=== PATIENT | female | born 1980 | race Caucasian/White ===

== ENCOUNTER 2022-12-03 12:12 | Emergency (ER) | payer OTHER, SELFPAY ==
[2022-12-03] VITALS (23 sets, daily range): BP systolic 114–176; BP diastolic 68–126; PULSE 57–79; RESP 7–23; TEMP 36.8; O2SAT 95–100; BMI 29.5
--- NOTE | 2022-12-03 12:41 | ECG_ITS ---
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
--- NOTE | 2022-12-03 12:41 | XR_ITS ---
The [address] [address] Patient Name: ELIEZER BUTLER MRN: [id number] date: 1980 Sex: F Assigned Patient Location: ED.MAIN Current Patient Location: ER Accession/Order Number: [id number] Exam Date: 12/03/2022 13:00 Report Date: 12/03/2022 13:37 At the request of: RAMONA TY Procedure: XR chest 1V EXAM: XR chest 1V HISTORY: chest pain COMPARISON: 07/14/2020. TECHNIQUE: Chest X-ray, 1 view. FINDINGS: Support devices: None. Lungs/pleura: No consolidation, effusion, or pneumothorax. Heart and mediastinum: Normal contours. Bones: No acute abnormality identified. XR/XR chest 1V IMPRESSION: No active disease. Electronically authenticated by: MOHSEN JEFF Date: 12/03/2022 13:37
--- NOTE | 2022-12-03 12:41 | ED.CHESTPAI1 ---
HPI - Chest Pain General Chief Complaint: Chest Pain Stated Complaint: CHEST PAIN/WEAKNESS Time Seen by Provider: 12/03/22 12:41 Source: patient Mode of arrival: walk-in Limitations: no limitations History of Present Illness HPI narrative: patient here complaining of chest discomfort earlier today. She says she was in the store shopping and she developed discomfort over her left chest that radiated into her left arm. She said lasted about three minutes. She said she stopped shopping, one out to the car and the pain eventually went away. She had some aching in her left shoulder. It did not radiate to the neck or the jaw. She said she's had some aching in the back of her neck for several weeks but this 1st time she had any discomfort in her chest. She says it did not feel like acid reflux or acid indigestion. Cardiovascular risk factors include hypertension but negative for family history diabetes cholesterol or tobacco products. She did not have any associated shortness of breath but she did get sweaty. She's not seen a aviation safety technician in the past and has not had any history of heart murmurs or cardiovascular disease. She did not notice any palpitations or fluttering at the time. She feels better. EKG is done on arrival and it is normal sinus rhythm. Her blood pressure was elevated it was rechecked manually and admits still elevated but not as abnormally elevated as it was with the automatic cuff. She states she is compliant with her blood pressure meds and doesn't miss a dose. Related Data Home Medications Medication Instructions Recorded Confirmed dexlansoprazole 60 mg 60 mg PO QDAY 12/03/22 12/03/22 capsule,biphase delayed release metoprolol succinate 50 mg 50 mg PO QDAY 12/03/22 12/03/22 tablet,extended release 24 hr Allergies Allergy/AdvReac Type Severity Reaction Status Date / Time No Known Drug Allergies Allergy Verified 12/03/22 12:21 [facility] [place] Social History Smoking status: Current every day smoker Exam Narrative Exam Narrative: awake alert relaxed does not appear apprehensive or nervous. Pleasant good historian vitals as noted here. Pulse ox is normal 12-lead EKG shows normal sinus rhythm. Her skin is warm and dry mucous members are moist and pink with no pallor or scleral icterus or anemia. Chest shows no clicks rubs or murmurs on auscultation of the heart. Lungs show lungs be clear with no wheezes rales or rhonchi. There is no pleural or pericardial rub. She has no discomfort in the epigastric area. Lower extremities show no edema colitis swelling or discomfort. Psych and neuro very pleasant oriented no neurological deficits symptoms and she's not typically anxious. Constitutional Vital Signs, click to edit/add: Last Vital Signs Temp 98.3 F 12/03/22 12:21 Pulse 68 12/03/22 14:31 Resp 17 12/03/22 14:31 BP 121/68 12/03/22 14:31 Pulse Ox 99 12/03/22 14:31 O2 Del Method Room Air 12/03/22 12:21 Course Vital Signs Vital signs: Vital Signs Temperature 98.3 F 12/03/22 12:21 Pulse Rate 67 12/03/22 12:21 Respiratory Rate 18 12/03/22 12:21 Blood Pressure 170/90 H 12/03/22 12:21 Pulse Oximetry 97 12/03/22 12:21 Oxygen Delivery Method Room Air 12/03/22 12:21 Temperature 98.3 F 12/03/22 12:21 Pulse Rate 68 12/03/22 14:31 Respiratory Rate 17 12/03/22 14:31 Blood Pressure 121/68 12/03/22 14:31 Pulse Oximetry 99 12/03/22 14:31 Oxygen Delivery Method Room Air 12/03/22 12:21 MDM - Chest Pain MDM Narrative Medical decision making narrative: patient's 12-lead EKG on arrival here shows normal sinus rhythm with normal VA QRS and QT intervals. There is no ectopy ischemia or ST segment elevation. The patient remained asymptomatic while here. Her troponin studies were done one and half hours after initial lab draw. Both studies are normal. She has only one cardiovascular risk factor. I believe she is okay for outpatient management but should follow-up to primary care doctor. When she arrived here her blood pressure was substantially elevated that it decreased and remained within normal parameters with no therapeutic intervention. That may have caused some of her symptoms. Lab Data Labs: Lab Results 12/03/22 12/03/22 12/03/22 Range/Units 12:32 12:53 13:45 WBC 6.5 (4.0-11.0) 10^3/uL RBC 3.89 L (4.20-5.40) 10^6/uL Hgb 12.5 (12.0-16.0) g/dL Hct 37.4 (36.0-48.0) % MCV 96.1 (81.0-99.0) fL MCH 32.1 (26.7-34.0) pg MCHC 33.4 (29.9-35.2) g/dL RDW 11.6 (11.0-15.0) % Plt Count 220 (150-450) 10^3/uL MPV 11.7 (9.5-13.5) fL Neut % (Auto) 63.0 (43.0-75.0) % Lymph % (Auto) 22.2 (20.5-60.0) % [place] % (Auto) 10.9 (1.7-12.0) % Eos % (Auto) 2.8 (0.9-7.0) % Baso % (Auto) 0.5 (0.2-2.0) % Neut # (Auto) 4.1 (1.4-6.5) 10^3/uL Lymph # (Auto) 1.4 (1.2-3.8) 10^3/uL [place] # (Auto) 0.7 (0.3-0.8) 10^3/uL Eos # (Auto) 0.2 (0.0-0.7) 10^3/uL Baso # (Auto) 0.0 (0.0-0.1) 10^3/uL Abs Immat Gran (auto) 0.04 H (0.00-0.03) 10^3/uL Imm/Tot Granulo (auto) 0.6 H (0.0-0.5) % Sodium 141 (136-145) mmol/L Potassium 3.8 (3.5-5.1) mmol/L Chloride 106 (98-107) mmol/L Carbon Dioxide 26.7 (21.0-32.0) mmol/L Anion Gap 12.1 BUN 10.0 (7.0-18.0) mg/dL Creatinine 0.74 (0.55-1.02) mg/dL Est GFR ( Amer) >60 (>=60) Est GFR (Non-Af Amer) >60 (>=60) BUN/Creatinine Ratio 13.5 Glucose 105 (74-106) mg/dL Calcium 8.2 L (8.5-10.1) mg/dL Total Bilirubin 0.4 (0.2-1.0) mg/dL AST 39 H (15-37) U/L ALT 64 H (14-59) U/L Alkaline Phosphatase 82 (46-116) U/L Troponin I High Sens 4.0 4.7 (4.0-51.3) pg/mL NT-Pro-B Natriuret Pep 57.0 (<=450.0) pg/mL Total Protein 7.4 (6.4-8.2) g/dL Albumin 3.7 (3.4-5.0) g/dL Globulin 3.7 g/dL Albumin/Globulin Ratio 1.0 Discharge Plan Discharge Chief Complaint: Chest Pain Clinical Impression: Chest pain, Hypertension Patient Disposition: Home, Self-Care Time of Disposition Decision: 14:53 Prescriptions / Home Meds: No Action dexlansoprazole 60 mg capsule,biphase delayed releas 60 mg PO QDAY metoprolol succinate 50 mg tablet extended release 24 hr 50 mg PO QDAY Additional Instructions: follow-up with primary care doctor if he have any further events for further diagnostic testing. Stand Alone Forms: Portal Instructions Referrals: Kimberly Boles MD [Primary Care Provider] - 1 week
[2022-12-03 13:02] LABS: Anion Gap 12.1
[2022-12-03 13:12] LABS: Alanine Aminotransferase 64 U/L (14-59); Albumin Level 3.7 g/dL (3.4-5.0); Alkaline Phosphatase 82 U/L (46-116); Aspartate Amino Transferase 39 U/L (15-37); BUN Creatinine Ratio 13.5; Bilirubin Total 0.4 mg/dL (0.2-1.0); Calcium 8.2 mg/dL (8.5-10.1); Carbon Dioxide 26.7 mmol/L (21.0-32.0); Chloride 106 mmol/L (98-107); Estimated GFR (African America >60 (>=60); Estimated GFR (Non-African Ame >60 (>=60); Globulin 3.7 g/dL; Glucose 105 mg/dL (74-106); Potassium 3.8 mmol/L (3.5-5.1); Sodium 141 mmol/L (136-145); Total Protein 7.4 g/dL (6.4-8.2)
[2022-12-03 13:12] LABS: Basophils Percent Auto 0.5 % (0.2-2.0); Eosinophils Absolute Auto 0.2 10^3/uL (0.0-0.7); Eosinophils Percent Auto 2.8 % (0.9-7.0); Hematocrit 37.4 % (36.0-48.0); Hemoglobin 12.5 g/dL (12.0-16.0); Immature Granulocytes Abs Auto 0.04 10^3/uL (0.00-0.03); Immature Granulocytes Pct Auto 0.6 % (0.0-0.5); Lymphocytes Absolute Auto 1.4 10^3/uL (1.2-3.8); Lymphocytes Percent Auto 22.2 % (20.5-60.0); Mean Corpuscular HGB Conc 33.4 g/dL (29.9-35.2); Mean Corpuscular Hemoglobin 32.1 pg (26.7-34.0); Mean Corpuscular Volume 96.1 fL (81.0-99.0); Mean Platelet Volume 11.7 fL (9.5-13.5); Monocytes Absolute Auto 0.7 10^3/uL (0.3-0.8); Monocytes Percent Auto 10.9 % (1.7-12.0); Neutrophils Absolute Auto 4.1 10^3/uL (1.4-6.5); Platelet Count 220 10^3/uL (150-450); Red Blood Count 3.89 10^6/uL (4.20-5.40); Red Cell Distribution Width 11.6 % (11.0-15.0); White Blood Count 6.5 10^3/uL (4.0-11.0)
[2022-12-03 14:27] LABS: Troponin I High Sensitivity 4.7 pg/mL (4.0-51.3)
== END 2022-12-03 15:01 | disposition home or self-care (01) ==
PROVIDERS: Emergency Provider Emergency Medicine Emergency Medical Services; PCP Family Medicine
DX: R07.9 Chest pain, unspecified (principal); I10 Essential (primary) hypertension; Z79.899 Other long term (current) drug therapy; F17.210 Nicotine dependence, cigarettes, uncomplicated
CPT/HCPCS: 36415; 71045; 80053; 83880; 84484; 85025; 93005; 99285

== ENCOUNTER 2023-08-17 10:14 | Emergency (ER) | payer OTHER, SELFPAY ==
[2023-08-17 10:17] VITALS: BP 165/98; PULSE 65; TEMP 37.1; O2SAT 97; BMI 39.6
--- NOTE | 2023-08-17 10:46 | ED_ITS ---
HPI HPI - General Adult General Chief complaint: Shortness of Breath/Dyspnea Stated complaint: THROAT PAIN Time Seen by Provider: 08/17/23 10:46 Source: patient Mode of arrival: walk-in Limitations: no limitations History of Present Illness HPI narrative: This patient is here Planing of a sore throat. Is been present for couple days. 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 She is not on any antibiotics. She has not had mononucleosis in the past. She does not have any classic viral type symptomatology is primarily a sore throat. She is not allergic to any medication. Her voice is normal. She does not have sneezing. No cough or congestion in the chest. Related Data Home Medications ?Medication ?Instructions ?Recorded ?Confirmed dexlansoprazole 60 mg 60 mg PO QDAY 12/03/22 12/03/22 capsule,biphase delayed release metoprolol succinate 50 mg 50 mg PO QDAY 12/03/22 12/03/22 tablet,extended release 24 hr Allergies Allergy/AdvReac Type Severity Reaction Status Date / Time No Known Drug Allergies Allergy Verified 12/03/22 12:21 Opioid HPI Opioid Management Most Recent Opioid Data: No Data to Display [facility] Social History Smoking status: Current every day smoker Exam Narrative Exam Narrative: Awake alert voice is normal phonation is normal she is not salivating airway is widely patent. On clinical examination of her throat she does have some tender adenitis on the right submandibular area but the left side is asymptomatic. Examining her hypopharynx the uvula and the palate are normal. She does have exudate and swelling of the right tonsillar area. There is no evidence of a peritonsillar abscess clinically. Her voice is normal. There is no other cervical adenitis so it is unlikely that she has mononucleosis. Her chest she has no cough congestion or respiratory distress. Her skin integument are normal with no petechia purpura rash or exanthem. Skin is warm and dry Constitutional Vital Signs, click to edit/add: Last Vital Signs Temp 98.7 F 08/17/23 10:17 Pulse 65 08/17/23 10:17 Resp 18 08/17/23 10:17 BP 165/98 H 08/17/23 10:17 Pulse Ox 97 08/17/23 10:17 O2 Del Method Room Air 08/17/23 10:17 Course Vital Signs Vital signs: Vital Signs Temperature 98.7 F 08/17/23 10:17 Pulse Rate 65 08/17/23 10:17 Respiratory Rate 18 08/17/23 10:17 Blood Pressure 165/98 H 08/17/23 10:17 Pulse Oximetry 97 08/17/23 10:17 Oxygen Delivery Method Room Air 08/17/23 10:17 Temperature 98.7 F 08/17/23 10:17 Pulse Rate 65 08/17/23 10:17 Respiratory Rate 18 08/17/23 10:17 Blood Pressure 165/98 H 08/17/23 10:17 Pulse Oximetry 97 08/17/23 10:17 Oxygen Delivery Method Room Air 08/17/23 10:17 Medical Decision Making MDM Narrative Medical decision making narrative: This patient is monoscreen is negative as clinically suspected. Somewhat surprising is her strep throat test is negative but due to clinical findings I will initiate antibiotic therapy pending culture Lab Data Labs: Lab Results 08/17/23 08/17/23 Range/Units 10:22 10:44 Monoscreen Negative (NEGATIVE) Streptococcus Screen Negative Discharge Plan Discharge Stand Alone Forms: Portal Instructions Chief Complaint: Shortness of Breath/Dyspnea Clinical Impression: Acute tonsillitis Patient Disposition: Home, Self-Care Time of Disposition Decision: 11:36 Prescriptions / Home Meds: No Action dexlansoprazole 60 mg capsule,biphase delayed releas 60 mg PO QDAY metoprolol succinate 50 mg tablet extended release 24 hr 50 mg PO QDAY Print Language: [place] Additional Instructions: Amoxicillin/Medrol pack Referrals: Kimberly Boles MD [Primary Care Provider] - 1 week
[2023-08-17 10:47] LABS: Internal Control Within Normal Limits; Strep A Antigen Screen Negative
[2023-08-17 11:21] LABS: Internal Control Within Normal Limits; Mono Screen NEGATIVE (NEGATIVE)
== END 2023-08-17 11:47 | disposition home or self-care (01) ==
PROVIDERS: Emergency Provider Emergency Medicine Emergency Medical Services; PCP Family Medicine
DX: J03.90 Acute tonsillitis, unspecified (principal)
CPT/HCPCS: 86308; 87070; 87880; 99283

== ENCOUNTER 2024-02-09 03:06 | Emergency (ER) | payer OTHER, SELFPAY ==
--- OUTSIDE RECORDS SUMMARY | 2024-02-09 03:12 | XMS_ITS | CCD ---
Author Organization [facility] Care Team Providers Care Research Fellow Name Role Phone CRISTINA RAMIREZ Attending Unavailable JOSELUIS LAO Referring Unavailable KIMBERLY BOTELLO Primary Care Unavailable JENNIFER OLIVIER Admitting Unavailable Kimberly Botello Primary Care Provider LEO Schroeder, DR MALLOY Consulting Unavailable LEO Schroeder, DR MALLOY Attending Unavailable LEO Schroeder, DR MALLOY Admitting Unavailable ROSMERY, DR KIMBERLY Peñaloza Primary Care Unavailable ROSMERY, DR KIMBERLY Peñaloza Primary Care Unavailable DR KIMBERLY BOTELLO Consulting Unavailable ROSMERY, DR KIMBERLY Peñaloza Attending Unavailable ROSMREY, DR KIMBERLY Peñaloza Admitting Unavailable Kimberly Botello Unavailable Medications Current Medications Medication Drug Class(es) Dates Sig (Normalized) Sig (Original) amoxicillin 500 mg oral capsule (4 sources) Penicillin-class Antibacterial Start: 05-10-2022 take 1 capsule by mouth every eight hours Amoxicillin 500 MG 1 capsule Orally every 8 hrs for 5 day(s) Jan, Active benzonatate 200 mg oral capsule (2 sources) Non-narcotic Antitussive Start: 01-23-2023 take 1 capsule by mouth every eight hours Benzonatate 200 MG 1 capsule Orally Three times a day for 10 day(s) Jan, Active cyclobenzaprine hydrochloride 10 mg oral tablet (2 sources) Muscle Relaxant Start: 08-24-2019 take 1 tablet by mouth every eight hours Cyclobenzaprine HCl 10 MG 1 tablet as needed Orally Three times a day for 10 days Aug, Active ferrous sulfate 325 mg oral tablet (1 source) Start: 05-30-2023 take 1 tablet by mouth once daily Ferrous Sulfate (Feosol) 325 mg (65 mg iron) tablet Active 325 MG PO Daily May 30, 2023 12:00am Iron (2 sources) Iron Active meloxicam 15 mg oral tablet (1 source) Nonsteroidal Anti-inflammatory Drug Start: 12-11-2023 take 15 mg by mouth once daily Meloxicam Active 15 MG PO Daily December 11, 2023 12:00am 24 hr metoprolol succinate 50 mg extended release oral tablet (4 sources) beta-Adrenergic Juancarlos Start: 05-30-2023 End: 08-10-2023 take 50 mg by mouth once daily Metoprolol Succinate Active 50 MG PO Daily August 10, 2023 8:39am take 1 tablet by mouth once kenneth y Metoprolol Succinate ER 50 MG take 1 tablet by mouth once daily for 30 days Active pantoprazole (2 sources) Proton Pump Inhibitor Pantoprazole Sodium Active predniSONE 20 mg oral tablet (2 sources) Start: 0 take 2 tablets by mouth every twenty-four hours predniSONE 20 MG 2 tablet Orally Once a day for 6 day(s) Aug, Active Completed/Discontinued Medications Medication Drug Class(es) Dates Sig (Normalized) Sig (Original) Azithromycin (1 source) Macrolide Antimicrobial Start: 05-30-2023 End: 12-11-2023 Azithromycin Discontinued 0 PO .COMPLEX 6 May 30, 2023 12:00am December 11, 2023 3:52pm For 250 mg dose pack: take 500 mg today (day 1), then 250 mg for 4 days (days 2-5) PO dexlansoprazole 60 mg delayed release oral capsule (3 sources) Proton Pump Inhibitor Start: 05-30-2023 End: 12-11-2023 take 60 mg by mouth once daily Dexlansoprazole Discontinued 60 MG PO Daily May 30, 2023 12:00am December 11, 2023 3:52pm Start: 06-02-2022 take 1 capsule by [facility] every twenty-four hours Dexilant 60 MG 1 capsule Orally Once a day for 30 days May, Active Ketorolac (2 sources) Nonsteroidal Anti-inflammatory Drug, Cyclooxygenase Inhibitor Start: 08-24-2019 Toradol per 15 mg Aug, 30 mg naproxen 500 mg oral tablet (3 sources) Nonsteroidal Anti-inflammatory Drug Start: 05-30-2023 End: 05-30-2023 take 500 mg by mouth twice daily Naproxen Discontinued 500 MG PO Twice daily May 30, 2023 12:00am May 30, 2023 1:42pm Start: 08-24-2019 take 1 tablet by [facility] every twelve hours at mealtime as needed Naproxen Sodium 550 MG 1 tablet with food or milk as needed Orally every 12 hrs for 7 days Aug, Active Problems Active Problems Problem Classification Problem Date Documented Da te Episodic/Chronic Abdominal pain (6 sources) Generalized abdominal pain; Translations: [Generalized abdominal pain] Onset: 08-22-2018 Episodic Acute bronchitis (2 sources) Acute bronchitis; Translations: [Acute bronchitis due to other specified organisms] Episodic Bacterial infection; unspecified site (1 source) Other specified bacterial agents as the cause of diseases classified elsewhere Episodic Conditions associated with dizziness or vertigo (3 sources) Benign paroxysmal positional vertigo; Translations: [Benign paroxysmal vertigo, right ear] 05-30-2023 Episodic Deficiency and other anemia (3 sources) Anemia; Translations: [Anemia, unspecified] 05-30-2023 Episodic Deficiency and other anemia (2 sources) Iron deficiency anemia; Translations: [Iron deficiency anemia, unspecified] Episodic Esophageal disorders (7 sources) Esophageal reflux finding; Translations: [Esophageal reflux] Onset: 03-28-2017 05-30-2023 Chronic Essential hypertension (3 sources) Essential hypertension; Translations: [Essential (primary) hypertension] 05-30-2023 Chronic Fluid and electrolyte disorders (3 sources) Hypokalemia; Translations: [Hypokalemia] Onset: 05-25-2021 Episodic Malaise and fatigue (2 sources) Fatigue; Translations: [Other fatigue] Episodic Nausea and vomiting (2 sources) Nausea; Translations: [Nausea] Episodic Nonspecific chest pain (2 sources) Chest pain; Translations: [Chest pain, unspecified] Episodic Other aftercare (1 source) Other nursing home (current) drug therapy; Translations: [OTH NURSING HOME CURRENT DRUG THERAPY] Onset: 05-12-2022 Episodic Other circulatory disease (2 sources) Elevated blood-pressure reading without diagnosis of hypertension; Translations: [Elevated blood-pressure reading, without diagnosis of hypertension] Episodic Other connective tissue disease (2 sources) Muscle pain; Translations: [MYALGIA, UNSPECIFIED SITE] Episodic Other gastrointestinal disorders (2 sources) Abdominal bloating; Translations: [Abdominal distension (gaseous)] Episodic Other lower respiratory disease (1 source) Cough; Translations: [Acute cough] 05-30-2023 Episodic Other nervous system disorders (3 sources) Loss of sense of smell; Translations: [Anosmia] 05-30-2023 Episodic Other nutritional; endocrine; and metabolic disorders (2 sources) Body mass index 30+ - obesity; Translations: [Body mass index 36.0-36.9, adult] Onset: 09-13-2017 Chronic Other nutritional; endocrine; and metabolic disorders (2 sources) Obese class II; Translations: [Body mass index 37.0-37.9, adult] Onset: 03-28-2017 Chronic Other nutritional; endocrine; and metabolic disorders (2 sources) Loss of appetite; Translations: [Anorexia] Episodic Other upper respiratory infections (4 sources) Chronic sinusitis; Translations: [Chronic sinusitis, unspecified] Chronic Other upper respiratory infections (7 sources) Acute pharyngitis, unspecified; Translations: [Acute pharyngitis] Onset: 05-10-2022 Episodic Screening and history of mental health and substance abuse codes (1 source) Personal history of nicotine dependence; Translations: [PERSONAL HISTORY OF NICOTINE DEPEND] Onset: 05-12-2022 Episodic Spondylosis; intervertebral disc disorders; other back problems (6 sources) Sacroiliac disorder; 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, sacral and sacrococcygeal region] 05-30-2023 Chronic Unclassified (2 sources) Exposure to acute respiratory syndrome coronavirus 2; Translations: [Contact with and (suspected) exposure to COVID-19] Viral infection (2 sources) Disease caused by 2019-nCoV; Translations: [COVID-19] Past or Other Problems Problem Classification Problem Date Documented Date Episodic/Chronic Abdominal hernia (2 sources) Diaphragmatic hernia; Translations: [Diaphragmatic hernia without obstruction or gangrene] Onset: 10-16-2018 Episodic Cardiac dysrhythmias (4 sources) Palpitations; Translations: [Palpitations] Onset: 03-28-2017 Episodic Deficiency and other anemia (4 sources) Iron deficiency anemia, unspecified; Translations: [IRON DEFICIENCY ANEMIA UNSPECIFIED] Onset: 05-21-2021 Episodic Gastritis and duodenitis (2 sources) Acute gastritis; Translations: [Acute gastritis without mention of hemorrhage] Onset: 10-16-2018 Episodic Other skin disorders (2 sources) Mass in head or neck; Translations: [Swelling, mass, or lump in head and neck] Onset: 09-13-2017 Episodic Residual codes; unclassified (2 sources) Requires influenza virus vaccination; Translations: [Need for prophylactic vaccination and inoculation, Influenza] Onset: 01-10-2018 Episodic Residual codes; unclassified (2 sources) C/O - a back symptom; Translations: [Other symptoms referable to back] Onset: 02-02-2018 Episodic Unclassified (2 sources) Screening; Translations: [Screening for unspecified condition] Onset: 01-10-2018 Results Test Name Value Interpretation Reference Range Facility CBC AUTO DIFFon 05-21-2021 BASO # 0.0 103/ul Normal 0.0-0.1 [facility] Comment on above: Performed By: #### C BC #### [facility] [address] [address] [address] Da Graham Basophils/100 WBC (Bld) 0.3 % Normal 0.2-2.0 [facility] Comment on above: Performed By: #### C BC #### [facility] [address] [address] [address] Da Graham EO # 0.2 103/ul Normal 0.0-0.7 [facility] Comment on above: Performed By: #### C BC #### [facility] [address] [address] [address] Da Graham Eosinophils/100 WBC (Bld) 2.3 % Normal 0.9-7.0 [facility] Comment on above: Performed By: #### C BC #### [facility] [address] [address] [address] Da Graham Erythrocyte distribution width (RBC) [Ratio] 11.5 % Normal 11.0-15.0 [facility] Comment on above: Performed By: #### C BC #### [facility] [address] [place] [address] Dr. Da Graham Hematocrit (Bld) [Volume fraction] 41.0 % Normal 36.0-48.0 [facility] Comment on above: Performed By: #### C BC #### [facility] [address] [address] [address] Da Graham Hemoglobin (Bld) [Mass/Vol] 13.5 g/dL Normal 12.0-16.0 [facility] Comment on above: Performed By: #### C BC #### [facility] [address] [address] [address] Da Graham IG # 0.04 10e3/ul Critically high 0.00-0.03 [facility] Comment on above: Performed By: #### C BC #### [facility] [address] [address] [address] Da Graham IG % 0.5 % Normal 0.0-0.5 [facility] Comment on above: Performed By: #### C BC #### [facility] [address] [place] [address] Dr. Da Graham LYMPH # 1.9 103/ul Normal 1.2-3.8 [facility] Comment on above: Performed By: #### C BC #### [facility] [address] [place] [address] Dr. Da Graham Lymphocytes/100 WBC (Bld) 25.2 % Normal 20.5-60.0 [facility] Comment on above: Performed By: #### C BC #### [facility] [address] [place] [address] Dr. Da Graham MANUAL DIFF REQ NO Normal [facility] Comment on above: Performed By: #### C BC #### [facility] [address] [place] [address] Dr. Da Graham MCH (RBC) [Entitic mass] 31.6 pg Normal 26.7-34.0 [facility] Comment on above: Performed By: #### C BC #### [facility] [address] [place] [address] Dr. Da Graham MCHC (RBC) [Mass/Vol] 32.9 g/dL Normal 29.9-35.2 [facility] Comment on above: Performed By: #### C BC #### [facility] [address] [place] [address] Dr. Da Graham MCV (RBC) [Entitic vol] 96.0 fL Normal 81.0-99.0 [facility] Comment on above: Performed By: #### C BC #### [facility] [address] [place] [address] Dr. Da Graham MONO # 0.6 103/ul Normal 0.3-0.8 [facility] Comment on above: Performed By: #### C BC #### [facility] [address] [place] [address] Dr. Da Graham Monocytes/100 WBC (Bld) 7.7 % Normal 1.7-12.0 [facility] Comment on above: Performed By: #### C BC #### [facility] [address] [place] [address] Dr. Da Graham NEUT # 4.8 103/ul Normal 1.4-6.5 [facility] Comment on above: Performed By: #### C BC #### [facility] [address] [place] [address] Dr. Da Graham Neutrophils/100 WBC (Bld) 64.0 % Normal 43.0-75.0 [facility] Comment on above: Performed By: #### C BC #### [facility] [address] [place] [address] Dr. Da Graham Platelet mean volume (Bld) [Entitic vol] 11.4 fL Normal 9.5-13.5 [facility] Comment on above: Performed By: #### C BC #### [facility] [address] [place] [address] Dr. Da Graham PLT 247 103/ul Normal 150-450 [facility] Comment on above: Performed By: #### C BC #### [facility] [address] [place] [address] Dr. Da Graham RBC 4.27 106/ul Normal 4.20-5.40 [facility] Comment on above: Performed By: #### C BC #### [facility] [address] [place] [address] Dr. Da Graham WBC 7.5 103/ul Normal 4.0-11.0 [facility] Comment on above: Performed By: #### C BC #### [facility] [address] [address] [address] Da Graham FERRITINon 05-21-2021 Ferritin [Mass/Vol] 132.0 ng/mL Normal 6.2-137.0 [facility] Comment on above: Performed By: #### F ERR #### [facility] [address] [place] [address] Dr. Da Graham PROF CHEM 8 (BAS METB)on Anion gap [Moles/Vol] 11.2 mmol/L Normal [facility] Comment on above: Performed By: #### B MP #### [facility] [address] [place] [address] Dr. Da Graham Calcium [Mass/Vol] 8.0 mg/dL Critically low 8.4-10.2 [facility] Comment on above: Performed By: #### B MP #### [facility] [address] [place] [address] Dr. Da Graham Chloride [Moles/Vol] 104 mmol/L Normal 98-107 [facility] Comment on above: Performed By: #### B MP #### [facility] [address] [place] [address] Dr. Da Graham CO2 [Moles/Vol] 27.4 mmol/L Normal 22.0-30.0 [facility] Comment on above: Performed By: #### B MP #### [facility] [address] [place] [address] Dr. Da Graham Creatinine [Mass/Vol] 0.66 mg/dL Normal 0.52-1.04 [facility] Comment on above: Performed By: #### B MP #### [facility] [address] [place] [address] Dr. Da Graham EGFR-AF ANGUILLAN >60 Normal >=60 [facility] Comment on above: Performed By: #### B MP #### [facility] [address] [place] [address] Dr. Da Graham EGFR-NON AF ANGUILLAN >60 Normal >=60 [facility] Comment on above: Performed By: #### B MP #### [facility] [address] [address] [address] Da Graham Glucose [Mass/Vol] 129 mg/dL Critically high 74-106 [facility] Comment on above: Performed By: #### B MP #### [facility] [address] [address] [address] Da Graham Potassium [Moles/Vol] 3.6 mmol/L Normal 3.4-5.0 [facility] Comment on above: Performed By: #### B MP #### [facility] [address] [address] [address] Da Graham Sodium [Moles/Vol] 139 mmol/L Normal 137-145 [facility] Comment on above: Performed By: #### B MP #### [facility] [address] [address] [address] Da Graham Urea nitrogen [Mass/Vol] 10.0 mg/dL Normal 7.0-17.0 [facility] Comment on above: Performed By: #### B MP #### [facility] [address] [address] [address] Da Graham Urea nitrogen/Creatinine [Mass ratio] 15.2 mg/mg Normal [facility] Comment on above: Performed By: #### B MP #### [facility] [address] [address] [address] Da Luo 09[facility]16-[facility] EVELINE PLATT ([id number]) 1980 F Date Time Provider Department 09/16/20 BLAKE PATEL During your visit today, we recorded the following information about you: Alycia Ray 09/16/2020 1:53 PM Signed Patient did not show for appointment. Allergies As of Date: 09/16/2020 (No Known Allergies) Date Reviewed: 06/29/2020 Reviewed by: Cat Benson) Steve - Fully Assessed Reason for Visit: Missed Appointment [1304] Prescriptions as of 09/16/2020 Sig: METOPROLOL SUCCINATE ER 50 MG* Take 50 mg by mouth once kenneth* PANTOPRAZOLE 40 MG TABLET,DEL* Take 40 mg by mouth. IRON ORAL Take by mouth. DEXILANT 60 MG CAPSULE, DELAY* Take by mouth. METOPROLOL TARTRATE 50 MG TAB* Take 50 mg by mouth once kenneth* NORGESTIMATE 0.25 MG-ETHINYL * Take 1 tablet by mouth once d* FLONASE NASAL Use in the nose. MECLIZINE 25 MG TABLET Take 25 mg by mouth three reza* CETIRIZINE 5 MG-PSEUDOEPHEDRI* Take 1 tablet by mouth twice * Problem List As Of Date 09/16/2020 Noted Resolved Iron deficiency anemia due to chronic blood los*05/13/2020 Encounter Status:Closed by ALYCIA FELIX on 09/17/20 [facility] 06-24-2020 [facility] Visit (SP) Office ([facility]) EVELINE PLATT ([id number]) 1980 F Date Time Provider Department 06/24/20 2:15 PM BLAKE PATEL During your visit today, we recorded the following information about you: Temperature Pulse Respiration Blood pressure 97.4 degrees 98/minute 16/minute 135/68 Weight Height Last Period 94.1 kg 1.549 m 05/25/20 Blake Patel MD 06/25/2020 6:20 AM Signed NAME: Eveline Platt CLINIC NO.: [id number] DATE OF SERVICE: June 24, 2020 Some elements in this clinic note that are critical to medical decision making have been carefully reviewed and included from a prior clinic note dated: May 13, 2020 Referring Provider: Kimberly Botello Additional Clinicians involved in Eveline Platt's care: CC: anemia ASSESSMENT: 39 yo woman with chronic anemia requiring transfusions of blood as well as IV iron approximately 2 years ago (2018) now re-presenting with anemia and iron defficiency that is responding to oral iron at outset. I will schedule her for iron but do not anticipate her needing it. PLAN: 1. Repeat labs in 12 weeks 2. RTC in 12 weeks IV iron after 3. Take iron tabs M-F skip weekends HPI: Updated Visit, June 24, 2020: Eveline is 39 years old and returns in follow-up with improvement in her iron deficiency and anemia. She is still taking iron tablets Monday through Monday skipping the weekends and doing well with this plan. Her hemoglobin continues to improve and is now 13.1. She has no microcytic findings on her hemogram. However she notes being very fatigued. She reports that she does not sleep well due to back pain. We discussed potential causes of this including the potential for sleep apnea as well as the association with back pain and overall body weight. I kindly encouraged her to reexamine her nutritional intake and modify this as exercise is very difficult for her. She was interested in a nutrition consult. Initial Visit, May 13, 2020: Eveline Platt presents today Hematology and Oncology evaluation. She is a 39 year old female who presents with mild anemia and iron deficiency. In early March 2020, she had a hgb around 11.5 g/dL and was started on iron. She stopped iron approximately 1 month later but then developed purplish patches on her thighs and was seen in the ER where she was again identified as havinf anemia and low ferritin of 9. She presents for my recommendations. She also reports having needed transfusions approximately 2 years ago as well as iron infusions. She had pica at the time. She doesn't with this current presentation. She also endorses heavy menses. 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 Per HPI and otherwise negative by full review of organ systems. ECOG PERFORMANCE STATUS: 0 PHYSICAL EXAMINATION: Vitals: BP 135/68 Pulse 98 Temp (Src) 97.4 (Temporal) Resp 16 Ht 5' .984 (1.55m) Wt 207 lb 6.4 oz (94.1kg) SpO2 98% LMP 05/25/2020 BMI 39.21 kg/(m2). Body surface area is 2.01 meters squared. Exam limited to gross visualization where appropriate due to COVID-19. Gen.: This is an age-appropriate patient in no acute distress. Head: Appears atraumatic with no visible lesions. Eyes: Pupils equally round and reactive to light, extraocular muscles are intact. Neck: Supple. Mouth: Mucous membranes appeared to be moist. Respiratory: Appears to be respiring comfortably. Neurologic: Nonfocal to gross visualization. Alert and oriented ?3. Psychiatric: No evidence of inappropriate anxiety or depression. Skin: Visible areas of skin without rash, lesions, wounds or petechiae. ALLERGIES: ALLERGIES No Known Allergies MEDICATIONS: metoprolol succinate ER (TOPROL XL) 50 mg 24 hr tablet Take 50 mg by mouth once daily. pantoprazole DR (PROTONIX) 40 mg tablet Take 40 mg by mouth. ferrous sulfate (IRON ORAL) Take by mouth. Dexlansoprazole (DEXILANT) 60 mg CpDM Take by mouth. metoprolol tartrate, short acting, (LOPRESSOR) 50 mg tablet Take 50 mg by mouth once daily. norgestimate 0.25 mg-ethinyl estradiol 35 mcg (SPRINTEC) 0.25-35 mg-mcg per tablet Take 1 tablet by mouth once daily. fluticasone propionate (FLONASE NASAL) Use in the nose. meclizine (ANTIVERT) 25 mg tab Take 25 mg by mouth three times daily. cetirizine-pseudoephe drine (CETIRI-D) 5-120 mg per tablet Take 1 tablet by mouth twice daily. LABORATORY VALUES: WBC (k/uL) Date Value 06/24/2020 6.98 RBC (m/uL) Date Value 06/24/2020 4.45 Hemoglobin (g/dL) Date Value 06/24/2020 13.1 Hematocrit (%) Date Value 06/24/2020 40.6 MCV (fL) Date Value 06/24/2020 91.2 MCH (pG) Date Value 06/24/2020 29.4 MCHC (g/dL) Date Value 06/24/2020 32.3 RDW-CV (%) Date Value 06/24/2020 13.2 Platelet Count (k/uL) Date Value 06/24/2020 235 MPV (fL) Date Value 06/24/2020 11.5 Glucose (mg/dL) Date (more content not included)... Normal [facility] Comp Metabolic Panelon 06-24 Albumin [Mass/Vol] 4.5 g/dL Normal 3.9-4.9 [facility] ALP [Catalytic activity/Vol] 86 U/L Normal 34-123 [facility] ALT [Catalytic activity/Vol] 27 U/L Normal 7-38 [facility] Anion gap [Moles/Vol] 7 mmol/L Low 9-18 [facility] AST [Catalytic activity/Vol] 22 U/L Normal 13-35 [facility] Bilirubin [Mass/Vol] 0.2 mg/dL Normal 0.2-1.3 [facility] Calcium [Mass/Vol] 9.0 mg/dL Normal 8.5-10.2 [facility] Chloride [Moles/Vol] 106 mmol/L High 97-105 [facility] CO2 [Moles/Vol] 25 mmol/L Normal 22-30 [facility] Creatinine [Mass/Vol] 0.64 mg/dL Normal 0.58-0.96 [facility] eGFR- Amer. >60 Normal [facility] eGFR-All Other Races >60 Normal [facility] Comment on above: Result Comment: eGFR (Estimated GFR) Units of measure: mL/min/1.73 meters squared eGFR is derived from the reexpressed MDRD Study equation using the following parameters: serum creatinine, age, gender and race. The creatinine assay has been calibrated to be traceable to IDMS. An eGFR <60 mL/min/1.73m2 for >3 months is consistent with chronic kidney disease. Refer to KDOQI guidelines for clinical interpretation. In patients with unstable renal function, e.g. those with acute kidney injury, the eGFR may not accurately reflect actual GFR. Glucose [Mass/Vol] 101 mg/dL High 74-99 [facility] Comment on above: Result Comment: [facility] Association (ADA) provides guidance for cutoff values for fasting glucose and random glucose. The ADA defines fasting as no caloric intake for at least 8 hours. Fasting plasma glucose results between 100 to 125 mg/dL indicate increased risk for diabetes (prediabetes). Fasting plasma glucose results greater than or equal to 126 mg/dL meet the criteria for diagnosis of diabetes. In the absence of unequivocal hyperglycemia, results should be confirmed by repeat testing. In a patient with classic symptoms of hyperglycemia or hyperglycemic crisis, random plasma glucose results greater than or equal to 200 mg/dL meet the criteria for diagnosis of diabetes. Reference: Standards of Medical Care in Diabetes 2016, [place] Diabetes Association. Diabetes Care. 2016.39(Suppl 1). Potassium [Moles/Vol] 3.9 mmol/L Normal 3.7-5.1 [facility] Protein [Mass/Vol] 7.1 g/dL Normal 6.3-8.0 [facility] Sodium [Moles/Vol] 138 mmol/L Normal 136-144 [facility] Urea nitrogen [Mass/Vol] 10 mg/dL Normal 7-21 [facility] Ferritinon 06-24-2020 Ferritin [Mass/Vol] 64.2 ng/mL Normal 14.7-205.1 [facility] Comment on above: Performed By: #### F ERR, IRON #### [facility] [address] [place] [address] Iron and TIBCon 06-24-2020 Iron [Mass/Vol] 43 ug/dL Normal 41-186 [facility] Comment on above: Performed By: #### F ERR, IRON #### [facility] [address], [place] [address] TIBC 305 ug/dL Normal 232-386 [facility] Comment on above: Performed By: #### F ERR, IRON #### [facility] [address], [place] [address] Transferrin Saturatn 14 % Low 15-57 [facility] Comment on above: Performed By: #### F ERR, IRON #### [facility] [address], [place] [address] Remote CBCDIF (for [facility] use o nly)on 06-24-2020 Abs Baso <0.03 Normal <0.11 [facility] Abs [place] 0.76 k/uL Normal <0.87 [facility] Abs Neut 4.47 k/uL Normal 1.45-7.50 [facility] Absolute nRBC <0.01 Normal <0.01 [facility] Basophils/100 WBC (Bld) 0.3 % Normal [facility] DTYPE Auto Diff Normal [facility] Eosinophils (Bld) [#/Vol] 0.13 10*3/uL Normal <0.46 [facility] Eosinophils/100 WBC (Bld) 1.9 % Normal [facility] Erythrocyte distribution width (RBC) [Ratio] 13.2 % Normal 11.5-15.0 [facility] Hematocrit (Bld) [Volume fraction] 40.6 % Normal 36.0-46.0 [facility] Hemoglobin (Bld) [Mass/Vol] 13.1 g/dL Normal 11.5-15.5 [facility] Lymphocytes (Bld) [#/Vol] 1.60 10*3/uL Normal 1.00-4.00 [facility] Lymphocytes/100 WBC (Bld) 22.9 % Normal [facility] MCH 29.4 pG Normal 26.0-34.0 [facility] MCHC (RBC) [Mass/Vol] 32.3 g/dL Normal 30.5-36.0 [facility] MCV (RBC) [Entitic vol] 91.2 fL Normal 80.0-100.0 [facility] Monocytes/100 WBC (Bld) 10.9 % Normal [facility] Neutrophils/100 WBC (Bld) 64.0 % Normal [facility] NRBCs 0.0 /100 WBC Normal 0 [facility] Platelet mean volume (Bld) [Entitic vol] 11.5 fL Normal 9.0-12.7 [facility] Platelets (Bld) [#/Vol] 235 10*3/uL Normal 150-400 [facility] RBC (Bld) [#/Vol] 4.45 10*6/uL Normal 3.90-5.20 [facility] WBC (Bld) [#/Vol] 6.98 10*3/uL Normal 3.70-11.00 [facility] CNOVSPon 05-13-2020 CNOVSP Visit (SP) Office ([place]) EVELINE PLATT ([id number]) 1980 F Date Time Provider Department 05/13/20 11:15 AM BLAKE PATEL During your visit today, we recorded the following information about you: Temperature Pulse Respiration Blood pressure 97.3 degrees 79/minute 18/minute 142/87 Weight Height 92.6 kg 1.549 m Blake Patel MD 05/13/2020 12:21 PM Signed NAME: Eveline Platt CLINIC NO.: [id number] DATE OF SERVICE: May 13, 2020 Referring Provider: Kimberly Botello Consultation requested by Dr. Botello for an opinion regarding Ms. Eveline Platt, and my final recommendations will be communicated back to the requesting physician by way of shared medical record or letter via US mail. Additional Clinicians involved in Eveline Platt's care: CC: anemia ASSESSMENT: 39 yo woman with chronic anemia requiring transfusions of blood as well as IV iron approximately 2 years ago (2017) now re-presenting with anemia and iron defficiency that is responding to oral iron at outset. I will schedule her for iron but do not anticipate her needing it. She knows to call me if she has issues with oral iron. PLAN: 1. Labs today 2. Repeat in 6 weeks 3. RTC in 6 weeks IV iron after 4. Take iron tabs M-F skip weekends HPI: Initial Visit, May 13, 2020: Eveline Platt presents today Hematology and Oncology evaluation. She is a 39 year old female who presents with mild anemia and iron deficiency. In early March 2020, she had a hgb around 11.5 g/dL and was started on iron. She stopped iron approximately 1 month later but then developed purplish patches on her thighs and was seen in the ER where she was again identified as havinf anemia and low ferritin of 9. She presents for my recommendations. She also reports having needed transfusions approximately 2 years ago as well as iron infusions. She had pica at the time. She doesn't with this current presentation. She also endorses heavy menses. 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 Per HPI and otherwise negative by full review of organ systems. ECOG PERFORMANCE STATUS: 0 PHYSICAL EXAMINATION: Vitals: BP 142/87 Pulse 79 Temp (Src) 97.3 (Temporal) Resp 18 Ht 5' 1 (1.55m) Wt 204 lb 3.2 oz (92.6kg) SpO2 99% BMI 38.60 kg/(m2). Body surface area is 2 meters squared. Exam limited to gross visualization where appropriate due to COVID-19. Gen.: This is an age-appropriate patient in no acute distress. Head: Appears atraumatic with no visible lesions. Eyes: Pupils equally round and reactive to light, extraocular muscles are intact. Neck: Supple. Mouth: Mucous membranes appeared to be moist. Respiratory: Appears to be respiring comfortably. Neurologic: Nonfocal to gross visualization. Alert and oriented ?3. Psychiatric: No evidence of inappropriate anxiety or depression. Skin: Visible areas of skin without rash, lesions, wounds or petechiae. ALLERGIES: ALLERGIES No Known Allergies MEDICATIONS: ferrous sulfate (IRON ORAL) Take by mouth. Dexlansoprazole (DEXILANT) 60 mg CpDM Take by mouth. metoprolol tartrate, short acting, (LOPRESSOR) 50 mg tablet Take 50 mg by mouth once daily. norgestimate 0.25 mg-ethinyl estradiol 35 mcg (SPRINTEC) 0.25-35 mg-mcg per tablet Take 1 tablet by mouth once daily. fluticasone propionate (FLONASE NASAL) Use in the nose. meclizine (ANTIVERT) 25 mg tab Take 25 mg by mouth three times daily. cetirizine-pseudoephe drine (CETIRI-D) 5-120 mg per tablet Take 1 tablet by mouth twice daily. LABORATORY VALUES: WBC (k/uL) Date Value 05/13/2020 5.77 RBC (m/uL) Date Value 05/13/2020 4.30 Hemoglobin (g/dL) Date Value 05/13/2020 12.7 Hematocrit (%) Date Value 05/13/2020 38.8 MCV (fL) Date Value 05/13/2020 90.2 MCH (pG) Date Value 05/13/2020 29.5 MCHC (g/dL) Date Value 05/13/2020 32.7 RDW-CV (%) Date Value 05/13/2020 13.4 Platelet Count (k/uL) Date Value 05/13/2020 240 MPV (fL) Date Value 05/13/2020 11.2 DIAGNOSIS: (D50.0) Iron deficiency anemia due to chronic blood loss (primary encounter diagnosis) Plan: CBC + DIFF (FOR REMOTE [facility] USE), COMP METABOLIC PANEL, FERRITIN BLD, IRON + TIBC PAST MEDICAL HISTORY Diagnosis Date - Benign paroxysmal positional vertigo - Gastritis - GERD (gastroesophageal reflux disease) - Hiatal hernia - HTN (hypertension) - Iron deficiency anemia - Mass of submandibular region - Myalgia - Tachycardia PAST SURGICAL HISTORY Procedure Laterality Date - SALPINGECTOMY OR OOPHERECTOMY-ECTOPIC Right Social History Tobacco Use - Smoking status: Never Smoker - Smokeless tobacco: Never Used Substance Use Topics - Alcohol use: Not on file - Drug use: Not on file FAMILY HISTORY Problem Relation Age of Onset - Cancer Mother Brain tumor Blake Patel MD, CPE [facility] (more content not included)... Normal [facility] Comp Metabolic Panelon 05-13 Albumin [Mass/Vol] 4.4 g/dL Normal 3.9-4.9 [facility] ALP [Catalytic activity/Vol] 81 U/L Normal 34-123 [facility] ALT [Catalytic activity/Vol] 38 U/L Normal 7-38 [facility] Anion gap [Moles/Vol] 7 mmol/L Low 9-18 [facility] AST [Catalytic activity/Vol] 29 U/L Normal 13-35 [facility] Bilirubin [Mass/Vol] 0.3 mg/dL Normal 0.2-1.3 [facility] Calcium [Mass/Vol] 9.2 mg/dL Normal 8.5-10.2 [facility] Chloride [Moles/Vol] 105 mmol/L Normal 97-105 [facility] CO2 [Moles/Vol] 27 mmol/L Normal 22-30 [facility] Creatinine [Mass/Vol] 0.69 mg/dL Normal 0.58-0.96 [facility] eGFR- Amer. >60 Normal [facility] eGFR-All Other Races >[address] [facility] Comment on above: Result Comment: eGFR (Estimated GFR) Units of measure: mL/min/1.73 meters squared eGFR is derived from the reexpressed MDRD Study equation using the following parameters: serum creatinine, age, gender and race. The creatinine assay has been calibrated to be traceable to IDMS. An eGFR <60 mL/min/1.73m2 for >3 months is consistent with chronic kidney disease. Refer to KDOQI guidelines for clinical interpretation. In patients with unstable renal function, e.g. those with acute kidney injury, the eGFR may not accurately reflect actual GFR. Glucose [Mass/Vol] 127 mg/dL High 74-99 [facility] Comment on above: Result Comment: The [place] Diabetes Association (ADA) provides guidance for cutoff values for fasting glucose and random glucose. The ADA defines fasting as no caloric intake for at least 8 hours. Fasting plasma glucose results between 100 to 125 mg/dL indicate increased risk for diabetes (prediabetes). Fasting plasma glucose results greater than or equal to 126 mg/dL meet the criteria for diagnosis of diabetes. In the absence of unequivocal hyperglycemia, results should be confirmed by repeat testing. In a patient with classic symptoms of hyperglycemia or hyperglycemic crisis, random plasma glucose results greater than or equal to 200 mg/dL meet the criteria for diagnosis of diabetes. Reference: Standards of Medical Care in Diabetes 2016, [place] Diabetes Association. Diabetes Care. 2016.39(Suppl 1). Potassium [Moles/Vol] 4.2 mmol/L Normal 3.7-5.1 [facility] Protein [Mass/Vol] 7.1 g/dL Normal 6.3-8.0 [facility] Sodium [Moles/Vol] 139 mmol/L Normal 136-144 [facility] Urea nitrogen [Mass/Vol] 9 mg/dL Normal 7-21 [facility] Ferritinon 05-13-2020 Ferritin [Mass/Vol] 45.5 ng/mL Normal 14.7-205.1 [facility] Comment on above: Performed By: #### F ERR, IRON #### [facility] [address] [place] [address] Iron and TIBCon 05-13-2020 Iron [Mass/Vol] 85 ug/dL Normal 41-186 [facility] Comment on above: Performed By: #### F ERR, IRON #### [facility] [address] [place] [address] TIBC 317 ug/dL Normal 232-386 [facility] Comment on above: Performed By: #### F ERR, IRON #### [facility] [address] [place] [id number] Transferrin Saturatn 27 % Normal 15-[address] [facility] Comment on above: Performed By: #### F ERR, IRON #### [facility] [address] [place] [address] Remote CBCDIF (for [facility] use o nly)on 05-13-2020 Abs Baso <0.03 Normal <0.11 [facility] Abs Maui 0.64 k/uL Normal <0.87 [facility] Abs Neut 3.85 k/uL Normal 1.45-7.50 [facility] Absolute nRBC <0.01 Normal <0.01 [facility] Basophils/100 WBC (Bld) 0.3 % Normal [facility] DTYPE Auto Diff Normal [facility] Eosinophils (Bld) [#/Vol] 0.19 10*3/uL Normal <0.46 [facility] Eosinophils/100 WBC (Bld) 3.3 % Normal [facility] Erythrocyte distribution width (RBC) [Ratio] 13.4 % Normal 11.5-15.0 [facility] Hematocrit (Bld) [Volume fraction] 38.8 % Normal 36.0-46.0 [facility] Hemoglobin (Bld) [Mass/Vol] 12.7 g/dL Normal 11.5-15.5 [facility] Lymphocytes (Bld) [#/Vol] 1.05 10*3/uL Normal 1.00-4.00 [facility] Lymphocytes/100 WBC (Bld) 18.2 % Normal [facility] MCH 29.5 pG Normal 26.0-34.0 [facility] MCHC (RBC) [Mass/Vol] 32.7 g/dL Normal 30.5-36.0 [facility] MCV (RBC) [Entitic vol] 90.2 fL Normal 80.0-100.0 [facility] Monocytes/100 WBC (Bld) 11.1 % Normal [facility] Neutrophils/100 WBC (Bld) 67.1 % Normal [facility] NRBCs 0.0 /100 WBC Normal 0 [facility] Platelet mean volume (Bld) [Entitic vol] 11.2 fL Normal 9.0-12.7 [facility] Platelets (Bld) [#/Vol] 240 10*3/uL Normal 150-400 [facility] RBC (Bld) [#/Vol] 4.30 10*6/uL Normal 3.90-5.20 [facility] WBC (Bld) [#/Vol] 5.77 10*3/uL Normal 3.70-11.00 [facility] Coding Summaryon 01-22-2019 Coding Summary CODING DATE: 01/22/2019 [facility] STATUS: Home 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 APC DESCRIPTION 5361 Level 1 Laparoscopy and Related Services ADMIT DX: REASON FOR VISIT DX: R10.2 Pelvic and perineal pain FINAL DX: PRINCIPAL: N83.01 Follicular cyst of right ovary SECONDARY: N83.8 Other noninflammatory disorders of ovary, fallopian tube and broad ligament N99.71 Accidental puncture and laceration of a genitourinary system organ or structure during a genitourinary system procedure Y92.234 Operating room of hospital as the place of occurrence of the external cause 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) PYMT PROC APC STAT DESCRIPTION DOCTOR NAME DATE 24974 7213 J1 Laparoscopy, surgical; Eliezer Torres DO with removal of adnexal structures (partial or total oophorectomy and/or salpingectomy) RT Right side (used to identify procedures performed on the right side of the body) 42454 3381 J1 Laparoscopy, surgical; Eliezer Torres DO with fulguration or excision of lesions of the ovary, pelvic viscera, or peritoneal surface by any method LT Left side (used to identify procedures performed on the left side of the body) NOTE: The code number assigned matches the documented diagnosis and / or procedure in the patient's chart. However, the narrative phrase printed from the coding software may appear abbreviated, or result in slightly different terminology. Coded By: Awilda Edouard Date Saved: 01/22/2019 10:54 am [facility] Lab - AP Resultson 9 Lab - AP Results [id number] .00OTGTIFF [facility] MAGR Postoperative Recordon 01-21-2019 MAGR Postoperative Record MAGR Phase II Record Summary Primary Physician: Eliezer Torres DO Finalized Date/Time: 01/21/19 13:15:02 Pt. Name: EVELINE PLATT/Sex: 1980 FEMALE Med Rec #: [id number] Physician: Eliezer Torres DO Financial #: [id number] Pt. Type: D Room/Bed: / Admit/Disch: 01/15/19 08:48:00 - 01/15/19 15:57:00 Institution: Phase II Case Times MAGR Pre-Care Text: Patient is free from s/s of injury. Patient remains free from compromised physical state related to surgery or anesthesia. Patient comfort maintained. Patient/family verbalize understanding of discharge instructions. Entry 1 In PACU II 01/15/19 14:21:00 Discharge from PACU 01/15/19 15:57:00 II Last Modified By: Brittany Soler RN 01/21/19 13:14:58 Post-Care Text: The patient remains free from s/s of injury. Patient's vital signs stable, circulation maintained, return to preop mental and physical status, opsite/dressing intact, minimal or absent nausea and vomiting, tolerates po intake. Patient verbalizes adequate pain control. Patient/family express understanding of discharge instructions. Finalized By: Brittany Soler RN Document Signatures Signed By: Brittany Soler RN 01/21/19 13:15 [facility] Pathology Sendout Teston Pathology Send Out. See Report [facility] Comment on above: Order Comment: Right fallopian tube and right ovaryPost op Dx: Pelvic pain Performed By: #### 2 [id number] ####[facility] (DEFAULT)[address] [place] [address] History and Physicalon 01-17 History and Physical [id number] .[facility] - Surgeon/P hysicianon 01-17-2019 Operative Report - Surgeon/Physician [id number] .00[facility] Provider Orderson 01-17-2019 Provider Orders [id number] [place] [address] Consent Formson 01-16-2019 Consent Forms [id number] [place] [address] MAGR Intraoperative Recordon 01-16-2019 MAGR Intraoperative Record MAGR Intra-Op Record Summary Primary Physician: Eliezer Torres DO Finalized Date/Time: 01/16/19 15:11:50 Pt. Name: EVELINE PLATT/Sex: 1980 FEMALE Med Rec #: [id number] Physician: Eliezer Torres DO Financial #: [id number] Pt. Type: D Room/Bed: / Admit/Disch: 01/15/19 08:48:00 - 01/15/19 15:57:00 Institution: Case Times MAGR Entry 1 Patient In Room Time 01/15/19 11:36:00 Out Room Time 01/15/19 13:26:00 Anesthesia Start Time 01/15/19 11:37:00 Stop Time 01/15/19 13:23:00 Surgery Start Time 01/15/19 12:03:00 Stop Time 01/15/19 13:20:00 Last Modified By: Bianka Frias RN 01/15/19 13:31:59 Case Attendance MAGR Entry 1 Entry 2 Entry 3 Case Attendee Eliezer Torres DO, Tray Frias RN, Bianka Role Performed Surgeon - Primary Anesthesiologist of Turbinated Bone Grinder Record Time In 01/15/19 11:36:00 01/15/19 11:36:00 01/15/19 11:36:00 Time Out 01/15/19 13:26:00 01/15/19 13:26:00 01/15/19 13:26:00 Procedure Tubal Ligation Tubal Ligation Tubal Ligation Laparoscopic Laparoscopic Laparoscopic Last Modified By: Rodriguez LEE, Bianka Frias RN, Bianka Meyer RN 01/15/19 13:33:51 01/15/19 13:32:06 01/15/19 13:32:06 Entry 4 Entry 5 Entry 6 Case Attendee Zev BALDERAS, Zamzam Bain, Alcira Kidd Role Performed Scrub Personnel Scrub Personnel Coal Inspector Time In 01/15/19 11:36:00 01/15/19 11:36:00 01/15/19 11:36:00 Time Out 01/15/19 13:26:00 01/15/19 13:26:00 01/15/19 13:26:00 Procedure Tubal Ligation Tubal Ligation Tubal Ligation Laparoscopic Laparoscopic Laparoscopic Last Modified By: Rodriguez LEE, Bianka Frias RN, Bianka Meyer RN 01/15/19 13:34:13 01/15/19 13:34:13 01/15/19 13:32:06 Entry 7 Case Attendee Brittany Guthrie RN Role Performed Turbinated Bone Grinder Time In 01/15/19 11:36:00 Time Out 01/15/19 13:26:00 Procedure Tubal Ligation Laparoscopic Last Modified By: Bianka Frias RN 01/15/19 13:34:13 Surgical Procedures MAGR Pre-Care Text: A.20 Verifies operative procedure, surgical site, and laterality Im.150 Develops individualized plan of care Entry 1 Procedure Tubal Ligation Primary Procedure Yes Laparoscopic Primary Surgeon Eliezer Torres DO Surgeon Comment RIGHT SALPINGO-OOPHORECTOMY AND DIAGNOSTIC LAPAROSCOPY Start 01/15/19 12:03:00 Stop 01/15/19 13:20:00 Anesthesia Type General Surgical Service Gynecology Wound Class Clean-Contaminated Technique Details Closure Technique Primary Entire procedure Yes was performed via laparoscope or robotic assistance Last Modified By: Bianka Frias RN 01/15/19 13:32:34 Post-Care Text: O.730 The patient's care is consistent with the individualized perioperative plan of care General Case Data MAGR Pre-Care Text: A.350.1 Classifies surgical wound Entry 1 Case Information OR MAGR OR 01 Case Level Level 4 Wound Class Clean-Contaminated Specialty Gynecology ASA Class 2 Diagnosis Preop Diagnosis PELVIC PAIN Postop Same As Preop Yes Postop Diagnosis PELVIC PAIN Blunt or No Is the procedure No penetrating injury considered occured prior to Emergent/Urgent? the start of the procedure: Last Modified By: Bianka Frias RN 01/15/19 12:16:19 Post-Care Text: O.760 Patient receives consistent and comparable care regardless of the setting Time Out MAGR Entry 1 Time out date/time 01/15/19 12:01:00 All team members Yes have introduced themselves by name and role Surgeon, Yes Surgeon reviews Yes anesthesia, nurse critical or confirm patient, unexpected steps, site, procedure operative duration, anticipated blood loss Anesthesia team Yes Nursing team Yes reviews any reviews sterility patient-specific (including concerns indicator results) and equipment issues/concerns Antibiotic Antibiotic N/A prophylaxis given within the last 60 minutes Is essential N/A imaging displayed? Last Modified By: Bianka Frias RN 01/15/19 12:16:44 Patient Positioning MAGR Pre-Care Text: A.280 Identifies baseline musculoskeletal status Im.40 Positions the patient Im.80 Applies safety devices Entry 1 Procedure Tubal Ligation Body Position Supine Laparoscopic Left Arm Position Tucked and padded at Right Arm Position Extended on padded arm side board Left Leg Position Extended Right Leg Position Extended Feet Uncrossed? Yes Press Points Checked Yes Additional [place] Pad Positioning Device Safety Strap Information Outcome Met (O.80) Yes Last Modified By: Bianka Frias RN 01/15/19 12:19:08 Post-Care Text: E.290 Evaluates musculoskeletal status O.80 Patient is free from signs and symptoms of injury related to positioning Skin Prep MAGR Pre-Care Text: A.30 Verifies allergies Im.270 Performs skin preparation Im.270.1 Implements protective measures to prevent skin and tissue injury due to chemical sources Entry 1 Skin Prep Syntegrity Prep Agents (Im.270) Povidone-Iodine, Prep By Bianka Frias RN, Chlorhexidine Gluconate Brittany Guthrie RN and Alcohol Prep Area (Im.270) Abdomen, Perineum Skin Prep Agent Dry Yes Without Pooling Hair Removal Syntegrity Hair Removal Methods No hair removal performed Outcome Met (O.100) Yes Last Modified By: Bianka Frias RN 01/15/19 12:19:48 Post-Care Text: E.10 Evaluates for signs and symptoms of physical injury to skin and tissue O.100 Patient is free from signs and symptoms of chemical injury Counts Verification MAGR Pre-Care Text: A.20 Verifies operative procedure, surgical site, and laterality A.20.2 Assesses the risk for unintended retained foreign body Im.20 Performs required counts Entry 1 Procedure Tubal Ligation Laparoscopic Counts Verification Initial Counts Items included in Instruments, Sponges, Initial Counts Manual the Initial Count Sharps Method Initial Counts Brittany Guthrie RN, Initial Count Time 01/15/19 11:50:00 Performed By Zev LUMP MAKERGregi Counts Verification Final Counts Items Included in Sponges, Sharps Final Count Method Manual Final Count Final Count Status Correct Final Counts Bianka Frias RN, Performed By Zev LUMP MAKERZamzam Final Count Time 01/15/19 13:10:00 Surgeon notified of Yes final counts status Outcome Met (O.20) Yes Last Modified By: Bianka Frias RN 01/15/19 13:10:52 Post-Care Text: E.50 Evaluates results of the surgical count O.20 Patient is free from unintended retained foreign objects Patient Care Devices MAGR Pre-Care Text: A.200 Assesses risk for normothermia regulation A.40 Verifies presence of prosthetics or corrective devices Im.280 Implements thermoregulation measures Im.60 Uses supplies and equipment within safe parameters Entry 1 Entry 2 Equipment Type FORCED WARM AIR UNIT FLOWTRON CALF CUFF REG Serial ?# Equipment Setting Per factory settings 43 per factory settings deg claude Last Modified By: Bianka Frias RN, RN, Jennifer 01/15/19 12:21:30 01/15/19 12:21:30 Post-Care Text: E.10 Evaluates signs and symptoms of physical injury to skin and tissue O.700 Patient is free from signs and symptoms of injury caused by extraneous objects Cautery MAGR Pre-Care Text: A.240 Assesses baseline skin condition A.40 Verifies presence of prosthetics or corrective devices Im.50 Implements protective measures to prevent injury due to electrical sources Entry 1 ESU Type Electrosurgical Unit Identification [id number] Number ESU Settings Syntegrity Cut Setting 20 Coag Setting 20 Grounding Pad Details Grounding Pad Yes Verified By Bianka Frias RN Needed? Grounding Pad Site Table Grounding Pad Outcome Met (O.10) Yes Last Modified By: Binaka Frias RN 01/15/19 12:22:01 Post-Care Text: E.10 Evaluates for signs and symptoms of physical injury to skin and tissue O.10 Patient is free from signs and symptoms of injury related to thermal sources Cultures and Specimens MAGR Pre-Care Text: A.350 Assesses susceptibility for infection A.10 Confirms patient identity Im.320 Manages culture specimen collection Im.330 Manages specimen handling and disposition Entry 1 Cultures Ordered n/a Specimens Ordered Yes Outcome Met (O.40) Yes Last Modified By: Bianka Frias RN 01/15/19 12:35:43 Post-Care Text: E.40 Evaluates correct processes have been performed for specimen handling and disposition O.40 Patient's specimen(s) is managed in the appropriate manner General Comments: Right tube and ovary Medication Administration MAGR Pre-Care Text: A.210 Identifies physiological status Im.220 Administers prescribed medications Entry 1 Time Administered 01/15/19 12:22:00 Medication 0.25% Marcaine with Epi Route of Admin Incisional/Surgical Site Dose 20 mL Volume 30 mL By Eliezer Torres DO Outcome Met (O.130) Yes Last Modified By: Bianka Frias RN 01/15/19 13:11:03 Post-Care Text: E.20 Evaluates response to medications O.130 Patient receives appropriately administered medication(s) Dressing/Packing MAGR Pre-Care Text: A.350 Assesses susceptibility for infection Im.290 Administer care to wound sites Entry 1 Skin Prep Agent Yes Site Abdomen Removed Prior to Dressing? Dressing Item Details Tape (Im.290) Wound Closure Strip Miscellaneous Sanitary Pad (Im.290) Outcome Met Yes Last Modified By: Bianka Frias RN 01/15/19 12:35:28 Post-Care Text: E.200 Evaluates progress of wound healing O.200 Patient's wound perfusion is consistent with or improved from baseline levels General Comments: Isadora Pants Departure from OR MAGR Entry 1 Present on Depart Oxygen Via Stretcher Post-op Destination PACU Skin DFO Condition Intact Description Condition Warm Description Condition Dry Description Report Given To Paty Anne RN Airway Maintenance Patient Status Stable Oxygen in Use? Yes Airway Device Simple mask Flow Rate 10 L/min Last Modified By: Bianka Frias RN 01/16/19 15:09:31 Case Comments Finalized By: Bianka Frias RN Document Signatures Signed By: Bianka Frias RN 01/16/19 15:11 Normal [facility] Operative Report - Surgeon/P sourav 01-16-2019 Operative Report - Surgeon/Physician DATE OF PROCEDURE: 01/15/19 SURGEON: Eliezer Torrse DO ANESTHESIA: Tray Gill MD (General) PREOPERATIVE DIAGNOSIS: Pelvic pain. POSTOPERATIVE DIAGNOSIS: 1. Pelvic pain. 2. Pending pathology. PROCEDURES: 1. Diagnostic laparoscopy. 2. Operative laparoscopy. 3. Left ovary cystectomy x2. 4. Right salpingo-oophorectomy . 5. Bowel adhesiolysis. 6. Repair of cervix laceration. COMPLICATIONS: None. ESTIMATED BLOOD LOSS: 75 cc. FLUIDS: Approximately 1500 cc of Lactated Ringers. URINE OUTPUT: The patient emptied her bladder just prior to the beginning of the procedure. FINDINGS: The cervix is long, closed and posterior. LAPAROSCOPIC FINDINGS: Slightly enlarged fibroid uterus in the posterior aspect of the fundus; large bowel adhesions to the left side-wall including the omentum; one (1) ectopic yellow left ovarian cyst 3 x 2 cm, one (1) intraovarian cyst 2 x 2 cm simple and fluid filled; right ovary and right tube with a small ovarian cyst. Left tube noted to be tortuously bound to the left ovary with scar tissue; no endometriosis. Upon removal of the single tooth tenaculum, laceration and bleeding noted on the cervix at the site of the removed single tooth and repaired with 2-0 Vicryl suture. PATHOLOGY: Right tube and right ovary sent to pathology. PROCEDURE: The patient was taken to the operating room and placed in the supine position. After adequate general anesthesia, she was placed into the dorsolithotomy position and was prepped and draped in normal sterile fashion. Next, a weighted speculum was placed in the patient's vagina and the anterior aspect of the cervix was grasped with a single tooth tenaculum. A note in the history and physical notes the patient bled from the site of the single tooth tenaculum 1 1/2 years ago from a laparoscopy. Next, an Geiger uterine manipulator was advanced into the cervix to provide a means to manipulate the uterus. The speculum was removed from the vagina. Attention was then turned to the patient's abdomen where a 5 mm skin incision was made in the infraumbilical fold. The Verses needle was then carefully introduced into the peritoneal cavity at a 45 degree angle while tenting the abdominal wall. Intraperitoneal placement was then confirmed by the use of a water-filled syringe and a drop in the intraabdominal pressure with the insufflation of CO2 gas. The trocar and sleeve were then advanced without difficulty into the abdomen where placement was confirmed by the laparoscope. The pneumoperitoneum was obtained with approximately 3 liters of CO2 gas and the 5 mm trocar and sleeve were advanced into the abdomen where placement was confirmed by the laparoscope. A second skin incision was then made 2 cm above the pubic symphysis in the right lower quadrant. The second 5 mm trocar and sleeve were then advanced under direct visualization. A third skin incision was then made 2 cm above the pubic symphysis in the left lower quadrant. The third trocar 10-12 mm and sleeve were then advanced under direct visualization. A survey of the patient's pelvis and abdomen revealed the anatomy as described under the findings. Next, the probe was used to slowly dissect the large bowel and omentum from the left side-wall which was draped up on the side-wall, this was brought down with the peanut and then with the LigaSure gently grasping and coagulating and cutting the bowel and omental adhesions to the left side-wall. Good hemostasis was noted and the bowel was returned to its proper anatomy location. Attention was then turned to the left ovary and tube which had 2 cysts on it; one that was an ectopic cyst coming off of the ovary at the base which was bright yellow, approximately 3 x 2 cm, this was then grasped at the point of attachment, coagulated and cut. A second left ovarian cyst was then noted to be in the ovary which was then grasped with the LigaSure, coagulated and cut noting straw colored fluid descending from the now opened left ovarian cyst. The cyst wall was then grasped, coagulated and cut until the cyst wall was removed. Excellent hemostasis was noted and the tortuous left tube was noted to be scared in different places to the ovary and the decision was made not to attempt adhesiolysis as she is not interested in more children. Attention was then turned to the right ovary and tube which has been causing her right lower pelvic pain for awhile. A cyst was noted in the right ovary approximately 2 cm in diameter. The patient has requested that the right ovary and tube be removed as this has caused her pelvic pain in the past and again currently. Next, the tube and ovary were grasped with the grasper and slowly the LigaSure was used to grasp, coagulate and cut the infundibulopelvic ligament and then the uteroovarian ligament freeing the right ovary and tube which was then placed in an Endo-pouch bag and brought through the third trocar site with ease. The right ovary and tube were given to the nurse to be sent to pathology. Examination of the rest of the abdomen demonstrated good hemostasis and no other pathology needing attention. The instruments were then removed from the patient's abdomen and the incisions were repaired with 2-0 Vicryl at the fascial level and 4-0 Vicryl in a subcuticular manner on the skin. The Geiger uterine manipulator was then removed from the vagina and then the single tooth was removed with bleeding noted from the cervix. The bleeding was coming from the site of the single tooth tenaculum just like it did 1 1/2 years ago on her previous laparoscopy. The decision was made to place 2-0 Vicryl sutures overlying the cervical laceration which demonstrated excellent hemostasis. The patient tolerated the procedure well. Sponge, lap, needle and instrument counts were correct x2. The patient was taken to the recovery room in awake and stable condition. Eliezer Torres DO JOB #: [id number] [Electronically Signed on: 01/21/2019 09:10 EST] Eliezer Torres DO [Verified on: 01/21/2019 09:10 EST] Eliezer Torres DO [Transcribed on: 01/16/2019 10:53 EDT] [facility] Telemetry Stripson 9 Telemetry Strips [id number] [facility] Anesthesia Noteon 01-15-2019 Anesthesia Note Patient: EVELINE PLATT Age: 38 years Sex: FEMALE : 1980 Associated Diagnoses: None Author: Tray Gill MD Preoperative Information Anesthesia history: Patient history: No difficult intubation, No malignant hyperthermia. Family history: No malignant hyperthermia. Review of Systems Respiratory: No shortness of breath, No apnea. Cardiovascular: No known MA, No chest pain. Gastrointestinal: Heartburn. Health Status Allergies: Allergic Reactions (All) No known allergies Current medications: Home Medications (1) Active pantoprazole 40 mg oral delayed release tablet 40 mg = 1 tab(s), PO, BID Problem list (past medical history): All Problems Right ovarian cyst / SNOMED CT 356645898 / Confirmed DDD (degenerative disc disease), lumbosacral / SNOMED CT 551450305 / Confirmed Eye symptom / SNOMED CT 2423420944 / Confirmed GERD (gastroesophageal reflux disease) / SNOMED CT 585199700 / Confirmed Resolved: Chest pain / SNOMED CT 79917017 Resolved: Palpitations / SNOMED CT 457840028 Canceled: DDD (degenerative disc disease), thoracic / SNOMED CT 957848467 Histories Family History: Esophagus Mother Comments: 04/26/2017 16:57 Aicha Wasserman RN esophagus extra long Kidney Brother Comments: 04/26/2017 16:57 Aicha Wasserman RN kidney transplant Thyroid disease Mother Brother Diabetes mellitus type I Father Brain tumor Mother High blood pressure Father Brother Osteoarthritis Mother Coronary heart disease Father Procedure history: Polypectomy of cervix (073530417) on 04/26/2017 at 36 Years. Comments: 01/02/2019 13:19 Haritha Barger RN ovarian cyst. Patient stated laceration under cervix also with repair Dilation and curettage (72072671) on 03/20/2010 at 29 Years. Comments: 04/26/2017 16:00 ANATOLIY MorenoAicha silvestre hemorrhaged 1 hour after procedure was done Dilation and curettage (55668196). Arthroscopy of knee (060637912). Comments: 01/02/2019 13:00 Haritha Barger RN left Social History Electronic Cigarette/Vaping Assessment Electronic Cigarette Use: Never. Alcohol Assessment Use: Never. Tobacco Assessment Never (less than 100 in lifetime) Tobacco Use:. Substance Abuse Assessment Substance use: Never. . Physical Examination VS/Measurements Vital Signs (last 24 hrs) Last Charted Heart Rate Peripheral L 58bpm (JAN 15 09:06) Resp Rate 16 br/min (JAN 15 09:06) SBP H 141mmHg (JAN 15:07) DBP H 95mmHg (JAN 15:07) SpO2 97 % (JAN 15:06) General: Alert and oriented, No acute distress. Airway: Mallampati classification: II (soft palate, fauces, uvula visible). Mouth: Within normal limits. Respiratory: Respirations are non-labored. Cardiovascular: Normal rate. Review / Management Results review: Lab results: 01/15/2019 8:58 EDT U Preg Negative . Laboratory Results Plan [place] [employer]#( A) physical status classification: Class II. Anesthetic Preoperative Plan Anesthesia: General. . Anesthetic plan, risks, benefits, and alternatives discussed with the patient and/or family. Patient verbalized understanding. Family/Guardian present. Informed consent was given. Consent was signed by the patient. [Electronically Signed on: 01/15/2019 12:03 EDT] Tray Gill MD [Verified on: 01/15/2019 12:03 EDT] Tray Gill MD [facility] Inpatient Patient Summaryon 01-15-2019 Inpatient [place] [address] Patient Discharge Instructions Name: PLATTKAYLIN OBANDONA Praveen : 1980 Patient [address]: [address] [place] [address] Primary Care Provider: Name: Kimberly Botello MD After you are discharged if you find you have any questions, please, call [phone] ext [phone] to speak to a nurse. Discharge Diagnosis: Pelvic pain Prescription Information: If you have been given a prescription for narcotics, seek immediate medical attention if you have any difficulty breathing or any sudden status changes such as confusion and sleepiness. If you or anyone you know is experiencing suicidal thoughts, mental health, alcohol and/or drug addiction problems; contact the [facility] 10/10 Crisis Hotline -Text 4HJLD ei 533506. If you received any narcotics, sedation, or any other medication that causes drowsiness for the next 24 hours, unless otherwise directed: ? Do not drive a car. ? Do not operate machinery such as power tools, lawn mowers, drills, sewing machines, or stoves ? Avoid alcoholic beverages and drugs for allergies, nerves, or sleep ? Do not make important personal or business decisions or sign any legal documents [facility] would like to thank you for allowing us to assist you with your healthcare needs. The following includes patient education materials and information regarding your injury/illness. EVELINE PLATT has been given the following list of follow-up instructions, prescriptions, and patient education materials: Follow-up Instructions With: Address: When: Eliezer Torres [address] [place], [place] [id number] Business (1) In 2 weeks 01/29/2019 With: Address: When: Kimberly Botello [address] [place] [address], [address] [place] [id number] Business (1) Medications During the course of your visit, your medication list was updated with the most current information. The details of those changes are reflected below: New Medications Printed Prescriptions acetaminophen-hydroco done ([place] 5 mg-325 mg oral tablet) 1 tab(s) Oral Every 6 hours as needed for pain. may take 1 or 2 tablets not to exceed 8 tablets/day. Refills: 0. ibuprofen (ibuprofen 600 mg oral tablet) 1 tab(s) Oral Every 6 hours as needed as needed for pain. Refills: 0. Medications to Continue That Have Not Changed Other Medications pantoprazole (pantoprazole 40 mg oral delayed release tablet) 1 tab(s) Oral 2 times a day. It is important to always keep an active list of medications available so that you can share with other providers and manage your medications appropriately. As an additional courtesy, we are also providing you with your final active medications list that you can keep with you. acetaminophen-hydroco done ([place] 5 mg-325 mg oral tablet) 1 tab(s) Oral Every 6 hours as needed for pain. may take 1 or 2 tablets not to exceed 8 tablets/day. Refills: 0. ibuprofen (ibuprofen 600 mg oral tablet) 1 tab(s) Oral Every 6 hours as needed as needed for pain. Refills: 0. pantoprazole (pantoprazole 40 mg oral delayed release tablet) 1 tab(s) Oral 2 times a day. Take only the medications listed above. Contact your doctor prior to taking any medications not on this list. Diet & Activity Patient Activity Level: Patient Diet: Patient Activity Restrictions: Comment: Patient education materials, if any, will display below Diagnostic Laparoscopy, Care After Refer to this sheet in the next few weeks. These instructions provide you with information about caring for yourself after your procedure. Your health care provider may also give you more specific instructions. Your treatment has been planned according to current medical practices, but problems sometimes occur. Call your health care provider if you have any problems or questions after your procedure. WHAT TO EXPECT AFTER THE PROCEDURE After your procedure, it is common to have mild discomfort in the throat and abdomen. HOME CARE INSTRUCTIONS ? Take pswr-ygo-vszoztj and prescription medicines only as told by your health care provider. ? Do not drive for 48 hours or while still taking narcotic pain medications ? Walk daily and frequently throughout the day. No heavy exercise until after 2 weeks postoperativley ? Do not take baths, swim, or use a hot tub until your health care provider approves. You may shower daily ? Follow instructions from your health care provider about how to take care of your incision. Make sure you: ? Wash your hands with soap and water before you change your bandage (dressing). If soap and water are not available, use hand log skidder. ? Change your dressings (Band Aids) daily after shower. ? Leave adhesive strips in place until they peel off partially then remove them. ? Check your incision area every day (with just washed or sanitized hands only), for signs of infection. ? More redness, swelling, or pain. ? More fluid or blood. ? Warmth. ? Pus or a bad odor Shoulder pain may occur after surgery occassionaly. Increased walking and pain medicine will help ease this and pain will resolve within 12 hours. SEEK MEDICAL CARE IF: ? You feel light-headed or faintness unrelated to pain medication usage ? You are unable to pass gas or unable to have a bowel movement. ? You feel nauseous or you vomit. ? You develop a rash. ? You have more redness, swelling, or pain around your incisions ? You have more fluid or blood coming from your incisions. ? You have pus or a bad odor coming from your incisions ? You have a fever or chills. SEEK IMMEDIATE MEDICAL CARE IF: ? Your pain is getting worse. ? You have ongoing vomiting. ? The edges of your incision open up. ? You have trouble breathing. ? You have chest pain. This information is not intended to replace advice given to you by your health care provider. Make sure you discuss any questions you have with your health care provider. Document Released: 02/15/2016 Document Reviewed: 02/15/2016 [employer] Patient Education ?2016 [employer] Viruses or Bacteria What?s got you sick? Antibiotics only treat bacterial infections. Viral illnesses cannot be treated with antibiotics. When an antibiotic is not prescribed, ask your healthcare professional for tips on how to relieve symptoms and feel better. Usual Cause Illness Viruses Bacteria Antibiotic Needed Cold/Runny Nose NO Bronchitis/Chest Cold (in otherwise healthy children and adults) NO Whooping Cough Yes Flu NO Strep Throat Yes Sore Throat (except strep) NO Fluid in the middle ear (otitis media with effusion) NO Urinary Tract Infection Yes Antibiotics Aren?t Always the Answer www.cdc.gov/getsmart GET SMART Know When Antibiotics Work U.S. Department of Health and Human Services Centers for Disease Control and Prevention November 2013 [facility] MAGR PACU Recordon 9 MAGR PACU Record MAGR PACU Record Summary Primary Physician: Eliezer Torres DO Finalized Date/Time: 01/15/19 14:27:14 Pt. Name: EVELINE PLATT/Sex: 1980 FEMALE Med Rec #: [id number] Physician: Eliezer Torres DO Financial #: [id number] Pt. Type: D Room/Bed: / Admit/Disch: 01/15/19 08:48:00 - Institution: PACU Case Times MAGR Entry 1 In PACU I 01/15/19 13:26:00 Discharge from PACU 01/15/19 14:15:00 I Last Modified By: Paty Anne RN 01/15/19 14:27:11 General Comments: Patient discharged from PACU using discharge criteria per Dr. Gill- pt to PACU II. Finalized By: Paty Anne RN Document Signatures Signed By: Paty Anne RN 01/15/19 14:27 [facility] MAGR Preoperative Recordon 1 MAGR Preoperative Record MAGR Pre-Op Record Summary Primary Physician: Eliezer Torres DO Finalized Date/Time: 01/15/19 12:44:26 Pt. Name: EVELINE PLATT/Sex: 1980 FEMALE Med Rec #: [id number] Physician: Eliezer Torres DO Financial #: [id number] Pt. Type: D Room/Bed: / Admit/Disch: 01/15/19 08:48:00 - Institution: Pre-Op Case Times MAGR Pre-Care Text: Patient will be optimally prepared for surgery. Patient is free from s/s of injury. Provide information to patient/family related to plan of care. Verify patient allergies. Confirm identity and verify consent before the operative or invasive procedure. Entry 1 Patient Arrival Time 01/15/19 09:00:00 Preop Departure 01/15/19 11:33:00 Last Modified By: Bianka Frias RN 01/15/19 12:44:19 Post-Care Text: Patient is prepared mentally and physically and is ready for surgery. The patient remains free from s/s of injury. Patient/family express understanding of plan of care and participate in decisions affecting his or her perioperrative plan of care. Allergies documented appropriately. Patient identifiers and consent correct. General Comments: Pt arrived ambulatory to psw. Denies SOB,chest pain, fever, sleep apnea, or pacemaker. Finalized By: Bianka Frias RN Document Signatures Signed By: Bianka Frias RN 01/15/19 12:44 [facility] Patient Handouton 01-15-2019 Patient Handout Diagnostic Laparoscopy, Care After Refer to this sheet in the next few weeks. These instructions provide you with information about caring for yourself after your procedure. Your health care provider may also give you more specific instructions. Your treatment has been planned according to current medical practices, but problems sometimes occur. Call your health care provider if you have any problems or questions after your procedure. WHAT TO EXPECT AFTER THE PROCEDURE After your procedure, it is common to have mild discomfort in the throat and abdomen. HOME CARE INSTRUCTIONS ? Take fqsw-hvy-pbgltuq and prescription medicines only as told by your health care provider. ? Do not drive for 48 hours or while still taking narcotic pain medications ? Walk daily and frequently throughout the day. No heavy exercise until after 2 weeks postoperativley ? Do not take baths, swim, or use a hot tub until your health care provider approves. You may shower daily ? Follow instructions from your health care provider about how to take care of your incision. Make sure you: ? Wash your hands with soap and water before you change your bandage (dressing). If soap and water are not available, use hand log skidder. ? Change your dressings (Band Aids) daily after shower. ? Leave adhesive strips in place until they peel off partially then remove them. ? Check your incision area every day (with just washed or sanitized hands only), for signs of infection. ? More redness, swelling, or pain. ? More fluid or blood. ? Warmth. ? Pus or a bad odor Shoulder pain may occur after surgery occassionaly. Increased walking and pain medicine will help ease this and pain will resolve within 12 hours. SEEK MEDICAL CARE IF: ? You feel light-headed or faintness unrelated to pain medication usage ? You are unable to pass gas or unable to have a bowel movement. ? You feel nauseous or you vomit. ? You develop a rash. ? You have more redness, swelling, or pain around your incisions ? You have more fluid or blood coming from your incisions. ? You have pus or a bad odor coming from your incisions ? You have a fever or chills. SEEK IMMEDIATE MEDICAL CARE IF: ? Your pain is getting worse. ? You have ongoing vomiting. ? The edges of your incision open up. ? You have trouble breathing. ? You have chest pain. This information is not intended to replace advice given to you by your health care provider. Make sure you discuss any questions you have with your health care provider. Document Released: 02/15/2016 Document Reviewed: 02/15/2016 [employer] Patient Education ?2015 [employer] Normal [facility] Test Urine 1on U Preg Negative [facility] Comment on above: Performed By: #### [id number] #### [facility] (DEFAULT) [address] [place] [id number] U Preg Internal Control Pass [facility] Comment on above: Performed By: #### [id number] #### [facility] (DEFAULT) [address] [place] [id number] Progress Note - Nurseon - Progress Note - Nurse Pre op phone call complete. Spoke with patient, confirmed time of arrival for 0900 on 01/14/19 [Electronically Signed on: 01/14/2019 10:13 EDT] Haritha Lee RN [Verified on: 01/14/2019 10:13 EDT] Haritha Lee RN [facility] ABORhon 01-13-2019 ABO and Rh group Nom (Bld) Hx Check: Found Anti-A: 0 Anti-B: 0 Anti-D: 4+ DCon: NT A1: 4+ B: 4+ ABORh Interp: O POS [facility] Comment on above: Performed By: #### 2 [id number], [id number], [id number], [id number] #### [facility] (DEFAULT) [address] [place] [address] 73935 ABSC Gelon 01-13-2019 ABSC Gel Negative [facility] Comment on above: Performed By: #### 2 [id number], [id number], [id number], [id number] #### [facility] (DEFAULT) [address] [place] [address] Blood Bank IDon 01-13-2019 Blood Bank ID BBID: [id number] [facility] Comment on above: Performed By: #### 2 [id number], [id number], [id number], [id number] #### [facility] (DEFAULT) [address] [place] [address] 82370 Hgbon 01-13-2019 Hemoglobin (Bld) [Mass/Vol] 13.9 g/dL Normal 11.3-15.9 [facility] Comment on above: Performed By: #### 2 [id number], [id number], [id number], [id number] #### [facility] (DEFAULT) [address] [place], [place] [id number] Coding Summaryon 01-10-2019 Coding Summary CODING DATE: 01/10/2019 [facility] STATUS: Home 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 ADMIT DX: REASON FOR VISIT DX: Z01.812 Encounter for preprocedural laboratory examination FINAL DX: PRINCIPAL: Z01.812 Encounter for preprocedural laboratory examination SECONDARY: R10.2 Pelvic and perineal pain PYMT PROC APC STAT DESCRIPTION DOCTOR NAME DATE NOTE: The code number assigned matches the documented diagnosis and / or procedure in the patient's chart. However, the narrative phrase printed from the coding software may appear abbreviated, or result in slightly different terminology. Coded By: Bianka Silva Date Saved: 01/10/2019 04:33 pm Normal [facility] Provider Orderson 01-07-2019 Provider Orders [id number] Normal [facility] .Auto Diff 1on 01-02-2019 Auto [place] % 9 % Normal 1-12 [facility] Comment on above: Performed By: #### 7 [id number], [id number] #### [facility] (DEFAULT) [address] [place] [address] 40388 Baso Abs# 0.0 x10 Normal 0.0-0.2 [facility] Comment on above: Performed By: #### 7 [id number], [id number] #### [facility] (DEFAULT) [address] [place] [address] 50181 Basophils/100 WBC (Bld) 0.4 % Normal 0.2-2.0 [facility] Comment on above: Performed By: #### 7 [id number], [id number] #### [facility] (DEFAULT) [address] [place] [address] 88102 Eos Abs# 0.1 x10 Normal 0.0-0.4 [facility] Comment on above: Performed By: #### 7 609005, [id number] #### [facility] (DEFAULT) [address] [place] [address] 52754 Eosinophils/100 WBC (Bld) 1.7 % Normal 0.9-4.0 [facility] Comment on above: Performed By: #### 7 [id number], [id number] #### [facility] (DEFAULT) [address] [place] [address] 16311 Lymphocytes (Bld) [#/Vol] 1.4 x10 Normal 1.3-2.9 [facility] Comment on above: Performed By: #### 7 [id number], [id number] #### [facility] (DEFAULT) [address] [place] [address] 79710 Lymphocytes/100 WBC (Bld) 26 % Normal 14-48 [facility] Comment on above: Performed By: #### 7 138827, [id number] #### [facility] (DEFAULT) [address] [place] [address] [place] Abs# 0.5 x10 Normal 0.0-0.8 [facility] Comment on above: Performed By: #### 7 [id number], [id number] #### [facility] (DEFAULT) [address] [place] [address] Neut Abs# 3.3 x10 Normal 1.5-9.2 [facility] Comment on above: Performed By: #### 7 [id number], [id number] #### [facility] (DEFAULT) [address] [place] [address] Neutrophils/100 WBC (Bld) 63 % Normal 44-88 [facility] Comment on above: Performed By: #### 7 [id number], [id number] #### [facility] (DEFAULT) [address] [place] [address] CBC w/ Auto Diffon 9 Erythrocyte distribution width (RBC) [Ratio] 12.6 % Normal 11.5-15.0 [facility] Comment on above: Performed By: #### 7 [id number], [id number] #### [facility] (DEFAULT) [address] [place] [address] Hematocrit (Bld) [Volume fraction] 39.8 % Normal 33.7-40.4 [facility] Comment on above: Performed By: #### 7 303235, [id number] #### [facility] (DEFAULT) [address] [place] [address] Hemoglobin (Bld) [Mass/Vol] 13.2 g/dL Normal 11.3-15.9 [facility] Comment on above: Performed By: #### 7 538057, [id number] #### [facility] (DEFAULT) [address] [place] [address] Man Diff? Auto Normal [facility] Comment on above: Performed By: #### 7 355947, [id number] #### [facility] (DEFAULT) [address] [place] [address] MCH (RBC) [Entitic mass] 31 pg Normal 24-34 [facility] Comment on above: Performed By: #### 7 763996, [id number] #### [facility] (DEFAULT) [address] [place] [address] 11061 MCHC (RBC) [Mass/Vol] 33 g/dL Normal 26-37 [facility] Comment on above: Performed By: #### 7 746113, [id number] #### [facility] (DEFAULT) [address] [place] [address] 18150 MCV (RBC) [Entitic vol] 93 fL Normal 81-100 [facility] Comment on above: Performed By: #### 7 153592, [id number] #### [facility] (DEFAULT) [address] [place] [address] 63507 Platelet mean volume (Bld) [Entitic vol] 11.2 fL High 6.3-10.2 [facility] Comment on above: Performed By: #### 7 [id number], [id number] #### [facility] (DEFAULT) [address] [place] [address] 28850 Platelets (Bld) [#/Vol] 242 x10 Normal 138-427 [facility] Comment on above: Performed By: #### 7 295502, [id number] #### [facility] (DEFAULT) [address] [place] [address] 75952 RBC (Bld) [#/Vol] 4.26 x10 Normal 3.70-5.30 [facility] Comment on above: Performed By: #### 7 174722, [id number] #### [facility] (DEFAULT) [address] [place] [address] 14009 WBC (Bld) [#/Vol] 5.2 x10 Normal 3.5-10.5 [facility] Comment on above: Performed By: #### 7 328302, [id number] #### [facility] (DEFAULT) [address] [place] [address] 73656 BASIC METABOLIC PANELon 09-0 -2018 Calcium [Mass/Vol] 8.8 mg/dL Normal 8.6-10.3 [facility] above: Order Comment: No: D o not add to previous draw Performed By: #### 4 64, 87635 #### [facility] [address] [place] [address], [place] Chloride [Moles/Vol] 108 mmol/L High 98-107 [facility] Comment on above: Order Comment: No: D o not add to previous draw Performed By: #### 4 64, 13667 #### [facility] [address] [place] [address], [place] CO2 [Moles/Vol] 23 mmol/L Normal 21-31 [facility] Comment on above: Order Comment: No: D o not add to previous draw Performed By: #### 4 64, 16992 #### [facility] [address] [place] [address], [place] Creatinine [Mass/Vol] 0.59 mg/dL Low 0.60-1.20 [facility] Comment on above: Order Comment: No: D o not add to previous draw Performed By: #### 4 64, 74262 #### [facility] [address] [place] [address], [place] GFR/1.73 sq M predicted among blacks MDRD (S/P/Bld) [Vol rate/Area] mL/min/{1.73_m2} Normal >60 [facility] Comment on above: Order Comment: No: D o not add to previous draw Performed By: #### 4 64, 30108 #### [facility] [address] [place] [address], [place] GFR/1.73 sq M predicted among non-blacks MDRD (S/P/Bld) [Vol rate/Area] mL/min/{1.73_m2} Normal >60 [facility] Comment on above: Order Comment: No: D o not add to previous draw Performed By: #### 4 64, 49758 #### [facility] [address] [place] [address], [place] Glucose [Mass/Vol] 272 mg/dL High 70-100 [facility] Comment on above: Order Comment: No: D o not add to previous draw Performed By: #### 4 6413, 36139 #### [facility] [address] [place] [address], [place] Potassium [Moles/Vol] 3.6 mmol/L Normal 3.5-5.1 [facility] Comment on above: Order Comment: No: D o not add to previous draw Performed By: #### 4 64, 81682 #### [facility] [address] [place] [address], [facility] Sodium [Moles/Vol] 137 mmol/L Normal 136-145 [facility] Comment on above: Order Comment: No: D o not add to previous draw Performed By: #### 4 64, 75281 #### [facility] [address] [place] [address], [facility] Urea nitrogen [Mass/Vol] 17 mg/dL Normal 7-25 [facility] Comment on above: Order Comment: No: D o not add to previous draw Performed By: #### 4 6413, 40318 #### [facility] [address] CBC COMPLETE BLOOD COUNTon 0 - Erythrocyte distribution width (RBC) [Ratio] 13.0 % Normal 11.5-15.0 [facility] Comment on above: Order Comment: No: D o not add to previous draw Performed By: #### 4 6413, 67113 #### [facility] [address] [place] [address], [facility] Hematocrit (Bld) [Volume fraction] 40.2 % Normal 36.0-45.0 [facility] Comment on above: Order Comment: No: D o not add to previous draw Performed By: #### 4 6413, 62862 #### [facility] [address] Hemoglobin (Bld) [Mass/Vol] 13.1 g/dL Normal 12.0-15.0 [facility] Comment on above: Order Comment: No: D o not add to previous draw Performed By: #### 4 64, 66807 #### [facility] [address] [place] [address], [facility] MCH (RBC) [Entitic mass] 30.7 pg Normal 27.0-33.0 [facility] Comment on above: Order Comment: No: D o not add to previous draw Performed By: #### 4 64, 29421 #### [facility] [address] [facility]. [address] MCHC (RBC) [Mass/Vol] 32.6 g/dL Normal 32.0-35.0 [facility] Comment on above: Order Comment: No: D o not add to previous draw Performed By: #### 4 54, 98342 #### [facility] [address] [facility]. [address] MCV (RBC) [Entitic vol] 94.1 fL Normal 82.0-98.0 [facility] Comment on above: Order Comment: No: D o not add to previous draw Performed By: #### 4 64, 90362 #### [facility] [address] [facility]. [address] Nucleated RBC/100 WBC (Bld) [Ratio] 0 % Normal 0-0 [facility] Comment on above: Order Comment: No: D o not add to previous draw Performed By: #### 4 60, 82573 #### [facility] [address] [facility] [place] [address], [facility] PLAT CNT 256 10*3/uL Normal 150-400 [facility] Comment on above: Order Comment: No: D o not add to previous draw Performed By: #### 4 40, 81746 #### [facility] [address] [place] [address], [facility] RBC (Bld) [#/Vol] 4.27 10*6/uL Normal 3.80-5.00 [facility] Comment on above: Order Comment: No: D o not add to previous draw Performed By: #### 4 6413, 50914 #### [facility] [address] [place] [address], [facility] WBC (Bld) [#/Vol] 16.78 10*3/uL High 4.00-10.60 [facility] Comment on above: Order Comment: No: D o not add to previous draw Performed By: #### 4 6413, 39947 #### [facility] [address] [place] [address], [facility] BASIC METABOLIC PANELon 09-0 -2018 Calcium [Mass/Vol] 9.4 mg/dL Normal 8.6-10.3 [facility] Comment on above: Order Comment: No: D o not add to previous draw Performed By: #### 4 6413, 89032 #### [facility] [address] [place] [address], [place] Chloride [Moles/Vol] 105 mmol/L Normal 98-107 [facility] Comment on above: Order Comment: No: D o not add to previous draw Performed By: #### 4 6413, 20607 #### [facility] [address] [place] [address], [facility] CO2 [Moles/Vol] 22 mmol/L Normal 21-31 [facility] Comment on above: Order Comment: No: D o not add to previous draw Performed By: #### 4 6413, 69453 #### [facility] [address] [place] [address], [place] Creatinine [Mass/Vol] 0.51 mg/dL Low 0.60-1.20 [facility] Comment on above: Order Comment: No: D o not add to previous draw Performed By: #### 4 64, 26172 #### [facility] [address] [place] [address], [place] GFR/1.73 sq M predicted among blacks MDRD (S/P/Bld) [Vol rate/Area] mL/min/{1.73_m2} Normal >60 [facility] Comment on above: Order Comment: No: D o not add to previous draw Performed By: #### 4 64, 75803 #### [facility] [address] [place] [address], [place] GFR/1.73 sq M predicted among non-blacks MDRD (S/P/Bld) [Vol rate/Area] mL/min/{1.73_m2} Normal >60 [facility] Comment on above: Order Comment: No: D o not add to previous draw Performed By: #### 4 64, 41402 #### [facility] [address] [place] [address], [place] Glucose [Mass/Vol] 187 mg/dL High 70-100 [facility]: Order Comment: No: D o not add to previous draw Performed By: #### 4 54, 96548 #### [facility] [address] [place] [address], [place] Potassium [Moles/Vol] 3.6 mmol/L Normal 3.5-5.1 [facility] Comment on above: Order Comment: No: D o not add to previous draw Performed By: #### 4 64, 93904 #### [facility] [address] [place] [address], [place] Sodium [Moles/Vol] 136 mmol/L Normal 136-145 [facility] Comment on above: Order Comment: No: D o not add to previous draw Performed By: #### 4 64, 70178 #### [facility] [address] [place] [address], [place] Urea nitrogen [Mass/Vol] 12 mg/dL Normal 7-25 [facility] Comment on above: Order Comment: No: D o not add to previous draw Performed By: #### 4 6413, 05888 #### [facility] [address] [place] [address], [facility] CBC COMPLETE BLOOD COUNTon 0 11-20-2018 Erythrocyte distribution width (RBC) [Ratio] 12.7 % Normal 11.5-15.0 [facility] Comment on above: Order Comment: No: D o not add to previous draw Performed By: #### 4 64, 18828 #### [facility] [address] [place] [address], [facility] Hematocrit (Bld) [Volume fraction] 40.8 % Normal 36.0-45.0 [facility] Comment on above: Order Comment: No: D o not add to previous draw Performed By: #### 4 64, 16744 #### [facility] [address] [place] [address], [facility] Hemoglobin (Bld) [Mass/Vol] 13.6 g/dL Normal 12.0-15.0 [facility] Comment on above: Order Comment: No: D o not add to previous draw Performed By: #### 4 6413, 71866 #### [facility] [address] [place] [address], [facility] MCH (RBC) [Entitic mass] 30.0 pg Normal 27.0-33.0 [facility] Comment on above: Order Comment: No: D o not add to previous draw Performed By: #### 4 64, 84204 #### [facility] [address] [place] [address], [place] MCHC (RBC) [Mass/Vol] 33.3 g/dL Normal 32.0-35.0 [facility] Comment on above: Order Comment: No: D o not add to previous draw Performed By: #### 4 64, 13704 #### [facility] [address] [place] [address], [facility] MCV (RBC) [Entitic vol] 90.1 fL Normal 82.0-98.0 [facility] Comment on above: Order Comment: No: D o not add to previous draw Performed By: #### 4 6413, 77132 #### [facility] [address] [place] [address], [facility] Nucleated RBC/100 WBC (Bld) [Ratio] 0 % Normal 0-0 [facility] Comment on above: Order Comment: No: D o not add to previous draw Performed By: #### 4 64, 06329 #### [facility] [address] [facility] [place] [address], [facility] PLAT CNT 277 10*3/uL Normal 150-400 [facility] Comment on above: Order Comment: No: D o not add to previous draw Performed By: #### 4 64, 13728 #### [facility] [address] [facility] [place] [address], [facility] RBC (Bld) [#/Vol] 4.53 10*6/uL Normal 3.80-5.00 [facility] Comment on above: Order Comment: No: D o not add to previous draw Performed By: #### 4 6413, 68059 #### [facility] [address] [facility] [place] [address], [facility] WBC (Bld) [#/Vol] 18.13 10*3/uL High 4.00-10.60 [facility] Comment on above: Order Comment: No: D o not add to previous draw Performed By: #### 4 64, 95763 #### [facility] [address] POC GLUCOSE LABon 11-20-2018 Glucose [Mass/Vol] 357 mg/dL High 70-100 [facility] Comment on above: Performed By: #### 4 64, 29785 #### [facility] [address] [place] [address], [place] Glucose [Mass/Vol] 272 mg/dL High 70-100 [facility] Comment on above: Performed By: #### 4 64, 96624 #### [facility] [address] [place] [address], [place] Glucose [Mass/Vol] 201 mg/dL High 70-100 [facility] Comment on above: Performed By: #### 4 64, 66555 #### [facility] [address] [place] [address], [place] Glucose [Mass/Vol] 183 mg/dL High 70-100 [facility] Comment on above: Performed By: #### 4 6413, 43921 #### [facility] [address] [place] [address], [place] BASIC METABOLIC PANELon 09-0 Calcium [Mass/Vol] 8.7 mg/dL Normal 8.6-10.3 [facility] Comment on above: Order Comment: No: D o not add to previous draw Performed By: #### 5 0608 #### [facility] [address] [place] [address], [place] Chloride [Moles/Vol] 106 mmol/L Normal 98-107 [facility] Comment on above: Order Comment: No: D o not add to previous draw Performed By: #### 5 0608 #### [facility] [address] [place] [address], [place] CO2 [Moles/Vol] 25 mmol/L Normal 21-31 [facility] Comment on above: Order Comment: No: D o not add to previous draw Performed By: #### 5 0608 #### [facility] [address] [place] [address], [place] Creatinine [Mass/Vol] 0.62 mg/dL Normal 0.60-1.20 [facility] Comment on above: Order Comment: No: D o not add to previous draw Performed By: #### 5 0608 #### [facility] [address] [place] [address], [place] GFR/1.73 sq M predicted among blacks MDRD (S/P/Bld) [Vol rate/Area] mL/min/{1.73_m2} Normal >60 [facility] Comment on above: Order Comment: No: D o not add to previous draw Performed By: #### 5 0608 #### [facility] [address] [place] [address], [place] GFR/1.73 sq M predicted among non-blacks MDRD (S/P/Bld) [Vol rate/Area] mL/min/{1.73_m2} Normal >60 [facility] Comment on above: Order Comment: No: D o not add to previous draw Performed By: #### 5 0608 #### [facility] [address] [place] [address], [place] Glucose [Mass/Vol] 126 mg/dL High 70-100 [facility]: Order Comment: No: D o not add to previous draw Performed By: #### 5 0608 #### [facility] [address] [place] [address], [place] Potassium [Moles/Vol] 3.7 mmol/L Normal 3.5-5.1 [facility] Comment on above: Order Comment: No: D o not add to previous draw Performed By: #### 5 0608 #### [facility] [address] [place] [address], [place] Sodium [Moles/Vol] 137 mmol/L Normal 136-145 [facility] Comment on above: Order Comment: No: D o not add to previous draw Performed By: #### 5 0608 #### [facility] [address] Urea nitrogen [Mass/Vol] 14 mg/dL Normal 7-25 [facility] Comment on above: Order Comment: No: D o not add to previous draw Performed By: #### 5 0608 #### [facility] [address] [place] [address], [facility] CBC COMPLETE BLOOD COUNTon 0 11-19-2018 Erythrocyte distribution width (RBC) [Ratio] 12.7 % Normal 11.5-15.0 [facility] Comment on above: Order Comment: No: D o not add to previous draw Performed By: #### 5 0608 #### [facility] [address] [facility]. [address] Hematocrit (Bld) [Volume fraction] 40.8 % Normal 36.0-45.0 [facility] Comment on above: Order Comment: No: D o not add to previous draw Performed By: #### 5 0608 #### [facility] [address] [facility] Hemoglobin (Bld) [Mass/Vol] 13.3 g/dL Normal 12.0-15.0 [facility] Comment on above: Order Comment: No: D o not add to previous draw Performed By: #### 5 0608 #### [facility] [address] [place] [address], [facility] MCH (RBC) [Entitic mass] 30.6 pg Normal 27.0-33.0 [facility] Comment on above: Order Comment: No: D o not add to previous draw Performed By: #### 5 0608 #### [facility] [address] [place] [address], [facility] MCHC (RBC) [Mass/Vol] 32.6 g/dL Normal 32.0-35.0 [facility] Comment on above: Order Comment: No: D o not add to previous draw Performed By: #### 5 0608 #### [facility] [address] [place] [address], [facility] MCV (RBC) [Entitic vol] 93.8 fL Normal 82.0-98.0 [facility] Comment on above: Order Comment: No: D o not add to previous draw Performed By: #### 5 0608 #### [facility] [address] [place] [address], [facility] Nucleated RBC/100 WBC (Bld) [Ratio] 0 % Normal 0-0 [facility] Comment on above: Order Comment: No: D o not add to previous draw Performed By: #### 5 0608 #### [facility] [address] [facility] [place] [address], [facility] PLAT CNT 218 10*3/uL Normal 150-400 [facility] Comment on above: Order Comment: No: D o not add to previous draw Performed By: #### 5 0608 #### [facility] [address] [facility] [place] [address], [facility] RBC (Bld) [#/Vol] 4.35 10*6/uL Normal 3.80-5.00 [facility] Comment on above: Order Comment: No: D o not add to previous draw Performed By: #### 5 0608 #### [facility] [address] [facility] [place] [address], [facility] WBC (Bld) [#/Vol] 6.28 10*3/uL Normal 4.00-10.60 [facility] Comment on above: Order Comment: No: D o not add to previous draw Performed By: #### 5 0608 #### [facility] [address] [facility] [place] [address], [facility] POC GLUCOSE LABon 11-19-2018 Glucose [Mass/Vol] 236 mg/dL High 70-100 The [facility] Comment on above: Performed By: #### 5 0608 #### [facility] [address] [place] [address], [facility] Glucose [Mass/Vol] 217 mg/dL High 70-100 The [facility] Comment on above: Performed By: #### 5 0608 #### [facility] [address] [facility] [place] [address], [facility] Glucose [Mass/Vol] 180 mg/dL High 70-100 The [facility] Comment on above: Performed By: #### 5 0608 #### [facility] [address] [facility] [place] [address], [facility] Glucose [Mass/Vol] 110 mg/dL High 70-100 The [facility] Comment on above: Performed By: #### 5 0608 #### [facility] [address] CBC W/DIFFon 11-18-2018 ABS BASOPHILS 0.0 10*3/uL Normal 0.0-0.[address] [facility] Comment on above: Order Comment: Unkno wn Performed By: #### 5 0103 #### [facility] [address] [facility]. [address] ABS IMM GRANS 0.0 10*3/uL Normal 0.0-0.[address] [facility] Comment on above: Order Comment: Unkno wn Performed By: #### 5 0103 #### [facility] [address] [facility] [place] [address], [facility] ABS NEUTROPHILS 3.3 10*3/uL Normal 1.6-7.6 The [facility] Comment on above: Order Comment: Unkno wn Performed By: #### 5 0103 #### [facility] [address] [facility] [place] [address], [facility] Basophils/100 WBC (Bld) 0.4 % Normal 0.0-1.0 The [facility] Comment on above: Order Comment: Unkno wn Performed By: #### 5 0103 #### [facility] [address] [facility] [place] [address], [facility] Eosinophils (Bld) [#/Vol] 0.1 10*3/uL Normal 0.0-0.5 The [facility] Comment on above: Order Comment: Unkno wn Performed By: #### 5 0103 #### [facility] [address] [place] [address], [facility] Eosinophils/100 WBC (Bld) 2.3 % Normal 0.0-6.0 The [facility] Comment on above: Order Comment: Unkno wn Performed By: #### 5 0103 #### [facility] [address] [facility] [place] [address], [facility] Erythrocyte distribution width (RBC) [Ratio] 12.8 % Normal 11.5-15.0 The [facility] Comment on above: Order Comment: Unkno wn Performed By: #### 5 3 #### [facility] [address] [facility] [place] [address], [facility] Hematocrit (Bld) [Volume fraction] 38.6 % Normal 36.0-45.0 The [facility] Comment on above: Order Comment: Unkno wn Performed By: #### 5 0103 #### [facility] [address] [facility] [place] [address], [facility] Hemoglobin (Bld) [Mass/Vol] 12.8 g/dL Normal 12.0-15.0 The [facility] Comment on above: Order Comment: Unkno wn Performed By: #### 5 0103 #### [facility] [address] [facility] [place] [address], [facility] IMMATURE GRANS 0.5 % Normal 0.0-1.[address] [facility] Comment on above: Order Comment: Unkno wn Performed By: #### 5 3 #### [facility] [address] [place] [id number], [facility] Lymphocytes (Bld) [#/Vol] 1.6 10*3/uL Normal 1.2-4.0 The [facility] Comment on above: Order Comment: Unkno wn Performed By: #### 5 0103 #### [facility] [address] [facility] [place] [address], [facility] Lymphocytes/100 WBC (Bld) 28.1 % Normal 20.0-45.0 The [facility] Comment on above: Order Comment: Unkno wn Performed By: #### 5 0103 #### [facility] [address] [facility] MCH (RBC) [Entitic mass] 30.2 pg Normal 27.0-33.0 The [facility] Comment on above: Order Comment: Unkno wn Performed By: #### 5 0103 #### [facility] [address] [facility] MCHC (RBC) [Mass/Vol] 33.2 g/dL Normal 32.0-35.0 The [facility] Comment on above: Order Comment: Unkno wn Performed By: #### 5 3 #### [facility] [address] [place] [address], [facility] MCV (RBC) [Entitic vol] 91.0 fL Normal 82.0-98.0 The [facility] Comment on above: Order Comment: Unkno wn Performed By: #### 5 3 #### [facility] [address] [facility] [place] [address], [facility] Monocytes (Bld) [#/Vol] 0.5 10*3/uL Normal 0.1-1.0 The [facility] Comment on above: Order Comment: Unkno wn Performed By: #### 5 3 #### [facility] [address] [facility] [place] [address], [facility] MONOS 9.0 % Normal 5.0-12.0 The [facility] Comment on above: Order Comment: Unkno wn Performed By: #### 5 3 #### [facility] [address] [facility] [place] [address], [facility] Neutrophils/100 WBC (Bld) 59.7 % Normal 40.0-72.0 The [facility] Comment on above: Order Comment: Unkno wn Performed By: #### 5 0103 #### [facility] [address] [place] [address], [facility] Nucleated RBC/100 WBC (Bld) [Ratio] 0 % Normal 0-0 The [facility] Comment on above: Order Comment: Unkno wn Performed By: #### 5 0103 #### [facility] [address] [place] [address], [facility] PLAT CNT 211 10*3/uL Normal 150-400 [facility] Comment on above: Order Comment: Unkno wn Performed By: #### 5 102 #### [facility] [address] [facility] [place] [address], [facility] RBC (Bld) [#/Vol] 4.24 10*6/uL Normal 3.80-5.00 [facility] Comment on above: Order Comment: Unkno wn Performed By: #### 5 3 #### [facility] [address] [facility] [place] [address], [facility] WBC (Bld) [#/Vol] 5.55 10*3/uL Normal 4.00-10.60 [facility] Comment on above: Order Comment: Unkno wn Performed By: #### 5 3 #### [facility] [address] [facility]. [address] COMP METABOLIC PANELon 11-18 Albumin [Mass/Vol] 3.7 g/dL Normal 3.5-5.7 The [facility] Comment on above: Order Comment: Unkno wn Performed By: #### 0 0121 #### [facility] [address] [place] [address], [facility] ALKALINE PHOSPH 64 IU/L Normal 34-104 The [facility] Comment on above: Order Comment: Unkno wn Performed By: #### 0 0121 #### [facility] [address] [place] [address], [place] ALT [Catalytic activity/Vol] 22 U/L Normal 7-52 The [facility] Comment on above: Order Comment: Unkno wn Performed By: #### 0 0121 #### [facility] [address] [place] [address], [place] AST [Catalytic activity/Vol] 20 U/L Normal 13-39 The [facility] Comment on above: Order Comment: Unkno wn Performed By: #### 0 0121 #### [facility] [address] [place] [address], [place] Bilirubin [Mass/Vol] 0.3 mg/dL Normal 0.3-1.0 The [facility] Comment on above: Order Comment: Unkno wn Performed By: #### 0 0121 #### [facility] [address] [place] [address], [place] Calcium [Mass/Vol] 8.3 mg/dL Low 8.6-10.3 The [facility] Comment on above: Order Comment: Unkno wn Performed By: #### 0 0121 #### [facility] [address] [place] [address], [place] Chloride [Moles/Vol] 107 mmol/L Normal 98-107 The [facility] Comment on above: Order Comment: Unkno wn Performed By: #### 0 0121 #### [facility] [address] [place] [address], [place] CO2 [Moles/Vol] 22 mmol/L Normal 21-31 The [facility] Comment on above: Order Comment: Unkno wn Performed By: #### 0 0121 #### [facility] [address] [place] [address], [place] Creatinine [Mass/Vol] 0.60 mg/dL Normal 0.60-1.20 The [facility] Comment on above: Order Comment: Unkno wn Performed By: #### 0 0121 #### [facility] [address] [place] [address], [place] GFR/1.73 sq M predicted among blacks MDRD (S/P/Bld) [Vol rate/Area] mL/min/{1.73_m2} Normal >60 The [facility] Comment on above: Order Comment: Unkno wn Performed By: #### 0 0121 #### [facility] [address] [place] [address], [place] GFR/1.73 sq M predicted among non-blacks MDRD (S/P/Bld) [Vol rate/Area] mL/min/{1.73_m2} Normal >60 The [facility] Comment on above: Order Comment: Unkno wn Performed By: #### 0 0121 #### [facility] [address] [place] [address], [place] Glucose [Mass/Vol] 126 mg/dL High 70-100 [facility] on above: Order Comment: Unkno wn Performed By: #### 0 0121 #### [facility] [address] [place] [address], [place] Potassium [Moles/Vol] 3.7 mmol/L Normal 3.5-5.1 The [facility] Comment on above: Order Comment: Unkno wn Performed By: #### 0 0121 #### [facility] [address] [place] [address], [place] Protein [Mass/Vol] 6.6 g/dL Normal 6.0-8.3 [facility]: Order Comment: Unkno wn Performed By: #### 0 0121 #### [facility] [address] [place] [address], [place] Sodium [Moles/Vol] 135 mmol/L Low 136-145 [facility] Comment on above: Order Comment: Unkno wn Performed By: #### 0 0121 #### [facility] [address] [facility] [place] [address], [facility] Urea nitrogen [Mass/Vol] 10 mg/dL Normal 7-25 The [facility] Comment on above: Order Comment: Unkno wn Performed By: #### 0 0121 #### [facility] [address] [place] [address], [facility] HEMOGLOBIN A1Con 11-18-2018 HbA1c (Bld) [Mass fraction] 103 mg/dL Normal 70-126 The [facility] Comment on above: Order Comment: No: D o not add to previous draw Performed By: #### 4 6413, 50410 #### [facility] [address] [place] [address], [facility] HbA1c (Bld) [Mass fraction] 5.2 % Normal 4.0-6.0 The [facility] Comment on above: Order Comment: No: D o not add to previous draw Performed By: #### 4 6413, [address]2333 #### [facility] [address] [place] [address], [facility] MRI FACE ORBIT NECK W WO CON TRASTon 11-18-2018 MRI FACE ORBIT NECK W WO CONTRAST [facility] Department of Radiology [address] [place] [id number] Patient Name: EVELINE PLATT : 1980 Sex: F Age: Race: White Pt. Location: [id number] Patient Status: I Ordered Date: 11/18/2018 1:50:00 PM Completed Date: 11/18/2018 03:01 PM Requesting Provider: WILD A[place]IN Attending Provider: CRISTINA RAMIREZ Report Copy To: Signs & Symptoms: Visual Changes History: See Comments Comments: Other, Optic neuritis. Only need MRI eye/Orbits Exam: MRI FACE ORBIT NECK W WO CONTRAST MRI FACE ORBIT NECK W WO CONTRAST 11/18/2018 3:01 PM EDT SIGNS AND SYMPTOMS: Visual Changes TECHNOLOGIST COMMENTS: ? optic neuritis/MS brain w/wo done 11/17 QUESTIONS PER RADIOLOGIST: Other, Optic neuritis. Only need MRI eye/Orbits PROTOCOL: The following pulse sequences were utilized when imaging the brain and orbits: sagittal T1, diffusion weighted imaging, axial T2 FLAIR, coronal T2 fat-sat (orbits), coronal T1 pre (orbits), axial T1 pre (orbits). Post contrast imaging obtained in coronal T1 (orbits), axial T1 (orbits), and axial T1. CONTRAST: Contrast: DOTAREM, 20 milliliter, Intravenous COMPARISON: MRI brain November 17, 2018.. FINDINGS: The globes, extraocular muscles, optic nerves, optic chiasm, and retrobulbar fat are normal. No evidence of intraorbital mass or fluid collection. The orbital apex is within normal limits. The paranasal sinuses are within normal limits. The visualized brain parenchyma is normal. There is no evidence of focal enhancing lesion. Incidental note of a right choroidal fissure cyst. IMPRESSION: Normal MRI of orbits with and without contrast. Approved by:Melissa Blankenship on 11/18/2018 9:33 PM EDT. I, Lisbeth Guzman, have reviewed the images and report and concur with these findings. Electronically signed by:Lisbeth Guzman. Transcribed by: [email or web address], User Resident: MELISSA BLANKENSHIP Electronically Signed by: LISBETH GUZMAN @ 11/19/2018 08:37 AM I personally read this/these film(s) with this resident Normal The [facility] Comment on above: Order Comment: No: D o not add to previous draw POC GLUCOSE LABon 11-18-2018 Glucose [Mass/Vol] 150 mg/dL High 70-100 The [facility] Comment on above: Performed By: #### 5 0608 #### [facility] [address] [place] [address], [place] Glucose [Mass/Vol] 103 mg/dL High 70-100 The [facility] Comment on above: Performed By: #### 8 5499 #### [facility] [address] [place] [address], [place] BASIC METABOLIC PANELon 10-20 Calcium [Mass/Vol] 8.8 mg/dL Normal 8.6-10.3 The [facility] Comment on above: Order Comment: No: D o not add to previous draw Performed By: #### 4 6413, 95129 #### [facility] [address] [place] [address], [place] Chloride [Moles/Vol] 105 mmol/L Normal 98-107 The [facility] Comment on above: Order Comment: No: D o not add to previous draw Performed By: #### 4 6413, 41916 #### [facility] [address] [place] [address], [place] CO2 [Moles/Vol] 26 mmol/L Normal 21-31 The [facility] Comment on above: Order Comment: No: D o not add to previous draw Performed By: #### 4 6413, 56696 #### [facility] [address] [place] [address], [place] Creatinine [Mass/Vol] 0.71 mg/dL Normal 0.60-1.20 The [facility] Comment on above: Order Comment: No: D o not add to previous draw Performed By: #### 4 6413, 57026 #### [facility] [address] [place] [address], [place] GFR/1.73 sq M predicted among blacks MDRD (S/P/Bld) [Vol rate/Area] mL/min/{1.73_m2} Normal >60 The [facility] Comment on above: Order Comment: No: D o not add to previous draw Performed By: #### 4 64, 13367 #### [facility] [address] [place] [address], [place] GFR/1.73 sq M predicted among non-blacks MDRD (S/P/Bld) [Vol rate/Area] mL/min/{1.73_m2} Normal >60 The [facility] Comment on above: Order Comment: No: D o not add to previous draw Performed By: #### 4 64, 23575 #### [facility] [address] [place] [address], [place] Glucose [Mass/Vol] 90 mg/dL Normal 70-100 The [facility] Comment on above: Order Comment: No: D o not add to previous draw Performed By: #### 4 39, 99688 #### [facility] [address] [place] [address], [place] Potassium [Moles/Vol] 3.6 mmol/L Normal 3.5-5.1 The [facility] Comment on above: Order Comment: No: D o not add to previous draw Performed By: #### 4 44, 00024 #### [facility] [address] [place] [address], [place] Sodium [Moles/Vol] 138 mmol/L Normal 136-145 The [facility] Comment on above: Order Comment: No: D o not add to previous draw Performed By: #### 4 13, 37840 #### [facility] [address] [place] [address], [place] Urea nitrogen [Mass/Vol] 10 mg/dL Normal 7-25 The [facility] Comment on above: Order Comment: No: D o not add to previous draw Performed By: #### 4 6413, 07899 #### [facility] [address] CBC COMPLETE BLOOD COUNTon 11-17-2018 Erythrocyte distribution width (RBC) [Ratio] 12.8 % Normal 11.5-15.0 The [facility] Comment on above: Order Comment: No: D o not add to previous draw Performed By: #### 5 0608 #### [facility] [address] Hematocrit (Bld) [Volume fraction] 40.1 % Normal 36.0-45.0 The [facility] Comment on above: Order Comment: No: D o not add to previous draw Performed By: #### 5 0608 #### [facility] [address] Hemoglobin (Bld) [Mass/Vol] 13.1 g/dL Normal 12.0-15.0 The [facility] Comment on above: Order Comment: No: D o not add to previous draw Performed By: #### 5 0608 #### [facility] [address] [facility] [place] [address], [facility] MCH (RBC) [Entitic mass] 30.5 pg Normal 27.0-33.0 The [facility] Comment on above: Order Comment: No: D o not add to previous draw Performed By: #### 5 0608 #### [facility] [address] [facility] [place] [address], [facility] MCHC (RBC) [Mass/Vol] 32.7 g/dL Normal 32.0-35.0 The [facility] Comment on above: Order Comment: No: D o not add to previous draw Performed By: #### 5 0608 #### [facility] [address] [place] [address], [facility] MCV (RBC) [Entitic vol] 93.3 fL Normal 82.0-98.0 The [facility] Comment on above: Order Comment: No: D o not add to previous draw Performed By: #### 5 0608 #### [facility] [address] [facility] [place] [address], [facility] Nucleated RBC/100 WBC (Bld) [Ratio] 0 % Normal 0-0 The [facility] Comment on above: Order Comment: No: D o not add to previous draw Performed By: #### 5 0608 #### [facility] [address] [facility] [place] [address], [facility] PLAT CNT 225 10*3/uL Normal 150-400 The [facility] Comment on above: Order Comment: No: D o not add to previous draw Performed By: #### 5 0608 #### [facility] [address] [place] [address], [facility] RBC (Bld) [#/Vol] 4.30 10*6/uL Normal 3.80-5.00 [facility] Comment on above: Order Comment: No: D o not add to previous draw Performed By: #### 5 0608 #### [place] [address], [facility] WBC (Bld) [#/Vol] 5.88 10*3/uL Normal 4.00-10.60 [facility] Comment on above: Order Comment: No: D o not add to previous draw Performed By: #### 5 0608 #### [place] [address], [facility] CTA HEADon 11-17-2018 CTA HEAD [facility] Department of Radiology [address] [place] [address] Patient Name: EVELINE PLATT : 1980 Sex: F Age: Race: White Pt. Location: [id number] Patient Status: I Ordered Date: 11/17/2018 11:30:00 AM Completed Date: 11/17/2018 02:18 PM Requesting Provider: CRISTINA RAMIREZ Attending Provider: CRISTINA RAMIREZ Report Copy To: Signs & Symptoms: Stroke(CVA) History: See Comments Comments: R/O CVA Exam: CTA HEAD CTA NECK, CTA HEAD 11/17/2018 2:18 PM EDT SIGNS AND SYMPTOMS: Carotid Stenosis TECHNOLOGIST COMMENTS: sudden blindness in left eye QUESTION FOR THE RADIOLOGIST: PROTOCOL: Axial CT angiography images were obtained with IV contrast. CONTRAST: Contrast: OMNIPAQUE 350 (LOCM), 100 milliliter, Intravenous TECHNIQUE: Multi-detector CT angiography axial slices of the head and neck were obtained before and during intravenous administration of IV contrast material. Sagittal, coronal, and 3-D reconstructions were performed and viewed on a separate workstation. Appropriate CT dose lowering techniques were utilized. COMPARISON: None FINDINGS: Noncontrast head CT: There is no shift of the midline structures, acute intracranial bleeding, mass effects, or evidence of acute ischemia. The ventricular system is normal in size. The brainstem and the cerebellum are unremarkable. The visualized intraorbital contents, the visualized paranasal sinuses, and the visualized soft tissue in the infratemporal spaces show no abnormality. The osseous structures in the skull base and the calvarium show no acute abnormality. CTA Head: There are normal anterior and middle cerebral arteries. The anterior communicating artery is patent. The posterior communicating arteries are present. Calcification adjacent to the left supraclinoid ICA without evidence of stenosis. The superior cerebellar arteries, posterior inferior cerebellar arteries, and the basilar artery are within normal limits. The posterior cerebral arteries are unremarkable. The deep venous system and dural venous systems appear to be patent. CTA Neck: There is a normal 3-vessel arch. The subclavian arteries are normal in course and caliber. The vertebral arteries are normal in course and caliber arising from the subclavian arteries. The common and internal carotid arteries are normal in course and caliber. No bony abnormalities are appreciated. The lung apices are within normal limits. IMPRESSION: No acute intracranial pathology. No evidence of focal stenosis, aneurysmal dilatation, dissection or occlusion. Approved by:Whitney Fonseca on 11/17/2018 4:27 PM EDT. I, Brendan Mario, have reviewed the images and report and concur with these findings. Electronically signed by:Brendan Mario. Transcribed by: [email or web address], User Resident: WHITNEY GLEASON Electronically Signed by: BRENDAN MARIO @ 11/18/2018 07:23 PM I personally read this/these film(s) with this resident Normal [facility] Comment on above: Order Comment: No: D o not add to previous draw CTA NECKon 11-17-2018 CTA NECK [facility] Department of Radiology [address] [place] [id number] Patient Name: EVELINE PLATT : 1980 Sex: F Age: Race: White Pt. Location: [id number] Patient Status: I Ordered Date: 11/17/2018 11:30:00 AM Completed Date: 11/17/2018 02:18 PM Requesting Provider: CRISTINA RAMIREZ Attending Provider: CRISTINA RAMIREZ Report Copy To: Signs & Symptoms: Carotid Stenosis History: See Comments Comments: Exam: CTA NECK CTA NECK, CTA HEAD 11/17/2018 2:18 PM EDT SIGNS AND SYMPTOMS: Carotid Stenosis TECHNOLOGIST COMMENTS: sudden blindness in left eye QUESTION FOR THE RADIOLOGIST: PROTOCOL: Axial CT angiography images were obtained with IV contrast. CONTRAST: Contrast: OMNIPAQUE 350 (LOCM), 100 milliliter, Intravenous TECHNIQUE: Multi-detector CT angiography axial slices of the head and neck were obtained before and during intravenous administration of IV contrast material. Sagittal, coronal, and 3-D reconstructions were performed and viewed on a separate workstation. Appropriate CT dose lowering techniques were utilized. COMPARISON: None FINDINGS: Noncontrast head CT: There is no shift of the midline structures, acute intracranial bleeding, mass effects, or evidence of acute ischemia. The ventricular system is normal in size. The brainstem and the cerebellum are unremarkable. The visualized intraorbital contents, the visualized paranasal sinuses, and the visualized soft tissue in the infratemporal spaces show no abnormality. The osseous structures in the skull base and the calvarium show no acute abnormality. CTA Head: There are normal anterior and middle cerebral arteries. The anterior communicating artery is patent. The posterior communicating arteries are present. Calcification adjacent to the left supraclinoid ICA without evidence of stenosis. The superior cerebellar arteries, posterior inferior cerebellar arteries, and the basilar artery are within normal limits. The posterior cerebral arteries are unremarkable. The deep venous system and dural venous systems appear to be patent. CTA Neck: There is a normal 3-vessel arch. The subclavian arteries are normal in course and caliber. The vertebral arteries are normal in course and caliber arising from the subclavian arteries. The common and internal carotid arteries are normal in course and caliber. No bony abnormalities are appreciated. The lung apices are within normal limits. IMPRESSION: No acute intracranial pathology. No evidence of focal stenosis, aneurysmal dilatation, dissection or occlusion. Approved by:Whitney Fonseca on 11/17/2018 4:27 PM EDT. I, Brendan Mario, have reviewed the images and report and concur with these findings. Electronically signed by:Brendan Mario. Transcribed by: [email or web address], User Resident: WHITNEY GLEASON Electronically Signed by: BRENDAN MARIO @ 11/18/2018 07:23 PM I personally read this/these film(s) with this resident Normal [facility] History and Physicalon 11-17 History and Physical MR#: [id number] [facility] Pt. Name: Eveline Platt Admitted: 11/17/2018 Date of : 1980 Attending Physician: Jennifer Kincaid MD Room #: 5CD [id number] Discharge Date: HISTORY AND PHYSICAL CHIEF COMPLAINT: Left eye vision loss. HISTORY OF PRESENT ILLNESS: This is a 38-year-old female without significant past medical history except for GERD, on PPI, who presented with the above complaint. The patient states that she was at work this morning when she suddenly starts having left eye pain followed by loss of vision. She denies any associated headache, focal weakness; however, she did have numbness in the left side of the face earlier, which resolved later on. She denied any dysphagia, diplopia, or dysarthria. She denied any facial droop. She has no history of prior strokes. She denied history of smoking, alcohol, or illicit drug use. She has no history of diabetes, hypertension, or dyslipidemia. She does have strong family history of strokes and diabetes. She has no history of MIs or peripheral arterial disease. She has no history of seizures or migraine. She only takes Protonix for GERD. PAST MEDICAL HISTORY: GERD. PAST SURGICAL HISTORY: Ovarian cyst removal. FAMILY HISTORY: Positive for strokes and diabetes and hypertension. ALLERGIES: None. 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: CONSTITUTIONAL: No fever, weight loss, or fatigue. HEENT: Left eye, vision loss. No headache. No sore throat. No runny nose. No hearing loss. RESPIRATORY: Denied any cough, phlegm, wheezing, sputum, or history of pneumonia. CARDIAC: Denied any chest pain, palpitation, presyncope, syncope, edema, or claudication. GENITOURINARY: Denied any dysuria, hematuria, or vaginal discharge. MUSCULOSKELETAL: Denied back pain, edema, or joint pain or swelling. SKIN: Denied any skin rash or skin changes. NEUROLOGY: As per HPI. PSYCHIATRY: Denied any history of depression or anxiety. ENDOCRINE: Denied any history of diabetes. No polyuria or polydipsia. PHYSICAL EXAMINATION: VITAL SIGNS: Blood pressure 151/83, heart rate 66, respirations 16, temperature 98.2, O2 saturation 100% on room air. GENERAL: Well developed, well nourished, not in acute distress, pleasant. HEENT: Pupils are equal and reactive to light. There is decrease in the visual acuity in the left eye with pain elicited on right lateral gaze. No pallor. No icterus. Tympanic membranes are clear. Ear canals are patent. No otitis tenderness. NECK: Supple. No JVD. No carotid bruit. No lymphadenopathy. CHEST: No chest deformities. No skin changes. LUNGS: Both sides move equally with respiration. Anterior and posterior lung baker are clear. No rales, wheezes, or crackles. HEART: Normal S1, S2. No gallop, rub, or murmur. ABDOMEN: Soft and nontender. No rebound or guarding. Normal bowel sounds. GENITOURINARY: No CVA tenderness. EXTREMITIES: No clubbing or cyanosis. No edema. Pulses are 2+ throughout. NEUROLOGY: Muscle strength 5/5 throughout. Normal sensation. No cerebellar signs. Cranial nerve examination, normal except for decreased vision in the left eye. SKIN: No rash. No edema. No skin changes. MUSCULOSKELETAL: No back pain. No kyphoscoliosis. Full range of movement. No back tenderness. PSYCHIATRY: Pleasant, alert, oriented. Not agitated, not suicidal. DIAGNOSTIC TESTS: Labs on admitting are pending. ASSESSMENT AND PLAN: The patient being admitted to the Med/Surg. 1. Acute left eye vision loss. The patient has no focal neurological deficit except for decreased visual acuity in the left eye. Neurology was contacted and recommended admission with possible central retinal vein occlusion. Recommendation to get MRI of brain, I ordered. We will continue neuro checks every 4 hours and start her on aspirin 81 mg p.o. daily. She will need hemoglobin A1c and lipids profile as well. Follow up with Neurology. 2. Hypertension. Blood pressure on admission was 151/83. The patient is not on any antihypertensive medication and does not carry the diagnosis of hypertension. We will hold off on any anti hypertension in the acute phase of the vision loss. Continue to monitor blood pressure to decide about the need to start antihypertensive medications. 3. Deep venous thrombosis prophylaxis. Enoxaparin 40 mg daily. 4. GI prophylaxis, on PPI. 5. Code status, full. 6. Disposition, home. Plan of care was discussed with the patient. Electronically Signed by: Jennifer Kincaid MD 11/17/2018 12:36 P Jennifer Kincaid MD Date Dict: 11/17/2018/03:04 [place]/Jennifer Kincaid MD Date Trans: 11/17/2018 05:13 A/jp [id number] Normal [facility] LIPID PROFILEon 11-17-2018 Cholesterol [Mass/Vol] 133 mg/dL Normal 120-200 [facility] Comment on above: Order Comment: No: D o not add to previous draw Result Comment: CHOL ESTEROL REFERENCE RANGE: 20 YEARS AND OLDER CARDIOVASCULAR RISK Less than 200 mg/dl Low Risk 200 to 239 mg/dl Borderline Risk 240 mg/dl and greater High Risk Performed By: #### 4 6413, [id number] #### [facility] [address] [place] [address], [place] Cholesterol in HDL [Mass/Vol] 39 mg/dL Normal 23-92 [facility] Comment on above: Order Comment: No: D o not add to previous draw Result Comment: Slig ht variation in normal range could be due to gender and/or age. HDL CHOLESTEROL REFERENCE RANGE: 20 years and older Cardiovascular Risk > or =60 mg/dL Desirable 40 TO 59 mg/dL Low Risk <40 mg/dL High Risk Performed By: #### 4 6413, [id number] #### [facility] [address] [place] [address], [place] Cholesterol in LDL [Mass/Vol] 52 mg/dL Normal 0-130 [facility] Comment on above: Order Comment: No: D o not add to previous draw Result Comment: LDL IS A CALCULATION LDL IS ONLY VALID IF THE TRIG IS LESS THAN 400. Performed By: #### 4 6413, [id number] #### [facility] [address] [place] [address], [place] Cholesterol.total/Ch olesterol in HDL [Mass ratio] 3.4 {ratio} Normal 0.0-4.5 [facility] Comment on above: Order Comment: No: D o not add to previous draw Performed By: #### 4 6413, [id number] #### [facility] [address] [facility]. [address] NON-HDL CHOLESTEROL 94 mg/dL Normal [facility] Comment on above: Order Comment: No: D o not add to previous draw Performed By: #### 4 6413, [address]6537 #### [facility] [address] [place], [place] [id number] [place] [address] Triglyceride [Mass/Vol] 208 mg/dL High 40-149 [facility] Comment on above: Order Comment: No: D o not add to previous draw Result Comment: TRIG LYCERIDE REFERENCE RANGE: 20 YEARS AND OLDER CARDIOVASCULAR RISK LESS THAN 150 mg/dl LOW RISK 150 TO 199 mg/dl BORDERLINE RISK 200 mg/dl AND GREATER HIGH RISK Performed By: #### 4 6413, [address]172 #### [facility] [address] VLDL CHOL 42 mg/dL High 0-40 [facility] Comment on above: Order Comment: No: D o not add to previous draw Performed By: #### 4 6413, 32730 #### [facility] [address] MRI BRAIN W WO CONTRASTon MRI BRAIN W WO CONTRAST [facility] Department of Radiology [address] [place] [id number] Patient Name: EVELINE PLATT : 1980 Sex: F Age: Race: White Pt. Location: [id number] Patient Status: I Ordered Date: 11/17/2018 2:50:00 AM Completed Date: 11/17/2018 02:16 PM Requesting Provider: JENNIFER OLIVIER Attending Provider: CRISTINA RAMIREZ Report Copy To: Signs & Symptoms: Visual Changes History: See Comments Comments: R/O CVA Exam: MRI BRAIN W WO CONTRAST MRI BRAIN W WO CONTRAST 11/17/2018 2:16 PM EDT SIGN AND SYMPTOMS: Visual Changes TECHNOLOGIST COMMENTS: visual changes in left eye QUESTION FOR RADIOLOGIST: R/O CVA PROTOCOL: The following pulse sequences were utilized when imaging the brain: sagittal T1, diffusion weighted imaging, axial T2 FLAIR, axial T2 fat-sat, axial T1, axial GRE. Post contrast imaging in sagittal 3D and axial 3D. CONTRAST: Contrast: DOTAREM, 20 milliliter, Intravenous COMPARISON: CTA same day FINDINGS: Extra axial spaces: Age appropriate. Hemorrhage: None. Ventricular system: Within normal limits. Basal cisterns: Within normal limits and not effaced. Cerebral parenchyma: Normal in signal. Midline shift: None.. Cerebellum: Within normal limits. Brainstem: Within normal limits. OTHER: Calvarium: Normal marrow signal. Vascular system: Satisfactory flow voids within the anterior and posterior circulation. Visualized Paranasal sinuses: Within normal limits. Visualized Orbits: Within normal limits. Visualized upper cervical spine: Within normal limits. Sella and skull base: Within normal limits. IMPRESSION: No evidence of acute ischemia. No acute intracranial abnormality. Approved by:Whitney Fonseca on 11/17/2018 6:08 PM EDT. I, Brendan Mario, have reviewed the images and report and concur with these findings. Electronically signed by:Brendan Mario. Transcribed by: [email or web address], User Resident: WHITNEY GLEASON Electronically Signed by: BRENDAN MARIO @ 11/18/2018 07:22 PM I personally read this/these film(s) with this resident Normal [facility] Comment on above: Order Comment: R/O C VA SEDIMENTATION RATEon 019 SED RATE 13 mm/hr Normal 0-20 [facility] Comment on above: Order Comment: No: D o not add to previous draw Performed By: #### 5 [id number] #### [facility] [address] [place] [address], [facility] TOX PANEL URINEon 11-17-2018 50 THC Negative Normal NEGATIVE [facility] Comment on above: Order Comment: No: D o not add to previous draw Performed By: #### 3 1079 #### [facility] [address] [place] [address], [facility] BARBITURATES Negative Normal NEGATIVE The [facility] Comment on above: Order Comment: No: D o not add to previous draw Performed By: #### 3 1079 #### [facility] [address] [place] [address], [facility] Benzodiazepines Ql (U) Negative Normal NEGATIVE [facility] Comment on above: Order Comment: No: D o not add to previous draw Performed By: #### 3 1079 #### [facility] [address] [place] [address], [facility] Cocaine Ql (U) Negative Normal NEGATIVE The [facility] Comment on above: Order Comment: No: D o not add to previous draw Performed By: #### 3 1079 #### [facility] [address] [place] [address], [facility] Methadone Ql (U) Negative Normal NEGATIVE The [facility] Comment on above: Order Comment: No: D o not add to previous draw Performed By: #### 3 1079 #### [facility] [address] [place] [address], [place] MONO AMPHET Negative Normal NEGATIVE The [facility] Comment on above: Order Comment: No: D o not add to previous draw Performed By: #### 3 1079 #### [facility] [address] [place] [address], [place] Opiates Ql (U) Negative Normal NEGATIVE The [facility] Comment on above: Order Comment: No: D o not add to previous draw Performed By: #### 3 1079 #### [facility] [address] [place] [address], [place] Phencyclidine Ql (U) Negative Normal NEGATIVE [facility] Comment on above: Order Comment: No: D o not add to previous draw Performed By: #### 3 1079 #### [facility] [address] [place] [address], [facility] PROPOXYPHENE Negative Normal NEGATIVE The [facility] Comment on above: Order Comment: No: D o not add to previous draw Performed By: #### 3 1079 #### [facility] [address] [place] [address], [facility] TRICYCLICS Negative Normal NEGATIVE [facility] Comment on above: Order Comment: No: D o not add to previous draw Performed By: #### 3 1079 #### [facility] [address] [place] [address], [facility] Vital Signs Date Time Vital Sign Value Performing Clinician Faci lity 12-11-2023 15:49-0400 Body height 154.94 cm [facility] 12-11-2023 15:49-0400 Body mass index (BMI) [Ratio] 39.1 kg/m2 [facility] 12-11-2023 15:49-0400 Body weight 93.89 kg [facility] 12-11-2023 15:49-0400 Diastolic blood pressure 89 mm[Hg] [facility] 12-11-2023 15:49-0400 Heart rate 67 /min [facility] 12-11-2023 15:49-0400 Systolic blood pressure 146 mm[Hg] [facility] Encounters Encounter Date Encounter Type Care Provider Facility Start: 12-11-2023 Patient encounter status [facility] Start: 12-11-2023 End: 12-11-2023 ambulatory [facility] Work Phone: Start: 12-11-2023 End: 12-11-2023 Encounter for general adult medical examination without abnormal findings [facility] Start: 12-11-2023 End: 12-11-2023 Patient encounter procedure [facility] Work Phone: Start: 02-07-2023 End: 02-07-2023 ambulatory Kimberly Botello Other [employer] Other Start: 02-07-2023 Telephone encounter Kimberly Botello [facility] Start: 01-23-2023 (Televisit) Televisit Kimberly Botello [facility] Start: 01-23-2023 End: 01-23-2023 ambulatory Kimberly Botello Other [employer] Other Start: 05-10-2022 End: 05-10-[address] MELLISSA BAILEY . Facility:[facility] Start: 05-21-2021 End: 05-22-[address] KIMBERLY BOTELLO Facility:[facility] Start: 03-25-2021 Adult health examination Kimberly Botello Other [employer] Other Start: 03-25-2021 Problem, abnormal examination Kimberly Botello Other [employer] Other Start: 05-07-2020 End: 05-07-2020 Patient encounter procedure External Provider [facility] Start: 05-07-2020 Results Only External Provider [facility] Start: 11-17-2018 End: 11-21-2018 Evaluation and management of inpatient CRISTINA PAT Facility:[facility] Procedures Date Procedure Procedure Detail Performing Clinician Start: 05-07-2020 End: 05-07-2020 EXTERNAL LAB External Provider Screening for malign ant neoplasm of breast Kimberly Botello Other Plan of Treatment Date Care Activity Detail Author Patient Education Back Flexion S trengthening Exercises [facility] Work Phone: XR Lumbar spine 2 or 3 Views [facility] Immunizations Immunization Date Immunization Notes Care Provider Hayden [email or web address] 01-10-2018 influenza virus vaccine, split virus (incl. purified surface antigen) Kimberly Botello Other [employer] [facility] [employer] Other 01-10-2018 influenza virus vaccine, unspecified formulation [facility] Payers Date Payer Category Payer Unknown MMO MMO [employer] [id number] 2020-Present PPO [id number] 1980 Unknown [id number] 1980 Unknown [id number] 1980 Unknown [id number] 1959 Unknown [id number] Private Health Insurance [employer] [id number] Private Health Insurance [facility] [id number] Self-pay Self Pay [id number] Social History Date Type Detail Facility Tobacco smoking status NHIS Unknown if ever smoked [facility] Start: 1980 Sex Assigned At Not on file [facility] Sex Assigned At Sex Assigned At [facility] [facility] Other Start: 05-30-2023 Tobacco smoking status NHIS Never smoked tobacco (finding) [facility] Start: 1980 Sex Assigned At Female [facility] NEGATED: Highlighted row [facility] Evaluation note 01-23-2023 Note Date & Type Note Facility 01-23-2023 Evaluation note Encounter Date Diagnosis Assessment Notes Jan, Chronic sinusitis, unspecified (ICD-10 - J32.9) >15 min spent in discussion/d ecision making. Sinus infections can be triggered by a secondary infection from a viral URI or even seasonal allergies. Take medications as directed. Use saline nasal spray prior to presciption nasal spray. Take medications as directed, and complete all doses of medication even if you start to feel better. Patient advised to follow up with PCP if symptoms persist or worsen. Patient verbalized understanding and agreement with treatment plan. Jan, Other specified bacterial agents as the cause of diseases classified elsewhere (ICD-10 - B96.89) [employer] Other Progress note 07-20-2020 Note Date & Type Note Facility 07-20-2020 Note HNO ID: [id number] Author: Cat Fofana RD Service: ? Author Type: Registered Dietitian Type: Progress Notes Filed: 07/20/2020 12:50 PM Note Text: 12:01- Called pt at this time for scheduled phone appointment. No answer, left message for patient with provider contact information. Cat Fofana RDN, GHADA [facility] Clinical Note 07-20-2020 Note Date & Type Note Facility 07-20-2020 Note Education (NUTRSA) EVELINE PLATT ([id number]) 1980 F Date Time Provider Department 07/20/20 12:00 PM CAT FOFANA Reason for Visit: Nutrition Telephone [2014] Progress Notes: Cat Fofana RD 07/20/2020 12:50 PM Signed 12:01- Called pt at this time for scheduled phone appointment. No answer, left message for patient with provider contact information. Cat Fofana RDN, LD During your visit today, we recorded the following information about you: Allergies As of Date: 07/20/2020 (No Known Allergies) Date Reviewed: 06/29/2020 Reviewed by: Cat Fofana - Fully Assessed Prescriptions as of 07/20/2020 Sig: METOPROLOL SUCCINATE ER 50 MG* Take 50 mg by mouth once kenneth* PANTOPRAZOLE 40 MG TABLET,DEL* Take 40 mg by mouth. IRON ORAL Take by mouth. DEXILANT 60 MG CAPSULE, DELAY* Take by mouth. METOPROLOL TARTRATE 50 MG TAB* Take 50 mg by mouth once kenneth* NORGESTIMATE 0.25 MG-ETHINYL * Take 1 tablet by mouth once d* FLONASE NASAL Use in the nose. MECLIZINE 25 MG TABLET Take 25 mg by mouth three reza* CETIRIZINE 5 MG-PSEUDOEPHEDRI* Take 1 tablet by mouth twice * Encounter Status:Closed by CAT FOFANA on 07/20/20 [facility] Clinical Note 06-29-2020 Note Date & Type Note Facility 06-29-2020 Note Education (NUTRSA) EVELINE PLATT ([id number]) 1980 F Date Time Provider Department 06/29/20 12:00 PM CAT FOFANA) NUTR Reason for Visit: Nutrition Telephone [2014] Progress Notes: Cat Fofana RD 06/30/2020 9:24 AM Signed Nutrition Therapy Initial Assessment/Telephone This visit was performed via telehealth due to the COVID-19 epidemic as an effort to protect patients and minimize exposure. Consent from patient received to conduct visit via telehealth. This Team Access Model visit is a phone encounter. It required patient-provider interaction for the medical decision making as documented below. RECOMMENDED MALNUTRITION DIAGNOSIS: NO MALNUTRITION IDENTIFIED Patient states reason for visit: obesity, information to learn healthy eating. Start: 12:00 PM Diety History: always on the go Breakfast: skips Lunch: light snack if I can get it in Granola bar Dinner: heavier meal mashed pot, chix OR pork chop OR hamburger, 4 course- meat/pot/corn/non-starchy vegetable Snack(s): evening snacker- [id number] something sweet Fluids: 3-24 oz water during the day. At home 48oz water. Nutrition Diagnosis: Problem, Etiology and Signs/Symptoms: Overweight/Obesity related to excessive energy intake as evidenced by BMI 39.2. Nutrition Intervention: -aim for 3 meals + snack if needed -use [employer] plate for dinner -ok to use meal replacement for lunch -ok to have snack of 1 CHO + Pro for breakfast -continue drinking at least 64 oz non-caffeine containing beverages -begin label reading -ok to use gama such as Wander (f. [employer]) or CannaBuild to take caloric intake if desired -call PCP regarding symptoms (increased thirst, blurry vision) for guidance if labs should be checked. -provider contact information provided. Nutrition Monitoring AND Evaluation: 1. PO Intake 2. Wt status 3. Biochemical Markers 4. Plan of care HEIGHT/WEIGHT/BSA HEIGHT WEIGHT 05/13/2020 5' 1 204 lb 3.2 oz 06/24/2020 5' .984 207 lb 6.4 oz Per HPI: Updated Visit, June 24, 2020: Eveline is 39 years old and returns in follow-up with improvement in her iron deficiency and anemia. She is still taking iron tablets Monday through Monday skipping the weekends and doing well with this plan. Her hemoglobin continues to improve and is now 13.1. She has no microcytic findings on her hemogram. However she notes being very fatigued. She reports that she does not sleep well due to back pain. We discussed potential causes of this including the potential for sleep apnea as well as the association with back pain and overall body weight. I kindly encouraged her to reexamine her nutritional intake and modify this as exercise is very difficult for her. She was interested in a nutrition consult. I have confirmed and edited as necessary the PHI obtained by Dr. Blake Patel on 06/24/2020 and all reflect current status. Anthropometrics: Height: Last 1 Encounter Ht Readings: Date: Ht: 06/24/2020 154.9 cm (5' 0.98 ) Current weight: Last 1 Encounter Wt Readings: Date: Wt: 06/24/2020 94.1 kg (207 lb 6.4 oz) Estimated body mass index is 39.21 kg/m? as calculated from the following: Height as of 06/24/20: 154.9 cm (5' 0.98 ). Weight as of 06/24/20: 94.1 kg (207 lb 6.4 oz). Resting Metabolic Rate: 1545 Weight Loss: Dosing Weight: 94.1 kg Estimated kilocalorie needs: 1854 kilocalories determined by Craven-St. Jeor x 1.2 Estimated protein needs: 75-94 grams determined by 0.8-1.0 g/kg Dosing weight Estimated fluid needs: 2352 milliliters based on 25 mL/kg Educational materials provided: Sent to pt via mail- Heart Healthy Plate, 1500 Calorie Carb Controlled Sample Menus, Healthy Meal Options, Lean Protein Foods, Understanding Food Labels, Snack Ideas, Meal Planning Sheet READINESS TO LEARN Cognitive ability: Alert and oriented Motivation to learn: Eager Family support: Unable to assess - Family not present Instruction provided to: Patient Patient learns best by: Individual Instruction Factors affecting learning: None Physical limitations affecting learning: None Pt presents for phone consult regarding nutrition counseling for obesity. 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 States she is on the go most of the day. She does have a hx of GDM and today c/o being thirsty and having blurred vision. Additionally, states she feels spacy in the evenings. Discussed these symptoms and hx of GDM with pt, advised her to contact her PCP to see about having her GLU and/or A1C checked. Pt verbalized understanding. Discussed today with pt weight loss basics and recommended efforts towards an established meal pattern in attempt to reduce the overall size of dinner and evening snacking. Recommended balanced meals. Recommended decreasing portion si (more content not included)... [facility] Progress note 06-29-2020 Note Date & Type Note Facility 06-29-2020 Note HNO ID: [id number] Author: Cat Fofana Service: ? Author Type: Registered Dietitian Type: Progress Notes Filed: 06/30/2020 9:24 AM Note Text: Nutrition Therapy Initial Assessment/Telephone This visit was performed via telehealth due to the COVID-19 epidemic as an effort to protect patients and minimize exposure. Consent from patient received to conduct visit via telehealth. This Team Access Model visit is a phone encounter. It required patient-provider interaction for the medical decision making as documented below. RECOMMENDED MALNUTRITION DIAGNOSIS: NO MALNUTRITION IDENTIFIED Patient states reason for visit: obesity, information to learn healthy eating. Start: 12:00 PM Diety History: always on the go Breakfast: skips Lunch: light snack if I can get it in Granola bar Dinner: heavier meal mashed pot, chix OR pork chop OR hamburger, 4 course- meat/pot/corn/non-starchy vegetable Snack(s): evening snacker- [id number] something sweet Fluids: 3-24 oz water during the day. At home 48oz water. Nutrition Diagnosis: Problem, Etiology and Signs/Symptoms: Overweight/Obesity related to excessive energy intake as evidenced by BMI 39.2. Nutrition Intervention: -aim for 3 meals + snack if needed -use Tomfoolery plate for dinner -ok to use meal replacement for lunch -ok to have snack of 1 CHO + Pro for breakfast -continue drinking at least 64 oz non-caffeine containing beverages -begin label reading -ok to use gama such as Wander (f. [employer]ongoPal) or CannaBuild to take caloric intake if desired -call PCP regarding symptoms (increased thirst, blurry vision) for guidance if labs should be checked. -provider contact information provided. Nutrition Monitoring AND Evaluation: 1. PO Intake 2. Wt status 3. Biochemical Markers 4. Plan of care HEIGHT/WEIGHT/BSA HEIGHT WEIGHT 05/13/2020 5' 1 204 lb 3.2 oz 06/24/2020 5' .984 207 lb 6.4 oz Per HPI: Updated Visit, June 24, 2020: Eveline is 39 years old and returns in follow-up with improvement in her iron deficiency and anemia. She is still taking iron tablets Monday through Monday skipping the weekends and doing well with this plan. Her hemoglobin continues to improve and is now 13.1. She has no microcytic findings on her hemogram. However she notes being very fatigued. She reports that she does not sleep well due to back pain. We discussed potential causes of this including the potential for sleep apnea as well as the association with back pain and overall body weight. I kindly encouraged her to reexamine her nutritional intake and modify this as exercise is very difficult for her. She was interested in a nutrition consult. I have confirmed and edited as necessary the PHI obtained by Dr. Blake Patel on 06/24/2020 and all reflect current status. Anthropometrics: Height: Last 1 Encounter Ht Readings: Date: Ht: 06/24/2020 154.9 cm (5' 0.98 ) Current weight: Last 1 Encounter Wt Readings: Date: Wt: 06/24/2020 94.1 kg (207 lb 6.4 oz) Estimated body mass index is 39.21 kg/m? as calculated from the following: Height as of 06/24/20: 154.9 cm (5' 0.98 ). Weight as of 06/24/20: 94.1 kg (207 lb 6.4 oz). Resting Metabolic Rate: 1545 Weight Loss: Dosing Weight: 94.1 kg Estimated kilocalorie needs: 1854 kilocalories determined by Craven-St. Jeor x 1.2 Estimated protein needs: 75-94 grams determined by 0.8-1.0 g/kg Dosing weight Estimated fluid needs: 2352 milliliters based on 25 mL/kg Educational materials provided: Sent to pt via mail- Heart Healthy Plate, 1500 Calorie Carb Controlled Sample Menus, Healthy Meal Options, Lean Protein Foods, Understanding Food Labels, Snack Ideas, Meal Planning Sheet READINESS TO LEARN Cognitive ability: Alert and oriented Motivation to learn: Eager Family support: Unable to assess - Family not present Instruction provided to: Patient Patient learns best by: Individual Instruction Factors affecting learning: None Physical limitations affecting learning: None Pt presents for phone consult regarding nutrition counseling for obesity. 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 States she is on the go most of the day. She does have a hx of GDM and today c/o being thirsty and having blurred vision. Additionally, states she feels spacy in the evenings. Discussed these symptoms and hx of GDM with pt, advised her to contact her PCP to see about having her GLU and/or A1C checked. Pt verbalized understanding. Discussed today with pt weight loss basics and recommended efforts towards an established meal pattern in attempt to reduce the overall size of dinner and evening snacking. Recommended balanced meals. Recommended decreasing portion sizes of dinner, utilizing my plate method and decreasing sweets. Recommended increasing consumption of lean proteins, complex carbohydrates, fruits, vegetables, and (more content not included)... [facility] Progress note 06-24-2020 Note Date & Type Note Facility 06-24-2020 Note HNO ID: [id number] Author: Blake Patel Service: ? Author Type: Physician Type: Progress Notes Filed: 06/25/2020 6:20 AM Note Text: NAME: Eveline Platt CLINIC NO.: [id number] DATE OF SERVICE: June 24, 2020 Some elements in this clinic note that are critical to medical decision making have been carefully reviewed and included from a prior clinic note dated: May 13, 2020 Referring Provider: Kimberly Botello Additional Clinicians involved in Eveline Platt's care: CC: anemia ASSESSMENT: 39 yo woman with chronic anemia requiring transfusions of blood as well as IV iron approximately 2 years ago (2018) now re-presenting with anemia and iron defficiency that is responding to oral iron at outset. I will schedule her for iron but do not anticipate her needing it. PLAN: 1. Repeat labs in 12 weeks 2. RTC in 12 weeks IV iron after 3. Take iron tabs M-F skip weekends HPI: Updated Visit, June 24, 2020: Eveline is 39 years old and returns in follow-up with improvement in her iron deficiency and anemia. She is still taking iron tablets Monday through Monday skipping the weekends and doing well with this plan. Her hemoglobin continues to improve and is now 13.1. She has no microcytic findings on her hemogram. However she notes being very fatigued. She reports that she does not sleep well due to back pain. We discussed potential causes of this including the potential for sleep apnea as well as the association with back pain and overall body weight. I kindly encouraged her to reexamine her nutritional intake and modify this as exercise is very difficult for her. She was interested in a nutrition consult. Initial Visit, May 13, 2020: Eveline Platt presents today Hematology and Oncology evaluation. She is a 39 year old female who presents with mild anemia and iron deficiency. In early March 2020, she had a hgb around 11.5 g/dL and was started on iron. She stopped iron approximately 1 month later but then developed purplish patches on her thighs and was seen in the ER where she was again identified as havinf anemia and low ferritin of 9. She presents for my recommendations. She also reports having needed transfusions approximately 2 years ago as well as iron infusions. She had pica at the time. She doesn't with this current presentation. She also endorses heavy menses. 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 Per HPI and otherwise negative by full review of organ systems. ECOG PERFORMANCE STATUS: 0 PHYSICAL EXAMINATION: Vitals: BP 135/68 Pulse 98 Temp (Src) 97.4 (Temporal) Resp 16 Ht 5' .984 (1.55m) Wt 207 lb 6.4 oz (94.1kg) SpO2 98% LMP 05/25/2020 BMI 39.21 kg/(m2). Body surface area is 2.01 meters squared. Exam limited to gross visualization where appropriate due to COVID-19. Gen.: This is an age-appropriate patient in no acute distress. Head: Appears atraumatic with no visible lesions. Eyes: Pupils equally round and reactive to light, extraocular muscles are intact. Neck: Supple. Mouth: Mucous membranes appeared to be moist. Respiratory: Appears to be respiring comfortably. Neurologic: Nonfocal to gross visualization. Alert and oriented ?3. Psychiatric: No evidence of inappropriate anxiety or depression. Skin: Visible areas of skin without rash, lesions, wounds or petechiae. ALLERGIES: ALLERGIES No Known Allergies MEDICATIONS: metoprolol succinate ER (TOPROL XL) 50 mg 24 hr tablet Take 50 mg by mouth once daily. pantoprazole DR (PROTONIX) 40 mg tablet Take 40 mg by mouth. ferrous sulfate (IRON ORAL) Take by mouth. Dexlansoprazole (DEXILANT) 60 mg CpDM Take by mouth. metoprolol tartrate, short acting, (LOPRESSOR) 50 mg tablet Take 50 mg by mouth once daily. norgestimate 0.25 mg-ethinyl estradiol 35 mcg (SPRINTEC) 0.25-35 mg-mcg per tablet Take 1 tablet by mouth once daily. fluticasone propionate (FLONASE NASAL) Use in the nose. meclizine (ANTIVERT) 25 mg tab Take 25 mg by mouth three times daily. cetirizine-pseudoephedrine (CETIRI-D) 5-120 mg per tablet Take 1 tablet by mouth twice daily. LABORATORY VALUES: WBC (k/uL) Date Value 06/24/2020 6.98 RBC (m/uL) Date Value 06/24/2020 4.45 Hemoglobin (g/dL) Date Value 06/24/2020 13.1 Hematocrit (%) Date Value 06/24/2020 40.6 MCV (fL) Date Value 06/24/2020 91.2 MCH (pG) Date Value 06/24/2020 29.4 MCHC (g/dL) Date Value 06/24/2020 32.3 RDW-CV (%) Date Value 06/24/2020 13.2 Platelet Count (k/uL) Date Value 06/24/2020 235 MPV (fL) Date Value 06/24/2020 11.5 Glucose (mg/dL) Date Value 06/24/2020 101 (H) BUN (mg/dL) Date Value 06/24/2020 10 Creatinine (mg/dL) Date Value 06/24/2020 0.64 Sodium (mmol/L) Date Value 06/24/2020 138 Potassium (mmol/L) Date Value 06/24/2020 3.9 Chloride (mmol/L) Date Value 06/24/2020 106 (H) CO2 (mmol/L) Date Value 06/24/2020 25 Protein, Total (g/ (more content not included)... [facility] Progress note 05-13-2020 Note Date & Type Note Facility 05-13-2020 Note HNO ID: [id number] Author: Blake Patel Service: ? Author Type: Physician Type: Progress Notes Filed: 05/13/2020 12:21 PM Note Text: NAME: Eveline Platt NO.: [id number] DATE OF SERVICE: May 13, 2020 Referring Provider: Kimberly Botello Consultation requested by Dr. Botello for an opinion regarding Ms. Eveline Platt, and my final recommendations will be communicated back to the requesting physician by way of shared medical record or letter via US mail. Additional Clinicians involved in Eveline Platt's care: CC: anemia ASSESSMENT: 39 yo woman with chronic anemia requiring transfusions of blood as well as IV iron approximately 2 years ago (2018) now re-presenting with anemia and iron defficiency that is responding to oral iron at outset. I will schedule her for iron but do not anticipate her needing it. She knows to call me if she has issues with oral iron. PLAN: 1. Labs today 2. Repeat in 6 weeks 3. RTC in 6 weeks IV iron after 4. Take iron tabs M-F skip weekends HPI: Initial Visit, May 13, 2020: Eveline Platt presents today Hematology and Oncology evaluation. She is a 39 year old female who presents with mild anemia and iron deficiency. In early March 2020, she had a hgb around 11.5 g/dL and was started on iron. She stopped iron approximately 1 month later but then developed purplish patches on her thighs and was seen in the ER where she was again identified as havinf anemia and low ferritin of 9. She presents for my recommendations. She also reports having needed transfusions approximately 2 years ago as well as iron infusions. She had pica at the time. She doesn't with this current presentation. She also endorses heavy menses. 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 Per HPI and otherwise negative by full review of organ systems. ECOG PERFORMANCE STATUS: 0 PHYSICAL EXAMINATION: Vitals: BP 142/87 Pulse 79 Temp (Src) 97.3 (Temporal) Resp 18 Ht 5' 1 (1.55m) Wt 204 lb 3.2 oz (92.6kg) SpO2 99% BMI 38.60 kg/(m2). Body surface area is 2 meters squared. Exam limited to gross visualization where appropriate due to COVID-19. Gen.: This is an age-appropriate patient in no acute distress. Head: Appears atraumatic with no visible lesions. Eyes: Pupils equally round and reactive to light, extraocular muscles are intact. Neck: Supple. Mouth: Mucous membranes appeared to be moist. Respiratory: Appears to be respiring comfortably. Neurologic: Nonfocal to gross visualization. Alert and oriented ?3. Psychiatric: No evidence of inappropriate anxiety or depression. Skin: Visible areas of skin without rash, lesions, wounds or petechiae. ALLERGIES: ALLERGIES No Known Allergies MEDICATIONS: ferrous sulfate (IRON ORAL) Take by mouth. Dexlansoprazole (DEXILANT) 60 mg CpDM Take by mouth. metoprolol tartrate, short acting, (LOPRESSOR) 50 mg tablet Take 50 mg by mouth once daily. norgestimate 0.25 mg-ethinyl estradiol 35 mcg (SPRINTEC) 0.25-35 mg-mcg per tablet Take 1 tablet by mouth once daily. fluticasone propionate (FLONASE NASAL) Use in the nose. meclizine (ANTIVERT) 25 mg tab Take 25 mg by mouth three times daily. cetirizine-pseudoephedrine (CETIRI-D) 5-120 mg per tablet Take 1 tablet by mouth twice daily. LABORATORY VALUES: WBC (k/uL) Date Value 05/13/2020 5.77 RBC (m/uL) Date Value 05/13/2020 4.30 Hemoglobin (g/dL) Date Value 05/13/2020 12.7 Hematocrit (%) Date Value 05/13/2020 38.8 MCV (fL) Date Value 05/13/2020 90.2 MCH (pG) Date Value 05/13/2020 29.5 MCHC (g/dL) Date Value 05/13/2020 32.7 RDW-CV (%) Date Value 05/13/2020 13.4 Platelet Count (k/uL) Date Value 05/13/2020 240 MPV (fL) Date Value 05/13/2020 11.2 DIAGNOSIS: (D50.0) Iron deficiency anemia due to chronic blood loss (primary encounter diagnosis) Plan: CBC + DIFF (FOR REMOTE [facility] USE), COMP METABOLIC PANEL, FERRITIN BLD, IRON + TIBC PAST MEDICAL HISTORY Diagnosis Date - Benign paroxysmal positional vertigo - Gastritis - GERD (gastroesophageal reflux disease) - Hiatal hernia - HTN (hypertension) - Iron deficiency anemia - Mass of submandibular region - Myalgia - Tachycardia PAST SURGICAL HISTORY Procedure Laterality Date - SALPINGECTOMY OR OOPHERECTOMY-ECTOPIC Right Social History Tobacco Use - Smoking status: Never Smoker - Smokeless tobacco: Never Used Substance Use Topics - Alcohol use: Not on file - Drug use: Not on file FAMILY HISTORY Problem Relation Age of Onset - Cancer Mother Brain tumor Blake Patel MD, CPE [place], [place] CC: Kimberyl Botello MD (DrC) [address] [facility] [id number] [facility] Evaluation note Note Date & Type Note Facility Evaluation note No Information [facility] Other Evaluation note Note Date & Type Note Facility Evaluation note Diagnosis Onset Date DDD (degenerative disc disease), lumbar acute SI joint arthritis acute Wellness examination acute [facility] Work Phone: History general Narrative - Reported Note Date & Type Note Facility History general Narrative - Reported Type Medical History DDD LUMBAR ARTHRITIS Medical History GERD Medical History BOWEL ADHESIONS Medical History UTERINE AND VAGINAL POLYPS Medical History hypertension Surgical History D&C Surgical History CERVICAL AND UTERINE POLYPS Surgical History OVARIAN CYST/BOWELS RELEASED FO R UTERUS Surgical History oophorectomy Surgical History knee surgery Hospitalization History see above [employer] Other Summary Purpose Family History Relationship Condition Age at Onset Recorded Date/T laurita father Hypertension Unknown Diabetes mellitus Unknown Advance Directives Advance Directive Response Recorded Date/ Time Advance Directives No August 25 0 9:06am Hospital Course Note MR#: [id number] [facility] Pt. Name: Eveline Platt Admitted: 11/17/2018 Discharged: 11/21/2018 Date of : 1980 Physician: Cristina Ramirez MD DISCHARGE SUMMARY date of discharge, November 21, 2018, PRIMARY CARE PHYSICIAN: None. CONSULTING PHYSICIAN: Neurology/Stroke Team. FINAL DIAGNOSES: 1. Left acute visual loss of unclear etiology. Workup including MRI brain. MRI negative for any stroke or any optic or orbital pathology. The patient responded to steroids as well. 2. Essential hypertension. The patient is not on any medications. The patient is instructed to follow up with primary care physician in this regard. Presently, blood pressure is 137. HOSPITAL COURSE: This is a pleasant 38-year-old female, who presented to [facility] on account of left acute visual loss and the patient was brought to the [facility] for further evaluation and management. Has had an extensive evaluation done including ESR, which is normal along (more content not included)... Note [facility] SURGERY Clinical Discharge Summary PERSON INFORMATION Name EVELINE PLATT Age 38 Years 1980 Sex FEMALE Language Bahamian PCP Rosmery ALVA, Kimberly Peñaloza Marital Status Med Service Ambulatory Surgery Acct# Arrival 01/15/2019 08:48:00 Visit Reason SURGERY-RIGHT SALPINGO-OOPHORECTOMY AND DIAGNOSTIC LAPAROSCOPY Acuity LOS 043 00:30 Address: [address] [place] [id number] Comment: PROVIDER INFORMATION VITALS INFORMATION Vital Sign Triage Latest Temp Oral Temp Temporal Temp Intravascular Temp Axillary Temp Rectal 02 Sat 100 % 100 % Respiratory Rate Peripheral Pulse Rate Apical Heart Rate Blood Pressure / 93 mmHg / 81 mmHg Comment: MEDICAL INFORMATION Allergy Info: No known allergies Prescriptions Given: acetaminophen-hydrocodone ([place] 5 mg-325 mg oral tablet) 1 tab(s) Oral Every 6 hours as needed for pain. may take 1 or 2 tablets not to exceed 8 tablets/day. Refills: 0. ibuprofen (ibuprofen 600 mg oral tablet) 1 tab(s) Oral (more content not included)... Note Patient: EVELINE PLATT MR N: [id number] Age: 38 years Sex: FEMALE : 1980 Associated Diagnoses: None Author: Tray Gill MD Postoperative Information Post Operative Note: Post Anesthesia Care Unit. Health Status Allergies: Allergic Reactions (All) No known allergies Physical Examination General: No acute distress. Respiratory: Respirations are non-labored. Review / Management Condition: Stable. Assessment Anesthetic outcome No anesthetic complications noted. Adequate pain relief. No Complaint of nausea and vomiting. Plan Transfer/ Discharge: Patient can be discharged from PACU when criteria met. Condition stable. [Electronically Signed on: 01/15/2019 13:45 EDT] Tray Gill MD [Verified on: 01/15/2019 13:45 EDT] Tray Gill MD Procedure Findings Note Patient: EVELINE PLATT MR N: [id number] Age: 38 years Sex: FEMALE : 1980 Associated Diagnoses: None Author: Tray Gill MD Postoperative Information Post Operative Note: Post Anesthesia Care Unit. Health Status Allergies: Allergic Reactions (All) No known allergies Physical Examination General: No acute distress. Respiratory: Respirations are non-labored. Review / Management Condition: Stable. Assessment Anesthetic outcome No anesthetic complications noted. Adequate pain relief. No Complaint of nausea and vomiting. Plan Transfer/ Discharge: Patient can be discharged from PACU when criteria met. Condition stable. [Electronically Signed on: 01/15/2019 13:45 EDT] Tray Gill MD [Verified on: 01/15/2019 13:45 EDT] Tray Gill MD Chief Complaint and Reason for Visit Chief Complaint Wellness Reason for Visit DDD (degenerative di sc disease), lumbar SI joint arthritis Wellness examination Additional Source Comments INFORMATION SOURCE (unrecogn ized section and content) DATE CREATED AUTHOR 12/10/2018 [facility] DATE CREATED AUTHOR AUTHOR'S ORGANIZ ATION 01/22/2019 [facility] DATE CREATED AUTHOR AUTHOR'S ORGANIZ ATION 04/16/2021 [facility] DATE CREATED AUTHOR AUTHOR'S ORGANIZ ATION 05/13/2022 [facility] Source Comments (unrecognize d section and content) In the event this informatio n is protected by the Federal Confidentiality of Alcohol and Drug Abuse Patient Records regulations: The Federal rules restrict any use of the information to criminally investigate or prosecute any alcohol or drug abuse patient.[facility] Hospital[facility] the event this information is protected by the Federal Confidentiality of Alcohol and Drug Abuse Patient Records regulations: The Federal rules restrict any use of the information to criminally investigate or prosecute any alcohol or drug abuse patient.[facility] Hospital[facility] the event this information is protected by the Federal Confidentiality of Alcohol and Drug Abuse Patient Records regulations: The Federal rules restrict any use of the information to criminally investigate or prosecute any alcohol or drug abuse patient.[facility] Hospital[facility] the event this information is protected by the Federal Confidentiality of Alcohol and Drug Abuse Patient Records regulations: The Federal rules restrict any use of the information to criminally investigate or prosecute any alcohol or drug abuse patient.[facility] REASON FOR VISIT (unrecogniz ed section and content) Cough- [phone] Care Teams (unrecognized sec tion and content) Team Status: Active Member Role Status Dates Kimberly Botello MD Primary Care Provider Active Team Status: Inactive Member Role Status Dates Kimberly Botello MD Primary Care Provide r, Attending Provider Active Start: December 11, 2023 End: December 11, 2023 Goals (unrecognized section and content) Goals may be documented in a n alternate section FOR RECORDS PERTAINING TO PATIENTS WHO ARE OR HAVE BEEN ENROLLED IN A CHEMICAL DEPENDENCY/SUBSTANCEABUSE PROGRAM, SOME INFORMATION MAY BE OMITTED. This clinical summary was aggregated from multiple sources. Caution should be exercised in using it in the provision of clinical care. This summary normalizes information from multiple sources, and as a consequence, information in this document may materially change the coding, format and clinical context of patient data. In addition, data may be omitted in some cases. CLINICAL DECISIONS SHOULD BE BASED ON THE PRIMARY CLINICAL RECORDS. [facility] [place] [facility] provides no warranty or guarantee of the accuracy or completeness of information in this document.
[2024-02-09 03:16] VITALS: BP 121/100; PULSE 83; O2SAT 95; BMI 41.0
--- NOTE | 2024-02-09 03:22 | ED.EPISTAXI1 ---
HPI - Epistaxis General Chief Complaint: Epistaxis Stated Complaint: NOSEBLEED Time Seen by Provider: 02/09/24 03:13 Source: patient Mode of arrival: walk-in Limitations: no limitations History of Present Illness HPI Narrative: 43-year-old female presents for nosebleed. It has been on the right side of her nose and she has had it for the last 8 hours. No injury and no history of taking blood thinners. She has not had problems with nosebleeds in the past. She could not get it to stop so she came in to get it looked at. Related Data Home Medications ?Medication ?Instructions ?Recorded ?Confirmed dexlansoprazole 60 mg 60 mg PO QDAY 12/03/22 12/03/22 capsule,biphase delayed release metoprolol succinate 50 mg 50 mg PO QDAY 12/03/22 02/09/24 tablet,extended release 24 hr Previous Rx's ?Medication ?Instructions ?Recorded amoxicillin 500 mg capsule 500 mg PO TID 3 days #9 caps 02/09/24 Allergies Allergy/AdvReac Type Severity Reaction Status Date / Time No Known Drug Allergies Allergy Verified 02/09/24 03:16 Review of Systems ROS Narrative A ten point review of systems is negative except as noted above. PFSH PFSH Social History Smoking status: Current every day smoker Little interest or pleasure in doing things: not at all Feeling down, depressed, or hopeless: not at all Exam Narrative Exam Narrative: Nurses note and vital signs reviewed and patient is not hypoxic. General: The patient is in no apparent distress. Nasal clamp on her nose when I walk into the room. Skin: Warm, dry, no pallor noted. There is no rash noted. Head: Normocephalic, atraumatic Eye: Normal conjunctiva, no drainage Ears, Nose, Mouth, and Throat: oral mucosa is moist. Nasal clamp in place. Minimal bleeding present. Cardiovascular: Regular Rate and Rhythm Respiratory: Patient is in no distress, no accessory muscle use, lungs are clear to auscultation, no wheezing, rales or rhonchi Back: non-tender GI: Soft and nontender Musculoskeletal: The patient has no evidence of calf tenderness, no pitting edema, symmetrical pulses noted bilaterally Neurological: A&O, normal speech Psychiatric: Cooperative Constitutional Vital Signs, click to edit/add: Last Vital Signs Pulse 83 02/09/24 03:16 Resp 19 02/09/24 03:16 BP 121/100 H 02/09/24 03:16 Pulse Ox 95 02/09/24 03:16 O2 Del Method Room Air 02/09/24 03:16 Course Vital Signs Vital signs: Vital Signs Pulse Rate 83 02/09/24 03:16 Respiratory Rate 19 02/09/24 03:16 Blood Pressure 121/100 H 02/09/24 03:16 Pulse Oximetry 95 02/09/24 03:16 Oxygen Delivery Method Room Air 02/09/24 03:16 Pulse Rate 83 02/09/24 03:16 Respiratory Rate 19 02/09/24 03:16 Blood Pressure 121/100 H 02/09/24 03:16 Pulse Oximetry 95 02/09/24 03:16 Oxygen Delivery Method Room Air 02/09/24 03:16 MDM - Epistaxis MDM Narrative Medical decision making narrative: Packing has been placed and it is to be removed in 3 days. She was instructed to follow-up with ENT and was given name and phone number. She will call today to make an appointment to be seen on February 11 for removal. If she is unable to be seen on that date she will come back here to have it removed. Treatment diagnosis and follow-up were discussed with the patient. Differential Diagnosis Differential diagnosis: Likely anterior epistaxis and posterior epistaxis Discharge Plan Discharge Chief Complaint: Epistaxis Clinical Impression: Epistaxis Patient Disposition: Home, Self-Care Time of Disposition Decision: 04:02 Condition: Good Mode of Transportation: Private Vehicle Prescriptions / Home Meds: New amoxicillin 500 mg capsule 500 mg PO TID 3 Days Qty: 9 0RF No Action dexlansoprazole 60 mg capsule,biphase delayed releas 60 mg PO QDAY metoprolol succinate 50 mg tablet extended release 24 hr 50 mg PO QDAY Print Language: [place] Instructions: Nosebleed (ED) Additional Instructions: Nasal packing to be removed on February 11. Call today for an appointment to see the ear nose and throat doctor. If unable to see him on that day come back here for removal. Referrals: Kimberly Boles MD [Primary Care Provider] - 1 week Michelle Ahumada MD [Physician] - 02/12/24 Procedures ED Procedure Instructions Procedures Procedures: The following procedure was performed by me. 5.5 cm anterior inflatable nasal packing applied to the right nares and inflated. This has caused good hemostasis. No complications and she tolerated the procedure well. Complete hemostasis was achieved.
--- NOTE | 2024-02-09 04:16 | PC.NURSE ---
i gave verbal and paper discharge along with 1 Rx to this patient and she voices yes to understanding these. at time of discharge this patient voices no concerns and shows no signs of distress
== END 2024-02-09 04:10 | disposition home or self-care (01) ==
PROVIDERS: Emergency Provider Emergency Medicine; PCP Family Medicine
DX: R04.0 Epistaxis (principal); F17.200 Nicotine dependence, unspecified, uncomplicated
CPT/HCPCS: 30901; 99281; 99283

== ENCOUNTER 2024-02-09 08:11 | Emergency (ER) | payer OTHER, SELFPAY ==
[2024-02-09 08:15] VITALS: BP 167/108; PULSE 80; TEMP 36.6; O2SAT 98; BMI 41.0
--- NOTE | 2024-02-09 08:20 | ED.EPISTAXI1 ---
HPI - Epistaxis General Chief Complaint: Epistaxis Stated Complaint: EPITAXIS Time Seen by Provider: 02/09/24 08:20 Source: patient Mode of arrival: walk-in Limitations: no limitations History of Present Illness HPI Narrative: The patient is coming to us after she has almost 4 hours ago had a Rhino Rocket placed in the right nostril after she started bleeding, there was no history of trauma and the patient does not take any anticoagulant The patient complaining that she is tearing a lot from her right eye and there is a lot of pressure in the right nostril causing a lot of pain Related Data Home Medications ?Medication ?Instructions ?Recorded ?Confirmed dexlansoprazole 60 mg 60 mg PO QDAY 12/03/22 12/03/22 capsule,biphase delayed release metoprolol succinate 50 mg 50 mg PO QDAY 12/03/22 02/09/24 tablet,extended release 24 hr Previous Rx's ?Medication ?Instructions ?Recorded amoxicillin 500 mg capsule 500 mg PO TID 3 days #9 caps 02/09/24 Allergies Allergy/AdvReac Type Severity Reaction Status Date / Time No Known Drug Allergies Allergy Verified 02/09/24 08:15 Review of Systems ROS Status of ROS 10 or more systems reviewed and unremarkable except as noted in history and below PFSH PFSH Social History Smoking status: Current every day smoker Little interest or pleasure in doing things: not at all Feeling down, depressed, or hopeless: not at all Exam Narrative Exam Narrative: Nurses notes and vital signs reviewed and patient is not hypoxic. Rhino Rocket in the right nostril; no active bleeding in the posterior aspect of the pharynx the patient had the Rhino Rocket intact General: Well-appearing and in no apparent distress. Skin: Warm, dry, no pallor noted. No rash. Head: Normocephalic, atraumatic. Neck: Supple, non-tender. Neurological: A&O x4. No cranial nerve dysfunction observed. No truncal ataxia. Moves all extremities. Sensation intact. Psychiatric: Cooperative and interactive. Normal mood and affect. Constitutional Vital Signs, click to edit/add: Last Vital Signs Temp 97.8 F 02/09/24 08:15 Pulse 80 02/09/24 08:15 Resp 18 02/09/24 08:15 BP 167/108 H 02/09/24 08:15 Pulse Ox 98 02/09/24 08:15 Course Vital Signs Vital signs: Vital Signs Temperature 97.8 F 02/09/24 08:15 Pulse Rate 80 02/09/24 08:15 Respiratory Rate 18 02/09/24 08:15 Blood Pressure 167/108 H 02/09/24 08:15 Pulse Oximetry 98 02/09/24 08:15 Temperature 97.8 F 02/09/24 08:15 Pulse Rate 80 02/09/24 08:15 Respiratory Rate 18 02/09/24 08:15 Blood Pressure 167/108 H 02/09/24 08:15 Pulse Oximetry 98 02/09/24 08:15 MDM - Epistaxis MDM Narrative Medical decision making narrative: Decrease the pressure mildly in the right side of the nostril Rhino Rocket Patient was monitored at least for 15 minutes during which she does not have any bleeding Patient was discharged with the same instructions before that were given to her at the initial visit Discharge Plan Discharge Chief Complaint: Epistaxis Clinical Impression: Epistaxis Patient Disposition: Home, Self-Care Time of Disposition Decision: 08:31 Condition: Good Prescriptions / Home Meds: No Action dexlansoprazole 60 mg capsule,biphase delayed releas 60 mg PO QDAY metoprolol succinate 50 mg tablet extended release 24 hr 50 mg PO QDAY amoxicillin 500 mg capsule 500 mg PO TID 3 Days Qty: 9 0RF Print Language: Faroese Instructions: Nosebleed (ED) Referrals: Kimberly Boles MD [Primary Care Provider] - 1 week
--- OUTSIDE RECORDS SUMMARY | 2024-02-09 08:33 | XMS_ITS | CCD ---
Author Organization [facility] Care Team Providers Care Ship Scaler Name Role Phone CRISTINA RAMIREZ Attending Unavailable [...] Unavailable ROSMERY, DR KIMBERLY Peñaloza Attending Unavailable ROSMERY, DR KIMBERLY Peñaloza Admitting Unavailable Kimberly Botello [...] 8:39am take 1 tablet by mouth once kenenth y Metoprolol Succinate ER 50 MG take [...] 3:52pm Start: 06-02-2022 [facility] Dexilant 60 MG 1 [...] 1:42pm Start: 08-24-2019 take 1 tablet by [facility] every twelve hours at mealtime as needed [...] unspecified] Episodic Other aftercare (1 source) Other skilled nursing (current) drug therapy; Translations: [OTH LONG-TERM CURRENT DRUG THERAPY] Onset: 05-12-2022 Episodic Other [...] 05-21-2021 BASO # 0.0 103/ul Normal 0.0-0.1 [facility] Comment on above: Performed By: #### C BC #### [facility] [address] [address] [address] Da Graham Basophils/100 WBC (Bld) 0.3 % Normal 0.2-2.0 [facility] Comment on above: Performed By: #### C BC #### [facility] [address] [address] [address] Da Graham EO # 0.2 103/ul Normal 0.0-0.7 [facility] Comment on above: Performed By: #### C BC #### [facility] [address] [address] [address] Da Graham Eosinophils/100 WBC (Bld) 2.3 % Normal 0.9-7.0 [facility] Comment on above: Performed By: #### C BC #### [facility] [address] [address] [address] Da Graham Erythrocyte distribution width (RBC) [Ratio] 11.5 % Normal 11.0-15.0 [facility] Comment on above: Performed By: #### C BC #### [facility] [address] [place] [address] Dr. Da Graham Hematocrit (Bld) [Volume fraction] 41.0 % Normal 36.0-48.0 [facility] Comment on above: Performed By: #### C BC #### [facility] [address] [address] [address] Da Graham Hemoglobin (Bld) [Mass/Vol] 13.5 g/dL Normal 12.0-16.0 [facility] Comment on above: Performed By: #### C BC #### [facility] [address] [address] [address] Da Graham IG # 0.04 10e3/ul Critically high 0.00-0.03 [facility] Comment on above: Performed By: #### C BC #### [facility] [address] [address] [address] Da Graham IG % 0.5 % Normal 0.0-0.5 [facility] Comment on above: Performed By: #### C BC #### [facility] [address] [place] [address] Dr. Da Graham LYMPH # 1.9 103/ul Normal 1.2-3.8 [facility] Comment on above: Performed By: #### C BC #### [facility] [address] [place] [address] Dr. Da Graham Lymphocytes/100 WBC (Bld) 25.2 % Normal 20.5-60.0 [facility] Comment on above: Performed By: #### C BC #### [facility] [address] [place] [address] Dr. Da Graham MANUAL DIFF REQ NO Normal [facility] Comment on above: Performed By: #### C BC #### [facility] [address] [place] [address] Dr. Da Graham MCH (RBC) [Entitic mass] 31.6 pg Normal 26.7-34.0 [facility] Comment on above: Performed By: #### C BC #### [facility] [address] [place] [address] Dr. Da Graham MCHC (RBC) [Mass/Vol] 32.9 g/dL Normal 29.9-35.2 [facility] Comment on above: Performed By: #### C BC #### [facility] [address] [place] [address] Dr. Da Graham MCV (RBC) [Entitic vol] 96.0 fL Normal 81.0-99.0 [facility] Comment on above: Performed By: #### C BC #### [facility] [address] [place] [address] Dr. Da Graham MONO # 0.6 103/ul Normal 0.3-0.8 [facility] Comment on above: Performed By: #### C BC #### [facility] [address] [place] [address] Dr. Da Graham Monocytes/100 WBC (Bld) 7.7 % Normal 1.7-12.0 [facility] Comment on above: Performed By: #### C BC #### [facility] [address] [place] [address] Dr. Da Graham NEUT # 4.8 103/ul Normal 1.4-6.5 [facility] Comment on above: Performed By: #### C BC #### [facility] [address] [place] [address] Dr. Da Graham Neutrophils/100 WBC (Bld) 64.0 % Normal 43.0-75.0 [facility] Comment on above: Performed By: #### C BC #### [facility] [address] [place] [address] Dr. Da Graham Platelet mean volume (Bld) [Entitic vol] 11.4 fL Normal 9.5-13.5 [facility] Comment on above: Performed By: #### C BC #### [facility] [address] [place] [address] Dr. Da Graham PLT 247 103/ul Normal 150-450 [facility] Comment on above: Performed By: #### C BC #### [facility] [address] [place] [address] Dr. Da Graham RBC 4.27 106/ul Normal 4.20-5.40 [facility] Comment on above: Performed By: #### C BC #### [facility] [address] [place] [address] Dr. Da Graham WBC 7.5 103/ul Normal 4.0-11.0 [facility] Comment on above: Performed By: #### C BC #### [facility] [address] [address] [address] Da Graham FERRITINon 05-21-2021 Ferritin [Mass/Vol] 132.0 ng/mL Normal 6.2-137.0 [facility] Comment on above: Performed By: #### F ERR #### [facility] [address] [place] [address] Dr. Da Graham PROF CHEM 8 (BAS METB)on Anion gap [Moles/Vol] 11.2 mmol/L Normal [facility] Comment on above: Performed By: #### B MP #### [facility] [address] [place] [address] Dr. Da Graham Calcium [Mass/Vol] 8.0 mg/dL Critically low 8.4-10.[address] [facility] Comment on above: Performed By: #### B MP #### [facility] [address] [place] [address] Dr. Da Graham Chloride [Moles/Vol] 104 mmol/L Normal 98-107 [facility] Comment on above: Performed By: #### B MP #### [facility] [address] [place] [address] Dr. Da Graham CO2 [Moles/Vol] 27.4 mmol/L Normal 22.0-30.0 [facility] Comment on above: Performed By: #### B MP #### [facility] [address] [place] [address] Dr. Da Graham Creatinine [Mass/Vol] 0.66 mg/dL Normal 0.52-1.04 [facility] Comment on above: Performed By: #### B MP #### [facility] [address] [place] [address] Dr. Da Graham EGFR-AF DJIBOUTIAN >60 Normal >=60 [facility] Comment on above: Performed By: #### B MP #### [facility] [address] [place] [address] Dr. Da Graham EGFR-NON AF DJIBOUTIAN >60 Normal >=60 [facility] Comment on above: Performed By: #### B MP #### [facility] [address] [address] [address] Da Graham Glucose [Mass/Vol] 129 mg/dL Critically high 74-106 [facility] Comment on above: Performed By: #### B MP #### [facility] [address] [address] [address] Da Graham Potassium [Moles/Vol] 3.6 mmol/L Normal 3.4-5.0 [facility] Comment on above: Performed By: #### B MP #### [facility] [address] [address] [address] Da Graham Sodium [Moles/Vol] 139 mmol/L Normal 137-145 [facility] Comment on above: Performed By: #### B MP #### [facility] [address] [address] [address] Da Graham Urea nitrogen [Mass/Vol] 10.0 mg/dL Normal 7.0-17.0 [facility] Comment on above: Performed By: #### B MP #### [facility] [address] [address] [address] Da Graham Urea nitrogen/Creatinine [Mass ratio] 15.2 mg/mg Normal [facility] Comment on above: Performed By: #### B MP #### [facility] [address] [address] [address] Da Luo [facility] EVELINE PLATT ([id number]) 1980 F Date Time Provider Department 09/16/20 [...] Encounter Status:Closed by ALYCIA FELIX on 09/17/20 [facility] CNOVSPon 06-24-2020 CNOVSP Visit (SP) Office ([facility]) EVELINE PLATT ([id number]) 1980 F Date Time Provider Department 06/24/20 2:15 PM BLAKE PATEL During your visit today, we recorded the following information about you: Temperature Pulse Respiration Blood pressure 97.4 degrees 98/minute 16/minute 135/68 Weight Height Last Period 94.1 kg 1.549 m 05/25/20 Blake Patel MD 06/25/2020 6:20 AM Signed NAME: Eveline Platt CLINIC NO.: [id number] DATE OF SERVICE: June 24, 2020 Some [...] also endorses heavy menses. 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 Per HPI and [...] (mg/dL) Date (more content not included)... Normal [facility] Comp Metabolic Panelon 06-24 Albumin [Mass/Vol] 4.5 g/dL Normal 3.9-4.9 [facility] ALP [Catalytic activity/Vol] 86 U/L Normal 34-123 [facility] ALT [Catalytic activity/Vol] 27 U/L Normal 7-38 [facility] Anion gap [Moles/Vol] 7 mmol/L Low 9-18 [facility] AST [Catalytic activity/Vol] 22 U/L Normal 13-35 [facility] Bilirubin [Mass/Vol] 0.2 mg/dL Normal 0.2-1.3 [facility] Calcium [Mass/Vol] 9.0 mg/dL Normal 8.5-10.2 [facility] Chloride [Moles/Vol] 106 mmol/L High 97-105 [facility] CO2 [Moles/Vol] 25 mmol/L Normal 22-30 [facility] Creatinine [Mass/Vol] 0.64 mg/dL Normal 0.58-0.96 [facility] eGFR- Amer. >60 Normal [facility] eGFR-All Other Races >60 Normal [facility] Comment on above: Result Comment: eGFR [...] GFR. Glucose [Mass/Vol] 101 mg/dL High 74-99 [facility] Comment on above: Result Comment: The [place] [employer] (ADA) provides guidance for cutoff [...] Standards of Medical Care in Diabetes 2016, [place] [employer]. Diabetes Care. 2016.39(Suppl 1). Potassium [Moles/Vol] 3.9 mmol/L Normal 3.7-5.1 [facility] Protein [Mass/Vol] 7.1 g/dL Normal 6.3-8.0 [facility] Sodium [Moles/Vol] 138 mmol/L Normal 136-144 [facility] Urea nitrogen [Mass/Vol] 10 mg/dL Normal 7-21 [facility] Ferritinon 06-24-2020 Ferritin [Mass/Vol] 64.2 ng/mL Normal 14.7-205.1 [facility] Comment on above: Performed By: #### F ERR, IRON #### [facility] [address] [address] Iron and TIBCon 06-24-2020 Iron [Mass/Vol] 43 ug/dL Normal 41-186 [facility] Comment on above: Performed By: #### F ERR, IRON #### [facility] [address] [place], [place] [address] TIBC 305 ug/dL Normal 232-386 [facility] Comment on above: Performed By: #### F ERR, IRON #### [facility] [address] [place], [place] [address] Transferrin Saturatn 14 % Low 15-57 [facility] Comment on above: Performed By: #### F ERR, IRON #### [facility] [address] [place], [place] [address] Remote CBCDIF (for [facility] use o nly)on 06-24-2020 Abs Baso <0.03 Normal <0.11 [facility] Abs Hatillo 0.76 k/uL Normal <0.87 [facility] Abs Neut 4.47 k/uL Normal 1.45-7.50 [facility] Absolute nRBC <0.01 Normal <0.01 [facility] Basophils/100 WBC (Bld) 0.3 % Normal [facility] DTYPE Auto Diff Normal [facility] Eosinophils (Bld) [#/Vol] 0.13 10*3/uL Normal <0.46 [facility] Eosinophils/100 WBC (Bld) 1.9 % Normal [facility] Erythrocyte distribution width (RBC) [Ratio] 13.2 % Normal 11.5-15.0 [facility] Hematocrit (Bld) [Volume fraction] 40.6 % Normal 36.0-46.0 [facility] Hemoglobin (Bld) [Mass/Vol] 13.1 g/dL Normal 11.5-15.5 [facility] Lymphocytes (Bld) [#/Vol] 1.60 10*3/uL Normal 1.00-4.00 [facility] Lymphocytes/100 WBC (Bld) 22.9 % Normal [facility] MCH 29.4 pG Normal 26.0-34.0 [facility] MCHC (RBC) [Mass/Vol] 32.3 g/dL Normal 30.5-36.0 [facility] MCV (RBC) [Entitic vol] 91.2 fL Normal 80.0-100.0 [facility] Monocytes/100 WBC (Bld) 10.9 % Normal [facility] Neutrophils/100 WBC (Bld) 64.0 % Normal [facility] NRBCs 0.0 /100 WBC Normal 0 [facility] Platelet mean volume (Bld) [Entitic vol] 11.5 fL Normal 9.0-12.7 [facility] Platelets (Bld) [#/Vol] 235 10*3/uL Normal 150-400 [facility] RBC (Bld) [#/Vol] 4.45 10*6/uL Normal 3.90-5.20 [facility] WBC (Bld) [#/Vol] 6.98 10*3/uL Normal 3.70-11.00 [facility] CNOVSPon 05-13-2020 CNOVSP Visit (SP) Office ([facility]) EVELINE PLATT ([id number]) 1980 F Date Time Provider Department 05/13/20 11:15 AM BLAKE PATEL During your visit today, we recorded the following information about you: Temperature Pulse Respiration Blood pressure 97.3 degrees 79/minute 18/minute 142/87 Weight Height 92.6 kg 1.549 m Blake Patel MD 05/13/2020 12:21 PM Signed NAME: Eveline Platt CLINIC NO.: [id number] DATE OF SERVICE: May 13, 2020 Referring [...] also endorses heavy menses. 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 Normal [facility] Comp Metabolic Panelon 05-13 Albumin [Mass/Vol] 4.4 g/dL Normal 3.9-4.9 [facility] ALP [Catalytic activity/Vol] 81 U/L Normal 34-123 [facility] ALT [Catalytic activity/Vol] 38 U/L Normal 7-38 [facility] Anion gap [Moles/Vol] 7 mmol/L Low 9-18 [facility] AST [Catalytic activity/Vol] 29 U/L Normal 13-35 [facility] Bilirubin [Mass/Vol] 0.3 mg/dL Normal 0.2-1.3 [facility] Calcium [Mass/Vol] 9.2 mg/dL Normal 8.5-10.2 [facility] Chloride [Moles/Vol] 105 mmol/L Normal 97-105 [facility] CO2 [Moles/Vol] 27 mmol/L Normal 22-30 [facility] Creatinine [Mass/Vol] 0.69 mg/dL Normal 0.58-0.96 [facility] eGFR- Amer. >60 Normal [facility] eGFR-All Other Races >60 Normal [facility] Comment on above: Result Comment: eGFR (Estimated [...] GFR. Glucose [Mass/Vol] 127 mg/dL High 74-99 [facility] Comment on above: Result Comment: The [place] Diabetes Association (ADA) provides guidance for cutoff [...] Standards of Medical Care in Diabetes 2016, [place] [employer]. Diabetes Care. 2016.39(Suppl 1). Potassium [Moles/Vol] 4.2 mmol/L Normal 3.7-5.1 [facility] Protein [Mass/Vol] 7.1 g/dL Normal 6.3-8.0 [facility] Sodium [Moles/Vol] 139 mmol/L Normal 136-144 [facility] Urea nitrogen [Mass/Vol] 9 mg/dL Normal 7-21 [facility] Ferritinon 05-13-2020 Ferritin [Mass/Vol] 45.5 ng/mL Normal 14.7-205.1 [facility] Comment on above: Performed By: #### F ERR, IRON #### [facility] [address] [address] Iron and TIBCon 05-13-2020 Iron [Mass/Vol] 85 ug/dL Normal 41-186 [facility] Comment on above: Performed By: #### F ERR, IRON #### [facility] [address] [address] TIBC 317 ug/dL Normal 232-386 [facility] Comment on above: Performed By: #### F ERR, IRON #### [facility] [address] [phone] Transferrin Saturatn 27 % Normal 15-57 [facility] Comment on above: Performed By: #### F ERR, IRON #### [facility] [address] [address] Remote CBCDIF (for [facility] use o nly)on 05-13-2020 Abs Baso <0.03 Normal <0.11 [facility] Abs Hatillo 0.64 k/uL Normal <0.87 [facility] Abs Neut 3.85 k/uL Normal 1.45-7.50 [facility] Absolute nRBC <0.01 Normal <0.01 [facility] Basophils/100 WBC (Bld) 0.3 % Normal [facility] DTYPE Auto Diff Normal [facility] Eosinophils (Bld) [#/Vol] 0.19 10*3/uL Normal <0.46 [facility] Eosinophils/100 WBC (Bld) 3.3 % Normal [facility] Erythrocyte distribution width (RBC) [Ratio] 13.4 % Normal 11.5-15.0 [facility] Hematocrit (Bld) [Volume fraction] 38.8 % Normal 36.0-46.0 [facility] Hemoglobin (Bld) [Mass/Vol] 12.7 g/dL Normal 11.5-15.5 [facility] Lymphocytes (Bld) [#/Vol] 1.05 10*3/uL Normal 1.00-4.00 [facility] Lymphocytes/100 WBC (Bld) 18.2 % Normal [facility] MCH 29.5 pG Normal 26.0-34.0 [facility] MCHC (RBC) [Mass/Vol] 32.7 g/dL Normal 30.5-36.0 [facility] MCV (RBC) [Entitic vol] 90.2 fL Normal 80.0-100.0 [facility] Monocytes/100 WBC (Bld) 11.1 % Normal [facility] Neutrophils/100 WBC (Bld) 67.1 % Normal [facility] NRBCs 0.0 /100 WBC Normal 0 [facility] Platelet mean volume (Bld) [Entitic vol] 11.2 fL Normal 9.0-12.7 [facility] Platelets (Bld) [#/Vol] 240 10*3/uL Normal 150-400 [facility] RBC (Bld) [#/Vol] 4.30 10*6/uL Normal 3.90-5.20 [facility] WBC (Bld) [#/Vol] 5.77 10*3/uL Normal 3.70-11.00 [facility] Coding Summaryon 01-22-2019 Coding Summary CODING DATE: 01/22/2019 [facility] STATUS: Home 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 APC DESCRIPTION [...] PROC APC STAT DESCRIPTION DOCTOR NAME DATE [id number] J1 Laparoscopy, surgical; Eliezer Torres DO with removal of adnexal structures (partial or total oophorectomy and/or salpingectomy) RT Right side (used to identify procedures performed on the right side of the body) [id number] J1 Laparoscopy, surgical; Eliezer Torres DO with [...] Awilda Edouard Date Saved: 01/22/2019 10:54 am [facility] Lab - AP Resultson 9 Lab - AP Results [id number] .00OTGTIFF [facility] MAGR Postoperative Recordon 01-21-2019 MAGR Postoperative Record MAGR Phase II Record Summary Primary Physician: Eliezer Torres DO Finalized Date/Time: 01/21/19 13:15:02 Pt. Name: EVELINE PLATT/Sex: 1980 FEMALE Med Rec #: [id number] Physician: Eliezer Torres DO Financial #: [id number] Pt. Type: D Room/Bed: / Admit/Disch: 01/15/19 [...] Signed By: Brittany Soler RN 01/21/19 13:15 [facility] Pathology Sendout Teston Pathology Send Out. See Report [facility] Comment on above: Order Comment: Right fallopian tube and right ovaryPost op Dx: Pelvic pain Performed By: #### 2 [id number] ####[facility] (DEFAULT)[address] [place] [address] History and Physicalon 01-17 History and Physical [id number] [facility] - [facility]/P hysicianon 01-17-2019 Operative Report - Surgeon/Physician [id number] .00[facility] Provider Orderson 01-17-2019 Provider Orders [id number] [place] [address] Consent Formson 01-16-2019 Consent Forms [id number] [place] [address] MAGR Intraoperative Recordon 01-16-2019 MAGR Intraoperative Record MAGR Intra-Op Record Summary Primary Physician: Eliezer Torres DO Finalized Date/Time: 01/16/19 15:11:50 Pt. Name: EVELINE PLATT/Sex: 1980 FEMALE Med Rec #: [id number] Physician: Eilezer Torres DO Financial #: [id number] Pt. Type: D Room/Bed: / Admit/Disch: 01/15/19 [...] Role Performed Surgeon - Primary Anesthesiologist of Bow Maker Machine Tender Record Time In 01/15/19 11:36:00 01/15/19 11:36:00 [...] Kidd Role Performed Scrub Personnel Scrub Personnel Cathode Ray Tube Assembler Time In 01/15/19 11:36:00 01/15/19 11:36:00 01/15/19 11:36:00 Time Out 01/15/19 13:26:00 01/15/19 13:26:00 01/15/19 13:26:00 Procedure Tubal Ligation Tubal Ligation Tubal Ligation Laparoscopic Laparoscopic Laparoscopic Last Modified By: Rodriguez LEE, Bianka Frias RN, Bianka Meyer RN 01/15/19 13:34:13 01/15/19 13:34:13 01/15/19 13:32:06 Entry 7 Case Attendee Brittany Guthrie RN Role Performed Bow Maker Machine Tender Time In 01/15/19 11:36:00 Time Out 01/15/19 [...] Uncrossed? Yes Press Points Checked Yes Additional Del Dios Pad Positioning Device Safety Strap Information Outcome [...] Count Time 01/15/19 11:50:00 Performed By Zev CIRCULAR SHEAR OPERATORGregi Counts Verification Final Counts Items Included in Sponges, Sharps Final Count Method Manual Final Count Final Count Status Correct Final Counts Bianka Frias RN, Performed By Zev CIRCULAR SHEAR OPERATORZamzam Final Count Time 01/15/19 13:10:00 Surgeon notified [...] Outcome Met (O.10) Yes Last Modified By: Bianka Frias RN 01/15/19 12:22:01 Post-Care Text: E.10 [...] By: Bianka Frias RN 01/16/19 15:11 Normal [facility] [place] Operative Report - Surgeon/P sourav 01-16-2019 Operative Report - Surgeon/Physician DATE OF PROCEDURE: 01/15/19 SURGEON: Eliezer Torres DO ANESTHESIA: Tray Gill MD (General) PREOPERATIVE [...] years ago from a laparoscopy. Next, an [place] uterine manipulator was advanced into the cervix [...] a subcuticular manner on the skin. The [place] uterine manipulator was then removed from the [...] room in awake and stable condition. Eliezer oTrres DO JOB #: [id number] [Electronically Signed on: 01/21/2019 09:10 EST] Eliezer Torres DO [Verified on: 01/21/2019 09:10 EST] Eliezer Torres DO [Transcribed on: 01/16/2019 10:53 EDT] [facility] [place] [facility] Telemetry Stripson 9 Telemetry Strips [id number] .00OTGTIFF [facility] Anesthesia Noteon 01-15-2019 Anesthesia Note Patient: EVELINE PLATT Age: 38 years Sex: FEMALE : 1980 Associated Diagnoses: None Author: Tray Gill MD Preoperative Information Anesthesia history: Patient history: No difficult intubation, No malignant hyperthermia. Family history: No malignant hyperthermia. Review of Systems Respiratory: No shortness of breath, No apnea. Cardiovascular: No known MT, No chest pain. Gastrointestinal: Heartburn. Health Status Allergies: Allergic Reactions (All) No known allergies Current medications: Home Medications (1) Active pantoprazole 40 mg oral delayed release tablet 40 mg = 1 tab(s), PO, BID Problem list (past medical history): All Problems Right ovarian cyst / SNOMED CT 765181568 / Confirmed DDD (degenerative disc disease), lumbosacral / SNOMED CT 114832953 / Confirmed Eye symptom / SNOMED CT 6938431554 / Confirmed GERD (gastroesophageal reflux disease) / SNOMED CT 907985825 / Confirmed Resolved: Chest pain / SNOMED CT 66663706 Resolved: Palpitations / SNOMED CT 918437745 Canceled: DDD (degenerative disc disease), thoracic / SNOMED CT 250992981 Histories Family History: Esophagus Mother Comments: 04/26/2017 16:57 Aicha Wasserman RN esophagus extra long Kidney Brother Comments: 04/26/2017 16:57 Aicha Wasserman RN kidney transplant Thyroid disease Mother Brother Diabetes mellitus type I Father Brain tumor Mother High blood pressure Father Brother Osteoarthritis Mother Coronary heart disease Father Procedure history: Polypectomy of cervix (203062935) on 04/26/2017 at 36 Years. Comments: 01/02/2019 13:19 Haritha Barger RN ovarian cyst. Patient stated laceration under cervix also with repair Dilation and curettage (11315134) on 03/20/2010 at 29 Years. Comments: 04/26/2017 16:00 ANATOLIY MorenoAicha silvestre hemorrhaged 1 hour after procedure was done Dilation and curettage ([id number]). Arthroscopy of knee (568764668). Comments: 01/02/2019 13:00 Haritha Barger RN left [...] U Preg Negative . Laboratory Results Plan [employer] [place] [employer]#( A) physical status classification: Class II. Anesthetic Preoperative Plan Anesthesia: General. . Anesthetic plan, risks, benefits, and alternatives discussed with the patient and/or family. Patient verbalized understanding. Family/Guardian present. Informed consent was given. Consent was signed by the patient. [Electronically Signed on: 01/15/2019 12:03 EDT] Tray Gill MD [Verified on: 01/15/2019 12:03 EDT] Tray Gill MD [facility] Inpatient Patient Summaryon 01-15-2019 [place] [address] Patient Discharge Instructions Name: PLATTKAYLIN OBANDONA Praveen : 1980 Patient Address: [address] [place] [address] Primary Care Provider: Name: Kimberly Botello MD After you are discharged if you find you have any questions, please, call [phone] ext [phone] to speak to a nurse. Discharge Diagnosis: Pelvic pain Prescription Information: If you have been given a prescription for narcotics, seek immediate medical attention if you have any difficulty breathing or any sudden status changes such as confusion and sleepiness. If you or anyone you know is experiencing suicidal thoughts, mental health, alcohol and/or drug addiction problems; contact the [facility] 10/10 Crisis Hotline -Text 4HTFT [place] [address]44. If you received any narcotics, sedation, or [...] business decisions or sign any legal documents [facility] would like to thank you for allowing us to assist you with your healthcare needs. The following includes patient education materials and information regarding your injury/illness. EVELINE PLATT has been given the following list of follow-up instructions, prescriptions, and patient education materials: Follow-up Instructions With: Address: When: Eliezer Torres [address] [place], [place] [address] Business (1) In 2 weeks 01/29/2019 With: Address: When: Kimberly Botello [address] [place] [address], [address] [place] [phone] Business (1) Medications During the course of your visit, your medication list was updated with the most current information. The details of those changes are reflected below: New Medications Printed Prescriptions acetaminophen-hydroco done (Minto 5 mg-325 mg oral tablet) 1 tab(s) [...] you can keep with you. acetaminophen-hydroco done (Minto 5 mg-325 mg oral tablet) 1 tab(s) [...] and abdomen. HOME CARE INSTRUCTIONS ? Take fxnh-qsw-gmypqyi and prescription medicines only as told by [...] and water are not available, use hand special forces engineer sergeant. ? Change your dressings (Band Aids) daily [...] provider. Document Released: 02/15/2016 Document Reviewed: 02/15/2016 [employer] Interactive Patient Education ?2016 [employer] Inc[employer] Viruses or Bacteria What?s got you [...] for Disease Control and Prevention November 2013 [facility] MAGR PACU Recordon 9 MAGR PACU Record MAGR PACU Record Summary Primary Physician: Eliezer Torres DO Finalized Date/Time: 01/15/19 14:27:14 Pt. Name: EVELINE PLATT/Sex: 1980 FEMALE Med Rec #: [id number] Physician: Eliezer Torres DO Financial #: [id number] Pt. Type: D Room/Bed: / Admit/Disch: 01/15/19 [...] Signed By: Paty Anne RN 01/15/19 14:27 [facility] MAGR Preoperative Recordon 1 MAGR Preoperative Record MAGR Pre-Op Record Summary Primary Physician: Eliezer Torres DO Finalized Date/Time: 01/15/19 12:44:26 Pt. Name: EVELINE PLATT/Sex: 1980 FEMALE Med Rec #: [id number] Physician: Eliezer Torres DO Financial #: [id number] Pt. Type: D Room/Bed: / Admit/Disch: 01/15/19 [...] Signed By: Bianka Frias RN 01/15/19 12:44 [facility] Patient Handouton 01-15-2019 Patient Handout Diagnostic Laparoscopy, [...] and abdomen. HOME CARE INSTRUCTIONS ? 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 ? Change your dressings (Band Aids) daily [...] provider. Document Released: 02/15/2016 Document Reviewed: 02/15/2016 [employer] Interactive Patient Education ?2015 [employer] Inc[employer] Normal [facility] Test Urine 1on U Preg Negative [facility] Comment on above: Performed By: #### 3 [id number] #### [facility] (DEFAULT) [address] [place] [address] 87738 U Preg Internal Control Pass [facility] Comment on above: Performed By: #### 3 [id number] #### [facility] (DEFAULT) [address] [place] [address] 31349 Progress Note - Nurseon - Progress Note - Nurse Pre op phone call complete. Spoke with patient, confirmed time of arrival for 0900 on 01/14/19 [Electronically Signed on: 01/14/2019 10:13 EDT] Haritha Lee RN [Verified on: 01/14/2019 10:13 EDT] Haritha Lee RN [facility] ABORhon 01-13-2019 ABO and Rh group Nom (Bld) Hx Check: Found Anti-A: 0 Anti-B: 0 Anti-D: 4+ DCon: NT A1: 4+ B: 4+ ABORh Interp: O POS [facility] Comment on above: Performed By: #### 2 [id number], [id number], [id number], [id number] #### [facility] (DEFAULT) [address] [place] [address] 61854 ABSC Gelon 01-13-2019 ABSC Gel Negative [facility] Comment on above: Performed By: #### 2 [id number], [id number], [id number], [id number] #### [facility] (DEFAULT) [address] [place] [address] Blood Bank IDon 01-13-2019 Blood Bank ID BBID: [id number] [facility] Comment on above: Performed By: #### 2 [id number], [id number], [id number], [id number] #### [facility] (DEFAULT) [address] [place] [address] 63568 Hgbon 01-13-2019 Hemoglobin (Bld) [Mass/Vol] 13.9 g/dL Normal 11.3-15.9 [facility] Comment on above: Performed By: #### 2 [id number], [id number], [id number], [id number] #### [facility] (DEFAULT) [address] [place], [place] [id number] Coding Summaryon 01-10-2019 Coding Summary CODING DATE: 01/10/2019 [facility] STATUS: Home 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 ADMIT DX: [...] Silva Date Saved: 01/10/2019 04:33 pm Normal [facility] Provider Orderson 01-07-2019 Provider Orders [id number] Normal [facility] .Auto Diff 1on 01-02-2019 Auto [place] % 9 % Normal 1-12 [facility] Comment on above: Performed By: #### 7 [id number], [id number] #### [facility] (DEFAULT) [address] [place] [address] 02258 Baso Abs# 0.0 x10 Normal 0.0-0.2 [facility] Comment on above: Performed By: #### 7 [id number], [id number] #### [facility] (DEFAULT) [address] [place] [address] 12426 Basophils/100 WBC (Bld) 0.4 % Normal 0.2-2.0 [facility] Comment on above: Performed By: #### 7 [id number], [id number] #### [facility] (DEFAULT) [address] [place] [address] 14757 Eos Abs# 0.1 x10 Normal 0.0-0.4 [facility] Comment on above: Performed By: #### 7 [id number], [id number] #### [facility] (DEFAULT) [address] [place] [address] 21995 Eosinophils/100 WBC (Bld) 1.7 % Normal 0.9-4.0 [facility] Comment on above: Performed By: #### 7 319635, [id number] #### [facility] (DEFAULT) [address] [place] [address] 28127 Lymphocytes (Bld) [#/Vol] 1.4 x10 Normal 1.3-2.9 [facility] Comment on above: Performed By: #### 7 [id number], [id number] #### [facility] (DEFAULT) [address] [place] [address] 26981 Lymphocytes/100 WBC (Bld) 26 % Normal 14-48 [facility] Comment on above: Performed By: #### 7 [id number], [id number] #### [facility] (DEFAULT) [address] [place] [address] Hatillo Abs# 0.5 x10 Normal 0.0-0.8 [facility] Comment on above: Performed By: #### 7 [id number], [id number] #### [facility] (DEFAULT) [address] [place] [address] Neut Abs# 3.3 x10 Normal 1.5-9.2 [facility] Comment on above: Performed By: #### 7 750032, [id number] #### [facility] (DEFAULT) [address] [place] [address] Neutrophils/100 WBC (Bld) 63 % Normal 44-88 [facility] Comment on above: Performed By: #### 7 895344, [id number] #### [facility] (DEFAULT) [address] [place] [address] CBC w/ Auto Diffon 9 Erythrocyte distribution width (RBC) [Ratio] 12.6 % Normal 11.5-15.0 [facility] Comment on above: Performed By: #### 7 111173, [id number] #### [facility] (DEFAULT) [address] [place] [address] Hematocrit (Bld) [Volume fraction] 39.8 % Normal 33.7-40.4 [facility] Comment on above: Performed By: #### 7 772182, [id number] #### [facility] (DEFAULT) [address] [place] [address] Hemoglobin (Bld) [Mass/Vol] 13.2 g/dL Normal 11.3-15.9 [facility] Comment on above: Performed By: #### 7 [id number], [id number] #### [facility] (DEFAULT) [address] [place] [address] Man Diff? Auto Normal [facility] Comment on above: Performed By: #### 7 678953, [id number] #### [facility] (DEFAULT) [address] [place] [address] MCH (RBC) [Entitic mass] 31 pg Normal 24-34 [facility] Comment on above: Performed By: #### 7 964592, [id number] #### [facility] (DEFAULT) [address] [place] [address] 94610 MCHC (RBC) [Mass/Vol] 33 g/dL Normal 26-37 [facility] Comment on above: Performed By: #### 7 544390, [id number] #### [facility] (DEFAULT) [address] [place] [address] 60736 MCV (RBC) [Entitic vol] 93 fL Normal 81-100 [facility] Comment on above: Performed By: #### 7 603541, [id number] #### [facility] (DEFAULT) [address] [place] [address] 86455 Platelet mean volume (Bld) [Entitic vol] 11.2 fL High 6.3-10.2 [facility] Comment on above: Performed By: #### 7 186834, [id number] #### [facility] (DEFAULT) [address] [place] [address] 92432 Platelets (Bld) [#/Vol] 242 x10 Normal 138-427 [facility] Comment on above: Performed By: #### 7 301692, [id number] #### [facility] (DEFAULT) [address] [place] [address] 08012 RBC (Bld) [#/Vol] 4.26 x10 Normal 3.70-5.30 [facility] Comment on above: Performed By: #### 7 847088, [id number] #### [facility] (DEFAULT) [address] [place] [address] 45511 WBC (Bld) [#/Vol] 5.2 x10 Normal 3.5-10.5 [facility] Comment on above: Performed By: #### 7 039072, [id number] #### [facility] (DEFAULT) [address] [place] [address] 59910 BASIC METABOLIC PANELon 09-0 -2018 Calcium [Mass/Vol] 8.8 mg/dL Normal 8.6-10.3 [facility] Comment on above: Order Comment: No: D o not add to previous draw Performed By: #### 4 64, 16335 #### [facility] [address] [place] [address], [place] Chloride [Moles/Vol] 108 mmol/L High 98-107 [facility] Comment on above: Order Comment: No: D o not add to previous draw Performed By: #### 4 64, 21134 #### [facility] [address] [place] [address], [place] CO2 [Moles/Vol] 23 mmol/L Normal 21-31 [facility] Comment on above: Order Comment: No: D o not add to previous draw Performed By: #### 4 64, 79083 #### [facility] [address] [place] [address], [place] Creatinine [Mass/Vol] 0.59 mg/dL Low 0.60-1.20 [facility] Comment on above: Order Comment: No: D o not add to previous draw Performed By: #### 4 64, 52236 #### [facility] [address] [place] [address], [place] GFR/1.73 sq M predicted among blacks MDRD (S/P/Bld) [Vol rate/Area] mL/min/{1.73_m2} Normal >60 [facility] Comment on above: Order Comment: No: D o not add to previous draw Performed By: #### 4 64, 07471 #### [facility] [address] [place] [address], [place] GFR/1.73 sq M predicted among non-blacks MDRD (S/P/Bld) [Vol rate/Area] mL/min/{1.73_m2} Normal >60 [facility] Comment on above: Order Comment: No: D o not add to previous draw Performed By: #### 4 64, 08968 #### [facility] [address] [place] [address], [place] Glucose [Mass/Vol] 272 mg/dL High 70-100 [facility] Comment on above: Order Comment: No: D o not add to previous draw Performed By: #### 4 6413, 29332 #### [facility] [address] [place] [address], [place] Potassium [Moles/Vol] 3.6 mmol/L Normal 3.5-5.1 [facility] Comment on above: Order Comment: No: D o not add to previous draw Performed By: #### 4 64, 90165 #### [facility] [address] [place] [id number], [facility] Sodium [Moles/Vol] 137 mmol/L Normal 136-145 [facility] Comment on above: Order Comment: No: D o not add to previous draw Performed By: #### 4 64, 15480 #### [facility] [address] [place] [id number], [facility] Urea nitrogen [Mass/Vol] 17 mg/dL Normal 7-25 [facility] Comment on above: Order Comment: No: D o not add to previous draw Performed By: #### 4 6413, 39906 #### [facility] [address] CBC COMPLETE BLOOD COUNTon 0 - Erythrocyte distribution width (RBC) [Ratio] 13.0 % Normal 11.5-15.0 [facility] Comment on above: Order Comment: No: D o not add to previous draw Performed By: #### 4 6413, 28119 #### [facility] [address] [place] [id number], [facility] Hematocrit (Bld) [Volume fraction] 40.2 % Normal 36.0-45.0 [facility] Comment on above: Order Comment: No: D o not add to previous draw Performed By: #### 4 6413, 28627 #### [facility] [address] Hemoglobin (Bld) [Mass/Vol] 13.1 g/dL Normal 12.0-15.0 [facility] Comment on above: Order Comment: No: D o not add to previous draw Performed By: #### 4 64, 96466 #### [facility] [address] [place] [address], [facility] MCH (RBC) [Entitic mass] 30.7 pg Normal 27.0-33.0 [facility] Comment on above: Order Comment: No: D o not add to previous draw Performed By: #### 4 64, 03790 #### [facility] [address] [facility]. [address] MCHC (RBC) [Mass/Vol] 32.6 g/dL Normal 32.0-35.0 [facility] Comment on above: Order Comment: No: D o not add to previous draw Performed By: #### 4 62, 39129 #### [facility] [address] [facility]. [address] MCV (RBC) [Entitic vol] 94.1 fL Normal 82.0-98.0 [facility] Comment on above: Order Comment: No: D o not add to previous draw Performed By: #### 4 64, 75001 #### [facility] [address] [facility]. [address] Nucleated RBC/100 WBC (Bld) [Ratio] 0 % Normal 0-0 [facility] Comment on above: Order Comment: No: D o not add to previous draw Performed By: #### 4 30, 42607 #### [facility] [address] [facility] [place] [address], [facility] PLAT CNT 256 10*3/uL Normal 150-[address] [facility] Comment on above: Order Comment: No: D o not add to previous draw Performed By: #### 4 18, 79815 #### [facility] [address] [place] [address], [facility] RBC (Bld) [#/Vol] 4.27 10*6/uL Normal 3.80-5.00 [facility] Comment on above: Order Comment: No: D o not add to previous draw Performed By: #### 4 6413, 81854 #### [facility] [address] [place] [address], [facility] WBC (Bld) [#/Vol] 16.78 10*3/uL High 4.00-10.60 [facility] Comment on above: Order Comment: No: D o not add to previous draw Performed By: #### 4 6413, 66985 #### [facility] [address] [place] [id number], [facility] BASIC METABOLIC PANELon 09-0 -2018 Calcium [Mass/Vol] 9.4 mg/dL Normal 8.6-10.3 [facility] Comment on above: Order Comment: No: D o not add to previous draw Performed By: #### 4 6413, 33326 #### [facility] [address] [place] [id number], [place] Chloride [Moles/Vol] 105 mmol/L Normal 98-107 [facility] Comment on above: Order Comment: No: D o not add to previous draw Performed By: #### 4 6413, 30332 #### [facility] [address] [place] [id number], [facility] CO2 [Moles/Vol] 22 mmol/L Normal 21-31 [facility] Comment on above: Order Comment: No: D o not add to previous draw Performed By: #### 4 6413, 27763 #### [facility] [address] [place] [id number], [place] Creatinine [Mass/Vol] 0.51 mg/dL Low 0.60-1.20 [facility] Comment on above: Order Comment: No: D o not add to previous draw Performed By: #### 4 64, 04714 #### [facility] [address] [place] [address], [place] GFR/1.73 sq M predicted among blacks MDRD (S/P/Bld) [Vol rate/Area] mL/min/{1.73_m2} Normal >60 [facility] Comment on above: Order Comment: No: D o not add to previous draw Performed By: #### 4 64, 76978 #### [facility] [address] [place] [address], [place] GFR/1.73 sq M predicted among non-blacks MDRD (S/P/Bld) [Vol rate/Area] mL/min/{1.73_m2} Normal >60 [facility] Comment on above: Order Comment: No: D o not add to previous draw Performed By: #### 4 64, 30014 #### [facility] [address] [place] [address], [place] Glucose [Mass/Vol] 187 mg/dL High 70-100 [facility] Comment on above: Order Comment: No: D o not add to previous draw Performed By: #### 4 86, 57493 #### [facility] [address] [place] [address], [place] Potassium [Moles/Vol] 3.6 mmol/L Normal 3.5-5.1 [facility] Comment on above: Order Comment: No: D o not add to previous draw Performed By: #### 4 64, 97922 #### [facility] [address] [place] [address], [place] Sodium [Moles/Vol] 136 mmol/L Normal 136-145 [facility] Comment on above: Order Comment: No: D o not add to previous draw Performed By: #### 4 64, 17077 #### [facility] [address] [place] [address], [place] Urea nitrogen [Mass/Vol] 12 mg/dL Normal 7-25 [facility] Comment on above: Order Comment: No: D o not add to previous draw Performed By: #### 4 6413, 13399 #### [facility] [address] [place] [id number], [facility] CBC COMPLETE BLOOD COUNTon 0 11-20-2018 Erythrocyte distribution width (RBC) [Ratio] 12.7 % Normal 11.5-15.0 [facility] Comment on above: Order Comment: No: D o not add to previous draw Performed By: #### 4 64, 61185 #### [facility] [address] [place] [id number], [facility] Hematocrit (Bld) [Volume fraction] 40.8 % Normal 36.0-45.0 [facility] Comment on above: Order Comment: No: D o not add to previous draw Performed By: #### 4 64, 54218 #### [facility] [address] [place] [id number], [facility] Hemoglobin (Bld) [Mass/Vol] 13.6 g/dL Normal 12.0-15.0 [facility] Comment on above: Order Comment: No: D o not add to previous draw Performed By: #### 4 6413, 24990 #### [facility] [address] [place] [address], [facility] MCH (RBC) [Entitic mass] 30.0 pg Normal 27.0-33.0 [facility] Comment on above: Order Comment: No: D o not add to previous draw Performed By: #### 4 64, 04975 #### [facility] [address] [place] [address], [place] MCHC (RBC) [Mass/Vol] 33.3 g/dL Normal 32.0-35.0 [facility] Comment on above: Order Comment: No: D o not add to previous draw Performed By: #### 4 64, 33125 #### [facility] [address] [place] [address], [facility] MCV (RBC) [Entitic vol] 90.1 fL Normal 82.0-98.0 [facility] Comment on above: Order Comment: No: D o not add to previous draw Performed By: #### 4 6413, 10968 #### [facility] [address] [place] [address], [facility] Nucleated RBC/100 WBC (Bld) [Ratio] 0 % Normal 0-0 [facility] Comment on above: Order Comment: No: D o not add to previous draw Performed By: #### 4 64, 07838 #### [facility] [address] [place] [address], [facility] PLAT CNT 277 10*3/uL Normal 150-[address] [facility] Comment on above: Order Comment: No: D o not add to previous draw Performed By: #### 4 64, 05381 #### [facility] [address] [facility] [place] [address], [facility] RBC (Bld) [#/Vol] 4.53 10*6/uL Normal 3.80-5.00 [facility] Comment on above: Order Comment: No: D o not add to previous draw Performed By: #### 4 6413, 41228 #### [facility] [address] [place] [address], [facility] WBC (Bld) [#/Vol] 18.13 10*3/uL High 4.00-10.60 [facility] Comment on above: Order Comment: No: D o not add to previous draw Performed By: #### 4 64, 28209 #### [facility] [address] POC GLUCOSE LABon 11-20-2018 Glucose [Mass/Vol] 357 mg/dL High 70-100 [facility] Comment on above: Performed By: #### 4 64, 41176 #### [facility] [address] [place] [address], [place] Glucose [Mass/Vol] 272 mg/dL High 70-100 [facility] Comment on above: Performed By: #### 4 64, 59786 #### [facility] [address] [place] [address], [place] Glucose [Mass/Vol] 201 mg/dL High 70-100 [facility] Comment on above: Performed By: #### 4 64, 01158 #### [facility] [address] [place] [address], [place] Glucose [Mass/Vol] 183 mg/dL High 70-100 [facility] Comment on above: Performed By: #### 4 6413, 14642 #### [facility] [address] [place] [address], [place] BASIC METABOLIC PANELon 09-0 Calcium [Mass/Vol] 8.7 mg/dL Normal 8.6-10.3 [facility] Comment on above: Order Comment: No: D o not add to previous draw Performed By: #### 5 0608 #### [facility] [address] [place] [address], [place] Chloride [Moles/Vol] 106 mmol/L Normal 98-107 [facility] Comment on above: Order Comment: No: D o not add to previous draw Performed By: #### 5 0608 #### [facility] [address] [place] [address], [place] CO2 [Moles/Vol] 25 mmol/L Normal 21-31 [facility] Comment on above: Order Comment: No: D o not add to previous draw Performed By: #### 5 0608 #### [facility] [address] [place] [address], [place] Creatinine [Mass/Vol] 0.62 mg/dL Normal 0.60-1.20 [facility] Comment on above: Order Comment: No: D o not add to previous draw Performed By: #### 5 0608 #### [facility] [address] [place], [place] [address], [place] GFR/1.73 sq M predicted among blacks MDRD (S/P/Bld) [Vol rate/Area] mL/min/{1.73_m2} Normal >60 [facility] Comment on above: Order Comment: No: D o not add to previous draw Performed By: #### 5 0608 #### [facility] [address] [place] [address], [place] GFR/1.73 sq M predicted among non-blacks MDRD (S/P/Bld) [Vol rate/Area] mL/min/{1.73_m2} Normal >60 [facility] Comment on above: Order Comment: No: D o not add to previous draw Performed By: #### 5 0608 #### [facility] [address] [place] [address], [place] Glucose [Mass/Vol] 126 mg/dL High 70-100 [facility] Comment on above: Order Comment: No: D o not add to previous draw Performed By: #### 5 0608 #### [facility] [address] [place] [address], [place] Potassium [Moles/Vol] 3.7 mmol/L Normal 3.5-5.1 [facility] Comment on above: Order Comment: No: D o not add to previous draw Performed By: #### 5 0608 #### [facility] [address] [place] [address], [place] Sodium [Moles/Vol] 137 mmol/L Normal 136-145 The [facility] Comment on above: Order Comment: No: D o not add to previous draw Performed By: #### 5 0608 #### [facility] [address] Urea nitrogen [Mass/Vol] 14 mg/dL Normal 7-25 [facility] Comment on above: Order Comment: No: D o not add to previous draw Performed By: #### 5 0608 #### [facility] [address] [place] [address], [facility] CBC COMPLETE BLOOD COUNTon 0 11-19-2018 Erythrocyte distribution width (RBC) [Ratio] 12.7 % Normal 11.5-15.0 [facility] Comment on above: Order Comment: No: D o not add to previous draw Performed By: #### 5 0608 #### [facility] [address] [facility]. [address] Hematocrit (Bld) [Volume fraction] 40.8 % Normal 36.0-45.0 [facility] Comment on above: Order Comment: No: D o not add to previous draw Performed By: #### 5 0608 #### [facility] 3000 [facility]. [address] Hemoglobin (Bld) [Mass/Vol] 13.3 g/dL Normal 12.0-15.0 [facility] Comment on above: Order Comment: No: D o not add to previous draw Performed By: #### 5 0608 #### [facility] [address] [facility] [place] [address], [facility] MCH (RBC) [Entitic mass] 30.6 pg Normal 27.0-33.0 [facility] Comment on above: Order Comment: No: D o not add to previous draw Performed By: #### 5 0608 #### [facility] [address] [place] [id number], [facility] MCHC (RBC) [Mass/Vol] 32.6 g/dL Normal 32.0-35.0 [facility] Comment on above: Order Comment: No: D o not add to previous draw Performed By: #### 5 0608 #### [facility] [address] [place] [address], [facility] MCV (RBC) [Entitic vol] 93.8 fL Normal 82.0-98.0 [facility] Comment on above: Order Comment: No: D o not add to previous draw Performed By: #### 5 0608 #### [facility] [address] [place] [address], [facility] Nucleated RBC/100 WBC (Bld) [Ratio] 0 % Normal 0-0 [facility] Comment on above: Order Comment: No: D o not add to previous draw Performed By: #### 5 0608 #### [facility] [address] [facility] [place] [address], [facility] PLAT CNT 218 10*3/uL Normal 150-[address] [facility] Comment on above: Order Comment: No: D o not add to previous draw Performed By: #### 5 0608 #### [facility] [address] [facility] [place] [address], [facility] RBC (Bld) [#/Vol] 4.35 10*6/uL Normal 3.80-5.00 [facility] Comment on above: Order Comment: No: D o not add to previous draw Performed By: #### 5 0608 #### [facility] [address] [facility] [place] [address], [facility] WBC (Bld) [#/Vol] 6.28 10*3/uL Normal 4.00-10.60 [facility] Comment on above: Order Comment: No: D o not add to previous draw Performed By: #### 5 0608 #### [facility] [address] [facility] [place] [address], [facility] POC GLUCOSE LABon 11-19-2018 Glucose [Mass/Vol] 236 mg/dL High 70-100 [facility] Comment on above: Performed By: #### 5 0608 #### [facility] [address] [place] [address], [facility] Glucose [Mass/Vol] 217 mg/dL High 70-100 [facility] Comment on above: Performed By: #### 5 0608 #### [facility] [address] [facility] [place] [address], [facility] Glucose [Mass/Vol] 180 mg/dL High 70-100 [facility] Comment on above: Performed By: #### 5 0608 #### [facility] [address] [facility] [place] [address], [facility] Glucose [Mass/Vol] 110 mg/dL High 70-100 [facility] Comment on above: Performed By: #### 5 0608 #### [facility] [address] CBC W/DIFFon 11-18-2018 ABS BASOPHILS 0.0 10*3/uL Normal 0.0-0.2 The [facility] [place] Comment on above: Order Comment: Unkno wn Performed By: #### 5 0103 #### [facility] [address] [facility]. [address] ABS IMM GRANS 0.0 10*3/uL Normal 0.0-0.2 The [facility] Comment on above: Order Comment: Unkno wn Performed By: #### 5 0103 #### [facility] [address] [facility] [place] [address], [facility] ABS NEUTROPHILS 3.3 10*3/uL Normal 1.6-7.6 The [facility] Comment on above: Order Comment: Unkno wn Performed By: #### 5 0103 #### [facility] [address] [facility] [place] [address], [facility] Basophils/100 WBC (Bld) 0.4 % Normal 0.0-1.0 [facility] Comment on above: Order Comment: Unkno wn Performed By: #### 5 0103 #### [facility] [address] [facility] [place] [address], [facility] Eosinophils (Bld) [#/Vol] 0.1 10*3/uL Normal 0.0-0.5 [facility] Comment on above: Order Comment: Unkno wn Performed By: #### 5 0103 #### [facility] [address] [place] [address], [facility] Eosinophils/100 WBC (Bld) 2.3 % Normal 0.0-6.0 [facility] Comment on above: Order Comment: Unkno wn Performed By: #### 5 0103 #### [facility] [address] [facility] [place] [address], [facility] Erythrocyte distribution width (RBC) [Ratio] 12.8 % Normal 11.5-15.0 [facility] Comment on above: Order Comment: Unkno wn Performed By: #### 5 3 #### [facility] [address] [facility] [place] [address], [facility] Hematocrit (Bld) [Volume fraction] 38.6 % Normal 36.0-45.0 [facility] Comment on above: Order Comment: Unkno wn Performed By: #### 5 0103 #### [facility] [address] [facility] [place] [address], [facility] Hemoglobin (Bld) [Mass/Vol] 12.8 g/dL Normal 12.0-15.0 [facility] Comment on above: Order Comment: Unkno wn Performed By: #### 5 0103 #### [facility] [address] [facility] [address], [facility] IMMATURE GRANS 0.5 % Normal 0.0-1.0 The [facility] [place] Comment on above: Order Comment: Unkno wn Performed By: #### 5 3 #### [facility] [address] [place] [id number], [facility] Lymphocytes (Bld) [#/Vol] 1.6 10*3/uL Normal 1.2-4.0 [facility] Comment on above: Order Comment: Unkno wn Performed By: #### 5 0103 #### [facility] [address] [facility] [place] [address], [facility] Lymphocytes/100 WBC (Bld) 28.1 % Normal 20.0-45.0 [facility] Comment on above: Order Comment: Unkno wn Performed By: #### 5 0103 #### [facility] [address] [facility]. [address] MCH (RBC) [Entitic mass] 30.2 pg Normal 27.0-33.0 [facility] Comment on above: Order Comment: Unkno wn Performed By: #### 5 0103 #### [facility] [address] [facility]. [address] MCHC (RBC) [Mass/Vol] 33.2 g/dL Normal 32.0-35.0 [facility] Comment on above: Order Comment: Unkno wn Performed By: #### 5 3 #### [facility] [address] [facility] [place] [address], [facility] MCV (RBC) [Entitic vol] 91.0 fL Normal 82.0-98.0 [facility] Comment on above: Order Comment: Unkno wn Performed By: #### 5 3 #### [facility] [address] [facility] [place] [address], [facility] Monocytes (Bld) [#/Vol] 0.5 10*3/uL Normal 0.1-1.0 [facility] Comment on above: Order Comment: Unkno wn Performed By: #### 5 3 #### [facility] [address] [facility] [place] [address], [facility] MONOS 9.0 % Normal 5.0-12.0 [facility] Comment on above: Order Comment: Unkno wn Performed By: #### 5 3 #### [facility] 3000 [place] [address], [facility] Neutrophils/100 WBC (Bld) 59.7 % Normal 40.0-72.0 [facility] Comment on above: Order Comment: Unkno wn Performed By: #### 5 0103 #### [facility] [address] [place] [address], [facility] Nucleated RBC/100 WBC (Bld) [Ratio] 0 % Normal 0-0 [facility] Comment on above: Order Comment: Unkno wn Performed By: #### 5 0103 #### [facility] [address] [facility] [place] [place] [address], [facility] PLAT CNT 211 10*3/uL Normal 150-[address] [facility] Comment on above: Order Comment: Unkno wn Performed By: #### 5 102 #### [facility] [address] [facility] [place] [address], [facility] RBC (Bld) [#/Vol] 4.24 10*6/uL Normal 3.80-5.00 [facility] Comment on above: Order Comment: Unkno wn Performed By: #### 5 3 #### [facility] [address] [facility] [place] [address], [facility] WBC (Bld) [#/Vol] 5.55 10*3/uL Normal 4.00-10.60 [facility] Comment on above: Order Comment: Unkno wn Performed By: #### 5 3 #### [facility] [address] [facility]. [address] COMP METABOLIC PANELon 11-18 Albumin [Mass/Vol] 3.7 g/dL Normal 3.5-5.7 [facility] Comment on above: Order Comment: Unkno wn Performed By: #### 0 0121 #### [facility] [address] [place] [address], [facility] ALKALINE PHOSPH 64 IU/L Normal 34-104 The [facility] Comment on above: Order Comment: Unkno wn Performed By: #### 0 0121 #### [facility] [address] [place] [address], [place] ALT [Catalytic activity/Vol] 22 U/L Normal 7-52 [facility] Comment on above: Order Comment: Unkno wn Performed By: #### 0 0121 #### [facility] [address] [place] [address], [place] AST [Catalytic activity/Vol] 20 U/L Normal 13-39 [facility] Comment on above: Order Comment: Unkno wn Performed By: #### 0 0121 #### [facility] [address] [place] [address], [place] Bilirubin [Mass/Vol] 0.3 mg/dL Normal 0.3-1.0 [facility] Comment on above: Order Comment: Unkno wn Performed By: #### 0 0121 #### [facility] [address] [place] [address], [place] Calcium [Mass/Vol] 8.3 mg/dL Low 8.6-10.3 [facility] Comment on above: Order Comment: Unkno wn Performed By: #### 0 0121 #### [facility] [address] [place] [address], [place] Chloride [Moles/Vol] 107 mmol/L Normal 98-107 [facility] Comment on above: Order Comment: Unkno wn Performed By: #### 0 0121 #### [facility] [address] [place] [address], [place] CO2 [Moles/Vol] 22 mmol/L Normal 21-31 [facility] Comment on above: Order Comment: Unkno wn Performed By: #### 0 0121 #### [facility] [address] [place] [address], [place] Creatinine [Mass/Vol] 0.60 mg/dL Normal 0.60-1.20 [facility] Comment on above: Order Comment: Unkno wn Performed By: #### 0 0121 #### [facility] [address] [place] [address], [place] GFR/1.73 sq M predicted among blacks MDRD (S/P/Bld) [Vol rate/Area] mL/min/{1.73_m2} Normal >60 [facility] Comment on above: Order Comment: Unkno wn Performed By: #### 0 0121 #### [facility] [address] [place] [address], [place] GFR/1.73 sq M predicted among non-blacks MDRD (S/P/Bld) [Vol rate/Area] mL/min/{1.73_m2} Normal >60 [facility] Comment on above: Order Comment: Unkno wn Performed By: #### 0 0121 #### [facility] [address] [place] [address], [place] Glucose [Mass/Vol] 126 mg/dL High 70-100 [facility]: Order Comment: Unkno wn Performed By: #### 0 0121 #### [facility] [address] [place] [address], [place] Potassium [Moles/Vol] 3.7 mmol/L Normal 3.5-5.1 [facility] Comment on above: Order Comment: Unkno wn Performed By: #### 0 0121 #### [facility] [address] [place] [address], [place] Protein [Mass/Vol] 6.6 g/dL Normal 6.0-8.3 [facility] Comment on above: Order Comment: Unkno wn Performed By: #### 0 0121 #### [facility] [address] [place] [address], [place] Sodium [Moles/Vol] 135 mmol/L Low 136-145 [facility] Comment on above: Order Comment: Unkno wn Performed By: #### 0 0121 #### [facility] [address] [place] [address], [facility] Urea nitrogen [Mass/Vol] 10 mg/dL Normal 7-25 [facility] Comment on above: Order Comment: Unkno wn Performed By: #### 0 0121 #### [facility] [address] [facility] [place] [address], [facility] HEMOGLOBIN A1Con 11-18-2018 HbA1c (Bld) [Mass fraction] 103 mg/dL Normal 70-126 [facility] Comment on above: Order Comment: No: D o not add to previous draw Performed By: #### 4 6413, 14387 #### [facility] [address] [place] [address], [facility] HbA1c (Bld) [Mass fraction] 5.2 % Normal 4.0-6.0 [facility] Comment on above: Order Comment: No: D o not add to previous draw Performed By: #### 4 6413, 39043 #### [facility] [address] [place] [address], [facility] MRI FACE ORBIT NECK W WO CON TRASTon 11-18-2018 MRI FACE ORBIT NECK W WO CONTRAST [facility] Department of Radiology [address] [place] [id number] Patient Name: EVELINE PLATT : 1980 Sex: F Age: Race: White Pt. Location: [id number] Patient Status: I Ordered Date: 11/18/2018 1:50:00 [...] findings. Electronically signed by:Lisbeth Guzman. Transcribed by: [email or web address], User Resident: MELISSA BLANKENSHIP Electronically Signed by: LISBETH GUZMAN @ 11/19/2018 08:37 AM I personally read this/these film(s) with this resident Normal [facility] Comment on above: Order Comment: No: D o not add to previous draw POC GLUCOSE LABon 11-18-2018 Glucose [Mass/Vol] 150 mg/dL High 70-100 [facility] Comment on above: Performed By: #### 5 0608 #### [facility] [address] [place] [address], [place] Glucose [Mass/Vol] 103 mg/dL High 70-100 [facility] Comment on above: Performed By: #### 8 5499 #### [facility] [address] [place] [address], [place] BASIC METABOLIC PANELon 10-20 Calcium [Mass/Vol] 8.8 mg/dL Normal 8.6-10.3 [facility] Comment on above: Order Comment: No: D o not add to previous draw Performed By: #### 4 6413, 58001 #### [facility] [address] [place] [address], [place] Chloride [Moles/Vol] 105 mmol/L Normal 98-107 [facility] Comment on above: Order Comment: No: D o not add to previous draw Performed By: #### 4 6413, 73112 #### [facility] [address] [place] [address], [place] CO2 [Moles/Vol] 26 mmol/L Normal 21-31 The [facility] Comment on above: Order Comment: No: D o not add to previous draw Performed By: #### 4 6413, 51799 #### [facility] [address] [place] [address], [place] Creatinine [Mass/Vol] 0.71 mg/dL Normal 0.60-1.20 [facility] Comment on above: Order Comment: No: D o not add to previous draw Performed By: #### 4 6413, 75591 #### [facility] [address] [place] [address], [place] GFR/1.73 sq M predicted among blacks MDRD (S/P/Bld) [Vol rate/Area] mL/min/{1.73_m2} Normal >60 [facility] Comment on above: Order Comment: No: D o not add to previous draw Performed By: #### 4 64, 77546 #### [facility] [address] [place] [address], [place] GFR/1.73 sq M predicted among non-blacks MDRD (S/P/Bld) [Vol rate/Area] mL/min/{1.73_m2} Normal >60 [facility] Comment on above: Order Comment: No: D o not add to previous draw Performed By: #### 4 64, 48858 #### [facility] [address] [place] [address], [place] Glucose [Mass/Vol] 90 mg/dL Normal 70-100 [facility] Comment on above: Order Comment: No: D o not add to previous draw Performed By: #### 4 02, 76353 #### [facility] [address] [place] [address], [place] Potassium [Moles/Vol] 3.6 mmol/L Normal 3.5-5.1 [facility] Comment on above: Order Comment: No: D o not add to previous draw Performed By: #### 4 96, 27681 #### [facility] [address] [place] [address], [place] Sodium [Moles/Vol] 138 mmol/L Normal 136-145 [facility] Comment on above: Order Comment: No: D o not add to previous draw Performed By: #### 4 33, 44173 #### [facility] [address] [place] [address], [place] Urea nitrogen [Mass/Vol] 10 mg/dL Normal 7-25 [facility] Comment on above: Order Comment: No: D o not add to previous draw Performed By: #### 4 6413, 65751 #### [facility] [address] CBC COMPLETE BLOOD COUNTon 11-17-2018 Erythrocyte distribution width (RBC) [Ratio] 12.8 % Normal 11.5-15.0 [facility] Comment on above: Order Comment: No: D o not add to previous draw Performed By: #### 5 0608 #### [facility] [address] Hematocrit (Bld) [Volume fraction] 40.1 % Normal 36.0-45.0 [facility] Comment on above: Order Comment: No: D o not add to previous draw Performed By: #### 5 0608 #### [facility] [address] Hemoglobin (Bld) [Mass/Vol] 13.1 g/dL Normal 12.0-15.0 [facility] Comment on above: Order Comment: No: D o not add to previous draw Performed By: #### 5 0608 #### [facility] [address] [facility] [place] [address], [facility] MCH (RBC) [Entitic mass] 30.5 pg Normal 27.0-33.0 [facility] Comment on above: Order Comment: No: D o not add to previous draw Performed By: #### 5 0608 #### [facility] [address] [facility] [place] [address], [facility] MCHC (RBC) [Mass/Vol] 32.7 g/dL Normal 32.0-35.0 [facility] Comment on above: Order Comment: No: D o not add to previous draw Performed By: #### 5 0608 #### [facility] [address] [place] [address], [facility] MCV (RBC) [Entitic vol] 93.3 fL Normal 82.0-98.0 [facility] Comment on above: Order Comment: No: D o not add to previous draw Performed By: #### 5 0608 #### [facility] [address] [facility] [place] [address], [facility] Nucleated RBC/100 WBC (Bld) [Ratio] 0 % Normal 0-0 [facility] Comment on above: Order Comment: No: D o not add to previous draw Performed By: #### 5 0608 #### [facility] [address] [facility] [place] [address], [facility] PLAT CNT 225 10*3/uL Normal 150-[address] [facility] Comment on above: Order Comment: No: D o not add to previous draw Performed By: #### 5 0608 #### [facility] [address] [place] [address], [facility] RBC (Bld) [#/Vol] 4.30 10*6/uL Normal 3.80-5.00 [facility] Comment on above: Order Comment: No: D o not add to previous draw Performed By: #### 5 0608 #### [place] [address], [facility] WBC (Bld) [#/Vol] 5.88 10*3/uL Normal 4.00-10.60 [facility] Comment on above: Order Comment: No: D o not add to previous draw Performed By: #### 5 0608 #### [place] [address], [facility] CTA HEADon 11-17-2018 CTA HEAD [facility] Department of Radiology [address] [place] [address] Patient Name: EVELINE PLATT : 1980 Sex: F Age: Race: White Pt. Location: [id number] Patient Status: I Ordered Date: 11/17/2018 11:30:00 [...] findings. Electronically signed by:Brendan Mario. Transcribed by: [email or web address], User Resident: WHITNEY GLEASON Electronically Signed by: BRENDAN MARIO @ 11/18/2018 07:23 PM I personally read this/these film(s) with this resident Normal [facility] Comment on above: Order Comment: No: D o not add to previous draw CTA NECKon 11-17-2018 CTA NECK [facility] Department of Radiology [address] [place] [id number] Patient Name: EVELINE PLATT : 1980 Sex: F Age: Race: White Pt. Location: [id number] Patient Status: I Ordered Date: 11/17/2018 11:30:00 [...] findings. Electronically signed by:Brendan Mario. Transcribed by: [email or web address], User Resident: WHITNEY GLEASON Electronically Signed by: BRENDAN MARIO @ 11/18/2018 07:23 PM I personally read this/these film(s) with this resident Normal [facility] History and Physicalon 11-17 History and Physical MR#: [id number] [facility] Pt. Name: Eveline Platt Admitted: 11/17/2018 Date of : 1980 Attending Physician: Jennifer Kincaid MD Room #: [id number] Discharge Date: HISTORY AND PHYSICAL CHIEF COMPLAINT: [...] Kincaid MD Date Trans: 11/17/2018 05:13 A/jp [id number] Normal The [facility] LIPID PROFILEon 11-17-2018 Cholesterol [Mass/Vol] 133 mg/dL Normal 120-200 [facility] Comment on above: Order Comment: No: D o not add to previous draw Result Comment: CHOL ESTEROL REFERENCE RANGE: 20 YEARS AND OLDER CARDIOVASCULAR RISK Less than 200 mg/dl Low Risk 200 to 239 mg/dl Borderline Risk 240 mg/dl and greater High Risk Performed By: #### 4 6413, [id number] #### [facility] [address] [place] [address], [place] Cholesterol in HDL [Mass/Vol] 39 mg/dL Normal 23-92 [facility] Comment on above: Order Comment: No: D o not add to previous draw Result Comment: Slig ht variation in normal range could be due to gender and/or age. HDL CHOLESTEROL REFERENCE RANGE: 20 years and older Cardiovascular Risk > or =60 mg/dL Desirable 40 TO 59 mg/dL Low Risk <40 mg/dL High Risk Performed By: #### 4 6413, 12555 #### [facility] [address] [place] [address], [place] Cholesterol in LDL [Mass/Vol] 52 mg/dL Normal 0-130 [facility] Comment on above: Order Comment: No: D o not add to previous draw Result Comment: LDL IS A CALCULATION LDL IS ONLY VALID IF THE TRIG IS LESS THAN 400. Performed By: #### 4 6413, 44369 #### [facility] [address] [place] [address], [place] Cholesterol.total/Ch olesterol in HDL [Mass ratio] 3.4 {ratio} Normal 0.0-4.5 [facility] Comment on above: Order Comment: No: D o not add to previous draw Performed By: #### 4 6413, 16979 #### [facility] [address] [facility]. [address] NON-HDL CHOLESTEROL 94 mg/dL Normal The [facility] Comment on above: Order Comment: No: D o not add to previous draw Performed By: #### 4 6413, 60880 #### [facility] [address] [place], [place] [address] [place] [address] Triglyceride [Mass/Vol] 208 mg/dL High 40-149 [facility] Comment on above: Order Comment: No: D o not add to previous draw Result Comment: TRIG LYCERIDE REFERENCE RANGE: 20 YEARS AND OLDER CARDIOVASCULAR RISK LESS THAN 150 mg/dl LOW RISK 150 TO 199 mg/dl BORDERLINE RISK 200 mg/dl AND GREATER HIGH RISK Performed By: #### 4 6413, 17023 #### [facility] [address] VLDL CHOL 42 mg/dL High 0-40 [facility] Comment on above: Order Comment: No: D o not add to previous draw Performed By: #### 4 6413, 98171 #### [facility] [address] MRI BRAIN W WO CONTRASTon MRI BRAIN W WO CONTRAST [facility] Department of Radiology [address] [place] [id number] Patient Name: EVELINE PLATT : 1980 Sex: F Age: Race: White Pt. Location: [id number] Patient Status: I Ordered Date: 11/17/2018 2:50:00 [...] findings. Electronically signed by:Brendan Mario. Transcribed by: [email or web address], User Resident: WHITNEY GLEASON Electronically Signed by: BRENDAN MARIO @ 11/18/2018 07:22 PM I personally read this/these film(s) with this resident Normal [facility] Comment on above: Order Comment: R/O C VA SEDIMENTATION RATEon 019 SED RATE 13 mm/hr Normal 0-20 [facility] Comment on above: Order Comment: No: D o not add to previous draw Performed By: #### 5 6506 #### [facility] [address] [place] [address], [facility] TOX PANEL URINEon 11-17-2018 50 THC Negative Normal NEGATIVE [facility] Comment on above: Order Comment: No: D o not add to previous draw Performed By: #### 3 1079 #### [facility] [address] [place] [address], [facility] BARBITURATES Negative Normal NEGATIVE The [facility] Comment on above: Order Comment: No: D o not add to previous draw Performed By: #### 3 1079 #### [facility] [address] [place] [address], [facility] Benzodiazepines Ql (U) Negative Normal NEGATIVE [facility] Comment on above: Order Comment: No: D o not add to previous draw Performed By: #### 3 1079 #### [facility] [address] [place] [address], [facility] Cocaine Ql (U) Negative Normal NEGATIVE The [facility] Comment on above: Order Comment: No: D o not add to previous draw Performed By: #### 3 1079 #### [facility] [address] [place] [address], [facility] Methadone Ql (U) Negative Normal NEGATIVE The [facility] Comment on above: Order Comment: No: D o not add to previous draw Performed By: #### 3 1079 #### [facility] [address] [place] [address], [place] MONO AMPHET Negative Normal NEGATIVE The [facility] Comment on above: Order Comment: No: D o not add to previous draw Performed By: #### 3 1079 #### [facility] [address] [place] [address], [place] Opiates Ql (U) Negative Normal NEGATIVE The [facility] Comment on above: Order Comment: No: D o not add to previous draw Performed By: #### 3 1079 #### [facility] [address] [place] [address], [place] Phencyclidine Ql (U) Negative Normal NEGATIVE [facility] Comment on above: Order Comment: No: D o not add to previous draw Performed By: #### 3 1079 #### [facility] [address] [place] [address], [facility] PROPOXYPHENE Negative Normal NEGATIVE The [facility] Comment on above: Order Comment: No: D o not add to previous draw Performed By: #### 3 1079 #### [facility] [address] [place] [address], [facility] TRICYCLICS Negative Normal NEGATIVE [facility] Comment on above: Order Comment: No: D o not add to previous draw Performed By: #### 3 1079 #### [facility] [address] [place] [address], [facility] Vital Signs Date Time Vital Sign Value Performing Clinician Faci lity 12-11-2023 15:49-0400 Body height 154.94 cm [facility] 12-11-2023 15:49-0400 Body mass index (BMI) [Ratio] 39.1 kg/m2 [facility] 12-11-2023 15:49-0400 Body weight 93.89 kg [facility] 12-11-2023 15:49-0400 Diastolic blood pressure 89 mm[Hg] [facility] 12-11-2023 15:49-0400 Heart rate 67 /min [facility] 12-11-2023 15:49-0400 Systolic blood pressure 146 mm[Hg] [facility] Encounters Encounter Date Encounter Type Care Provider Facility Start: 12-11-2023 Patient encounter status [facility] Start: 12-11-2023 End: 12-11-2023 ambulatory [facility] Work Phone: Start: 12-11-2023 End: 12-11-2023 Encounter for general adult medical examination without abnormal findings [facility] Start: 12-11-2023 End: 12-11-2023 Patient encounter procedure [facility] Work Phone: Start: 02-07-2023 End: 02-07-2023 ambulatory Kimberly Botello Other [employer] Other Start: 02-07-2023 Telephone encounter Kimberly Botello [facility] Start: 01-23-2023 (Televisit) Televisit Kimberly Botello [facility] Start: 01-23-2023 End: 01-23-2023 ambulatory Kimberly Botello Other [employer] Other Start: 05-10-2022 End: 05-10-[address] MELLISSA BAILEY . Facility:[facility] Start: 05-21-2021 End: 05-22-[address] KIMBERLY BOTELLO Facility:[facility] Start: 03-25-2021 Adult health examination Kimberly Botello Other [employer] Other Start: 03-25-2021 Problem, abnormal examination Kimberly Botello Other [employer] Other Start: 05-07-2020 End: 05-07-2020 Patient encounter procedure External Provider [facility] Start: 05-07-2020 Results Only External Provider Exter [facility] Start: 11-17-2018 End: 11-21-2018 Evaluation and management of inpatient CRISTINA PAT Facility:[facility] Procedures Date Procedure Procedure Detail Performing Clinician Start: 05-07-2020 End: 05-07-2020 EXTERNAL LAB External Provider Screening for malign ant neoplasm of breast Kimberly Botello Other Plan of Treatment Date Care Activity Detail Author Patient Education Back Flexion S trengthening Exercises [facility] Work Phone: XR Lumbar spine 2 or 3 Views [facility] Immunizations Immunization Date Immunization Notes Care Provider Hayden donniejeet 01-10-2018 influenza virus vaccine, split virus (incl. purified surface antigen) Kimberly Botello Other [facility] [employer] Other 01-10-2018 influenza virus vaccine, unspecified formulation [facility] Payers Date Payer Category Payer Unknown MMO MMO [employer] [id number] 2020-Present PPO [id number] 1980 Unknown [id number] 1980 Unknown [id number] 1980 Unknown [id number] 1959 Unknown [id number] Private Health Insurance [employer] [id number] Private Health Insurance [facility] [id number] Self-pay Self Pay [id number] Social History Date Type Detail Facility Tobacco smoking status NHIS Unknown if ever smoked [facility] Start: 1980 Sex Assigned At Not on file [facility] Sex Assigned At Sex Assigned At [facility] [employer] Other Start: 05-30-2023 Tobacco smoking status NHIS Never smoked tobacco (finding) [facility] Start: 1980 Sex Assigned At Female [facility] NEGATED: Highlighted row [facility] Evaluation note 01-23-2023 Note Date & Type [...] of diseases classified elsewhere (ICD-10 - B96.89) [employer] Other Progress note 07-20-2020 Note Date & Type Note Facility 07-20-2020 Note HNO ID: [id number] Author: Cat Fofana RD Service: ? Author Type: Registered Dietitian Type: Progress Notes Filed: 07/20/2020 12:50 PM Note Text: 12:01- Called pt at this time for scheduled phone appointment. No answer, left message for patient with provider contact information. Cat Fofana RDN, GHADA [facility] Clinical Note 07-20-2020 Note Date & Type Note Facility 07-20-2020 Note Education (NUTRSA) EVELINE PLATT ([id number]) 1980 F Date Time Provider Department 07/20/20 [...] Encounter Status:Closed by CAT FOFANA on 07/20/20 [facility] Clinical Note 06-29-2020 Note Date & Type Note Facility 06-29-2020 Note Education (NUTRSA) EVELINE PLATT ([id number]) 1980 F Date Time Provider Department 06/29/20 [...] 4 course- meat/pot/corn/non-starchy vegetable Snack(s): evening snacker- 9-027p something sweet Fluids: 3-24 oz water during the day. At home 48oz water. Nutrition Diagnosis: Problem, Etiology and Signs/Symptoms: Overweight/Obesity related to excessive energy intake as evidenced by BMI 39.2. Nutrition Intervention: -aim for 3 meals + snack if needed -use Moy Univer plate for dinner -ok to use meal replacement for lunch -ok to have snack of 1 CHO + Pro for breakfast -continue drinking at least 64 oz non-caffeine containing beverages -begin label reading -ok to use gama such as cheerapp or Info to take caloric intake if desired -call [...] Estimated kilocalorie needs: 1854 kilocalories determined by Love-St. Jeor x 1.2 Estimated protein needs: 75-94 [...] nutrition counseling for obesity. 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 [facility] Progress note 06-29-2020 Note Date & Type Note Facility 06-29-2020 Note HNO ID: [id number] Author: Cat Fofana Service: ? Author Type: [...] 4 course- meat/pot/corn/non-starchy vegetable Snack(s): evening snacker- 9-310p something sweet Fluids: 3-24 oz water during the day. At home 48oz water. Nutrition Diagnosis: Problem, Etiology and Signs/Symptoms: Overweight/Obesity related to excessive energy intake as evidenced by BMI 39.2. Nutrition Intervention: -aim for 3 meals + snack if needed -use Moy Univer plate for dinner -ok to use meal replacement for lunch -ok to have snack of 1 CHO + Pro for breakfast -continue drinking at least 64 oz non-caffeine containing beverages -begin label reading -ok to use gama such as cheerapp or Info to take caloric intake if desired -call [...] Estimated kilocalorie needs: 1854 kilocalories determined by Love-St. Jeor x 1.2 Estimated protein needs: 75-94 [...] nutrition counseling for obesity. 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 [facility] Progress note 06-24-2020 Note Date & Type Note Facility 06-24-2020 Note HNO ID: [id number] Author: Blake Patel Service: ? Author Type: Physician Type: Progress Notes Filed: 06/25/2020 6:20 AM Note Text: NAME: Eveline Platt CLINIC NO.: [id number] DATE OF SERVICE: June 24, 2020 Some [...] also endorses heavy menses. 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 Per HPI and [...] Protein, Total (g/ (more content not included)... [facility] Progress note 05-13-2020 Note Date & Type Note Facility 05-13-2020 Note HNO ID: [id number] Author: Blake Patel Service: ? Author Type: Physician Type: Progress Notes Filed: 05/13/2020 12:21 PM Note Text: NAME: Eveline Platt NO.: [id number] DATE OF SERVICE: May 13, 2020 Referring [...] also endorses heavy menses. 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 Per HPI and [...] diagnosis) Plan: CBC + DIFF (FOR REMOTE [facility] USE), COMP METABOLIC PANEL, FERRITIN BLD, IRON [...] Mother Brain tumor Blake Patel MD, CPE [place], [place] CC: Kimberly Botello MD (DrC) [address] [facility] [address] [facility] Evaluation note Note Date & Type Note Facility Evaluation note No Information [facility] [employer] Other Evaluation note Note Date & Type Note Facility Evaluation note Diagnosis Onset Date DDD (degenerative disc disease), lumbar acute SI joint arthritis acute Wellness examination acute [facility] Work Phone: History general Narrative - Reported [...] History knee surgery Hospitalization History see above [employer] Other Summary Purpose Family History Relationship Condition Age at Onset Recorded Date/T laurita father Hypertension Unknown Diabetes mellitus Unknown Advance Directives Advance Directive Response Recorded Date/ Time Advance Directives No August 25 0 9:06am Hospital Course Note MR#: [id number] [facility] Pt. Name: Eveline Platt Admitted: 11/17/2018 Discharged: [...] a pleasant 38-year-old female, who presented to [facility] on account of left acute visual loss and the patient was brought to the [facility] for further evaluation and management. Has had an extensive evaluation done including ESR, which is normal along (more content not included)... Note [facility] SURGERY Clinical Discharge Summary PERSON INFORMATION Name EVELINE PLATT Age 38 Years 1980 Sex FEMALE Language Maltese PCP Rosmery ALVA, Kimberly Peñaloza Marital Status Med Service Ambulatory Surgery Acct# Arrival 01/15/2019 08:48:00 Visit Reason SURGERY-RIGHT SALPINGO-OOPHORECTOMY AND DIAGNOSTIC LAPAROSCOPY Acuity LOS 043 00:30 Address: [address] [place] [id number] Comment: PROVIDER INFORMATION VITALS INFORMATION Vital Sign Triage Latest Temp Oral Temp Temporal Temp Intravascular Temp Axillary Temp Rectal 02 Sat 100 % 100 % Respiratory Rate Peripheral Pulse Rate Apical Heart Rate Blood Pressure / 93 mmHg / 81 mmHg Comment: MEDICAL INFORMATION Allergy Info: No known allergies Prescriptions Given: acetaminophen-hydrocodone (Minto 5 mg-325 mg oral tablet) 1 tab(s) [...] section and content) DATE CREATED AUTHOR 12/10/2018 [facility] DATE CREATED AUTHOR AUTHOR'S ORGANIZ ATION 01/22/2019 [facility] DATE CREATED AUTHOR AUTHOR'S ORGANIZ ATION 04/16/2021 [facility] DATE CREATED AUTHOR AUTHOR'S ORGANIZ ATION 05/13/2022 [facility] Comments (unrecognize d section and content) In the event this informatio n is protected by the Federal Confidentiality of Alcohol and Drug Abuse Patient Records regulations: The Federal rules restrict any use of the information to criminally investigate or prosecute any alcohol or drug abuse patient.[facility] the event this information is protected by the Federal Confidentiality of Alcohol and Drug Abuse Patient Records regulations: The Federal rules restrict any use of the information to criminally investigate or prosecute any alcohol or drug abuse patient.[facility] the event this information is protected by the Federal Confidentiality of Alcohol and Drug Abuse Patient Records regulations: The Federal rules restrict any use of the information to criminally investigate or prosecute any alcohol or drug abuse patient.[facility] the event this information is protected by the Federal Confidentiality of Alcohol and Drug Abuse Patient Records regulations: The Federal rules restrict any use of the information to criminally investigate or prosecute any alcohol or drug abuse patient.[facility] REASON FOR VISIT (unrecogniz ed section and content) Cough- [phone] Care Teams (unrecognized sec tion and content) [...] BE BASED ON THE PRIMARY CLINICAL RECORDS. [facility]. provides no warranty or guarantee of the accuracy or completeness of information in this document.
--- NOTE | 2024-02-09 08:42 | PC.NURSE ---
pt in ER a few hrs ago for epistaxis without injury. no blood thinners. Pt states she noticed some blood coming from R eye where rhino rocket is placed and that she was feeling so much pressure in eye and head. Dr Hale in room. Removed 2ml from rhino rocket and pt states she feels a noticeable difference in pressure
== END 2024-02-09 08:45 | disposition home or self-care (01) ==
PROVIDERS: Emergency Provider Emergency Medicine; PCP Family Medicine
DX: R04.0 Epistaxis (principal)
CPT/HCPCS: 99281

== ENCOUNTER 2024-02-12 12:10 | Emergency (ER) | payer OTHER, SELFPAY ==
[2024-02-12 12:14] VITALS: BP 157/92; PULSE 72; TEMP 36.6; O2SAT 99; BMI 39.1
--- NOTE | 2024-02-12 12:18 | PC.NURSE ---
Rhino rocket in place to right nare, no bleeding at site.
--- NOTE | 2024-02-12 13:25 | ED_ITS ---
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 Patient has already been to the ER twice previously. Patient had a Rhino Rocket placed initially. Patient is stated she was having a lot of pressure to the right side of her face, and has some blood coming out of her eye patient then came back to the ER a second time, patient had 2 cc of air removed from the balloon. Patient went home, and then patient was told to come back To the ER today, on Monday to have the, Rhino Rocket removed. Patient's had no additional bleeding over the weekend. No other acute complaints. 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 Patient stated that she had sinus symptoms, was taking a lot of allergy medication and blowing her nose a lot, and that is when her nose started bleeding. She was not picking it, no trauma All systems are negative except as noted/marked. All systems reviewed and otherwise negative. Nurses note and vital signs reviewed and patient is not hypoxic. General: The patient appears well and in no apparent distress. Patient is resting comfortably on cart. Patient is not toxic, lethargic, or listless Skin: Warm, dry, no pallor noted. There is no rash noted. No petechiae, purpura. Head: Normocephalic, atraumatic Eye: Normal conjunctiva, no drainage, EOMI. PERRL Ears, Nose, Mouth, and Throat: oral mucosa is moist. Nares patent. Mouth without vesicles. Patient has Rhino Rocket in place to the right nostril. Patient has no blood noted to the right nostril. No blood noted Cardiovascular: Regular Rate and Rhythm, no murmur, gallop, rub Respiratory: Patient is in no distress, no accessory muscle use, lungs are clear to auscultation, no wheezing, rales or rhonchi Musculoskeletal: Patient has full range of motion of all of the extremities, no motor, sensory, or focal neurological deficits Neurological: A&O x4, normal speech Psychiatric: Cooperative Related Data Home Medications ?Medication ?Instructions ?Recorded ?Confirmed dexlansoprazole 60 mg 60 mg PO QDAY 12/03/22 12/03/22 capsule,biphase delayed release metoprolol succinate 50 mg 50 mg PO QDAY 12/03/22 02/09/24 tablet,extended release 24 hr Previous Rx's ?Medication ?Instructions ?Recorded amoxicillin 500 mg capsule 500 mg PO TID 3 days #9 caps 02/09/24 Allergies Allergy/AdvReac Type Severity Reaction Status Date / Time No Known Drug Allergies Allergy Verified 02/12/24 12:14 Opioid HPI Opioid Management Most Recent Opioid Data: No Data to Display [facility] Social History Smoking status: Current every day smoker Little interest or pleasure in doing things: not at all Feeling down, depressed, or hopeless: not at all Exam Constitutional Vital Signs, click to edit/add: Last Vital Signs Temp 97.8 F 02/12/24 12:14 Pulse 72 02/12/24 12:14 Resp 18 02/12/24 12:14 BP 157/92 H 02/12/24 12:14 Pulse Ox 99 02/12/24 12:14 O2 Del Method Room Air 02/12/24 12:14 Course Vital Signs Vital signs: Vital Signs Temperature 97.8 F 02/12/24 12:14 Pulse Rate 72 02/12/24 12:14 Respiratory Rate 18 02/12/24 12:14 Blood Pressure 157/92 H 02/12/24 12:14 Pulse Oximetry 99 02/12/24 12:14 Oxygen Delivery Method Room Air 02/12/24 12:14 Temperature 97.8 F 02/12/24 12:14 Pulse Rate 72 02/12/24 12:14 Respiratory Rate 18 02/12/24 12:14 Blood Pressure 157/92 H 02/12/24 12:14 Pulse Oximetry 99 02/12/24 12:14 Oxygen Delivery Method Room Air 02/12/24 12:14 Medical Decision Making MDM Narrative Medical decision making narrative: Patient had 6 cc of normal saline slowly flush into the right nostril. All the air was taken out of the Rhino Rocket to the right nostril several times to ensure the ear was completely out. Patient then slowly had the Rhino Rocket removed from the right nostril. No bleeding did occur. Patient was observed for 20 minutes. No bleeding occurred, no blood noted to the right nostril or the posterior pharynx at discharge. Patient was educated on using normal saline sprays to the right nostril 3-4 times a day to help keep mucous membranes moist. Patient was referred to ENT. Patient was shown how to hold firm pressure for 20 minutes if bleeding starts again, and if that does not stop the bleeding to return back to the ER. Patient understands that, no questions at discharge. Discharge Plan Discharge Stand Alone Forms: Work/School Release Chief Complaint: Recheck/Abnormal Lab/Rx Clinical Impression: Encounter for removal of nasal packing Patient Disposition: Home, Self-Care Time of Disposition Decision: 13:40 Condition: Fair Prescriptions / Home Meds: No Action dexlansoprazole 60 mg capsule,biphase delayed releas 60 mg PO QDAY metoprolol succinate 50 mg tablet extended release 24 hr 50 mg PO QDAY amoxicillin 500 mg capsule 500 mg PO TID 3 Days Qty: 9 0RF Print Language: Croatian Instructions: Nosebleed (ED) Additional Instructions: If bleeding starts again, hold pressure as shown at bedside very firm for 20 minutes. If bleeding continues after holding firm pressure for 20 minutes, return back to the ER for reevaluation. Use [id number] [place] mist or saline spray to nostrils several times a day to help keep mucous membranes moist and prevent mucous membrane cracking or rebleeding. Follow-up with ENT as recommended. Referrals: Michelle Ahumada MD [Physician] - 1 week Kimberly Boles MD [Primary Care Provider] - 1 week
--- OUTSIDE RECORDS SUMMARY | 2024-02-12 14:13 | XMS_ITS | CCD ---
Author Organization [facility] Care Team Providers Care Inker And [employer]pa[employer] Name Role Phone CRISTINA RAMIREZ Attending Unavailable [...] 3:52pm Start: 06-02-2022 take 1 capsule by [facility] every twenty-four hours Dexilant 60 MG 1 [...] 1:42pm Start: 08-24-2019 take 1 tablet by [facility] every twelve hours at mealtime as [...] unspecified] Episodic Other aftercare (1 source) Other intermediate (current) drug therapy; Translations: [OTH GROUP HOME CURRENT DRUG THERAPY] Onset: 05-12-2022 Episodic [...] 05-21-2021 BASO # 0.0 103/ul Normal 0.0-0.1 [facility] Comment on above: Performed By: #### C BC #### [facility] [address] [address] [address] Da Graham Basophils/100 WBC (Bld) 0.3 % Normal 0.2-2.0 [facility] Comment on above: Performed By: #### C BC #### [facility] [address] [address] [address] Da Graham EO # 0.2 103/ul Normal 0.0-0.7 [facility] Comment on above: Performed By: #### C BC #### [facility] [address] [address] [address] Da Graham Eosinophils/100 WBC (Bld) 2.3 % Normal 0.9-7.0 [facility] Comment on above: Performed By: #### C BC #### [facility] [address] [address] [address] Da Graham Erythrocyte distribution width (RBC) [Ratio] 11.5 % Normal 11.0-15.0 [facility] Comment on above: Performed By: #### C BC #### [facility] [address] [place] [address] Dr. Da Graham Hematocrit (Bld) [Volume fraction] 41.0 % Normal 36.0-48.0 [facility] Comment on above: Performed By: #### C BC #### [facility] [address] [address] [address] Da Graham Hemoglobin (Bld) [Mass/Vol] 13.5 g/dL Normal 12.0-16.0 [facility] Comment on above: Performed By: #### C BC #### [facility] [address] [address] [address] Da Graham IG # 0.04 10e3/ul Critically high 0.00-0.03 [facility] Comment on above: Performed By: #### C BC #### [facility] [address] [address] [address] Da Graham IG % 0.5 % Normal 0.0-0.5 [facility] Comment on above: Performed By: #### C BC #### [facility] [address] [place] [address] Dr. Da Graham LYMPH # 1.9 103/ul Normal 1.2-3.8 [facility] Comment on above: Performed By: #### C BC #### [facility] [address] [place] [address] Dr. Da Graham Lymphocytes/100 WBC (Bld) 25.2 % Normal 20.5-60.0 [facility] Comment on above: Performed By: #### C BC #### [facility] [address] [place] [address] Dr. Da Graham MANUAL DIFF REQ NO Normal [facility] Comment on above: Performed By: #### C BC #### [facility] [address] [place] [address] Dr. Da Graham MCH (RBC) [Entitic mass] 31.6 pg Normal 26.7-34.0 [facility] Comment on above: Performed By: #### C BC #### [facility] [address] [place] [address] Dr. Da Graham MCHC (RBC) [Mass/Vol] 32.9 g/dL Normal 29.9-35.2 [facility] Comment on above: Performed By: #### C BC #### [facility] [address] [place] [address] Dr. Da Graham MCV (RBC) [Entitic vol] 96.0 fL Normal 81.0-99.0 [facility] Comment on above: Performed By: #### C BC #### [facility] [address] [place] [address] Dr. Da Graham MONO # 0.6 103/ul Normal 0.3-0.8 [facility] Comment on above: Performed By: #### C BC #### [facility] [address] [place] [address] Dr. Da Graham Monocytes/100 WBC (Bld) 7.7 % Normal 1.7-12.0 [facility] Comment on above: Performed By: #### C BC #### [facility] [address] [place] [address] Dr. Da Graham NEUT # 4.8 103/ul Normal 1.4-6.5 [facility] Comment on above: Performed By: #### C BC #### [facility] [address] [place] [address] Dr. Da Graham Neutrophils/100 WBC (Bld) 64.0 % Normal 43.0-75.0 [facility] Comment on above: Performed By: #### C BC #### [facility] [address] [place] [address] Dr. Da Graham Platelet mean volume (Bld) [Entitic vol] 11.4 fL Normal 9.5-13.5 [facility] Comment on above: Performed By: #### C BC #### [facility] [address] [place] [address] Dr. Da Graham PLT 247 103/ul Normal 150-450 [facility] Comment on above: Performed By: #### C BC #### [facility] [address] [place] [address] Dr. Da Graham RBC 4.27 106/ul Normal 4.20-5.40 [facility] Comment on above: Performed By: #### C BC #### [facility] [address] [place] [address] Dr. Da Graham WBC 7.5 103/ul Normal 4.0-11.0 [facility] Comment on above: Performed By: #### C BC #### [facility] [address] [address] [address] Da Graham FERRITINon 05-21-2021 Ferritin [Mass/Vol] 132.0 ng/mL Normal 6.2-137.0 [facility] Comment on above: Performed By: #### F ERR #### [facility] [address] [place] [address] Dr. Da Graham PROF CHEM 8 (BAS METB)on Anion gap [Moles/Vol] 11.2 mmol/L Normal [facility] Comment on above: Performed By: #### B MP #### [facility] [address] [place] [address] Dr. Da Graham Calcium [Mass/Vol] 8.0 mg/dL Critically low 8.4-10.2 [facility] Comment on above: Performed By: #### B MP #### [facility] [address] [place] [address] Dr. Da Graham Chloride [Moles/Vol] 104 mmol/L Normal 98-107 [facility] Comment on above: Performed By: #### B MP #### [facility] [address] [place] [address] Dr. Da Graham CO2 [Moles/Vol] 27.4 mmol/L Normal 22.0-30.0 [facility] Comment on above: Performed By: #### B MP #### [facility] [address] [place] [address] Dr. Da Graham Creatinine [Mass/Vol] 0.66 mg/dL Normal 0.52-1.04 [facility] Comment on above: Performed By: #### B MP #### [facility] [address] [place] [address] Dr. Da Graham EGFR-AF MARTINIQUAIS >60 Normal >=60 [facility] Comment on above: Performed By: #### B MP #### [facility] [address] [place] [address] Dr. Da Graham EGFR-NON AF MARTINIQUAIS >60 Normal >=60 [facility] Comment on above: Performed By: #### B MP #### [facility] [address] [address] [address] Da Graham Glucose [Mass/Vol] 129 mg/dL Critically high 74-106 [facility] Comment on above: Performed By: #### B MP #### [facility] [address] [address] [address] Da Graham Potassium [Moles/Vol] 3.6 mmol/L Normal 3.4-5.0 [facility] Comment on above: Performed By: #### B MP #### [facility] [address] [address] [address] Da Graham Sodium [Moles/Vol] 139 mmol/L Normal 137-[address] [facility] Comment on above: Performed By: #### B MP #### [facility] [address] [address] [address] Da Graham Urea nitrogen [Mass/Vol] 10.0 mg/dL Normal 7.0-17.0 [facility] Comment on above: Performed By: #### B MP #### [facility] [address] [address] [address] Da Graham Urea nitrogen/Creatinine [Mass ratio] 15.2 mg/mg Normal [facility] Comment on above: Performed By: #### B MP #### [facility] [address] [address] [address] Da Luo 09[facility]16-2020 [facility] EVELINE PLATT ([id number]) 1980 F Date Time Provider Department 09/16/20 [...] Encounter Status:Closed by ALYCIA FELIX on 09/17/20 [facility] CNOVSPon 06-24-2020 CNOVSP Visit (SP) Office ([facility]) EVELINE PLATT ([id number]) 1980 F Date Time Provider Department 06/24/20 2:15 PM BLAKE PATEL During your visit today, we recorded the following information about you: Temperature Pulse Respiration Blood pressure 97.4 degrees 98/minute 16/minute 135/68 Weight Height Last Period 94.1 kg 1.549 m 05/25/20 Blake Patel MD 06/25/2020 6:20 AM Signed NAME: Eveline Platt CLINIC NO.: [id number] DATE OF SERVICE: June 24, 2020 Some elements in this clinic note that are critical to medical decision making have been carefully reviewed and included from a prior clinic note dated: May 13, 2020 Referring Provider: Kimberly Botelol Additional Clinicians involved in Eveline Platt's care: [...] also endorses heavy menses. 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 Per HPI and [...] (mg/dL) Date (more content not included)... Normal [facility] Comp Metabolic Panelon 06-24 Albumin [Mass/Vol] 4.5 g/dL Normal 3.9-4.9 [facility] ALP [Catalytic activity/Vol] 86 U/L Normal 34-[address] [facility] ALT [Catalytic activity/Vol] 27 U/L Normal 7-[address] [facility] Anion gap [Moles/Vol] 7 mmol/L Low 9-[address] [facility] AST [Catalytic activity/Vol] 22 U/L Normal 13-[address] [facility] Bilirubin [Mass/Vol] 0.2 mg/dL Normal 0.2-1.3 [facility] Calcium [Mass/Vol] 9.0 mg/dL Normal 8.5-10.2 [facility] Chloride [Moles/Vol] 106 mmol/L High 97-105 [facility] CO2 [Moles/Vol] 25 mmol/L Normal 22-[address] [facility] Creatinine [Mass/Vol] 0.64 mg/dL Normal 0.58-0.[address] [facility] eGFR- Amer. >60 Normal [facility] eGFR-All Other Races >60 Normal [facility] Comment on above: Result Comment: eGFR (Estimated [...] GFR. Glucose [Mass/Vol] 101 mg/dL High 74-99 [facility] Comment on above: Result Comment: The Indian Diabetes Association (ADA) provides guidance for cutoff [...] Standards of Medical Care in Diabetes 2016, Indian Diabetes Association. Diabetes Care. 2016.39(Suppl 1). Potassium [Moles/Vol] 3.9 mmol/L Normal 3.7-5.[address] [facility] Protein [Mass/Vol] 7.1 g/dL Normal 6.3-8.0 [facility] Sodium [Moles/Vol] 138 mmol/L Normal 136-144 [facility] Urea nitrogen [Mass/Vol] 10 mg/dL Normal 7-[address] [facility] Ferritinon 06-24-2020 Ferritin [Mass/Vol] 64.2 ng/mL Normal 14.7-205.1 [place] Comment on above: Performed By: #### F ERR, IRON #### [facility] [email or web address] [address] [place] [address] Iron and TIBCon 06-24-2020 Iron [Mass/Vol] 43 ug/dL Normal 41-[address] [facility] Comment on above: Performed By: #### F ERR, IRON #### [facility] [address], [place] [address] TIBC 305 ug/dL Normal 232-[address] [facility] Comment on above: Performed By: #### F ERR, IRON #### [facility] [email or web address] [address], [place] [address] Transferrin Saturatn 14 % Low 15-57 [facility] Comment on above: Performed By: #### F ERR, IRON #### [facility] [address], [place] [address] Remote CBCDIF (for [facility] use o nly)on 06-24-2020 Abs Baso <0.03 Normal <0.[address] [facility] Abs Dodge 0.76 k/uL Normal <0.[address] [facility] Abs Neut 4.47 k/uL Normal 1.45-7.[address] [facility] Absolute nRBC <0.01 Normal <0.[address] [facility] Basophils/100 WBC (Bld) 0.3 % Normal [facility] DTYPE Auto Diff Normal [facility] Eosinophils (Bld) [#/Vol] 0.13 10*3/uL Normal <0.[address] [facility] Eosinophils/100 WBC (Bld) 1.9 % Normal [facility] Erythrocyte distribution width (RBC) [Ratio] 13.2 % Normal 11.5-15.[address] [facility] Hematocrit (Bld) [Volume fraction] 40.6 % Normal 36.0-46.[address] [facility] Hemoglobin (Bld) [Mass/Vol] 13.1 g/dL Normal 11.5-15.[address] [facility] Lymphocytes (Bld) [#/Vol] 1.60 10*3/uL Normal 1.00-4.[address] [facility] Lymphocytes/100 WBC (Bld) 22.9 % Normal [facility] MCH 29.4 pG Normal 26.0-34.[address] [facility] MCHC (RBC) [Mass/Vol] 32.3 g/dL Normal 30.5-36.[address] [facility] MCV (RBC) [Entitic vol] 91.2 fL Normal 80.0-100.[address] [facility] Monocytes/100 WBC (Bld) 10.9 % Normal [facility] Neutrophils/100 WBC (Bld) 64.0 % Normal [facility] NRBCs 0.0 /100 WBC Normal [address] [facility] Platelet mean volume (Bld) [Entitic vol] 11.5 fL Normal 9.0-12.[address] [facility] Platelets (Bld) [#/Vol] 235 10*3/uL Normal 150-[address] [facility] RBC (Bld) [#/Vol] 4.45 10*6/uL Normal 3.90-5.20 [facility] WBC (Bld) [#/Vol] 6.98 10*3/uL Normal 3.70-11.00 [place] CNOVSPon 05-13-2020 CNOVSP Visit (SP) Office ([facility]) EVELINE PLATT ([id number]) 1980 F Date Time Provider Department 05/13/20 11:15 AM BLAKE PATEL During your visit today, we recorded the following information about you: Temperature Pulse Respiration Blood pressure 97.3 degrees 79/minute 18/minute 142/87 Weight Height 92.6 kg 1.549 m Blake Patel MD 05/13/2020 12:21 PM Signed NAME: Eveline Platt CLINIC NO.: [id number] DATE OF SERVICE: May 13, 2020 Referring [...] also endorses heavy menses. 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 Per HPI and [...] diagnosis) Plan: CBC + DIFF (FOR REMOTE [facility] USE), COMP METABOLIC PANEL, FERRITIN [...] Mother Brain tumor Blake Patel MD, CPE [facility] Maricarmen (more content not included)... Normal [facility] Comp Metabolic Panelon 05-13 Albumin [Mass/Vol] 4.4 g/dL Normal 3.9-4.9 [facility] ALP [Catalytic activity/Vol] 81 U/L Normal 34-[address] [facility] ALT [Catalytic activity/Vol] 38 U/L Normal 7-[address] [facility] Anion gap [Moles/Vol] 7 mmol/L Low 9-[address] [facility] AST [Catalytic activity/Vol] 29 U/L Normal 13-[address] [facility] Bilirubin [Mass/Vol] 0.3 mg/dL Normal 0.2-1.3 [facility] Calcium [Mass/Vol] 9.2 mg/dL Normal 8.5-10.2 [facility] Chloride [Moles/Vol] 105 mmol/L Normal 97-105 [facility] CO2 [Moles/Vol] 27 mmol/L Normal 22-[address] [facility] Creatinine [Mass/Vol] 0.69 mg/dL Normal 0.58-0.[address] [facility] eGFR- Amer. >60 Normal [facility] eGFR-All Other Races >60 [facility] Comment on above: Result Comment: eGFR (Estimated [...] GFR. Glucose [Mass/Vol] 127 mg/dL High 74-99 [facility] Comment on above: Result Comment: The Indian Diabetes Association (ADA) provides guidance for cutoff [...] Standards of Medical Care in Diabetes 2016, Indian Diabetes Association. Diabetes Care. 2016.39(Suppl 1). Potassium [Moles/Vol] 4.2 mmol/L Normal 3.7-5.[address] [facility] Protein [Mass/Vol] 7.1 g/dL Normal 6.3-8.0 [facility] Sodium [Moles/Vol] 139 mmol/L Normal 136-144 [facility] Urea nitrogen [Mass/Vol] 9 mg/dL Normal 7-[address] [facility] Ferritinon 05-13-2020 Ferritin [Mass/Vol] 45.5 ng/mL Normal 14.7-205.1 [place] Comment on above: Performed By: #### F ERR, IRON #### [facility] [email or web address] [address] [address] Iron and TIBCon 05-13-2020 Iron [Mass/Vol] 85 ug/dL Normal 41-[address] [facility] Comment on above: Performed By: #### F ERR, IRON #### [facility] [email or web address] [address] [place] [address] TIBC 317 ug/dL Normal 232-[address] [facility] Comment on above: Performed By: #### F ERR, IRON #### [facility] [address] [place] [phone] Transferrin Saturatn 27 % Normal 15-57 [facility] Comment on above: Performed By: #### F ERR, IRON #### [facility] [address] [place] [address] Remote CBCDIF (for [facility] use o nly)on 05-13-2020 Abs Baso <0.03 Normal <0.[address] [facility] Abs Dodge 0.64 k/uL Normal <0.[address] [facility] Abs Neut 3.85 k/uL Normal 1.45-7.[address] [facility] Absolute nRBC <0.01 Normal <0.[address] [facility] Basophils/100 WBC (Bld) 0.3 % Normal [facility] DTYPE Auto Diff Normal [facility] Eosinophils (Bld) [#/Vol] 0.19 10*3/uL Normal <0.[address] [facility] Eosinophils/100 WBC (Bld) 3.3 % Normal [facility] Erythrocyte distribution width (RBC) [Ratio] 13.4 % Normal 11.5-15.[address] [facility] Hematocrit (Bld) [Volume fraction] 38.8 % Normal 36.0-46.[address] [facility] Hemoglobin (Bld) [Mass/Vol] 12.7 g/dL Normal 11.5-15.[address] [facility] Lymphocytes (Bld) [#/Vol] 1.05 10*3/uL Normal 1.00-4.[address] [facility] Lymphocytes/100 WBC (Bld) 18.2 % Normal [facility] MCH 29.5 pG Normal 26.0-34.[address] [facility] MCHC (RBC) [Mass/Vol] 32.7 g/dL Normal 30.5-36.[address] [facility] MCV (RBC) [Entitic vol] 90.2 fL Normal 80.0-100.[address] [facility] Monocytes/100 WBC (Bld) 11.1 % Normal [facility] Neutrophils/100 WBC (Bld) 67.1 % Normal [facility] NRBCs 0.0 /100 WBC Normal [address] [facility] Platelet mean volume (Bld) [Entitic vol] 11.2 fL Normal 9.0-12.[address] [facility] Platelets (Bld) [#/Vol] 240 10*3/uL Normal 150-[address] [facility] RBC (Bld) [#/Vol] 4.30 10*6/uL Normal 3.90-5.20 [place] WBC (Bld) [#/Vol] 5.77 10*3/uL Normal 3.70-11.00 [place] Coding Summaryon 01-22-2019 Coding Summary CODING DATE: 01/22/[address] 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 [...] PROC APC STAT DESCRIPTION DOCTOR NAME DATE [id number] J1 Laparoscopy, surgical; Eliezer Torres DO with removal of adnexal structures (partial or total oophorectomy and/or salpingectomy) RT Right side (used to identify procedures performed on the right side of the body) [id number] J1 Laparoscopy, surgical; Eliezer Torres DO with [...] Awilda Edouard Date Saved: 01/22/2019 10:54 am [facility] Lab - AP Resultson 9 Lab - AP Results [id number] .00OTGTIFF [facility] MAGR Postoperative Recordon 01-21-2019 MAGR Postoperative Record MAGR Phase II Record Summary Primary Physician: Eliezer Torres DO Finalized Date/Time: 01/21/19 13:15:02 Pt. Name: EVELINE PLATT/Sex: 1980 FEMALE Med Rec #: [id number] Physician: Eliezer Torres DO Financial #: [id number] Pt. Type: D Room/Bed: / Admit/Disch: 01/15/19 [...] Signed By: Brittany Soler RN 01/21/19 13:15 [facility] Pathology Sendout Teston Pathology Send Out. See Report [facility] Comment on above: Order Comment: Right fallopian tube and right ovaryPost op Dx: Pelvic pain Performed By: #### 2 [id number] ####[facility] (DEFAULT)[address] [place] [address] History and Physicalon 01-17 History and Physical [id number] - Surgeon/P hysicianon 01-17-2019 Operative Report - Surgeon/Physician [id number] .00[facility] Provider Orderson 01-17-2019 Provider Orders [id number] [place] [address] Consent Formson 01-16-2019 Consent Forms [id number] [place] [address] MAGR Intraoperative Recordon 01-16-2019 MAGR Intraoperative Record MAGR Intra-Op Record Summary Primary Physician: Eliezer Torres DO Finalized Date/Time: 01/16/19 15:11:50 Pt. Name: EVELINE PLATT/Sex: 1980 FEMALE Med Rec #: [id number] Physician: Eliezer Torres DO Financial #: [id number] Pt. Type: D Room/Bed: / Admit/Disch: 01/15/19 [...] Entry 2 Entry 3 Case Attendee Eliezer Torrse DO, Tray Frias RN, Bianka Role Performed Surgeon - Primary Anesthesiologist of Automatic Drill Operator Record Time In 01/15/19 11:36:00 01/15/19 11:36:00 [...] Kidd Role Performed Scrub Personnel Scrub Personnel Financial Planning Adviser Time In 01/15/19 11:36:00 01/15/19 11:36:00 01/15/19 11:36:00 Time Out 01/15/19 13:26:00 01/15/19 13:26:00 01/15/19 13:26:00 Procedure Tubal Ligation Tubal Ligation Tubal Ligation Laparoscopic Laparoscopic Laparoscopic Last Modified By: Rodriguez LEE, Bianka Frias RN, Bianka Meyer RN 01/15/19 13:34:13 01/15/19 13:34:13 01/15/19 13:32:06 Entry 7 Case Attendee Brittany Guthrie RN Role Performed Automatic Drill Operator Time In 01/15/19 11:36:00 Time Out 01/15/19 [...] Uncrossed? Yes Press Points Checked Yes Additional [place] Pad Positioning Device Safety Strap Information Outcome [...] Count Time 01/15/19 11:50:00 Performed By Zev TRAY SERVICE WORKERGregi Counts Verification Final Counts Items Included in Sponges, Sharps Final Count Method Manual Final Count Final Count Status Correct Final Counts Bianka Frias RN, Performed By Zev TRAY SERVICE WORKERZamzam Final Count Time 01/15/19 13:10:00 Surgeon notified [...] Flow Rate 10 L/min Last Modified By: Biakna Frias RN 01/16/19 15:09:31 Case Comments Finalized By: Bianka Frias RN Document Signatures Signed By: Bianka Frias RN 01/16/19 15:11 Normal [facility] Operative Report - Surgeon/P sourav [...] years ago from a laparoscopy. Next, an [place] uterine manipulator was advanced into the cervix [...] a subcuticular manner on the skin. The [place] uterine manipulator was then removed from the [...] stable condition. Eliezer Torres DO JOB #: [id number] [Electronically Signed on: 01/21/2019 09:10 EST] Eliezer Torres DO [Verified on: 01/21/2019 09:10 EST] Eliezer Torres DO [Transcribed on: 01/16/2019 10:53 EDT] [facility] Telemetry Stripson 9 Telemetry Strips [id number] .00OTGTIFF [facility] Anesthesia Noteon 01-15-2019 Anesthesia Note Patient: EVELINE PLATT Age: 38 years Sex: FEMALE : 1980 Associated Diagnoses: None Author: Tray Gill MD Preoperative Information Anesthesia history: Patient history: No difficult intubation, No malignant hyperthermia. Family history: No malignant hyperthermia. Review of Systems Respiratory: No shortness of breath, No apnea. Cardiovascular: No known [place], No chest pain. Gastrointestinal: Heartburn. Health Status Allergies: Allergic Reactions (All) No known allergies Current medications: Home Medications (1) Active pantoprazole 40 mg oral delayed release tablet 40 mg = 1 tab(s), PO, BID Problem list (past medical history): All Problems Right ovarian cyst / SNOMED CT 849036990 / Confirmed DDD (degenerative disc disease), lumbosacral / SNOMED CT 778521887 / Confirmed Eye symptom / SNOMED CT 7622265261 / Confirmed GERD (gastroesophageal reflux disease) / SNOMED CT 410993592 / Confirmed Resolved: Chest pain / SNOMED CT 35527518 Resolved: Palpitations / SNOMED CT 943168718 Canceled: DDD (degenerative disc disease), thoracic / SNOMED CT 209238641 Histories Family History: Esophagus Mother Comments: 04/26/2017 16:57 Aicha Wasserman RN esophagus extra long Kidney Brother Comments: 04/26/2017 16:57 Aicha Wasserman RN kidney transplant Thyroid disease Mother Brother Diabetes mellitus type I Father Brain tumor Mother High blood pressure Father Brother Osteoarthritis Mother Coronary heart disease Father Procedure history: Polypectomy of cervix (711861396) on 04/26/2017 at 36 Years. Comments: 01/02/2019 13:19 Haritha Barger RN ovarian cyst. Patient stated laceration under cervix also with repair Dilation and curettage (27723607) on 03/20/2010 at 29 Years. Comments: 04/26/2017 16:00 ANATOLIY MorenoAicha silvestre hemorrhaged 1 hour after procedure was done Dilation and curettage (92524614). Arthroscopy of knee (245599215). Comments: 01/02/2019 13:00 Haritha Barger RN left [...] U Preg Negative . Laboratory Results Plan [employer]#( A) physical status classification: Class II. Anesthetic Preoperative Plan Anesthesia: General. . Anesthetic plan, risks, benefits, and alternatives discussed with the patient and/or family. Patient verbalized understanding. Family/Guardian present. Informed consent was given. Consent was signed by the patient. [Electronically Signed on: 01/15/2019 12:03 EDT] Tray Gill MD [Verified on: 01/15/2019 12:03 EDT] Tray Gill MD [facility] Inpatient Patient Summaryon 01-15-2019 [place] [address] Patient Discharge Instructions Name: PLATTKAYLIN OBANDONA Praveen : 1980 Patient Address: [address] [place] [address] Primary Care Provider: Name: Kimberly Botello MD After you are discharged if you find you have any questions, please, call [phone] ext [phone] to speak to a nurse. Discharge Diagnosis: Pelvic pain Prescription Information: If you have been given a prescription for narcotics, seek immediate medical attention if you have any difficulty breathing or any sudden status changes such as confusion and sleepiness. If you or anyone you know is experiencing suicidal thoughts, mental health, alcohol and/or drug addiction problems; contact the [facility] 10/10 Crisis Hotline -Text 4HZXH rj 027363. If you received any narcotics, sedation, or [...] business decisions or sign any legal documents [facility] would like to thank you for allowing us to assist you with your healthcare needs. The following includes patient education materials and information regarding your injury/illness. EVELINE PLATT has been given the following list of follow-up instructions, prescriptions, and patient education materials: Follow-up Instructions With: Address: When: Eliezer Torres [address] [place], [place] [id number] Business (1) In 2 weeks 01/29/2019 With: Address: When: Kimberly Botello [address] [place] [address], [address] [place] [phone] Business (1) Medications During the course of your visit, your medication list was updated with the most current information. The details of those changes are reflected below: New Medications Printed Prescriptions acetaminophen-hydroco done ([place] 5 mg-325 mg oral tablet) 1 tab(s) [...] you can keep with you. acetaminophen-hydroco done ([place] 5 mg-325 mg oral tablet) 1 tab(s) [...] and abdomen. HOME CARE INSTRUCTIONS ? Take csoq-wik-rmoegvx and prescription medicines only as told by [...] and water are not available, use hand machine heel seat fitter. ? Change your dressings (Band Aids) daily [...] provider. Document Released: 02/15/2016 Document Reviewed: 02/15/2016 [employer] Patient Education ?2016 [employer] Viruses or Bacteria What?s got you [...] for Disease Control and Prevention November 2013 [facility] MAGR PACU Recordon 9 MAGR PACU Record MAGR PACU Record Summary Primary Physician: Eliezer Torres DO Finalized Date/Time: 01/15/19 14:27:14 Pt. Name: EVELINE PLATT/Sex: 1980 FEMALE Med Rec #: [id number] Physician: Eliezer Torres DO Financial #: [id number] Pt. Type: D Room/Bed: / Admit/Disch: 01/15/19 [...] Signed By: Paty Anne RN 01/15/19 14:27 [facility] MAGR Preoperative Recordon 1 MAGR Preoperative Record MAGR Pre-Op Record Summary Primary Physician: Eliezer Torres DO Finalized Date/Time: 01/15/19 12:44:26 Pt. Name: EVELINE PLATT/Sex: 1980 FEMALE Med Rec #: [id number] Physician: Eliezer Torres DO Financial #: [id number] Pt. Type: D Room/Bed: / Admit/Disch: 01/15/19 [...] Signed By: Bianka Frias RN 01/15/19 12:44 [facility] Patient Handouton 01-15-2019 Patient Handout Diagnostic [...] and abdomen. HOME CARE INSTRUCTIONS ? Take vwrk-tue-alsanit and prescription medicines only as told by [...] and water are not available, use hand machine heel seat fitter. ? Change your dressings (Band Aids) daily [...] provider. Document Released: 02/15/2016 Document Reviewed: 02/15/2016 [employer] Interactive Patient Education ?2015 [employer] Normal [facility] Test Urine 1on U Preg Negative [facility] Comment on above: Performed By: #### 3 [id number] #### [facility] (DEFAULT) [address] [place] [address] 46871 U Preg Internal Control Pass [facility] Comment on above: Performed By: #### 3 [id number] #### [facility] (DEFAULT) [address] [place] [address] 46050 Progress Note - Nurseon - Progress Note - Nurse Pre op phone call complete. Spoke with patient, confirmed time of arrival for 0900 on 01/14/19 [Electronically Signed on: 01/14/2019 10:13 EDT] Haritha Lee RN [Verified on: 01/14/2019 10:13 EDT] Haritha Lee RN [facility] ABORhon 01-13-2019 ABO and Rh group Nom (Bld) Hx Check: Found Anti-A: 0 Anti-B: 0 Anti-D: 4+ DCon: NT A1: 4+ B: 4+ ABORh Interp: O POS [facility] Comment on above: Performed By: #### 2 [id number], [id number], [id number], [id number] #### [facility] (DEFAULT) [address] [place] [address] 32444 ABSC Gelon 01-13-2019 ABSC Gel Negative [facility] Comment on above: Performed By: #### 2 [id number], [id number], [id number], [id number] #### [facility] (DEFAULT) [address] [place] [address] Blood Bank IDon 01-13-2019 Blood Bank ID BBID: [id number] [facility] Comment on above: Performed By: #### 2 [id number], [id number], [id number], [id number] #### [facility] (DEFAULT) [address] [place] [address] 88045 Hgbon 01-13-2019 Hemoglobin (Bld) [Mass/Vol] 13.9 g/dL Normal 11.3-15.9 [facility] Comment on above: Performed By: #### 2 456511, [id number], [id number], [id number] #### [facility] (DEFAULT) [address] [place], [place] [id number] Coding Summaryon 01-10-2019 Coding Summary CODING DATE: 01/10/[address] 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 [...] Silva Date Saved: 01/10/2019 04:33 pm Normal [facility] Provider Orderson 01-07-2019 Provider Orders [id number] Normal [facility] .Auto Diff 1on 01-02-2019 [employer] % 9 % Normal 1-12 [facility] Comment on above: Performed By: #### 7 [id number], [id number] #### [facility] (DEFAULT) [address] [place] [address] 59527 Baso Abs# 0.0 x10 Normal 0.0-0.2 [facility] Comment on above: Performed By: #### 7 [id number], [id number] #### [facility] (DEFAULT) [address] [place] [address] 14075 Basophils/100 WBC (Bld) 0.4 % Normal 0.2-2.0 [facility] Comment on above: Performed By: #### 7 151047, [id number] #### [facility] (DEFAULT) [address] [place] [address] 76381 Eos Abs# 0.1 x10 Normal 0.0-0.4 [facility] Comment on above: Performed By: #### 7 [id number], [id number] #### [facility] (DEFAULT) [address] [place] [address] 36978 Eosinophils/100 WBC (Bld) 1.7 % Normal 0.9-4.0 [facility] Comment on above: Performed By: #### 7 649813, [id number] #### [facility] (DEFAULT) [address] [place] [address] 18134 Lymphocytes (Bld) [#/Vol] 1.4 x10 Normal 1.3-2.9 [facility] Comment on above: Performed By: #### 7 196803, [id number] #### [facility] (DEFAULT) [address] [place] [address] 62197 Lymphocytes/100 WBC (Bld) 26 % Normal 14-48 [facility] Comment on above: Performed By: #### 7 002965, [id number] #### [facility] (DEFAULT) [address] [place] [address] Dodge Abs# 0.5 x10 Normal 0.0-0.8 [facility] Comment on above: Performed By: #### 7 128735, [id number] #### [facility] (DEFAULT) [address] [place] [address] Neut Abs# 3.3 x10 Normal 1.5-9.2 [facility] Comment on above: Performed By: #### 7 723616, [id number] #### [facility] (DEFAULT) [address] [place] [address] Neutrophils/100 WBC (Bld) 63 % Normal 44-88 [facility] Comment on above: Performed By: #### 7 063965, [id number] #### [facility] (DEFAULT) [address] [place] [address] CBC w/ Auto Diffon 9 Erythrocyte distribution width (RBC) [Ratio] 12.6 % Normal 11.5-15.0 [facility] Comment on above: Performed By: #### 7 821128, [id number] #### [facility] (DEFAULT) [address] [place] [address] Hematocrit (Bld) [Volume fraction] 39.8 % Normal 33.7-40.4 [facility] Comment on above: Performed By: #### 7 112646, [id number] #### [facility] (DEFAULT) [address] [place] [address] Hemoglobin (Bld) [Mass/Vol] 13.2 g/dL Normal 11.3-15.9 [facility] Comment on above: Performed By: #### 7 460038, [id number] #### [facility] (DEFAULT) [address] [place] [address] Man Diff? Auto Normal [facility] Comment on above: Performed By: #### 7 346068, [id number] #### [facility] (DEFAULT) [address] [place] [address] MCH (RBC) [Entitic mass] 31 pg Normal 24-34 [facility] Comment on above: Performed By: #### 7 568620, [id number] #### [facility] (DEFAULT) [address] [place] [address] 84131 MCHC (RBC) [Mass/Vol] 33 g/dL Normal 26-37 [facility] Comment on above: Performed By: #### 7 225536, [id number] #### [facility] (DEFAULT) [address] [place] [address] 45703 MCV (RBC) [Entitic vol] 93 fL Normal 81-100 [facility] Comment on above: Performed By: #### 7 115997, [id number] #### [facility] (DEFAULT) [address] [place] [address] 93536 Platelet mean volume (Bld) [Entitic vol] 11.2 fL High 6.3-10.2 [facility] Comment on above: Performed By: #### 7 871346, [id number] #### [facility] (DEFAULT) [address] [place] [address] 37330 Platelets (Bld) [#/Vol] 242 x10 Normal 138-427 [facility] Comment on above: Performed By: #### 7 593039, [id number] #### [facility] (DEFAULT) [address] [place] [address] 49045 RBC (Bld) [#/Vol] 4.26 x10 Normal 3.70-5.30 [facility] Comment on above: Performed By: #### 7 104983, [id number] #### [facility] (DEFAULT) [address] [place] [address] 26816 WBC (Bld) [#/Vol] 5.2 x10 Normal 3.5-10.5 [facility] Comment on above: Performed By: #### 7 307367, [id number] #### [facility] (DEFAULT) [address] [place] [address] 98042 BASIC METABOLIC PANELon 09-0 -2018 Calcium [Mass/Vol] 8.8 mg/dL Normal 8.6-10.3 [facility] Comment on above: Order Comment: No: D o not add to previous draw Performed By: #### 4 64, 13040 #### [facility] [address] [place] [address], [place] Chloride [Moles/Vol] 108 mmol/L High 98-107 [facility] Comment on above: Order Comment: No: D o not add to previous draw Performed By: #### 4 64, 65770 #### [facility] [address] [place] [address], [place] CO2 [Moles/Vol] 23 mmol/L Normal 21-31 The [facility] Comment on above: Order Comment: No: D o not add to previous draw Performed By: #### 4 64, 86839 #### [facility] [address] [place] [address], [place] Creatinine [Mass/Vol] 0.59 mg/dL Low 0.60-1.20 [facility] Comment on above: Order Comment: No: D o not add to previous draw Performed By: #### 4 64, 86569 #### [facility] [address] [place] [address], [place] GFR/1.73 sq M predicted among blacks MDRD (S/P/Bld) [Vol rate/Area] mL/min/{1.73_m2} Normal >60 [facility] Comment on above: Order Comment: No: D o not add to previous draw Performed By: #### 4 64, 28953 #### [facility] [address] [place] [address], [place] GFR/1.73 sq M predicted among non-blacks MDRD (S/P/Bld) [Vol rate/Area] mL/min/{1.73_m2} Normal >60 [facility] Comment on above: Order Comment: No: D o not add to previous draw Performed By: #### 4 64, 98271 #### [facility] [address] [place] [address], [place] Glucose [Mass/Vol] 272 mg/dL High 70-100 The [facility] Comment on above: Order Comment: No: D o not add to previous draw Performed By: #### 4 6413, 49186 #### [facility] [address] [place] [address], [place] Potassium [Moles/Vol] 3.6 mmol/L Normal 3.5-5.1 [facility] Comment on above: Order Comment: No: D o not add to previous draw Performed By: #### 4 64, 33055 #### [facility] [address] [place] [address], [facility] Sodium [Moles/Vol] 137 mmol/L Normal 136-145 [facility] Comment on above: Order Comment: No: D o not add to previous draw Performed By: #### 4 64, 31838 #### [facility] [address] [place] [id number], [facility] Urea nitrogen [Mass/Vol] 17 mg/dL Normal 7-25 [facility] Comment on above: Order Comment: No: D o not add to previous draw Performed By: #### 4 6413, 01713 #### [facility] [address] CBC COMPLETE BLOOD COUNTon 0 - Erythrocyte distribution width (RBC) [Ratio] 13.0 % Normal 11.5-15.0 [facility] Comment on above: Order Comment: No: D o not add to previous draw Performed By: #### 4 6413, 34339 #### [facility] [address] [place] [id number], [facility] Hematocrit (Bld) [Volume fraction] 40.2 % Normal 36.0-45.0 [facility] Comment on above: Order Comment: No: D o not add to previous draw Performed By: #### 4 6413, 18965 #### [facility] [address] Hemoglobin (Bld) [Mass/Vol] 13.1 g/dL Normal 12.0-15.0 [facility] Comment on above: Order Comment: No: D o not add to previous draw Performed By: #### 4 64, 14434 #### [facility] [address] [place] [address], [facility] MCH (RBC) [Entitic mass] 30.7 pg Normal 27.0-33.0 [facility] Comment on above: Order Comment: No: D o not add to previous draw Performed By: #### 4 64, 91953 #### [facility] [address] [facility]. [address] MCHC (RBC) [Mass/Vol] 32.6 g/dL Normal 32.0-35.0 [facility] Comment on above: Order Comment: No: D o not add to previous draw Performed By: #### 4 41, 70220 #### [facility] [address] [facility]. [address] MCV (RBC) [Entitic vol] 94.1 fL Normal 82.0-98.0 [facility] Comment on above: Order Comment: No: D o not add to previous draw Performed By: #### 4 64, 56786 #### [facility] [address] [facility]. [address] Nucleated RBC/100 WBC (Bld) [Ratio] 0 % Normal 0-0 [facility] Comment on above: Order Comment: No: D o not add to previous draw Performed By: #### 4 31, 74790 #### [facility] [address] [facility] [place] [address], [facility] PLAT CNT 256 10*3/uL Normal 150-400 [facility] Comment on above: Order Comment: No: D o not add to previous draw Performed By: #### 4 94, 33162 #### [facility] [address] [place] [address], [facility] RBC (Bld) [#/Vol] 4.27 10*6/uL Normal 3.80-5.00 [facility] Comment on above: Order Comment: No: D o not add to previous draw Performed By: #### 4 6413, 88174 #### [facility] [address] [place] [address], [facility] WBC (Bld) [#/Vol] 16.78 10*3/uL High 4.00-10.60 [facility] Comment on above: Order Comment: No: D o not add to previous draw Performed By: #### 4 6413, 42817 #### [facility] [address] [place] [id number], [facility] BASIC METABOLIC PANELon 09-0 -2018 Calcium [Mass/Vol] 9.4 mg/dL Normal 8.6-10.3 [facility] Comment on above: Order Comment: No: D o not add to previous draw Performed By: #### 4 6413, 79785 #### [facility] [address] [place] [address], [place] Chloride [Moles/Vol] 105 mmol/L Normal 98-107 [facility] Comment on above: Order Comment: No: D o not add to previous draw Performed By: #### 4 6413, 09005 #### [facility] [address] [place] [id number], [facility] CO2 [Moles/Vol] 22 mmol/L Normal 21-31 The [facility] Comment on above: Order Comment: No: D o not add to previous draw Performed By: #### 4 6413, 55109 #### [facility] [address] [place] [address], [place] Creatinine [Mass/Vol] 0.51 mg/dL Low 0.60-1.20 [facility] Comment on above: Order Comment: No: D o not add to previous draw Performed By: #### 4 64, 60922 #### [facility] [address] [place] [address], [place] GFR/1.73 sq M predicted among blacks MDRD (S/P/Bld) [Vol rate/Area] mL/min/{1.73_m2} Normal >60 [facility] Comment on above: Order Comment: No: D o not add to previous draw Performed By: #### 4 64, 77687 #### [facility] [address] [place] [address], [place] GFR/1.73 sq M predicted among non-blacks MDRD (S/P/Bld) [Vol rate/Area] mL/min/{1.73_m2} Normal >60 [facility] Comment on above: Order Comment: No: D o not add to previous draw Performed By: #### 4 64, 86443 #### [facility] [address] [place] [address], [place] Glucose [Mass/Vol] 187 mg/dL High 70-100 [facility] Comment on above: Order Comment: No: D o not add to previous draw Performed By: #### 4 21, 65736 #### [facility] [address] [place] [address], [place] Potassium [Moles/Vol] 3.6 mmol/L Normal 3.5-5.1 [facility] Comment on above: Order Comment: No: D o not add to previous draw Performed By: #### 4 64, 33213 #### [facility] [address] [place] [address], [place] Sodium [Moles/Vol] 136 mmol/L Normal 136-145 The [facility] Comment on above: Order Comment: No: D o not add to previous draw Performed By: #### 4 64, 51465 #### [facility] [address] [place] [address], [place] Urea nitrogen [Mass/Vol] 12 mg/dL Normal 7-25 [facility] Comment on above: Order Comment: No: D o not add to previous draw Performed By: #### 4 6413, 94594 #### [facility] [address] [place] [id number], [facility] CBC COMPLETE BLOOD COUNTon 0 11-20-2018 Erythrocyte distribution width (RBC) [Ratio] 12.7 % Normal 11.5-15.0 [facility] Comment on above: Order Comment: No: D o not add to previous draw Performed By: #### 4 64, 00169 #### [facility] [address] [place] [id number], [facility] Hematocrit (Bld) [Volume fraction] 40.8 % Normal 36.0-45.0 [facility] Comment on above: Order Comment: No: D o not add to previous draw Performed By: #### 4 64, 62178 #### [facility] [address] [place] [address], [facility] Hemoglobin (Bld) [Mass/Vol] 13.6 g/dL Normal 12.0-15.0 [facility] Comment on above: Order Comment: No: D o not add to previous draw Performed By: #### 4 6413, 45970 #### [facility] [address] [place] [address], [facility] MCH (RBC) [Entitic mass] 30.0 pg Normal 27.0-33.0 [facility] Comment on above: Order Comment: No: D o not add to previous draw Performed By: #### 4 64, 66847 #### [facility] [address] [place] [address], [place] MCHC (RBC) [Mass/Vol] 33.3 g/dL Normal 32.0-35.0 [facility] Comment on above: Order Comment: No: D o not add to previous draw Performed By: #### 4 64, 17110 #### [facility] [address] [place] [address], [facility] MCV (RBC) [Entitic vol] 90.1 fL Normal 82.0-98.0 [facility] Comment on above: Order Comment: No: D o not add to previous draw Performed By: #### 4 6413, 08042 #### [facility] [address] [place] [address], [facility] Nucleated RBC/100 WBC (Bld) [Ratio] 0 % Normal 0-0 [facility] Comment on above: Order Comment: No: D o not add to previous draw Performed By: #### 4 64, 74347 #### [facility] [address] [facility] [place] [address], [facility] PLAT CNT 277 10*3/uL Normal 150-400 [facility] Comment on above: Order Comment: No: D o not add to previous draw Performed By: #### 4 64, 25871 #### [facility] [address] [facility] [place] [address], [facility] RBC (Bld) [#/Vol] 4.53 10*6/uL Normal 3.80-5.[address] [facility] Comment on above: Order Comment: No: D o not add to previous draw Performed By: #### 4 6413, 46762 #### [facility] [address] [facility] [place] [address], [facility] WBC (Bld) [#/Vol] 18.13 10*3/uL High 4.00-10.60 [facility] Comment on above: Order Comment: No: D o not add to previous draw Performed By: #### 4 64, 51837 #### [facility] [address] POC GLUCOSE LABon 11-20-2018 Glucose [Mass/Vol] 357 mg/dL High 70-100 The [facility] Comment on above: Performed By: #### 4 64, 74797 #### [facility] [address] [place] [address], [place] Glucose [Mass/Vol] 272 mg/dL High 70-100 [facility] Comment on above: Performed By: #### 4 64, 09545 #### [facility] [address] [place] [address], [place] Glucose [Mass/Vol] 201 mg/dL High 70-100 [facility] Comment on above: Performed By: #### 4 64, [id number] #### [facility] [address] [place] [address], [place] Glucose [Mass/Vol] 183 mg/dL High 70-100 The [facility] Comment on above: Performed By: #### 4 6413, 21580 #### [facility] [address] [place] [address], [place] BASIC METABOLIC PANELon 09-0 Calcium [Mass/Vol] 8.7 mg/dL Normal 8.6-10.3 The [facility] Comment on above: Order Comment: No: D o not add to previous draw Performed By: #### 5 0608 #### [facility] [address] [place] [address], [place] Chloride [Moles/Vol] 106 mmol/L Normal 98-107 The [facility] Comment on above: Order Comment: No: D o not add to previous draw Performed By: #### 5 0608 #### [facility] [address] [place] [address], [place] CO2 [Moles/Vol] 25 mmol/L Normal 21-31 The [facility] Comment on above: Order Comment: No: D o not add to previous draw Performed By: #### 5 0608 #### [facility] [address] [place] [address], [place] Creatinine [Mass/Vol] 0.62 mg/dL Normal 0.60-1.20 The [facility] Comment on above: Order Comment: No: D o not add to previous draw Performed By: #### 5 0608 #### [facility] [address] [place] [address], [place] GFR/1.73 sq M predicted among blacks MDRD (S/P/Bld) [Vol rate/Area] mL/min/{1.73_m2} Normal >60 The [facility] Comment on above: Order Comment: No: D o not add to previous draw Performed By: #### 5 0608 #### [facility] [address] [place] [address], [place] GFR/1.73 sq M predicted among non-blacks MDRD (S/P/Bld) [Vol rate/Area] mL/min/{1.73_m2} Normal >60 The [facility] Comment on above: Order Comment: No: D o not add to previous draw Performed By: #### 5 0608 #### [facility] [address] [place] [address], [place] Glucose [Mass/Vol] 126 mg/dL High 70-100 [facility]: Order Comment: No: D o not add to previous draw Performed By: #### 5 0608 #### [facility] [address] [place] [address], [place] Potassium [Moles/Vol] 3.7 mmol/L Normal 3.5-5.1 The [facility] Comment on above: Order Comment: No: D o not add to previous draw Performed By: #### 5 0608 #### [facility] [address] [place] [address], [place] Sodium [Moles/Vol] 137 mmol/L Normal 136-145 The [facility] Comment on above: Order Comment: No: D o not add to previous draw Performed By: #### 5 0608 #### [facility] [address] Urea nitrogen [Mass/Vol] 14 mg/dL Normal 7-25 The [facility] Comment on above: Order Comment: No: D o not add to previous draw Performed By: #### 5 0608 #### [facility] [address] [place] [address], [facility] CBC COMPLETE BLOOD COUNTon 0 11-19-2018 Erythrocyte distribution width (RBC) [Ratio] 12.7 % Normal 11.5-15.0 The [facility] Comment on above: Order Comment: No: D o not add to previous draw Performed By: #### 5 0608 #### [facility] [address] [facility]. [address] Hematocrit (Bld) [Volume fraction] 40.8 % Normal 36.0-45.0 The [facility] Comment on above: Order Comment: No: D o not add to previous draw Performed By: #### 5 0608 #### [facility] [address] [facility] [address] Hemoglobin (Bld) [Mass/Vol] 13.3 g/dL Normal 12.0-15.0 The [facility] Comment on above: Order Comment: No: D o not add to previous draw Performed By: #### 5 0608 #### [facility] [address] [facility] [place] [address], [facility] MCH (RBC) [Entitic mass] 30.6 pg Normal 27.0-33.0 The [facility] Comment on above: Order Comment: No: D o not add to previous draw Performed By: #### 5 0608 #### [facility] [address] [place] [id number], [facility] MCHC (RBC) [Mass/Vol] 32.6 g/dL Normal 32.0-35.0 The [facility] Comment on above: Order Comment: No: D o not add to previous draw Performed By: #### 5 0608 #### [facility] [address] [place] [address], [facility] MCV (RBC) [Entitic vol] 93.8 fL Normal 82.0-98.0 The [facility] Comment on above: Order Comment: No: D o not add to previous draw Performed By: #### 5 0608 #### [facility] [address] [place] [address], [facility] Nucleated RBC/100 WBC (Bld) [Ratio] 0 % Normal 0-0 The [facility] Comment on above: Order Comment: No: D o not add to previous draw Performed By: #### 5 0608 #### [facility] [address] [facility] [place] [address], [facility] PLAT CNT 218 10*3/uL Normal 150-400 The [facility] Comment on above: Order Comment: No: D o not add to previous draw Performed By: #### 5 0608 #### [facility] [address] [facility] [place] [address], [facility] RBC (Bld) [#/Vol] 4.35 10*6/uL Normal 3.80-5.[address] [facility] Comment on above: Order Comment: No: D o not add to previous draw Performed By: #### 5 0608 #### [facility] [address] [facility] [place] [address], [facility] WBC (Bld) [#/Vol] 6.28 10*3/uL Normal 4.00-10.[address] [facility] Comment on above: Order Comment: No: D o not add to previous draw Performed By: #### 5 0608 #### [facility] [address] [facility] [place] [address], [facility] POC GLUCOSE LABon 11-19-2018 Glucose [Mass/Vol] 236 mg/dL High 70-100 The [facility] Comment on above: Performed By: #### 5 0608 #### [facility] [address] [place] [address], [facility] Glucose [Mass/Vol] 217 mg/dL High 70-100 The [facility] Comment on above: Performed By: #### 5 0608 #### [facility] [address] [facility] [place] [address], [facility] Glucose [Mass/Vol] 180 mg/dL High 70-100 The [facility] Comment on above: Performed By: #### 5 0608 #### [facility] [address] [facility] [place] [address], [facility] Glucose [Mass/Vol] 110 mg/dL High 70-100 The [facility] Comment on above: Performed By: #### 5 0608 #### [facility] [address] CBC W/DIFFon 11-18-2018 ABS BASOPHILS 0.0 10*3/uL Normal 0.0-0.2 The [facility] Comment on above: Order Comment: Unkno wn Performed By: #### 5 0103 #### [facility] [address] [facility]. [address] ABS IMM GRANS 0.0 10*3/uL Normal 0.0-0.2 The [facility] Comment on above: Order Comment: Unkno wn Performed By: #### 5 0103 #### [facility] [address] [facility] [place] [address], [facility] ABS NEUTROPHILS 3.3 10*3/uL Normal 1.6-7.6 The [facility] Comment on above: Order Comment: Unkno wn Performed By: #### 5 0103 #### [facility] [address] [facility] [place] [address], [facility] Basophils/100 WBC (Bld) 0.4 % Normal 0.0-1.0 The [facility] Comment on above: Order Comment: Unkno wn Performed By: #### 5 0103 #### [facility] [address] [facility] [place] [address], [facility] Eosinophils (Bld) [#/Vol] 0.1 10*3/uL Normal 0.0-0.5 The [facility] Comment on above: Order Comment: Unkno wn Performed By: #### 5 0103 #### [facility] [address] [place] [address], [facility] Eosinophils/100 WBC (Bld) 2.3 % Normal 0.0-6.0 The [facility] Comment on above: Order Comment: Unkno wn Performed By: #### 5 0103 #### [facility] [address] [facility] [place] [address], [facility] Erythrocyte distribution width (RBC) [Ratio] 12.8 % Normal 11.5-15.0 The [facility] Comment on above: Order Comment: Unkno wn Performed By: #### 5 3 #### [facility] [address] [facility] [place] [address], [facility] Hematocrit (Bld) [Volume fraction] 38.6 % Normal 36.0-45.0 The [facility] Comment on above: Order Comment: Unkno wn Performed By: #### 5 0103 #### [facility] [address] [facility] [place] [address], [facility] Hemoglobin (Bld) [Mass/Vol] 12.8 g/dL Normal 12.0-15.0 The [facility] Comment on above: Order Comment: Unkno wn Performed By: #### 5 0103 #### [facility] [address] [facility] [place] [address], [facility] IMMATURE GRANS 0.5 % Normal 0.0-1.0 The [facility] Comment on above: Order Comment: Unkno wn Performed By: #### 5 3 #### [facility] [address] [place] [id number], [facility] Lymphocytes (Bld) [#/Vol] 1.6 10*3/uL Normal 1.2-4.0 The [facility] Comment on above: Order Comment: Unkno wn Performed By: #### 5 0103 #### [facility] [address] [facility] [place] [address], [facility] Lymphocytes/100 WBC (Bld) 28.1 % Normal 20.0-45.0 The [facility] Comment on above: Order Comment: Unkno wn Performed By: #### 5 0103 #### [facility] [address] [facility] [address] MCH (RBC) [Entitic mass] 30.2 pg Normal 27.0-33.0 The [facility] Comment on above: Order Comment: Unkno wn Performed By: #### 5 0103 #### [facility] [address] [facility] [address] MCHC (RBC) [Mass/Vol] 33.2 g/dL Normal 32.0-35.0 The [facility] Comment on above: Order Comment: Unkno wn Performed By: #### 5 3 #### [facility] [address] [facility] [place] [address], [facility] MCV (RBC) [Entitic vol] 91.0 fL Normal 82.0-98.0 The [facility] Comment on above: Order Comment: Unkno wn Performed By: #### 5 3 #### [facility] [address] [facility] [place] [address], [facility] Monocytes (Bld) [#/Vol] 0.5 10*3/uL Normal 0.1-1.0 The [facility] Comment on above: Order Comment: Unkno wn Performed By: #### 5 3 #### [facility] [address] [facility] [place] [address], [facility] MONOS 9.0 % Normal 5.0-12.0 The [facility] Comment on above: Order Comment: Unkno wn Performed By: #### 5 3 #### [facility] [address] [place] [address], [facility] Neutrophils/100 WBC (Bld) 59.7 % Normal 40.0-72.0 The [facility] Comment on above: Order Comment: Unkno wn Performed By: #### 5 0103 #### [facility] [address] [place] [address], [facility] Nucleated RBC/100 WBC (Bld) [Ratio] 0 % Normal 0-0 The [facility] Comment on above: Order Comment: Unkno wn Performed By: #### 5 0103 #### [facility] [address] [facility] [place] [address], [facility] PLAT CNT 211 10*3/uL Normal 150-400 The [facility] Comment on above: Order Comment: Unkno wn Performed By: #### 5 102 #### [facility] [address] [facility] [place] [address], [facility] RBC (Bld) [#/Vol] 4.24 10*6/uL Normal 3.80-5.[address] [facility] Comment on above: Order Comment: Unkno wn Performed By: #### 5 3 #### [facility] [address] [facility] [place] [address], [facility] WBC (Bld) [#/Vol] 5.55 10*3/uL Normal 4.00-10.[address] [facility] Comment on above: Order Comment: Unkno wn Performed By: #### 5 3 #### [facility] [address] [facility]. [address] COMP METABOLIC PANELon 11-18 Albumin [Mass/Vol] 3.7 g/dL Normal 3.5-5.7 The [facility] Comment on above: Order Comment: Unkno wn Performed By: #### 0 0121 #### [facility] [address] [place] [address], [facility] ALKALINE PHOSPH 64 IU/L Normal 34-104 The [facility] Comment on above: Order Comment: Unkno wn Performed By: #### 0 0121 #### [facility] [address] [place] [address], [place] ALT [Catalytic activity/Vol] 22 U/L Normal 7-52 The [facility] Comment on above: Order Comment: Unkno wn Performed By: #### 0 0121 #### [facility] [address] [place] [address], [place] AST [Catalytic activity/Vol] 20 U/L Normal 13-39 The [facility] Comment on above: Order Comment: Unkno wn Performed By: #### 0 0121 #### [facility] [address] [place] [address], [place] Bilirubin [Mass/Vol] 0.3 mg/dL Normal 0.3-1.0 The [facility] Comment on above: Order Comment: Unkno wn Performed By: #### 0 0121 #### [facility] [address] [place] [address], [place] Calcium [Mass/Vol] 8.3 mg/dL Low 8.6-10.3 The [facility] Comment on above: Order Comment: Unkno wn Performed By: #### 0 0121 #### [facility] [address] [place] [address], [place] Chloride [Moles/Vol] 107 mmol/L Normal 98-107 The [facility] Comment on above: Order Comment: Unkno wn Performed By: #### 0 0121 #### [facility] [address] [place] [address], [place] CO2 [Moles/Vol] 22 mmol/L Normal 21-31 The [facility] Comment on above: Order Comment: Unkno wn Performed By: #### 0 0121 #### [facility] [address] [place] [address], [place] Creatinine [Mass/Vol] 0.60 mg/dL Normal 0.60-1.20 The [facility] Comment on above: Order Comment: Unkno wn Performed By: #### 0 0121 #### [facility] [address] [place] [address], [place] GFR/1.73 sq M predicted among blacks MDRD (S/P/Bld) [Vol rate/Area] mL/min/{1.73_m2} Normal >60 The [facility] Comment on above: Order Comment: Unkno wn Performed By: #### 0 0121 #### [facility] [address] [place] [address], [place] GFR/1.73 sq M predicted among non-blacks MDRD (S/P/Bld) [Vol rate/Area] mL/min/{1.73_m2} Normal >60 The [facility] Comment on above: Order Comment: Unkno wn Performed By: #### 0 0121 #### [facility] [address] [place] [address], [place] Glucose [Mass/Vol] 126 mg/dL High 70-100 [facility] Comment on above: Order Comment: Unkno wn Performed By: #### 0 0121 #### [facility] [address] [place] [address], [place] Potassium [Moles/Vol] 3.7 mmol/L Normal 3.5-5.1 The [facility] Comment on above: Order Comment: Unkno wn Performed By: #### 0 0121 #### [facility] [address] [place] [address], [place] Protein [Mass/Vol] 6.6 g/dL Normal 6.0-8.3 [facility] Comment on above: Order Comment: Unkno wn Performed By: #### 0 0121 #### [facility] [address] [place] [address], [place] Sodium [Moles/Vol] 135 mmol/L Low 136-145 [facility] Comment on above: Order Comment: Unkno wn Performed By: #### 0 0121 #### [facility] [address] [facility] [place] [place] [address], [facility] Urea nitrogen [Mass/Vol] 10 mg/dL Normal 7-25 The [facility] Comment on above: Order Comment: Unkno wn Performed By: #### 0 0121 #### [facility] [address] [facility] [place] [address], [facility] HEMOGLOBIN A1Con 11-18-2018 HbA1c (Bld) [Mass fraction] 103 mg/dL Normal 70-126 The [facility] Comment on above: Order Comment: No: D o not add to previous draw Performed By: #### 4 6413, 62476 #### [facility] [address] [place] [address], [facility] HbA1c (Bld) [Mass fraction] 5.2 % Normal 4.0-6.0 The [facility] Comment on above: Order Comment: No: D o not add to previous draw Performed By: #### 4 6413, 77234 #### [facility] [address] [place] [address], [facility] MRI FACE ORBIT NECK W WO CON TRASTon 11-18-2018 MRI FACE ORBIT NECK W WO CONTRAST [facility] Department of Radiology [address] [place] [id number] Patient Name: EVELINE PLATT : 1980 Sex: F Age: Race: White Pt. Location: [id number] Patient Status: I Ordered Date: 11/18/2018 1:50:00 [...] and concur with these findings. Electronically signed by:Lisebth Guzman. Transcribed by: [email or web address], User Resident: MELISSA BLANKENSHIP Electronically Signed by: LISBETH GUZMAN @ 11/19/2018 08:37 AM I personally read this/these film(s) with this resident Normal The [facility] Comment on above: Order Comment: No: D o not add to previous draw POC GLUCOSE LABon 11-18-2018 Glucose [Mass/Vol] 150 mg/dL High 70-100 The [facility] Comment on above: Performed By: #### 5 0608 #### [facility] [address] [place] [address], [place] Glucose [Mass/Vol] 103 mg/dL High 70-100 The [facility] Comment on above: Performed By: #### 8 5499 #### [facility] [address] [place] [address], [place] BASIC METABOLIC PANELon 10-20 Calcium [Mass/Vol] 8.8 mg/dL Normal 8.6-10.3 The [facility] Comment on above: Order Comment: No: D o not add to previous draw Performed By: #### 4 6413, 46407 #### [facility] [address] [place] [address], [place] Chloride [Moles/Vol] 105 mmol/L Normal 98-107 The [facility] Comment on above: Order Comment: No: D o not add to previous draw Performed By: #### 4 6413, 25474 #### [facility] [address] [place] [address], [place] CO2 [Moles/Vol] 26 mmol/L Normal 21-31 The [facility] Comment on above: Order Comment: No: D o not add to previous draw Performed By: #### 4 6413, 60448 #### [facility] [address] [place] [address], [place] Creatinine [Mass/Vol] 0.71 mg/dL Normal 0.60-1.20 The [facility] Comment on above: Order Comment: No: D o not add to previous draw Performed By: #### 4 6413, 50124 #### [facility] [address] [place] [address], [place] GFR/1.73 sq M predicted among blacks MDRD (S/P/Bld) [Vol rate/Area] mL/min/{1.73_m2} Normal >60 The [facility] Comment on above: Order Comment: No: D o not add to previous draw Performed By: #### 4 64, 17788 #### [facility] [address] [place] [address], [place] GFR/1.73 sq M predicted among non-blacks MDRD (S/P/Bld) [Vol rate/Area] mL/min/{1.73_m2} Normal >60 The [facility] Comment on above: Order Comment: No: D o not add to previous draw Performed By: #### 4 64, 25201 #### [facility] [address] [place] [address], [place] Glucose [Mass/Vol] 90 mg/dL Normal 70-100 The [facility] Comment on above: Order Comment: No: D o not add to previous draw Performed By: #### 4 78, 08054 #### [facility] [address] [place] [address], [place] Potassium [Moles/Vol] 3.6 mmol/L Normal 3.5-5.1 The [facility] Comment on above: Order Comment: No: D o not add to previous draw Performed By: #### 4 40, 17429 #### [facility] [address] [place] [address], [place] Sodium [Moles/Vol] 138 mmol/L Normal 136-145 The [facility] Comment on above: Order Comment: No: D o not add to previous draw Performed By: #### 4 39, 59892 #### [facility] [address] [place] [address], [place] Urea nitrogen [Mass/Vol] 10 mg/dL Normal 7-25 The [facility] Comment on above: Order Comment: No: D o not add to previous draw Performed By: #### 4 6413, 95081 #### [facility] [address] CBC COMPLETE BLOOD COUNTon 11-17-2018 Erythrocyte distribution width (RBC) [Ratio] 12.8 % Normal 11.5-15.0 The [facility] Comment on above: Order Comment: No: D o not add to previous draw Performed By: #### 5 0608 #### [facility] [address] Hematocrit (Bld) [Volume fraction] 40.1 % Normal 36.0-45.0 The [facility] Comment on above: Order Comment: No: D o not add to previous draw Performed By: #### 5 0608 #### [facility] [address] Hemoglobin (Bld) [Mass/Vol] 13.1 g/dL Normal 12.0-15.0 The [facility] Comment on above: Order Comment: No: D o not add to previous draw Performed By: #### 5 0608 #### [facility] [address] [facility] [place] [address], [facility] MCH (RBC) [Entitic mass] 30.5 pg Normal 27.0-33.0 The [facility] Comment on above: Order Comment: No: D o not add to previous draw Performed By: #### 5 0608 #### [facility] [address] [facility] [place] [address], [facility] MCHC (RBC) [Mass/Vol] 32.7 g/dL Normal 32.0-35.0 The [facility] Comment on above: Order Comment: No: D o not add to previous draw Performed By: #### 5 0608 #### [facility] [address] [place] [address], [facility] MCV (RBC) [Entitic vol] 93.3 fL Normal 82.0-98.0 The [facility] Comment on above: Order Comment: No: D o not add to previous draw Performed By: #### 5 0608 #### [facility] [address] [facility] [place] [address], [facility] Nucleated RBC/100 WBC (Bld) [Ratio] 0 % Normal 0-0 The [facility] Comment on above: Order Comment: No: D o not add to previous draw Performed By: #### 5 0608 #### [facility] [address] [facility] [place] [address], [facility] PLAT CNT 225 10*3/uL Normal 150-400 The [facility] Comment on above: Order Comment: No: D o not add to previous draw Performed By: #### 5 0608 #### [facility] [address] [place] [address], [facility] RBC (Bld) [#/Vol] 4.30 10*6/uL Normal 3.80-5.[address] [facility] Comment on above: Order Comment: No: D o not add to previous draw Performed By: #### 5 0608 #### [place] [address], [facility] WBC (Bld) [#/Vol] 5.88 10*3/uL Normal 4.00-10.[address] [facility] Comment on above: Order Comment: No: D o not add to previous draw Performed By: #### 5 0608 #### [place] [address], [facility] CTA HEADon 11-17-2018 CTA HEAD [facility] Department of Radiology [address] [place] [address] Patient Name: EVELINE PLATT : 1980 Sex: F Age: Race: White Pt. Location: [id number] Patient Status: I Ordered Date: 11/17/2018 11:30:00 [...] findings. Electronically signed by:Brendan Mario. Transcribed by: [email or web address], User Resident: WHITNEY GLEASON Electronically Signed by: BRENDAN MARIO @ 11/18/2018 07:23 PM I personally read this/these film(s) with this resident Normal The [facility] Comment on above: Order Comment: No: D o not add to previous draw CTA NECKon 11-17-2018 CTA NECK [facility] Department of Radiology [address] [place] [id number] Patient Name: EVELINE PLATT : 1980 Sex: F Age: Race: White Pt. Location: [id number] Patient Status: I Ordered Date: 11/17/2018 11:30:00 [...] findings. Electronically signed by:Brendan Mario. Transcribed by: [email or web address], User Resident: WHITNEY GLEASON Electronically Signed by: BRENDAN MARIO @ 11/18/2018 07:23 PM I personally read this/these film(s) with this resident Normal [facility] History and Physicalon 11-17 History and Physical MR#: [id number] [facility] Pt. Name: Eveline Platt Admitted: 11/17/2018 Date of : 1980 Attending Physician: Jennifer Kincaid MD Room #: [id number] Discharge Date: HISTORY AND PHYSICAL CHIEF COMPLAINT: [...] Kincaid MD Date Trans: 11/17/2018 05:13 A/jp [id number] Normal [facility] LIPID PROFILEon 11-17-2018 Cholesterol [Mass/Vol] 133 mg/dL Normal 120-200 [facility] Comment on above: Order Comment: No: D o not add to previous draw Result Comment: CHOL ESTEROL REFERENCE RANGE: 20 YEARS AND OLDER CARDIOVASCULAR RISK Less than 200 mg/dl Low Risk 200 to 239 mg/dl Borderline Risk 240 mg/dl and greater High Risk Performed By: #### 4 6413, [id number] #### [facility] [address] [employer] [address], [place] Cholesterol in HDL [Mass/Vol] 39 mg/dL Normal 23-92 [facility] Comment on above: Order Comment: No: D o not add to previous draw Result Comment: Slig ht variation in normal range could be due to gender and/or age. HDL CHOLESTEROL REFERENCE RANGE: 20 years and older Cardiovascular Risk > or =60 mg/dL Desirable 40 TO 59 mg/dL Low Risk <40 mg/dL High Risk Performed By: #### 4 6413, 84048 #### [facility] [address] [place] [address], [place] Cholesterol in LDL [Mass/Vol] 52 mg/dL Normal 0-130 [facility] Comment on above: Order Comment: No: D o not add to previous draw Result Comment: LDL IS A CALCULATION LDL IS ONLY VALID IF THE TRIG IS LESS THAN 400. Performed By: #### 4 6413, 76930 #### [facility] [address] [place] [address], [place] Cholesterol.total/Ch olesterol in HDL [Mass ratio] 3.4 {ratio} Normal 0.0-4.5 [facility] Comment on above: Order Comment: No: D o not add to previous draw Performed By: #### 4 6413, 86798 #### [facility] [address] [facility]. [address] NON-HDL CHOLESTEROL 94 mg/dL Normal The [facility] Comment on above: Order Comment: No: D o not add to previous draw Performed By: #### 4 6413, 31885 #### [facility] [address] [place], [place] [id number] [place] [address] Triglyceride [Mass/Vol] 208 mg/dL High 40-149 [facility] Comment on above: Order Comment: No: D o not add to previous draw Result Comment: TRIG LYCERIDE REFERENCE RANGE: 20 YEARS AND OLDER CARDIOVASCULAR RISK LESS THAN 150 mg/dl LOW RISK 150 TO 199 mg/dl BORDERLINE RISK 200 mg/dl AND GREATER HIGH RISK Performed By: #### 4 6413, 48964 #### [facility] [address] VLDL CHOL 42 mg/dL High 0-40 [facility] Comment on above: Order Comment: No: D o not add to previous draw Performed By: #### 4 6413, 53529 #### [facility] [address] MRI BRAIN W WO CONTRASTon MRI BRAIN W WO CONTRAST [facility] Department of Radiology [address] [place] [id number] Patient Name: EVELINE PLATT : 1980 Sex: F Age: Race: White Pt. Location: [id number] Patient Status: I Ordered Date: 11/17/2018 2:50:00 [...] findings. Electronically signed by:Brendan Mario. Transcribed by: [email or web address], User Resident: WHITNEY GLEASON Electronically Signed by: BRENDAN MARIO @ 11/18/2018 07:22 PM I personally read this/these film(s) with this resident Normal [facility] Comment on above: Order Comment: R/O C [place] SEDIMENTATION RATEon 019 SED RATE 13 mm/hr Normal 0-20 [facility] Comment on above: Order Comment: No: D o not add to previous draw Performed By: #### 5 6506 #### [facility] [address] [place] [address], [facility] TOX PANEL URINEon 11-17-2018 50 THC Negative Normal NEGATIVE [facility] Comment on above: Order Comment: No: D o not add to previous draw Performed By: #### 3 1079 #### [facility] [address] [place] [address], [facility] BARBITURATES Negative Normal NEGATIVE The [facility] Comment on above: Order Comment: No: D o not add to previous draw Performed By: #### 3 1079 #### [facility] [address] [place] [address], [facility] Benzodiazepines Ql (U) Negative Normal NEGATIVE [facility] Comment on above: Order Comment: No: D o not add to previous draw Performed By: #### 3 1079 #### [facility] [address] [place] [address], [facility] Cocaine Ql (U) Negative Normal NEGATIVE The [facility] Comment on above: Order Comment: No: D o not add to previous draw Performed By: #### 3 1079 #### [facility] [address] [place] [address], [facility] Methadone Ql (U) Negative Normal NEGATIVE The [facility] Comment on above: Order Comment: No: D o not add to previous draw Performed By: #### 3 1079 #### [facility] [address] [place] [address], [place] MONO AMPHET Negative Normal NEGATIVE The [facility] Comment on above: Order Comment: No: D o not add to previous draw Performed By: #### 3 1079 #### [facility] [address] [place] [address], [place] Opiates Ql (U) Negative Normal NEGATIVE The [facility] Comment on above: Order Comment: No: D o not add to previous draw Performed By: #### 3 1079 #### [facility] [address] [place] [address], [place] Phencyclidine Ql (U) Negative Normal NEGATIVE [facility] Comment on above: Order Comment: No: D o not add to previous draw Performed By: #### 3 1079 #### [facility] [address] [place] [address], [facility] PROPOXYPHENE Negative Normal NEGATIVE The [facility] Comment on above: Order Comment: No: D o not add to previous draw Performed By: #### 3 1079 #### [facility] [address] [place] [address], [facility] TRICYCLICS Negative Normal NEGATIVE [facility] Comment on above: Order Comment: No: D o not add to previous draw Performed By: #### 3 1079 #### [facility] [address] [place] [address], [facility] Vital Signs Date Time Vital Sign Value Performing Clinician Faci lity 12-11-2023 15:49-0400 Body height 154.94 cm [facility] [place] 12-11-2023 15:49-0400 Body mass index (BMI) [Ratio] 39.1 kg/m2 [facility] 12-11-2023 15:49-0400 Body weight 93.89 kg [facility] [place] 12-11-2023 15:49-0400 Diastolic blood pressure 89 mm[Hg] [facility] 12-11-2023 15:49-0400 Heart rate 67 /min [facility] [place] 12-11-2023 15:49-0400 Systolic blood pressure 146 mm[Hg] [facility] Encounters Encounter Date Encounter Type Care Provider Facility Start: 12-11-2023 Patient encounter status [facility] Start: 12-11-2023 End: 12-11-2023 ambulatory [facility] Work Phone: Start: 12-11-2023 End: 12-11-2023 Encounter for general adult medical examination without abnormal findings [facility] Start: 12-11-2023 End: 12-11-2023 Patient encounter procedure [facility] Work Phone: Start: 02-07-2023 End: 02-07-2023 ambulatory Kimberly Botello Other [employer] Other Start: 02-07-2023 Telephone encounter Kimberly Botello [facility] Start: 01-23-2023 (Televisit) Televisit Kimberly Botello [facility] Start: 01-23-2023 End: 01-23-2023 ambulatory Kimberly Botello Other [employer] Other Start: 05-10-2022 End: 05-10-[address] MELLISSA BAILEY . Facility:[facility] Start: 05-21-2021 End: 05-22-[address] KIMBERLY BOTELLO Facility:[facility] Start: 03-25-2021 Adult health examination Kimberly Botello Other [employer] Other Start: 03-25-2021 Problem, abnormal examination Kimberly Botello Other [employer] Other Start: 05-07-2020 End: 05-07-2020 Patient encounter procedure External Provider [facility] Start: 05-07-2020 Results Only External Provider [facility] Start: 11-17-2018 End: 11-21-2018 Evaluation and management of inpatient CRISTINA PAT Facility:[facility] Procedures Date Procedure Procedure Detail Performing Clinician Start: 05-07-2020 End: 05-07-2020 EXTERNAL LAB External Provider Screening for malign ant neoplasm of breast Kimberly Botello Other Plan of Treatment Date Care Activity Detail Author Patient Education Back Flexion S trengthening Exercises [facility] Work Phone: XR Lumbar spine 2 or 3 Views [facility] Immunizations Immunization Date Immunization Notes Care Provider Hayden donniejeet 01-10-2018 influenza virus vaccine, split virus (incl. purified surface antigen) Kimberly Botello Other [facility] [employer] Other 01-10-2018 influenza virus vaccine, unspecified formulation [facility] Payers Date Payer Category Payer Unknown MMO MMO [employer] [id number] 2020-Present PPO [id number] 1980 Unknown [id number] 1980 Unknown [id number] 1980 Unknown [id number] 1959 Unknown [id number] Private Health Insurance [employer] [id number] Private Health Insurance [facility] [id number] Self-pay Self Pay [id number] Social History Date Type Detail Facility Tobacco smoking status NHIS Unknown if ever smoked [facility] Start: 1980 Sex Assigned At Not on file [facility] Sex Assigned At Sex Assigned At [facility] [employer] Other Start: 05-30-2023 Tobacco smoking status NHIS Never smoked tobacco (finding) [facility] Start: 1980 Sex Assigned At Female [facility] NEGATED: Highlighted row [facility] Evaluation note 01-23-2023 Note Date & [...] of diseases classified elsewhere (ICD-10 - B96.89) [employer] Other Progress note 07-20-2020 Note Date & Type Note Facility 07-20-2020 Note HNO ID: [id number] Author: Cat Fofana RD Service: ? Author Type: Registered Dietitian Type: Progress Notes Filed: 07/20/2020 12:50 PM Note Text: 12:01- Called pt at this time for scheduled phone appointment. No answer, left message for patient with provider contact information. Cat Fofana RDN, GHADA [facility] Clinical Note 07-20-2020 Note Date & Type Note Facility 07-20-2020 Note Education (NUTRSA) EVELINE PLATT ([id number]) 1980 F Date Time Provider Department 07/20/20 [...] Encounter Status:Closed by CAT FOFANA on 07/20/[address] [facility] Clinical Note 06-29-2020 Note Date & Type Note Facility 06-29-2020 Note Education (NUTRSA) EVELINE PLATT ([id number]) 1980 F Date Time Provider Department 06/29/20 [...] 4 course- meat/pot/corn/non-starchy vegetable Snack(s): evening snacker- 9-862p something sweet Fluids: 3-24 oz water during the day. At home 48oz water. Nutrition Diagnosis: Problem, Etiology and Signs/Symptoms: Overweight/Obesity related to excessive energy intake as evidenced by BMI 39.2. Nutrition Intervention: -aim for 3 meals + snack if needed -use Mogreet plate for dinner -ok to use meal replacement for lunch -ok to have snack of 1 CHO + Pro for breakfast -continue drinking at least 64 oz non-caffeine containing beverages -begin label reading -ok to use gama such as [employer] or [employer] to take caloric intake if desired -call [...] Estimated kilocalorie needs: 1854 kilocalories determined by Davison-St. Jeor x 1.2 Estimated protein needs: 75-94 [...] nutrition counseling for obesity. 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 [facility] Progress note 06-29-2020 Note Date & Type Note Facility 06-29-2020 Note HNO ID: [id number] Author: Cat Fofana Service: ? Author Type: [...] 4 course- meat/pot/corn/non-starchy vegetable Snack(s): evening snacker- 9-840p something sweet Fluids: 3-24 oz water during the day. At home 48oz water. Nutrition Diagnosis: Problem, Etiology and Signs/Symptoms: Overweight/Obesity related to excessive energy intake as evidenced by BMI 39.2. Nutrition Intervention: -aim for 3 meals + snack if needed -use Mogreet plate for dinner -ok to use meal replacement for lunch -ok to have snack of 1 CHO + Pro for breakfast -continue drinking at least 64 oz non-caffeine containing beverages -begin label reading -ok to use gama such as [employer] or [employer] to take caloric intake if desired -call [...] Estimated kilocalorie needs: 1854 kilocalories determined by Davison-St. Jeor x 1.2 Estimated protein needs: 75-94 [...] nutrition counseling for obesity. 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 [facility] Progress note 06-24-2020 Note Date & Type Note Facility 06-24-2020 Note HNO ID: [id number] Author: Blake Patel Service: ? Author Type: Physician Type: Progress Notes Filed: 06/25/2020 6:20 AM Note Text: NAME: Eveline Platt CLINIC NO.: [id number] DATE OF SERVICE: June 24, 2020 Some [...] also endorses heavy menses. 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 Per HPI and [...] Protein, Total (g/ (more content not included)... [facility] Progress note 05-13-2020 Note Date & Type Note Facility 05-13-2020 Note HNO ID: [id number] Author: Blake Patel Service: ? Author Type: Physician Type: Progress Notes Filed: 05/13/2020 12:21 PM Note Text: NAME: Eveline Platt NO.: [id number] DATE OF SERVICE: May 13, 2020 Referring [...] also endorses heavy menses. 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 Per HPI and [...] diagnosis) Plan: CBC + DIFF (FOR REMOTE [facility] USE), COMP METABOLIC PANEL, FERRITIN [...] Mother Brain tumor Blake Patel MD, CPE [place], [place] CC: Kimberly Botello MD (DrC) [address] [facility] [address] [facility] Evaluation note Note Date & Type Note Facility Evaluation note No Information [facility] [employer] Other Evaluation note Note Date & Type Note Facility Evaluation note Diagnosis Onset Date DDD (degenerative disc disease), lumbar acute SI joint arthritis acute Wellness examination acute [facility] Work Phone: History general Narrative - Reported [...] History knee surgery Hospitalization History see above [employer] Other Summary Purpose Family History Relationship Condition Age at Onset Recorded Date/T laurita father Hypertension Unknown Diabetes mellitus Unknown Advance Directives Advance Directive Response Recorded Date/ Time Advance Directives No August 25 0 9:06am Hospital Course Note MR#: [id number] [facility] Pt. Name: Eveline Platt Admitted: 11/17/2018 Discharged: [...] a pleasant 38-year-old female, who presented to [facility] on account of left acute visual loss and the patient was brought to the [facility] for further evaluation and management. Has had an extensive evaluation done including ESR, which is normal along (more content not included)... Note [facility] SURGERY Clinical Discharge Summary PERSON INFORMATION Name EVELINE PLATT Age 38 Years 1980 Sex FEMALE Language Ivorian PCP Rosmery ALVA, Kimberly Peñaloza Marital Status Med Service Ambulatory Surgery Acct# Arrival 01/15/2019 08:48:00 Visit Reason SURGERY-RIGHT SALPINGO-OOPHORECTOMY AND DIAGNOSTIC LAPAROSCOPY Acuity LOS 043 00:30 Address: [address] [place] [id number] Comment: PROVIDER INFORMATION VITALS INFORMATION Vital Sign Triage Latest Temp Oral Temp Temporal Temp Intravascular Temp Axillary Temp Rectal 02 Sat 100 % 100 % Respiratory Rate Peripheral Pulse Rate Apical Heart Rate Blood Pressure / 93 mmHg / 81 mmHg Comment: MEDICAL INFORMATION Allergy Info: No known allergies Prescriptions Given: acetaminophen-hydrocodone ([place] 5 mg-325 mg oral tablet) 1 tab(s) [...] section and content) DATE CREATED AUTHOR 12/10/2018 [facility] DATE CREATED AUTHOR AUTHOR'S ORGANIZ ATION 01/22/2019 [facility] DATE CREATED AUTHOR AUTHOR'S ORGANIZ ATION 04/16/[address] [facility] DATE CREATED AUTHOR AUTHOR'S ORGANIZ ATION 05/13/2022 [facility] Comments (unrecognize d section and content) In the event this informatio n is protected by the Federal Confidentiality of Alcohol and Drug Abuse Patient Records regulations: The Federal rules restrict any use of the information to criminally investigate or prosecute any alcohol or drug abuse patient.[facility] event this information is protected by the Federal Confidentiality of Alcohol and Drug Abuse Patient Records regulations: The Federal rules restrict any use of the information to criminally investigate or prosecute any alcohol or drug abuse patient.[facility] the event this information is protected by the Federal Confidentiality of Alcohol and Drug Abuse Patient Records regulations: The Federal rules restrict any use of the information to criminally investigate or prosecute any alcohol or drug abuse patient.[facility] the event this information is protected by the Federal Confidentiality of Alcohol and Drug Abuse Patient Records regulations: The Federal rules restrict any use of the information to criminally investigate or prosecute any alcohol or drug abuse patient.[facility] REASON FOR VISIT (unrecogniz ed section and content) Cough- [phone] Care Teams (unrecognized sec tion and content) [...] BE BASED ON THE PRIMARY CLINICAL RECORDS. [facility] [employer] [facility]. provides no warranty or guarantee of the accuracy or completeness of information in this document.
== END 2024-02-12 13:40 | disposition home or self-care (01) ==
LOC: ER 13:49
PROVIDERS: Emergency Provider Emergency Medicine; PCP Family Medicine
DX: Z48.00 Encounter for change or removal of nonsurgical wound dressing (principal); F17.200 Nicotine dependence, unspecified, uncomplicated
CPT/HCPCS: 99282

== ENCOUNTER 2024-05-21 15:48 | Outpatient (OUT) | payer OTHER, SELFPAY ==
--- NOTE | 2024-05-21 15:52 | MM_ITS ---
Patient Name: ELIEZER BUTLER MR#: [id number] : 1980 Exam Date: 05/21/2024 Ordering Doctor: DR Kimberly Boles M.D. RADIOLOGY REPORT PROCEDURE: MM TOMOSYNTHESIS SCREENING BI COMPARISON: None. INDICATIONS: Screening Calculator Name NCI Breast Cancer Risk Assessment Tool 5 Year Breast Cancer Risk 1.00% Lifetime Breast Cancer Risk 11.60% Personal Breast Cancer No Personal Ovarian Cancer No Treatments None Family Cancers Grandmother-maternal with breast cancer at age 45; Aunt-maternal with breast cancer at age 40; Grandmother-paternal with breast cancer at age 40; Aunt-maternal with colon cancer at age 45; Grandfather-maternal with bone cancer at age 51; Uncle-maternal with colon cancer at age 51. LOCATION: [facility] [place] BREAST COMPOSITION: There are scattered areas of fibroglandular density. FINDINGS: DIAGNOSTIC CATEGORY 1--NEGATIVE. RIGHT BREAST: No significant suspicious finding. LEFT BREAST: No significant suspicious finding. RECOMMENDATIONS: ROUTINE MAMMOGRAM AND CLINICAL EVALUATION IN 12 MONTHS. PLEASE NOTE: A NORMAL MAMMOGRAM DOES NOT EXCLUDE THE POSSIBILITY OF BREAST CANCER. A CLINICALLY SUSPICIOUS PALPABLE LUMP SHOULD BE BIOPSIED. Dictated by: Nick Solares DO on 05/21/2024 at 16:36 Approved by: Nick Solares DO on 05/21/2024 at 16:39
== END 2024-05-21 15:49 | disposition home or self-care (01) ==
LOC: MAMMO 15:48
PROVIDERS: PCP Family Medicine; Visit Provider Family Medicine
DX: Z12.31 Encounter for screening mammogram for malignant neoplasm of breast (principal); Z80.3 Family history of malignant neoplasm of breast; Z80.0 Family history of malignant neoplasm of digestive organs; Z80.8 Family history of malignant neoplasm of other organs or systems
CPT/HCPCS: 77063; 77067

== ENCOUNTER 2024-06-07 18:30 | Emergency (ER) | payer OTHER, SELFPAY ==
[2024-06-07 18:35] VITALS: BP 169/107; PULSE 78; TEMP 37.3; O2SAT 99; BMI 40.1
--- OUTSIDE RECORDS SUMMARY | 2024-06-07 18:36 | XMS_ITS | CCD ---
Author Organization 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 Role Phone CRISTINA RAMIREZ Attending Unavailable JOSELUIS LAO Referring Unavailable KIMBERLY BOTELLO Primary Care Unavailable JENNIFER OLIVIER Admitting Unavailable Kimberly Botello Primary Care Provider LEO Schroeder, DR MALLOY Consulting Unavailable LEO Schroeder, DR MALLOY Attending Unavailable LEO Schroeder, DR MALLOY Admitting Unavailable ROSMERY, DR KIMBERLY Peñaloza Primary Care Unavailable ROSMERY, DR KIMBERLY Peñaloza Primary Care Unavailable ROSMERY, DR KIMBERLY Peñaloza Consulting Unavailable ROSMERY, DR KIMBERLY Peñaloza Attending [...] a day for 10 days Aug, Active Dexlansoprazole 60 mg capsule,biphase delayed releas (2 sources) Start: 04-29-2024 take 1 capsule by mouth once daily Dexlansoprazole 60 mg capsule,biphase delayed releas Active 60 MG PO Daily April 29, 2024 12:00am Start: 05-30-2023 End: 12-11-2023 take 1 capsule by mouth once daily Dexlansoprazole 60 mg capsule,biphase delayed releas Discontinued 60 MG PO Daily May 29, 2023 11:00pm December 11, 2023 2:52pm Iron (2 sources) Iron Active 24 hr metoprolol succinate 50 mg extended release oral tablet (9 sources) beta-Adrenergic Juancarlos Start: 05-30-2023 End: 04-29-2024 take 1 tablet by mouth once daily Metoprolol Succinate 50 mg tablet extended release 24 hr Active 50 MG PO Daily April 29, 2024 12:05pm take 1 tablet by mouth once kenneth y Metoprolol Succinate ER 50 MG take 1 tablet by mouth once daily for 30 days Active pantoprazole (2 sources) Proton Pump Inhibitor Pantoprazole Sodium Active predniSONE 20 mg oral tablet (2 sources) Start: take 2 tablets by mouth every twenty-four hours predniSONE 20 MG 2 tablet Orally Once a day for 6 day(s) Aug, Active Completed/Discontinued Medications Medication Drug Class(es) Dates Sig (Normalized) Sig (Original) azithromycin 250 mg oral tablet (2 sources) Macrolide Antimicrobial Start: 05-30-2023 End: 12-11-2023 Azithromycin 250 mg tablet Discontinued 0 PO .COMPLEX 6 May 29, 2023 11:00pm December 11, 2023 2:52pm For 250 mg dose pack: take 500 mg today (day 1), then 250 mg for 4 days (days 2-5) PO Start: 05-30-2023 End: 12-11-2023 Azithromycin Discontinued 0 [...] 06-02-2022 take 1 capsule by [facility] every twenty-four hours Dexilant 60 MG 1 capsule Orally Once a day for 30 days May, Active ferrous sulfate 325 mg oral tablet (2 sources) Start: 05-30-2023 End: 04-29-2024 take 1 tablet by mouth once daily Ferrous Sulfate (Feosol) 325 mg (65 mg iron) tablet Discontinued 325 MG PO Daily May 29, 2023 11:00pm April 29, 2024 3:32pm Ketorolac (2 sources) Nonsteroidal Anti-inflammatory Drug, Cyclooxygenase Inhibitor Start: 08-24-2019 Toradol per 15 mg Aug, 30 mg meloxicam 15 mg oral tablet (2 sources) Nonsteroidal Anti-inflammatory Drug Start: 12-11-2023 End: 04-29-2024 take 1 tablet by mouth once daily Meloxicam 15 mg tablet Discontinued 15 MG PO Daily December 10, 2023 11:00pm April 29, 2024 3:32pm naproxen 500 mg oral tablet (4 sources) Nonsteroidal Anti-inflammatory Drug Start: 05-30-2023 End: 05-30-2023 take 1 tablet by mouth twice daily as needed Naproxen 500 mg tablet Discontinued 500 MG PO Twice daily as needed May 29, 2023 11:00pm May 30, 2023 12:42pm Start: 08-24-2019 take 1 tablet by vira th every twelve hours at mealtime as needed [...] Episodic Conditions associated with dizziness or vertigo (4 sources) Benign paroxysmal positional vertigo; Translations: [Benign paroxysmal vertigo, right ear] 05-30-2023 Episodic Deficiency and other anemia (4 sources) Anemia; Translations: [Anemia, unspecified] 05-30-2023 Episodic Deficiency and other anemia (2 sources) Iron deficiency anemia; Translations: [Iron deficiency anemia, unspecified] Episodic Esophageal disorders (9 sources) Esophageal reflux finding; Translations: [Esophageal reflux] Onset: 03-28-2017 05-30-2023 Chronic Essential hypertension (4 sources) Essential hypertension; Translations: [Essential (primary) hypertension] 05-30-2023 Chronic Fluid and electrolyte disorders (3 sources) Hypokalemia; Translations: [Hypokalemia] Onset: 05-25-2021 Episodic Malaise and fatigue (2 sources) Fatigue; Translations: [Other fatigue] Episodic Nausea and vomiting (2 sources) Nausea; Translations: [Nausea] Episodic Nonspecific chest pain (2 sources) Chest pain; Translations: [Chest pain, unspecified] Episodic Other aftercare (1 source) Other superintendent terminal (current) drug therapy; Translations: [OTH RETIREMENT CURRENT DRUG THERAPY] Onset: 05-12-2022 Episodic Other [...] Cough; Translations: [Acute cough] 05-30-2023 Episodic Other lower respiratory disease (1 source) Cough; Translations: [Acute cough] 05-30-2023 Episodic Other nervous system disorders (4 sources) Loss of sense of smell; Translations: [...] Loss of appetite; Translations: [Anorexia] Episodic Other screening for suspected conditions (not mental disorders or infectious disease) (2 sources) Patient encounter status; Translations: [Encounter for screening for malignant neoplasm of colon] 04-29-2024 Episodic Other upper respiratory infections (5 sources) Chronic sinusitis; Translations: [Chronic sinusitis, unspecified] Chronic Other upper respiratory infections (8 sources) Acute pharyngitis, unspecified; Translations: [Acute pharyngitis] Onset: 05-10-2022 Episodic Screening and history of mental health and substance abuse codes (1 source) Personal history of nicotine dependence; Translations: [PERSONAL HISTORY OF NICOTINE DEPEND] Onset: 05-12-2022 Episodic Spondylosis; intervertebral disc disorders; other back problems (8 sources) Sacroiliac disorder; 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 Da Graham Basophils/100 WBC (Bld) 0.3 % Normal 0.2-2.0 [facility] Comment on above: Performed By: #### C BC #### [facility] [address] [place] [address] Dr. Da Graham EO # 0.2 103/ul Normal 0.0-0.7 [facility] Comment on above: Performed By: #### C BC #### [facility] [address] [place] [address] Dr. Da Graham Eosinophils/100 WBC (Bld) 2.3 % Normal 0.9-7.0 [facility] Comment on above: Performed By: #### C BC #### [facility] [address] [place] [address] Dr. Da Graham Erythrocyte distribution width (RBC) [Ratio] 11.5 % Normal 11.0-15.0 [facility] Comment on above: Performed By: #### C BC #### [facility] [address] [place] [address] Dr. Da Graham Hematocrit (Bld) [Volume fraction] 41.0 % Normal 36.0-48.0 [facility] Comment on above: Performed By: #### C BC #### [facility] [address] [place] [address] Dr. Da Graham Hemoglobin (Bld) [Mass/Vol] 13.5 g/dL Normal 12.0-16.0 [facility] Comment on above: Performed By: #### C BC #### [facility] [address] [place] [address] Dr. Da Graham IG # 0.04 10e3/ul Critically high 0.00-0.03 [facility] Comment on above: Performed By: #### C BC #### [facility] [address] [place] [address] Dr. Da Graham IG % 0.5 % Normal 0.0-0.5 [facility] Comment on above: Performed By: #### C BC #### [facility] [address] [place] [address] Dr. Da Graham LYMPH # 1.9 103/ul Normal 1.2-3.8 [facility] Comment on above: Performed By: #### C BC #### [facility] [address] [place] [address] Dr. Da Graham Lymphocytes/100 WBC (Bld) 25.2 % Normal 20.5-60.0 [facility] Comment on above: Performed By: #### C BC #### [facility] [address] [place] [address] Dr. Da Graham MANUAL DIFF REQ NO Normal [facility] Comment on above: Performed By: #### C BC #### [facility] [address] [place] [address] Dr. Da Graham MCH (RBC) [Entitic mass] 31.6 pg Normal 26.7-34.0 [facility] Comment on above: Performed By: #### C BC #### [facility] [address] [place] [address] Dr. Da Graham MCHC (RBC) [Mass/Vol] 32.9 g/dL Normal 29.9-35.2 [facility] Comment on above: Performed By: #### C BC #### [facility] [address] [place] [address] Dr. Da Graham MCV (RBC) [Entitic vol] 96.0 fL Normal 81.0-99.0 [facility] Comment on above: Performed By: #### C BC #### [facility] [address] [place] [address] Dr. Da Graham MONO # 0.6 103/ul Normal 0.3-0.8 [facility] Comment on above: Performed By: #### C BC #### [facility] [address] [place] [address] Dr. Da Graham Monocytes/100 WBC (Bld) 7.7 % Normal 1.7-12.0 [facility] Comment on above: Performed By: #### C BC #### [facility] [address] [place] [address] Dr. Da Graham NEUT # 4.8 103/ul Normal 1.4-6.5 [facility] Comment on above: Performed By: #### C BC #### [facility] [address] [place] [address] Dr. Da Graham Neutrophils/100 WBC (Bld) 64.0 % Normal 43.0-75.0 [facility] Comment on above: Performed By: #### C BC #### [facility] [address] [place] [address] Dr. Da Graham Platelet mean volume (Bld) [Entitic vol] 11.4 fL Normal 9.5-13.5 [facility] Comment on above: Performed By: #### C BC #### [facility] [address] [place] [address] Dr. Da Graham PLT 247 103/ul Normal 150-450 [facility] Comment on above: Performed By: #### C BC #### [facility] [address] [place] [address] Dr. Da Graham RBC 4.27 106/ul Normal 4.20-5.40 [facility] Comment on above: Performed By: #### C BC #### [facility] [address] [place] [address] Dr. Da Graham WBC 7.5 103/ul Normal 4.0-11.0 [facility] Comment on above: Performed By: #### C BC #### [facility] [address] [place] [address] Dr. Da Graham FERRITINon 05-21-2021 Ferritin [Mass/Vol] 132.0 ng/mL Normal 6.2-137.0 [facility] Comment on above: Performed By: #### F ERR #### [facility] [address] [place] [address] Dr. Da Graham PROF CHEM 8 (BAS METB)on Anion gap [Moles/Vol] 11.2 mmol/L Normal [facility] Comment on above: Performed By: #### B MP #### [facility] [address] [place] [address] Dr. Da Graham Calcium [Mass/Vol] 8.0 mg/dL Critically low 8.4-10.2 [facility] Comment on above: Performed By: #### B MP #### [facility] [address] [address] [address] Da Graham Chloride [Moles/Vol] 104 mmol/L Normal 98-107 [facility] Comment on above: Performed By: #### B MP #### [facility] [address] [address] [address] Da Graham CO2 [Moles/Vol] 27.4 mmol/L Normal 22.0-30.0 [facility] Comment on above: Performed By: #### B MP #### [facility] [address] [address] [address] Da Graham Creatinine [Mass/Vol] 0.66 mg/dL Normal 0.52-1.04 [facility] Comment on above: Performed By: #### B MP #### [facility] [address] [address] [address] Da Graham EGFR-AF CYPRIOT >60 Normal >=60 [facility] Comment on above: Performed By: #### B MP #### [facility] [address] [address] [address] Da Graham EGFR-NON AF CYPRIOT >60 Normal >=60 [facility] Comment on above: Performed By: #### B MP #### [facility] [address] [address] [address] Da Graham Glucose [Mass/Vol] 129 mg/dL Critically high 74-106 [facility] Comment on above: Performed By: #### B MP #### [facility] [address] [address] [address] Da Graham Potassium [Moles/Vol] 3.6 mmol/L Normal 3.4-5.0 [facility] Comment on above: Performed By: #### B MP #### [facility] [address] [place] [address] Dr. Da Graham Sodium [Moles/Vol] 139 mmol/L Normal 137-145 [facility] Comment on above: Performed By: #### B MP #### [facility] [address] [address] [address] Da Graham Urea nitrogen [Mass/Vol] 10.0 mg/dL Normal 7.0-17.0 [facility] Comment on above: Performed By: #### B MP #### [facility] [address] [address] [address] aD Graham Urea nitrogen/Creatinine [Mass ratio] 15.2 mg/mg Normal [facility] Comment on above: Performed By: #### B MP #### [facility] [address] [address] [address] Da Luo 09-16-2020 CNPN Telephone (NCCAP) EVELINE PLATT ([id number]) 1980 F Date Time Provider Department 09/16/20 [facility] During your visit today, we recorded the following information about you: Alycia Marie [facility] 09/16/2020 1:53 PM Signed Patient did not show for appointment. Allergies As of Date: 09/16/2020 (No Known Allergies) Date Reviewed: 06/29/2020 Reviewed by: Cat Fofana - Fully Assessed Reason for Visit: Missed [...] Encounter Status:Closed by ALYCIA FELIX on 09/17/20 Normal [facility] CNOVSPon 06-24-2020 CNOVSP Visit (SP) Office ([place]) PLATTEVELINE OBANDO ([id number]) 1980 F Date Time Provider Department 06/24/20 2:15 PM BLAKE PATEL During your visit today, we recorded the following information about you: Temperature Pulse Respiration Blood pressure 97.4 degrees 98/minute 16/minute 135/68 Weight Height Last Period 94.1 kg 1.549 m 05/25/20 Blake Patel MD 06/25/2020 6:20 AM Signed NAME: Eveline Platt CLINIC NO.: [id number] DATE OF SERVICE: June 24, 2020 Some [...] also endorses heavy menses. 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 Per HPI and [...] 50 mg by mouth once daily. pantoprazole (PROTONIX) 40 mg tablet Take 40 mg [...] (mg/dL) Date (more content not included)... Normal [facility] Comp Metabolic Panelon 06-24 Albumin [Mass/Vol] 4.5 g/dL Normal 3.9-4.9 [facility] ALP [Catalytic activity/Vol] 86 U/L Normal 34-123 [facility] ALT [Catalytic activity/Vol] 27 U/L Normal 7-38 [facility] Anion gap [Moles/Vol] 7 mmol/L Low 9-18 [facility] AST [Catalytic activity/Vol] 22 U/L Normal 13-35 [facility] Bilirubin [Mass/Vol] 0.2 mg/dL Normal 0.2-1.3 [facility] Calcium [Mass/Vol] 9.0 mg/dL Normal 8.5-10.2 [facility] Chloride [Moles/Vol] 106 mmol/L High 97-105 [facility] CO2 [Moles/Vol] 25 mmol/L Normal 22-30 [facility] Creatinine [Mass/Vol] 0.64 mg/dL Normal 0.58-0.96 [facility] eGFR- Amer. >60 Normal [facility] eGFR-All Other Races >60 Normal [facility] Comment on above: Result Comment: eGFR (Estimated [...] [Mass/Vol] 101 mg/dL High 74-99 [facility] Comment on above: Result Comment: The [place] [employer] (ADA) provides guidance for cutoff [...] Standards of Medical Care in Diabetes 2016, [place] [employer]. Diabetes Care. 2016.39(Suppl 1). Potassium [Moles/Vol] 3.9 mmol/L Normal 3.7-5.1 [facility] Protein [Mass/Vol] 7.1 g/dL Normal 6.3-8.0 [facility] Sodium [Moles/Vol] 138 mmol/L Normal 136-144 [facility] Urea nitrogen [Mass/Vol] 10 mg/dL Normal 7-21 [facility] Ferritinon 06-24-2020 Ferritin [Mass/Vol] 64.2 ng/mL Normal 14.7-205.1 [facility] Comment on above: Performed By: #### F ERR, IRON #### [facility] [address] [place] [address] Iron and TIBCon 06-24-2020 Iron [Mass/Vol] 43 ug/dL Normal 41-186 [facility] Comment on above: Performed By: #### F ERR, IRON #### [facility] [address] [place] [address] TIBC 305 ug/dL Normal 232-386 [facility] Comment on above: Performed By: #### F ERR, IRON #### [facility] [address] [place] [id number] Transferrin Saturatn 14 % Low 15-57 [facility] Comment on above: Performed By: #### F ERR, IRON #### [facility] [address] [place] [id number] Remote CBCDIF (for [facility] use o nly)on 06-24-2020 Abs Baso <0.03 Normal <0.11 [facility] Abs [place] 0.76 k/uL Normal <0.87 [facility] Abs Neut 4.47 k/uL Normal 1.45-7.50 [facility] Absolute nRBC <0.01 Normal <0.01 [facility] Basophils/100 WBC (Bld) 0.3 % Normal [facility] DTYPE Auto Diff Normal [facility] Eosinophils (Bld) [#/Vol] 0.13 10*3/uL Normal <0.46 [facility] Eosinophils/100 WBC (Bld) 1.9 % Normal [facility] Erythrocyte distribution width (RBC) [Ratio] 13.2 % Normal 11.5-15.0 [facility] Hematocrit (Bld) [Volume fraction] 40.6 % Normal 36.0-46.0 [facility] Hemoglobin (Bld) [Mass/Vol] 13.1 g/dL Normal 11.5-15.5 [facility] Lymphocytes (Bld) [#/Vol] 1.60 10*3/uL Normal 1.00-4.00 [facility] Lymphocytes/100 WBC (Bld) 22.9 % Normal [facility] MCH 29.4 pG Normal 26.0-34.0 [facility] MCHC (RBC) [Mass/Vol] 32.3 g/dL Normal 30.5-36.0 [facility] MCV (RBC) [Entitic vol] 91.2 fL Normal 80.0-100.0 [facility] Monocytes/100 WBC (Bld) 10.9 % Normal [facility] Neutrophils/100 WBC (Bld) 64.0 % Normal [facility] NRBCs 0.0 /100 WBC Normal 0 [facility] Platelet mean volume (Bld) [Entitic vol] 11.5 fL Normal 9.0-12.7 [facility] Platelets (Bld) [#/Vol] 235 10*3/uL Normal 150-400 [facility] RBC (Bld) [#/Vol] 4.45 10*6/uL Normal 3.90-5.20 [facility] WBC (Bld) [#/Vol] 6.98 10*3/uL Normal 3.70-11.00 [facility] CNOVSPon 05-13-2020 CNOVSP Visit (SP) Office ([place]) EVELINE PLATT ([id number]) 1980 F Date Time Provider Department 05/13/20 11:15 AM BLAKE PATEL During your visit today, we recorded the following information about you: Temperature Pulse Respiration Blood pressure 97.3 degrees 79/minute 18/minute 142/87 Weight Height 92.6 kg 1.549 m Blake Patel MD 05/13/2020 12:21 PM Signed NAME: Eveline Platt CLINIC NO.: [id number] DATE OF SERVICE: May 13, 2020 Referring [...] also endorses heavy menses. 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 Normal [facility] Comp Metabolic Panelon 05-13 Albumin [Mass/Vol] 4.4 g/dL Normal 3.9-4.9 [facility] ALP [Catalytic activity/Vol] 81 U/L Normal 34-123 [facility] ALT [Catalytic activity/Vol] 38 U/L Normal 7-38 [facility] Anion gap [Moles/Vol] 7 mmol/L Low 9-18 [facility] AST [Catalytic activity/Vol] 29 U/L Normal 13-35 [facility] Bilirubin [Mass/Vol] 0.3 mg/dL Normal 0.2-1.3 [facility] Calcium [Mass/Vol] 9.2 mg/dL Normal 8.5-10.2 [facility] Chloride [Moles/Vol] 105 mmol/L Normal 97-105 [facility] CO2 [Moles/Vol] 27 mmol/L Normal 22-30 [facility] Creatinine [Mass/Vol] 0.69 mg/dL Normal 0.58-0.96 [facility] eGFR- Amer. >60 Normal [facility] eGFR-All Other Races >60 Normal [facility] Comment on above: Result Comment: eGFR (Estimated [...] [Mass/Vol] 127 mg/dL High 74-99 [facility] Comment on above: Result Comment: The [place] Diabetes [employer] (ADA) provides guidance for cutoff [...] Standards of Medical Care in Diabetes 2016, [place] [employer]. Diabetes Care. 2016.39(Suppl 1). Potassium [Moles/Vol] 4.2 mmol/L Normal 3.7-5.1 [facility] Protein [Mass/Vol] 7.1 g/dL Normal 6.3-8.0 [facility] Sodium [Moles/Vol] 139 mmol/L Normal 136-144 [facility] Urea nitrogen [Mass/Vol] 9 mg/dL Normal 7-21 [facility] Ferritinon 05-13-2020 Ferritin [Mass/Vol] 45.5 ng/mL Normal 14.7-205.1 [facility] Comment on above: Performed By: #### F ERR, IRON #### [facility] [address] [place], [place] [address] Iron and TIBCon 05-13-2020 Iron [Mass/Vol] 85 ug/dL Normal 41-186 [facility] Comment on above: Performed By: #### F ERR, IRON #### [facility] [address] [place], [place] [address] TIBC 317 ug/dL Normal 232-386 [facility] Comment on above: Performed By: #### F ERR, IRON #### [facility] [address] [place], [place] [address] Transferrin Saturatn 27 % Normal 15-57 [facility] Comment on above: Performed By: #### F ERR, IRON #### [facility] [address] [place] [address] Remote CBCDIF (for [facility] use o nly)on 05-13-2020 Abs Baso <0.03 Normal <0.11 [facility] Abs [place] 0.64 k/uL Normal <0.87 [facility] Abs Neut 3.85 k/uL Normal 1.45-7.50 [facility] Absolute nRBC <0.01 Normal <0.01 [facility] Basophils/100 WBC (Bld) 0.3 % Normal [facility] DTYPE Auto Diff Normal [facility] Eosinophils (Bld) [#/Vol] 0.19 10*3/uL Normal <0.46 [facility] Eosinophils/100 WBC (Bld) 3.3 % Normal [facility] Erythrocyte distribution width (RBC) [Ratio] 13.4 % Normal 11.5-15.0 [facility] Hematocrit (Bld) [Volume fraction] 38.8 % Normal 36.0-46.0 [facility] Hemoglobin (Bld) [Mass/Vol] 12.7 g/dL Normal 11.5-15.5 [facility] Lymphocytes (Bld) [#/Vol] 1.05 10*3/uL Normal 1.00-4.00 [facility] Lymphocytes/100 WBC (Bld) 18.2 % Normal [facility] MCH 29.5 pG Normal 26.0-34.0 [facility] MCHC (RBC) [Mass/Vol] 32.7 g/dL Normal 30.5-36.0 [facility] MCV (RBC) [Entitic vol] 90.2 fL Normal 80.0-100.0 [facility] Monocytes/100 WBC (Bld) 11.1 % Normal [facility] Neutrophils/100 WBC (Bld) 67.1 % Normal [facility] NRBCs 0.0 /100 WBC Normal 0 [facility] Platelet mean volume (Bld) [Entitic vol] 11.2 fL Normal 9.0-12.7 [facility] Platelets (Bld) [#/Vol] 240 10*3/uL Normal 150-400 [facility] RBC (Bld) [#/Vol] 4.30 10*6/uL Normal 3.90-5.20 [facility] WBC (Bld) [#/Vol] 5.77 10*3/uL Normal 3.70-11.00 [facility] Coding Summaryon 01-22-2019 Coding Summary CODING DATE: 01/22/2019 [facility] STATUS: Home 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 [...] PROC APC STAT DESCRIPTION DOCTOR NAME DATE [id number] J1 Laparoscopy, surgical; Eliezer Torres DO with removal of adnexal structures (partial or total oophorectomy and/or salpingectomy) RT Right side (used to identify procedures performed on the right side of the body) [id number] J1 Laparoscopy, surgical; Eliezer Torres DO with [...] Awilda Edouard Date Saved: 01/22/2019 10:54 am [facility] - AP Resultson 9 Lab - AP Results [id number] [facility] MAGR Postoperative Recordon 01-21-2019 MAGR Postoperative Record [facility] Phase II Record Summary Primary Physician: Eliezer Torres DO Finalized Date/Time: 01/21/19 13:15:02 Pt. Name: EVELINE PLATT Praveen Muñoz/Sex: 1980 FEMALE Med Rec #: [id number] Physician: Eliezer Torres DO Financial #: [id number] Pt. Type: D Room/Bed: / Admit/Disch: 01/15/19 [...] Signed By: Brittany Soler RN 01/21/19 13:15 [facility] Pathology Sendout Teston Pathology Send Out. See Report [facility] Comment on above: Order Comment: Right fallopian tube and right ovaryPost op Dx: Pelvic pain Performed By: #### 2 [id number] ####[facility] (DEFAULT)[address] [place] [address] History and Physicalon 01-17 History and Physical [id number] .00OTGTIFF [facility] Operative Report - Surgeon/P sourav 01-17-2019 Operative Report - Surgeon/Physician [id number] .00OTGTIFF [facility] Provider Orderson 01-17-2019 Provider Orders [id number] 01-16-2019 Consent Forms [id number] [facility] Intraoperative Recordon 01-16-2019 MAGR Intraoperative Record MAGR Intra-Op Record Summary Primary Physician: Eliezer Torres DO Finalized Date/Time: 01/16/19 15:11:50 Pt. Name: LUKE EVELINEABRAM Morton D.O.B./Sex: 1980 FEMALE Med Rec #: [id number] Physician: Eliezer Torres DO Financial #: [id number] Pt. Type: D Room/Bed: / Admit/Disch: 01/15/19 [...] Entry 3 Case Attendee Eliezer Torres DO, Satya S MD McKenna RN, Jennifer Role Performed Surgeon - Primary Anesthesiologist of Teacher Home Therapy Record Time In 01/15/19 11:36:00 01/15/19 11:36:00 01/15/19 11:36:00 Time Out 01/15/19 13:26:00 01/15/19 13:26:00 01/15/19 13:26:00 Procedure Tubal Ligation Tubal Ligation Tubal Ligation Laparoscopic Laparoscopic Laparoscopic Last Modified By: Rodriguez LEE, Bianka Frias RN, Bianka Meyer RN 01/15/19 13:33:51 01/15/19 13:32:06 01/15/19 13:32:06 Entry 4 Entry 5 Entry 6 Case Attendee Zev BALDERAS, Funmilayo Thrasher Linda M Role Performed Scrub Personnel Scrub Personnel Wealth Management Manager Time In 01/15/19 11:36:00 01/15/19 11:36:00 01/15/19 11:36:00 Time Out 01/15/19 13:26:00 01/15/19 13:26:00 01/15/19 13:26:00 Procedure Tubal Ligation Tubal Ligation Tubal Ligation Laparoscopic Laparoscopic Laparoscopic Last Modified By: Bianka Frias RN, RN, Bianka Meyer RN 01/15/19 13:34:13 01/15/19 13:34:13 01/15/19 13:32:06 Entry 7 Case Attendee Brittany Guthrie RN Role Performed Teacher Home Therapy Time In 01/15/19 11:36:00 Time Out 01/15/19 [...] Uncrossed? Yes Press Points Checked Yes Additional [place] Pad Positioning Device Safety Strap Information Outcome [...] Prep By Bianka Frias RN, Chlorhexidine Gluconate Jerri LEE, Brittany Morton and Alcohol Prep Area (Im.270) Abdomen, Perineum [...] the Initial Count Sharps Method Initial Counts Jerri LEE, Brittany Praveen, Initial Count Time 01/15/19 11:50:00 Performed By Zev LOSS CLAIM CLERK, Zamzam Counts Verification Final Counts Items Included in Sponges, Sharps Final Count Method Manual Final Count Final Count Status Correct Final Counts Bianka Frias RN, Performed By Zev BALDERAS, Zamzam Final Count Time 01/15/19 13:10:00 Surgeon notified [...] By: Bianka Frias RN 01/16/19 15:11 Normal [facility] Operative Report - Surgeon/P sourav 01-16-2019 [...] years ago from a laparoscopy. Next, an [place] uterine manipulator was advanced into the cervix [...] a subcuticular manner on the skin. The [place] uterine manipulator was then removed from the [...] stable condition. Eliezer Torres DO JOB #: [id number] [Electronically Signed on: 01/21/2019 09:10 EST] Eliezer Torres DO [Verified on: 01/21/2019 09:10 EST] Eliezer Torres DO [Transcribed on: 01/16/2019 10:53 EDT] [facility] Telemetry Stripson 9 Telemetry Strips [id number] .00OTGTIFF [facility] Anesthesia Noteon 01-15-2019 Anesthesia Note Patient: EVELINE PLATT Age: 38 years Sex: FEMALE : 1980 Associated Diagnoses: None Author: Tray Gill MD Preoperative Information Anesthesia history: Patient history: No difficult intubation, No malignant hyperthermia. Family history: No malignant hyperthermia. Review of Systems Respiratory: No shortness of breath, No apnea. Cardiovascular: No known VT, No chest pain. Gastrointestinal: Heartburn. Health Status Allergies: Allergic Reactions (All) No known allergies Current medications: Home Medications (1) Active pantoprazole 40 mg oral delayed release tablet 40 mg = 1 tab(s), PO, BID Problem list (past medical history): All Problems Right ovarian cyst / SNOMED CT 884337534 / Confirmed DDD (degenerative disc disease), lumbosacral / SNOMED CT 301467304 / Confirmed Eye symptom / SNOMED CT 0311839985 / Confirmed GERD (gastroesophageal reflux disease) / SNOMED CT 302677472 / Confirmed Resolved: Chest pain / SNOMED CT 67510445 Resolved: Palpitations / SNOMED CT 929906758 Canceled: DDD (degenerative disc disease), thoracic / SNOMED CT 242407544 Histories Family History: Esophagus Mother Comments: 04/26/2017 16:57 Aicha Wasserman RN esophagus extra long Kidney Brother Comments: 04/26/2017 16:57 Aicha Wasserman RN kidney transplant Thyroid disease Mother Brother Diabetes mellitus type I Father Brain tumor Mother High blood pressure Father Brother Osteoarthritis Mother Coronary heart disease Father Procedure history: Polypectomy of cervix (115607067) on 04/26/2017 at 36 Years. Comments: 01/02/2019 13:19 Haritha Barger RN ovarian cyst. Patient stated laceration under cervix also with repair Dilation and curettage (80437423) on 03/20/2010 at 29 Years. Comments: 04/26/2017 16:00 Aicha Wasserman hemorrhaged 1 hour after procedure was done Dilation and curettage (37805670). Arthroscopy of knee (725425681). Comments: 01/02/2019 13:00 Haritha Barger RN left [...] (JAN 15 09:06) SBP H 141mmHg (JAN 15 09:07) DBP H 95mmHg (JAN 15 09:07) SpO2 97 % (JAN 15:06) General: Alert and oriented, No acute distress. Airway: Mallampati classification: II (soft palate, fauces, uvula visible). Mouth: Within normal limits. Respiratory: Respirations are non-labored. Cardiovascular: Normal rate. Review / Management Results review: Lab results: 01/15/2019 8:58 EDT U Preg Negative . Laboratory Results Plan [place] [employer]#( A) physical status classification: Class II. Anesthetic Preoperative Plan Anesthesia: General. . Anesthetic plan, risks, benefits, and alternatives discussed with the patient and/or family. Patient verbalized understanding. Family/Guardian present. Informed consent was given. Consent was signed by the patient. [Electronically Signed on: 01/15/2019 12:03 EDT] Tray Gill MD [Verified on: 01/15/2019 12:03 EDT] Tray Gill MD [facility] Inpatient Patient Summaryon 01-15-2019 Inpatient [place] [address] Patient Discharge Instructions Name: PLATT EVELINE M : 1980 Patient Address: [address] [place] [address] Primary Care Provider: Name: Kimberly Botello MD After you are discharged if you find you have any questions, please, call [phone] ext [phone] to speak to a nurse. Discharge Diagnosis: Pelvic pain Prescription Information: If you have been given a prescription for narcotics, seek immediate medical attention if you have any difficulty breathing or any sudden status changes such as confusion and sleepiness. If you or anyone you know is experiencing suicidal thoughts, mental health, alcohol and/or drug addiction problems; contact the [facility] 10/10 Crisis Hotline -Text 4HOPE to 449590. If you received any narcotics, sedation, or [...] business decisions or sign any legal documents [facility] would like to thank you for allowing us to assist you with your healthcare needs. The following includes patient education materials and information regarding your injury/illness. EVELINE PLATT has been given the following list of follow-up instructions, prescriptions, and patient education materials: Follow-up Instructions With: Address: When: Eliezer Torres [address] [place] [address] [facility] (1) In 2 weeks 01/29/2019 With: Address: When: Kimberly Botello [address] [place] [address] [facility] (1) Medications During the course of your visit, your medication list was updated with the most current information. The details of those changes are reflected below: New Medications Printed Prescriptions acetaminophen-hydroco done ([place] 5 mg-325 mg oral tablet) 1 tab(s) [...] you can keep with you. acetaminophen-hydroco done ([place] 5 mg-325 mg oral tablet) 1 tab(s) [...] and abdomen. HOME CARE INSTRUCTIONS ? Take mwya-zxg-okftihl and prescription medicines only as told by [...] and water are not available, use hand copy clerk. ? Change your dressings (Band Aids) daily [...] provider. Document Released: 02/15/2016 Document Reviewed: 02/15/2016 [employer] Interactive Patient Education ?2016 [employer]. Viruses or Bacteria What?s got you sick? [...] for Disease Control and Prevention November 2013 [facility] 9 [facility] PAC[facility] Record [facility] PACU Record Summary Primary Physician: Eliezer Torres DO Finalized Date/Time: 01/15/19 14:27:14 Pt. Name: PLATTEVELINE D.O.B./Sex: 1980 FEMALE Med Rec #: [id number] Physician: Eliezer Torres DO Financial #: [id number] Pt. Type: D Room/Bed: / Admit/Disch: 01/15/19 [...] Signed By: Paty Anne RN 01/15/19 14:27 [facility] MAGR Preoperative Record MAGR Pre-Op Record Summary Primary Physician: Eliezer Torres DO Finalized Date/Time: 01/15/19 12:44:26 Pt. Name: EVELINE PLATT/Sex: 1980 FEMALE Med Rec #: [id number] Physician: Eliezer Torres DO Financial #: [id number] Pt. Type: D Room/Bed: / Admit/Disch: 01/15/19 [...] Signed By: Bianka Frias RN 01/15/19 12:44 Normal [facility] Patient Handouton 01-15-2019 Patient Handout Diagnostic [...] and abdomen. HOME CARE INSTRUCTIONS ? Take akqp-hev-goyufvk and prescription medicines only as told by [...] and water are not available, use hand copy clerk. ? Change your dressings (Band Aids) daily [...] provider. Document Released: 02/15/2016 Document Reviewed: 02/15/2016 [employer] Interactive Patient Education ?2016 [employer] [facility] Test Urine 1on U Preg Negative [facility] Comment on above: Performed By: #### 3 [id number] #### [facility] (DEFAULT) [address] [place] [place] [address] U Preg Internal Control Pass [facility] Comment on above: Performed By: #### 3 [id number] #### [facility] (DEFAULT) [address] [place] [place] [address]492 Progress Note - Nurseon 12-19 Progress Note - Nurse Pre op phone call complete. Spoke with patient, confirmed time of arrival for 0900 on 01/14/19 [Electronically Signed on: 01/14/2019 10:13 EDT] Haritha Lee RN [Verified on: 01/14/2019 10:13 EDT] Haritha Lee RN [facility] ABORhon 01-13-2019 ABO and Rh group Nom (Bld) Hx Check: Found Anti-A: 0 Anti-B: 0 Anti-D: 4+ DCon: NT A1: 4+ B: 4+ ABORh Interp: O POS [facility] Comment on above: Performed By: #### 2 [id number], [id number], [id number], [id number] #### [facility] (DEFAULT) [address] [place] [address] 02999 ABSC Gelon 01-13-2019 ABSC Gel Negative [facility] Comment on above: Performed By: #### 2 [id number], [id number], [id number], [id number] #### [facility] (DEFAULT) [address] [place] [address] Blood Bank IDon 01-13-2019 Blood Bank ID BBID: [id number] [facility] Comment on above: Performed By: #### 2 [id number], [id number], [id number], [id number] #### [facility] (DEFAULT) [address] [place] [address] Hgbon 01-13-2019 Hemoglobin (Bld) [Mass/Vol] 13.9 g/dL Normal 11.3-15.9 [facility] Comment on above: Performed By: #### 2 [id number], [id number], [id number], [id number] #### [facility] (DEFAULT) [address] [place] [address] Coding Summaryon 01-10-2019 Coding Summary CODING DATE: 01/10/2019 [facility] STATUS: Home 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 [...] Bianka Silva Date Saved: 01/10/2019 04:33 pm [facility] Provider Orderson 01-07-2019 Provider Orders [id number] .00OTGTIFF [facility] .Auto Diff 1on 01-02-2019 Auto [place] % 9 % Normal 1-12 [facility] Comment on above: Performed By: #### 7 [id number], [id number] #### [facility] (DEFAULT) [address] [place] [address] Baso Abs# 0.0 x10 Normal 0.0-0.2 [facility] Comment on above: Performed By: #### 7 [id number], [id number] #### [facility] (DEFAULT) [address] [place] [place] [address] Basophils/100 WBC (Bld) 0.4 % Normal 0.2-2.0 [facility] Comment on above: Performed By: #### 7 976257, [id number] #### [facility] (DEFAULT) [address] [place] [address] Eos Abs# 0.1 x10 Normal 0.0-0.4 [facility] Comment on above: Performed By: #### 7 032743, [id number] #### [facility] (DEFAULT) [address] [place] [place] [address]7517 Eosinophils/100 WBC (Bld) 1.7 % Normal 0.9-4.0 [facility] Comment on above: Performed By: #### 7 765638, [id number] #### [facility] (DEFAULT) [address] [place] [address] 36345 Lymphocytes (Bld) [#/Vol] 1.4 x10 Normal 1.3-2.9 [facility] Comment on above: Performed By: #### 7 [id number], [id number] #### [facility] (DEFAULT) [address] [place] [address] 86888 Lymphocytes/100 WBC (Bld) 26 % Normal 14-48 [facility] Comment on above: Performed By: #### 7 986356, [id number] #### [facility] (DEFAULT) [address] [place] [address] [place] Abs# 0.5 x10 Normal 0.0-0.8 [facility] Comment on above: Performed By: #### 7 985698, [id number] #### [facility] (DEFAULT) [address] [place] [address] 11895 Neut Abs# 3.3 x10 Normal 1.5-9.2 [facility] Comment on above: Performed By: #### 7 424960, [id number] #### [facility] (DEFAULT) [address] [place] [address]36 Neutrophils/100 WBC (Bld) 63 % Normal 44-88 [facility] Comment on above: Performed By: #### 7 423606, [id number] #### [facility] (DEFAULT) [address] [place] [address] CBC w/ Auto Diffon 9 Erythrocyte distribution width (RBC) [Ratio] 12.6 % Normal 11.5-15.0 [facility] Comment on above: Performed By: #### 7 078646, [id number] #### [facility] (DEFAULT) [address] [place] [address] Hematocrit (Bld) [Volume fraction] 39.8 % Normal 33.7-40.4 [facility] Comment on above: Performed By: #### 7 752586, [id number] #### [facility] (DEFAULT) [address] [place] [address] Hemoglobin (Bld) [Mass/Vol] 13.2 g/dL Normal 11.3-15.9 [facility] Comment on above: Performed By: #### 7 465060, [id number] #### [facility] (DEFAULT) [address] [place] [address] Man Diff? Auto Normal [facility] Comment on above: Performed By: #### 7 092256, [id number] #### [facility] (DEFAULT) [address] [place] [address] MCH (RBC) [Entitic mass] 31 pg Normal 24-34 [facility] Comment on above: Performed By: #### 7 505209, [id number] #### [facility] (DEFAULT) [address] [place] [address] MCHC (RBC) [Mass/Vol] 33 g/dL Normal 26-37 [facility] Comment on above: Performed By: #### 7 603616, [id number] #### [facility] (DEFAULT) [address] [place] [address] MCV (RBC) [Entitic vol] 93 fL Normal 81-100 [facility] Comment on above: Performed By: #### 7 076594, [id number] #### [facility] (DEFAULT) [address] [place] [address]7627 Platelet mean volume (Bld) [Entitic vol] 11.2 fL High 6.3-10.2 [facility] Comment on above: Performed By: #### 7 613785, [id number] #### [facility] (DEFAULT) [address] [place] [address]18 Platelets (Bld) [#/Vol] 242 x10 Normal 138-427 [facility] Comment on above: Performed By: #### 7 689973, [id number] #### [facility] (DEFAULT) [address] [place] [address] 57245 RBC (Bld) [#/Vol] 4.26 x10 Normal 3.70-5.30 [facility] Comment on above: Performed By: #### 7 481663, [id number] #### [facility] (DEFAULT) [address] [place] [address] 21447 WBC (Bld) [#/Vol] 5.2 x10 Normal 3.5-10.5 [facility] Comment on above: Performed By: #### 7 116566, [id number] #### [facility] (DEFAULT) [address] [place] [address]3271 BASIC METABOLIC PANELon 09-0 Calcium [Mass/Vol] 8.8 mg/dL Normal 8.6-10.3 [facility] Comment on above: Order Comment: No: D o not add to previous draw Performed By: #### 4 6413, 58835 #### [facility] [address] [place] [address], [place] Chloride [Moles/Vol] 108 mmol/L High 98-107 [facility] Comment on above: Order Comment: No: D o not add to previous draw Performed By: #### 4 6413, 10385 #### [facility] [address] [place] [address], [place] CO2 [Moles/Vol] 23 mmol/L Normal 21-31 [facility] Comment on above: Order Comment: No: D o not add to previous draw Performed By: #### 4 6413, 47663 #### [facility] [address] [place] [address], [place] Creatinine [Mass/Vol] 0.59 mg/dL Low 0.60-1.20 [facility] Comment on above: Order Comment: No: D o not add to previous draw Performed By: #### 4 6413, 38890 #### [facility] [address] [place] [address], [place] GFR/1.73 sq M predicted among blacks MDRD (S/P/Bld) [Vol rate/Area] mL/min/{1.73_m2} Normal >60 [facility] Comment on above: Order Comment: No: D o not add to previous draw Performed By: #### 4 64, 21693 #### [facility] [address] [place] [address], [place] GFR/1.73 sq M predicted among non-blacks MDRD (S/P/Bld) [Vol rate/Area] mL/min/{1.73_m2} Normal >60 [facility] Comment on above: Order Comment: No: D o not add to previous draw Performed By: #### 4 5113, 66167 #### [facility] [address] [place] [address], [place] Glucose [Mass/Vol] 272 mg/dL High 70-[address] [facility] Comment on above: Order Comment: No: D o not add to previous draw Performed By: #### 4 6413, 53322 #### [facility] [address] [place] [address], [place] Potassium [Moles/Vol] 3.6 mmol/L Normal 3.5-5.1 [facility] Comment on above: Order Comment: No: D o not add to previous draw Performed By: #### 4 64, 11608 #### [facility] [address] [place] [address], [place] Sodium [Moles/Vol] 137 mmol/L Normal 136-[address] [facility] Comment on above: Order Comment: No: D o not add to previous draw Performed By: #### 4 6413, 52580 #### [facility] [address] [place] [address], [facility] Urea nitrogen [Mass/Vol] 17 mg/dL Normal 7-25 [facility] Comment on above: Order Comment: No: D o not add to previous draw Performed By: #### 4 64, 44196 #### [facility] [address] [place] [id number], [facility] CBC COMPLETE BLOOD COUNTon 0 11-21-2018 Erythrocyte distribution width (RBC) [Ratio] 13.0 % Normal 11.5-15.0 [facility] Comment on above: Order Comment: No: D o not add to previous draw Performed By: #### 4 6413, 03041 #### [facility] [address] [place] [address], [facility] Hematocrit (Bld) [Volume fraction] 40.2 % Normal 36.0-45.0 [facility] Comment on above: Order Comment: No: D o not add to previous draw Performed By: #### 4 6413, 72977 #### [facility] [address] [place] [address], [facility] Hemoglobin (Bld) [Mass/Vol] 13.1 g/dL Normal 12.0-15.0 [facility] Comment on above: Order Comment: No: D o not add to previous draw Performed By: #### 4 6413, 33341 #### [facility] [address] [place] [id number], [place] MCH (RBC) [Entitic mass] 30.7 pg Normal 27.0-33.0 [facility] Comment on above: Order Comment: No: D o not add to previous draw Performed By: #### 4 6413, 40774 #### [facility] [address] MCHC (RBC) [Mass/Vol] 32.6 g/dL Normal 32.0-35.0 [facility] Comment on above: Order Comment: No: D o not add to previous draw Performed By: #### 4 6413, 74449 #### [facility] [address] [place] [address], [facility] MCV (RBC) [Entitic vol] 94.1 fL Normal 82.0-98.0 [facility] Comment on above: Order Comment: No: D o not add to previous draw Performed By: #### 4 64, 58525 #### [facility] [address] [facility] [place] [address], [facility] Nucleated RBC/100 WBC (Bld) [Ratio] 0 % Normal 0-0 [facility] Comment on above: Order Comment: No: D o not add to previous draw Performed By: #### 4 64, 93611 #### [facility] [address] [place] [address], [facility] PLAT CNT 256 10*3/uL Normal 150-400 [facility] Comment on above: Order Comment: No: D o not add to previous draw Performed By: #### 4 6413, 99572 #### [facility] [address] [facility] [address], [facility] RBC (Bld) [#/Vol] 4.27 10*6/uL Normal 3.80-5.00 [facility] Comment on above: Order Comment: No: D o not add to previous draw Performed By: #### 4 6413, 37123 #### [facility] [address] [place] [address], [facility] WBC (Bld) [#/Vol] 16.78 10*3/uL High 4.00-10.60 [facility] Comment on above: Order Comment: No: D o not add to previous draw Performed By: #### 4 64, 02074 #### [facility] [address] [place] [address], [facility] BASIC METABOLIC PANELon 09-0 Calcium [Mass/Vol] 9.4 mg/dL Normal 8.6-10.3 [facility] Comment on above: Order Comment: No: D o not add to previous draw Performed By: #### 4 6413, 80059 #### [facility] [address] [place] [address], [place] Chloride [Moles/Vol] 105 mmol/L Normal 98-107 [facility] Comment on above: Order Comment: No: D o not add to previous draw Performed By: #### 4 6413, 22856 #### [facility] [address] [place] [address], [place] CO2 [Moles/Vol] 22 mmol/L Normal 21-31 [facility] Comment on above: Order Comment: No: D o not add to previous draw Performed By: #### 4 6413, 53371 #### [facility] [address] [place] [address], [place] Creatinine [Mass/Vol] 0.51 mg/dL Low 0.60-1.20 [facility] Comment on above: Order Comment: No: D o not add to previous draw Performed By: #### 4 6413, 41172 #### [facility] [address] [place] [address], [place] GFR/1.73 sq M predicted among blacks MDRD (S/P/Bld) [Vol rate/Area] mL/min/{1.73_m2} Normal >60 [facility] Comment on above: Order Comment: No: D o not add to previous draw Performed By: #### 4 6413, [id number] #### [facility] [address] [place] [address], [place] GFR/1.73 sq M predicted among non-blacks MDRD (S/P/Bld) [Vol rate/Area] mL/min/{1.73_m2} Normal >60 [facility] Comment on above: Order Comment: No: D o not add to previous draw Performed By: #### 4 6413, 96872 #### [facility] [address] [place] [address], [place] Glucose [Mass/Vol] 187 mg/dL High 70-[address] [facility] Comment on above: Order Comment: No: D o not add to previous draw Performed By: #### 4 64, 25804 #### [facility] [address] [place] [address], [place] Potassium [Moles/Vol] 3.6 mmol/L Normal 3.5-5.1 [facility] Comment on above: Order Comment: No: D o not add to previous draw Performed By: #### 4 64, 25242 #### [facility] [address] [place] [address], [place] Sodium [Moles/Vol] 136 mmol/L Normal 136-[address] [facility] Comment on above: Order Comment: No: D o not add to previous draw Performed By: #### 4 6413, 22542 #### [facility] [address] [place] [address], [place] Urea nitrogen [Mass/Vol] 12 mg/dL Normal 7-25 [facility] Comment on above: Order Comment: No: D o not add to previous draw Performed By: #### 4 6413, 63181 #### [facility] [address] [place] [address], [place] CBC COMPLETE BLOOD COUNTon 0 - Erythrocyte distribution width (RBC) [Ratio] 12.7 % Normal 11.5-15.0 [facility] Comment on above: Order Comment: No: D o not add to previous draw Performed By: #### 4 6413, 93087 #### [facility] [address] [place] [address], [place] Hematocrit (Bld) [Volume fraction] 40.8 % Normal 36.0-45.0 [facility] Comment on above: Order Comment: No: D o not add to previous draw Performed By: #### 4 92, 08340 #### [facility] [address] [place] [address], [facility] Hemoglobin (Bld) [Mass/Vol] 13.6 g/dL Normal 12.0-15.0 [facility] Comment on above: Order Comment: No: D o not add to previous draw Performed By: #### 4 61, 33753 #### [facility] [address] [place] [address], [facility] MCH (RBC) [Entitic mass] 30.0 pg Normal 27.0-33.0 [facility] Comment on above: Order Comment: No: D o not add to previous draw Performed By: #### 4 32, 79085 #### [facility] [address] MCHC (RBC) [Mass/Vol] 33.3 g/dL Normal 32.0-35.0 [facility] Comment on above: Order Comment: No: D o not add to previous draw Performed By: #### 4 99, 13684 #### [facility] [address] [place] [address], [facility] MCV (RBC) [Entitic vol] 90.1 fL Normal 82.0-98.0 [facility] Comment on above: Order Comment: No: D o not add to previous draw Performed By: #### 4 69, 88754 #### [facility] [address] [place] [address], [facility] Nucleated RBC/100 WBC (Bld) [Ratio] 0 % Normal 0-0 [facility] Comment on above: Order Comment: No: D o not add to previous draw Performed By: #### 4 33, 14086 #### [facility] [address] [place] [address], [place] PLAT CNT 277 10*3/uL Normal 150-400 [facility] Comment on above: Order Comment: No: D o not add to previous draw Performed By: #### 4 6413, 97329 #### [facility] [address] [place] [address], [place] RBC (Bld) [#/Vol] 4.53 10*6/uL Normal 3.80-5.00 [facility] Comment on above: Order Comment: No: D o not add to previous draw Performed By: #### 4 64, 28892 #### [facility] [address] [place] [address], [place] WBC (Bld) [#/Vol] 18.13 10*3/uL High 4.00-10.60 [facility] Comment on above: Order Comment: No: D o not add to previous draw Performed By: #### 4 6413, 22839 #### [facility] [address] [place] [address], [place] POC GLUCOSE LABon 11-20-2018 Glucose [Mass/Vol] 357 mg/dL High 70-[address] [facility] Comment on above: Performed By: #### 4 6413, 59299 #### [facility] [address] [place] [address], [place] Glucose [Mass/Vol] 272 mg/dL High 70-[address] [facility] Comment on above: Performed By: #### 4 6413, 10692 #### [facility] [address] [place] [address], [place] Glucose [Mass/Vol] 201 mg/dL High 70-[address] [facility] Comment on above: Performed By: #### 4 6413, 34221 #### [facility] [address] [place] [address], [place] Glucose [Mass/Vol] 183 mg/dL High 70-[address] [facility] Comment on above: Performed By: #### 4 6413, 61233 #### [facility] [address] [place] [address], [facility] BASIC METABOLIC PANELon 09-0 Calcium [Mass/Vol] 8.7 mg/dL Normal 8.6-10.[address] [facility] Comment on above: Order Comment: No: D o not add to previous draw Performed By: #### 5 0608 #### [facility] [address] [place] [address], [place] Chloride [Moles/Vol] 106 mmol/L Normal 98-107 [facility] Comment on above: Order Comment: No: D o not add to previous draw Performed By: #### 5 0608 #### [facility] [address] [place] [address], [place] CO2 [Moles/Vol] 25 mmol/L Normal 21-31 [facility] Comment on above: Order Comment: No: D o not add to previous draw Performed By: #### 5 0608 #### [facility] [address] [place] [address], [place] Creatinine [Mass/Vol] 0.62 mg/dL Normal 0.60-1.20 [facility] Comment on above: Order Comment: No: D o not add to previous draw Performed By: #### 5 0608 #### [facility] [address] [place] [address], [place] GFR/1.73 sq M predicted among blacks MDRD (S/P/Bld) [Vol rate/Area] mL/min/{1.73_m2} Normal >60 [facility] Comment on above: Order Comment: No: D o not add to previous draw Performed By: #### 5 0608 #### [facility] [address] [place] [address], [place] GFR/1.73 sq M predicted among non-blacks MDRD (S/P/Bld) [Vol rate/Area] mL/min/{1.73_m2} Normal >60 [facility] Comment on above: Order Comment: No: D o not add to previous draw Performed By: #### 5 0608 #### [facility] [address] [place] [address], [place] Glucose [Mass/Vol] 126 mg/dL High 70-[address] [facility] Comment on above: Order Comment: No: D o not add to previous draw Performed By: #### 5 0608 #### [facility] [address] [place] [address], [place] Potassium [Moles/Vol] 3.7 mmol/L Normal 3.5-5.1 [facility] Comment on above: Order Comment: No: D o not add to previous draw Performed By: #### 5 0608 #### [facility] [address] [place] [address], [place] Sodium [Moles/Vol] 137 mmol/L Normal 136-[address] [facility] Comment on above: Order Comment: No: D o not add to previous draw Performed By: #### 5 0608 #### [facility] [address] [place] [address], [place] Urea nitrogen [Mass/Vol] 14 mg/dL Normal 7-25 [facility] Comment on above: Order Comment: No: D o not add to previous draw Performed By: #### 5 0608 #### [facility] [address] [place] [address], [place] CBC COMPLETE BLOOD COUNTon 0 - Erythrocyte distribution width (RBC) [Ratio] 12.7 % Normal 11.5-15.0 [facility] Comment on above: Order Comment: No: D o not add to previous draw Performed By: #### 5 0608 #### [facility] [address] [place] [address], [place] Hematocrit (Bld) [Volume fraction] 40.8 % Normal 36.0-45.0 [facility] Comment on above: Order Comment: No: D o not add to previous draw Performed By: #### 5 0608 #### [facility] [address] [place] [address], [facility] Hemoglobin (Bld) [Mass/Vol] 13.3 g/dL Normal 12.0-15.0 [facility] Comment on above: Order Comment: No: D o not add to previous draw Performed By: #### 5 0608 #### [facility] [address] [place] [id number], [facility] MCH (RBC) [Entitic mass] 30.6 pg Normal 27.0-33.0 [facility] Comment on above: Order Comment: No: D o not add to previous draw Performed By: #### 5 0608 #### [facility] [address] [place] [address], [facility] MCHC (RBC) [Mass/Vol] 32.6 g/dL Normal 32.0-35.0 [facility] Comment on above: Order Comment: No: D o not add to previous draw Performed By: #### 5 0608 #### [facility] [address] [place] [address], [facility] MCV (RBC) [Entitic vol] 93.8 fL Normal 82.0-98.0 [facility] Comment on above: Order Comment: No: D o not add to previous draw Performed By: #### 5 0608 #### [facility] [address] [place] [address], [facility] Nucleated RBC/100 WBC (Bld) [Ratio] 0 % Normal 0-0 [facility] Comment on above: Order Comment: No: D o not add to previous draw Performed By: #### 5 0608 #### [facility] [address] [place] [id number], [facility] PLAT CNT 218 10*3/uL Normal 150-400 [facility] Comment on above: Order Comment: No: D o not add to previous draw Performed By: #### 5 0608 #### [facility] [address] [place] [address], [place] RBC (Bld) [#/Vol] 4.35 10*6/uL Normal 3.80-5.00 [facility] Comment on above: Order Comment: No: D o not add to previous draw Performed By: #### 5 0608 #### [facility] [address] [place] [address], [place] WBC (Bld) [#/Vol] 6.28 10*3/uL Normal 4.00-10.60 [facility] Comment on above: Order Comment: No: D o not add to previous draw Performed By: #### 5 0608 #### [facility] [address] [place] [address], [facility] POC GLUCOSE LABon 11-19-2018 Glucose [Mass/Vol] 236 mg/dL High 70-[address] [facility] Comment on above: Performed By: #### 5 0608 #### [facility] [address] [place] [address], [place] Glucose [Mass/Vol] 217 mg/dL High 70-[address] [facility] Comment on above: Performed By: #### 5 0608 #### [facility] [address] [place] [address], [place] Glucose [Mass/Vol] 180 mg/dL High 70-[address] [facility] Comment on above: Performed By: #### 5 0608 #### [facility] [address] [place] [address], [place] Glucose [Mass/Vol] 110 mg/dL High 70-[address] [facility] Comment on above: Performed By: #### 5 0608 #### [facility] [address] [address], [facility] CBC W/DIFFon 11-18-2018 ABS BASOPHILS 0.0 10*3/uL Normal 0.0-0.2 [facility] Comment on above: Order Comment: Unkno wn Performed By: #### 5 0103 #### [facility] [address] [place] [address], [facility] ABS IMM GRANS 0.0 10*3/uL Normal 0.0-0.2 [facility] Comment on above: Order Comment: Unkno wn Performed By: #### 5 0103 #### [facility] [address] [facility] [place] [address], [facility] ABS NEUTROPHILS 3.3 10*3/uL Normal 1.6-7.6 [facility] Comment on above: Order Comment: Unkno wn Performed By: #### 5 0103 #### [facility] [address] [facility] [place] [address], [facility] Basophils/100 WBC (Bld) 0.4 % Normal 0.0-1.0 [facility] Comment on above: Order Comment: Unkno wn Performed By: #### 5 0103 #### [facility] [address] [place] [address], [facility] Eosinophils (Bld) [#/Vol] 0.1 10*3/uL Normal 0.0-0.5 [facility] Comment on above: Order Comment: Unkno wn Performed By: #### 5 0103 #### [facility] [address] [facility] [place] [address], [facility] Eosinophils/100 WBC (Bld) 2.3 % Normal 0.0-6.0 [facility] Comment on above: Order Comment: Unkno wn Performed By: #### 5 0103 #### [facility] [address] [facility] [place] [address], [facility] Erythrocyte distribution width (RBC) [Ratio] 12.8 % Normal 11.5-15.0 [facility] Comment on above: Order Comment: Unkno wn Performed By: #### 5 0103 #### [facility] [address] [place] [address], [facility] Hematocrit (Bld) [Volume fraction] 38.6 % Normal 36.0-45.0 [facility] Comment on above: Order Comment: Unkno wn Performed By: #### 5 0103 #### [facility] [address] [place] [address], [facility] Hemoglobin (Bld) [Mass/Vol] 12.8 g/dL Normal 12.0-15.0 [facility] Comment on above: Order Comment: Unkno wn Performed By: #### 5 102 #### [facility] [address] [place] [address], [facility] IMMATURE GRANS 0.5 % Normal 0.0-1.0 [facility] Comment on above: Order Comment: Unkno wn Performed By: #### 5 102 #### [facility] [address] [address], [facility] Lymphocytes (Bld) [#/Vol] 1.6 10*3/uL Normal 1.2-4.0 [facility] Comment on above: Order Comment: Unkno wn Performed By: #### 5 3 #### [facility] [address] [address], [facility] Lymphocytes/100 WBC (Bld) 28.1 % Normal 20.0-45.0 [facility] Comment on above: Order Comment: Unkno wn Performed By: #### 5 3 #### [facility] [address] [place] [address], [facility] MCH (RBC) [Entitic mass] 30.2 pg Normal 27.0-33.0 [facility] Comment on above: Order Comment: Unkno wn Performed By: #### 5 3 #### [facility] [address] [place] [address], [facility] MCHC (RBC) [Mass/Vol] 33.2 g/dL Normal 32.0-35.0 [facility] Comment on above: Order Comment: Unkno wn Performed By: #### 5 0103 #### [facility] [address] [place] [address], [facility] MCV (RBC) [Entitic vol] 91.0 fL Normal 82.0-98.0 [facility] Comment on above: Order Comment: Unkno wn Performed By: #### 5 0103 #### [facility] [address] [place] [address], [facility] Monocytes (Bld) [#/Vol] 0.5 10*3/uL Normal 0.1-1.0 [facility] Comment on above: Order Comment: Unkno wn Performed By: #### 5 0103 #### [facility] [address] [place] [address], [facility] MONOS 9.0 % Normal 5.0-12.0 [facility] Comment on above: Order Comment: Unkno wn Performed By: #### 5 0103 #### [facility] [address] [place] [address], [facility] Neutrophils/100 WBC (Bld) 59.7 % Normal 40.0-72.0 [facility] Comment on above: Order Comment: Unkno wn Performed By: #### 5 0103 #### [facility] [address] [place] [address], [facility] Nucleated RBC/100 WBC (Bld) [Ratio] 0 % Normal 0-0 [facility] Comment on above: Order Comment: Unkno wn Performed By: #### 5 3 #### [facility] [address] [place] [address], [place] PLAT CNT 211 10*3/uL Normal 150-400 [facility] Comment on above: Order Comment: Unkno wn Performed By: #### 5 0103 #### [facility] [address] [place] [address], [facility] RBC (Bld) [#/Vol] 4.24 10*6/uL Normal 3.80-5.00 [facility] Comment on above: Order Comment: Unkno wn Performed By: #### 5 0103 #### [facility] [address] [place] [address], [facility] WBC (Bld) [#/Vol] 5.55 10*3/uL Normal 4.00-10.60 [facility] Comment on above: Order Comment: Unkno wn Performed By: #### 5 0103 #### [facility] [address] COMP METABOLIC PANELon 11-18 Albumin [Mass/Vol] 3.7 g/dL Normal 3.5-5.7 [facility] Comment on above: Order Comment: Unkno wn Performed By: #### 0 0121 #### [facility] [address] [facility] ALKALINE PHOSPH 64 IU/L Normal 34-104 [facility] Comment on above: Order Comment: Unkno wn Performed By: #### 0 0121 #### [facility] [address] ALT [Catalytic activity/Vol] 22 U/L Normal 7-52 [facility] Comment on above: Order Comment: Unkno wn Performed By: #### 0 0121 #### [facility] [address] AST [Catalytic activity/Vol] 20 U/L Normal 13-39 [facility] Comment on above: Order Comment: Unkno wn Performed By: #### 0 0121 #### [facility] [address] [place] [address], [facility] Bilirubin [Mass/Vol] 0.3 mg/dL Normal 0.3-1.0 [facility] Comment on above: Order Comment: Unkno wn Performed By: #### 0 0121 #### [facility] [address] [place] [address], [place] Calcium [Mass/Vol] 8.3 mg/dL Low 8.6-10.3 [facility] Comment on above: Order Comment: Unkno wn Performed By: #### 0 0121 #### [facility] [address] [place] [address], [place] Chloride [Moles/Vol] 107 mmol/L Normal 98-107 [facility] Comment on above: Order Comment: Unkno wn Performed By: #### 0 0121 #### [facility] [address] [place] [address], [place] CO2 [Moles/Vol] 22 mmol/L Normal 21-31 [facility] Comment on above: Order Comment: Unkno wn Performed By: #### 0 0121 #### [facility] [address] [place] [address], [place] Creatinine [Mass/Vol] 0.60 mg/dL Normal 0.60-1.20 [facility] Comment on above: Order Comment: Unkno wn Performed By: #### 0 0121 #### [facility] [address] [place] [address], [place] GFR/1.73 sq M predicted among blacks MDRD (S/P/Bld) [Vol rate/Area] mL/min/{1.73_m2} Normal >60 [facility] Comment on above: Order Comment: Unkno wn Performed By: #### 0 0121 #### [facility] [address] [place] [address], [place] GFR/1.73 sq M predicted among non-blacks MDRD (S/P/Bld) [Vol rate/Area] mL/min/{1.73_m2} Normal >60 [facility] Comment on above: Order Comment: Unkno wn Performed By: #### 0 0121 #### [facility] [address] [place] [address], [facility] Glucose [Mass/Vol] 126 mg/dL High 70-[address] [facility] Comment on above: Order Comment: Unkno wn Performed By: #### 0 0121 #### [facility] [address] [place] [address], [facility] Potassium [Moles/Vol] 3.7 mmol/L Normal 3.5-5.1 [facility] Comment on above: Order Comment: Unkno wn Performed By: #### 0 0121 #### [facility] [address] [place] [address], [facility] Protein [Mass/Vol] 6.6 g/dL Normal 6.0-8.[address] [facility] Comment on above: Order Comment: Unkno wn Performed By: #### 0 0121 #### [facility] [address] [place] [address], [facility] Sodium [Moles/Vol] 135 mmol/L Low 136-[address] [facility] Comment on above: Order Comment: Unkno wn Performed By: #### 0 0121 #### [facility] [address] [place] [address], [facility] Urea nitrogen [Mass/Vol] 10 mg/dL Normal 7-25 [facility] Comment on above: Order Comment: Unkno wn Performed By: #### 0 0121 #### [facility] [address] [place] [address], [place] HEMOGLOBIN A1Con 11-18-2018 HbA1c (Bld) [Mass fraction] 103 mg/dL Normal 70-126 [facility] Comment on above: Order Comment: No: D o not add to previous draw Performed By: #### 4 5368, 09785 #### [facility] [address] [place], [place] [id number] [place] [address] HbA1c (Bld) [Mass fraction] 5.2 % Normal 4.0-6.0 [facility] Comment on above: Order Comment: No: D o not add to previous draw Performed By: #### 4 6413, 81894 #### [facility] [address] [place], [place] [id number] [place] [address] MRI FACE ORBIT NECK W WO CON TRASTon 11-18-2018 MRI FACE ORBIT NECK W WO CONTRAST [facility] Department of Radiology [address] [place] [id number] Patient Name: EVELINE PLATT : 1980 Sex: F Age: Race: White Pt. Location: [id number] Patient Status: I Ordered Date: 11/18/2018 1:50:00 [...] COMMENTS: ? optic neuritis/MS brain w/wo done 8/31 QUESTIONS PER RADIOLOGIST: Other, Optic neuritis. Only [...] findings. Electronically signed by:Lisbeth Guzman. Transcribed by: [email or web address], User Resident: MELISSA BLANKENSHIP Electronically Signed by: LISBETH GUZMAN @ 11/19/2018 08:37 AM I personally read this/these film(s) with this resident Normal [facility] Comment on above: Order Comment: No: D o not add to previous draw POC GLUCOSE LABon 11-18-2018 Glucose [Mass/Vol] 150 mg/dL High 70-[address] [facility] Comment on above: Performed By: #### 5 0608 #### [facility] [address] [place] [address], [place] Glucose [Mass/Vol] 103 mg/dL High 70-[address] [facility] Comment on above: Performed By: #### 8 5499 #### [facility] [facility] [address] [place] [address], [place] BASIC METABOLIC PANELon 08-3 Calcium [Mass/Vol] 8.8 mg/dL Normal 8.6-10.3 [facility] Comment on above: Order Comment: No: D o not add to previous draw Performed By: #### 4 6413, 16419 #### [facility] [address] [place] [address], [place] Chloride [Moles/Vol] 105 mmol/L Normal 98-107 [facility] Comment on above: Order Comment: No: D o not add to previous draw Performed By: #### 4 64, 79626 #### [facility] [address] [place] [address], [place] CO2 [Moles/Vol] 26 mmol/L Normal 21-31 [facility] Comment on above: Order Comment: No: D o not add to previous draw Performed By: #### 4 64, 15313 #### [facility] [address] [place] [address], [place] Creatinine [Mass/Vol] 0.71 mg/dL Normal 0.60-1.20 [facility] Comment on above: Order Comment: No: D o not add to previous draw Performed By: #### 4 6413, 16824 #### [facility] [address] [place] [address], [place] GFR/1.73 sq M predicted among blacks MDRD (S/P/Bld) [Vol rate/Area] mL/min/{1.73_m2} Normal >60 [facility] Comment on above: Order Comment: No: D o not add to previous draw Performed By: #### 4 6413, 11069 #### [facility] [address] [place] [address], [place] GFR/1.73 sq M predicted among non-blacks MDRD (S/P/Bld) [Vol rate/Area] mL/min/{1.73_m2} Normal >60 [facility] Comment on above: Order Comment: No: D o not add to previous draw Performed By: #### 4 64, 00497 #### [facility] [address] [place] [address], [place] Glucose [Mass/Vol] 90 mg/dL Normal 70-[address] [facility] Comment on above: Order Comment: No: D o not add to previous draw Performed By: #### 4 64, 82256 #### [facility] [address] [place] [address], [place] Potassium [Moles/Vol] 3.6 mmol/L Normal 3.5-5.1 [facility] Comment on above: Order Comment: No: D o not add to previous draw Performed By: #### 4 64, 01854 #### [facility] [address] [place] [address], [place] Sodium [Moles/Vol] 138 mmol/L Normal 136-[address] [facility] Comment on above: Order Comment: No: D o not add to previous draw Performed By: #### 4 6413, 61548 #### [facility] [address] [place] [address], [place] Urea nitrogen [Mass/Vol] 10 mg/dL Normal 7-25 [facility] Comment on above: Order Comment: No: D o not add to previous draw Performed By: #### 4 6413, 33066 #### [facility] [address] [place] [id number], [facility] CBC COMPLETE BLOOD COUNTon - Erythrocyte distribution width (RBC) [Ratio] 12.8 % Normal 11.5-15.0 [facility] Comment on above: Order Comment: No: D o not add to previous draw Performed By: #### 5 0608 #### [facility] [address] [place] [address], [place] Hematocrit (Bld) [Volume fraction] 40.1 % Normal 36.0-45.0 [facility] Comment on above: Order Comment: No: D o not add to previous draw Performed By: #### 5 0608 #### [facility] [address] [place] [address], [facility] Hemoglobin (Bld) [Mass/Vol] 13.1 g/dL Normal 12.0-15.0 [facility] Comment on above: Order Comment: No: D o not add to previous draw Performed By: #### 5 0608 #### [facility] [address] [place] [address], [facility] MCH (RBC) [Entitic mass] 30.5 pg Normal 27.0-33.0 [facility] Comment on above: Order Comment: No: D o not add to previous draw Performed By: #### 5 0608 #### [facility] [address] [facility] [place] [address], [facility] MCHC (RBC) [Mass/Vol] 32.7 g/dL Normal 32.0-35.0 [facility] Comment on above: Order Comment: No: D o not add to previous draw Performed By: #### 5 0608 #### [facility] [address] [facility] [place] [address], [facility] MCV (RBC) [Entitic vol] 93.3 fL Normal 82.0-98.0 [facility] Comment on above: Order Comment: No: D o not add to previous draw Performed By: #### 5 0608 #### [facility] [address] Nucleated RBC/100 WBC (Bld) [Ratio] 0 % Normal 0-0 [facility] Comment on above: Order Comment: No: D o not add to previous draw Performed By: #### 5 0608 #### [facility] [address] [facility] [place] [address], [facility] PLAT CNT 225 10*3/uL Normal 150-400 [facility] Comment on above: Order Comment: No: D o not add to previous draw Performed By: #### 5 0608 #### [address] [address], [facility] RBC (Bld) [#/Vol] 4.30 10*6/uL Normal 3.80-5.00 [facility] Comment on above: Order Comment: No: D o not add to previous draw Performed By: #### 5 0608 #### [address] [address], [facility] WBC (Bld) [#/Vol] 5.88 10*3/uL Normal 4.00-10.60 [facility] Comment on above: Order Comment: No: D o not add to previous draw Performed By: #### 5 0608 #### [address] [address], [facility] CTA HEADon 11-17-2018 CTA HEAD [facility] Department of Radiology [address] [place] [id number] Patient Name: EVELINE PLATT : 1980 Sex: F Age: Race: White Pt. Location: [id number] Patient Status: I Ordered Date: 11/17/2018 11:30:00 [...] findings. Electronically signed by:Brendan Mario. Transcribed by: [email or web address], User Resident: WHITNEY GLEASON Electronically Signed by: BRENDAN MARIO @ 11/18/2018 07:23 PM I personally read this/these film(s) with this resident Normal [facility] Comment on above: Order Comment: No: D o not add to previous draw CTA NECKon 11-17-2018 CTA NECK [facility] Department of Radiology [address] [place] [id number] Patient Name: EVELINE PLATT : 1980 Sex: F Age: Race: White Pt. Location: [id number] Patient Status: I Ordered Date: 11/17/2018 11:30:00 [...] findings. Electronically signed by:Brendan Mario. Transcribed by: [email or web address], User Resident: WHITNEY GLEASON Electronically Signed by: BRENDAN MARIO @ 11/18/2018 07:23 PM I personally read this/these film(s) with this resident Normal [facility] History and Physicalon 11-17 History and Physical MR#: [id number] [facility] Pt. Name: Eveline Platt Admitted: 11/17/2018 Date of : 1980 Attending Physician: Jennifer Kincaid MD Room #: [id number] Discharge Date: HISTORY AND PHYSICAL CHIEF COMPLAINT: [...] [place]/Jennifer Kincaid MD Date Trans: 11/17/2018 05:13 [place]/jp [id number] Normal [facility] LIPID PROFILEon 11-17-2018 Cholesterol [Mass/Vol] 133 mg/dL Normal 120-200 [facility] Comment on above: Order Comment: No: D o not add to previous draw Result Comment: CHOL ESTEROL REFERENCE RANGE: 20 YEARS AND OLDER CARDIOVASCULAR RISK Less than 200 mg/dl Low Risk 200 to 239 mg/dl Borderline Risk 240 mg/dl and greater High Risk Performed By: #### 4 6413, 44997 #### [facility] [address] [place] [address], [place] Cholesterol in HDL [Mass/Vol] 39 mg/dL Normal 23-92 [facility] Comment on above: Order Comment: No: D o not add to previous draw Result Comment: Slig ht variation in normal range could be due to gender and/or age. HDL CHOLESTEROL REFERENCE RANGE: 20 years and older Cardiovascular Risk > or =60 mg/dL Desirable 40 TO 59 mg/dL Low Risk <40 mg/dL High Risk Performed By: #### 4 6413, 75660 #### [facility] [address] [place] [address], [facility] Cholesterol in LDL [Mass/Vol] 52 mg/dL Normal 0-130 [facility] Comment on above: Order Comment: No: D o not add to previous draw Result Comment: LDL IS A CALCULATION LDL IS ONLY VALID IF THE TRIG IS LESS THAN 400. Performed By: #### 4 6413, 20473 #### [facility] [address] [place] [address], [facility] Cholesterol.total/Ch olesterol in HDL [Mass ratio] 3.4 {ratio} Normal 0.0-4.5 [facility] Comment on above: Order Comment: No: D o not add to previous draw Performed By: #### 4 6413, 26869 #### [facility] [address] [place] [address], [place] NON-HDL CHOLESTEROL 94 mg/dL Normal [facility] Comment on above: Order Comment: No: D o not add to previous draw Performed By: #### 4 6413, 86346 #### [facility] [address] [place] [address], [place] Triglyceride [Mass/Vol] 208 mg/dL High 40-149 [facility] Comment on above: Order Comment: No: D o not add to previous draw Result Comment: TRIG LYCERIDE REFERENCE RANGE: 20 YEARS AND OLDER CARDIOVASCULAR RISK LESS THAN 150 mg/dl LOW RISK 150 TO 199 mg/dl BORDERLINE RISK 200 mg/dl AND GREATER HIGH RISK Performed By: #### 4 6413, 88560 #### [facility] [address] [facility] [place], [place] [id number] [place] [address] VLDL CHOL 42 mg/dL High 0-40 [facility] Comment on above: Order Comment: No: D o not add to previous draw Performed By: #### 4 6413, 01844 #### [facility] [address] [facility] [place], [place] [id number] [place] [address] MRI BRAIN W WO CONTRASTon MRI BRAIN W WO CONTRAST [facility] Department of Radiology [address] [place] [id number] Patient Name: EVELINE PLATT : 1980 Sex: F Age: Race: White Pt. Location: [id number] Patient Status: I Ordered Date: 11/17/2018 2:50:00 [...] findings. Electronically signed by:Brendan Mario. Transcribed by: [email or web address], User Resident: WHITNEY GLEASON Electronically Signed by: BRENDAN MARIO @ 11/18/2018 07:22 PM I personally read this/these film(s) with this resident Normal [facility] Comment on above: Order Comment: R/O C VA SEDIMENTATION RATEon 019 SED RATE 13 mm/hr Normal 0-20 [facility] Comment on above: Order Comment: No: D o not add to previous draw Performed By: #### 5 6506 #### [facility] [address] [place] [address], [facility] TOX PANEL URINEon 11-17-2018 50 THC Negative Normal NEGATIVE [facility] Comment on above: Order Comment: No: D o not add to previous draw Performed By: #### 3 1079 #### [facility] [address] [place] [address], [facility] BARBITURATES Negative Normal NEGATIVE [facility] Comment on above: Order Comment: No: D o not add to previous draw Performed By: #### 3 1079 #### [facility] [address] [place] [address], [place] Benzodiazepines Ql (U) Negative Normal NEGATIVE [facility] Comment on above: Order Comment: No: D o not add to previous draw Performed By: #### 3 1079 #### [facility] [address] [place] [address], [place] Cocaine Ql (U) Negative Normal NEGATIVE [facility] Comment on above: Order Comment: No: D o not add to previous draw Performed By: #### 3 1079 #### [facility] [address] [place] [address], [facility] Methadone Ql (U) Negative Normal NEGATIVE The [facility] Comment on above: Order Comment: No: D o not add to previous draw Performed By: #### 3 1079 #### [facility] [address] [place] [address], [facility] MONO AMPHET Negative Normal NEGATIVE The [facility] Comment on above: Order Comment: No: D o not add to previous draw Performed By: #### 3 1079 #### [facility] [address] [place] [address], [facility] Opiates Ql (U) Negative Normal NEGATIVE [facility] Comment on above: Order Comment: No: D o not add to previous draw Performed By: #### 3 1079 #### [facility] [address] [place] [address], [facility] Phencyclidine Ql (U) Negative Normal NEGATIVE [facility] Comment on above: Order Comment: No: D o not add to previous draw Performed By: #### 3 1079 #### [facility] [address] [place] [address], [place] PROPOXYPHENE Negative Normal NEGATIVE The [facility] Comment on above: Order Comment: No: D o not add to previous draw Performed By: #### 3 1079 #### [facility] [address] [place] [address], [facility] TRICYCLICS Negative Normal NEGATIVE [facility] Comment on above: Order Comment: No: D o not add to previous draw Performed By: #### 3 1079 #### [facility] [address] [place] [address], [facility] Vital Signs Date Time Vital Sign Value Performing Clinician Faci lity 04-29-2024 15:27-0500 Body height 154.94 cm [facility] 04-29-2024 15:27-0500 Body mass index (BMI) [Ratio] 40.4 kg/m2 [facility] 04-29-2024 15:27-0500 Body weight 97.06 kg [facility] 04-29-2024 15:27-0500 Diastolic blood pressure 96 mm[Hg] [facility] 04-29-2024 15:27-0500 Heart rate 72 /min [facility] 04-29-2024 15:27-0500 Systolic blood pressure 148 mm[Hg] [facility] 12-11-2023 15:49-0400 Body height 154.94 cm [facility] 12-11-2023 15:49-0400 Body mass index (BMI) [Ratio] 39.1 kg/m2 [facility] 12-11-2023 15:49-0400 Body weight 93.89 kg [facility] 12-11-2023 15:49-0400 Diastolic blood pressure 89 mm[Hg] [facility] 12-11-2023 15:49-0400 Heart rate 67 /min [facility] 12-11-2023 15:49-0400 Systolic blood pressure 146 mm[Hg] [facility] Encounters Encounter Date Encounter Type Care Provider Facility Start: 04-29-2024 End: 04-29-2024 ambulatory [facility] Work Phone: Start: 04-29-2024 End: 04-29-2024 Patient encounter procedure [facility] Physician [facility] Work Phone: Start: 02-12-2024 Non-patient / Non-visit [facility] Work Phone: Start: 12-11-2023 Patient encounter status [facility] Start: 12-11-2023 End: 12-11-2023 ambulatory [facility] Work Phone: Start: 12-11-2023 End: 12-11-2023 Encounter for general adult medical examination without abnormal findings [facility] Start: 12-11-2023 End: 12-11-2023 Patient encounter procedure [facility] Physician [facility] Work Phone: Start: 02-07-2023 End: 02-07-2023 ambulatory Kimberly Botello Other [facility] Other Start: 02-07-2023 Telephone encounter Kimberly Botello [facility] Start: 01-23-2023 (Televisit) Televisit Kimberly Botello [facility] Start: 01-23-2023 End: 01-23-2023 ambulatory Kimberly Botello Other [facility] Other Start: 05-10-2022 End: 05-10-[address] MELLISSA BAILEY . Facility:[facility] Start: 05-21-2021 End: 05-22-[address] KIMBERLY BOTELLO Facility:[facility] Start: 03-25-2021 Adult health examination Kimberly Botello Other [facility] Other Start: 03-25-2021 Problem, abnormal examination Kimberly Botello Other [facility] Other Start: 05-07-2020 End: 05-07-2020 Patient encounter procedure External Provider [facility] Start: 05-07-2020 Results Only External Provider [facility] Start: 11-17-2018 End: 11-21-2018 Evaluation and management of inpatient CRISTINA PAT Facility:[facility] Procedures Date Procedure Procedure Detail Performing Clinician Start: 05-07-2020 End: 05-07-2020 EXTERNAL LAB External Provider Screening for malign ant neoplasm of breast Kimberly Botello Other Plan of Treatment Date Care Activity Detail Author Start: 04-29-2024 Patient referral [facility] Work Phone: Patient Education Back Flexion Strengthening Exercises [facility] Work Phone: Patient referral [facility] Work Phone: XR Lumbar spine 2 or 3 Views [facility] Immunizations Immunization Date Immunization Notes Care Provider Fa cility 01-10-2018 influenza virus vaccine, split virus (incl. purified surface antigen) Kimberly Botello Other [facility] Other 01-10-2018 influenza virus vaccine, unspecified formulation [facility] Payers Date Payer Category Payer Unknown MMO MMO [employer] [id number] 2020-Present PPO [id number] 1980 Unknown [id number] 1980 Unknown [id number] 1980 Unknown [id number] 1961 Unknown [id number] Private Health Insurance [employer] [id number] Private Health Insurance [facility] [id number] Self-pay Self Pay [id number] Social History Date Type Detail Facility Tobacco smoking status NHIS Unknown if ever smoked [facility] Start: 1980 Sex Assigned At Not on file [facility] Sex Assigned At Sex Assigned At [facility] [employer] Other Start: 05-30-2023 End: 05-30-2023 Tobacco smoking status NHIS Never smoked tobacco (finding) [facility] Start: 1980 Sex Assigned At Female [facility] Start: 04-29-2024 Sex Female (finding) [facility] NEGATED: Highlighted row [facility] Clinical Notes 05-13-2020 to 01-23-2023 Note Date & Type Note Facility [...] of diseases classified elsewhere (ICD-10 - B96.89) [facility] [employer] Other 05-03-2021 NoteHNO ID: [id number] Author: Cat Fofana RD Service: ? Author Type: Registered Dietitian Type: Progress Notes Filed: 07/20/2020 12:50 PM Note Text: 12:01- Called pt at this time for scheduled phone appointment. No answer, left message for patient with provider contact information. Cat Fofana RDN, [facility]05-03-2021 NoteEducation (NUTRSA) EVELINE PLATT ([id number]) 1980 F Date Time Provider Department 07/20/20 12:00 PM CAT FOFANA Reason for Visit: Nutrition Telephone [2013] Progress Notes: Cat Fofana RD 07/20/2020 12:50 [...] * Encounter Status:Closed by CAT FOFANA on 07/20/20[facility]04-12-2021 NoteEducation (NUTRSA) EVELINE PLATT ([id number]) 1980 F Date Time Provider Department 06/29/20 12:[address] Reason for Visit: Nutrition Telephone [2014] Progress [...] 4 course- meat/pot/corn/non-starchy vegetable Snack(s): evening snacker- 8-370p something sweet Fluids: 3-24 oz water during the day. At home 48oz water. Nutrition Diagnosis: Problem, Etiology and Signs/Symptoms: Overweight/Obesity related to excessive energy intake as evidenced by BMI 39.2. Nutrition Intervention: -aim for 3 meals + snack if needed -use [employer] plate for dinner -ok to use meal replacement for lunch -ok to have snack of 1 CHO + Pro for breakfast -continue drinking at least 64 oz non-caffeine containing beverages -begin label reading -ok to use gama such as [employer] or [employer] to take caloric intake if desired -call [...] Estimated kilocalorie needs: 1854 kilocalories determined by Anderson-St. Jeor x 1.2 Estimated protein needs: 75-94 [...] nutrition counseling for obesity. 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 Author Type: [...] 4 course- meat/pot/corn/non-starchy vegetable Snack(s): evening snacker- 9-930p something sweet Fluids: 3-24 oz water during the day. At home 48oz water. Nutrition Diagnosis: Problem, Etiology and Signs/Symptoms: Overweight/Obesity related to excessive energy intake as evidenced by BMI 39.2. Nutrition Intervention: -aim for 3 meals + snack if needed -use heart healthy plate for dinner -ok to use meal replacement for lunch -ok to have snack of 1 CHO + Pro for breakfast -continue drinking at least 64 oz non-caffeine containing beverages -begin label reading -ok to use gama such as [employer] or [employer] to take caloric intake if desired -call [...] Estimated kilocalorie needs: 1854 kilocalories determined by Anderson-St. Jeor x 1.2 Estimated protein needs: 75-94 [...] nutrition counseling for obesity. 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 [facility]04-07-2021 NoteHNO ID: [id number] Author: Blake Patel Service: ? Author Type: Physician Type: Progress Notes Filed: 06/25/2020 6:20 AM Note Text: NAME: Eveline Platt CLINIC NO.: [id number] DATE OF SERVICE: June 24, 2020 Some [...] also endorses heavy menses. 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 Per HPI and [...] 25 Protein, Total (g/ (more content not included)...[facility] 05-13-2020 NoteHNO ID: [id number] Author: Blake Patel Service: ? Author Type: Physician Type: Progress Notes Filed: 05/13/2020 12:21 PM Note Text: NAME: Eveline Platt [facility] NO.: [id number] DATE OF SERVICE: May 13, 2020 Referring Provider: Kimberly Botello Consultation requested by Dr. Botello for an opinion regarding . Eveline Platt, and my final recommendations will [...] also endorses heavy menses. 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 Per HPI and [...] diagnosis) Plan: CBC + DIFF (FOR REMOTE [facility] USE), COMP METABOLIC PANEL, FERRITIN BLD, IRON [...] Mother Brain tumor Blake Patel MD, CPE [facility] [place], [place] CC: Kimberly Botello MD ([facility]) [address] [facility] [address]CxpixlnulGalion HospitalEvaluation noteNo Information [employer] [facility] [employer] Other Evaluation note* Diagnosis Onset Date Resolution Status DDD (degenerative disc disease), lumbar acute SI joint arthritis acute Wellness examination acute [facility] Work Phone: Evaluation note* Diagnosis Onset Date Resolution Status Admit Date Colon cancer screening acute Fe bruary 2024 3:26pm Gastro-esophageal reflux disease without esophagitis acute Febr uary 2024 3:26pm [facility] Work Phone: History general Narrative - Reported* Type Description Date Medical History DDD LUMBAR ARTHRITIS Medical History GERD Medical History BOWEL ADHESIONS Medical History UTERINE AND VAGINAL POLYPS Medical History hypertension Surgical History D&C Surgical History CERVICAL AND UTERINE POLYPS Surgical History OVARIAN CYST/BOWELS RELEASED FO R UTERUS Surgical History oophorectomy Surgical History knee surgery Hospitalization History see above [facility] Other Hospital Discharge instructionsAmbulatory Orders* Referral to Gastroenterology Location: None Selected [facility] Work Phone: Summary Purpose Family History Relationship Condition Age at Onset Recorded Date/T laurita father Hypertension Unknown Diabetes mellitus Unknown Advance Directives Advance Directive Response Recorded Date/ Time Advance Directives No August 25 0 9:06am Advance Directive Response Recorded Date/ Time Advance Directives No August 25 0 8:06am Hospital Course Note MR#: [id number] Pt. Name: Eveline Platt Admitted: [...] a pleasant 38-year-old female, who presented to [facility] on account of left acute visual loss and the patient was brought to the [facility] for further evaluation and management. Has had an extensive evaluation done including ESR, which is normal along (more content not included)... Note [facility] SURGERY Clinical Discharge Summary PERSON INFORMATION Name EVELINE PLATT Age 38 Years 1980 Sex FEMALE Language Maltese PCP Rosmery ALVA, Kimberly Peñaloza Marital Status [facility] Acct# Arrival 01/15/2019 08:48:00 Visit Reason SURGERY-RIGHT SALPINGO-OOPHORECTOMY AND DIAGNOSTIC LAPAROSCOPY Acuity LOS 043 00:30 Address: [address] [place] [address] Comment: PROVIDER INFORMATION VITALS INFORMATION Vital Sign Triage Latest Temp Oral Temp Temporal Temp Intravascular Temp Axillary Temp Rectal 02 Sat 100 % 100 % Respiratory Rate Peripheral Pulse Rate Apical Heart Rate Blood Pressure / 93 mmHg / 81 mmHg Comment: MEDICAL INFORMATION Allergy Info: No known allergies Prescriptions Given: acetaminophen-hydrocodone ([place] 5 mg-325 mg oral tablet) 1 tab(s) [...] disease), lumbar SI joint arthritis Wellness examination Chief Complaint Admit Date Amb Documentation February 12, 2024 1:07pm acid reflex April 29, 2024 3:26pm Reason for Visit Admit Date Colon cancer screening April 29 3:26pm Gastro-esophageal reflux disease without esophagitis April 29, 2024 3:26pm Additional Source Comments INFORMATION SOURCE (unrecogn ized section and content) DATE CREATED AUTHOR 12/10/2018 [facility] DATE CREATED AUTHOR AUTHOR'S ORGANIZ ATION 01/22/2019 [facility] DATE CREATED AUTHOR AUTHOR'S ORGANIZ ATION 04/16/2021 [facility] DATE CREATED AUTHOR AUTHOR'S ORGANIZ ATION 05/13/2022 [facility] Comments (unrecognize d section and content) In the event this informatio n is protected by the Federal Confidentiality of Alcohol and Drug Abuse Patient Records regulations: The Federal rules restrict any use of the information to criminally investigate or prosecute any alcohol or drug abuse patient.[facility] the event this information is protected by the Federal Confidentiality of Alcohol and Drug Abuse Patient Records regulations: The Federal rules restrict any use of the information to criminally investigate or prosecute any alcohol or drug abuse patient.[facility] the event this information is protected by the Federal Confidentiality of Alcohol and Drug Abuse Patient Records regulations: The Federal rules restrict any use of the information to criminally investigate or prosecute any alcohol or drug abuse patient.[facility] the event this information is protected by the Federal Confidentiality of Alcohol and Drug Abuse Patient Records regulations: The Federal rules restrict any use of the information to criminally investigate or prosecute any alcohol or drug abuse patient.[facility] REASON FOR VISIT (unrecogniz ed section and content) Cough- [phone] Care Teams (unrecognized sec tion and content) Team Status: Active Member Role Status Dates Kimberly Botello MD Primary Care Provider Active Team Status: Active Member Role Status Dates Kimberly Botello MD Primary Care Provider Active Start: February 12, 2024 Carrie Schwartz CMA Attending Provider Active Start: February 12, 2024 Team Status: Inactive Member Role Status Dates Kimberly Botello MD Primary Care Provide r, Attending Provider Active Start: April 29, 2024 End: April 29, 2024 Team Status: Active Member Role Status Dates Kimberly Botello MD Primary Care Provider Active Team Status: Inactive Member Role Status Tran Botello MD Primary Care Provide r, Attending Provider Active Start: December 11, 2023 End: December 11, 2023 Team Status: Active Member Role Status Tran Botello MD Primary Care Provider Active Start: February 12, 2024 Carrie Schwartz CMA Attending Provider Active Start: February 12, 2024 Team Status: Inactive Member Role Status Tran Botello MD Primary Care Provide r, Attending Provider Active Start: April 29, 2024 End: April 29, 2024 Goals (unrecognized section and content) Goals may [...] THE PRIMARY CLINICAL RECORDS. [facility] [employer] [facility]. provides no warranty or guarantee of the accuracy or completeness of information in this document.
--- NOTE | 2024-06-07 18:46 | ECG_ITS ---
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 Measurements Intervals Leonard Rate: 69 P: 35 AK: 150 QRS: -25 QRSD: 98 T: -4 QT: 416 QTc: 436 Interpretive Statements 1100 Sinus rhythm 5222 Moderate voltage criteria for LVH, may be normal variant 7202 Moderate left axis deviation 9130 borderline ECG Compared to ECG 12/03/2022 12:29:22 Left ventricular hypertrophy now present Left-axis deviation now present Electronically Signed On 06-09-2024 7:38:56 EDT by KAYCE EDWARDS M.D.
[2024-06-07] MEDS: KETOROLAC TROMETHAMINE 60 MG/2 ML VIAL IM (19:10)
--- NOTE | 2024-06-07 19:14 | ED_ITS ---
HPI HPI - General Adult General Chief complaint: Back Pain/Injury Stated complaint: HEAD AND NECK PAIN, RADIATING JAW Time Seen by Provider: 06/07/24 18:33 Source: patient Mode of arrival: walk-in History of Present Illness HPI narrative: 43-year-old female presents here with chief complaint of neck pain back pain lower extremity pain she states she feels fatigued and just with generalized malaise. Also states she has had right jaw pain. She does have a history of TMJ but denies any recent grinding of her teeth or issues with her jaw. Patient states she does not feel well. She denies any fevers or chills. She states she has had her symptoms for the last couple of days. Patient denies any recent injury trauma or falls. She states she does have a history of DJD. Related Data Home Medications ?Medication ?Instructions ?Recorded ?Confirmed dexlansoprazole 60 mg 60 mg PO QDAY 12/03/22 12/03/22 capsule,biphase delayed release metoprolol succinate 50 mg 50 mg PO QDAY 12/03/22 02/09/24 tablet,extended release 24 hr Previous Rx's ?Medication ?Instructions ?Recorded amoxicillin 500 mg capsule 500 mg PO TID 3 days #9 caps 02/09/24 naproxen 500 mg tablet (Naprosyn) 500 mg PO BID PRN pain #20 tabs 06/07/24 Allergies Allergy/AdvReac Type Severity Reaction Status Date / Time No Known Drug Allergies Allergy Verified 02/12/24 12:14 Opioid HPI Opioid Management Most Recent Opioid Data: Last Pain Scale 7 06/07/24 19:10 06/07/24 Last MAR Pain Assessment 06/07/24 19:10 Review of Systems ROS Narrative All Systems are negative except as noted/marked.All systems reviewed and otherwise negative PFSH PFS Social History Smoking status: Current every day smoker Little interest or pleasure in doing things: not at all Feeling down, depressed, or hopeless: not at all Exam Narrative Exam Narrative: All Systems are negative except as noted/marked.All systems reviewed and otherwise negative Nurses note and vital signs reviewed and patient is not hypoxic. General: The patient appears well and in no apparent distress. Patient is resting comfortably on cart. Skin: Warm, dry, no pallor noted. There is no rash noted. Head: Normocephalic, atraumatic neck full flexion extension of the neck, no midline tenderness, jaw has clicking to the right side consistent with TMJ, Eye: Normal conjunctiva, no drainage, EOMI. PERRL Ears, Nose, Mouth, and Throat: oral mucosa is moist. Nares patent. Mouth without vesicles. Ear canals patent. Tm's without Erythema Cardiovascular: Regular Rate and Rhythm Respiratory: Patient is in no distress, no accessory muscle use, lungs are clear to auscultation, no wheezing, rales or rhonchi Back: non-tender, no CVA tenderness bilaterally to percussion. GI: Normal bowel sounds, no tenderness to palpation, no masses appreciated. No rebound, guarding, or rigidity noted. Musculoskeletal: Ambulating well shows no acute swelling, or deformities. Neurological: A&O x4, normal speech Psychiatric: Cooperative Constitutional Vital Signs, click to edit/add: Last Vital Signs Temp 99.1 F 06/07/24 18:35 Pulse 78 06/07/24 18:35 Resp 16 06/07/24 18:35 BP 150/98 H 06/07/24 20:27 Pulse Ox 99 06/07/24 18:35 O2 Del Method Room Air 06/07/24 18:35 Course Vital Signs Vital signs: Vital Signs Temperature 99.1 F 06/07/24 18:35 Pulse Rate 78 06/07/24 18:35 Respiratory Rate 16 06/07/24 18:35 Blood Pressure 169/107 H 06/07/24 18:35 Pulse Oximetry 99 06/07/24 18:35 Oxygen Delivery Method Room Air 06/07/24 18:35 Temperature 99.1 F 06/07/24 18:35 Pulse Rate 78 06/07/24 18:35 Respiratory Rate 16 06/07/24 18:35 Blood Pressure 150/98 H 06/07/24 20:27 Pulse Oximetry 99 06/07/24 18:35 Oxygen Delivery Method Room Air 06/07/24 18:35 Medical Decision Making Differential Diagnosis Differential Diagnosis: arthritis, back pain, viral illness, myalgias Medical Records Medical records reviewed: Yes I reviewed the patient's medical records Medical records narrative: 43-year-old female presents here with chief complaint of neck pain back pain lower extremity pain she states she feels fatigued and just with generalized malaise. Also states she has had right jaw pain. She does have a history of TMJ but denies any recent grinding of her teeth or issues with her jaw. Patient states she does not feel well. She denies any fevers or chills. She states she has had her symptoms for the last couple of days. Patient denies any recent injury trauma or falls. She states she does have a history of DJD. Healthy 43-year-old female presenting with multiple complaints complaining of myalgias of the head neck and back area. Chest x-ray EKG were performed showed no acute abnormalities. Patient was also tested for COVID and flu. Her pain or myalgias are exhibited may be due to arthritic history or possible viral illness. Patient was medicated here with Toradol Decadron and Norflex. She will be discharged home with Naprosyn. Patient is otherwise healthy no acute distress. Lab Data Lab results reviewed: Yes I reviewed the patient's lab results Labs: Lab Results 06/07/24 Range/Units 18:53 Influenza Type A Ag Negative Influenza Type B Ag Negative SARS-CoV-2 Ag (CV2AG) Negative (NEGATIVE) ECG Data Attestation: ?I have reviewed the pertinent ECG results. Interpretation: 1843 ekg with a rate of 69 bpm DE interval 150 ms QRS duration [address] elevation or depression no STEMI Discharge Plan Discharge Chief Complaint: Back Pain/Injury Clinical Impression: Myalgia, Back pain Patient Disposition: Home, Self-Care Time of Disposition Decision: 20:03 Condition: Good Prescriptions / Home Meds: New naproxen [Naprosyn] 500 mg tablet 500 mg PO BID PRN (Reason: pain) Qty: 20 0RF No Action dexlansoprazole 60 mg capsule,biphase delayed releas 60 mg PO QDAY metoprolol succinate 50 mg tablet extended release 24 hr 50 mg PO QDAY amoxicillin 500 mg capsule 500 mg PO TID 3 Days Qty: 9 0RF Print Language: Italian Instructions: Musculoskeletal Pain (ED), Back Pain (ED) Referrals: Kimberly Boles MD [Primary Care Provider] - 1 week
[2024-06-07 19:27] LABS: Influenza Virus A Antigen Negative; Influenza Virus B Antigen Negative; Internal Control Within Normal Limits
[2024-06-07 19:31] LABS: Internal Control Within Normal Limits; SARS-CoV-2 Ag NEGATIVE (NEGATIVE)
[2024-06-07] MEDS: DEXAMETHASONE SOD PHOS 10 MG/ML VIAL PO (20:00)
[2024-06-07 20:27] VITALS: BP 150/98
[2024-06-07] MEDS: ORPHENADRINE 60 MG/ 2 ML VIAL IM (20:34)
== END 2024-06-07 20:43 | disposition home or self-care (01) ==
PROVIDERS: Physician Assistant; Emergency Provider Emergency Medicine; PCP Family Medicine
DX: M79.10 Myalgia, unspecified site (principal); M54.9 Dorsalgia, unspecified; M54.2 Cervicalgia; F17.200 Nicotine dependence, unspecified, uncomplicated; R53.83 Other fatigue
CPT/HCPCS: 71046; 87804; 87811; 93005; 96372; 99285; J1100; J1885; J2360

== ENCOUNTER 2024-06-10 16:48 | Emergency (ER) | payer OTHER, SELFPAY ==
[2024-06-10 16:56] VITALS: BP 180/122; PULSE 70; TEMP 36.6; O2SAT 98; BMI 40.6
[2024-06-10 17:39] VITALS: BP 154/91
--- NOTE | 2024-06-10 17:42 | ED.GENADUL1 ---
HPI HPI - General Adult General Chief complaint: Abdominal Pain Stated complaint: Constipation Symptoms Time Seen by Provider: 06/10/24 16:58 Source: patient Mode of arrival: walk-in Limitations: no limitations History of Present Illness HPI narrative: 43-year-old female to the emergency department with chief complaint of abdominal pain. Patient reports that she has a scheduled colonoscopy tomorrow due to some blood in the stool that she has been having. She has been working on her bowel prep throughout the day however has not had a bowel movement. She reports increasing pressure, she has been burping, she has not passed gas today. She came to the emergency department for evaluation for this problem. She was otherwise at her baseline health. Related Data Home Medications ?Medication ?Instructions ?Recorded ?Confirmed dexlansoprazole 60 mg 60 mg PO QDAY 12/03/22 06/10/24 capsule,biphase delayed release metoprolol succinate 50 mg 50 mg PO QDAY 12/03/22 06/10/24 tablet,extended release 24 hr Allergies Allergy/AdvReac Type Severity Reaction Status Date / Time No Known Drug Allergies Allergy Verified 06/10/24 16:59 Opioid HPI Opioid Management Most Recent Opioid Data: Last Pain Scale 7 06/07/24 19:10 06/07/24 Review of Systems ROS Status of ROS 10 or more systems reviewed and unremarkable except as noted in history and below PFSH PFSH Social History Smoking status: Current every day smoker Little interest or pleasure in doing things: not at all Feeling down, depressed, or hopeless: not at all Exam Narrative Exam Narrative: VITALS: I have reviewed the triage vital signs. GENERAL: Well developed, well appearing adult in no acute distress. NEURO: Alert and oriented. Moves all extremities. Face is symmetric and expressive. EYES: PERRL. No scleral icterus or conjunctival injection. No discharge. HENT: Normocephalic, atraumatic. Hearing is grossly intact. Nares grossly patent and without discharge. Mucous membranes moist. NECK: No JVD. Patient moves neck without restriction. CARDIO: Rhythm regular. Normal rate. No murmur, rub, or gallop. Pulses equal bilaterally in the upper and lower extremity. No lower extremity edema. PULM: Lungs clear to auscultation in all baker. No wheezes, rales, or rhonchi. No conversational dyspnea. No splinting, stridor, or accessory muscle use. GI/: Abdomen is soft, mildly distended. Normoactive bowel sounds. EXTREMITIES: Symmetric muscle bulk. No joint swelling. No clubbing, cyanosis, or deformity. SKIN: Warm and dry. Normal turgor. No rash or lesions appreciated. PSYCH: Mood, affect, and interaction is appropriate to the setting. Constitutional Vital Signs, click to edit/add: Last Vital Signs Temp 98 F 06/10/24 16:56 Pulse 70 06/10/24 16:56 Resp 16 06/10/24 16:56 BP 154/91 H 06/10/24 17:39 Pulse Ox 98 06/10/24 16:56 O2 Del Method Room Air 06/10/24 16:56 Course Vital Signs Vital signs: Vital Signs Temperature 98 F 06/10/24 16:56 Pulse Rate 70 06/10/24 16:56 Respiratory Rate 16 06/10/24 16:56 Blood Pressure 180/122 H 06/10/24 16:56 Pulse Oximetry 98 06/10/24 16:56 Oxygen Delivery Method Room Air 06/10/24 16:56 Temperature 98 F 06/10/24 16:56 Pulse Rate 70 06/10/24 16:56 Respiratory Rate 16 06/10/24 16:56 Blood Pressure 154/91 H 06/10/24 17:39 Pulse Oximetry 98 06/10/24 16:56 Oxygen Delivery Method Room Air 06/10/24 16:56 Medical Decision Making MDM Narrative Medical decision making narrative: 43-year-old female to the emergency department chief complaint of no bowel movement or passing gas and increased belching after beginning bowel prep this morning. Vital stable, the patient is afebrile. She has mildly tender abdominal exam. She declines any pain or nausea medicine. Care was signed out to Dr. Wasserman with disposition pending. Working diagnosis: Abdominal pain, generalized Lab Data Lab results reviewed: Yes I reviewed the patient's lab results Labs: Lab Results 06/10/24 Range/Units 17:43 WBC 8.6 (4.0-11.0) 10^3/uL RBC 4.12 L (4.20-5.40) 10^6/uL Hgb 13.3 (12.0-16.0) g/dL Hct 38.5 (36.0-48.0) % MCV 93.4 (81.0-99.0) fL MCH 32.3 (26.7-34.0) pg MCHC 34.5 (29.9-35.2) g/dL RDW 11.8 (11.0-15.0) % Plt Count 224 (150-450) 10^3/uL MPV 11.6 (9.5-13.5) fL Neut % (Auto) 58.6 (43.0-75.0) % Lymph % (Auto) 29.1 (20.5-60.0) % Major % (Auto) 8.9 (1.7-12.0) % Eos % (Auto) 2.3 (0.9-7.0) % Baso % (Auto) 0.5 (0.2-2.0) % Neut # (Auto) 5.0 (1.4-6.5) 10^3/uL Lymph # (Auto) 2.5 (1.2-3.8) 10^3/uL Major # (Auto) 0.8 (0.3-0.8) 10^3/uL Eos # (Auto) 0.2 (0.0-0.7) 10^3/uL Baso # (Auto) 0.0 (0.0-0.1) 10^3/uL Abs Immat Gran (auto) 0.05 H (0.00-0.03) 10^3/uL Imm/Tot Granulo (auto) 0.6 H (0.0-0.5) % Sodium 140 (136-145) mmol/L Potassium 3.4 L (3.5-5.1) mmol/L Chloride 104 (98-107) mmol/L Carbon Dioxide 29.4 (21.0-32.0) mmol/L Anion Gap 10.0 BUN 12.0 (7.0-18.0) mg/dL Creatinine 0.82 (0.55-1.02) mg/dL Est GFR ( Amer) >60 (>=60 mL/min/1.73m^2) Est GFR (Non-Af Amer) >60 (>=60 mL/min/1.73m^2) BUN/Creatinine Ratio 14.6 Glucose 111 H (74-106) mg/dL Calcium 8.4 L (8.5-10.1) mg/dL Total Bilirubin 0.4 (0.2-1.0) mg/dL AST 17 (15-37) U/L ALT 35 (14-59) U/L Alkaline Phosphatase 82 (46-116) U/L Total Protein 6.9 (6.4-8.2) g/dL Albumin 3.5 (3.4-5.0) g/dL Globulin 3.4 g/dL Albumin/Globulin Ratio 1.0 Lipase 35.0 (16.0-77.0) U/L Serum HCG, Qual Negative (NEGATIVE) Discharge Plan Discharge Chief Complaint: Abdominal Pain Patient Disposition: Still a Patient Prescriptions / Home Meds: No Action dexlansoprazole 60 mg capsule,biphase delayed releas 60 mg PO QDAY metoprolol succinate 50 mg tablet extended release 24 hr 50 mg PO QDAY Print Language: Upper Sorbian Referrals: Kimberly Boles MD [Primary Care Provider] - 1 week
[2024-06-10 17:50] LABS: Basophils Percent Auto 0.5 % (0.2-2.0); Eosinophils Absolute Auto 0.2 10^3/uL (0.0-0.7); Eosinophils Percent Auto 2.3 % (0.9-7.0); Hematocrit 38.5 % (36.0-48.0); Hemoglobin 13.3 g/dL (12.0-16.0); Immature Granulocytes Abs Auto 0.05 10^3/uL (0.00-0.03); Immature Granulocytes Pct Auto 0.6 % (0.0-0.5); Lymphocytes Absolute Auto 2.5 10^3/uL (1.2-3.8); Lymphocytes Percent Auto 29.1 % (20.5-60.0); Mean Corpuscular HGB Conc 34.5 g/dL (29.9-35.2); Mean Corpuscular Hemoglobin 32.3 pg (26.7-34.0); Mean Corpuscular Volume 93.4 fL (81.0-99.0); Mean Platelet Volume 11.6 fL (9.5-13.5); Monocytes Absolute Auto 0.8 10^3/uL (0.3-0.8); Monocytes Percent Auto 8.9 % (1.7-12.0); Neutrophils Percent Auto 58.6 % (43.0-75.0); Platelet Count 224 10^3/uL (150-450); Red Blood Count 4.12 10^6/uL (4.20-5.40); Red Cell Distribution Width 11.8 % (11.0-15.0); White Blood Count 8.6 10^3/uL (4.0-11.0)
[2024-06-10 18:04] LABS: HCG Qualitative NEGATIVE (NEGATIVE); Internal Control Within Normal Limits
[2024-06-10 18:06] LABS: Alanine Aminotransferase 35 U/L (14-59); Albumin Level 3.5 g/dL (3.4-5.0); Alkaline Phosphatase 82 U/L (46-116); Aspartate Amino Transferase 17 U/L (15-37); BUN Creatinine Ratio 14.6; Bilirubin Total 0.4 mg/dL (0.2-1.0); Calcium 8.4 mg/dL (8.5-10.1); Carbon Dioxide 29.4 mmol/L (21.0-32.0); Chloride 104 mmol/L (98-107); Estimated GFR (African America >60 (>=60 mL/min/1.73m^2); Estimated GFR (Non-African Ame >60 (>=60 mL/min/1.73m^2); Globulin 3.4 g/dL; Glucose 111 mg/dL (74-106); Potassium 3.4 mmol/L (3.5-5.1); Sodium 140 mmol/L (136-145); Total Protein 6.9 g/dL (6.4-8.2)
--- NOTE | 2024-06-10 20:21 | ED.GENADUL1 ---
HPI HPI - General Adult General Chief complaint: Abdominal Pain Stated complaint: Constipation Symptoms Time Seen by Provider: 06/10/24 16:58 Source: patient Mode of arrival: walk-in Limitations: no limitations History of Present Illness HPI narrative: 43-year-old female presented to the emergency department for abdominal pain and was initially seen by Dr. Schwartz. Please see his full history and physical exam. Related Data Home Medications ?Medication ?Instructions ?Recorded ?Confirmed dexlansoprazole 60 mg 60 mg PO QDAY 12/03/22 06/10/24 capsule,biphase delayed release metoprolol succinate 50 mg 50 mg PO QDAY 12/03/22 06/10/24 tablet,extended release 24 hr Allergies Allergy/AdvReac Type Severity Reaction Status Date / Time No Known Drug Allergies Allergy Verified 06/10/24 16:59 Opioid HPI Opioid Management Most Recent Opioid Data: Last Pain Scale 7 06/07/24 19:10 06/07/24 PFSH PFSH Social History Smoking status: Current every day smoker Little interest or pleasure in doing things: not at all Feeling down, depressed, or hopeless: not at all Exam Constitutional Vital Signs, click to edit/add: Last Vital Signs Temp 98 F 06/10/24 16:56 Pulse 70 06/10/24 16:56 Resp 16 06/10/24 16:56 BP 154/91 H 06/10/24 17:39 Pulse Ox 98 06/10/24 16:56 O2 Del Method Room Air 06/10/24 16:56 Course Vital Signs Vital signs: Vital Signs Temperature 98 F 06/10/24 16:56 Pulse Rate 70 06/10/24 16:56 Respiratory Rate 16 06/10/24 16:56 Blood Pressure 180/122 H 06/10/24 16:56 Pulse Oximetry 98 06/10/24 16:56 Oxygen Delivery Method Room Air 06/10/24 16:56 Temperature 98 F 06/10/24 16:56 Pulse Rate 70 06/10/24 16:56 Respiratory Rate 16 06/10/24 16:56 Blood Pressure 154/91 H 06/10/24 17:39 Pulse Oximetry 98 06/10/24 16:56 Oxygen Delivery Method Room Air 06/10/24 16:56 Medical Decision Making MDM Narrative Medical decision making narrative: Her workup including CT of the abdomen is negative. 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 She is able to be discharged home. Treatment diagnosis and follow-up were discussed with the patient. Differential Diagnosis Differential Diagnosis: Abdominal pain, bowel obstruction, pancreatitis Lab Data Lab results reviewed: Yes I reviewed the patient's lab results Labs: Lab Results 06/10/24 Range/Units 17:43 WBC 8.6 (4.0-11.0) 10^3/uL RBC 4.12 L (4.20-5.40) 10^6/uL Hgb 13.3 (12.0-16.0) g/dL Hct 38.5 (36.0-48.0) % MCV 93.4 (81.0-99.0) fL MCH 32.3 (26.7-34.0) pg MCHC 34.5 (29.9-35.2) g/dL RDW 11.8 (11.0-15.0) % Plt Count 224 (150-450) 10^3/uL MPV 11.6 (9.5-13.5) fL Neut % (Auto) 58.6 (43.0-75.0) % Lymph % (Auto) 29.1 (20.5-60.0) % [place] % (Auto) 8.9 (1.7-12.0) % Eos % (Auto) 2.3 (0.9-7.0) % Baso % (Auto) 0.5 (0.2-2.0) % Neut # (Auto) 5.0 (1.4-6.5) 10^3/uL Lymph # (Auto) 2.5 (1.2-3.8) 10^3/uL [place] # (Auto) 0.8 (0.3-0.8) 10^3/uL Eos # (Auto) 0.2 (0.0-0.7) 10^3/uL Baso # (Auto) 0.0 (0.0-0.1) 10^3/uL Abs Immat Gran (auto) 0.05 H (0.00-0.03) 10^3/uL Imm/Tot Granulo (auto) 0.6 H (0.0-0.5) % Sodium 140 (136-145) mmol/L Potassium 3.4 L (3.5-5.1) mmol/L Chloride 104 (98-107) mmol/L Carbon Dioxide 29.4 (21.0-32.0) mmol/L Anion Gap 10.0 BUN 12.0 (7.0-18.0) mg/dL Creatinine 0.82 (0.55-1.02) mg/dL Est GFR ( Amer) >60 (>=60 mL/min/1.73m^2) Est GFR (Non-Af Amer) >60 (>=60 mL/min/1.73m^2) BUN/Creatinine Ratio 14.6 Glucose 111 H (74-106) mg/dL Calcium 8.4 L (8.5-10.1) mg/dL Total Bilirubin 0.4 (0.2-1.0) mg/dL AST 17 (15-37) U/L ALT 35 (14-59) U/L Alkaline Phosphatase 82 (46-116) U/L Total Protein 6.9 (6.4-8.2) g/dL Albumin 3.5 (3.4-5.0) g/dL Globulin 3.4 g/dL Albumin/Globulin Ratio 1.0 Lipase 35.0 (16.0-77.0) U/L Serum HCG, Qual Negative (NEGATIVE) Imaging Data CT scan - abdomen: Radiologist's impression: Fatty infiltration of the liver, no features of pancreatitis or cholecystitis, no bowel or renal obstruction, no features of enteritis or colitis, normal appendix is well-seen Discharge Plan Discharge Chief Complaint: Abdominal Pain Clinical Impression: Abdominal pain Patient Disposition: Home, Self-Care Time of Disposition Decision: 20:15 Condition: Good Mode of Transportation: Private Vehicle Prescriptions / Home Meds: No Action dexlansoprazole 60 mg capsule,biphase delayed releas 60 mg PO QDAY metoprolol succinate 50 mg tablet extended release 24 hr 50 mg PO QDAY Print Language: Uzbek Instructions: Abdominal Pain (ED) Additional Instructions: Notify your physician in the morning about your status. Referrals: Kimberly Boles MD [Primary Care Provider] - 1 week
== END 2024-06-10 20:25 | disposition home or self-care (01) ==
PROVIDERS: Student in an Organized Health Care Education/Training Program; Emergency Provider Emergency Medicine; PCP Family Medicine
DX: R10.9 Unspecified abdominal pain (principal); F17.200 Nicotine dependence, unspecified, uncomplicated
CPT/HCPCS: 36415; 74177; 80053; 83690; 84703; 85025; 99285; Q9967

== ENCOUNTER 2024-07-06 22:32 | Emergency (ER) | payer OTHER, SELFPAY ==
[2024-07-06 22:37] VITALS: BP 160/100; PULSE 98; TEMP 36.8; O2SAT 99; BMI 39.5
--- OUTSIDE RECORDS SUMMARY | 2024-07-06 22:39 | XMS_ITS | CCD ---
Author Organization [facility] Care Team Providers Care Financial Reporting Director Name Role Phone CRISTINA RAMIREZ Attending Unavailable [...] 3:52pm Start: 06-02-2022 take 1 capsule by [facility] every twenty-four hours Dexilant 60 MG 1 [...] unspecified] Episodic Other aftercare (1 source) Other oil heaterman (current) drug therapy; Translations: [OTH HALF-WAY CURRENT DRUG THERAPY] Onset: 05-12-2022 Episodic Other [...] 05-21-2021 BASO # 0.0 103/ul Normal 0.0-0.1 [facility] Comment on above: Performed By: #### C BC #### [facility] [address] [address] [address] Da Graham Basophils/100 WBC (Bld) 0.3 % Normal 0.2-2.0 [facility] Comment on above: Performed By: #### C BC #### [facility] [address] [place] [address] Dr. Da Graham EO # 0.2 103/ul Normal 0.0-0.7 [facility] Comment on above: Performed By: #### C BC #### [facility] [address] [place] [address] Dr. Da Graham Eosinophils/100 WBC (Bld) 2.3 % Normal 0.9-7.0 [facility] Comment on above: Performed By: #### C BC #### [facility] [address] [place] [address] Dr. Da Graham Erythrocyte distribution width (RBC) [Ratio] 11.5 % Normal 11.0-15.0 [facility] Comment on above: Performed By: #### C BC #### [facility] [address] [place] [address] Dr. Da Graham Hematocrit (Bld) [Volume fraction] 41.0 % Normal 36.0-48.0 [facility] Comment on above: Performed By: #### C BC #### [facility] [address] [place] [address] Dr. Da Graham Hemoglobin (Bld) [Mass/Vol] 13.5 g/dL Normal 12.0-16.0 [facility] Comment on above: Performed By: #### C BC #### [facility] [address] [place] [address] Dr. Da Graham IG # 0.04 10e3/ul Critically high 0.00-0.03 [facility] Comment on above: Performed By: #### C BC #### [facility] [address] [place] [address] Dr. Da Graham IG % 0.5 % Normal 0.0-0.5 [facility] Comment on above: Performed By: #### C BC #### [facility] [address] [place] [address] Dr. Da Graham LYMPH # 1.9 103/ul Normal 1.2-3.[address] [facility] Comment on above: Performed By: #### C BC #### [facility] [address] [place] [address] Dr. Da Graham Lymphocytes/100 WBC (Bld) 25.2 % Normal 20.5-60.0 [facility] Comment on above: Performed By: #### C BC #### [facility] [address] [place] [address] Dr. Da Graham MANUAL DIFF REQ NO Normal [facility] Comment on above: Performed By: #### C BC #### [facility] [address] [place] [address] Dr. Da Graham MCH (RBC) [Entitic mass] 31.6 pg Normal 26.7-34.0 [facility] Comment on above: Performed By: #### C BC #### [facility] [address] [place] [address] Dr. Da Graham MCHC (RBC) [Mass/Vol] 32.9 g/dL Normal 29.9-35.2 [facility] Comment on above: Performed By: #### C BC #### [facility] [address] [place] [address] Dr. Da Graham MCV (RBC) [Entitic vol] 96.0 fL Normal 81.0-99.0 [facility] Comment on above: Performed By: #### C BC #### [facility] [address] [place] [address] Dr. Da Graham MONO # 0.6 103/ul Normal 0.3-0.8 [facility] Comment on above: Performed By: #### C BC #### [facility] [address] [place] [address] Dr. Da Graham Monocytes/100 WBC (Bld) 7.7 % Normal 1.7-12.[address] [facility] Comment on above: Performed By: #### C BC #### [facility] [address] [place] [address] Dr. Da Graham NEUT # 4.8 103/ul Normal 1.4-6.[address] [facility] Comment on above: Performed By: #### C BC #### [facility] [address] [place] [address] Dr. Da Graham Neutrophils/100 WBC (Bld) 64.0 % Normal 43.0-75.0 [facility] Comment on above: Performed By: #### C BC #### [facility] [address] [place] [address] Dr. Da Graham Platelet mean volume (Bld) [Entitic vol] 11.4 fL Normal 9.5-13.5 [facility] Comment on above: Performed By: #### C BC #### [facility] [address] [place] [address] Dr. Da Graham PLT 247 103/ul Normal 150-450 [facility] Comment on above: Performed By: #### C BC #### [facility] [address] [place] [address] Dr. Da Graham RBC 4.27 106/ul Normal 4.20-5.40 [facility] Comment on above: Performed By: #### C BC #### [facility] [address] [place] [address] Dr. Da Graham WBC 7.5 103/ul Normal 4.0-11.0 [facility] Comment on above: Performed By: #### C BC #### [facility] [address] [place] [address] Dr. Da Graham FERRITINon 05-21-2021 Ferritin [Mass/Vol] 132.0 ng/mL Normal 6.2-137.0 [facility] Comment on above: Performed By: #### F ERR #### [facility] [address] [place] [address] Dr. Da Graham PROF CHEM 8 (BAS METB)on Anion gap [Moles/Vol] 11.2 mmol/L Normal [facility] Comment on above: Performed By: #### B MP #### [facility] [address] [place] [address] Dr. Da Graham Calcium [Mass/Vol] 8.0 mg/dL Critically low 8.4-10.2 [facility] Comment on above: Performed By: #### B MP #### [facility] [address] [address] [address] Da Graham Chloride [Moles/Vol] 104 mmol/L Normal 98-107 [facility] Comment on above: Performed By: #### B MP #### [facility] [address] [address] [address] Da Graham CO2 [Moles/Vol] 27.4 mmol/L Normal 22.0-30.0 [facility] Comment on above: Performed By: #### B MP #### [facility] [address] [address] [address] Da Graham Creatinine [Mass/Vol] 0.66 mg/dL Normal 0.52-1.04 [facility] Comment on above: Performed By: #### B MP #### [facility] [address] [address] [address] Da Graham EGFR-AF TOGOLESE >60 Normal >=60 [facility] Comment on above: Performed By: #### B MP #### [facility] [address] [address] [address] Da Graham EGFR-NON AF TOGOLESE >60 Normal >=60 [facility] Comment on above: Performed By: #### B MP #### [facility] [address] [address] [address] Da Graham Glucose [Mass/Vol] 129 mg/dL Critically high 74-106 [facility] Comment on above: Performed By: #### B MP #### [facility] [address] [address] [address] Da Graham Potassium [Moles/Vol] 3.6 mmol/L Normal 3.4-5.0 [facility] Comment on above: Performed By: #### B MP #### [facility] [address] [place] [address] Dr. Da Graham Sodium [Moles/Vol] 139 mmol/L Normal 137-145 [facility] Comment on above: Performed By: #### B MP #### [facility] [address] [address] [address] Da Graham Urea nitrogen [Mass/Vol] 10.0 mg/dL Normal 7.0-17.0 [facility] Comment on above: Performed By: #### B MP #### [facility] [address] [address] [address] Da Graham Urea nitrogen/Creatinine [Mass ratio] 15.2 mg/mg Normal [facility] Comment on above: Performed By: #### B MP #### [facility] [address] [address] [address] Da Luo 09-16-2020 CNPN Telephone (NCCAP) EVELINE PLATT ([id number]) 1980 F Date Time Provider Department 09/16/20 [facility] During your visit today, we recorded the following information about you: Alycia Marie [facility] 09/16/2020 1:53 PM Signed Patient did not [...] Status:Closed by ALYCIA FELIX on 09/17/20 Normal [facility] CNOVSPon 06-24-2020 CNOVSP Visit (SP) Office ([place]) PLATTEVELINE OBANDO ([id number]) 1980 F Date Time Provider Department 06/24/20 2:15 PM BLAKE PATEL During your visit today, we recorded the following information about you: Temperature Pulse Respiration Blood pressure 97.4 degrees 98/minute 16/minute 135/68 Weight Height Last Period 94.1 kg 1.549 m 05/25/20 Blake Patel MD 06/25/2020 6:20 AM Signed NAME: Eveline Platt CLINIC NO.: [id number] DATE OF SERVICE: June 24, 2020 Some [...] also endorses heavy menses. 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 Per HPI and [...] (mg/dL) Date (more content not included)... Normal [facility] Comp Metabolic Panelon 06-24 Albumin [Mass/Vol] 4.5 g/dL Normal 3.9-4.9 [facility] ALP [Catalytic activity/Vol] 86 U/L Normal 34-123 [facility] ALT [Catalytic activity/Vol] 27 U/L Normal 7-38 [facility] Anion gap [Moles/Vol] 7 mmol/L Low 9-18 [facility] AST [Catalytic activity/Vol] 22 U/L Normal 13-35 [facility] Bilirubin [Mass/Vol] 0.2 mg/dL Normal 0.2-1.3 [facility] Calcium [Mass/Vol] 9.0 mg/dL Normal 8.5-10.2 [facility] Chloride [Moles/Vol] 106 mmol/L High 97-105 [facility] CO2 [Moles/Vol] 25 mmol/L Normal 22-30 [facility] Creatinine [Mass/Vol] 0.64 mg/dL Normal 0.58-0.96 [facility] eGFR- Amer. >60 Normal [facility] eGFR-All Other Races >60 Normal [facility] Comment on above: Result Comment: eGFR [...] GFR. Glucose [Mass/Vol] 101 mg/dL High 74-99 [facility] Comment on above: Result Comment: The [place] Diabetes Association (ADA) provides guidance for cutoff [...] Standards of Medical Care in Diabetes 2016, [place] Diabetes Association. Diabetes Care. 2016.39(Suppl 1). Potassium [Moles/Vol] 3.9 mmol/L Normal 3.7-5.1 [facility] Protein [Mass/Vol] 7.1 g/dL Normal 6.3-8.0 [facility] Sodium [Moles/Vol] 138 mmol/L Normal 136-144 [facility] Urea nitrogen [Mass/Vol] 10 mg/dL Normal 7-21 [facility] Ferritinon 06-24-2020 Ferritin [Mass/Vol] 64.2 ng/mL Normal 14.7-205.1 [facility] Comment on above: Performed By: #### F ERR, IRON #### [facility] [address] [address] Iron and TIBCon 06-24-2020 Iron [Mass/Vol] 43 ug/dL Normal 41-186 [facility] Comment on above: Performed By: #### F ERR, IRON #### [facility] [address] [address] TIBC 305 ug/dL Normal 232-386 [facility] Comment on above: Performed By: #### F ERR, IRON #### [facility] [address] [id number] Transferrin Saturatn 14 % Low 15-57 [facility] Comment on above: Performed By: #### F ERR, IRON #### [facility] [address] [id number] Remote CBCDIF (for [facility] use o nly)on 06-24-2020 Abs Baso <0.03 Normal <0.11 [facility] Abs Pinal 0.76 k/uL Normal <0.87 [facility] Abs Neut 4.47 k/uL Normal 1.45-7.50 [facility] Absolute nRBC <0.01 Normal <0.01 [facility] Basophils/100 WBC (Bld) 0.3 % Normal [facility] DTYPE Auto Diff Normal [facility] Eosinophils (Bld) [#/Vol] 0.13 10*3/uL Normal <0.46 [facility] Eosinophils/100 WBC (Bld) 1.9 % Normal [facility] Erythrocyte distribution width (RBC) [Ratio] 13.2 % Normal 11.5-15.0 [facility] Hematocrit (Bld) [Volume fraction] 40.6 % Normal 36.0-46.0 [facility] Hemoglobin (Bld) [Mass/Vol] 13.1 g/dL Normal 11.5-15.5 [facility] Lymphocytes (Bld) [#/Vol] 1.60 10*3/uL Normal 1.00-4.00 [facility] Lymphocytes/100 WBC (Bld) 22.9 % Normal [facility] MCH 29.4 pG Normal 26.0-34.0 [facility] MCHC (RBC) [Mass/Vol] 32.3 g/dL Normal 30.5-36.0 [facility] MCV (RBC) [Entitic vol] 91.2 fL Normal 80.0-100.0 [facility] Monocytes/100 WBC (Bld) 10.9 % Normal [facility] Neutrophils/100 WBC (Bld) 64.0 % Normal [facility] NRBCs 0.0 /100 WBC Normal 0 [facility] Platelet mean volume (Bld) [Entitic vol] 11.5 fL Normal 9.0-12.7 [facility] Platelets (Bld) [#/Vol] 235 10*3/uL Normal 150-400 [facility] RBC (Bld) [#/Vol] 4.45 10*6/uL Normal 3.90-5.20 [facility] WBC (Bld) [#/Vol] 6.98 10*3/uL Normal 3.70-11.00 [facility] CNOVSPon 05-13-2020 CNOVSP Visit (SP) Office ([place]) EVELINE PLATT ([id number]) 1980 F Date Time Provider Department 05/13/20 11:15 AM BLAKE PATEL During your visit today, we recorded the following information about you: Temperature Pulse Respiration Blood pressure 97.3 degrees 79/minute 18/minute 142/87 Weight Height 92.6 kg 1.549 m Blake Patel MD 05/13/2020 12:21 PM Signed NAME: Eveline Platt CLINIC NO.: [id number] DATE OF SERVICE: May 13, 2020 Referring [...] also endorses heavy menses. 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 Per HPI and [...] Brain tumor Blake Patel MD, CPE [facility] Maricarmen (more content not included)... Normal [facility] Comp Metabolic Panelon 05-13 Albumin [Mass/Vol] 4.4 g/dL Normal 3.9-4.9 [facility] ALP [Catalytic activity/Vol] 81 U/L Normal 34-123 [facility] ALT [Catalytic activity/Vol] 38 U/L Normal 7-38 [facility] Anion gap [Moles/Vol] 7 mmol/L Low 9-18 [facility] AST [Catalytic activity/Vol] 29 U/L Normal 13-35 [facility] Bilirubin [Mass/Vol] 0.3 mg/dL Normal 0.2-1.3 [facility] Calcium [Mass/Vol] 9.2 mg/dL Normal 8.5-10.2 [facility] Chloride [Moles/Vol] 105 mmol/L Normal 97-105 [facility] CO2 [Moles/Vol] 27 mmol/L Normal 22-30 [facility] Creatinine [Mass/Vol] 0.69 mg/dL Normal 0.58-0.96 [facility] eGFR- Amer. >60 Normal [facility] eGFR-All Other Races >60 Normal [facility] Comment on above: Result Comment: eGFR [...] GFR. Glucose [Mass/Vol] 127 mg/dL High 74-99 [facility] Comment on above: Result Comment: The [place] Diabetes Association (ADA) provides guidance for cutoff [...] Standards of Medical Care in Diabetes 2016, [place] Diabetes Association. Diabetes Care. 2016.39(Suppl 1). Potassium [Moles/Vol] 4.2 mmol/L Normal 3.7-5.1 [facility] Protein [Mass/Vol] 7.1 g/dL Normal 6.3-8.0 [facility] Sodium [Moles/Vol] 139 mmol/L Normal 136-144 [facility] Urea nitrogen [Mass/Vol] 9 mg/dL Normal 7-21 [facility] Ferritinon 05-13-2020 Ferritin [Mass/Vol] 45.5 ng/mL Normal 14.7-205.1 [facility] Comment on above: Performed By: #### F ERR, IRON #### [facility] [address] [place], [place] [address] Iron and TIBCon 05-13-2020 Iron [Mass/Vol] 85 ug/dL Normal 41-186 [facility] Comment on above: Performed By: #### F ERR, IRON #### [facility] [address] [place], [place] [address] TIBC 317 ug/dL Normal 232-386 [facility] Comment on above: Performed By: #### F ERR, IRON #### [facility] [address] [place], [place] [address] Transferrin Saturatn 27 % Normal 15-57 [facility] Comment on above: Performed By: #### F ERR, IRON #### [facility] [address] [address] Remote CBCDIF (for [facility] use o nly)on 05-13-2020 Abs Baso <0.03 Normal <0.11 [facility] Abs Pinal 0.64 k/uL Normal <0.87 [facility] Abs Neut 3.85 k/uL Normal 1.45-7.50 [facility] Absolute nRBC <0.01 Normal <0.01 [facility] Basophils/100 WBC (Bld) 0.3 % Normal [facility] DTYPE Auto Diff Normal [facility] Eosinophils (Bld) [#/Vol] 0.19 10*3/uL Normal <0.46 [facility] Eosinophils/100 WBC (Bld) 3.3 % Normal [facility] Erythrocyte distribution width (RBC) [Ratio] 13.4 % Normal 11.5-15.0 [facility] Hematocrit (Bld) [Volume fraction] 38.8 % Normal 36.0-46.0 [facility] Hemoglobin (Bld) [Mass/Vol] 12.7 g/dL Normal 11.5-15.5 [facility] Lymphocytes (Bld) [#/Vol] 1.05 10*3/uL Normal 1.00-4.00 [facility] Lymphocytes/100 WBC (Bld) 18.2 % Normal [facility] MCH 29.5 pG Normal 26.0-34.0 [facility] MCHC (RBC) [Mass/Vol] 32.7 g/dL Normal 30.5-36.0 [facility] MCV (RBC) [Entitic vol] 90.2 fL Normal 80.0-100.0 [facility] Monocytes/100 WBC (Bld) 11.1 % Normal [facility] Neutrophils/100 WBC (Bld) 67.1 % Normal [facility] NRBCs 0.0 /100 WBC Normal 0 [facility] Platelet mean volume (Bld) [Entitic vol] 11.2 fL Normal 9.0-12.7 [facility] Platelets (Bld) [#/Vol] 240 10*3/uL Normal 150-400 [facility] RBC (Bld) [#/Vol] 4.30 10*6/uL Normal 3.90-5.20 [facility] WBC (Bld) [#/Vol] 5.77 10*3/uL Normal 3.70-11.00 [facility] Coding Summaryon 01-22-2019 Coding Summary CODING DATE: 01/22/2019 [facility] STATUS: Home 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 APC [...] PROC APC STAT DESCRIPTION DOCTOR NAME DATE 68923 [id number] J1 Laparoscopy, surgical; Eliezer Torres DO with removal of adnexal structures (partial or total oophorectomy and/or salpingectomy) RT Right side (used to identify procedures performed on the right side of the body) [id number] J1 Laparoscopy, surgical; Eliezer Torres DO [...] Awilda Edouard Date Saved: 01/22/2019 10:54 am [facility] - AP Resultson 9 Lab - AP Results [id number] .00OTGTIFF [facility] MAGR Postoperative Recordon 01-21-2019 MAG[facility] Summary Primary Physician: Eliezer Torres DO Finalized Date/Time: 01/21/19 13:15:02 Pt. Name: EVELINE PLATT Praveen Muñoz/Sex: 1980 FEMALE Med Rec #: [id number] Physician: Eliezer Torres DO Financial #: [id number] Pt. Type: D Room/Bed: / Admit/Disch: 01/15/19 [...] Signed By: Brittany Soler RN 01/21/19 13:15 [facility] Pathology Sendout Teston Pathology Send Out. See Report [facility] Comment on above: Order Comment: Right fallopian tube and right ovaryPost op Dx: Pelvic pain Performed By: #### 2 [id number] ####[facility] (DEFAULT)[address] [place] [address] History and Physicalon 01-17 History and Physical [id number] .00OTGTIFF [facility] Operative Report - Surgeon/P sourav 01-17-2019 Operative Report - Surgeon/Physician [id number] .00OTGTIFF [facility] Provider Orderson 01-17-2019 Provider Orders [id number] [facility] 01-16-2019 Consent Forms [id number] [facility] Intraoperative Recordon 01-16-2019 MAGR Intraoperative Record MAGR Intra-Op Record Summary Primary Physician: Eliezer Torres DO Finalized Date/Time: 01/16/19 15:11:50 Pt. Name: LUKE EVELINEABRAM Morton D.O.B./Sex: 1980 FEMALE Med Rec #: [id number] Physician: Eliezer Torres DO Financial #: [id number] Pt. Type: D Room/Bed: / Admit/Disch: 01/15/19 [...] Role Performed Surgeon - Primary Anesthesiologist of Tower Excavator Operator Record Time In 01/15/19 11:36:00 01/15/19 [...] M Role Performed Scrub Personnel Scrub Personnel Water Treatment Plant Repairer Time In 01/15/19 11:36:00 01/15/19 11:36:00 01/15/19 11:36:00 Time Out 01/15/19 13:26:00 01/15/19 13:26:00 01/15/19 13:26:00 Procedure Tubal Ligation Tubal Ligation Tubal Ligation Laparoscopic Laparoscopic Laparoscopic Last Modified By: Bianka Frias RN, RN, Bianka Meyer RN 01/15/19 13:34:13 01/15/19 13:34:13 01/15/19 13:32:06 Entry 7 Case Attendee Brittany Guthrie RN Role Performed Tower Excavator Operator Time In 01/15/19 11:36:00 Time Out [...] Uncrossed? Yes Press Points Checked Yes Additional [place] Pad Positioning Device Safety Strap Information Outcome [...] Count Time 01/15/19 11:50:00 Performed By Zev BOATSWAIN MATE, Zamzam Counts Verification Final Counts Items Included [...] Outcome Met (O.40) Yes Last Modified By: Biakna Frias RN 01/15/19 12:35:43 Post-Care Text: E.40 [...] By: Bianka Frias RN 01/16/19 15:11 Normal [facility] Operative Report - Surgeon/P sourav [...] years ago from a laparoscopy. Next, an [place] uterine manipulator was advanced into the cervix [...] a subcuticular manner on the skin. The [place] uterine manipulator was then removed from the [...] stable condition. Eliezer Torres DO JOB #: [id number] [Electronically Signed on: 01/21/2019 09:10 EST] Eliezer Torres DO [Verified on: 01/21/2019 09:10 EST] Eliezer Torres DO [Transcribed on: 01/16/2019 10:53 EDT] [facility] Telemetry Stripson 9 Telemetry Strips [id number] .00OTGTIFF [facility] Anesthesia Noteon 01-15-2019 Anesthesia Note Patient: EVELINE PLATT Age: 38 years Sex: FEMALE : 1980 Associated Diagnoses: None Author: Tray Gill MD Preoperative Information Anesthesia history: Patient history: No difficult intubation, No malignant hyperthermia. Family history: No malignant hyperthermia. Review of Systems Respiratory: No shortness of breath, No apnea. Cardiovascular: No known WI, No chest pain. Gastrointestinal: Heartburn. Health Status Allergies: Allergic Reactions (All) No known allergies Current medications: Home Medications (1) Active pantoprazole 40 mg oral delayed release tablet 40 mg = 1 tab(s), PO, BID Problem list (past medical history): All Problems Right ovarian cyst / SNOMED CT 792765634 / Confirmed DDD (degenerative disc disease), lumbosacral / SNOMED CT 627067293 / Confirmed Eye symptom / SNOMED CT 9830049898 / Confirmed GERD (gastroesophageal reflux disease) / SNOMED CT 510583813 / Confirmed Resolved: Chest pain / SNOMED CT 16573763 Resolved: Palpitations / SNOMED CT 245931778 Canceled: DDD (degenerative disc disease), thoracic / SNOMED CT 132441333 Histories Family History: Esophagus Mother Comments: 04/26/2017 16:57 Aicha Wasserman RN esophagus extra long Kidney Brother Comments: 04/26/2017 16:57 Aicha Wasserman RN kidney transplant Thyroid disease Mother Brother Diabetes mellitus type I Father Brain tumor Mother High blood pressure Father Brother Osteoarthritis Mother Coronary heart disease Father Procedure history: Polypectomy of cervix (772365060) on 04/26/2017 at 36 Years. Comments: 01/02/2019 13:19 Haritha Barger RN ovarian cyst. Patient stated laceration under cervix also with repair Dilation and curettage (88280004) on 03/20/2010 at 29 Years. Comments: 04/26/2017 16:00 Aicha Wasserman hemorrhaged 1 hour after procedure was done Dilation and curettage ([id number]). Arthroscopy of knee (510610705). Comments: 01/02/2019 13:00 Haritha Barger RN left [...] U Preg Negative . Laboratory Results Plan [place] Society of Anesthesiologists#( A) physical status classification: Class II. Anesthetic Preoperative Plan Anesthesia: General. . Anesthetic plan, risks, benefits, and alternatives discussed with the patient and/or family. Patient verbalized understanding. Family/Guardian present. Informed consent was given. Consent was signed by the patient. [Electronically Signed on: 01/15/2019 12:03 EDT] Tray Gill MD [Verified on: 01/15/2019 12:03 EDT] Tray Gill MD [facility] Inpatient Patient Summaryon 01-15-2019 [place] [address] Patient Discharge Instructions Name: PLATT EVELINE M : 1980 Patient Address: [address] [place] [address] Primary Care Provider: Name: Kimberly Botello MD After you are discharged if you find you have any questions, please, call [phone] ext [phone] to speak to a nurse. Discharge Diagnosis: Pelvic pain Prescription Information: If you have been given a prescription for narcotics, seek immediate medical attention if you have any difficulty breathing or any sudden status changes such as confusion and sleepiness. If you or anyone you know is experiencing suicidal thoughts, mental health, alcohol and/or drug addiction problems; contact the [facility] 10/10 Crisis Hotline -Text 4HOPE to 715722. If you received any narcotics, sedation, or [...] business decisions or sign any legal documents [facility] would like to thank you for allowing us to assist you with your healthcare needs. The following includes patient education materials and information regarding your injury/illness. EVELINE PLATT has been given the following list of follow-up instructions, prescriptions, and patient education materials: Follow-up Instructions With: Address: When: Eliezer Torres [address] [place] [phone] [facility] (1) In 2 weeks 01/29/2019 With: Address: When: Kimberly Botello [address] [place] [address] [facility] (1) Medications During the course of your visit, your medication list was updated with the most current information. The details of those changes are reflected below: New Medications Printed Prescriptions acetaminophen-hydroco done ([place] 5 mg-325 mg oral tablet) 1 tab(s) [...] you can keep with you. acetaminophen-hydroco done ([place] 5 mg-325 mg oral tablet) 1 tab(s) [...] and abdomen. HOME CARE INSTRUCTIONS ? Take retq-cpw-dixjtew and prescription medicines only as told by [...] and water are not available, use hand slurry man. ? Change your dressings (Band Aids) daily [...] provider. Document Released: 02/15/2016 Document Reviewed: 02/15/2016 [employer] Interactive Patient Education ?2016 [place]. Viruses or Bacteria What?s got you sick? [...] for Disease Control and Prevention [facility] 2013 [facility] Summary Primary Physician: Eliezer Torres DO Finalized Date/Time: 01/15/19 14:27:14 Pt. Name: PLATTEVELINE D.O.B./Sex: 1980 FEMALE Med Rec #: [id number] Physician: Eliezer Torres DO Financial #: [id number] Pt. Type: D Room/Bed: / Admit/Disch: 01/15/19 [...] Signed By: Paty Anne RN 01/15/19 14:27 [facility] Preoperative Record [facility] Pre-Op Record Summary Primary Physician: Eliezer Torres DO Finalized Date/Time: 01/15/19 12:44:26 Pt. Name: EVELINE PLATT/Sex: 1980 FEMALE Med Rec #: [id number] Physician: Eliezer Torres DO Financial #: [id number] Pt. Type: D Room/Bed: / Admit/Disch: 01/15/19 [...] By: Bianka Frias RN 01/15/19 12:44 Normal [facility] Patient Handouton 01-15-2019 Patient Handout [...] and abdomen. HOME CARE INSTRUCTIONS ? Take lktw-rkh-ylajmnt and prescription medicines only as told by [...] and water are not available, use hand slurry man. ? Change your dressings (Band Aids) daily [...] provider. Document Released: 02/15/2016 Document Reviewed: 02/15/2016 [employer] Interactive Patient Education ?2016 [employer] [facility] Test Urine 1on U Preg Negative [facility] Comment on above: Performed By: #### 3 [id number] #### [facility] (DEFAULT) [address] [place] [address]263 U Preg Internal Control Pass [facility] Comment on above: Performed By: #### 3 [id number] #### [facility] (DEFAULT) [address] [place] [address]386 Progress Note - Nurseon 12-19 Progress Note - Nurse Pre op phone call complete. Spoke with patient, confirmed time of arrival for 0900 on 01/14/19 [Electronically Signed on: 01/14/2019 10:13 EDT] Haritha Lee RN [Verified on: 01/14/2019 10:13 EDT] Haritha Lee RN [facility] ABORhon 01-13-2019 ABO and Rh group Nom (Bld) Hx Check: Found Anti-A: 0 Anti-B: 0 Anti-D: 4+ DCon: NT A1: 4+ B: 4+ ABORh Interp: O POS [facility] Comment on above: Performed By: #### 2 [id number], [id number], [id number], [id number] #### [facility] (DEFAULT) [address] [place] [address] ABSC Gelon 01-13-2019 ABSC Gel Negative [facility] Comment on above: Performed By: #### 2 [id number], [id number], [id number], [id number] #### [facility] (DEFAULT) [address] [place] [address] Blood Bank IDon 01-13-2019 Blood Bank ID BBID: [id number] [facility] Comment on above: Performed By: #### 2 [id number], [id number], [id number], [id number] #### [facility] (DEFAULT) [address] [place] [address] Hgbon 01-13-2019 Hemoglobin (Bld) [Mass/Vol] 13.9 g/dL Normal 11.3-15.9 [facility] Comment on above: Performed By: #### 2 [id number], [id number], [id number], [id number] #### [facility] (DEFAULT) [address] [place] [address] Coding Summaryon 01-10-2019 Coding Summary CODING DATE: 01/10/2019 [facility] STATUS: Home 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 ADMIT [...] Bianka Silva Date Saved: 01/10/2019 04:33 pm [facility] Provider Orderson 01-07-2019 Provider Orders [id number] [facility] .Auto Diff 1on 01-02-2019 Auto Pinal % 9 % Normal 1-12 [facility] Comment on above: Performed By: #### 7 [id number], [id number] #### [facility] (DEFAULT) [address] [place] [address] Baso Abs# 0.0 x10 Normal 0.0-0.2 [facility] Comment on above: Performed By: #### 7 [id number], [id number] #### [facility] (DEFAULT) [address] [place] [address] 71085 Basophils/100 WBC (Bld) 0.4 % Normal 0.2-2.0 [facility] Comment on above: Performed By: #### 7 [id number], [id number] #### [facility] (DEFAULT) [address] [place] [address] 30084 Eos Abs# 0.1 x10 Normal 0.0-0.4 [facility] Comment on above: Performed By: #### 7 [id number], [id number] #### [facility] (DEFAULT) [address] [place] [address] 22437 Eosinophils/100 WBC (Bld) 1.7 % Normal 0.9-4.0 [facility] Comment on above: Performed By: #### 7 [id number], [id number] #### [facility] (DEFAULT) [address] [place] [address]80 Lymphocytes (Bld) [#/Vol] 1.4 x10 Normal 1.3-2.9 [facility] Comment on above: Performed By: #### 7 798077, [id number] #### [facility] (DEFAULT) [address] [place] [address] 99758 Lymphocytes/100 WBC (Bld) 26 % Normal 14-48 [facility] Comment on above: Performed By: #### 7 [id number], [id number] #### [facility] (DEFAULT) [address] [place] [address] 30691 Pinal Abs# 0.5 x10 Normal 0.0-0.8 [facility] Comment on above: Performed By: #### 7 [id number], [id number] #### [facility] (DEFAULT) [address] [place] [address] 43347 Neut Abs# 3.3 x10 Normal 1.5-9.2 [facility] Comment on above: Performed By: #### 7 540104, [id number] #### [facility] (DEFAULT) [address] [place] [address] 13608 Neutrophils/100 WBC (Bld) 63 % Normal 44-88 [facility] Comment on above: Performed By: #### 7 736011, [id number] #### [facility] (DEFAULT) [address] [place] [address] CBC w/ Auto Diffon 9 Erythrocyte distribution width (RBC) [Ratio] 12.6 % Normal 11.5-15.0 [facility] Comment on above: Performed By: #### 7 [id number], [id number] #### [facility] (DEFAULT) [address] [place] [address] Hematocrit (Bld) [Volume fraction] 39.8 % Normal 33.7-40.4 [facility] Comment on above: Performed By: #### 7 [id number], [id number] #### [facility] (DEFAULT) [address] [place] [address] Hemoglobin (Bld) [Mass/Vol] 13.2 g/dL Normal 11.3-15.9 [facility] Comment on above: Performed By: #### 7 460277, [id number] #### [facility] (DEFAULT) [address] [place] [address] Man Diff? Auto Normal [facility] Comment on above: Performed By: #### 7 741531, [id number] #### [facility] (DEFAULT) [address] [place] [address] MCH (RBC) [Entitic mass] 31 pg Normal 24-34 [facility] Comment on above: Performed By: #### 7 [id number], [id number] #### [facility] (DEFAULT) [address] [place] [address] MCHC (RBC) [Mass/Vol] 33 g/dL Normal 26-37 [facility] Comment on above: Performed By: #### 7 128324, [id number] #### [facility] (DEFAULT) [address] [place] [address] MCV (RBC) [Entitic vol] 93 fL Normal 81-100 [facility] Comment on above: Performed By: #### 7 [id number], [id number] #### [facility] (DEFAULT) [address] [place] [address] 55856 Platelet mean volume (Bld) [Entitic vol] 11.2 fL High 6.3-10.2 [facility] Comment on above: Performed By: #### 7 987687, [id number] #### [facility] (DEFAULT) [address] [place] [address] 40160 Platelets (Bld) [#/Vol] 242 x10 Normal 138-427 [facility] Comment on above: Performed By: #### 7 [id number], [id number] #### [facility] (DEFAULT) [address] [place] [address] 60397 RBC (Bld) [#/Vol] 4.26 x10 Normal 3.70-5.30 [facility] Comment on above: Performed By: #### 7 421757, [id number] #### [facility] (DEFAULT) [address] [place] [address] WBC (Bld) [#/Vol] 5.2 x10 Normal 3.5-10.5 [facility] Comment on above: Performed By: #### 7 039273, [id number] #### [facility] (DEFAULT) [address] [place] [address] 50165 BASIC METABOLIC PANELon 09-0 Calcium [Mass/Vol] 8.8 mg/dL Normal 8.6-10.3 [facility] Comment on above: Order Comment: No: D o not add to previous draw Performed By: #### 4 6413, 32375 #### [facility] [address] [place] [address], [place] Chloride [Moles/Vol] 108 mmol/L High 98-107 [facility] Comment on above: Order Comment: No: D o not add to previous draw Performed By: #### 4 6413, 21181 #### [facility] [address] [place] [address], [place] CO2 [Moles/Vol] 23 mmol/L Normal 21-31 [facility] Comment on above: Order Comment: No: D o not add to previous draw Performed By: #### 4 6413, 66683 #### [facility] [address] [place] [address], [place] Creatinine [Mass/Vol] 0.59 mg/dL Low 0.60-1.20 [facility] Comment on above: Order Comment: No: D o not add to previous draw Performed By: #### 4 6413, 66380 #### [facility] [address] [place] [address], [place] GFR/1.73 sq M predicted among blacks MDRD (S/P/Bld) [Vol rate/Area] mL/min/{1.73_m2} Normal >60 [facility] Comment on above: Order Comment: No: D o not add to previous draw Performed By: #### 4 64, 52170 #### [facility] [address] [place] [address], [place] GFR/1.73 sq M predicted among non-blacks MDRD (S/P/Bld) [Vol rate/Area] mL/min/{1.73_m2} Normal >60 [facility] Comment on above: Order Comment: No: D o not add to previous draw Performed By: #### 4 9913, 73863 #### [facility] [address] [place] [address], [place] Glucose [Mass/Vol] 272 mg/dL High 70-100 [facility] Comment on above: Order Comment: No: D o not add to previous draw Performed By: #### 4 6413, 61144 #### [facility] [address] [place] [address], [place] Potassium [Moles/Vol] 3.6 mmol/L Normal 3.5-5.1 [facility] Comment on above: Order Comment: No: D o not add to previous draw Performed By: #### 4 64, 89652 #### [facility] [address] [place] [address], [place] Sodium [Moles/Vol] 137 mmol/L Normal 136-145 [facility] Comment on above: Order Comment: No: D o not add to previous draw Performed By: #### 4 6413, 95387 #### [facility] [address] [place] [address], [facility] Urea nitrogen [Mass/Vol] 17 mg/dL Normal 7-25 [facility] Comment on above: Order Comment: No: D o not add to previous draw Performed By: #### 4 64, 38566 #### [facility] [address] [place] [id number], [facility] CBC COMPLETE BLOOD COUNTon 0 11-21-2018 Erythrocyte distribution width (RBC) [Ratio] 13.0 % Normal 11.5-15.0 [facility] Comment on above: Order Comment: No: D o not add to previous draw Performed By: #### 4 6413, 17950 #### [facility] [address] [place] [address], [facility] Hematocrit (Bld) [Volume fraction] 40.2 % Normal 36.0-45.0 [facility] Comment on above: Order Comment: No: D o not add to previous draw Performed By: #### 4 6413, 59417 #### [facility] [address] [place] [address], [facility] Hemoglobin (Bld) [Mass/Vol] 13.1 g/dL Normal 12.0-15.0 [facility] Comment on above: Order Comment: No: D o not add to previous draw Performed By: #### 4 6413, 02997 #### [facility] [address] [place] [id number], [place] MCH (RBC) [Entitic mass] 30.7 pg Normal 27.0-33.0 [facility] Comment on above: Order Comment: No: D o not add to previous draw Performed By: #### 4 6413, 56860 #### [facility] [address] [place] MCHC (RBC) [Mass/Vol] 32.6 g/dL Normal 32.0-35.0 [facility] Comment on above: Order Comment: No: D o not add to previous draw Performed By: #### 4 6413, 77620 #### [facility] [address] [place] [address], [facility] MCV (RBC) [Entitic vol] 94.1 fL Normal 82.0-98.0 [facility] Comment on above: Order Comment: No: D o not add to previous draw Performed By: #### 4 64, 64751 #### [facility] [address] [facility] [place] [address], [facility] Nucleated RBC/100 WBC (Bld) [Ratio] 0 % Normal 0-0 [facility] Comment on above: Order Comment: No: D o not add to previous draw Performed By: #### 4 64, 65195 #### [facility] [address] [place] [address], [facility] PLAT CNT 256 10*3/uL Normal 150-400 [facility] Comment on above: Order Comment: No: D o not add to previous draw Performed By: #### 4 6413, 86062 #### [facility] [address] [facility] [facility] [place] [address], [facility] RBC (Bld) [#/Vol] 4.27 10*6/uL Normal 3.80-5.00 [facility] Comment on above: Order Comment: No: D o not add to previous draw Performed By: #### 4 6413, 30933 #### [facility] [address] [place] [address], [facility] WBC (Bld) [#/Vol] 16.78 10*3/uL High 4.00-10.60 [facility] Comment on above: Order Comment: No: D o not add to previous draw Performed By: #### 4 64, 16585 #### [facility] [address] [place] [address], [facility] BASIC METABOLIC PANELon 09-0 Calcium [Mass/Vol] 9.4 mg/dL Normal 8.6-10.3 [facility] Comment on above: Order Comment: No: D o not add to previous draw Performed By: #### 4 6413, 99975 #### [facility] [address] [place] [address], [place] Chloride [Moles/Vol] 105 mmol/L Normal 98-107 [facility] Comment on above: Order Comment: No: D o not add to previous draw Performed By: #### 4 6413, 86874 #### [facility] [address] [place] [address], [place] CO2 [Moles/Vol] 22 mmol/L Normal 21-31 [facility] Comment on above: Order Comment: No: D o not add to previous draw Performed By: #### 4 6413, 26369 #### [facility] [address] [place] [address], [place] Creatinine [Mass/Vol] 0.51 mg/dL Low 0.60-1.20 [facility] Comment on above: Order Comment: No: D o not add to previous draw Performed By: #### 4 6413, 23680 #### [facility] [address] [place] [address], [place] GFR/1.73 sq M predicted among blacks MDRD (S/P/Bld) [Vol rate/Area] mL/min/{1.73_m2} Normal >60 [facility] Comment on above: Order Comment: No: D o not add to previous draw Performed By: #### 4 6413, 76366 #### [facility] [address] [place] [address], [place] GFR/1.73 sq M predicted among non-blacks MDRD (S/P/Bld) [Vol rate/Area] mL/min/{1.73_m2} Normal >60 [facility] Comment on above: Order Comment: No: D o not add to previous draw Performed By: #### 4 6413, 08072 #### [facility] [address] [place] [address], [place] Glucose [Mass/Vol] 187 mg/dL High 70-100 [facility] Comment on above: Order Comment: No: D o not add to previous draw Performed By: #### 4 64, 89221 #### [facility] [address] [place] [address], [place] Potassium [Moles/Vol] 3.6 mmol/L Normal 3.5-5.1 [facility] Comment on above: Order Comment: No: D o not add to previous draw Performed By: #### 4 64, 58611 #### [facility] [address] [place] [address], [place] Sodium [Moles/Vol] 136 mmol/L Normal 136-145 [facility] Comment on above: Order Comment: No: D o not add to previous draw Performed By: #### 4 6413, 66553 #### [facility] [address] [place] [address], [place] Urea nitrogen [Mass/Vol] 12 mg/dL Normal 7-25 [facility] Comment on above: Order Comment: No: D o not add to previous draw Performed By: #### 4 6413, 43274 #### [facility] [address] [place] [address], [place] CBC COMPLETE BLOOD COUNTon 0 - Erythrocyte distribution width (RBC) [Ratio] 12.7 % Normal 11.5-15.0 [facility] Comment on above: Order Comment: No: D o not add to previous draw Performed By: #### 4 6413, 74516 #### [facility] [address] [place] [address], [place] Hematocrit (Bld) [Volume fraction] 40.8 % Normal 36.0-45.0 [facility] Comment on above: Order Comment: No: D o not add to previous draw Performed By: #### 4 33, 86377 #### [facility] [address] [place] [address], [facility] Hemoglobin (Bld) [Mass/Vol] 13.6 g/dL Normal 12.0-15.0 [facility] Comment on above: Order Comment: No: D o not add to previous draw Performed By: #### 4 89, 77728 #### [facility] [address] [place] [address], [facility] MCH (RBC) [Entitic mass] 30.0 pg Normal 27.0-33.0 [facility] Comment on above: Order Comment: No: D o not add to previous draw Performed By: #### 4 83, 96520 #### [facility] [address] MCHC (RBC) [Mass/Vol] 33.3 g/dL Normal 32.0-35.0 [facility] Comment on above: Order Comment: No: D o not add to previous draw Performed By: #### 4 43, 76612 #### [facility] [address] [place] [address], [facility] MCV (RBC) [Entitic vol] 90.1 fL Normal 82.0-98.0 [facility] Comment on above: Order Comment: No: D o not add to previous draw Performed By: #### 4 79, 21007 #### [facility] [address] [place] [address], [facility] Nucleated RBC/100 WBC (Bld) [Ratio] 0 % Normal 0-0 [facility] Comment on above: Order Comment: No: D o not add to previous draw Performed By: #### 4 46, 34180 #### [facility] [address] [place] [address], [place] PLAT CNT 277 10*3/uL Normal 150-400 [facility] Comment on above: Order Comment: No: D o not add to previous draw Performed By: #### 4 6413, 55137 #### [facility] [address] [place] [address], [place] RBC (Bld) [#/Vol] 4.53 10*6/uL Normal 3.80-5.00 [facility] Comment on above: Order Comment: No: D o not add to previous draw Performed By: #### 4 64, 56722 #### [facility] [address] [place] [address], [place] WBC (Bld) [#/Vol] 18.13 10*3/uL High 4.00-10.60 [facility] Comment on above: Order Comment: No: D o not add to previous draw Performed By: #### 4 6413, 66315 #### [facility] [address] [place] [address], [place] POC GLUCOSE LABon 11-20-2018 Glucose [Mass/Vol] 357 mg/dL High 70-100 [facility] Comment on above: Performed By: #### 4 6413, 79896 #### [facility] [address] [place] [address], [place] Glucose [Mass/Vol] 272 mg/dL High 70-100 [facility] Comment on above: Performed By: #### 4 6413, 31712 #### [facility] [address] [place] [address], [place] Glucose [Mass/Vol] 201 mg/dL High 70-100 [facility] Comment on above: Performed By: #### 4 6413, 08808 #### [facility] [address] [place] [address], [place] Glucose [Mass/Vol] 183 mg/dL High 70-100 [facility] Comment on above: Performed By: #### 4 6413, 33982 #### [facility] [address] [place] [address], [facility] BASIC METABOLIC PANELon 09-0 Calcium [Mass/Vol] 8.7 mg/dL Normal 8.6-10.3 [facility] Comment on above: Order Comment: No: D o not add to previous draw Performed By: #### 5 0608 #### [facility] [address] [place] [address], [place] Chloride [Moles/Vol] 106 mmol/L Normal 98-107 [facility] Comment on above: Order Comment: No: D o not add to previous draw Performed By: #### 5 0608 #### [facility] [address] [place] [address], [place] CO2 [Moles/Vol] 25 mmol/L Normal 21-31 [facility] Comment on above: Order Comment: No: D o not add to previous draw Performed By: #### 5 0608 #### [facility] [address] [place] [address], [place] Creatinine [Mass/Vol] 0.62 mg/dL Normal 0.60-1.20 [facility] Comment on above: Order Comment: No: D o not add to previous draw Performed By: #### 5 0608 #### [facility] [address] [place] [address], [place] GFR/1.73 sq M predicted among blacks MDRD (S/P/Bld) [Vol rate/Area] mL/min/{1.73_m2} Normal >60 [facility] Comment on above: Order Comment: No: D o not add to previous draw Performed By: #### 5 0608 #### [facility] [address] [place] [address], [place] GFR/1.73 sq M predicted among non-blacks MDRD (S/P/Bld) [Vol rate/Area] mL/min/{1.73_m2} Normal >60 [facility] Comment on above: Order Comment: No: D o not add to previous draw Performed By: #### 5 0608 #### [facility] [address] [place] [address], [place] Glucose [Mass/Vol] 126 mg/dL High 70-100 [facility] Comment on above: Order Comment: No: D o not add to previous draw Performed By: #### 5 0608 #### [facility] [address] [place] [address], [place] Potassium [Moles/Vol] 3.7 mmol/L Normal 3.5-5.1 [facility] Comment on above: Order Comment: No: D o not add to previous draw Performed By: #### 5 0608 #### [facility] [address] [place] [address], [place] Sodium [Moles/Vol] 137 mmol/L Normal 136-145 [facility] Comment on above: Order Comment: No: D o not add to previous draw Performed By: #### 5 0608 #### [facility] [address] [place] [address], [place] Urea nitrogen [Mass/Vol] 14 mg/dL Normal 7-25 [facility] Comment on above: Order Comment: No: D o not add to previous draw Performed By: #### 5 0608 #### [facility] [address] [place] [address], [place] CBC COMPLETE BLOOD COUNTon 0 - Erythrocyte distribution width (RBC) [Ratio] 12.7 % Normal 11.5-15.0 [facility] Comment on above: Order Comment: No: D o not add to previous draw Performed By: #### 5 0608 #### [facility] [address] [place] [address], [place] Hematocrit (Bld) [Volume fraction] 40.8 % Normal 36.0-45.0 [facility] Comment on above: Order Comment: No: D o not add to previous draw Performed By: #### 5 0608 #### [facility] [address] [place] [address], [facility] Hemoglobin (Bld) [Mass/Vol] 13.3 g/dL Normal 12.0-15.0 [facility] Comment on above: Order Comment: No: D o not add to previous draw Performed By: #### 5 0608 #### [facility] [address] [place] [id number], [facility] MCH (RBC) [Entitic mass] 30.6 pg Normal 27.0-33.0 [facility] Comment on above: Order Comment: No: D o not add to previous draw Performed By: #### 5 0608 #### [facility] [address] [place] [address], [facility] MCHC (RBC) [Mass/Vol] 32.6 g/dL Normal 32.0-35.0 [facility] Comment on above: Order Comment: No: D o not add to previous draw Performed By: #### 5 0608 #### [facility] [address] [place] [address], [facility] MCV (RBC) [Entitic vol] 93.8 fL Normal 82.0-98.0 [facility] Comment on above: Order Comment: No: D o not add to previous draw Performed By: #### 5 0608 #### [facility] [address] [place] [address], [facility] Nucleated RBC/100 WBC (Bld) [Ratio] 0 % Normal 0-0 [facility] Comment on above: Order Comment: No: D o not add to previous draw Performed By: #### 5 0608 #### [facility] [address] [place] [id number], [facility] PLAT CNT 218 10*3/uL Normal 150-400 [facility] Comment on above: Order Comment: No: D o not add to previous draw Performed By: #### 5 0608 #### [facility] [address] [place] [address], [place] RBC (Bld) [#/Vol] 4.35 10*6/uL Normal 3.80-5.00 [facility] Comment on above: Order Comment: No: D o not add to previous draw Performed By: #### 5 0608 #### [facility] [address] [place] [address], [place] WBC (Bld) [#/Vol] 6.28 10*3/uL Normal 4.00-10.60 [facility] Comment on above: Order Comment: No: D o not add to previous draw Performed By: #### 5 0608 #### [facility] [address] [place] [address], [facility] POC GLUCOSE LABon 11-19-2018 Glucose [Mass/Vol] 236 mg/dL High 70-100 [facility] Comment on above: Performed By: #### 5 0608 #### [facility] [address] [place] [address], [place] Glucose [Mass/Vol] 217 mg/dL High 70-100 [facility] Comment on above: Performed By: #### 5 0608 #### [facility] [address] [place] [address], [place] Glucose [Mass/Vol] 180 mg/dL High 70-100 [facility] Comment on above: Performed By: #### 5 0608 #### [facility] [address] [place] [address], [place] Glucose [Mass/Vol] 110 mg/dL High 70-100 [facility] Comment on above: Performed By: #### 5 0608 #### [facility] [address] [place] [place] [address], [facility] CBC W/DIFFon 11-18-2018 ABS BASOPHILS 0.0 10*3/uL Normal 0.0-0.2 [facility] Comment on above: Order Comment: Unkno wn Performed By: #### 5 0103 #### [facility] [address] [place] [address], [facility] ABS IMM GRANS 0.0 10*3/uL Normal 0.0-0.2 [facility] Comment on above: Order Comment: Unkno wn Performed By: #### 5 0103 #### [facility] [address] [place] [address], [facility] ABS NEUTROPHILS 3.3 10*3/uL Normal 1.6-7.6 [facility] Comment on above: Order Comment: Unkno wn Performed By: #### 5 0103 #### [facility] [address] [facility] [place] [address], [facility] Basophils/100 WBC (Bld) 0.4 % Normal 0.0-1.0 [facility] Comment on above: Order Comment: Unkno wn Performed By: #### 5 0103 #### [facility] [address] [facility] [facility] [place] [address], [facility] Eosinophils (Bld) [#/Vol] 0.1 10*3/uL Normal 0.0-0.5 [facility] Comment on above: Order Comment: Unkno wn Performed By: #### 5 0103 #### [facility] [address] [place] [address], [facility] Eosinophils/100 WBC (Bld) 2.3 % Normal 0.0-6.0 [facility] Comment on above: Order Comment: Unkno wn Performed By: #### 5 0103 #### [facility] [address] [facility] [place] [address], [facility] Erythrocyte distribution width (RBC) [Ratio] 12.8 % Normal 11.5-15.0 [facility] Comment on above: Order Comment: Unkno wn Performed By: #### 5 0103 #### [facility] [address] [place] [address], [facility] Hematocrit (Bld) [Volume fraction] 38.6 % Normal 36.0-45.0 [facility] Comment on above: Order Comment: Unkno wn Performed By: #### 5 0103 #### [facility] [address] [place] [address], [facility] Hemoglobin (Bld) [Mass/Vol] 12.8 g/dL Normal 12.0-15.0 [facility] Comment on above: Order Comment: Unkno wn Performed By: #### 5 102 #### [facility] [address] [place] [address], [facility] IMMATURE GRANS 0.5 % Normal 0.0-1.0 [facility] Comment on above: Order Comment: Unkno wn Performed By: #### 5 102 #### [facility] [address] [place] [place] [address], [facility] Lymphocytes (Bld) [#/Vol] 1.6 10*3/uL Normal 1.2-4.0 [facility] Comment on above: Order Comment: Unkno wn Performed By: #### 5 3 #### [facility] [address] [place] [place] [address], [facility] Lymphocytes/100 WBC (Bld) 28.1 % Normal 20.0-45.0 [facility] Comment on above: Order Comment: Unkno wn Performed By: #### 5 3 #### [facility] [address] [place] [place] [address], [facility] MCH (RBC) [Entitic mass] 30.2 pg Normal 27.0-33.0 [facility] Comment on above: Order Comment: Unkno wn Performed By: #### 5 3 #### [facility] [address] [place] [address], [facility] MCHC (RBC) [Mass/Vol] 33.2 g/dL Normal 32.0-35.0 [facility] Comment on above: Order Comment: Unkno wn Performed By: #### 5 0103 #### [facility] [address] [place] [address], [facility] MCV (RBC) [Entitic vol] 91.0 fL Normal 82.0-98.0 [facility] Comment on above: Order Comment: Unkno wn Performed By: #### 5 0103 #### [facility] [address] [place] [address], [facility] Monocytes (Bld) [#/Vol] 0.5 10*3/uL Normal 0.1-1.0 [facility] Comment on above: Order Comment: Unkno wn Performed By: #### 5 0103 #### [facility] [address] [place] [address], [facility] MONOS 9.0 % Normal 5.0-12.0 [facility] Comment on above: Order Comment: Unkno wn Performed By: #### 5 0103 #### [facility] [address] [place] [address], [facility] Neutrophils/100 WBC (Bld) 59.7 % Normal 40.0-72.0 [facility] Comment on above: Order Comment: Unkno wn Performed By: #### 5 0103 #### [facility] [address] [place] [address], [facility] Nucleated RBC/100 WBC (Bld) [Ratio] 0 % Normal 0-0 [facility] Comment on above: Order Comment: Unkno wn Performed By: #### 5 3 #### [facility] [address] [place] [address], [place] PLAT CNT 211 10*3/uL Normal 150-400 [facility] Comment on above: Order Comment: Unkno wn Performed By: #### 5 0103 #### [facility] [address] [place] [address], [facility] RBC (Bld) [#/Vol] 4.24 10*6/uL Normal 3.80-5.00 [facility] Comment on above: Order Comment: Unkno wn Performed By: #### 5 0103 #### [facility] [address] [place] [address], [facility] WBC (Bld) [#/Vol] 5.55 10*3/uL Normal 4.00-10.60 [facility] Comment on above: Order Comment: Unkno wn Performed By: #### 5 0103 #### [facility] [address] COMP METABOLIC PANELon 11-18 Albumin [Mass/Vol] 3.7 g/dL Normal 3.5-5.7 [facility] Comment on above: Order Comment: Unkno wn Performed By: #### 0 0121 #### [facility] [address] [facility] [address] ALKALINE PHOSPH 64 IU/L Normal 34-104 [facility] Comment on above: Order Comment: Unkno wn Performed By: #### 0 0121 #### [facility] [address] ALT [Catalytic activity/Vol] 22 U/L Normal 7-52 [facility] Comment on above: Order Comment: Unkno wn Performed By: #### 0 0121 #### [facility] [address] AST [Catalytic activity/Vol] 20 U/L Normal 13-39 [facility] Comment on above: Order Comment: Unkno wn Performed By: #### 0 0121 #### [facility] [address] [place] [address], [facility] Bilirubin [Mass/Vol] 0.3 mg/dL Normal 0.3-1.0 [facility] Comment on above: Order Comment: Unkno wn Performed By: #### 0 0121 #### [facility] [address] [place] [address], [place] Calcium [Mass/Vol] 8.3 mg/dL Low 8.6-10.3 [facility] Comment on above: Order Comment: Unkno wn Performed By: #### 0 0121 #### [facility] [address] [place] [address], [place] Chloride [Moles/Vol] 107 mmol/L Normal 98-107 [facility] Comment on above: Order Comment: Unkno wn Performed By: #### 0 0121 #### [facility] [address] [place] [address], [place] CO2 [Moles/Vol] 22 mmol/L Normal 21-31 [facility] Comment on above: Order Comment: Unkno wn Performed By: #### 0 0121 #### [facility] [address] [place] [address], [place] Creatinine [Mass/Vol] 0.60 mg/dL Normal 0.60-1.20 [facility] Comment on above: Order Comment: Unkno wn Performed By: #### 0 0121 #### [facility] [address] [place] [address], [place] GFR/1.73 sq M predicted among blacks MDRD (S/P/Bld) [Vol rate/Area] mL/min/{1.73_m2} Normal >60 [facility] Comment on above: Order Comment: Unkno wn Performed By: #### 0 0121 #### [facility] [address] [place] [address], [place] GFR/1.73 sq M predicted among non-blacks MDRD (S/P/Bld) [Vol rate/Area] mL/min/{1.73_m2} Normal >60 [facility] Comment on above: Order Comment: Unkno wn Performed By: #### 0 0121 #### [facility] [address] [place] [address], [facility] Glucose [Mass/Vol] 126 mg/dL High 70-100 [facility] Comment on above: Order Comment: Unkno wn Performed By: #### 0 0121 #### [facility] [address] [place] [address], [facility] Potassium [Moles/Vol] 3.7 mmol/L Normal 3.5-5.1 [facility] Comment on above: Order Comment: Unkno wn Performed By: #### 0 0121 #### [facility] [address] [place] [address], [facility] Protein [Mass/Vol] 6.6 g/dL Normal 6.0-8.3 [facility] Comment on above: Order Comment: Unkno wn Performed By: #### 0 0121 #### [facility] [address] [place] [address], [facility] Sodium [Moles/Vol] 135 mmol/L Low 136-145 [facility] Comment on above: Order Comment: Unkno wn Performed By: #### 0 0121 #### [facility] [address] [place] [address], [facility] Urea nitrogen [Mass/Vol] 10 mg/dL Normal 7-25 [facility] Comment on above: Order Comment: Unkno wn Performed By: #### 0 0121 #### [facility] [address] [place] [address], [place] HEMOGLOBIN A1Con 11-18-2018 HbA1c (Bld) [Mass fraction] 103 mg/dL Normal 70-126 [facility] Comment on above: Order Comment: No: D o not add to previous draw Performed By: #### 4 4984, 26737 #### [facility] [address] [place], [place] [id number] [place] [address] HbA1c (Bld) [Mass fraction] 5.2 % Normal 4.0-6.0 [facility] Comment on above: Order Comment: No: D o not add to previous draw Performed By: #### 4 6413, 61405 #### [facility] [address] [place], [place] [id number] [place] [address] MRI FACE ORBIT NECK W WO CON TRASTon 11-18-2018 MRI FACE ORBIT NECK W WO CONTRAST [facility] Department of Radiology [address] [place] [id number] Patient Name: EVELINE PLATT : 1980 Sex: F Age: Race: White Pt. Location: [id number] Patient Status: I Ordered Date: 11/18/2018 1:50:00 [...] findings. Electronically signed by:Lisbeth Guzman. Transcribed by: [email or web address], User Resident: MELISSA BLANKENSHIP Electronically Signed by: LISBETH GUZMAN @ 11/19/2018 08:37 AM I personally read this/these film(s) with this resident Normal [facility] Comment on above: Order Comment: No: D o not add to previous draw POC GLUCOSE LABon 11-18-2018 Glucose [Mass/Vol] 150 mg/dL High 70-100 [facility] Comment on above: Performed By: #### 5 0608 #### [facility] [address] [place] [address], [place] Glucose [Mass/Vol] 103 mg/dL High 70-100 [facility] Comment on above: Performed By: #### 8 5499 #### [facility] [address] [place] [address], [place] BASIC METABOLIC PANELon 08-3 Calcium [Mass/Vol] 8.8 mg/dL Normal 8.6-10.3 [facility] Comment on above: Order Comment: No: D o not add to previous draw Performed By: #### 4 6413, 22004 #### [facility] [address] [place] [address], [place] Chloride [Moles/Vol] 105 mmol/L Normal 98-107 [facility] Comment on above: Order Comment: No: D o not add to previous draw Performed By: #### 4 64, 17409 #### [facility] [address] [place] [address], [place] CO2 [Moles/Vol] 26 mmol/L Normal 21-31 [facility] Comment on above: Order Comment: No: D o not add to previous draw Performed By: #### 4 64, 08886 #### [facility] [address] [place] [address], [place] Creatinine [Mass/Vol] 0.71 mg/dL Normal 0.60-1.20 [facility] Comment on above: Order Comment: No: D o not add to previous draw Performed By: #### 4 6413, 19887 #### [facility] [address] [place] [address], [place] GFR/1.73 sq M predicted among blacks MDRD (S/P/Bld) [Vol rate/Area] mL/min/{1.73_m2} Normal >60 [facility] Comment on above: Order Comment: No: D o not add to previous draw Performed By: #### 4 6413, 72628 #### [facility] [address] [place] [address], [place] GFR/1.73 sq M predicted among non-blacks MDRD (S/P/Bld) [Vol rate/Area] mL/min/{1.73_m2} Normal >60 [facility] Comment on above: Order Comment: No: D o not add to previous draw Performed By: #### 4 64, 68564 #### [facility] [address] [place] [address], [place] Glucose [Mass/Vol] 90 mg/dL Normal 70-100 [facility] Comment on above: Order Comment: No: D o not add to previous draw Performed By: #### 4 64, 29087 #### [facility] [address] [place] [address], [place] Potassium [Moles/Vol] 3.6 mmol/L Normal 3.5-5.1 [facility] Comment on above: Order Comment: No: D o not add to previous draw Performed By: #### 4 64, 20145 #### [facility] [address] [place] [address], [place] Sodium [Moles/Vol] 138 mmol/L Normal 136-145 [facility] Comment on above: Order Comment: No: D o not add to previous draw Performed By: #### 4 6413, 63413 #### [facility] [address] [place] [address], [place] Urea nitrogen [Mass/Vol] 10 mg/dL Normal 7-25 [facility] Comment on above: Order Comment: No: D o not add to previous draw Performed By: #### 4 6413, 95420 #### [facility] [address] [place] [id number], [facility] CBC COMPLETE BLOOD COUNTon - Erythrocyte distribution width (RBC) [Ratio] 12.8 % Normal 11.5-15.0 [facility] Comment on above: Order Comment: No: D o not add to previous draw Performed By: #### 5 0608 #### [facility] [address] [place] [address], [place] Hematocrit (Bld) [Volume fraction] 40.1 % Normal 36.0-45.0 [facility] Comment on above: Order Comment: No: D o not add to previous draw Performed By: #### 5 0608 #### [facility] [address] [place] [address], [facility] Hemoglobin (Bld) [Mass/Vol] 13.1 g/dL Normal 12.0-15.0 [facility] Comment on above: Order Comment: No: D o not add to previous draw Performed By: #### 5 0608 #### [facility] [address] [place] [address], [facility] MCH (RBC) [Entitic mass] 30.5 pg Normal 27.0-33.0 [facility] Comment on above: Order Comment: No: D o not add to previous draw Performed By: #### 5 0608 #### [facility] [address] [facility] [place] [address], [facility] MCHC (RBC) [Mass/Vol] 32.7 g/dL Normal 32.0-35.0 [facility] Comment on above: Order Comment: No: D o not add to previous draw Performed By: #### 5 0608 #### [facility] [address] [facility] [place] [address], [facility] MCV (RBC) [Entitic vol] 93.3 fL Normal 82.0-98.0 [facility] Comment on above: Order Comment: No: D o not add to previous draw Performed By: #### 5 0608 #### [facility] [address] [facility] [address] Nucleated RBC/100 WBC (Bld) [Ratio] 0 % Normal 0-0 [facility] Comment on above: Order Comment: No: D o not add to previous draw Performed By: #### 5 0608 #### [facility] [address] [place] [address], [facility] PLAT CNT 225 10*3/uL Normal 150-400 [facility] Comment on above: Order Comment: No: D o not add to previous draw Performed By: #### 5 0608 #### [address] [address], [facility] RBC (Bld) [#/Vol] 4.30 10*6/uL Normal 3.80-5.00 [facility] Comment on above: Order Comment: No: D o not add to previous draw Performed By: #### 5 0608 #### [address] [address], [facility] WBC (Bld) [#/Vol] 5.88 10*3/uL Normal 4.00-10.60 [facility] Comment on above: Order Comment: No: D o not add to previous draw Performed By: #### 5 0608 #### [address] [address], [facility] CTA HEADon 11-17-2018 CTA HEAD [facility] Department of Radiology [address] [place] [phone] Patient Name: EVELINE PLATT : 1980 Sex: F Age: Race: White Pt. Location: [id number] Patient Status: I Ordered Date: 11/17/2018 11:30:00 [...] findings. Electronically signed by:Brendan Mario. Transcribed by: [email or web address], User Resident: WHITNEY GLEASON Electronically Signed by: BRENDAN MARIO @ 11/18/2018 07:23 PM I personally read this/these film(s) with this resident Normal [facility] Comment on above: Order Comment: No: D o not add to previous draw CTA NECKon 11-17-2018 CTA NECK [facility] Department of Radiology [address] [place] [phone] Patient Name: EVELINE PLATT : 1980 Sex: F Age: Race: White Pt. Location: [id number] Patient Status: I Ordered Date: 11/17/2018 11:30:00 [...] findings. Electronically signed by:Brendan Mario. Transcribed by: [email or web address], User Resident: WHITNEY GLEASON Electronically Signed by: BRENDAN MARIO @ 11/18/2018 07:23 PM I personally read this/these film(s) with this resident Normal [facility] History and Physicalon 11-17 History and Physical MR#: [id number] [facility] Pt. Name: Eveline Platt Admitted: 11/17/2018 Date of : 1980 Attending Physician: Jennifer Kincaid MD Room #: [id number] Discharge Date: HISTORY AND PHYSICAL CHIEF COMPLAINT: [...] Kincaid MD Date Trans: 11/17/2018 05:13 [place]/jp [id number] Normal [facility] LIPID PROFILEon 11-17-2018 Cholesterol [Mass/Vol] 133 mg/dL Normal 120-200 [facility] Comment on above: Order Comment: No: D o not add to previous draw Result Comment: CHOL ESTEROL REFERENCE RANGE: 20 YEARS AND OLDER CARDIOVASCULAR RISK Less than 200 mg/dl Low Risk 200 to 239 mg/dl Borderline Risk 240 mg/dl and greater High Risk Performed By: #### 4 6413, 81525 #### [facility] [address] [place] [address], [place] Cholesterol in HDL [Mass/Vol] 39 mg/dL Normal 23-92 [facility] Comment on above: Order Comment: No: D o not add to previous draw Result Comment: Slig ht variation in normal range could be due to gender and/or age. HDL CHOLESTEROL REFERENCE RANGE: 20 years and older Cardiovascular Risk > or =60 mg/dL Desirable 40 TO 59 mg/dL Low Risk <40 mg/dL High Risk Performed By: #### 4 6413, 26266 #### [facility] [address] [place] [address], [facility] Cholesterol in LDL [Mass/Vol] 52 mg/dL Normal 0-130 [facility] Comment on above: Order Comment: No: D o not add to previous draw Result Comment: LDL IS A CALCULATION LDL IS ONLY VALID IF THE TRIG IS LESS THAN 400. Performed By: #### 4 6413, 46295 #### [facility] [address] [place] [address], [facility] Cholesterol.total/Ch olesterol in HDL [Mass ratio] 3.4 {ratio} Normal 0.0-4.5 [facility] Comment on above: Order Comment: No: D o not add to previous draw Performed By: #### 4 6413, 82880 #### [facility] [address] [place] [address], [place] NON-HDL CHOLESTEROL 94 mg/dL Normal [facility] Comment on above: Order Comment: No: D o not add to previous draw Performed By: #### 4 6413, 89242 #### [facility] [address] [place] [address], [place] Triglyceride [Mass/Vol] 208 mg/dL High 40-149 [facility] Comment on above: Order Comment: No: D o not add to previous draw Result Comment: TRIG LYCERIDE REFERENCE RANGE: 20 YEARS AND OLDER CARDIOVASCULAR RISK LESS THAN 150 mg/dl LOW RISK 150 TO 199 mg/dl BORDERLINE RISK 200 mg/dl AND GREATER HIGH RISK Performed By: #### 4 [id number], [id number] #### [facility] [address] [facility] [place], [place] [id number] [place] [address] VLDL CHOL 42 mg/dL High 0-40 [facility] Comment on above: Order Comment: No: D o not add to previous draw Performed By: #### 4 6413, 65657 #### [facility] [address] [facility] [place], [place] [id number] [place] [address] MRI BRAIN W WO CONTRASTon MRI BRAIN W WO CONTRAST [facility] Department of Radiology [address] [place] [id number] Patient Name: EVELINE PLATT : 1980 Sex: F Age: Race: White Pt. Location: [id number] Patient Status: I Ordered Date: 11/17/2018 2:50:00 [...] findings. Electronically signed by:Brendan Mario. Transcribed by: [email or web address], User Resident: WHITNEY GLEASON Electronically Signed by: BRENDAN MARIO @ 11/18/2018 07:22 PM I personally read this/these film(s) with this resident Normal [facility] Comment on above: Order Comment: R/O C VA SEDIMENTATION RATEon 019 SED RATE 13 mm/hr Normal 0-20 [facility] Comment on above: Order Comment: No: D o not add to previous draw Performed By: #### 5 [id number] #### [facility] [address] [place] [address], [facility] TOX PANEL URINEon 11-17-2018 50 THC Negative Normal NEGATIVE [facility] Comment on above: Order Comment: No: D o not add to previous draw Performed By: #### 3 1079 #### [facility] [address] [place] [address], [facility] BARBITURATES Negative Normal NEGATIVE The [facility] Comment on above: Order Comment: No: D o not add to previous draw Performed By: #### 3 1079 #### [facility] [address] [place] [address], [place] Benzodiazepines Ql (U) Negative Normal NEGATIVE [facility] Comment on above: Order Comment: No: D o not add to previous draw Performed By: #### 3 1079 #### [facility] [address] [place] [address], [place] Cocaine Ql (U) Negative Normal NEGATIVE The [facility] Comment on above: Order Comment: No: D o not add to previous draw Performed By: #### 3 1079 #### [facility] [address] [place] [address], [facility] Methadone Ql (U) Negative Normal NEGATIVE The [facility] Comment on above: Order Comment: No: D o not add to previous draw Performed By: #### 3 1079 #### [facility] [address] [place] [address], [facility] MONO AMPHET Negative Normal NEGATIVE The [facility] Comment on above: Order Comment: No: D o not add to previous draw Performed By: #### 3 1079 #### [facility] [address] [place] [address], [facility] Opiates Ql (U) Negative Normal NEGATIVE The [facility] Comment on above: Order Comment: No: D o not add to previous draw Performed By: #### 3 1079 #### [facility] [address] [place] [address], [facility] Phencyclidine Ql (U) Negative Normal NEGATIVE [facility] Comment on above: Order Comment: No: D o not add to previous draw Performed By: #### 3 1079 #### [facility] [address] [place] [address], [place] PROPOXYPHENE Negative Normal NEGATIVE The [facility] Comment on above: Order Comment: No: D o not add to previous draw Performed By: #### 3 1079 #### [facility] [address] [place] [address], [facility] TRICYCLICS Negative Normal NEGATIVE [facility] Comment on above: Order Comment: No: D o not add to previous draw Performed By: #### 3 1079 #### [facility] [address] [place] [address], [facility] Vital Signs Date Time Vital Sign Value Performing Clinician Faci lity 04-29-2024 15:27-0500 Body height 154.94 cm [facility] 04-29-2024 15:27-0500 Body mass index (BMI) [Ratio] 40.4 kg/m2 [facility] 04-29-2024 15:27-0500 Body weight 97.06 kg [facility] 04-29-2024 15:27-0500 Diastolic blood pressure 96 mm[Hg] [facility] 04-29-2024 15:27-0500 Heart rate 72 /min [facility] 04-29-2024 15:27-0500 Systolic blood pressure 148 mm[Hg] [facility] 12-11-2023 15:49-0400 Body height 154.94 cm [facility] 12-11-2023 15:49-0400 Body mass index (BMI) [Ratio] 39.1 kg/m2 [facility] 12-11-2023 15:49-0400 Body weight 93.89 kg [facility] 12-11-2023 15:49-0400 Diastolic blood pressure 89 mm[Hg] [facility] 12-11-2023 15:49-0400 Heart rate 67 /min [facility] 12-11-2023 15:49-0400 Systolic blood pressure 146 mm[Hg] [facility] Encounters Encounter Date Encounter Type Care Provider Facility Start: 04-29-2024 End: 04-29-2024 ambulatory [facility] Work Phone: Start: 04-29-2024 End: 04-29-2024 Patient encounter procedure [facility] Physician [facility] Work Phone: Start: 02-12-2024 Non-patient / Non-visit [facility] Work Phone: Start: 12-11-2023 Patient encounter status [facility] Start: 12-11-2023 End: 12-11-2023 ambulatory [facility] Work Phone: Start: 12-11-2023 End: 12-11-2023 Encounter for general adult medical examination without abnormal findings [facility] Start: 12-11-2023 End: 12-11-2023 Patient encounter procedure [facility] Physician [facility] Work Phone: Start: 02-07-2023 End: 02-07-2023 ambulatory Kimberly Botello Other [facility] Other Start: 02-07-2023 Telephone encounter Kimberly Botello [facility] Start: 01-23-2023 (Televisit) Televisit Kimberly Botello [facility] Start: 01-23-2023 End: 01-23-2023 ambulatory Kimberly Botello Other [facility] Other Start: 05-10-2022 End: 05-10-[address] MELLISSA BAILEY . Facility:[facility] Start: 05-21-2021 End: 05-22-[address] KIMBERLY BOTELLO Facility:[facility] Start: 03-25-2021 Adult health examination Kimberly Botello Other [facility] Other Start: 03-25-2021 Problem, abnormal examination Kimberly Botello Other [facility] Other Start: 05-07-2020 End: 05-07-2020 Patient encounter procedure External Provider [facility] Start: 05-07-2020 Results Only External Provider [facility] Start: 11-17-2018 End: 11-21-2018 Evaluation and management of inpatient CRISTINA PAT Facility:[facility] Procedures Date Procedure Procedure Detail Performing Clinician Start: 05-07-2020 End: 05-07-2020 EXTERNAL LAB External Provider Screening for malign ant neoplasm of breast Kimberly Botello Other Plan of Treatment Date Care Activity Detail Author Start: 04-29-[address] [facility] Work Phone: Patient Education Back Flexion Strengthening Exercises [facility] Work Phone: Patient referral [facility] Work Phone: XR Lumbar spine 2 or 3 Views [facility] Immunizations Immunization Date Immunization Notes Care Provider Fa cility 01-10-2018 influenza virus vaccine, split virus (incl. purified surface antigen) Kimberly Botello Other [facility] Other 01-10-2018 influenza virus vaccine, unspecified formulation [facility] Payers Date Payer Category Payer Unknown MMO MMO [employer] [id number] 2020-Present PPO [id number] 1980 Unknown [id number] 1980 Unknown [id number] 1980 Unknown [id number] 1961 Unknown [id number] Private Health Insurance [employer] [id number] Private Health Insurance [facility] [id number] Self-pay Self Pay [id number] Social History Date Type Detail Facility Tobacco smoking status NHIS Unknown if ever smoked [facility] Start: 1980 Sex Assigned At Not on file [facility] Sex Assigned At Sex Assigned At [facility] Other Start: 05-30-2023 End: 05-30-2023 Tobacco smoking status NHIS Never smoked tobacco (finding) [facility] Start: 1980 Sex Assigned At Female [facility] Start: 04-29-2024 Sex Female (finding) [facility] NEGATED: Highlighted row [facility] Clinical Notes 05-13-2020 to 01-23-2023 Note Date [...] diseases classified elsewhere (ICD-10 - B96.89) [facility] Other 05-03-2021 NoteHNO ID: [id number] Author: Cat Fofana RD Service: ? Author Type: Registered Dietitian Type: Progress Notes Filed: 07/20/2020 12:50 PM Note Text: 12:01- Called pt at this time for scheduled phone appointment. No answer, left message for patient with provider contact information. Cat Fofana RDN, [facility]05-03-2021 NoteEducation (NUTRSA) EVELINE PLATT ([id number]) 1980 F Date Time Provider Department 07/20/20 [...] * Encounter Status:Closed by CAT FOFANA on 07/20/20[facility]04-12-2021 NoteEducation (NUTRSA) EVELINE PLATT ([id number]) 1980 F Date Time Provider Department 06/29/20 [...] 4 course- meat/pot/corn/non-starchy vegetable Snack(s): evening snacker- 7-190p something sweet Fluids: 3-24 oz water during the day. At home 48oz water. Nutrition Diagnosis: Problem, Etiology and Signs/Symptoms: Overweight/Obesity related to excessive energy intake as evidenced by BMI 39.2. Nutrition Intervention: -aim for 3 meals + snack if needed -use Polimax plate for dinner -ok to use meal replacement for lunch -ok to have snack of 1 CHO + Pro for breakfast -continue drinking at least 64 oz non-caffeine containing beverages -begin label reading -ok to use gama such as Aegis or [employer] to take caloric intake if desired -call [...] Estimated kilocalorie needs: 1854 kilocalories determined by [place] x 1.2 Estimated protein needs: 75-94 [...] nutrition counseling for obesity. 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 Author Type: [...] reading -ok to use gama such as Aegis or [employer] to take caloric intake if desired -call [...] Per HPI: Updated Visit, June 24, 2020: vEeline is 39 years old and returns in [...] Estimated kilocalorie needs: 1854 kilocalories determined by [place] Je[place] x 1.2 Estimated protein needs: 75-94 [...] nutrition counseling for obesity. 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 [facility]04-07-2021 NoteHNO ID: [id number] Author: Blake Patel Service: ? Author Type: Physician Type: Progress Notes Filed: 06/25/2020 6:20 AM Note Text: NAME: Eveline Platt CLINIC NO.: [id number] DATE OF SERVICE: June 24, 2020 Some [...] also endorses heavy menses. 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 Per HPI and [...] 25 Protein, Total (g/ (more content not included)...[facility] 05-13-2020 NoteHNO ID: [id number] Author: Blake Patel Service: ? Author Type: Physician Type: Progress Notes Filed: 05/13/2020 12:21 PM Note Text: NAME: Eveline Platt [facility] NO.: [id number] DATE OF SERVICE: May 13, 2020 Referring [...] also endorses heavy menses. 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 Per HPI and [...] CBC + DIFF (FOR REMOTE [facility] USE), COMP METABOLIC PANEL, FERRITIN BLD, [...] Brain tumor Blake Patel MD, CPE [facility] [place], [place] CC: Kimberly Botello MD ([facility]) [address] [facility] [address]Qbt[facility]cjx[facility] noteNo Information Prot-On [facility] 10[facility] Other Evaluation note* Diagnosis Onset Date Resolution Status DDD (degenerative disc disease), lumbar acute SI joint arthritis acute Wellness examination acute [facility] Work Phone: Evaluation note* Diagnosis Onset Date Resolution Status Admit Date Colon cancer screening acute Fe bruary 2024 3:26pm Gastro-esophageal reflux disease without esophagitis acute Febr uary 2024 3:26pm [facility] Work Phone: History general Narrative - Reported* Type Description Date Medical History DDD LUMBAR ARTHRITIS Medical History GERD Medical History BOWEL ADHESIONS Medical History UTERINE AND VAGINAL POLYPS Medical History hypertension Surgical History D&C Surgical History CERVICAL AND UTERINE POLYPS Surgical History OVARIAN CYST/BOWELS RELEASED FO R UTERUS Surgical History oophorectomy Surgical History knee surgery Hospitalization History see above [facility] Other Hospital Discharge instructionsAmbulatory Orders* Referral to Gastroenterology Location: None Selected [facility] Work Phone: Summary Purpose Family History Relationship Condition Age at Onset Recorded Date/T laurita father Hypertension Unknown Diabetes mellitus Unknown Advance Directives Advance Directive Response Recorded Date/ Time Advance Directives No August 25 0 9:06am Advance Directive Response Recorded Date/ Time Advance Directives No August 25 0 8:06am Hospital Course Note MR#: [id number] [facility] Pt. Name: Eveline Platt Admitted: 11/17/2018 [...] a pleasant 38-year-old female, who presented to [facility] on account of left acute visual loss and the patient was brought to the [facility] for further evaluation and management. Has had an extensive evaluation done including ESR, which is normal along (more content not included)... Note [facility] SURGERY Clinical Discharge Summary PERSON INFORMATION Name EVELINE PLATT Age 38 Years 1980 Sex FEMALE Language German PCP Rosmery ALVA, Kimberly Peñaloza Marital Status etaskr Service Ambulatory Surgery Acct# Arrival 01/15/2019 08:48:00 Visit Reason SURGERY-RIGHT SALPINGO-OOPHORECTOMY AND DIAGNOSTIC LAPAROSCOPY Acuity LOS 043 00:30 Address: [address] [place] [address] Comment: PROVIDER INFORMATION VITALS INFORMATION Vital Sign Triage Latest Temp Oral Temp Temporal Temp Intravascular Temp Axillary Temp Rectal 02 Sat 100 % 100 % Respiratory Rate Peripheral Pulse Rate Apical Heart Rate Blood Pressure / 93 mmHg / 81 mmHg Comment: MEDICAL INFORMATION Allergy Info: No known allergies Prescriptions Given: acetaminophen-hydrocodone ([place] 5 mg-325 mg oral tablet) 1 tab(s) [...] section and content) DATE CREATED AUTHOR 12/10/2018 [facility] DATE CREATED AUTHOR AUTHOR'S ORGANIZ ATION 01/22/2019 [place] DATE CREATED AUTHOR AUTHOR'S ORGANIZ ATION 04/16/2021 [facility] DATE CREATED AUTHOR AUTHOR'S ORGANIZ ATION 05/13/2022 [facility] Comments (unrecognize d section and content) In the event this informatio n is protected by the Federal Confidentiality of Alcohol and Drug Abuse Patient Records regulations: The Federal rules restrict any use of the information to criminally investigate or prosecute any alcohol or drug abuse patient.[facility] the event this information is protected by the Federal Confidentiality of Alcohol and Drug Abuse Patient Records regulations: The Federal rules restrict any use of the information to criminally investigate or prosecute any alcohol or drug abuse patient.[facility] the event this information is protected by the Federal Confidentiality of Alcohol and Drug Abuse Patient Records regulations: The Federal rules restrict any use of the information to criminally investigate or prosecute any alcohol or drug abuse patient.[facility] the event this information is protected by the Federal Confidentiality of Alcohol and Drug Abuse Patient Records regulations: The Federal rules restrict any use of the information to criminally investigate or prosecute any alcohol or drug abuse patient.[facility] REASON FOR VISIT (unrecogniz ed section and content) Cough- [phone] Care Teams (unrecognized sec tion and content) [...] BE BASED ON THE PRIMARY CLINICAL RECORDS. [facility]. provides no warranty or guarantee of the accuracy or completeness of information in this document.
--- NOTE | 2024-07-06 22:48 | ED_ITS ---
HPI - Abdominal Pain General Chief Complaint: Abdominal Pain Stated Complaint: side sided pain Time Seen by Provider: 07/06/24 22:45 Source: patient Mode of arrival: walk-in Limitations: no limitations History of Present Illness HPI narrative: presents complaining of diarrhea past 3 days. Able to drink fluids. Diarrhea slowing down some but now has right CVA pain . Feels urine is dark. No hematuria. No blood in diarrhea. No fever or light headiness Related Data Home Medications ?Medication ?Instructions ?Recorded ?Confirmed dexlansoprazole 60 mg 60 mg PO QDAY 12/03/22 07/06/24 capsule,biphase delayed release metoprolol succinate 50 mg 50 mg PO QDAY 12/03/22 07/06/24 tablet,extended release 24 hr Allergies Allergy/AdvReac Type Severity Reaction Status Date / Time No Known Drug Allergies Allergy Verified 07/06/24 22:42 Review of Systems ROS Status of ROS 10 or more systems reviewed and unremark able except as noted in history and below PFSH PFSH Social History Smoking status: Current every day smoker Little interest or pleasure in doing things: not at all Feeling down, depressed, or hopeless: not at all Exam Constitutional Vital Signs, click to edit/add: Last Vital Signs Temp 98.2 F 07/06/24 22:37 Pulse 98 H 07/06/24 22:37 Resp 18 07/06/24 22:37 BP 148/100 H 07/06/24 22:58 Pulse Ox 99 07/06/24 22:37 O2 Del Method Room Air 07/06/24 22:37 Common normals: no apparent distress, average body habitus, oriented x3, no limitations, healthy appearing, alert and well nourished [facility] Common normals: normocephalic and head/scalp atraumatic Eye Common normals: EOMs intact bilaterally and conjunctivae normal Respiratory Common normals: normal respiratory effort, no retractions, no use of accessory muscles and clear to auscultation bilaterally Cardio Common normals: regular rate, regular rhythm, S1 normal heart sound and S2 normal heart sound GI Common normals: Normal to inspection, nondistended, normoactive bowel sounds present, soft to palpation and non-tender Back & Pelvis General back: CVA tenderness CVA tenderness: right Neuro Common normals: oriented x3, CN's II-XII intact bilaterally, moves all extremities and no focal motor deficits Psych Appearance: grossly normal Course Vital Signs Vital signs: Vital Signs Temperature 98.2 F 07/06/24 22:37 Pulse Rate 98 H 07/06/24 22:37 Respiratory Rate 18 07/06/24 22:37 Blood Pressure 160/100 H 07/06/24 22:37 Pulse Oximetry 99 07/06/24 22:37 Oxygen Delivery Method Room Air 07/06/24 22:37 Temperature 98.2 F 07/06/24 22:37 Pulse Rate 98 H 07/06/24 22:37 Respiratory Rate 18 07/06/24 22:37 Blood Pressure 148/100 H 07/06/24 22:58 Pulse Oximetry 99 07/06/24 22:37 Oxygen Delivery Method Room Air 07/06/24 22:37 MDM - Abdominal Pain MDM Narrative Medical decision making narrative: patient presents with 3 days of diarrhea that is now slowing down but was experiencing right sided pain and decided to come in for evaluation. Exam with mild abdominal tenderness . no guarding. CT with findings of enteritis and adenitis. UA without infection. Few RBCs. Patient informed of working diagnosis. CBC, BMP WNL. discharged to follow up with her doctor Lab Data Labs: Lab Results 07/06/24 07/06/24 Range/Units 22:42 22:54 WBC 7.0 (4.0-11.0) 10^3/uL RBC 4.51 (4.20-5.40) 10^6/uL Hgb 14.1 (12.0-16.0) g/dL Hct 42.6 (36.0-48.0) % MCV 94.5 (81.0-99.0) fL MCH 31.3 (26.7-34.0) pg MCHC 33.1 (29.9-35.2) g/dL RDW 11.7 (11.0-15.0) % Plt Count 229 (150-450) 10^3/uL MPV 11.6 (9.5-13.5) fL Neut % (Auto) 68.5 (43.0-75.0) % Lymph % (Auto) 15.3 L (20.5-60.0) % [place] % (Auto) 12.9 H (1.7-12.0) % Eos % (Auto) 2.0 (0.9-7.0) % Baso % (Auto) 0.3 (0.2-2.0) % Neut # (Auto) 4.8 (1.4-6.5) 10^3/uL Lymph # (Auto) 1.1 L (1.2-3.8) 10^3/uL [place] # (Auto) 0.9 H (0.3-0.8) 10^3/uL Eos # (Auto) 0.1 (0.0-0.7) 10^3/uL Baso # (Auto) 0.0 (0.0-0.1) 10^3/uL Abs Immat Gran (auto) 0.07 H (0.00-0.03) 10^3/uL Imm/Tot Granulo (auto) 1.0 H (0.0-0.5) % Sodium 140 (136-145) mmol/L Potassium 3.6 (3.5-5.1) mmol/L Chloride 101 (98-107) mmol/L Carbon Dioxide 29.1 (21.0-32.0) mmol/L Anion Gap 13.5 BUN 9.0 (7.0-18.0) mg/dL Creatinine 0.86 (0.55-1.02) mg/dL Est GFR ( Amer) >60 (>=60 mL/min/1.73m^2) Est GFR (Non-Af Amer) >60 (>=60 mL/min/1.73m^2) BUN/Creatinine Ratio 10.5 Glucose 96 (74-106) mg/dL Lactate 1.3 (0.4-2.0) mmol/L Calcium 8.4 L (8.5-10.1) mg/dL Total Bilirubin 0.4 (0.2-1.0) mg/dL AST 23 (15-37) U/L ALT 41 (14-59) U/L Alkaline Phosphatase 95 (46-116) U/L Total Protein 7.2 (6.4-8.2) g/dL Albumin 3.5 (3.4-5.0) g/dL Globulin 3.7 g/dL Albumin/Globulin Ratio 0.9 Lipase 36.0 (16.0-77.0) U/L Urine Color Lt. yellow (YELLOW) Urine Clarity Clear (CLEAR) Urine pH 6.0 (5.0-9.0) Ur Specific [place] <=1.005 A (1.005-1.025) Urine Protein Negative (NEG/TRACE) mg/dL Urine Glucose (UA) Negative (NEGATIVE) mg/dL Urine Ketones Negative (NEGATIVE) mg/dL Urine Occult Blood Large A (NEGATIVE) Urine Nitrite Negative (NEGATIVE) Urine Bilirubin Negative (NEGATIVE) Urine Urobilinogen 0.2 (0.2-1.0) EU/dL Ur Leukocyte Esterase Negative (NEGATIVE) Urine RBC 10-20 A (0-2) #/HPF Urine WBC 0-2 A (NONE SEEN) #/HPF Ur Squamous Epith Cells Few A (NONE/RARE) #/LPF Urine Crystals None seen (None Seen) #/HPF Urine Bacteria Trace A (NONE SEEN) #/HPF Urine Casts None seen (NONE SEEN) #/LPF Urine Mucus None seen (NONE SEEN) Ur Culture Indicated? No Urine HCG, Qual Negative (NEGATIVE) Discharge Plan Discharge Chief Complaint: Abdominal Pain Clinical Impression: Enteritis Patient Disposition: Home, Self-Care Prescriptions / Home Meds: No Action dexlansoprazole 60 mg capsule,biphase delayed releas 60 mg PO QDAY metoprolol succinate 50 mg tablet extended release 24 hr 50 mg PO QDAY Print Language: Albanian Instructions: Enteritis (ED) Additional Instructions: continue to drink plenty of fluids and follow up with your doctor next week for recheck Referrals: Kimberly Boles MD [Primary Care Provider] - 1 week
[2024-07-06 22:58] VITALS: BP 148/100
[2024-07-06 23:01] LABS: Bilirubin Urine NEGATIVE (NEGATIVE); Blood Urine LARGE (NEGATIVE); Clarity Urine CLEAR (CLEAR); Color Urine LT. YELLOW (YELLOW); Glucose Urine UA NEGATIVE (NEGATIVE); Ketones Urine NEGATIVE (NEGATIVE); Leukocyte Esterase Urine NEGATIVE (NEGATIVE); Nitrite Urine NEGATIVE (NEGATIVE); Protein Urine NEGATIVE (NEG/TRACE); Specific Gravity Urine <=1.005 (1.005-1.025); Urobilinogen Urine 0.2 EU/dL (0.2-1.0)
[2024-07-06 23:04] LABS: Basophils Percent Auto 0.3 % (0.2-2.0); Eosinophils Absolute Auto 0.1 10^3/uL (0.0-0.7); Hematocrit 42.6 % (36.0-48.0); Hemoglobin 14.1 g/dL (12.0-16.0); Immature Granulocytes Abs Auto 0.07 10^3/uL (0.00-0.03); Lymphocytes Absolute Auto 1.1 10^3/uL (1.2-3.8); Lymphocytes Percent Auto 15.3 % (20.5-60.0); Mean Corpuscular HGB Conc 33.1 g/dL (29.9-35.2); Mean Corpuscular Hemoglobin 31.3 pg (26.7-34.0); Mean Corpuscular Volume 94.5 fL (81.0-99.0); Mean Platelet Volume 11.6 fL (9.5-13.5); Monocytes Absolute Auto 0.9 10^3/uL (0.3-0.8); Monocytes Percent Auto 12.9 % (1.7-12.0); Neutrophils Absolute Auto 4.8 10^3/uL (1.4-6.5); Neutrophils Percent Auto 68.5 % (43.0-75.0); Platelet Count 229 10^3/uL (150-450); Red Blood Count 4.51 10^6/uL (4.20-5.40); Red Cell Distribution Width 11.7 % (11.0-15.0)
[2024-07-06 23:04] LABS: HCG Qualitative Urine* NEGATIVE (NEGATIVE); Internal Control Within Normal Limits
[2024-07-06 23:11] LABS: Bacteria Urine TRACE #/HPF (NONE SEEN); Cast Seen? NONE SEEN #/LPF (NONE SEEN); Crystals Seen? None Seen #/HPF (None Seen); Mucus Urine NONE SEEN (NONE SEEN); Squamous Epithelial Cell Urine FEW #/LPF (NONE/RARE); Urine Culture Indicated NO; WBC Urine 0-2 #/HPF (NONE SEEN)
[2024-07-06] MEDS: 0.9 % SODIUM CHLORIDE 1,000 ML 999 ML IV (23:15)
[2024-07-06 23:21] LABS: Lactate/Lactic Acid 1.3 mmol/L (0.4-2.0)
[2024-07-06 23:28] LABS: Alanine Aminotransferase 41 U/L (14-59); Albumin Globulin Ratio 0.9; Albumin Level 3.5 g/dL (3.4-5.0); Alkaline Phosphatase 95 U/L (46-116); Anion Gap 13.5; Aspartate Amino Transferase 23 U/L (15-37); BUN Creatinine Ratio 10.5; Bilirubin Total 0.4 mg/dL (0.2-1.0); Calcium 8.4 mg/dL (8.5-10.1); Carbon Dioxide 29.1 mmol/L (21.0-32.0); Chloride 101 mmol/L (98-107); Estimated GFR (African America >60 (>=60 mL/min/1.73m^2); Estimated GFR (Non-African Ame >60 (>=60 mL/min/1.73m^2); Globulin 3.7 g/dL; Glucose 96 mg/dL (74-106); Potassium 3.6 mmol/L (3.5-5.1); Sodium 140 mmol/L (136-145); Total Protein 7.2 g/dL (6.4-8.2)
[2024-07-07 01:50] VITALS: BP 128/81; PULSE 82; O2SAT 100
== END 2024-07-07 01:51 | disposition home or self-care (01) ==
PROVIDERS: Emergency Provider Internal Medicine; PCP Family Medicine
DX: K52.9 Noninfective gastroenteritis and colitis, unspecified (principal); R10.9 Unspecified abdominal pain; F17.200 Nicotine dependence, unspecified, uncomplicated
CPT/HCPCS: 36415; 74176; 80053; 81001; 83605; 83690; 84703; 85025; 96360; 99285

== ENCOUNTER 2024-09-07 08:10 | Outpatient (OUT) | payer OTHER, SELFPAY ==
--- OUTSIDE RECORDS SUMMARY | 2024-09-07 08:12 | XMS_ITS | CCD ---
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 Name Role Phone CRISTINA RAMIREZ Attending Unavailable JOSELUIS LAO Referring Unavailable KIMBERLY BOTELLO Primary Care Unavailable JENNIFER OLIVIER Admitting Unavailable Kimberly Botello Primary Care Provider LEO Schroeder, DR MALLOY Consulting Unavailable LEO ., DR MALLOY Attending Unavailable LEO ., DR MALLOY Admitting Unavailable ROSMERY, DR KIMBERLY Peñaloza Primary Care Unavailable ROSMERY, DR KIMBERLY Peñaloza Primary Care Unavailable ROSMERY, DR KIMBERLY Peñaloza Consulting Unavailable ROSMERY, DR KIMBERLY Peñaloza Attending Unavailable ROSMERY, DR KIMBERLY Peñaloza Admitting Unavailable Kimberly Botello Unavailable Carrie Pope Attending Unavailable Carrie Pope Admitting Unavailable Kimberly Botello Primary Care Unavailable Kimberly Botello MD Primary Care Provider [phone] Carrie Pope DO Attending Provider [phone] Medications Current Medications Medication Drug Class(es) Dates [...] Active Dexlansoprazole 60 mg capsule,biphase delayed releas (4 sources) Start: 04-29-2024 take 1 capsule by mouth once daily Dexlansoprazole 60 mg capsule,biphase delayed releas Active 60 MG PO Daily April 29, 2024 1:00am Start: 04-29-2024 take 1 capsule by mo [facility] once daily Dexlansoprazole 60 mg capsule,biphase delayed releas Active 60 MG PO Daily April 29, 2024 12:00am Start: 05-30-2023 End: 12-11-2023 take 1 capsule by mouth once daily Dexlansoprazole 60 mg capsule,biphase delayed releas Discontinued 60 MG PO Daily May 30, 2023 12:00am December 11, 2023 3:52pm Start: 05-30-2023 End: 12-11-2023 take 1 capsule by mouth once daily Dexlansoprazole 60 mg capsule,biphase delayed releas Discontinued 60 MG PO Daily May 29, 2023 11:00pm December 11, 2023 2:52pm Iron (2 sources) Iron Active pantoprazole (2 sources) Proton Pump Inhibitor Pantoprazole Sodium Active predniSONE 20 mg oral tablet (2 sources) Start: take 2 tablets by mouth every twenty-four hours predniSONE 20 MG 2 tablet Orally Once a day for 6 day(s) Aug, Active Completed/Discontinued Medications Medication Drug Class(es) Dates Sig (Normalized) Sig (Original) azithromycin 250 mg oral tablet (3 sources) Macrolide Antimicrobial Start: 05-30-2023 End: 12-11-2023 Azithromycin 250 mg tablet Discontinued 0 PO .COMPLEX 6 May 30, 2023 12:00am December 11, 2023 3:52pm For 250 mg dose pack: take 500 mg today (day 1), then 250 mg for 4 days (days 2-5) PO Start: 05-30-2023 End: 12-11-2023 Azithromycin Discontinued 0 PO .COMPLEX May 30, 2023 12:00am December 11, 2023 [...] 3:52pm Start: 06-02-2022 take 1 capsule by mo [facility] every twenty-four hours Dexilant 60 MG 1 capsule Orally Once a day for 30 days May, Active ferrous sulfate 325 mg oral tablet (3 sources) Start: 05-30-2023 End: 04-29-2024 take 1 tablet by mouth once daily Ferrous Sulfate (Feosol) 325 mg (65 mg iron) tablet Discontinued 325 MG PO Daily May 30, 2023 12:00am April 29, 2024 4:32pm Ketorolac (2 sources) Nonsteroidal Anti-inflammatory Drug, Cyclooxygenase Inhibitor Start: 08-24-2019 Toradol per 15 mg Aug, 30 mg meloxicam 15 mg oral tablet (3 sources) Nonsteroidal Anti-inflammatory Drug Start: 12-11-2023 End: 04-29-2024 take 1 tablet by mouth once daily Meloxicam 15 mg tablet Discontinued 15 MG PO Daily December 11, 2023 12:00am April 29, 2024 4:32pm 24 hr metoprolol succinate 50 mg extended release oral tablet (14 sources) beta-Adrenergic Juancarlos Start: 05-30-2023 End: 04-29-2024 take 1 tablet by mouth once daily Metoprolol Succinate 50 mg tablet extended release 24 hr Discontinued 50 MG PO Daily January 11, 2024 4:26pm April 29, 2024 1:05pm take 1 tablet by mouth once kenneth y Metoprolol Succinate ER 50 MG take 1 tablet by mouth once daily for 30 days Active naproxen 500 mg oral tablet (5 sources) Nonsteroidal Anti-inflammatory Drug Start: 05-30-2023 End: 05-30-2023 take 1 tablet by mouth twice daily as needed Naproxen 500 mg tablet Discontinued 500 MG PO Twice daily as needed May 30, 2023 12:00am May 30, 2023 1:42pm Start: 08-24-2019 [facility] hours at mealtime as [...] Episodic Conditions associated with dizziness or vertigo (5 sources) Benign paroxysmal positional vertigo; Translations: [Benign paroxysmal vertigo, right ear] 05-30-2023 Episodic Deficiency and other anemia (5 sources) Anemia; Translations: [Anemia, unspecified] 05-30-2023 Episodic Deficiency and other anemia (2 sources) Iron deficiency anemia; Translations: [Iron deficiency anemia, unspecified] Episodic Esophageal disorders (10 sources) Esophageal reflux finding; Translations: [Esophageal reflux] Onset: 03-28-2017 05-30-2023 Chronic Essential hypertension (5 sources) Essential hypertension; Translations: [Essential (primary) hypertension] 05-30-2023 Chronic Fluid and electrolyte disorders (3 sources) Hypokalemia; Translations: [Hypokalemia] Onset: 05-25-2021 Episodic Malaise and fatigue (2 sources) Fatigue; Translations: [Other fatigue] Episodic Nausea and vomiting (2 sources) Nausea; Translations: [Nausea] Episodic Nonspecific chest pain (2 sources) Chest pain; Translations: [Chest pain, unspecified] Episodic Other aftercare (1 source) Other fci (current) drug therapy; Translations: [OTH PSYCHOLOGY PROFESSOR CURRENT DRUG THERAPY] Onset: 05-12-2022 Episodic Other [...] cough] 05-30-2023 Episodic Other lower respiratory disease (2 sources) Cough; Translations: [Acute cough] 05-30-2023 Episodic Other nervous system disorders (5 sources) Loss of sense of smell; Translations: [...] conditions (not mental disorders or infectious disease) (3 sources) Patient encounter status; Translations: [Encounter for screening for malignant neoplasm of colon] 04-29-2024 Episodic Other upper respiratory infections (6 sources) Chronic sinusitis; Translations: [Chronic sinusitis, unspecified] Chronic Other upper respiratory infections (9 sources) Acute pharyngitis, unspecified; Translations: [Acute pharyngitis] Onset: 05-10-2022 Episodic Screening and history of mental health and substance abuse codes (1 source) Personal history of nicotine dependence; Translations: [PERSONAL HISTORY OF NICOTINE DEPEND] Onset: 05-12-2022 Episodic Spondylosis; intervertebral disc disorders; other back problems (10 sources) Sacroiliac disorder; 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 [...] Test Name Value Interpretation Reference Range Facility Basophils Auto (Bld) [#/Vol] on 07-06-2024 Basophils (Bld) [#/Vol] Automated basophil count 0.0-0.1 [facility] Basophils/100 WBC Auto (Bld) on 07-06-2024 Basophils/100 WBC (Bld) Automated basophil % 0.2-2.0 [facility] Eosinophils/100 WBC Auto (Bl d)on 07-06-2024 Eosinophils/100 WBC (Bld) Automated eosinophil % 0.9-7.0 [facility] Erythrocyte distribution wid th Auto (RBC) [Ratio]on 07-06-2024 Erythrocyte distribution width (RBC) [Ratio] Erythrocyte distribution width [Ratio] by Automated count 11.0-15.0 [facility] Estimated glomerular filtrat ion rate (GFR) non- Americanon 07-06-2024 GFR/1.73 sq M.predicted among non-blacks MDRD (S/P/Bld) [Vol rate/Area] Estimated glomerular filtration rate (GFR) non- >=60 mL/min/1.73m 2 [facility] Globulin Calc (S) [Mass/Vol] on 07-06-2024 Globulin (S) [Mass/Vol] Serum globulin measurement by calculation (mass/volume) [facility] HCG ( test) IA.rapi d Ql (U)on 07-06-2024 HCG ( test) Ql (U) Urine human chorionic gonadotropin (hCG) detection by immunoassay NEGATIVE [facility] Hematocrit Auto (Bld) [Volum e fraction]on 07-06-2024 Hematocrit (Bld) [Volume fraction] Hematocrit [Volume Fraction] of Blood by Automated count 36.0-48.0 [facility] Hemoglobin [Mass/volume] in Bloodon 07-06-2024 Hemoglobin (Bld) [Mass/Vol] Hemoglobin [Mass/volume] in Blood 12.0-16.0 [facility] Laboratory - Chemistry and C hemistry - challengeon 07-06-2024 Albumin [Mass/Vol] 3.5 g/dL 3.4-5.0 [facility] ALP [Catalytic activity/Vol] 95 U/L 46-116 [facility] ALT [Catalytic activity/Vol] 41 U/L 14-59 [facility] AST [Catalytic activity/Vol] 23 U/L 15-37 [facility] Bilirubin [Mass/Vol] 0.4 mg/dL 0.2-1.0 [facility] Calcium [Mass/Vol] 8.4 mg/dL Low 8.5-10.1 [facility] Chloride [Moles/Vol] 101 mmol/L 98-107 [facility] CO2 [Moles/Vol] 29.1 mmol/L 21.0-32.0 [facility] Creatinine [Mass/Vol] 0.86 mg/dL 0.55-1.02 [facility] GFR/1.73 sq M.predicted MDRD (S/P/Bld) [Vol rate/Area] mL/min/{1.73_m2} >=60 mL/min/1.73m 2 [facility] Glucose [Mass/Vol] 96 mg/dL 74-106 [facility] Lactate [Moles/Vol] 1.3 mmol/L 0.4-2.0 [facility] Lipase [Catalytic activity/Vol] 36.0 U/L 16.0-77.0 [facility] Potassium [Moles/Vol] 3.6 mmol/L 3.5-5.1 [facility] Protein [Mass/Vol] 7.2 g/dL 6.4-8.2 [facility] Sodium [Moles/Vol] 140 mmol/L 136-145 [facility] Urea nitrogen [Mass/Vol] 9.0 mg/dL 7.0-18.0 [facility] Urea nitrogen/Creatinine [Mass ratio] 10.5 mg/mg [facility] Laboratory - Hematology and Cell countson 07-06-2024 Immature granulocytes/100 WBC (Bld) 1.0 % High 0.0-0.5 [facility] Leukocytes [#/volume] correc eulalio for nucleated erythrocytes in Blood by Automated counon 07-06-2024 WBC corrected for nucl RBC Auto (Bld) [#/Vol] Leukocytes [#/volume] corrected for nucleated erythrocytes in Blood by Automated coun 4.0-11.0 [facility] Lymphocytes Auto (Bld) [#/Vo l]on 07-06-2024 Lymphocytes (Bld) [#/Vol] Lymphocytes [#/volume] in Blood by Automated count Low 1.2-3.8 [facility] Lymphocytes/100 WBC Auto (Bl d)on 07-06-2024 Lymphocytes/100 WBC (Bld) Lymphocytes/100 leukocytes in Blood by Automated count Low 20.5-60.0 [facility] MCH Auto (RBC) [Entitic mass ]on 07-06-2024 MCH (RBC) [Entitic mass] MCH [Entitic mass] by Automated count 26.7-34.0 [facility] MCHC Auto (RBC) [Mass/Vol]on 07-06-2024 MCHC (RBC) [Mass/Vol] MCHC [Mass/volume] by Automated count 29.9-35.2 [facility] MCV Auto (RBC) [Entitic vol] on 07-06-2024 MCV (RBC) [Entitic vol] MCV [Entitic volume] by Automated count 81.0-99.0 [facility] Monocytes Auto (Bld) [#/Vol] on 07-06-2024 Monocytes (Bld) [#/Vol] Automated blood monocyte count High 0.3-0.8 [facility] Monocytes/100 WBC Auto (Bld) on 07-06-2024 Monocytes/100 WBC (Bld) Automated monocyte % High 1.7-12.0 [facility] Neutrophils Auto (Bld) [#/Vo l]on 07-06-2024 Neutrophils (Bld) [#/Vol] Neutrophils [#/volume] in Blood by Automated count 1.4-6.5 [facility] Neutrophils/100 WBC Auto (Bl d)on 07-06-2024 Neutrophils/100 WBC (Bld) Automated neutrophil % 43.0-75.0 [facility] No Panel Informationon 07-06 Eosinophils # (Auto) 0.1 10 3/uL 0.0-0.7 [facility] Immature Granulocyte # (Auto) 0.07 10 3/uL High 0.00-0.03 [facility] Platelet mean volume Auto (B ld) [Entitic vol]on 07-06-2024 Platelet mean volume (Bld) [Entitic vol] Platelet mean volume [Entitic volume] in Blood by Automated count 9.5-13.5 [facility] Platelets Auto (Bld) [#/Vol] on 07-06-2024 Platelets (Bld) [#/Vol] Platelets [#/volume] in Blood by Automated count 150-450 [facility] RBC Auto (Bld) [#/Vol]on RBC (Bld) [#/Vol] Erythrocytes [#/volume] in Blood by Automated count 4.20-5.40 [facility] Serum or plasma albumin/glob ulin mass ratioon 07-06-2024 Albumin/Globulin [Mass ratio] Serum or plasma albumin/globulin mass ratio [facility] Serum or plasma anion gap de terminationon 07-06-2024 Anion gap [Moles/Vol] Serum or plasma an ion gap determination [facility] Basophils Auto (Bld) [#/Vol] on 06-10-2024 Basophils (Bld) [#/Vol] Automated basophil count 0.0-0.1 [facility] Basophils/100 WBC Auto (Bld) on 06-10-2024 Basophils/100 WBC (Bld) Automated basophil % 0.2-2.0 [facility] Eosinophils/100 WBC Auto (Bl d)on 06-10-2024 Eosinophils/100 WBC (Bld) Automated eosinophil % 0.9-7.0 [facility] Erythrocyte distribution wid th Auto (RBC) [Ratio]on 06-10-2024 Erythrocyte distribution width (RBC) [Ratio] Erythrocyte distribution width [Ratio] by Automated count 11.0-15.0 [facility] Estimated glomerular filtrat ion rate (GFR) non- Americanon 06-10-2024 GFR/1.73 sq M.predicted among non-blacks MDRD (S/P/Bld) [Vol rate/Area] Estimated glomerular filtration rate (GFR) non- >=60 mL/min/1.73m 2 [facility] Globulin Calc (S) [Mass/Vol] on 06-10-2024 Globulin (S) [Mass/Vol] Serum globulin measurement by calculation (mass/volume) [facility] Hematocrit Auto (Bld) [Volum e fraction]on 06-10-2024 Hematocrit (Bld) [Volume fraction] Hematocrit [Volume Fraction] of Blood by Automated count 36.0-48.0 [facility] Hemoglobin [Mass/volume] in Bloodon 06-10-2024 Hemoglobin (Bld) [Mass/Vol] Hemoglobin [Mass/volume] in Blood 12.0-16.0 [facility] Laboratory - Chemistry and C hemistry - challengeon 06-10-2024 Albumin [Mass/Vol] 3.5 g/dL 3.4-5.0 [facility] ALP [Catalytic activity/Vol] 82 U/L 46-116 [facility] ALT [Catalytic activity/Vol] 35 U/L 14-59 [facility] AST [Catalytic activity/Vol] 17 U/L 15-37 [facility] Bilirubin [Mass/Vol] 0.4 mg/dL 0.2-1.0 [facility] Calcium [Mass/Vol] 8.4 mg/dL Low 8.5-10.1 [facility] Chloride [Moles/Vol] 104 mmol/L 98-107 [facility] CO2 [Moles/Vol] 29.4 mmol/L 21.0-32.0 [facility] Creatinine [Mass/Vol] 0.82 mg/dL 0.55-1.02 [facility] GFR/1.73 sq M.predicted MDRD (S/P/Bld) [Vol rate/Area] mL/min/{1.73_m2} >=60 mL/min/1.73m 2 [facility] Glucose [Mass/Vol] 111 mg/dL High 74-106 [facility] Lipase [Catalytic activity/Vol] 35.0 U/L 16.0-77.0 [facility] Potassium [Moles/Vol] 3.4 mmol/L Low 3.5-5.1 [facility] Protein [Mass/Vol] 6.9 g/dL 6.4-8.2 [facility] Sodium [Moles/Vol] 140 mmol/L 136-145 [facility] Urea nitrogen [Mass/Vol] 12.0 mg/dL 7.0-18.0 [facility] Urea nitrogen/Creatinine [Mass ratio] 14.6 mg/mg [facility] Laboratory - Hematology and Cell countson 06-10-2024 Immature granulocytes/100 WBC (Bld) 0.6 % High 0.0-0.5 [facility] Leukocytes [#/volume] correc eulalio for nucleated erythrocytes in Blood by Automated counon 06-10-2024 WBC corrected for nucl RBC Auto (Bld) [#/Vol] Leukocytes [#/volume] corrected for nucleated erythrocytes in Blood by Automated coun 4.0-11.0 [facility] Lymphocytes Auto (Bld) [#/Vo l]on 06-10-2024 Lymphocytes (Bld) [#/Vol] Lymphocytes [#/volume] in Blood by Automated count 1.2-3.8 [facility] Lymphocytes/100 WBC Auto (Bl d)on 06-10-2024 Lymphocytes/100 WBC (Bld) Lymphocytes/100 leukocytes in Blood by Automated count 20.5-60.0 [facility] MCH Auto (RBC) [Entitic mass ]on 06-10-2024 MCH (RBC) [Entitic mass] MCH [Entitic mass] by Automated count 26.7-34.0 [facility] MCHC Auto (RBC) [Mass/Vol]on 06-10-2024 MCHC (RBC) [Mass/Vol] MCHC [Mass/volume] by Automated count 29.9-35.2 [facility] MCV Auto (RBC) [Entitic vol] on 06-10-2024 MCV (RBC) [Entitic vol] MCV [Entitic volume] by Automated count 81.0-99.0 [facility] Monocytes Auto (Bld) [#/Vol] on 06-10-2024 Monocytes (Bld) [#/Vol] Automated blood monocyte count 0.3-0.8 [facility] Monocytes/100 WBC Auto (Bld) on 06-10-2024 Monocytes/100 WBC (Bld) Automated monocyte % 1.7-12.0 [facility] Neutrophils Auto (Bld) [#/Vo l]on 06-10-2024 Neutrophils (Bld) [#/Vol] Neutrophils [#/volume] in Blood by Automated count 1.4-6.5 [facility] Neutrophils/100 WBC Auto (Bl d)on 06-10-2024 Neutrophils/100 WBC (Bld) Automated neutrophil % 43.0-75.0 [facility] No Panel Informationon 06-10 Eosinophils # (Auto) 0.2 10 3/uL 0.0-0.7 [facility] Human Chorionic Gonadotropin, Qual Negative NEGATIVE [facility] Immature Granulocyte # (Auto) 0.05 10 3/uL High 0.00-0.03 [facility] Platelet mean volume Auto (B ld) [Entitic vol]on 06-10-2024 Platelet mean volume (Bld) [Entitic vol] Platelet mean volume [Entitic volume] in Blood by Automated count 9.5-13.5 [facility] Platelets Auto (Bld) [#/Vol] on 06-10-2024 Platelets (Bld) [#/Vol] Platelets [#/volume] in Blood by Automated count 150-450 [facility] RBC Auto (Bld) [#/Vol]on RBC (Bld) [#/Vol] Erythrocytes [#/volume] in Blood by Automated count Low 4.20-5.40 [facility] Serum or plasma albumin/glob ulin mass ratioon 06-10-2024 Albumin/Globulin [Mass ratio] Serum or plasma albumin/globulin mass ratio [facility] Serum or plasma anion gap de terminationon 06-10-2024 Anion gap [Moles/Vol] Serum or plasma an ion gap determination [facility] Laboratory - Microbiology an d Antimicrobial susceptibilityon 06-07-2024 SARS-CoV-2 (COVID-19) RNA ALEYDA+probe Ql (Unsp spec) Negative NEGATIVE [facility] Comment on above: This test has not be en FDA cleared or approved, but has beenauthorized by the FDA under an Emergency Use Authorization(EUA) for use by authorized laboratories certified underIA that meet the requirements to perform moderate or highcomplexity testing. This test has been authorized only forthe detection of proteins from SARS-CoV-2, not for any otherviruses or pathogens. The emergency use of this test isauthorized for the duration of the declaration thatcircumstances exist justifying the authorization ofemergency use of in vitro diagnostic tests for detectionand/or diagnosis of Covid-19 under section 564(b)(1) of theAct, 21 U.S.C. 360bbb-3(b)(1), unless the declaration isterminated or authorization is revoked sooner. No Panel Informationon 06-07 Bedside Influenza Type A Antigen Negative [facility] Comment on above: Negative for Flu A p rotein antigen. Infection due to Flu Acannot be ruled out. Flu A antigen in the sample may bebelow the detection limit of the test. Bedside Influenza Type B Antigen Negative [facility] Comment on above: Negative for Flu B p rotein antigen. Infection due to Flu Bcannot be ruled out. Flu B antigen in the sample may bebelow the detection limit of the test. CBC AUTO DIFFon 05-21-2021 BASO # 0.0 103/ul Normal 0.0-0.1 [facility] Comment on above: Performed By: #### C BC #### [facility] [address] [place] [address] Dr. Da Graham Basophils/100 WBC (Bld) 0.3 % Normal 0.2-2.0 [facility] Comment on above: Performed By: #### C BC #### [facility] [address] [place] [address] Dr. Da Graham EO # 0.2 103/ul Normal 0.0-0.7 [facility] Comment on above: Performed By: #### C BC #### [facility] [address] [place] [address] Dr. Da Graham Eosinophils/100 WBC (Bld) 2.3 % Normal 0.9-7.0 [facility] Comment on above: Performed By: #### C BC #### [facility] [address] [place] [address] Dr. Da Graham Erythrocyte distribution width (RBC) [Ratio] 11.5 % Normal 11.0-15.0 [facility] Comment on above: Performed By: #### C BC #### [facility] [address] [place] [address] Dr. Da Graham Hematocrit (Bld) [Volume fraction] 41.0 % Normal 36.0-48.0 [facility] Comment on above: Performed By: #### C BC #### [facility] [address] [place] [address] Dr. Da Graham Hemoglobin (Bld) [Mass/Vol] 13.5 g/dL Normal 12.0-16.0 [facility] Comment on above: Performed By: #### C BC #### [facility] [address] [place] [address] Dr. Da Graham IG # 0.04 10e3/ul Critically high 0.00-0.03 [facility] Comment on above: Performed By: #### C BC #### [facility] [address] [place] [address] Dr. Da Graham IG % 0.5 % Normal 0.0-0.5 [facility] Comment on above: Performed By: #### C BC #### [facility] [address] [place] [address] Dr. Da Graham LYMPH # 1.9 103/ul Normal 1.2-3.8 [facility] Comment on above: Performed By: #### C BC #### [facility] [address] [place] [address] Dr. Da Graham Lymphocytes/100 WBC (Bld) 25.2 % Normal 20.5-60.0 [facility] Comment on above: Performed By: #### C BC #### [facility] [address] [place] [address] Dr. Da Graham MANUAL DIFF REQ NO Normal [facility] Comment on above: Performed By: #### C BC #### [facility] [address] [id number] [address] Da Graham MCH (RBC) [Entitic mass] 31.6 pg Normal 26.7-34.0 [facility] Comment on above: Performed By: #### C BC #### [facility] [address] [place] [address] Dr. Da Graham MCHC (RBC) [Mass/Vol] 32.9 g/dL Normal 29.9-35.2 [facility] Comment on above: Performed By: #### C BC #### [facility] [address] [place] [address] Dr. Da Graham MCV (RBC) [Entitic vol] 96.0 fL Normal 81.0-99.0 [facility] Comment on above: Performed By: #### C BC #### [facility] [address] [place] [address] Dr. Da Graham MONO # 0.6 103/ul Normal 0.3-0.8 [facility] Comment on above: Performed By: #### C BC #### [facility] [address] [place] [address] Dr. Da Graham Monocytes/100 WBC (Bld) 7.7 % Normal 1.7-12.0 [facility] Comment on above: Performed By: #### C BC #### [facility] [address] [place] [address] Dr. Da Graham NEUT # 4.8 103/ul Normal 1.4-6.5 [facility] Comment on above: Performed By: #### C BC #### [facility] [address] [place] [address] Dr. Da Graham Neutrophils/100 WBC (Bld) 64.0 % Normal 43.0-75.0 [facility] Comment on above: Performed By: #### C BC #### [facility] [address] [place] [address] Dr. Da Graham Platelet mean volume (Bld) [Entitic vol] 11.4 fL Normal 9.5-13.5 [facility] Comment on above: Performed By: #### C BC #### [facility] [address] [place] [address] Dr. Da Graham PLT 247 103/ul Normal 150-450 [facility] Comment on above: Performed By: #### C BC #### [facility] [address] [place] [address] Dr. Da Graham RBC 4.27 106/ul Normal 4.20-5.40 [facility] Comment on above: Performed By: #### C BC #### [facility] [address] [place] [address] Dr. Da Graham WBC 7.5 103/ul Normal 4.0-11.0 [facility] Comment on above: Performed By: #### C BC #### [facility] [address] [place] [address] Dr. Da Graham FERRITINon 05-21-2021 Ferritin [Mass/Vol] 132.0 ng/mL Normal 6.2-137.0 [facility] Comment on above: Performed By: #### F ERR #### [facility] [address] [place] [address] Dr. Da Graham PROF CHEM 8 (BAS METB)on Anion gap [Moles/Vol] 11.2 mmol/L Normal [facility] Comment on above: Performed By: #### B MP #### [facility] [address] [place] [address] Dr. Da Graham Calcium [Mass/Vol] 8.0 mg/dL Critically low 8.4-10.2 [facility] Comment on above: Performed By: #### B MP #### [facility] [address] [place] [address] Dr. Da Graham Chloride [Moles/Vol] 104 mmol/L Normal 98-107 [facility] Comment on above: Performed By: #### B MP #### [facility] [address] [place] [address] Dr. aD Graham CO2 [Moles/Vol] 27.4 mmol/L Normal 22.0-30.0 [facility] Comment on above: Performed By: #### B MP #### [facility] [address] [address] [address] Da Graham Creatinine [Mass/Vol] 0.66 mg/dL Normal 0.52-1.04 [facility] Comment on above: Performed By: #### B MP #### [facility] [address] [address] [address] Da Graham EGFR-AF UGANDAN >60 Normal >=60 [facility] Comment on above: Performed By: #### B MP #### [facility] [address] [address] [address] Da Graham EGFR-NON AF UGANDAN >60 Normal >=60 [facility] Comment on above: Performed By: #### B MP #### [facility] [address] [address] [address] Da Graham Glucose [Mass/Vol] 129 mg/dL Critically high 74-106 T [facility] Comment on above: Performed By: #### B MP #### [facility] [address] [address] [address] Da Graham Potassium [Moles/Vol] 3.6 mmol/L Normal 3.4-5.0 [facility] Comment on above: Performed By: #### B MP #### [facility] [address] [place] [address] Dr. Da Graham Sodium [Moles/Vol] 139 mmol/L Normal 137-145 [facility] Comment on above: Performed By: #### B MP #### [facility] [address] [address] [address] Da Graham Urea nitrogen [Mass/Vol] 10.0 mg/dL Normal 7.0-17.0 [facility] Comment on above: Performed By: #### B MP #### [facility] [address] [place] [address] Dr. Da Graham Urea nitrogen/Creatinine [Mass ratio] 15.2 mg/mg Normal [facility] Comment on above: Performed By: #### B MP #### [facility] [address] [place] [address] Dr. Da Graham [facility] 09-16-2020 CNPN Telephone (NCCAP) EVELINE PLATT ([id number]) 1980 F Date Time Provider Department 09/16/20 BLAKE PATEL [facility] During your visit today, we recorded the [...] Encounter Status:Closed by ALYCIA FELIX on 09/17/20 [facility] CNOVSPon 06-24-2020 CNOVS Visit (SP) Office ([place]) EVELINE PLATT ([id number]) 1980 F Date Time Provider Department 06/24/20 2:15 PM BLAKE PATEL During your visit today, we recorded the following information about you: Temperature Pulse Respiration Blood pressure 97.4 degrees 98/minute 16/minute 135/68 Weight Height Last Period 94.1 kg 1.549 m 05/25/20 Blake Patel MD 06/25/2020 6:20 AM Signed NAME: Eveline Platt CLINIC NO.: [id number] DATE OF SERVICE: June 24, 2020 Some [...] heavy menses. 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 Per HPI and [...] (mg/dL) Date (more content not included)... Normal [facility] Comp Metabolic Panelon 06-24 Albumin [Mass/Vol] 4.5 g/dL Normal 3.9-4.9 [facility] ALP [Catalytic activity/Vol] 86 U/L Normal 34-123 [facility] ALT [Catalytic activity/Vol] 27 U/L Normal 7-38 [facility] Anion gap [Moles/Vol] 7 mmol/L Low 9-18 [facility] AST [Catalytic activity/Vol] 22 U/L Normal 13-35 [facility] Bilirubin [Mass/Vol] 0.2 mg/dL Normal 0.2-1.3 [facility] Calcium [Mass/Vol] 9.0 mg/dL Normal 8.5-10.2 [facility] Chloride [Moles/Vol] 106 mmol/L High 97-105 [facility] CO2 [Moles/Vol] 25 mmol/L Normal 22-30 [facility] Creatinine [Mass/Vol] 0.64 mg/dL Normal 0.58-0.96 [facility] eGFR- Amer. >60 Normal [facility] eGFR-All Other Races >60 Normal [facility] Comment on above: Result Comment: [...] GFR. Glucose [Mass/Vol] 101 mg/dL High 74-99 [facility] Comment on above: Result Comment: The [place] [employer] (ADA) provides guidance for cutoff [...] Standards of Medical Care in Diabetes 2016, [place] [employer]. Diabetes Care. 2016.39(Suppl 1). Potassium [Moles/Vol] 3.9 mmol/L Normal 3.7-5.1 [facility] Protein [Mass/Vol] 7.1 g/dL Normal 6.3-8.0 [facility] Sodium [Moles/Vol] 138 mmol/L Normal 136-144 [facility] Urea nitrogen [Mass/Vol] 10 mg/dL Normal 7-21 [facility] Ferritinon 06-24-2020 Ferritin [Mass/Vol] 64.2 ng/mL Normal 14.7-205.1 [facility] Comment on above: Performed By: #### F ERR, IRON #### [facility] [address] [place], [place] [address] Iron and TIBCon 06-24-2020 Iron [Mass/Vol] 43 ug/dL Normal 41-186 [facility] Comment on above: Performed By: #### F ERR, IRON #### [facility] [address] [place] [address] TIBC 305 ug/dL Normal 232-386 [facility] Comment on above: Performed By: #### F ERR, IRON #### [facility] [address] [place], [place] [address] Transferrin Saturatn 14 % Low 15-57 [facility] Comment on above: Performed By: #### F ERR, IRON #### [facility] [address] [place], [place] [address] Remote CBCDIF (for [facility] use o nly)on 06-24-2020 Abs Baso <0.03 Normal <0.11 [facility] Abs Frederick 0.76 k/uL Normal <0.87 [facility] Abs Neut 4.47 k/uL Normal 1.45-7.50 [facility] Absolute nRBC <0.01 Normal <0.01 [facility] Basophils/100 WBC (Bld) 0.3 % Normal [facility] DTYPE Auto Diff Normal [facility] Eosinophils (Bld) [#/Vol] 0.13 10*3/uL Normal <0.46 [facility] Eosinophils/100 WBC (Bld) 1.9 % Normal [facility] Erythrocyte distribution width (RBC) [Ratio] 13.2 % Normal 11.5-15.0 [facility] Hematocrit (Bld) [Volume fraction] 40.6 % Normal 36.0-46.0 [facility] Hemoglobin (Bld) [Mass/Vol] 13.1 g/dL Normal 11.5-15.5 [facility] Lymphocytes (Bld) [#/Vol] 1.60 10*3/uL Normal 1.00-4.00 [facility] Lymphocytes/100 WBC (Bld) 22.9 % Normal [facility] MCH 29.4 pG Normal 26.0-34.0 [facility] MCHC (RBC) [Mass/Vol] 32.3 g/dL Normal 30.5-36.0 [facility] MCV (RBC) [Entitic vol] 91.2 fL Normal 80.0-100.0 [facility] Monocytes/100 WBC (Bld) 10.9 % Normal [facility] Neutrophils/100 WBC (Bld) 64.0 % Normal [facility] NRBCs 0.0 /100 WBC Normal 0 [facility] Platelet mean volume (Bld) [Entitic vol] 11.5 fL Normal 9.0-12.7 [facility] Platelets (Bld) [#/Vol] 235 10*3/uL Normal 150-400 [facility] RBC (Bld) [#/Vol] 4.45 10*6/uL Normal 3.90-5.20 [facility] WBC (Bld) [#/Vol] 6.98 10*3/uL Normal 3.70-11.00 [facility] CNOVSPon 05-13-2020 CNOVSP Visit (SP) Office ([place]) EVELINE PLATT ([id number]) 1980 F Date Time Provider Department 05/13/20 11:15 AM BLAKE PATEL During your visit today, we recorded the following information about you: Temperature Pulse Respiration Blood pressure 97.3 degrees 79/minute 18/minute 142/87 Weight Height 92.6 kg 1.549 m Blake Patel MD 05/13/2020 12:21 PM Signed NAME: Eveline Platt [facility] NO.: [id number] DATE OF SERVICE: May 13, 2020 Referring Provider: Kimberly Botello Consultation requested by Dr. Botello for an opinion regarding Alexandre Eveline Morton Platt, and my final recommendations will be [...] heavy menses. 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 Per HPI and [...] diagnosis) Plan: CBC + DIFF (FOR REMOTE [facility] USE), COMP METABOLIC PANEL, FERRITIN BLD, IRON [...] Mother Brain tumor Blake Patel MD, CPE [facility] Maricarmen (more content not included)... Normal [facility] Comp Metabolic Panelon 05-13 Albumin [Mass/Vol] 4.4 g/dL Normal 3.9-4.9 [facility] ALP [Catalytic activity/Vol] 81 U/L Normal 34-123 [facility] ALT [Catalytic activity/Vol] 38 U/L Normal 7-38 [facility] Anion gap [Moles/Vol] 7 mmol/L Low 9-18 [facility] AST [Catalytic activity/Vol] 29 U/L Normal 13-35 [facility] Bilirubin [Mass/Vol] 0.3 mg/dL Normal 0.2-1.3 [facility] Calcium [Mass/Vol] 9.2 mg/dL Normal 8.5-10.2 [facility] Chloride [Moles/Vol] 105 mmol/L Normal 97-105 [facility] CO2 [Moles/Vol] 27 mmol/L Normal 22-30 [facility] Creatinine [Mass/Vol] 0.69 mg/dL Normal 0.58-0.96 [facility] eGFR- Amer. >60 Normal [facility] eGFR-All Other Races >60 Normal [facility] Comment on above: Result Comment: [...] GFR. Glucose [Mass/Vol] 127 mg/dL High 74-99 [facility] Comment on above: Result Comment: The [place] Diabetes Association (ADA) provides guidance for cutoff [...] Standards of Medical Care in Diabetes 2016, [place] [employer]. Diabetes Care. 2016.39(Suppl 1). Potassium [Moles/Vol] 4.2 mmol/L Normal 3.7-5.1 [facility] Protein [Mass/Vol] 7.1 g/dL Normal 6.3-8.0 [facility] Sodium [Moles/Vol] 139 mmol/L Normal 136-144 [facility] Urea nitrogen [Mass/Vol] 9 mg/dL Normal 7-21 [facility] Ferritinon 05-13-2020 Ferritin [Mass/Vol] 45.5 ng/mL Normal 14.7-205.1 [facility] Comment on above: Performed By: #### F ERR, IRON #### [address] [address] Iron and TIBCon 05-13-2020 Iron [Mass/Vol] 85 ug/dL Normal 41-186 [facility] Comment on above: Performed By: #### F ERR, IRON #### [facility] [address] [address] TIBC 317 ug/dL Normal 232-386 [facility] Comment on above: Performed By: #### F ERR, IRON #### [facility] [address] [address] Transferrin Saturatn 27 % Normal 15-57 [facility] Comment on above: Performed By: #### F ERR, IRON #### [facility] [address] [address] Remote CBCDIF (for [facility] use o nly)on 05-13-2020 Abs Baso <0.03 Normal <0.11 [facility] Abs Frederick 0.64 k/uL Normal <0.87 [facility] Abs Neut 3.85 k/uL Normal 1.45-7.50 [facility] Absolute nRBC <0.01 Normal <0.01 [facility] Basophils/100 WBC (Bld) 0.3 % Normal [facility] DTYPE Auto Diff Normal [facility] Eosinophils (Bld) [#/Vol] 0.19 10*3/uL Normal <0.46 [facility] Eosinophils/100 WBC (Bld) 3.3 % Normal [facility] Erythrocyte distribution width (RBC) [Ratio] 13.4 % Normal 11.5-15.0 [facility] Hematocrit (Bld) [Volume fraction] 38.8 % Normal 36.0-46.0 [facility] Hemoglobin (Bld) [Mass/Vol] 12.7 g/dL Normal 11.5-15.5 [facility] Lymphocytes (Bld) [#/Vol] 1.05 10*3/uL Normal 1.00-4.00 [facility] Lymphocytes/100 WBC (Bld) 18.2 % Normal [facility] MCH 29.5 pG Normal 26.0-34.0 [facility] MCHC (RBC) [Mass/Vol] 32.7 g/dL Normal 30.5-36.0 [facility] MCV (RBC) [Entitic vol] 90.2 fL Normal 80.0-100.0 [facility] Monocytes/100 WBC (Bld) 11.1 % Normal [facility] Neutrophils/100 WBC (Bld) 67.1 % Normal [facility] NRBCs 0.0 /100 WBC Normal 0 [facility] Platelet mean volume (Bld) [Entitic vol] 11.2 fL Normal 9.0-12.7 [facility] Platelets (Bld) [#/Vol] 240 10*3/uL Normal 150-400 [facility] RBC (Bld) [#/Vol] 4.30 10*6/uL Normal 3.90-5.20 [facility] WBC (Bld) [#/Vol] 5.77 10*3/uL Normal 3.70-11.00 [facility] Coding Summaryon 01-22-2019 Coding Summary CODING DATE: 01/22/2019 [facility] STATUS: Home 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 APC DESCRIPTION [...] PROC APC STAT DESCRIPTION DOCTOR NAME DATE 30892 7961 J1 Laparoscopy, surgical; Eliezer Torres DO with removal of adnexal structures (partial or total oophorectomy and/or salpingectomy) RT Right side (used to identify procedures performed on the right side of the body) 99221 5361 J1 Laparoscopy, surgical; Eliezer Torres DO [...] Awilda Edouard Date Saved: 01/22/2019 10:54 am [facility] Lab - AP Resultson 9 Lab - AP Results [id number] .00OTGTIFF [facility] MAGR Postoperative Recordon 01-21-2019 MAGR Postoperative Record MAGR Phase II Record Summary Primary Physician: Eliezer Torres DO Finalized Date/Time: 01/21/19 13:15:02 Pt. Name: EVELINE PLATT/Sex: 1980 FEMALE Med Rec #: [id number] Physician: Eliezer Torres DO Financial #: [id number] Pt. Type: D Room/Bed: / Admit/Disch: 01/15/19 [...] Signed By: Brittany Soler RN 01/21/19 13:15 [facility] Pathology Sendout Teston Pathology Send Out. See Report [facility] Comment on above: Order Comment: Right fallopian tube and right ovaryPost op Dx: Pelvic pain Performed By: #### 2 [id number] ####[facility] (DEFAULT)[address] [place] [address] History and Physicalon 01-17 History and Physical [id number] .00[facility] Operative Report - Surgeon/P sourav 01-17-2019 Operative Report - Surgeon/Physician [id number] .00[facility] Provider Orderson 01-17-2019 Provider Orders [id number] .[facility] Consent Formson 01-16-2019 Consent Forms [id number] [place] [address] MAGR Intraoperative Recordon 01-16-2019 MAGR Intraoperative Record MAGR Intra-Op Record Summary Primary Physician: Eliezer Torres DO Finalized Date/Time: 01/16/19 15:11:50 Pt. Name: EVELINE PLATT Praveen MarkB./Sex: 1980 FEMALE Med Rec #: [id number] Physician: Eliezer Torres DO Financial #: [id number] Pt. Type: D Room/Bed: / Admit/Disch: 01/15/19 08:48:00 - 01/15/19 15:57:00 Institution: Case Times MAGR Entry 1 Patient In Room Time 01/15/19 11:36:00 Out Room Time 01/15/19 13:26:00 Anesthesia Start Time 01/15/19 11:37:00 Stop Time 01/15/19 13:23:00 Surgery Start Time 01/15/19 12:03:00 Stop Time 01/15/19 13:20:00 Last Modified By: iBanka Frias RN 01/15/19 13:31:59 Case Attendance MAGR Entry 1 Entry 2 Entry 3 Case Attendee Eliezer Torres DO, Satya S MD McKenna RN, Jennifer Role Performed Surgeon - Primary Anesthesiologist of Social Work Administrator Record Time In 01/15/19 11:36:00 01/15/19 11:36:00 01/15/19 11:36:00 Time Out 01/15/19 13:26:00 01/15/19 13:26:00 01/15/19 13:26:00 Procedure Tubal Ligation Tubal Ligation Tubal Ligation Laparoscopic Laparoscopic Laparoscopic Last Modified By: Rodriguez LEE, Bianka Frias RN, Bianka Meyer RN 01/15/19 13:33:51 01/15/19 13:32:06 01/15/19 13:32:06 Entry 4 Entry 5 Entry 6 Case Attendee [employer] CST, Liberty G Nikolaus, Linda M Role Performed Scrub Personnel Scrub Personnel Pipe Welder Time In 01/15/19 11:36:00 01/15/19 11:36:00 01/15/19 11:36:00 Time Out 01/15/19 13:26:00 01/15/19 13:26:00 01/15/19 13:26:00 Procedure Tubal Ligation Tubal Ligation Tubal Ligation Laparoscopic Laparoscopic Laparoscopic Last Modified By: Bianka Frias RN, RN, Bianka Meyer RN 01/15/19 13:34:13 01/15/19 13:34:13 01/15/19 13:32:06 Entry 7 Case Attendee Brittany Guthrie RN Role Performed Social Work Administrator Time In 01/15/19 11:36:00 Time Out 01/15/19 [...] Yes Press Points Checked Yes Additional [place] Pad Positioning Device Safety Strap Information Outcome Met (O.80) Yes Last Modified By: Bianka rFias RN 01/15/19 12:19:08 Post-Care Text: E.290 Evaluates [...] Initial Count Time 01/15/19 11:50:00 Performed By [employer] CST Counts Verification Final Counts Items Included in Sponges, Sharps Final Count Method Manual Final Count Final Count Status Correct Final Counts Bianka Frias RN, Performed By [employer] CST Final Count Time 01/15/19 13:10:00 Surgeon notified [...] By: Bianka Frias RN 01/16/19 15:11 Normal [facility] Operative Report - Surgeon/P sourav 01-16-2019 [...] years ago from a laparoscopy. Next, an [place] uterine manipulator was advanced into the cervix [...] a subcuticular manner on the skin. The [place] uterine manipulator was then removed from the [...] stable condition. Eliezer Torres DO JOB #: [id number] [Electronically Signed on: 01/21/2019 09:10 EST] Eliezer Torres DO [Verified on: 01/21/2019 09:10 EST] Eliezer Torres DO [Transcribed on: 01/16/2019 10:53 EDT] [facility] Telemetry Stripson 9 Telemetry Strips [id number] .00OTGTIFF [facility] Anesthesia Noteon 01-15-2019 Anesthesia Note Patient: EVELINE [...] Problems Right ovarian cyst / SNOMED CT 789126287 / Confirmed DDD (degenerative disc disease), lumbosacral / SNOMED CT 496257565 / Confirmed Eye symptom / SNOMED CT 4207373607 / Confirmed GERD (gastroesophageal reflux disease) / SNOMED CT 650102795 / Confirmed Resolved: Chest pain / SNOMED CT 67753224 Resolved: Palpitations / SNOMED CT 058299009 Canceled: DDD (degenerative disc disease), thoracic / SNOMED CT 852223924 Histories Family History: Esophagus Mother Comments: 04/26/2017 16:57 ANATOLIY Duran RN, Aicha esophagus extra long Kidney Brother Comments: 04/26/2017 16:57 ANATOLIY Duran RN, Aicha kidney transplant Thyroid disease Mother Brother Diabetes mellitus type I Father Brain tumor Mother High blood pressure Father Brother Osteoarthritis Mother Coronary heart disease Father Procedure history: Polypectomy of cervix (177050159) on 04/26/2017 at 36 Years. Comments: 01/02/2019 13:19 Haritha Barger RN ovarian cyst. Patient stated laceration under cervix also with repair Dilation and curettage (09281659) on 03/20/2010 at 29 Years. Comments: 04/26/2017 16:00 Aicha Wasserman hemorrhaged 1 hour after procedure was done Dilation and curettage (00307413). Arthroscopy of knee (539780161). Comments: 01/02/2019 13:00 Haritha Barger RN left Social History Electronic Cigarette/Vaping Assessment Electronic Cigarette Use: Never. Alcohol Assessment Use: Never. Tobacco Assessment Never (less than 100 in lifetime) Tobacco Use:. Substance Abuse Assessment Substance use: Never. . Physical Examination VS/Measurements Vital Signs (last 24 hrs) Last Charted Heart Rate Peripheral L 58bpm (JAN 15:) Resp Rate 16 br/min (JAN 15:) SBP H 141mmHg (JAN 15:07) DBP H 95mmHg (JAN 15:07) SpO2 97 % (JAN 15:06) General: Alert and oriented, No acute distress. Airway: Mallampati classification: II (soft palate, fauces, uvula visible). Mouth: Within normal limits. Respiratory: Respirations are non-labored. Cardiovascular: Normal rate. Review / Management Results review: Lab results: 01/15/2019 8:58 EDT U Preg Negative . Laboratory Results Plan [place] [employer] Anesthesiologists#( A) physical status classification: Class II. Anesthetic Preoperative Plan Anesthesia: General. . Anesthetic plan, risks, benefits, and alternatives discussed with the patient and/or family. Patient verbalized understanding. Family/Guardian present. Informed consent was given. Consent was signed by the patient. [Electronically Signed on: 01/15/2019 12:03 EDT] Tray Gill MD [Verified on: 01/15/2019 12:03 EDT] Tray Gill MD [facility] Inpatient Patient Summaryon 01-15-2019 [place] [address] Patient Discharge Instructions Name: LUKE EVELINE M : 1980 Patient Address: [address] [place] [address] Primary Care Provider: Name: Kimberly Botello MD After you are discharged if you find you have any questions, please, call [phone] ext [phone] to speak to a nurse. Discharge Diagnosis: Pelvic pain Prescription Information: If you have been given a prescription for narcotics, seek immediate medical attention if you have any difficulty breathing or any sudden status changes such as confusion and sleepiness. If you or anyone you know is experiencing suicidal thoughts, mental health, alcohol and/or drug addiction problems; contact the [facility] 10/10 Crisis Hotline -Text 4HHSJ to 168234. If you received any narcotics, sedation, or [...] business decisions or sign any legal documents [facility] would like to thank you for allowing us to assist you with your healthcare needs. The following includes patient education materials and information regarding your injury/illness. EVELINE PLATT has been given the following list of follow-up instructions, prescriptions, and patient education materials: Follow-up Instructions With: Address: When: Eliezer Torres [address] [place] [id number] Business (1) In 2 weeks 01/29/2019 With: Address: When: Kimberly Botello [address] [place] [id number] Business (1) Medications During the course of your visit, your medication list was updated with the most current information. The details of those changes are reflected below: New Medications Printed Prescriptions acetaminophen-hydroco done (Deary 5 mg-325 mg oral tablet) 1 tab(s) [...] you can keep with you. acetaminophen-hydroco done (Deary 5 mg-325 mg oral tablet) 1 tab(s) [...] and abdomen. HOME CARE INSTRUCTIONS ? Take [id number] and prescription medicines only as told by [...] and water are not available, use hand collision repairer. ? Change your dressings (Band Aids) daily [...] provider. Document Released: 02/15/2016 Document Reviewed: 02/15/2016 [employer] Patient Education ?2015 [employer]. Viruses or Bacteria What?s got you sick? [...] for Disease Control and Prevention November 2013 [facility] Recordon 9 MAGR PACU Record MAGR PACU Record Summary Primary Physician: Eliezer Torres DO Finalized Date/Time: 01/15/19 14:27:14 Pt. Name: EVELINE PLATT Praveen Polk./Sex: 1980 FEMALE Med Rec #: [id number] Physician: Eliezer Torres DO Financial #: [id number] Pt. Type: D Room/Bed: / Admit/Disch: 01/15/19 [...] Signed By: Paty Anne RN 01/15/19 14:27 [facility] MAGR Preoperative Recordon 1 MAGR Preoperative Record MAGR Pre-Op Record Summary Primary Physician: Eliezer Torres DO Finalized Date/Time: 01/15/19 12:44:26 Pt. Name: EVELINE PLATT /Sex: 1980 FEMALE Med Rec #: [id number] Physician: Eliezer Torres DO Financial #: [id number] Pt. Type: D Room/Bed: / Admit/Disch: 01/15/19 [...] Signed By: Bianka Frias RN 01/15/19 12:44 [facility] Patient Handouton 01-15-2019 Patient Handout Diagnostic Laparoscopy, [...] and abdomen. HOME CARE INSTRUCTIONS ? Take jjqn-iob-[id number] and prescription medicines only as told by [...] and water are not available, use hand collision repairer. ? Change your dressings (Band Aids) daily [...] provider. Document Released: 02/15/2016 Document Reviewed: 02/15/2016 [employer] Patient Education ?2016 [employer] [facility] Test Urine 1on U Preg Negative [facility] Comment on above: Performed By: #### 3 [id number] #### [facility] (DEFAULT) [address] [place] [address] U Preg Internal Control Pass [facility] Comment on above: Performed By: #### 3 [id number] #### [facility] (DEFAULT) [address] [place] [address] 29266 Progress Note - Nurseon 12-19 Progress Note - Nurse Pre op phone call complete. Spoke with patient, confirmed time of arrival for 0900 on 01/14/19 [Electronically Signed on: 01/14/2019 10:13 EDT] Haritha Lee RN [Verified on: 01/14/2019 10:13 EDT] Haritha Lee RN [facility] ABORhon 01-13-2019 ABO and Rh group Nom (Bld) Hx Check: Found Anti-A: 0 Anti-B: 0 Anti-D: 4+ DCon: NT A1: 4+ B: 4+ ABORh Interp: O POS [facility] Comment on above: Performed By: #### 2 [id number], [id number], [id number], [id number] #### [facility] (DEFAULT) [address] [place] [address] 95239 ABSC Gelon 01-13-2019 ABSC Gel Negative [facility] Comment on above: Performed By: #### 2 [id number], [id number], [id number], [id number] #### [facility] (DEFAULT) [address] [place] [address] 58356 Blood Bank IDon 01-13-2019 Blood Bank ID BBID: [id number] [facility] Comment on above: Performed By: #### 2 [id number], [id number], [id number], [id number] #### [facility] (DEFAULT) [address] [place] [address] 51589 Hgbon 01-13-2019 Hemoglobin (Bld) [Mass/Vol] 13.9 g/dL Normal 11.3-15.9 [facility] Comment on above: Performed By: #### 2 [id number], [id number], [id number], [id number] #### [facility] (DEFAULT) [address] [place] [address] Coding Summaryon 01-10-2019 Coding Summary CODING DATE: 01/10/2019 [facility] STATUS: Home 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 ADMIT DX: [...] Bianka Silva Date Saved: 01/10/2019 04:33 pm [facility] Provider Orderson 01-07-2019 Provider Orders [id number] [facility] .Auto Diff 1on 01-02-2019 Auto Frederick % 9 % Normal 1-12 [facility] Comment on above: Performed By: #### 7 [id number], [id number] #### [facility] (DEFAULT) [address] [place] [address] Baso Abs# 0.0 x10 Normal 0.0-0.2 [facility] Comment on above: Performed By: #### 7 [id number], [id number] #### [facility] (DEFAULT) [address] [place] [address] 03700 Basophils/100 WBC (Bld) 0.4 % Normal 0.2-2.0 [facility] Comment on above: Performed By: #### 7 [id number], [id number] #### [facility] (DEFAULT) [address] [place] [address] Eos Abs# 0.1 x10 Normal 0.0-0.4 [facility] Comment on above: Performed By: #### 7 [id number], [id number] #### [facility] (DEFAULT) [address] [place] [address] 54122 Eosinophils/100 WBC (Bld) 1.7 % Normal 0.9-4.0 [facility] Comment on above: Performed By: #### 7 730125, [id number] #### [facility] (DEFAULT) [address] [place] [address] 83791 Lymphocytes (Bld) [#/Vol] 1.4 x10 Normal 1.3-2.9 [facility] Comment on above: Performed By: #### 7 [id number], [id number] #### [facility] (DEFAULT) [address] [place] [address] 39497 Lymphocytes/100 WBC (Bld) 26 % Normal 14-48 [facility] Comment on above: Performed By: #### 7 674407, [id number] #### [facility] (DEFAULT) [address] [place] [address] 29224 Frederick Abs# 0.5 x10 Normal 0.0-0.8 [facility] Comment on above: Performed By: #### 7 [id number], [id number] #### [facility] (DEFAULT) [address] [place] [address] 38379 Neut Abs# 3.3 x10 Normal 1.5-9.2 [facility] Comment on above: Performed By: #### 7 [id number], [id number] #### [facility] (DEFAULT) [address] [place] [address] 22154 Neutrophils/100 WBC (Bld) 63 % Normal 44-88 [facility] Comment on above: Performed By: #### 7 872935, [id number] #### [facility] (DEFAULT) [address] [place] [address] 72606 CBC w/ Auto Diffon 9 Erythrocyte distribution width (RBC) [Ratio] 12.6 % Normal 11.5-15.0 [facility] Comment on above: Performed By: #### 7 [id number], [id number] #### [facility] (DEFAULT) [address] [place] [address] 73903 Hematocrit (Bld) [Volume fraction] 39.8 % Normal 33.7-40.4 [facility] Comment on above: Performed By: #### 7 [id number], [id number] #### [facility] (DEFAULT) [address] [place] [address] 13117 Hemoglobin (Bld) [Mass/Vol] 13.2 g/dL Normal 11.3-15.9 [facility] Comment on above: Performed By: #### 7 [id number], [id number] #### [facility] (DEFAULT) [address] [place] [address] 78216 Man Diff? Auto Normal [facility] Comment on above: Performed By: #### 7 728354, [id number] #### [facility] (DEFAULT) [address] [place] [address] 70877 MCH (RBC) [Entitic mass] 31 pg Normal 24-34 [facility] Comment on above: Performed By: #### 7 540320, [id number] #### [facility] (DEFAULT) [address] [place] [address] 65393 MCHC (RBC) [Mass/Vol] 33 g/dL Normal 26-37 [facility] Comment on above: Performed By: #### 7 088315, [id number] #### [facility] (DEFAULT) [address] [place] [address] 64210 MCV (RBC) [Entitic vol] 93 fL Normal 81-100 [facility] Comment on above: Performed By: #### 7 912939, [id number] #### [facility] (DEFAULT) [address] [place] [address] 84103 Platelet mean volume (Bld) [Entitic vol] 11.2 fL High 6.3-10.2 [facility] Comment on above: Performed By: #### 7 [id number], [id number] #### [facility] (DEFAULT) [address] [place] [address] 27174 Platelets (Bld) [#/Vol] 242 x10 Normal 138-427 [facility] Comment on above: Performed By: #### 7 957020, [id number] #### [facility] (DEFAULT) [address] [place] [address] 17779 RBC (Bld) [#/Vol] 4.26 x10 Normal 3.70-5.30 [facility] Comment on above: Performed By: #### 7 953782, [id number] #### [facility] (DEFAULT) [address] [place] [address] 12193 WBC (Bld) [#/Vol] 5.2 x10 Normal 3.5-10.5 [facility] Comment on above: Performed By: #### 7 [id number], [id number] #### [facility] (DEFAULT) [address] [place] [address] 27963 BASIC METABOLIC PANELon 09-0 Calcium [Mass/Vol] 8.8 mg/dL Normal 8.6-10.3 [facility] Comment on above: Order Comment: No: D o not add to previous draw Performed By: #### 4 6413, 91842 #### [facility] [address] [place] [address], [place] Chloride [Moles/Vol] 108 mmol/L High 98-107 [facility] Comment on above: Order Comment: No: D o not add to previous draw Performed By: #### 4 6413, 09690 #### [facility] [address] [place] [address], [place] CO2 [Moles/Vol] 23 mmol/L Normal 21-31 [facility] Comment on above: Order Comment: No: D o not add to previous draw Performed By: #### 4 6413, 83734 #### [facility] [address] [place] [address], [place] Creatinine [Mass/Vol] 0.59 mg/dL Low 0.60-1.20 [facility] Comment on above: Order Comment: No: D o not add to previous draw Performed By: #### 4 6413, 14923 #### [facility] [address] [place] [address], [place] GFR/1.73 sq M predicted among blacks MDRD (S/P/Bld) [Vol rate/Area] mL/min/{1.73_m2} Normal >60 [facility] Comment on above: Order Comment: No: D o not add to previous draw Performed By: #### 4 64, 49818 #### [facility] [address] [place] [address], [place] GFR/1.73 sq M predicted among non-blacks MDRD (S/P/Bld) [Vol rate/Area] mL/min/{1.73_m2} Normal >60 [facility] Comment on above: Order Comment: No: D o not add to previous draw Performed By: #### 4 64, 94179 #### [facility] [address] [place] [address], [place] Glucose [Mass/Vol] 272 mg/dL High 70-100 [facility] Comment on above: Order Comment: No: D o not add to previous draw Performed By: #### 4 41, 24766 #### [facility] [address] [place] [address], [place] Potassium [Moles/Vol] 3.6 mmol/L Normal 3.5-5.1 [facility] Comment on above: Order Comment: No: D o not add to previous draw Performed By: #### 4 64, 18626 #### [facility] [address] [place] [address], [place] Sodium [Moles/Vol] 137 mmol/L Normal 136-145 [facility] Comment on above: Order Comment: No: D o not add to previous draw Performed By: #### 4 64, 78843 #### [facility] [address] [place] [address], [place] Urea nitrogen [Mass/Vol] 17 mg/dL Normal 7-25 [facility] Comment on above: Order Comment: No: D o not add to previous draw Performed By: #### 4 80, 53933 #### [facility] [address] CBC COMPLETE BLOOD COUNTon 0 11-21-2018 Erythrocyte distribution width (RBC) [Ratio] 13.0 % Normal 11.5-15.0 [facility] Comment on above: Order Comment: No: D o not add to previous draw Performed By: #### 4 6413, 68407 #### [facility] [address] [facility] [address] Hematocrit (Bld) [Volume fraction] 40.2 % Normal 36.0-45.0 [facility] Comment on above: Order Comment: No: D o not add to previous draw Performed By: #### 4 34, 66095 #### [facility] [address] Hemoglobin (Bld) [Mass/Vol] 13.1 g/dL Normal 12.0-15.0 [facility] Comment on above: Order Comment: No: D o not add to previous draw Performed By: #### 4 71, 20504 #### [facility] [address] [facility] [place] [place] [address], [place] MCH (RBC) [Entitic mass] 30.7 pg Normal 27.0-33.0 [facility] Comment on above: Order Comment: No: D o not add to previous draw Performed By: #### 4 6413, 91898 #### [facility] [address] [facility] [place] [place] [address], [place] MCHC (RBC) [Mass/Vol] 32.6 g/dL Normal 32.0-35.0 [facility] Comment on above: Order Comment: No: D o not add to previous draw Performed By: #### 4 64, 92720 #### [facility] [address] [place] [address], [place] MCV (RBC) [Entitic vol] 94.1 fL Normal 82.0-98.0 [facility] Comment on above: Order Comment: No: D o not add to previous draw Performed By: #### 4 6413, 68162 #### [facility] [address] [place] [address], [place] Nucleated RBC/100 WBC (Bld) [Ratio] 0 % Normal 0-0 [facility] Comment on above: Order Comment: No: D o not add to previous draw Performed By: #### 4 6413, 53081 #### [facility] [address] [place] [id number], [place] PLAT CNT 256 10*3/uL Normal 150-400 [facility] Comment on above: Order Comment: No: D o not add to previous draw Performed By: #### 4 6413, 06487 #### [facility] [address] [place] [address], [place] RBC (Bld) [#/Vol] 4.27 10*6/uL Normal 3.80-5.00 [facility] Comment on above: Order Comment: No: D o not add to previous draw Performed By: #### 4 6413, 79823 #### [facility] [address] [place] [address], [place] WBC (Bld) [#/Vol] 16.78 10*3/uL High 4.00-10.60 [facility] Comment on above: Order Comment: No: D o not add to previous draw Performed By: #### 4 6413, 93428 #### [facility] [address] [place] [address], [place] BASIC METABOLIC PANELon 09-0 -2018 Calcium [Mass/Vol] 9.4 mg/dL Normal 8.6-10.3 [facility] Comment on above: Order Comment: No: D o not add to previous draw Performed By: #### 4 6413, 13467 #### [facility] [address] [place] [id number], [place] Chloride [Moles/Vol] 105 mmol/L Normal 98-107 [facility] Comment on above: Order Comment: No: D o not add to previous draw Performed By: #### 4 6413, 17108 #### [facility] [address] [place] [address], [place] CO2 [Moles/Vol] 22 mmol/L Normal 21-31 [facility] Comment on above: Order Comment: No: D o not add to previous draw Performed By: #### 4 6413, 57793 #### [facility] [address] [place] [address], [place] Creatinine [Mass/Vol] 0.51 mg/dL Low 0.60-1.20 [facility] Comment on above: Order Comment: No: D o not add to previous draw Performed By: #### 4 6413, 71061 #### [facility] [address] [place] [address], [place] GFR/1.73 sq M predicted among blacks MDRD (S/P/Bld) [Vol rate/Area] mL/min/{1.73_m2} Normal >60 [facility] Comment on above: Order Comment: No: D o not add to previous draw Performed By: #### 4 6413, 10031 #### [facility] [address] [place] [address], [place] GFR/1.73 sq M predicted among non-blacks MDRD (S/P/Bld) [Vol rate/Area] mL/min/{1.73_m2} Normal >60 [facility] Comment on above: Order Comment: No: D o not add to previous draw Performed By: #### 4 6413, 72809 #### [facility] [address] [place] [address], [place] Glucose [Mass/Vol] 187 mg/dL High 70-100 [facility] Comment on above: Order Comment: No: D o not add to previous draw Performed By: #### 4 6413, 18103 #### [facility] [address] [place] [address], [place] Potassium [Moles/Vol] 3.6 mmol/L Normal 3.5-5.1 [facility] Comment on above: Order Comment: No: D o not add to previous draw Performed By: #### 4 6413, 52567 #### [facility] [address] [place] [address], [place] Sodium [Moles/Vol] 136 mmol/L Normal 136-145 [facility] Comment on above: Order Comment: No: D o not add to previous draw Performed By: #### 4 64, 78552 #### [facility] [address] [place] [address], [place] Urea nitrogen [Mass/Vol] 12 mg/dL Normal 7-25 [facility] Comment on above: Order Comment: No: D o not add to previous draw Performed By: #### 4 64, 04338 #### [facility] [address] [place] [address], [place] CBC COMPLETE BLOOD COUNTon 0 11-20-2018 Erythrocyte distribution width (RBC) [Ratio] 12.7 % Normal 11.5-15.0 [facility] Comment on above: Order Comment: No: D o not add to previous draw Performed By: #### 4 6413, 22482 #### [facility] [address] [place] [address], [place] Hematocrit (Bld) [Volume fraction] 40.8 % Normal 36.0-45.0 [facility] Comment on above: Order Comment: No: D o not add to previous draw Performed By: #### 4 6413, 94402 #### [facility] [address] [place] [address], [place] Hemoglobin (Bld) [Mass/Vol] 13.6 g/dL Normal 12.0-15.0 [facility] Comment on above: Order Comment: No: D o not add to previous draw Performed By: #### 4 64, 22095 #### [facility] [address] [place] [address], [place] MCH (RBC) [Entitic mass] 30.0 pg Normal 27.0-33.0 [facility] Comment on above: Order Comment: No: D o not add to previous draw Performed By: #### 4 64, 47744 #### [facility] [address] [place] [address], [place] MCHC (RBC) [Mass/Vol] 33.3 g/dL Normal 32.0-35.0 [facility] Comment on above: Order Comment: No: D o not add to previous draw Performed By: #### 4 64, 20219 #### [facility] [address] [place] [address], [place] MCV (RBC) [Entitic vol] 90.1 fL Normal 82.0-98.0 [facility] Comment on above: Order Comment: No: D o not add to previous draw Performed By: #### 4 64, 00932 #### [facility] [address] [facility] [address] Nucleated RBC/100 WBC (Bld) [Ratio] 0 % Normal 0-0 [facility] Comment on above: Order Comment: No: D o not add to previous draw Performed By: #### 4 6413, 41725 #### [facility] [address] [facility] [place] [address], [place] PLAT CNT 277 10*3/uL Normal 150-400 [facility] Comment on above: Order Comment: No: D o not add to previous draw Performed By: #### 4 64, 95124 #### [facility] [address] [facility] [place] [address], [place] RBC (Bld) [#/Vol] 4.53 10*6/uL Normal 3.80-5.00 [facility] Comment on above: Order Comment: No: D o not add to previous draw Performed By: #### 4 6413, 93232 #### [facility] [address] [place] [address], [place] WBC (Bld) [#/Vol] 18.13 10*3/uL High 4.00-10.60 [facility] Comment on above: Order Comment: No: D o not add to previous draw Performed By: #### 4 6413, 26125 #### [facility] [address] [place] [address], [place] POC GLUCOSE LABon 11-20-2018 Glucose [Mass/Vol] 357 mg/dL High 70-100 [facility] Comment on above: Performed By: #### 4 6413, 44483 #### [facility] [address] [place] [address], [place] Glucose [Mass/Vol] 272 mg/dL High 70-100 [facility] Comment on above: Performed By: #### 4 6413, 81178 #### [facility] [address] [place] [address], [place] Glucose [Mass/Vol] 201 mg/dL High 70-100 [facility] Comment on above: Performed By: #### 4 6413, 36212 #### [facility] [address] [place] [address], [place] Glucose [Mass/Vol] 183 mg/dL High 70-100 [facility] Comment on above: Performed By: #### 4 6413, 33046 #### [facility] [address] [place] [address], [place] BASIC METABOLIC PANELon Calcium [Mass/Vol] 8.7 mg/dL Normal 8.6-10.3 [facility] Comment on above: Order Comment: No: D o not add to previous draw Performed By: #### 5 0608 #### [facility] [address] [place] [address], [place] Chloride [Moles/Vol] 106 mmol/L Normal 98-107 [facility] Comment on above: Order Comment: No: D o not add to previous draw Performed By: #### 5 0608 #### [facility] [address] [place] [address], [place] CO2 [Moles/Vol] 25 mmol/L Normal 21-31 [facility] Comment on above: Order Comment: No: D o not add to previous draw Performed By: #### 5 0608 #### [facility] [address] [place] [address], [place] Creatinine [Mass/Vol] 0.62 mg/dL Normal 0.60-1.20 [facility] Comment on above: Order Comment: No: D o not add to previous draw Performed By: #### 5 0608 #### [facility] [address] [place] [address], [place] GFR/1.73 sq M predicted among blacks MDRD (S/P/Bld) [Vol rate/Area] mL/min/{1.73_m2} Normal >60 [facility] Comment on above: Order Comment: No: D o not add to previous draw Performed By: #### 5 0608 #### [facility] [address] [place] [address], [place] GFR/1.73 sq M predicted among non-blacks MDRD (S/P/Bld) [Vol rate/Area] mL/min/{1.73_m2} Normal >60 [facility] Comment on above: Order Comment: No: D o not add to previous draw Performed By: #### 5 0608 #### [facility] [address] [place] [address], [place] Glucose [Mass/Vol] 126 mg/dL High 70-100 [facility] Comment on above: Order Comment: No: D o not add to previous draw Performed By: #### 5 0608 #### [facility] [address] [place] [address], [place] Potassium [Moles/Vol] 3.7 mmol/L Normal 3.5-5.1 [facility] Comment on above: Order Comment: No: D o not add to previous draw Performed By: #### 5 0608 #### [facility] [address] [place] [address], [place] Sodium [Moles/Vol] 137 mmol/L Normal 136-145 [facility] Comment on above: Order Comment: No: D o not add to previous draw Performed By: #### 5 0608 #### [facility] [address] [place] [address], [place] Urea nitrogen [Mass/Vol] 14 mg/dL Normal 7-25 [facility] Comment on above: Order Comment: No: D o not add to previous draw Performed By: #### 5 0608 #### [facility] [address] [place] [address], [place] CBC COMPLETE BLOOD COUNTon 0 11-19-2018 Erythrocyte distribution width (RBC) [Ratio] 12.7 % Normal 11.5-15.0 [facility] Comment on above: Order Comment: No: D o not add to previous draw Performed By: #### 5 0608 #### [facility] [address] [place] [address], [place] Hematocrit (Bld) [Volume fraction] 40.8 % Normal 36.0-45.0 [facility] Comment on above: Order Comment: No: D o not add to previous draw Performed By: #### 5 0608 #### [facility] [address] [place] [address], [place] Hemoglobin (Bld) [Mass/Vol] 13.3 g/dL Normal 12.0-15.0 [facility] Comment on above: Order Comment: No: D o not add to previous draw Performed By: #### 5 0608 #### [facility] [address] [place] [address], [place] MCH (RBC) [Entitic mass] 30.6 pg Normal 27.0-33.0 [facility] Comment on above: Order Comment: No: D o not add to previous draw Performed By: #### 5 0608 #### [facility] [address] [place] [address], [place] MCHC (RBC) [Mass/Vol] 32.6 g/dL Normal 32.0-35.0 [facility] Comment on above: Order Comment: No: D o not add to previous draw Performed By: #### 5 0608 #### [facility] [address] [place] [address], [place] MCV (RBC) [Entitic vol] 93.8 fL Normal 82.0-98.0 [facility] Comment on above: Order Comment: No: D o not add to previous draw Performed By: #### 5 0608 #### [facility] [address] [place] [address], [place] Nucleated RBC/100 WBC (Bld) [Ratio] 0 % Normal 0-0 [facility] Comment on above: Order Comment: No: D o not add to previous draw Performed By: #### 5 0608 #### [facility] [address] [facility] [place] [place] [address], [place] PLAT CNT 218 10*3/uL Normal 150-400 [facility] Comment on above: Order Comment: No: D o not add to previous draw Performed By: #### 5 0608 #### [facility] [address] [facility] [place] [address], [place] RBC (Bld) [#/Vol] 4.35 10*6/uL Normal 3.80-5.00 [facility] Comment on above: Order Comment: No: D o not add to previous draw Performed By: #### 5 0608 #### [facility] [address] WBC (Bld) [#/Vol] 6.28 10*3/uL Normal 4.00-10.60 [facility] Comment on above: Order Comment: No: D o not add to previous draw Performed By: #### 5 0608 #### [facility] [address] POC GLUCOSE LABon 11-19-2018 Glucose [Mass/Vol] 236 mg/dL High 70-100 [facility] Comment on above: Performed By: #### 5 0608 #### [facility] [address] Glucose [Mass/Vol] 217 mg/dL High 70-100 [facility] Comment on above: Performed By: #### 5 0608 #### [facility] [address] Glucose [Mass/Vol] 180 mg/dL High 70-100 [facility] Comment on above: Performed By: #### 5 0608 #### [facility] [address] Glucose [Mass/Vol] 110 mg/dL High 70-100 [facility] Comment on above: Performed By: #### 5 0608 #### [facility] [address] CBC W/DIFFon 11-18-2018 ABS BASOPHILS 0.0 10*3/uL Normal 0.0-0.2 [facility] Comment on above: Order Comment: Unkno wn Performed By: #### 5 0103 #### [facility] [address] [place] [address], [place] ABS IMM GRANS 0.0 10*3/uL Normal 0.0-0.2 [facility] Comment on above: Order Comment: Unkno wn Performed By: #### 5 0103 #### [facility] [address] [place] [address], [place] ABS NEUTROPHILS 3.3 10*3/uL Normal 1.6-7.6 [facility] Comment on above: Order Comment: Unkno wn Performed By: #### 5 0103 #### [facility] [address] [place] [address], [place] Basophils/100 WBC (Bld) 0.4 % Normal 0.0-1.0 [facility] Comment on above: Order Comment: Unkno wn Performed By: #### 5 0103 #### [facility] [address] [place] [address], [place] Eosinophils (Bld) [#/Vol] 0.1 10*3/uL Normal 0.0-0.5 [facility] Comment on above: Order Comment: Unkno wn Performed By: #### 5 3 #### [facility] [address] [place] [address], [place] Eosinophils/100 WBC (Bld) 2.3 % Normal 0.0-6.0 [facility] Comment on above: Order Comment: Unkno wn Performed By: #### 5 3 #### [facility] [address] [place] [address], [place] Erythrocyte distribution width (RBC) [Ratio] 12.8 % Normal 11.5-15.0 [facility] Comment on above: Order Comment: Unkno wn Performed By: #### 3 #### [facility] [address] [place] [id number], [place] Hematocrit (Bld) [Volume fraction] 38.6 % Normal 36.0-45.0 [facility] Comment on above: Order Comment: Unkno wn Performed By: #### 102 #### [facility] [address] [place] [address], [place] Hemoglobin (Bld) [Mass/Vol] 12.8 g/dL Normal 12.0-15.0 [facility] Comment on above: Order Comment: Unkno wn Performed By: #### 5 0103 #### [facility] [address] [place] [id number], [place] IMMATURE GRANS 0.5 % Normal 0.0-1.0 [facility] Comment on above: Order Comment: Unkno wn Performed By: #### 5 0103 #### [facility] [address] [place] [address], [place] Lymphocytes (Bld) [#/Vol] 1.6 10*3/uL Normal 1.2-4.0 [facility] Comment on above: Order Comment: Unkno wn Performed By: #### 5 0103 #### [facility] [address] [facility] [place] [address], [place] Lymphocytes/100 WBC (Bld) 28.1 % Normal 20.0-45.0 [facility] Comment on above: Order Comment: Unkno wn Performed By: #### 5 0103 #### [facility] [address] [facility] [place] [address], [place] MCH (RBC) [Entitic mass] 30.2 pg Normal 27.0-33.0 [facility] Comment on above: Order Comment: Unkno wn Performed By: #### 5 0103 #### [facility] [address] [place] [address], [place] MCHC (RBC) [Mass/Vol] 33.2 g/dL Normal 32.0-35.0 [facility] Comment on above: Order Comment: Unkno wn Performed By: #### 5 0103 #### [facility] [address] [place] [address], [place] MCV (RBC) [Entitic vol] 91.0 fL Normal 82.0-98.0 [facility] Comment on above: Order Comment: Unkno wn Performed By: #### 5 0103 #### [facility] [address] [place] [address], [place] Monocytes (Bld) [#/Vol] 0.5 10*3/uL Normal 0.1-1.0 [facility] Comment on above: Order Comment: Unkno wn Performed By: #### 5 0103 #### [facility] [address] [place] [address], [place] MONOS 9.0 % Normal 5.0-12.0 [facility] Comment on above: Order Comment: Unkno wn Performed By: #### 5 3 #### [facility] [address] [place] [address], [place] Neutrophils/100 WBC (Bld) 59.7 % Normal 40.0-72.0 [facility] Comment on above: Order Comment: Unkno wn Performed By: #### 5 3 #### [facility] [address] [place] [address], [place] Nucleated RBC/100 WBC (Bld) [Ratio] 0 % Normal 0-0 [facility] Comment on above: Order Comment: Unkno wn Performed By: #### 5 102 #### [facility] [address] [place] [address], [place] PLAT CNT 211 10*3/uL Normal 150-400 [facility] Comment on above: Order Comment: Unkno wn Performed By: #### 5 102 #### [facility] [address] [place] [address], [place] RBC (Bld) [#/Vol] 4.24 10*6/uL Normal 3.80-5.00 [facility] Comment on above: Order Comment: Unkno wn Performed By: #### 5 102 #### [facility] [address] [place] [address], [place] WBC (Bld) [#/Vol] 5.55 10*3/uL Normal 4.00-10.60 [facility] Comment on above: Order Comment: Unkno wn Performed By: #### 5 0103 #### [facility] [address] [place] [address], [place] COMP METABOLIC PANELon 11-18 Albumin [Mass/Vol] 3.7 g/dL Normal 3.5-5.7 [facility] Comment on above: Order Comment: Unkno wn Performed By: #### 0 0121 #### [facility] [address] [place] [address], [place] ALKALINE PHOSPH 64 IU/L Normal 34-104 [facility] Comment on above: Order Comment: Unkno wn Performed By: #### 0 0121 #### [facility] [address] [place] [address], [place] ALT [Catalytic activity/Vol] 22 U/L Normal 7-52 [facility] Comment on above: Order Comment: Unkno wn Performed By: #### 0 0121 #### [facility] [address] [facility] [place] [address], [place] AST [Catalytic activity/Vol] 20 U/L Normal 13-39 [facility] Comment on above: Order Comment: Unkno wn Performed By: #### 0 0121 #### [facility] [address] [place] [address], [place] Bilirubin [Mass/Vol] 0.3 mg/dL Normal 0.3-1.0 [facility] Comment on above: Order Comment: Unkno wn Performed By: #### 0 0121 #### [facility] [address] [place] [address], [place] Calcium [Mass/Vol] 8.3 mg/dL Low 8.6-10.3 [facility] Comment on above: Order Comment: Unkno wn Performed By: #### 0 0121 #### [facility] [address] [place] [address], [place] Chloride [Moles/Vol] 107 mmol/L Normal 98-107 [facility] Comment on above: Order Comment: Unkno wn Performed By: #### 0 0121 #### [facility] [address] [place] [address], [place] CO2 [Moles/Vol] 22 mmol/L Normal 21-31 [facility] Comment on above: Order Comment: Unkno wn Performed By: #### 0 0121 #### [facility] [address] [place] [address], [place] Creatinine [Mass/Vol] 0.60 mg/dL Normal 0.60-1.20 [facility] Comment on above: Order Comment: Unkno wn Performed By: #### 0 0121 #### [facility] [address] [place] [address], [place] GFR/1.73 sq M predicted among blacks MDRD (S/P/Bld) [Vol rate/Area] mL/min/{1.73_m2} Normal >60 [facility] Comment on above: Order Comment: Unkno wn Performed By: #### 0 0121 #### [facility] [address] [place] [address], [place] GFR/1.73 sq M predicted among non-blacks MDRD (S/P/Bld) [Vol rate/Area] mL/min/{1.73_m2} Normal >60 [facility] Comment on above: Order Comment: Unkno wn Performed By: #### 0 0121 #### [facility] [address] [place] [address], [place] Glucose [Mass/Vol] 126 mg/dL High 70-100 [facility] Comment on above: Order Comment: Unkno wn Performed By: #### 0 0121 #### [facility] [address] [place] [address], [place] Potassium [Moles/Vol] 3.7 mmol/L Normal 3.5-5.1 [facility] Comment on above: Order Comment: Unkno wn Performed By: #### 0 0121 #### [facility] [address] [place] [address], [place] Protein [Mass/Vol] 6.6 g/dL Normal 6.0-8.3 [facility]: Order Comment: Unkno wn Performed By: #### 0 0121 #### [facility] [address] [place] [address], [place] Sodium [Moles/Vol] 135 mmol/L Low 136-145 [facility] Comment on above: Order Comment: Unkno wn Performed By: #### 0 0121 #### [facility] [address] [place] [address], [place] Urea nitrogen [Mass/Vol] 10 mg/dL Normal 7-25 [facility] Comment on above: Order Comment: Unkno wn Performed By: #### 0 0121 #### [facility] [address] [place] [address], [place] HEMOGLOBIN A1Con 11-18-2018 HbA1c (Bld) [Mass fraction] 103 mg/dL Normal 70-126 [facility] Comment on above: Order Comment: No: D o not add to previous draw Performed By: #### 4 6413, 56187 #### [facility] [address] [place] [address], [place] HbA1c (Bld) [Mass fraction] 5.2 % Normal 4.0-6.0 [facility] Comment on above: Order Comment: No: D o not add to previous draw Performed By: #### 4 6413, 62623 #### [facility] [address] [place] [address], [place] MRI FACE ORBIT NECK W WO CON TRASTon 11-18-2018 MRI FACE ORBIT NECK W WO CONTRAST [facility] [address] [place] [address] Patient Name: EVELINE PLATT : 1980 Sex: F Age: Race: White Pt. Location: [id number] Patient Status: I Ordered Date: 11/18/2018 1:50:00 PM Completed Date: 11/18/2018 03:01 PM Requesting Provider: WILD [place] Attending Provider: CRISITNA RAMIREZ Report Copy To: Signs & Symptoms: [...] findings. Electronically signed by:Lisbeth Guzman. Transcribed by: [email or web address], User Resident: MELISSA BLANKENSHIP Electronically Signed by: LISBETH GUZMAN @ 11/19/2018 08:37 AM I personally read this/these film(s) with this resident Normal [facility] Comment on above: Order Comment: No: D o not add to previous draw POC GLUCOSE LABon 11-18-2018 Glucose [Mass/Vol] 150 mg/dL High 70-100 [facility] Comment on above: Performed By: #### 5 0608 #### [facility] [address] [place] [address], [place] Glucose [Mass/Vol] 103 mg/dL High 70-100 [facility] Comment on above: Performed By: #### 8 5499 #### [facility] [address] [place] [address], [place] BASIC METABOLIC PANELon 08 Calcium [Mass/Vol] 8.8 mg/dL Normal 8.6-10.3 [facility] Comment on above: Order Comment: No: D o not add to previous draw Performed By: #### 4 6413, 55410 #### [facility] [address] [place] [address], [place] Chloride [Moles/Vol] 105 mmol/L Normal 98-107 [facility] Comment on above: Order Comment: No: D o not add to previous draw Performed By: #### 4 6413, 24736 #### [facility] [address] [place] [address], [place] CO2 [Moles/Vol] 26 mmol/L Normal 21-31 [facility] Comment on above: Order Comment: No: D o not add to previous draw Performed By: #### 4 6413, 13641 #### [facility] [address] [place] [address], [place] Creatinine [Mass/Vol] 0.71 mg/dL Normal 0.60-1.20 [facility] Comment on above: Order Comment: No: D o not add to previous draw Performed By: #### 4 6413, 88887 #### [facility] [address] [place] [address], [place] GFR/1.73 sq M predicted among blacks MDRD (S/P/Bld) [Vol rate/Area] mL/min/{1.73_m2} Normal >60 [facility] Comment on above: Order Comment: No: D o not add to previous draw Performed By: #### 4 6413, 88929 #### [facility] [address] [place] [address], [place] GFR/1.73 sq M predicted among non-blacks MDRD (S/P/Bld) [Vol rate/Area] mL/min/{1.73_m2} Normal >60 [facility] Comment on above: Order Comment: No: D o not add to previous draw Performed By: #### 4 6413, 51567 #### [facility] [address] [place] [address], [place] Glucose [Mass/Vol] 90 mg/dL Normal 70-100 [facility] Comment on above: Order Comment: No: D o not add to previous draw Performed By: #### 4 64, 66470 #### [facility] [address] [place] [address], [place] Potassium [Moles/Vol] 3.6 mmol/L Normal 3.5-5.1 [facility] Comment on above: Order Comment: No: D o not add to previous draw Performed By: #### 4 6413, 89877 #### [facility] [address] [place] [address], [place] Sodium [Moles/Vol] 138 mmol/L Normal 136-145 [facility] Comment on above: Order Comment: No: D o not add to previous draw Performed By: #### 4 6413, 23252 #### [facility] [address] [place] [address], [place] Urea nitrogen [Mass/Vol] 10 mg/dL Normal 7-25 [facility] Comment on above: Order Comment: No: D o not add to previous draw Performed By: #### 4 6413, 41716 #### [facility] [address] [place] [address], [place] CBC COMPLETE BLOOD COUNT11-17-2018 Erythrocyte distribution width (RBC) [Ratio] 12.8 % Normal 11.5-15.0 [facility] Comment on above: Order Comment: No: D o not add to previous draw Performed By: #### 5 0608 #### [facility] [address] [place] [address], [place] Hematocrit (Bld) [Volume fraction] 40.1 % Normal 36.0-45.0 [facility] Comment on above: Order Comment: No: D o not add to previous draw Performed By: #### 5 0608 #### [facility] [address] [place] [address], [place] Hemoglobin (Bld) [Mass/Vol] 13.1 g/dL Normal 12.0-15.0 [facility] Comment on above: Order Comment: No: D o not add to previous draw Performed By: #### 5 0608 #### [facility] [address] [place] [address], [place] MCH (RBC) [Entitic mass] 30.5 pg Normal 27.0-33.0 [facility] Comment on above: Order Comment: No: D o not add to previous draw Performed By: #### 5 0608 #### [facility] [address] [place] [address], [place] MCHC (RBC) [Mass/Vol] 32.7 g/dL Normal 32.0-35.0 [facility] Comment on above: Order Comment: No: D o not add to previous draw Performed By: #### 5 0608 #### [facility] [address] [place] [address], [place] MCV (RBC) [Entitic vol] 93.3 fL Normal 82.0-98.0 [facility] Comment on above: Order Comment: No: D o not add to previous draw Performed By: #### 5 0608 #### [facility] [address] [facility] [place] [place] [address], [place] Nucleated RBC/100 WBC (Bld) [Ratio] 0 % Normal 0-0 [facility] Comment on above: Order Comment: No: D o not add to previous draw Performed By: #### 5 0608 #### [facility] [address] [facility] [place] [address], [place] PLAT CNT 225 10*3/uL Normal 150-400 [facility] Comment on above: Order Comment: No: D o not add to previous draw Performed By: #### 5 0608 #### [facility] [address] [facility] [place] [address], [place] RBC (Bld) [#/Vol] 4.30 10*6/uL Normal 3.80-5.00 [facility] Comment on above: Order Comment: No: D o not add to previous draw Performed By: #### 5 0608 #### [facility] [address] [place] [address], [place] WBC (Bld) [#/Vol] 5.88 10*3/uL Normal 4.00-10.60 [facility] Comment on above: Order Comment: No: D o not add to previous draw Performed By: #### 5 0608 #### [id number] [place] [address] CTA HEADon 11-17-2018 CTA HEAD [facility] [address] [place] [address] Patient Name: EVELINE PLATT : 1980 Sex: F Age: Race: White Pt. Location: [id number] Patient Status: I Ordered Date: 11/17/2018 11:30:00 [...] findings. Electronically signed by:Brendan Mario. Transcribed by: [email or web address], User Resident: WHITNEY GLEASON Electronically Signed by: BRENDAN MARIO @ 11/18/2018 07:23 PM I personally read this/these film(s) with this resident Normal [facility] Comment on above: Order Comment: No: D o not add to previous draw CTA NECKon 11-17-2018 CTA NECK [facility] Rad[facility] [address] [place] [id number] Patient Name: EVELINE PLATT : 1980 Sex: F Age: Race: White Pt. Location: [id number] Patient Status: I Ordered Date: 11/17/2018 11:30:00 [...] findings. Electronically signed by:Brendan Mario. Transcribed by: [email or web address], User Resident: WHITNEY GLEASON Electronically Signed by: BRENDAN MARIO @ 11/18/2018 07:23 PM I personally read this/these film(s) with this resident Normal [facility] History and Physicalon 11-17 History and Physical MR#: [id number] [facility] Pt. Name: Eveline Platt Admitted: 11/17/2018 Date of : 1980 Attending Physician: Jennifer Kincaid MD Room #: [id number] Discharge Date: HISTORY AND PHYSICAL CHIEF COMPLAINT: [...] P Jennifer Kincaid MD Date Dict: 11/17/2018/03:04 A/Jennifer Kincaid MD Date Trans: 11/17/2018 05:13 [place]/jp [id number] Normal [facility] LIPID PROFILEon 11-17-2018 Cholesterol [Mass/Vol] 133 mg/dL Normal 120-200 [facility] Comment on above: Order Comment: No: D o not add to previous draw Result Comment: CHOL ESTEROL REFERENCE RANGE: 20 YEARS AND OLDER CARDIOVASCULAR RISK Less than 200 mg/dl Low Risk 200 to 239 mg/dl Borderline Risk 240 mg/dl and greater High Risk Performed By: #### 4 7804, 73458 #### [address] Cholesterol in HDL [Mass/Vol] 39 mg/dL Normal 23-92 [facility] Comment on above: Order Comment: No: D o not add to previous draw Result Comment: Slig ht variation in normal range could be due to gender and/or age. HDL CHOLESTEROL REFERENCE RANGE: 20 years and older Cardiovascular Risk > or =60 mg/dL Desirable 40 TO 59 mg/dL Low Risk <40 mg/dL High Risk Performed By: #### 4 2513, 53110 #### [facility] [address] [place] [address], [place] Cholesterol in LDL [Mass/Vol] 52 mg/dL Normal 0-130 [facility] Comment on above: Order Comment: No: D o not add to previous draw Result Comment: LDL IS A CALCULATION LDL IS ONLY VALID IF THE TRIG IS LESS THAN 400. Performed By: #### 4 64, 04188 #### [facility] [address] [place] [address], [place] Cholesterol.total/Cho lesterol in HDL [Mass ratio] 3.4 {ratio} Normal 0.0-4.5 [facility] Comment on above: Order Comment: No: D o not add to previous draw Performed By: #### 4 71, 69571 #### [facility] [address] [place] [address], [place] NON-HDL CHOLESTEROL 94 mg/dL Normal [facility] Comment on above: Order Comment: No: D o not add to previous draw Performed By: #### 4 4713, 92990 #### [facility] [address] [place] [address], [place] Triglyceride [Mass/Vol] 208 mg/dL High 40-149 [facility] Comment on above: Order Comment: No: D o not add to previous draw Result Comment: TRIG LYCERIDE REFERENCE RANGE: 20 YEARS AND OLDER CARDIOVASCULAR RISK LESS THAN 150 mg/dl LOW RISK 150 TO 199 mg/dl BORDERLINE RISK 200 mg/dl AND GREATER HIGH RISK Performed By: #### 4 6413, 95698 #### [facility] [address] [place] [address], [place] VLDL CHOL 42 mg/dL High 0-40 [facility] Comment on above: Order Comment: No: D o not add to previous draw Performed By: #### 4 39, 90111 #### [id number] [place] [address] MRI BRAIN W WO CONTRASTon MRI BRAIN W WO CONTRAST [facility] Radiology [address] [place] [id number] Patient Name: EVELINE PLATT : 1980 Sex: F Age: Race: White Pt. Location: [id number] Patient Status: I Ordered Date: 11/17/2018 2:50:00 [...] findings. Electronically signed by:Brendan Mario. Transcribed by: [email or web address], User Resident: WHITNEY GLEASON Electronically Signed by: BRENDAN MARIO @ 11/18/2018 07:22 PM I personally read this/these film(s) with this resident Normal [facility] Comment on above: Order Comment: R/O C [facility] SEDIMENTATION RATEon 019 SED RATE 13 mm/hr Normal 0-20 [facility] Comment on above: Order Comment: No: D o not add to previous draw Performed By: #### 5 6506 #### [facility] [address] [place] [address], [place] TOX PANEL URINEon 11-17-2018 50 THC Negative Normal NEGATIVE [facility] Comment on above: Order Comment: No: D o not add to previous draw Performed By: #### 3 1079 #### [facility] [address] [place] [address], [place] BARBITURATES Negative Normal NEGATIVE [facility] Comment on above: Order Comment: No: D o not add to previous draw Performed By: #### 3 1079 #### [facility] [address] [place] [address], [place] Benzodiazepines Ql (U) Negative Normal NEGATIVE [facility] Comment on above: Order Comment: No: D o not add to previous draw Performed By: #### 3 1079 #### [facility] [address] [place] [address], [place] Cocaine Ql (U) Negative Normal NEGATIVE [facility] Comment on above: Order Comment: No: D o not add to previous draw Performed By: #### 3 1079 #### [facility] [address] [place] [address], [place] Methadone Ql (U) Negative Normal NEGATIVE [facility] Comment on above: Order Comment: No: D o not add to previous draw Performed By: #### 3 1079 #### [facility] [address] [place] [address], [place] MONO AMPHET Negative Normal NEGATIVE [facility] Comment on above: Order Comment: No: D o not add to previous draw Performed By: #### 3 1079 #### [facility] [address] [place] [address], [place] Opiates Ql (U) Negative Normal NEGATIVE [facility] Comment on above: Order Comment: No: D o not add to previous draw Performed By: #### 3 1079 #### [facility] [address] [place] [address], [place] Phencyclidine Ql (U) Negative Normal NEGATIVE [facility] Comment on above: Order Comment: No: D o not add to previous draw Performed By: #### 3 1079 #### [facility] [address] [place] [address], [place] PROPOXYPHENE Negative Normal NEGATIVE [facility] Comment on above: Order Comment: No: D o not add to previous draw Performed By: #### 3 1079 #### [facility] [address] [place] [address], [place] TRICYCLICS Negative Normal NEGATIVE [facility] Comment on above: Order Comment: No: D o not add to previous draw Performed By: #### 3 1079 #### [facility] [address] [place] [address], [place] Vital Signs Date Time Vital Sign Value Performing Clinician Tonya lorenz 05-28-2024 11:50-0400 Body height 154.94 cm Kimberly Botello MD Work Phone: [facility] 05-28-2024 11:50-0400 Body weight 96.61 kg Kimberly Botello MD Work Phone: [facility] 04-29-2024 15:27-0500 Body height 154.94 cm [facility] 04-29-2024 15:27-0500 Body mass index (BMI) [Ratio] 40.4 kg/m2 [facility] 04-29-2024 15:27-0500 Body weight 97.06 kg [facility] 04-29-2024 15:27-0500 Diastolic blood pressure 96 mm[Hg] [facility] 04-29-2024 15:27-0500 Heart rate 72 /min [facility] 04-29-2024 15:27-0500 Systolic blood pressure 148 mm[Hg] [facility] 12-11-2023 15:49-0400 Body height 154.94 cm [facility] 12-11-2023 15:49-0400 Body mass index (BMI) [Ratio] 39.1 kg/m2 [facility] 12-11-2023 15:49-0400 Body weight 93.89 kg [facility] 12-11-2023 15:49-0400 Diastolic blood pressure 89 mm[Hg] [facility] 12-11-2023 15:49-0400 Heart rate 67 /min [facility] 12-11-2023 15:49-0400 Systolic blood pressure 146 mm[Hg] [facility] Encounters Encounter Date Encounter Type Care Provider Facility Start: 07-08-2024 Non-patient / Non-visit Kimberly Botello MD Work Phone: [facility] Work Phone: Start: 07-06-2024 Non-patient / Non-visit Kimberly Botello MD Work Phone: [facility] Work Phone: Start: 06-10-2024 Non-patient / Non-visit Kimberly Botello MD Work Phone: [facility] Work Phone: Start: 06-07-2024 Non-patient / Non-visit Kimberly Botello MD Work Phone: [facility] Work Phone: Start: 05-28-2024 End: 05-28-2024 ambulatory Carrie L Ly Facility:[facility] Start: 05-28-2024 End: 05-28-2024 Departed Referred Kimberly Botello MD Work Phone: [facility] Work Phone: Start: 04-29-2024 End: 04-29-[address] [facility] Work Phone: Start: 04-29-2024 End: 04-29-2024 Patient encounter procedure [facility] Work Phone: Start: 02-12-2024 Non-patient / Non-visit [facility] Work Phone: Start: 12-11-2023 Patient encounter status [facility] Start: 12-11-2023 End: 12-11-[address] [facility] Work Phone: Start: 12-11-2023 End: 12-11-2023 Encounter for general adult medical examination without abnormal findings [facility] Start: 12-11-2023 End: 12-11-2023 Patient encounter procedure [facility] Work Phone: Start: 02-07-2023 End: 02-07-2023 ambulatory Kimberly Botello Other [facility] [employer] Other Start: 02-07-2023 Telephone encounter Kimberly ROBLES [facility] Start: 01-23-2023 (Televisit) Televisit Kimberly Moscoso [facility] Start: 01-23-2023 End: 01-23-2023 ambulatory Kimberly Botello Other [employer] Other Start: 05-10-2022 End: 05-10-[address] MELLISSA BAILEY . Facility:[facility] Start: 05-21-2021 End: 05-22-[address] KIMBERLY BOTELLO Facility:[facility] Start: 03-25-2021 Adult health examination Kimberly Botello Other [employer] Other Start: 03-25-2021 Problem, abnormal examination Kimberly Botello Other [employer] Other Start: 05-07-2020 End: 05-07-2020 Patient encounter procedure External Provider [facility] Start: 05-07-2020 Results Only External Provider [facility] Start: 11-17-2018 End: 11-21-2018 Evaluation and management of inpatient CRISTINA PAT Facility:[facility] Procedures Date Procedure Procedure Detail Performing Clinician Start: 05-07-2020 End: 05-07-2020 EXTERNAL LAB External Provider Screening for malign ant neoplasm of breast Kimberly Botello Other Plan of Treatment Date Care Activity Detail Author Start: 04-29-2024 Patient referral [facility] Work Phone: Patient Education Back Flexion Strengthening Exercises [facility] Work Phone: Patient referral [facility] Work Phone: XR Lumbar spine 2 or 3 Views [facility] Immunizations Immunization Date Immunization Notes Care Provider Fa cili 01-10-2018 influenza virus vaccine, split virus (incl. purified surface antigen) Kimberly Botello Other [employer] Other 01-10-2018 influenza virus vaccine, unspecified formulation [facility] Payers Date Payer Category Payer Self-pay [id number] 2020 Unknown MMO MMO [employer] [id number] 2020-Present PPO [id number] 1980 Unknown [id number] 1978 Unknown [id number] 1978 Unknown [id number] 1959 Unknown [id number] Private Health Insurance [employer] [id number] Private Health Insurance [facility] [id number] Unknown [id number] Social History Date Type Detail Facility Tobacco smoking status NHIS Unknown if ever smoked [facility] Start: 1980 Sex Assigned At Not on file [facility] Sex Assigned At Sex Assigned At [employer] Other Start: 05-30-2023 End: 05-28-2024 Tobacco smoking status NHIS Never smoked tobacco (finding) [facility] Start: 1980 Sex Assigned At Female [facility] Start: 04-29-2024 End: 07-30-2024 Sex Female (finding) [facility] NEGATED: Highlighted row [facility] Clinical Notes 05-13-2020 to 01-23-2023 Note [...] of diseases classified elsewhere (ICD-10 - B96.89) [employer] Other 05-03-2021 NoteHNO ID: [id number] Author: Cat Fofana RD Service: ? Author Type: Registered Dietitian Type: Progress Notes Filed: 07/20/2020 12:50 PM Note Text: 12:01- Called pt at this time for scheduled phone appointment. No answer, left message for patient with provider contact information. Cat Fofana RDN, [facility] NoteEducation (NUTRSA) EVELINE PLATT ([id number]) 1980 F Date Time Provider Department 07/20/20 12:00 PM CAT FOFANA Reason for Visit: Nutrition Telephone [2013] Progress Notes: Cat Fofana RD 07/20/2020 12:50 PM Signed 12:01- Called pt at this time for scheduled phone appointment. No answer, left message for patient with provider contact information. Cat Fofana RDN, GHADA During your visit today, we recorded the [...] * Encounter Status:Closed by CAT FOFANA on 07/20/20[facility]04-12[facility]20[facility] NoteEducation (NUTRSA) EVELINE PLATT ([id number]) 1980 F Date Time Provider Department 06/29/20 12:00 PM CAT FOFANA (ASIF) NUTR Reason for Visit: Nutrition Telephone [2013] Progress Notes: Cat Fofana RD 06/30/2020 9:24 [...] 4 course- meat/pot/corn/non-starchy vegetable Snack(s): evening snacker- 9-380p something sweet Fluids: 3-24 oz water during [...] reading -ok to use gama such as Ventive or LoseIt to take caloric intake if desired -call [...] Estimated kilocalorie needs: 1854 kilocalories determined by [place] x 1.2 Estimated protein needs: 75-94 [...] nutrition counseling for obesity. 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 Author Type: [...] 4 course- meat/pot/corn/non-starchy vegetable Snack(s): evening snacker- 9-970p something sweet Fluids: 3-24 oz water during the day. At home 48oz water. Nutrition Diagnosis: Problem, Etiology and Signs/Symptoms: Overweight/Obesity related to excessive energy intake as evidenced by BMI 39.2. Nutrition Intervention: -aim for 3 meals + snack if needed -use [employer] plate for dinner -ok to use meal replacement for lunch -ok to have snack of 1 CHO + Pro for breakfast -continue drinking at least 64 oz non-caffeine containing beverages -begin label reading -ok to use gama such as Ventive or ReviverMx to take caloric intake if desired -call [...] Estimated kilocalorie needs: 1854 kilocalories determined by [place] x 1.2 Estimated protein needs: 75-94 [...] nutrition counseling for obesity. 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 [facility]04-07-2021 NoteHNO ID: [id number] Author: Blake Patel Service: ? Author Type: Physician Type: Progress Notes Filed: 06/25/2020 6:20 AM Note Text: NAME: Platt, Eveline [facility] NO.: [id number] DATE OF SERVICE: June 24, 2020 Some [...] heavy menses. 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 Per HPI and [...] 25 Protein, Total (g/ (more content not included)...[facility] 05-13-2020 NoteHNO ID: [id number] Author: Blake Patel Service: ? Author Type: Physician Type: Progress Notes Filed: 05/13/2020 12:21 PM Note Text: NAME: Eveline Platt CLINIC NO.: [id number] DATE OF SERVICE: May 13, 2020 Referring [...] heavy menses. 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 Per HPI and [...] diagnosis) Plan: CBC + DIFF (FOR REMOTE [facility] USE), COMP METABOLIC PANEL, FERRITIN BLD, IRON [...] Mother Brain tumor Blake Patel MD, CPE [facility] [place], [place] CC: Kimberly Botello MD ([facility] [facility]) [address] [place] [id number] noteNo Information [facility] [employer] Other Evaluation note* Diagnosis Onset Date Resolution Status DDD (degenerative disc disease), lumbar acute SI joint arthritis acute Wellness examination acute [facility] Work Phone: Evaluation note* Diagnosis Onset Date Resolution Status Admit Date Colon cancer screening acute Fe bruary 2024 3:26pm Gastro-esophageal reflux disease without esophagitis acute Febr uary 2024 3:26pm [facility] Work Phone: Evaluation noteNo assessment information available [facility] Work Phone: History general Narrative - Reported* Type Description Date Medical History DDD LUMBAR ARTHRITIS Medical History GERD Medical History BOWEL ADHESIONS Medical History UTERINE AND VAGINAL POLYPS Medical History hypertension Surgical History D&C Surgical History CERVICAL AND UTERINE POLYPS Surgical History OVARIAN CYST/BOWELS RELEASED FO R UTERUS Surgical History oophorectomy Surgical History knee surgery Hospitalization History see above [employer] Other Hospital Discharge instructionsAmbulatory Orders* Referral to Gastroenterology Location: None Selected [facility] Work Phone: Summary Purpose Family History Relationship Condition Age at Onset Recorded Date/T laurita father Hypertension Unknown Diabetes mellitus Unknown Advance Directives Advance Directive Response Recorded Date/ Time Advance Directives No August 25 0 9:06am Advance Directive Response Recorded Date/ Time Advance Directives No August 25 0 8:06am Hospital Course Note MR#: [id number] [facility] Pt. Name: Eveline Platt Admitted: 11/17/2018 Discharged: [...] a pleasant 38-year-old female, who presented to [facility] on account of left acute visual loss and the patient was brought to the [facility] for further evaluation and management. Has had an extensive evaluation done including ESR, which is normal along (more content not included)... Note [facility] SURGERY Clinical Discharge Summary PERSON INFORMATION Name EVELINE PLATT Age 38 Years 1980 Sex FEMALE Language [place] PCP Rosmery ALVA, Kimberly Peñaloza Marital Status Med Service Ambulatory Surgery Acct# Arrival 01/15/2019 08:48:00 Visit Reason SURGERY-RIGHT SALPINGO-OOPHORECTOMY AND DIAGNOSTIC LAPAROSCOPY Acuity LOS 043 00:30 Address: [address] [place] [address] Comment: PROVIDER INFORMATION VITALS INFORMATION Vital Sign Triage Latest Temp Oral Temp Temporal Temp Intravascular Temp Axillary Temp Rectal 02 Sat 100 % 100 % Respiratory Rate Peripheral Pulse Rate Apical Heart Rate Blood Pressure / 93 mmHg / 81 mmHg Comment: MEDICAL INFORMATION Allergy Info: No known allergies Prescriptions Given: acetaminophen-hydrocodone (Deary 5 mg-325 mg oral tablet) 1 tab(s) Oral Every 6 hours as needed for pain. may take 1 or 2 tablets not to exceed 8 tablets/day. Refills: 0. ibuprofen (ibuprofen 600 mg oral tablet) 1 tab(s) Oral (more content not included)... Note Patient: EVELINE PLATT MR N: [id number] Age: 38 years Sex: FEMALE : 1980 [...] disease without esophagitis April 29, 2024 3:26pm Chief Complaint Admit Date Screening May 28, 2024 2:0 0pm Amb Documentation June 10, 2024 10: 25am Amb Documentation July 08, 2024 1:4 4pm Additional Source Comments INFORMATION SOURCE (unrecogn ized section and content) DATE CREATED AUTHOR 12/10/2018 [facility] DATE CREATED AUTHOR AUTHOR'S ORGANIZ ATION 01/22/2019 [facility] DATE CREATED AUTHOR AUTHOR'S ORGANIZ ATION 04/16/2021 [facility] DATE CREATED AUTHOR AUTHOR'S ORGANIZ ATION 05/13/2022 [facility] DATE CREATED AUTHOR AUTHOR'S ORGANIZ ATION 07/31/2024 [facility] Source Comments (unrecognize d section and content) In the event this informatio n is protected by the Federal Confidentiality of Alcohol and Drug Abuse Patient Records regulations: The Federal rules restrict any use of the information to criminally investigate or prosecute any alcohol or drug abuse patient.[facility] the event this information is protected by the Federal Confidentiality of Alcohol and Drug Abuse Patient Records regulations: The Federal rules restrict any use of the information to criminally investigate or prosecute any alcohol or drug abuse patient.[facility] Hospital[facility] the event this information is protected by the Federal Confidentiality of Alcohol and Drug Abuse Patient Records regulations: The Federal rules restrict any use of the information to criminally investigate or prosecute any alcohol or drug abuse patient.[facility] Hospital[facility] the event this information is protected by the Federal Confidentiality of Alcohol and Drug Abuse Patient Records regulations: The Federal rules restrict any use of the information to criminally investigate or prosecute any alcohol or drug abuse patient.[facility] REASON FOR VISIT (unrecogniz ed section and content) Cough- [phone] Care Teams (unrecognized sec tion and content) Team Status: Active Member Role Status Dates Kimberly E Botello , MD Primary Care Provider Active Team Status: Inactive Member Role Status Dates Kimberly Botello MD Primary Care Provider Active Start: May 28, 2024 End: May 28, 2024 Carrie Pope DO Attending Provider Active St art: May 28, 2024 End: May 28, 2024 Team Status: Active Member Role Status Dates Kimberly Botello MD Primary Care Provider Active Start: June 07, 2024 Renuka Diamond PA-C Attending Provider Active Start : June 07, 2024 Team Status: Active Member Role Status Dates Kimberly Botello MD Primary Care Provider Active Start: June 10, 2024 Carrie Schwartz CMA Attending Provider Active Start: June 10, 2024 Team Status: Active Member Role Status Dates Kimberly Botello MD Primary Care Provider Active Start: July 06, 2024 Bryan Price MD Attending Provider Active St art: July 06, 2024 Team Status: Active Member Role Status Dates Kimberly Botello MD Primary Care Provider Active Start: July 08, 2024 Carrie Schwartz CMA Attending Provider Active Start: July 08, 2024 Team Status: Active Member Role Status [...] 2024 End: April 29, 2024 Team Status: Inactive Member Role Status Dates Kimberly Botello MD Primary Care Provide r, Attending Provider Active Start: December 11, 2023 End: December 11, 2023 Team Status: Inactive Member Role Status Dates Kimberly Botello MD Primary Care Provider Active Start: May 28, 2024 End: May 28, 2024 Carrie Pope DO Attending Provider Active St art: May 28, 2024 End: May 28, 2024 Team Status: Active Member Role Status Dates Kimberly Botello MD Primary Care Provider Active Start: June 07, 2024 Renuka Diamond PA-C Attending Provider Active Start : June 07, 2024 Team Status: Active Member Role Status Dates Kimberly Botello MD Primary Care Provider Active Start: June 10, 2024 Carrie Schwartz CMA Attending Provider Active Start: June 10, 2024 Team Status: Active Member Role Status Dates Kimberly Botello MD Primary Care Provider Active Start: July 06, 2024 Bryan Price MD Attending Provider Active St art: July 06, 2024 Team Status: Active Member Role Status Dates Kimberly Botello MD Primary Care Provider Active Start: July 08, 2024 Carrie Schwartz CMA Attending Provider Active Start: July 08, 2024 Goals (unrecognized section and content) Goals [...] BE BASED ON THE PRIMARY CLINICAL RECORDS. [facility] provides no warranty or guarantee of the accuracy or completeness of information in this document.
[2024-09-07 08:23] LABS: Basophils Percent Auto 0.4 % (0.2-2.0); Eosinophils Absolute Auto 0.2 10^3/uL (0.0-0.7); Eosinophils Percent Auto 2.3 % (0.9-7.0); Hematocrit 40.8 % (36.0-48.0); Hemoglobin 14.1 g/dL (12.0-16.0); Immature Granulocytes Abs Auto 0.03 10^3/uL (0.00-0.03); Immature Granulocytes Pct Auto 0.4 % (0.0-0.5); Lymphocytes Absolute Auto 1.6 10^3/uL (1.2-3.8); Lymphocytes Percent Auto 23.1 % (20.5-60.0); Mean Corpuscular HGB Conc 34.6 g/dL (29.9-35.2); Mean Corpuscular Hemoglobin 31.8 pg (26.7-34.0); Mean Corpuscular Volume 92.1 fL (81.0-99.0); Mean Platelet Volume 10.9 fL (9.5-13.5); Monocytes Absolute Auto 0.6 10^3/uL (0.3-0.8); Monocytes Percent Auto 8.3 % (1.7-12.0); Neutrophils Absolute Auto 4.5 10^3/uL (1.4-6.5); Neutrophils Percent Auto 65.5 % (43.0-75.0); Platelet Count 265 10^3/uL (150-450); Red Blood Count 4.43 10^6/uL (4.20-5.40); Red Cell Distribution Width 11.4 % (11.0-15.0); White Blood Count 6.8 10^3/uL (4.0-11.0)
--- NOTE | 2024-09-07 08:35 | XR_ITS ---
The [address] [address] Patient Name: ELIEZER BUTLER MRN: [id number] date: 1980 Sex: F Assigned Patient Location: LAB Current Patient Location: LAB Accession/Order Number: [id number] Exam Date: 09/09/2024 07:30 Report Date: 09/09/2024 07:41 At the request of: MIRANDA BOTELLO MD Procedure: XR cervical spine 5V LUMBAR SPINE - 2 views COMPARISON: CT 07/06/2024 CLINICAL DATA: Low back pain with radiation to the right hip. AP and lateral views were obtained. There is levoscoliotic curvature. No acute compression fractures are visualized. No significant displacement is seen. Slight disc space narrowing is visualized at L1-2 and L4-5. End plate spurring and lower lumbar facet hypertrophy are noted. The SI joints show mild sclerosis. No paraspinal soft tissue abnormalities are seen. XR/XR lumbar spine 2-3V IMPRESSION: SCOLIOSIS AND DEGENERATIVE CHANGES. CERVICAL SPINE - 5 views COMPARISON: None CLINICAL DATA: Superior neck pain with radiation to the shoulders and numbness at the left arm for the past week. No reported injury. AP, lateral, both oblique and odontoid views were obtained. No acute compression fractures are identified. Is minimal retrolisthesis of C5 on C6 and C6 on C7. There is space are maintained. There is mild endplate spurring and minor facet disease. The neural foramen on the right are patent. On the left, there may be bony foraminal encroachment at C5-6. The atlantoaxial relationship is maintained. No prevertebral soft tissue swelling is seen. IMPRESSION: MILD DEGENERATIVE CHANGES. Impression dictated by: Anai Blanco M.D. 09/09/2024 7:41 AM Dictation Location: [place] [address] Electronically authenticated by: [id number] Y Date: 09/09/2024 07:41
--- NOTE | 2024-09-07 08:35 | XR_ITS ---
The [address] [address] Patient Name: ELIEZER BUTLER MRN: [id number] date: 1980 Sex: F Assigned Patient Location: LAB Current Patient Location: LAB Accession/Order Number: [id number] Exam Date: 09/09/2024 07:30 Report Date: 09/09/2024 07:41 At the request of: MIRANDA BOTELLO MD Procedure: XR cervical spine 5V LUMBAR SPINE - 2 views COMPARISON: CT 07/06/2024 CLINICAL DATA: Low back pain with radiation to the right hip. AP and lateral views were obtained. There is levoscoliotic curvature. No acute compression fractures are visualized. No significant displacement is seen. Slight disc space narrowing is visualized at L1-2 and L4-5. End plate spurring and lower lumbar facet hypertrophy are noted. The SI joints show mild sclerosis. No paraspinal soft tissue abnormalities are seen. XR/XR cervical spine 5V IMPRESSION: SCOLIOSIS AND DEGENERATIVE CHANGES. CERVICAL SPINE - 5 views COMPARISON: None CLINICAL DATA: Superior neck pain with radiation to the shoulders and numbness at the left arm for the past week. No reported injury. AP, lateral, both oblique and odontoid views were obtained. No acute compression fractures are identified. Is minimal retrolisthesis of C5 on C6 and C6 on C7. There is space are maintained. There is mild endplate spurring and minor facet disease. The neural foramen on the right are patent. On the left, there may be bony foraminal encroachment at C5-6. The atlantoaxial relationship is maintained. No prevertebral soft tissue swelling is seen. IMPRESSION: MILD DEGENERATIVE CHANGES. Impression dictated by: Anai Blanco M.D. 09/09/2024 7:41 AM Dictation Location: [place] [address] Electronically authenticated by: [id number] Y Date: 09/09/2024 07:41
[2024-09-07 08:37] LABS: Erythrocyte Sedimentation Rate 20 mm/hr (<=20)
[2024-09-07 09:05] LABS: Anion Gap 14.9; BUN Creatinine Ratio 22.6; Calcium 8.5 mg/dL (8.5-10.1); Carbon Dioxide 25.6 mmol/L (21.0-32.0); Chloride 101 mmol/L (98-107); Estimated GFR (African America >60 (>=60 mL/min/1.73m^2); Estimated GFR (Non-African Ame >60 (>=60 mL/min/1.73m^2); Glucose 145 mg/dL (74-106); Potassium 3.5 mmol/L (3.5-5.1); Sodium 138 mmol/L (136-145); TSH W/ REFLEX FT4 2.806 uIU/mL (0.358-3.740)
== END 2024-09-07 08:11 | disposition home or self-care (01) ==
LOC: LAB 08:10
PROVIDERS: PCP Family Medicine; Visit Provider Family Medicine
DX: M79.10 Myalgia, unspecified site (principal); M51.369 Other intervertebral disc degeneration, lumbar region without mention of lumbar back pain or lower extremity pain; M54.12 Radiculopathy, cervical region; M41.9 Scoliosis, unspecified
CPT/HCPCS: 36415; 72050; 72100; 80048; 84443; 85025; 85652

== ENCOUNTER 2024-09-12 16:03 | Outpatient (RCR) | payer OTHER, SELFPAY | END 2024-09-13 12:07 | disposition home or self-care (01) | LOC: PT 16:03 | PROVIDERS: PCP Family Medicine; Visit Provider Family Medicine | DX: M54.12 Radiculopathy, cervical region (principal) | CPT/HCPCS: 97012; 97163 ==

== ENCOUNTER 2024-10-24 15:41 | Emergency (ER) | payer OTHER, SELFPAY ==
[2024-10-24] VITALS (19 sets, daily range): BP systolic 130–167; BP diastolic 87–99; PULSE 72–86; TEMP 36.4; O2SAT 93–99; BMI 40.6
--- OUTSIDE RECORDS SUMMARY | 2024-10-24 15:59 | XMS_ITS | Clinical Summary ---
Author Organization [facility] Healthcare Address [address] [place] [address] Care Team Providers Care Diamond Expert Name Role Phone Unavailable Primary Care Provider Unavailabl e Social History Tobacco Use Types Packs/Day Years Used Date Smoking Tobacco: Never Assessed Comments Unknown Sex and Gender Information Value Date Recorded Sex Assigned at Not on file Legal Sex Female 8:24 PM EDT Gender Identity Not on file Sexual Orientation Not on file Last Filed Vital Signs Vital Sign Reading Time Taken Comments Blood Pressure - - Pulse - - Temperature - - Respiratory Rate - - Oxygen Saturation - - Inhaled Oxygen Concentration - - Weight 88 kg (194 lb) 10/27/2017 12:00 PM EDT Height 152.4 cm (5') 10/27/2017 12:00 PM EDT Body Mass Index 37.89 10/27/2017 12:00 PM EDT Plan of Treatment Not on file Insurance [employer]
--- OUTSIDE RECORDS SUMMARY | 2024-10-24 15:59 | XMS_ITS | Clinical Summary ---
Author Organization G5 tem Address [facility] [place] [id number] [address] [place] [address] Care Team Providers Care Stud Master/Mistress Name Role Phone Kimberly Boles MD Primary Care Provider [phone] Allergies No known active allergies Medications metoprolol tartrate (LOPRESSOR) 50 mg tablet Take 50 mg by mouth in the morning. Active IRON, FERROUS SULFATE, ORAL Take by mouth. Active dexlansoprazole (DEXILANT) 60 mg capsule Take by mouth. Active norethindrone (ORTHO MICRONOR) 0.35 mg tabletIndications: Encounter for initial prescription of contraceptive pills Take 1 tablet (0.35 mg total) by mouth in the morning. 28 SOLN 12 2 Active Active Problems Problem Noted Date Diagnosed Date Family history of breast cancer 10/13/2021 Overview (10/13/2021): Two maternal aunts Family history of uterine cancer 10/13/2021 Overview (10/13/2021): Maternal grandmother and maternal aunt Migraine without aura 10/13/2021 Overview (10/13/2021): Neuro consult placed Urinary incontinence 10/13/2021 Overview (10/13/2021): Pelvic floor therapy ordered Iron deficiency anemia due to chronic blood loss 05/13/2020 Family History Medical History Relation Name Comments Diabetes Father Glaucoma Father Hypertension Father Breast cancer Maternal Aunt 1 Breast cancer Maternal Aunt 2 Bone cancer Maternal Grandfather Diabetes Maternal Grandmother Hypertension Maternal Grandmother Uterine cancer Maternal Grandmother Brain Tumor Mother Cataracts Mother Stomach cancer Paternal Grandfather Diabetes Paternal Grandmother Macular degeneration Neg Hx Relation Name Status Comments Brother Father Maternal Aunt 1 Alive Maternal Aunt 2 Alive Maternal Grandfather Maternal Grandmother Mother Paternal Grandfather Paternal Grandmother Social History Tobacco Use Types Packs/Day Years Used Date Smoking Tobacco: Former Smokeless Tobacco: Never Alcohol Use Standard Drinks/Week Comments Not Currently 0 (1 standard drink = 0.6 oz pur e alcohol) Childcare Answer Date Recorded Childcare Unknown 08/29/2018 Employment Answer Date Recorded Employment Unknown 08/29/2018 Purpose - Life Answer Date Recorded Purpose and direction in life Unknown Comments No Sex and Gender Information Value Date Recorded Sex Assigned at Not on file Legal Sex Female 11:57 AM EDT Gender Identity Not on file Sexual Orientation Not on file Last Filed Vital Signs Vital Sign Reading Time Taken Comments Blood Pressure 142/96 10/13/2021 11:16 AM EDT Pulse 82 04/26/2017 2:09 PM EST Temperature 37 C (98.6 F) 04/26/2017 2:09 PM EST Respiratory Rate 16 04/26/2017 2:09 PM EST Oxygen Saturation 100% 04/26/2017 2:09 PM EST Inhaled Oxygen Concentration - - Weight 94.2 kg (207 lb 9.6 oz) 10/13/2021 11:16 AM EDT Height 157.5 cm (5' 2 ) 10/13/2021 11:16 AM EDT Body Mass Index 37.97 10/13/2021 11:16 AM EDT Plan of Treatment Health Maintenance Due Date Last Done Comments Depression Screening 1990 Tobacco Screening 1990 DTaP,Tdap and Td Vaccines (2 - Td or Tdap) 09/05/2022 09/05/2012 Adult BMI Screening 10/13/2022 10/13/2021 Pap Smear 10/13/2024 10/13/2021, 10/13/2021 Influenza Vaccine 11/18/2024 01/10/2018, 02/02/2016 Medical Devices Not on file Procedures Procedure Name Priority Date/Time Associated Diagnosis Comments HIGH RISK HPV W/MYKE Routine 10/13/2021 7:38 AM EDT from Last 3 Months or Most Recently Relevant to Health Maintenance Results * High risk HPV w/myke (10/13/2021 7:38 AM EDT) Hpv specimen type ThinPrep 10/14/2021 7:39 AM EDT [facility] Hpv 16 Negative Negative^N egative 10/15/2021 2:01 PM EDT [facility] Hpv 18 Negative Negative^N egative 10/15/2021 2:01 PM EDT [facility] Other high risk hpv Negative Negative^N egative 10/15/2021 2:01 PM EDT [facility] Comment: HPV types 31,33,35,39,45,52,56,58,59,66 and 68 DNA were undetectable. THINP 10/13/2021 7:38 AM EDT 10/14/2021 7:38 AM EDT us Shannan Méndez PATHOLOGY TECHNICIAN-HOME HELP AIDE LAB BLOOD ORDERABLES Fin al Result [facility] [address] [place] [address] from Last 3 Months or Most Recently Relevant to Health Maintenance Care Teams Stud Master/Mistress Relationship Specialty Start Date End Date Kimberly Boles MD [address] [place] [address] PCP - General 04/26/17
--- OUTSIDE RECORDS SUMMARY | 2024-10-24 15:59 | XMS_ITS | Clinical Summary ---
Author Organization [facility] Address [address] [place] [address] Care Team Providers Care Cafeteria Team Leader Name Role Phone Kimberly Boles MD Primary Care Provider [phone] Allergies No known active allergies Medications Dexlansoprazole (DEXILANT) 60 mg CpDM Take by mouth. Active metoprolol tartrate, short acting, (LOPRESSOR) 50 mg tablet Take 50 mg by mouth once daily. Active norgestimate 0.25 mg-ethinyl estradiol 35 mcg (SPRINTEC) 0.25-35 mg-mcg per tablet Take 1 tablet by mouth once daily. Active fluticasone propionate (FLONASE NASAL) Use in the nose. Active meclizine (ANTIVERT) 25 mg tab Take 25 mg by mouth three times daily. Active cetirizine-pseud oephedrine (CETIRI-D) 5-120 mg per tablet Take 1 tablet by mouth twice daily. Active ferrous sulfate (IRON ORAL) Take by mouth. Active metoprolol succinate ER (TOPROL XL) 50 mg 24 hr tablet Take 50 mg by mouth once daily. 06/12/[address] (PROTONIX) 40 mg tablet Take 40 mg by mouth. Active Active Problems Problem Noted Date Diagnosed Date Iron deficiency anemia due to chronic blood loss 05/13/2020 Immunizations Immunization Administration Dates Next Due influenza (IIV3) vaccine, tr ivalent, PF (AFLURIA, FLUARIX, FLULAVAL, FLUVIRIN, FLUZONE) 02/02/2016 influenza (ccIIV4) vaccine, age 6+ mo, quadrivalent (FLUCELVAX) 01/10/2018 tetanus diphtheria pertussis (Tdap) vaccine, age 7+ yr (ADACEL, BOOSTRIX) 09/05/2012 Family History Medical History Relation Comments Cancer Mother Brain tumor Relation Status Comments Mother Other Social History Tobacco Use Types Packs/Day Years Used Date Smoking Tobacco: Never Smokeless Tobacco: Never PHQ-2 Answer Date Recorded PHQ-2 score 0 06/24/2020 Area Deprivation Index Answer Date Danis rded National Score (1-100), lower number is lower ri sk Not on file 05/13/2020 State Score (1-10), lower number is lower risk N ot on file 05/13/2020 Data from: https://www.neighborhoodatlas.[facility]/. Last address used for calculation Not on file 05/13/2020 Comments No Sex and Gender Information Value Date Recorded Sex Assigned at Not on file Legal Sex Female 1:15 PM EST Gender Identity Not on file Sexual Orientation Not on file Last Filed Vital Signs Vital Sign Reading Time Taken Comments Blood Pressure 135/68 06/24/2020 2:17 PM EDT Pulse 98 06/24/2020 2:17 PM EDT Temperature 36.3 C (97.4 F) 06/24/2020 2:17 PM EDT Respiratory Rate 16 06/24/2020 2:17 PM EDT Oxygen Saturation 98% 06/24/2020 2:17 PM EDT Inhaled Oxygen Concentration - - Weight 94.1 kg (207 lb 6.4 oz) 06/24/2020 2:17 P M EDT Height 154.9 cm (5' 0.98 ) 06/24/2020 2:17 PM ED T Body Mass Index 39.21 06/24/2020 2:17 PM EDT Plan of Treatment Health Maintenance Due Date Last Done Comments Anxiety Screening 1996 Depression Screening 1996 HIV Screening 1996 Hepatitis C Screening 1996 Hepatitis B Vaccine (1 of 3 - 19+ 3-dose series) 1997 Cervical Cancer Screening 08/22/1999 Mammogram Screening 2018 DTaP,Tdap,Td Vaccine (2 - Td or Tdap) 09/05/2022 CT Colonography 08/22/2023 Cologuard (FIT-DNA) 08/22/2023 Colonoscopy 08/22/2023 Colorectal Cancer Screening 08/22/2023 Diabetes Screening 08/22/2023 06/24/2020, 0 05/13/2020, 04/26/2017 Fecal Occult Blood 08/22/2023 Lipid Screening 08/22/2023 Sigmoidoscopy 08/22/2023 Influenza Vaccine (#1) 2024 01/10/2018, 2015 Procedures Procedure Name Priority Date/Time Associated Diagnosis Comments COMPREHENSIVE METABOLIC PANEL Routine 06/24/2020 1:57 PM EDT Iron deficiency anemia due to chronic blood loss from Last 3 Months or Most Recently Relevant to Health Maintenance Results * (ABNORMAL) COMP METABOLIC PANEL (06/24/2020 1:57 PM EDT) Pathologist [facility] Protein, Total 7.1 6.3 - 8.0 g/dL 06/24/2020 2:54 PM EDT [facility] Albumin 4.5 3.9 - 4.9 g/dL 06/24/2020 2:54 PM EDT [facility] Calcium 9.0 8.5 - 10.2 mg/dL 06/24/2020 2:54 PM EDT [facility] Bilirubin, Total 0.2 0.2 - 1.3 mg/dL 06/24/2020 2:54 PM EDT [facility] Alkaline Phosphatase 86 34 - 123 U/L 06/24/2020 2:54 PM EDT [facility] AST 22 13 - 35 U/L 06/24/2020 2:54 PM EDT [facility] Glucose 101(H) 74 - 99 mg/dL 06/24/2020 2:54 PM EDT [facility] Comment: The [place] Diabetes Association (ADA) provides guidance for cutoff [...] Standards of Medical Care in Diabetes 2016, [place] Diabetes Association. Diabetes Care. 2016.39(Suppl 1). BUN 10 7 - 21 mg/dL 06/24/2020 2:54 PM EDT [facility] Creatinine 0.64 0.58 - 0.96 mg/dL 06/24/2020 2:54 PM EDT [facility] Sodium 138 136 - 144 mmol/L 06/24/2020 2:54 PM EDT [facility] Potassium 3.9 3.7 - 5.1 mmol/L 06/24/2020 2:54 PM EDT [facility] Chloride 106(H) 97 - 105 mmol/L 06/24/2020 2:54 PM EDT [facility] CO2 25 22 - 30 mmol/L 06/24/2020 2:54 PM EDT [facility] Anion Gap 7(L) 9 - 18 mmol/L 06/24/2020 2:54 PM EDT [facility] ALT 27 7 - 38 U/L 06/24/2020 2:54 PM EDT [facility] eGFR- >60 06/24/2020 2:54 PM EDT [facility] eGFR-All Other Races >60 . 06/24/2020 2:54 PM EDT [facility] Comment: eGFR (Estimated GFR) Units of measure: [...] eGFR may not accurately reflect actual GFR. Blood BLOOD SPECIMEN / Unknown 06/24/2020 1:57 PM EDT 06/24/2020 2:14 PM EDT us Blake Bui MD LABORATORY Final Result [facility] [address] [place] [address] [facility] [address] [place], [place] from Last 3 Months or Most Recently Relevant to Health Maintenance Insurance [employer] Care Teams Cafeteria Team Leader Relationship Specialty Start Date End Date Kimberly Boles MD [address] [place] [id number] PCP - General Family Medicine 05/04/20
--- OUTSIDE RECORDS SUMMARY | 2024-10-24 15:59 | XMS_ITS | Encounter Summary ---
Author Organization [facility] Address [facility] [place] [id number] Care Team Providers Care Urinalysis Technician Name Role Phone Kimberly Boles MD Primary Care Provider [phone] Source Comments In the event this information is protected by the Federal Confidentiality of Alcohol and Drug AbusePatient Records regulations: The Federal rules restrict any use of the information to criminally investigate or prosecute any alcohol or drug abuse patient.[facility] Encounter Details Date Type Department Care Team (Latest Contact Info) Description 05/07/2020 H&P External-NonCCF Provider, External, PA-C Do not enter address information under generic External Provider. Social History Tobacco Use Types Packs/Day Years Used Date Smoking Tobacco: Never Assessed Comments Unknown Sex and Gender Information Value Date Recorded Sex Assigned at Not on file Legal Sex Female 1:15 PM EST Gender Identity Not on file Sexual Orientation Not on file documented as of this encounter Plan of Treatment Not on file documented as of this encounter Visit Diagnoses Not on filedocumented in this encounter Care Teams Urinalysis Technician Relationship Specialty Start Date End Date Kimberly Boles MD [address] [place] [address] PCP - General Family Medicine 05/04/20 documented as of this encounter
--- NOTE | 2024-10-24 16:03 | ECG_ITS ---
[facility] Test Date: 2024-10-24 Pat Name: ELIEZER BUTLER Department: Room: - Gender: Female Assistant Business Manager: : 1980 Requested By: [id number] Order Number: [id number] Reading MD: KAYCE EDWARDS M.D. Measurements Intervals [place] Rate: 74 P: 35 IN: 150 QRS: -38 QRSD: 94 T: -5 QT: 408 QTc: 435 Interpretive Statements 1100 Sinus rhythm Nonspecific T-wave abnormality 5233 Voltage criteria for LVH 7200 Abnormal left axis deviation 8003 Consistent with pulmonary disease 9150 abnormal ECG Compared to ECG 06/07/2024 18:43:07 No significant changes Electronically Signed On 10-26-2024 7:32:48 EDT by KAYCE EDWARDS M.D.
--- NOTE | 2024-10-24 16:03 | ED_ITS ---
HPI HPI - General Adult General Chief complaint: Chest Pain Stated complaint: CHEST PAIN SOB Time Seen by Provider: 10/24/24 15:47 Source: patient Mode of arrival: walk-in History of Present Illness Onset (ago): day(s) (6) Location: Reports chest, back and abdomen Exacerbating factors: Reports eating Associated symptoms: Reports chest pain and nausea/vomiting (Nausea without vomiting); Denies cough or fever/chills Treatments prior to arrival: Reports none Related Data Home Medications ?Medication ?Instructions ?Recorded ?Confirmed metoprolol succinate 50 mg 50 mg PO QDAY 12/03/22/10/11 tablet,extended release 24 hr Allergies Allergy/AdvReac Type Severity Reaction Status Date / Time No Known Drug Allergies Allergy Verified 07/06/24 22:42 Opioid HPI Opioid Management Most Recent Opioid Data: Last Pain Scale 7 06/07/24, 19:10 Review of Systems ROS0 Status of ROS 10 or more systems reviewed and unremark able except as noted in history and below Constitutional Denies: fever or chills Eyes Denies: blurry vision Ears, nose, mouth, and throat Reports: difficulty swallowing; Denies: nose bleeds Cardiovascular Reports: chest pain; Denies: edema or swelling of feet/ankles Respiratory Reports: shortness of breath; Denies: cough or coughing up blood Gastrointestinal Reports: abdominal pain and nausea; Denies: vomiting Genitourinary Denies: blood in urine Musculoskeletal Reports: back pain; Denies: extremity swelling Integumentary/Breast Denies: rash Hematologic/Lymphatic Denies: easy bruising Allergic/Immunologic Denies: hives PFSH PFSH Social History Smoking status: Current every day smoker Little interest or pleasure in doing things: not at all Feeling down, depressed, or hopeless: not at all Exam Constitutional Vital Signs, click to edit/add: Last Vital Signs Temp 97.5 F L 10/24/24 15:50 Pulse 76 10/24/24 17:20 Resp 17 10/24/24 17:20 BP 130/87 10/24/24 17:29 Pulse Ox 99 10/24/24 17:20 O2 Del Method Room Air 10/24/24 15:46 Documenting provider has reviewed patient's vital signs: yes Common normals: no apparent distress and oriented x3 Exam limitations: no altered mental status General appearance: cooperative, comfortable and well kempt Orientation/consciousness: Yes awake [facility] Common normals: normocephalic Head and scalp: normal to inspection Face and sinus: normal facial exam General ear: hearing not grossly impaired External ear: external ears normal Eye Common normals: PERRL, EOMs intact bilaterally and conjunctivae normal General eye: normal appearance of both eyes Neck & C-Spine Common normals: full ROM and supple Chest Common normals: inspection of chest normal and palpation of chest normal Respiratory Common normals: normal respiratory effort and clear to auscultation bilaterally Effort & inspection: able to speak in complete sentences Cardio Common normals: regular rate, regular rhythm, S1 normal heart sound, S2 normal heart sound and peripheral pulses 2+ throughout GI Common normals: Normal to inspection, nondistended, normoactive bowel sounds present and non-tender Back & Pelvis Common normals: thoraco-lumbar ROM normal Extremity Common normals: normal to inspection, no calf tenderness and no pedal edema Neuro Common normals: oriented x3 Sensorium/orientation: awake and alert Psych Common normals: mental status grossly normal and thought process normal Course Vital Signs Vital signs: Vital Signs Pulse Rate 77 10/24/24 15:46 Respiratory Rate 16 10/24/24 15:46 Blood Pressure 167/99 H 10/24/24 15:46 Pulse Oximetry 95 10/24/24 15:46 Oxygen Delivery Method Room Air 10/24/24 15:46 Temperature 97.5 F L 10/24/24 15:50 Pulse Rate 76 10/24/24 17:20 Respiratory Rate 17 10/24/24 17:20 Blood Pressure 130/87 10/24/24 17:29 Pulse Oximetry 99 10/24/24 17:20 Oxygen Delivery Method Room Air 10/24/24 15:46 Medical Decision Making [facility] Narrative Medical decision making narrative: Patient presents with chest pain and shortness of breath. She does have history of reflux is not taking Dexilant currently secondary to insurance she has been using Tums with some relief without resolution of her symptoms. She denies any cardiac history denies any history of blood clotting including PE, DVT she denies any hemoptysis denies any unilateral leg swelling denies any steroid use denies any history. Discussed with Dr. Pink evaluated patient okay to discharge home with negative troponins x 2. PERC score is 0. Patient to follow-up with primary care and cardiology. She has not had Prilosec or Pepcid as directed on package for pain or discomfort. Return to if any symptoms worsen or new symptoms well. Differential Diagnosis Differential Diagnosis: Chest pain, Abdominal pain, nauseousness, reflux Lab Data Lab results reviewed: Yes I reviewed the patient's lab results Labs: Lab Results 10/24/24 10/24/24 Range/Units 16:22 17:05 WBC 7.2 (4.0-11.0) 10^3/uL RBC 4.24 (4.20-5.40) 10^6/uL Hgb 13.6 (12.0-16.0) g/dL Hct 39.7 (36.0-48.0) % MCV 93.6 (81.0-99.0) fL MCH 32.1 (26.7-34.0) pg MCHC 34.3 (29.9-35.2) g/dL RDW 11.5 (11.0-15.0) % Plt Count 255 (150-450) 10^3/uL MPV 11.7 (9.5-13.5) fL Neut % (Auto) 62.5 (43.0-75.0) % Lymph % (Auto) 25.0 (20.5-60.0) % [place] % (Auto) 8.4 (1.7-12.0) % Eos % (Auto) 3.2 (0.9-7.0) % Baso % (Auto) 0.3 (0.2-2.0) % Neut # (Auto) 4.5 (1.4-6.5) 10^3/uL Lymph # (Auto) 1.8 (1.2-3.8) 10^3/uL [place] # (Auto) 0.6 (0.3-0.8) 10^3/uL Eos # (Auto) 0.2 (0.0-0.7) 10^3/uL Baso # (Auto) 0.0 (0.0-0.1) 10^3/uL Abs Immat Gran (auto) 0.04 H (0.00-0.03) 10^3/uL Imm/Tot Granulo (auto) 0.6 H (0.0-0.5) % Sodium 139 (136-145) mmol/L Potassium 3.8 (3.5-5.1) mmol/L Chloride 105 (98-107) mmol/L Carbon Dioxide 26.9 (21.0-32.0) mmol/L Anion Gap 10.9 BUN 13.0 (7.0-18.0) mg/dL Creatinine 0.70 (0.55-1.02) mg/dL Est GFR ( Amer) >60 (>=60 mL/min/1.73m^2) Est GFR (Non-Af Amer) >60 (>=60 mL/min/1.73m^2) BUN/Creatinine Ratio 18.6 Glucose 105 (74-106) mg/dL Calcium 9.0 (8.5-10.1) mg/dL Magnesium 2.0 (1.8-2.4) mg/dL Total Bilirubin 0.3 (0.2-1.0) mg/dL AST 34 (15-37) U/L ALT 61 H (14-59) U/L Alkaline Phosphatase 89 (46-116) U/L Troponin I High Sens 4.8 5.2 (4.0-51.3) pg/mL Total Protein 7.6 (6.4-8.2) g/dL Albumin 3.7 (3.4-5.0) g/dL Globulin 3.9 g/dL Albumin/Globulin Ratio 0.9 Lipase 43.0 (16.0-77.0) U/L ECG Data Attestation: I personally reviewed and interpreted this ECG as follows: Interpretation: EKG my interpretation normal sinus rhythm rate 74 bpm FL interval 150 ms QRS 94 ms QTc [address] segment elevation. Discharge Plan Discharge Chief Complaint: Chest Pain Clinical Impression: Nausea Chest pain Qualifiers: Chest pain type: unspecified Qualified Code(s): R07.9 - Chest pain, unspecified Abdominal pain Qualifiers: Abdominal location: epigastric Qualified Code(s): R10.13 - Epigastric pain Patient Disposition: Home, Self-Care Time of Disposition Decision: 17:47 Mode of Transportation: Private Vehicle Prescriptions / Home Meds: No Action metoprolol succinate 50 mg tablet extended release 24 hr 50 mg PO QDAY Print Language: Austrian Additional Instructions: Follow-up with primary care and cardiology. Add Pepcid or Prilosec as directed on packaging for abdominal pain or discomfort. Return to if any symptoms worsen or new symptoms develop. Referrals: [facility] [Other] - As needed Kimberly Boles MD [Primary Care Provider, Family Practice] - 1 week YECENIA FRANCOIS MD [Physician, Cardiology] - As soon as possible
--- NOTE | 2024-10-24 16:03 | XR_ITS ---
[address] [address] Patient Name: ELIEZER BUTLER MRN: [id number] date: 1980 Sex: F Assigned Patient Location: ER Current Patient Location: ER Accession/Order Number: [id number] Exam Date: 10/24/2024 16:39 Report Date: 10/24/2024 16:39 At the request of: JOHN WILLAMS Procedure: XR chest 2V XR chest 2V 10/24/2024 4:32 PM SIGNS AND SYMPTOMS: ^cp PROTOCOL: Frontal and lateral radiograph of the chest COMPARISON: 06/07/2024 FINDINGS: The trachea is midline. The heart and mediastinal structures are within normal limits. The lung parenchyma is clear. The bony thorax is intact. Degenerative changes are present in the thoracic spine and shoulders. XR/XR chest 2V IMPRESSION: No acute cardiopulmonary pathology. Impression dictated by: Gutierrez Elizabeth M.D. 10/24/2024 4:39 PM Dictation Location: [place] [address] Electronically authenticated by: [id number] Y Date: 10/24/2024 16:39
[2024-10-24] MEDS: FAMOTIDINE/PF 20 MG/2 ML VIAL IV (16:23)
[2024-10-24 16:44] LABS: Hematocrit 39.7 % (36.0-48.0); Hemoglobin 13.6 g/dL (12.0-16.0); Immature Granulocytes Abs Auto 0.04 10^3/uL (0.00-0.03); Immature Granulocytes Pct Auto 0.6 % (0.0-0.5); Lymphocytes Absolute Auto 1.8 10^3/uL (1.2-3.8); Mean Corpuscular HGB Conc 34.3 g/dL (29.9-35.2); Mean Corpuscular Hemoglobin 32.1 pg (26.7-34.0); Mean Corpuscular Volume 93.6 fL (81.0-99.0); Platelet Count 255 10^3/uL (150-450); Red Blood Count 4.24 10^6/uL (4.20-5.40); White Blood Count 7.2 10^3/uL (4.0-11.0)
[2024-10-24 17:01] LABS: Alanine Aminotransferase 61 U/L (14-59); Albumin Globulin Ratio 0.9; Albumin Level 3.7 g/dL (3.4-5.0); Alkaline Phosphatase 89 U/L (46-116); Anion Gap 10.9; Aspartate Amino Transferase 34 U/L (15-37); Blood Urea Nitrogen 13.0 mg/dL (7.0-18.0); Calcium 9.0 mg/dL (8.5-10.1); Carbon Dioxide 26.9 mmol/L (21.0-32.0); Chloride 105 mmol/L (98-107); Estimated GFR (African America >60 (>=60 mL/min/1.73m^2); Estimated GFR (Non-African Ame >60 (>=60 mL/min/1.73m^2); Globulin 3.9 g/dL; Glucose 105 mg/dL (74-106); Lipase 43.0 U/L (16.0-77.0); Magnesium 2.0 mg/dL (1.8-2.4); Potassium 3.8 mmol/L (3.5-5.1); Sodium 139 mmol/L (136-145); Total Protein 7.6 g/dL (6.4-8.2)
== END 2024-10-24 17:59 | disposition home or self-care (01) ==
PROVIDERS: Physician Assistant; Emergency Provider Emergency Medicine; PCP Family Medicine
DX: R11.0 Nausea (principal); R07.89 Other chest pain; R06.02 Shortness of breath; R10.13 Epigastric pain
CPT/HCPCS: 36415; 71046; 80053; 83690; 83735; 84484; 85025; 93005; 96374; 99285; J3490

== ENCOUNTER 2024-12-17 17:17 | Emergency (ER) | payer OTHER, SELFPAY ==
[2024-12-17 17:23] VITALS: BP 138/98; PULSE 79; TEMP 36.8; O2SAT 99; BMI 39.3
--- NOTE | 2024-12-17 17:37 | ECG_ITS ---
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 Measurements Intervals [place] Rate: 76 P: 32 CT: 152 QRS: -29 QRSD: 100 T: 0 QT: 406 QTc: 436 Interpretive Statements 1100 Sinus rhythm Nonspecific T-wave abnormality 2440 Incomplete right bundle branch block 5233 Voltage criteria for LVH 7202 Moderate left axis deviation 9150 abnormal ECG Compared to ECG 10/24/2024 15:49:38 No significant changes Electronically Signed On 12-17-2024 20:02:06 EDT by KAYCE EDWARDS M.D.
--- NOTE | 2024-12-17 17:48 | ED.GENADUL1 ---
Documented by User: ЕКАТЕРИНА Perdue 12/18/24 10:20 HPI HPI - General Adult General Chief complaint: Arrhythmia/Palpitations Stated complaint: HEART PALPATATIONS/ EXHAUSTED/ TIRED Time Seen by Provider: 12/17/24 17:37 Source: patient Mode of arrival: walk-in Limitations: no limitations History of Present Illness HPI narrative: Patient is a 44-year-old female with a past medical history of hypertension, GERD, and takes iron pills that presents to the emergency department with complaints of 2 days of heart palpitations. She states that her palpitations are constant but she is intermittently getting chest pain and lightheadedness with them. She has not started on any new medications. She does note that she did just have a period a few weeks ago after not having one for about 7 years. She did see her MAINFRAME SYSTEMS ENGINEER who is working this up further with ultrasound and labs. She has a past surgical history of ovary removal. She does not take any hormones. She states they did test her for and it was negative. She states that she has had heart palpitations in the past and her potassium has been low. She denies any abdominal pain. Related Data Home Medications ?Medication ?Instructions ?Recorded ?Confirmed metoprolol succinate 50 mg 50 mg PO QDAY 12/03/22 12/17/24 tablet,extended release 24 hr dexlansoprazole 60 mg 60 mg PO DAILY 12/17/24 12/17/24 capsule,biphase delayed release Allergies Allergy/AdvReac Type Severity Reaction Status Date / Time No Known Drug Allergies Allergy Verified 07/06/24 22:42 Opioid HPI Opioid Management Most Recent Opioid Data: Last Pain Scale 7 06/07/24, 19:10 Review of Systems ROS Status of ROS 10 or more systems reviewed and unremarkable except as noted in history and below [facility] Social History Smoking status: Current every day smoker Little interest or pleasure in doing things: not at all Feeling down, depressed, or hopeless: not at all Exam Narrative Exam Narrative: General: No distress, age-appropriate Skin: Warm, dry, no pallor. No rash. Head: Normocephalic, atraumatic. Neck: Supple, non-tender. Eye: Pupils are equal, round and EOMI. No scleral icterus. Ears, Nose, Mouth, and Throat: No nasal mucosal hypertrophy. Oral mucosa is moist, no posterior oropharynx erythema, uvula is mid-line Cardiovascular: Regular Rate and Rhythm without murmur, gallop or rub. Respiratory: No accessory muscle use or respiratory distress. Lungs are clear to auscultation, no wheezing, rales or rhonchi Chest Wall: no tenderness Back: No midline thoracic or lumbar vertebral tenderness. Musculoskeletal: Full ROM of all extremities, no calf or popliteal tenderness GI: Abdomen is soft, non-distended, non tender to palpation. No masses appreciated. No rebound, guarding, or rigidity noted. Neurological: A&O x4. No cranial nerve dysfunction observed. No truncal ataxia. Moves all extremities. Sensation intact. Psychiatric: Cooperative and interactive. Normal mood and affect. Constitutional Vital Signs, click to edit/add: Last Vital Signs Temp 98.3 F 12/17/24 17:23 Pulse 79 12/17/24 17:23 Resp 16 12/17/24 17:23 BP 138/98 H 12/17/24 17:23 Pulse Ox 99 12/17/24 17:23 Documenting provider has reviewed patient's vital signs: yes Course Vital Signs Vital signs: Vital Signs Temperature 98.3 F 12/17/24 17:23 Pulse Rate 79 12/17/24 17:23 Respiratory Rate 16 12/17/24 17:23 Blood Pressure 138/98 H 12/17/24 17:23 Pulse Oximetry 99 12/17/24 17:23 Temperature 98.3 F 12/17/24 17:23 Pulse Rate 79 12/17/24 17:23 Respiratory Rate 16 12/17/24 17:23 Blood Pressure 138/98 H 12/17/24 17:23 Pulse Oximetry 99 12/17/24 17:23 Medical Decision Making MDM Narrative Medical decision making narrative: This is a 44-year-old female that presented to the emergency department with 2 days of heart palpitations. She has had an incidence of this before where her potassium was low. She has a past medical history of hypertension, GERD, and takes iron supplementation. She states she will have intermittent chest pain and lightheadedness. She denies any unilateral leg swelling, hemoptysis, hormone use, recent surgery or trauma, or prior PE/DVT. She states a few weeks ago though she did have a period when she had not had one previously in 7 years. She has seen her MAINFRAME SYSTEMS ENGINEER for this and has ultrasound and lab work scheduled. She states they were going to test for her thyroid function. On arrival patient is in no distress, sitting up calmly in the ED cart. Vitals are stable, patient is not tachycardic. 99% O2 saturation on room air. Physical exam is unremarkable. No extremity edema. EKG, chest x-ray, troponin, D-dimer, TSH, CBC, BMP, hCG ordered. EKG on arrival: Sinus rhythm, incomplete right bundle branch block moderate left axis deviation. CXR with no acute process Labs CBC/ BMP wnl, unremarkable D-Dimer: Negative TSH: Wnl Hcg: Neg Trop: Neg Labs and imaging discussed with patient and on re-evaluation she still is in no distress, HR stable on tele during ED course, vitals stable. Plan for discharge to home discussed and patient agrees with plan. Return precautions discussed with patient for any new or worsening symptoms. Patient was discharged from the ED with plan to follow up with PCP and MAINFRAME SYSTEMS ENGINEER for further evaluation and treatment. ATTENDING ADDENDUM: Dr. Sanchez Patient seen and evaluated at bedside with midlevel provider. Agree with plan. Differential Diagnosis Differential Diagnosis: Cardiac arrhythmia, electrolyte imbalance, thyroid dysfunction, anemia Lab Data Lab results reviewed: Yes I reviewed the patient's lab results Labs: Lab Results 12/17/24 Range/Units 17:58 WBC 8.6 (4.0-11.0) 10^3/uL RBC 3.87 L (4.20-5.40) 10^6/uL Hgb 12.4 (12.0-16.0) g/dL Hct 36.3 (36.0-48.0) % MCV 93.8 (81.0-99.0) fL MCH 32.0 (26.7-34.0) pg MCHC 34.2 (29.9-35.2) g/dL RDW 11.8 (11.0-15.0) % Plt Count 248 (150-450) 10^3/uL MPV 11.7 (9.5-13.5) fL Neut % (Auto) 69.5 (43.0-75.0) % Lymph % (Auto) 19.9 L (20.5-60.0) % Letcher % (Auto) 8.8 (1.7-12.0) % Eos % (Auto) 1.0 (0.9-7.0) % Baso % (Auto) 0.3 (0.2-2.0) % Neut # (Auto) 6.0 (1.4-6.5) 10^3/uL Lymph # (Auto) 1.7 (1.2-3.8) 10^3/uL Letcher # (Auto) 0.8 (0.3-0.8) 10^3/uL Eos # (Auto) 0.1 (0.0-0.7) 10^3/uL Baso # (Auto) 0.0 (0.0-0.1) 10^3/uL Abs Immat Gran (auto) 0.04 H (0.00-0.03) 10^3/uL Imm/Tot Granulo (auto) 0.5 (0.0-0.5) % D-Dimer <0.19 (<=0.59) mg/L FEU Sodium 141 (136-145) mmol/L Potassium 3.4 L (3.5-5.1) mmol/L Chloride 104 (98-107) mmol/L Carbon Dioxide 29.0 (21.0-32.0) mmol/L Anion Gap 11.4 BUN 9.0 (7.0-18.0) mg/dL Creatinine 0.70 (0.55-1.02) mg/dL Est GFR ( Amer) >60 (>=60 mL/min/1.73m^2) Est GFR (Non-Af Amer) >60 (>=60 mL/min/1.73m^2) BUN/Creatinine Ratio 12.9 Glucose 121 H (74-106) mg/dL Calcium 8.8 (8.5-10.1) mg/dL Troponin I High Sens 5.5 (4.0-51.3) pg/mL TSH 1.805 (0.358-3.740) uIU/mL Serum HCG, Qual Negative (NEGATIVE) Imaging Data Chest x-ray: Attestation: I have reviewed the pertinent imaging results. Radiologist's impression: ITS Impressions Chest X-Ray 12/17/24 18:09 IMPRESSION: No acute process. Impression dictated by: Jorge Ventura M.D. 12/17/2024 7:18 PM Dictation Location: [employer] Electronically authenticated by: [id number] Y Date: 12/17/2024 19:18 ECG Data Attestation: ?I have reviewed the pertinent ECG results. Discharge Plan Discharge Chief Complaint: Arrhythmia/Palpitations Clinical Impression: Palpitations Chest pain Qualifiers: Chest pain type: unspecified Qualified Code(s): R07.9 - Chest pain, unspecified Patient Disposition: Home, Self-Care Time of Disposition Decision: 18:48 Condition: Good Mode of Transportation: Private Vehicle Prescriptions / Home Meds: No Action metoprolol succinate 50 mg tablet extended release 24 hr 50 mg PO QDAY dexlansoprazole 60 mg capsule,biphase delayed releas 60 mg PO DAILY Print Language: St Helenian Instructions: Heart Palpitations (ED) Referrals: Kimberly Boles MD [Primary Care Provider, Family Practice] - 1 week Discharge Date/Time: 12/17/24 18:53 Documented by User: Reuben Sanchez DO 12/17/24 18:58 HPI HPI - General Adult General Chief complaint: Arrhythmia/Palpitations Stated complaint: HEART PALPATATIONS/ EXHAUSTED/ TIRED Time Seen by Provider: 12/17/24 17:37 Related Data Home Medications ?Medication ?Instructions ?Recorded ?Confirmed metoprolol succinate 50 mg 50 mg PO QDAY 12/03/22 12/17/24 tablet,extended release 24 hr dexlansoprazole 60 mg 60 mg PO DAILY 12/17/24 12/17/24 capsule,biphase delayed release Allergies Allergy/AdvReac Type Severity Reaction Status Date / Time No Known Drug Allergies Allergy Verified 07/06/24 22:42 Opioid HPI Opioid Management Most Recent Opioid Data: Last Pain Scale 7 06/07/24, 19:10 PFSH PFSH Social History Smoking status: Current every day smoker Little interest or pleasure in doing things: not at all Feeling down, depressed, or hopeless: not at all Exam Constitutional Vital Signs, click to edit/add: Last Vital Signs Temp 98.3 F 12/17/24 17:23 Pulse 79 12/17/24 17:23 Resp 16 12/17/24 17:23 BP 138/98 H 12/17/24 17:23 Pulse Ox 99 12/17/24 17:23 Course Vital Signs Vital signs: Vital Signs Temperature 98.3 F 12/17/24 17:23 Pulse Rate 79 12/17/24 17:23 Respiratory Rate 16 12/17/24 17:23 Blood Pressure 138/98 H 12/17/24 17:23 Pulse Oximetry 99 12/17/24 17:23 Temperature 98.3 F 12/17/24 17:23 Pulse Rate 79 12/17/24 17:23 Respiratory Rate 16 12/17/24 17:23 Blood Pressure 138/98 H 12/17/24 17:23 Pulse Oximetry 99 12/17/24 17:23 Medical Decision Making MDM Narrative Medical decision making narrative: This is a 44-year-old female that presented to the emergency department with 2 days of heart palpitations. She has had an incidence of this before where her potassium was low. She has a past medical history of hypertension, GERD, and takes iron supplementation. She states she will have intermittent chest pain and lightheadedness. She denies any unilateral leg swelling, hemoptysis, hormone use, recent surgery or trauma, or prior PE/DVT. She states a few weeks ago though she did have a period when she had not had one previously in 7 years. She has seen her MAINFRAME SYSTEMS ENGINEER for this and has ultrasound and lab work scheduled. She states they were going to test for her thyroid function. On arrival patient is in no distress, sitting up calmly in the ED cart. Vitals are stable, patient is not tachycardic. 99% O2 saturation on room air. Physical exam is unremarkable. No extremity edema. EKG, chest x-ray, troponin, D-dimer, TSH, CBC, BMP, hCG ordered. EKG on arrival: Sinus rhythm, incomplete right bundle branch block moderate left axis deviation. ATTENDING ADDENDUM: Dr. Sanchez Patient seen and evaluated at bedside with midlevel provider. Agree with plan. Lab Data Labs: Lab Results 12/17/24 Range/Units 17:58 WBC 8.6 (4.0-11.0) 10^3/uL RBC 3.87 L (4.20-5.40) 10^6/uL Hgb 12.4 (12.0-16.0) g/dL Hct 36.3 (36.0-48.0) % MCV 93.8 (81.0-99.0) fL MCH 32.0 (26.7-34.0) pg MCHC 34.2 (29.9-35.2) g/dL RDW 11.8 (11.0-15.0) % Plt Count 248 (150-450) 10^3/uL MPV 11.7 (9.5-13.5) fL Neut % (Auto) 69.5 (43.0-75.0) % Lymph % (Auto) 19.9 L (20.5-60.0) % Letcher % (Auto) 8.8 (1.7-12.0) % Eos % (Auto) 1.0 (0.9-7.0) % Baso % (Auto) 0.3 (0.2-2.0) % Neut # (Auto) 6.0 (1.4-6.5) 10^3/uL Lymph # (Auto) 1.7 (1.2-3.8) 10^3/uL Letcher # (Auto) 0.8 (0.3-0.8) 10^3/uL Eos # (Auto) 0.1 (0.0-0.7) 10^3/uL Baso # (Auto) 0.0 (0.0-0.1) 10^3/uL Abs Immat Gran (auto) 0.04 H (0.00-0.03) 10^3/uL Imm/Tot Granulo (auto) 0.5 (0.0-0.5) % D-Dimer <0.19 (<=0.59) mg/L FEU Sodium 141 (136-145) mmol/L Potassium 3.4 L (3.5-5.1) mmol/L Chloride 104 (98-107) mmol/L Carbon Dioxide 29.0 (21.0-32.0) mmol/L Anion Gap 11.4 BUN 9.0 (7.0-18.0) mg/dL Creatinine 0.70 (0.55-1.02) mg/dL Est GFR ( Amer) >60 (>=60 mL/min/1.73m^2) Est GFR (Non-Af Amer) >60 (>=60 mL/min/1.73m^2) BUN/Creatinine Ratio 12.9 Glucose 121 H (74-106) mg/dL Calcium 8.8 (8.5-10.1) mg/dL Troponin I High Sens 5.5 (4.0-51.3) pg/mL TSH 1.805 (0.358-3.740) uIU/mL Serum HCG, Qual Negative (NEGATIVE) Imaging Data Chest x-ray: Radiologist's impression: ITS Impressions Chest X-Ray 12/17/24 18:09 IMPRESSION: No acute process. Impression dictated by: Jorge Ventura M.D. 12/17/2024 7:18 PM Dictation Location: [employer] Electronically authenticated by: [id number] Y Date: 12/17/2024 19:18 Discharge Plan Discharge Chief Complaint: Arrhythmia/Palpitations Clinical Impression: Palpitations Chest pain Qualifiers: Chest pain type: unspecified Qualified Code(s): R07.9 - Chest pain, unspecified Patient Disposition: Home, Self-Care Time of Disposition Decision: 18:48 Condition: Good Mode of Transportation: Private Vehicle Prescriptions / Home Meds: No Action metoprolol succinate 50 mg tablet extended release 24 hr 50 mg PO QDAY dexlansoprazole 60 mg capsule,biphase delayed releas 60 mg PO DAILY Print Language: St Helenian Instructions: Heart Palpitations (ED) Referrals: Kimberly Boles MD [Primary Care Provider, Family Practice] - 1 week Discharge Date/Time: 12/17/24 18:53
[2024-12-17 18:08] LABS: Hematocrit 36.3 % (36.0-48.0); Hemoglobin 12.4 g/dL (12.0-16.0); Immature Granulocytes Abs Auto 0.04 10^3/uL (0.00-0.03); Immature Granulocytes Pct Auto 0.5 % (0.0-0.5); Lymphocytes Absolute Auto 1.7 10^3/uL (1.2-3.8); Mean Corpuscular HGB Conc 34.2 g/dL (29.9-35.2); Mean Corpuscular Hemoglobin 32.0 pg (26.7-34.0); Mean Corpuscular Volume 93.8 fL (81.0-99.0); Platelet Count 248 10^3/uL (150-450); Red Blood Count 3.87 10^6/uL (4.20-5.40); White Blood Count 8.6 10^3/uL (4.0-11.0)
--- NOTE | 2024-12-17 18:09 | XR_ITS ---
[place] [id number] Patient Name: ELIEZER BUTLER MRN: [id number] date: 1980 Sex: F Assigned Patient Location: ER Current Patient Location: ED.MAIN Accession/Order Number: [id number] Exam Date: 12/17/2024 18:00 Report Date: 12/17/2024 19:18 At the request of: HARESH WILLAMS Procedure: XR chest 1V Plain film chest single view HISTORY: Heart palpitations for 2 days COMPARISON: 10/24/2024 FINDINGS: SUPPORT DEVICES: None POSTSURGICAL CHANGES: None HEART: Within normal limits PULMONARY AMBAR: Within normal limits MEDIASTINUM: Unremarkable LUNGS AND PLEURA: No acute lung process, pleural effusion or pneumothorax identified. BONY STRUCTURES: Intact ADDITIONAL FINDINGS None XR/XR chest 1V IMPRESSION: No acute process. Impression dictated by: Jorge Ventura M.D. 12/17/2024 7:18 PM Dictation Location: [employer] Electronically authenticated by: [id number] Y Date: 12/17/2024 19:18
[2024-12-17 18:32] LABS: Anion Gap 11.4; Blood Urea Nitrogen 9.0 mg/dL (7.0-18.0); Calcium 8.8 mg/dL (8.5-10.1); Carbon Dioxide 29.0 mmol/L (21.0-32.0); Chloride 104 mmol/L (98-107); Estimated GFR (African America >60 (>=60 mL/min/1.73m^2); Estimated GFR (Non-African Ame >60 (>=60 mL/min/1.73m^2); Glucose 121 mg/dL (74-106); Potassium 3.4 mmol/L (3.5-5.1); Sodium 141 mmol/L (136-145); Thyroid Stimulating Hormone 1.805 uIU/mL (0.358-3.740)
== END 2024-12-17 18:53 | disposition home or self-care (01) ==
PROVIDERS: Physician Assistant; Emergency Provider Student in an Organized Health Care Education/Training Program; PCP Family Medicine
DX: R00.2 Palpitations (principal); R07.9 Chest pain, unspecified; I10 Essential (primary) hypertension; K21.9 Gastro-esophageal reflux disease without esophagitis; Z90.721 Acquired absence of ovaries, unilateral; F17.200 Nicotine dependence, unspecified, uncomplicated
CPT/HCPCS: 36415; 71045; 80048; 84443; 84484; 84703; 85025; 85378; 93005; 99285

== ENCOUNTER 2025-02-03 07:10 | Outpatient (OUT) | payer OTHER, SELFPAY ==
--- OUTSIDE RECORDS SUMMARY | 2025-01-20 07:43 | XMS_ITS | Encounter Summary ---
Author Organization [employer] s tem Address [id number] [address] [place] [address] Care Team Providers Care Business Support Assistant Name Role Phone Kimberly Boles MD Primary Care Provider [phone] Reason for Referral * Diagnostic Imaging (Routine) - ClosedSpecialtyDiagnoses / ProceduresReferred By ContactReferred To ContactRadiology Diagnoses Menorrhagia with irregular cycle Uterine leiomyoma, unspecified location Abnormal pelvic ultrasound Abnormal uterine bleeding (AUB) Procedures MR pelvis with and without contrast Shannan Méndez, IZABELA-MADISON [address] [place] [address] Phone: tel: fax: Referral IDStatusReasonStart DateExpiration DateVisits RequestedVisits [id number]/9/202510/9/202611 Reason for Visit * Diagnostic Imaging (Routine) - ClosedSpecialtyDiagnoses / ProceduresReferred By ContactReferred To ContactRadiology Diagnoses Menorrhagia with irregular cycle Uterine leiomyoma, unspecified location Abnormal pelvic ultrasound Abnormal uterine bleeding (AUB) Procedures MR pelvis with and without contrast Shannan Méndez APRN-MADISON [address] [place] [address] Phone: tel: fax: Referral IDStatusReasonStart DateExpiration DateVisits RequestedVisits [id number]/9/202510/9/202611 Encounter Details DateTypeDepartmentCare Team (Latest Contact Info)Vvnfqqmxpbe87/03/2025 7:43 AM EST - 01/20/2025 11:59 PM ESTHospital Encounter [facility] [address] [place] [id number] Shannan Méndez, TABLET MACHINE OPERATOR-[employer] [address] [place] [address] Menorrhagia with irregular cycle; Uterine leiomyoma, unspecified location; Abnormal pelvic ultrasound; Abnormal uterine bleeding (AUB) Discharge Disposition: Home Social History Tobacco UseTypesPacks/DayYears UsedDateSmoking Tobacco: NeverSmokeless Tobacco: NeverAlcohol UseStandard Drinks/WeekCommentsNot Currently0 (1 standard drink = 0.6 oz pure alcohol)ChildcareAnswerDate UnrxswdbFqkvrrnuqGwznvkx06/12/2019 EmploymentAnswerDate SsajjizoGssfcsyadyEydczpl69/12/2019Hunger ScreeningAnswer Date RecordedWithin the past 12 months we worried whether our food would run out before we got money to buy more.Never True12/05/2024Within the past 12 months the food we bought just didn't last and we didn't have money to get more.Never True12/05/2024Purpose - LifeAnswerDate RecordedPurpose and direction in life Fscimcy56/11/2021CommentsNoSex and Gender InformationValueDate Recorded Sex Assigned at BirthNot on fileLegal LheAzbmcv35/06/2015 11:57 AM EDTGender IdentityNot on fileSexual OrientationNot on filedocumented as of this encounter Last Filed Vital Signs Vital SignReadingTime TakenCommentsBlood Pressure--Pulse--Temperature-- Respiratory Rate--Oxygen Saturation--Inhaled Oxygen Concentration--Qrohnk93.5 kg (215 lb)01/20/2025 7:48 AM ESTHeight--Body Mass Index39.32103/22/2024 7:45 AM EST documented in this encounter Medications at Time of Discharge MedicationSigDispense QuantityRefillsLast FilledStart DateEnd Date dexlansoprazole (DEXILANT) 60 mg capsule Take by mouth. IRON, FERROUS SULFATE, ORAL Take by mouth. metoprolol succinate XL (TOPROL XL) 50 mg 24 hr tablet Take 1 tablet (50 mg total) by mouth.11/26/2024documented as of this encounter Plan of Treatment DateTypeDepartmentCare Team (Latest Contact Info)Doxvxiwlfju41/17/2025 9:15 AM ESTProcedure visit [facility] [address] [facility] [place] [address] Gaby Zuleta MD [address] [facility] [facility] [facility] [place] [address] documented as of this encounter Procedures Procedure NamePriorityDate/TimeAssociated DiagnosisCommentsMR PELVIS W WO CONT Hnojalg8401/20/2025 8:51 AM EST Menorrhagia with irregular cycle Uterine leiomyoma, unspecified location Abnormal pelvic ultrasound Abnormal uterine bleeding (AUB) documented in this encounter Results * MR pelvis with and without contrast (01/20/2025 8:51 AM EST)Anatomical Region LateralityModalityBody, Body Covera, MSK Covera, PelvisN/AMagnetic Resonance Specimen (Source)Anatomical Location / LateralityCollection Method / Volume Collection TimeReceived Time01/20/2025 9:55 AM EST Narrative 01/20/2025 10:06 AM EST History: Abnormal uterine bleeding. EXAM: MRI pelvis without and with contrast COMPARISON: Pelvic ultrasound FINDINGS: Uterus 4.9 x 6.2 x 5.5 cm. Subserosal 2.0 cm anterior fundal uterine fibroid. Endometrial thickness9 mm. No focal endometrial lesions identified. No fluid in the endometrial canal. Indistinct junctional zone, small subendometrial cysts up to 5 mm. Incidental 8 mm nabothian cyst. Right ovary removed. Left ovary 2.5 2.3 x 1.8 cm, small follicles measuring up to 1.6 cm. No free fluid in the cul-de-sac. No adenopathy or enhancing lesions. IMPRESSION: Diffuse adenomyomatosis, small subserosal uterine fibroid. Finalized by Elliot Stanley MD on 01/20/2025 10:06 AM Procedure Note Elliot Stanley MD - 01/20/2025 History: Abnormal uterine bleeding. EXAM: MRI pelvis without and with contrast COMPARISON: Pelvic ultrasound FINDINGS: Uterus 4.9 x 6.2 x 5.5 cm. Subserosal 2.0 cm anterior fundal uterinefibroid. Endometrial thickness 9 mm. No focal endometrial lesionsidentified. No fluid in the endometrial canal. Indistinct junctional zone,small subendometrial cysts up to 5 mm. Incidental 8 mm nabothian cyst. Right ovary removed. Left ovary 2.5 2.3 x 1.8 cm, small folliclesmeasuring up to 1.6 cm. No free fluid in the cul-de-sac. No adenopathy orenhancing lesions. IMPRESSION: Diffuse adenomyomatosis, small subserosal uterine fibroid. Finalized by Elliot Stanley MD on 01/20/2025 10:06 AM Authorizing ProviderResult TypeResult Gregoria Méndez TABLET MACHINE OPERATOR[facility] MRI ORDERABLESFinal Result documented in this encounter Visit Diagnoses Diagnosis Menorrhagia with irregular cycle Uterine leiomyoma, unspecified location Abnormal pelvic ultrasound Abnormal uterine bleeding (AUB) Abnormal uterine bleeding (AUB)- Primary documented in this encounter Administered Medications Medication OrderMAR ActionAction DateDoseRateSite gadoteridoL (PROHANCE) injection 9.75 mmol 19.5 mL 9.75 mmol (0.1 mmol/kg ?? 97.5 kg), intravenous, Once in imaging, contrast, MRI, Starting on Mon01/20/25 at 0745, For 1 dose, VESICANT (RED), Indications: magnetic resonance imaging Indications:magnetic resonance qxoryywUntec76/03/2025 8:35 AM EST9.75 mmol sodium chloride 0.9 % flush 10 mL 10 mL, intravenous, Once in imaging, line care, MRI, Starting on Mon01/20/25 at 0745, For 1 dose Given01/20/2025 8:35 AM EST10 mL sodium chloride 0.9 % radiology injection 50 mL, intravenous, Once in imaging, pre/post contrast, MRI, Starting on Mon01/20/25 at 0745, For 1dose Given01/20/2025 8:35 AM EST50 mLdocumented in this encounter Additional Health Concerns AssessmentNoted TimeA Body Mass Index follow-up plan has been documented for the kwryzsm4310/13/2021 1:02 PM EDTdocumented as of this encounter Care Teams Team MemberRelationshipSpecialtyStart DateEnd Date Kimberly Boles MD [address] [place] [address] PCP - General04/26/17documented as of this encounter
--- OUTSIDE RECORDS SUMMARY | 2025-01-21 10:36 | XMS_ITS | Continuity of Care Document ---
Author Organization [facility] Address [address] [place] [address] Phone Care Team Providers Care Linux Support Engineer Name Role Phone Kimberly Boles MD Primary Care Provider Jad Perez PA-C Attending Provider Carrie Schwartz CMA Attending Provider [facility] Uma Espino PA-C Attending Provider Kimberly Boles MD Attending Provider [phone] Care Teams Patient Care Team Team Status: Active Member Role/Relationship Status Dates Kimberly Boles MD Primary Care Provider Active Visit Care Team Team Status: Active Member Role/Relationship Status Dates Kimberly Boles MD Primary Care Provider Active Start: October 24, 2024 Shannan Blackman ProviderActiveStart: October 24, 2024 Visit Care Team Team Status: Active Member Role/Relationship Status Dates Kimberly Boles MD Primary Care Provider Active Start: October 25, 2024 Carrie Schwartz CMAAttending ProviderActiveStart: October 25, 2024 Visit Care Team Team Status: Active Member Role/Relationship Status Dates Kimberly Boles MD Primary Care Provider Active Start: December 17, 2024 Shannan Brian ProviderActiveStart: December 17, 2024 Visit Care Team Team Status: Inactive Member Role/Relationship Status Dates Kimberly Boles MD Primary Care Provider Active Start: January 06, 2025 End: January 06, 2025Kimberly Boles MDAttsrinivasa ProviderActiveStart: January 06, 2025 End: January 06, 2025 Patient Care Team Team Status: Inactive Member Role/Relationship Status Dates Kimberly Boles MD Primary Care Provider Active Start: January 21, 2025 End: January 21, 2025Eron Thayer ProviderActiveStart: January 21, 2025 End: January 21, 2025 Chief Complaint and Reason for Visit Chief Complaint Admit Date Amb Documentation October 25, 2024 9:5 5am possible strep January 06, 2025 9 :52am Go over results January 21, 2025 3 :04pm Reason for Visit Admit Date Bronchitis January 06, 2025 9 :52am Allergies, Adverse Reactions, Alerts Allergen Type Severity Reaction Last Updated Verified Status acetaminophen Allergy Mild Hives January 21, 2025 3:07pm Yes Active dextromethorphan Allergy Mild Hives January 21, 2025 3:07 pm Yes Active doxylamine Allergy Mild Hives January 21, 2025 3:07pm Yes Active guaifenesin Allergy Mild Hives January 21, 2025 3:07pm Ye s Active pseudoephedrine Allergy Mild Hives January 21, 2025 3:07p m Yes Active Social History Smoking Status Status Start Date End Date Date of Observa tion Never smoked tobacco (finding) May 28, 2024 11:52am Observation Status Observation Response Date of Response Legal Sex Female (finding) Sex Assigned At [facility] 1980 Family History Relationship Condition Age at Onset Recorded Date/T laurita father Hypertension Unknown Diabetes mellitusUnknown Problems Active Problems Problem Diagnosis/Recorded Date Onset Date Stat us SI joint arthritis May 30, 2023 11:39am Unknown Active Acute cough May 30, 2023 8:29pm Unknown Acti ve Colon cancer screening April 29, 2024 3:43pm Unkn own Active Left cervical radiculopathy September 02, 2024 1:09pm Unk nown Active Benign paroxysmal vertigo, right ear May 30, 2023 11:39am Unknown Active Sinusitis, acute maxillary May 30, 2023 8:29pm Unk nown Active Myalgia September 02, 2024 1:07pm Unknown Activ e Anosmia May 30, 2023 11:39am Unknown Act renard Anemia, unspecified May 30, 2023 11:39am Unknown Active Wellness examination December 11, 2023 3:07pm Unkno wn Active DDD (degenerative disc disease), lumbar May 29 11:39am Unknown Active Essential (primary) hypertension May 30, 2023 11:3 9am Unknown Active Gastro-esophageal reflux dis ease without esophagitis May 30, 2023 11:39am Unknown Active Bronchitis January 21, 2025 2:55pm Unknown Ac tive Chronic sinusitis, unspecified May 30, 2023 11:39a m Unknown Active Medications Medication Status Dose Units Route Directions Qty Days Refills S tart Date Stop Date End Date Reason(s) Instructions Adherence Metoprolol Succinate 50 mg t ablet extended release 24 hr Discontinued 50 MG PO Daily 90 1May 2023 7:39amOctober 2023 4:59amMetoprolol Succinate 50 mg tablet extended release 24 hvBsytlyyejwki84ABXGZgyjn435Gtrfkfz 2023 4:59amOctober 2023 3:27pmMetoprolol Succinate 50 mg tablet extended release 24 hr Opxpbpplmhni59JUWEFpgrj532Ojltskm 2023 3:26pmFebruary 2024 12:05pm Metoprolol Succinate 50 mg tablet extended release 24 iiKmnwbmxnownh35EPINYknoz 901bruary 2024 12:05pmAugust 2024 1:04pmMetoprolol Succinate 50 mg tablet extended release 24 zcPukfii17OIJEOduth535Iqxbrw 8th, 2025 1:04pmComplies with drug therapyDexlansoprazole 60 mg capsule,biphase delayed komvqdKwdegc80PH YKWrbpb274Itjfbqw 2024 10:08amComplies with drug therapyAzithromycin 250 mg rsdztaYuvars8WP.FUQMSAN30Vmhwyvp 2024 4:04pmFor 250 mg dose pack: take 500 mg today (day 1), then 250 mg for 4 days (days 2-5) POComplies with drug therapy Benzonatate 200 mg kvyvwohPeptsu112SUMS5-0 TIMES PER DAY as needed for January 15, 2025 4:04pmComplies with drug therapyMeloxicam 15 mg tablet Qzlvriiyudmk01VTAIItofv347Zholnjfnf 2023 11:00pmFebruary 2024 3:32pm Dexlansoprazole 60 mg capsule,biphase delayed xfdcgwBrahrramqjau74SCFTFgtic079 April 29, 2024 12:00amOctober 2024 10:08amFerrous Gluconate (Ferate) 240 mg (27 mg iron) wexureBwolmp417TYHPQvcfhTprrfxy 2024 11:00pmComplies with drug therapyAzithromycin 250 mg lgqoecXziderlfgkgj0NR.TJOKMYY14Oubxmgt 2024 11:00pmOctober 2024 4:04pmFor 250 mg dose pack: take 500 mg today (day 1), then 250 mg for 4 days (days 2-5) POBenzonatate 200 mg capsule Spbjrcfyanoj889QJIN1-2 TIMES PER DAY as needed for hdrhh940Agaovum2024 11:00pmOctober 2024 4:04pmDexlansoprazole 60 mg capsule,biphase delayed osqukfWeuctmxzgcpp66IVLVJahtqEcudv 2023 11:00pmSeptember 2023 2:52pm Ferrous Sulfate (Feosol) 325 mg (65 mg iron) scabhbIbuhiymeftef948WPGCQtvdmNktbz 2023 11:00pmFebruary 2024 3:32pmMetoprolol Succinate 50 mg tablet extended release 24 aoBeiwocbprfls60WKDVIraoaXgvcw 2023 11:00pmMay 2023 7:40amNaproxen 500 mg yljzmiYfvohkqvvcto567BZPCAyvcy daily as neededP[facility] 2023 11:00pmMarch 2023 12:42pmAzithromycin 250 mg tabletDiscontinued 0PO.JDTQTZR80Huswg 2023 11:00pmSeptember 2023 2:52pmFor 250 mg dose pack: take 500 mg today (day 1), then 250 mg for 4 days (days 2-5) PO Methylprednisolone (Medrol (Oleg)) 4 mg tablets,dose vopxHzfoevawoflp4NZiek package esjygnofvi793Vwxi 2024 11:00pmOctober 2024 9:05amPO PER PKG DIR for 6 days Immunizations Immunization Event Date Not Given Reason Dose Number Historical Archeologist Lot Number Reason(s) Given Vaccine Information Statement (VIS) Detail Administration Location influenza, unspecified formulation January 10, 2018 Relevant Diagnostic Tests and/or Laboratory Data Laboratory Results Test Collection Date/Time Result Date/Time Result Interpretation Reference Range Result Comment Performing Site Lipase October 24, 2024 3:22pm October 24, 2024 3:22pm 43.0 U/L 16.0-77.0Magnesium LevelAugust 2024 3:22pmAugust 2024 3:22pm2.0 mg/dL 1.8-2.4Anion GapAugust 2024 3:22pmAugust 2024 3:22pm10.9Basophils # (Auto)October 24, 2024 3:22pmAugust 2024 3:22pm0.0 10 3/uL0.0-0.1Troponin I High SensitivityAugus2024 4:05pmAugust 2024 4:05pm5.2 pg/mL4.0-51.3 CUT-OFF POINTS HAVE BEEN ESTABLISHED BASED ON THE DEFINITION OF MYOCARDIAL INFARCTION. THE UPPERREFERENCE LIMIT (URL) OF TROPONIN, DEFINED THE 99THPERCENTILE OF cTnI DISTRIBUTION IN A REFERENCE POPULATION,HAS BEEN CONFIRMED THE DECISION THRESHOLD FOR MIDIAGNOSIS.99TH PERCENTILE = 51.4 PG/MLNOTE: HIGH-SENSITIVITY TROPONIN ASSAY IS NOT INTENDED TO BEUSED IN ISOLATION BUT SHOULD BE INTERPRETED IN CONJUNCTIONWITH OTHER DIAGNOSTIC AND CLINICAL INFORMATION.Thyroid Stimulating Hormone 3rd GenSept2024 4:58pmSept2024 4:58pm1.805 u[iU]/mL0.358-3.740Troponin I High Sensitivitypt2024 4:58pmSept2024 4:58pm5.5 pg/mL 4.0-51.3CUT-OFF POINTS HAVE BEEN ESTABLISHED BASED ON THE DEFINITION OF MYOCARDIAL INFARCTION. THE UPPERREFERENCE LIMIT (URL) OF TROPONIN, DEFINED THE 99THPERCENTILE OF cTnI DISTRIBUTION IN A REFERENCE POPULATION,HAS BEEN CONFIRMED THE DECISION THRESHOLD FOR MIDIAGNOSIS.99TH PERCENTILE = 51.4 PG/MLNOTE: HIGH-SENSITIVITY TROPONIN ASSAY IS NOT INTENDED TO BEUSED IN ISOLATION BUT SHOULD BE INTERPRETED IN CONJUNCTIONWITH OTHER DIAGNOSTIC AND CLINICAL INFORMATION.Anion GapSept2024 4:58pm December 17, 2024 4:58pm11.4D-Dimer Quantitative (PE/DVT)December 17, 2024 4:58pmSept2024 4:58pm<0.19 mg/L FEU<=0.59Increases in D-Dimer concentration observed withthromboembolic events can be variable due to localiz ation,size, and age of the thrombus. Therefore, a thromboembolicevent cannot be diagnosed with certainty on the basis of thereference range. D-Dimers may also be elevated for a varietyof disorders including advanced age, , coronarydisease, cancer, liver disease, infection, inflammation,hematoma, DIC, trauma, post-surgery, diabetes, thrombolyticor anticoagulant therapy, stress, and generalizedhospitalization.Basophils # (Auto)December 17, 2024 4:58pm December 17, 2024 4:58pm0.0 10 3/uL0.0-0.1Human Chorionic Gonadotropin, Qual December 17, 2024 4:58pmSept2024 4:58pmNEGATIVENEGATIVE Albumin/Globulin RatioAugus2024 3:22pmAugust 2024 3:22pm0.9Basophils (%) (Auto)October 24, 2024 3:22pmAugust 2024 3:22pm0.3 %0.2-2.0 BUN/Creatinine RatioSept2024 4:58pmSept2024 4:58pm12.9 Basophils (%) (Auto)December 17, 2024 4:58pmSept2024 4:58pm0.3 % 0.2-2.0AlbuminAugus2024 3:22pmAugust 2024 3:22pm3.7 g/dL3.4-5.0 Eosinophils # (Auto)October 24, 2024 3:22pmAugust 2024 3:22pm0.2 10 3/uL 0.0-0.7Blood Urea NitrogenSept2024 4:58pmSept2024 4:58pm 9.0 mg/dL7.0-18.0Eosinophils # (Auto)December 17, 2024 4:58pmSept2024 4:58pm0.1 10 3/uL0.0-0.7Alkaline PhosphataseAugust 2024 3:22pmAugust 2024 3:22pm89 U/K76-019Aktzwzywoxh (%) (Auto)October 24, 2024 3:22pmAugust 2024 3:22pm3.2 %0.9-7.0Calcium LevelSept2024 4:58pmSeptember 2024 4:58pm8.8 mg/dL8.5-10.1Eosinophils (%) (Auto)December 17, 2024 4:58pmSept2024 4:58pm1.0 %0.9-7.0Alanine Aminotransferase (ALT/SGPT) October 24, 2024 3:22pmAugust 2024 3:22pm61 U/LAbove high -92 HematocritAugust 2024 3:22pmAugust 2024 3:22pm39.7 %36.0-48.0Chloride LevelSept2024 4:58pmSeptember 2024 4:12vg236 mmol/L98-107 HematocritSept2024 4:58pmSeptember 2024 4:58pm36.3 %36.0-48.0 Aspartate Amino Transf (AST/SGOT)October 24, 2024 3:22pmAugust 2024 3:22pm 34 U/E13-55YoaayvjhuqTplduz 2024 3:22pmAugust 2024 3:22pm13.6 g/dL 12.0-16.0Carbon Dioxide LevelSept2024 4:58pmSept2024 4:58pm29.0 mmol/L21.0-32.0HemoglobinSeptember 2024 4:58pmSeptember 2024 4:58pm12.4 g/dL12.0-16.0BUN/Creatinine RatioAugus2024 3:22pmAugust 2024 3:22pm18.6Immature Granulocyte # (Auto)October 24, 2024 3:22pmAugust 2024 3:22pm0.04 10 3/uLAbove high normal0.00-0.03CreatinineSept2024 4:58pmSeptember 2024 4:58pm0.70 mg/dL0.55-1.02Immature Granulocyte # (Auto)December 17, 2024 4:58pmSeptember 2024 4:58pm0.04 10 3/uLAbove high normal0.00-0.03Blood Urea NitrogenAugust 2024 3:22pmAugust 2024 3:22pm13.0 mg/dL7.0-18.0Immature Granulocyte % (Auto)October 24, 2024 3:22pm October 24, 2024 3:22pm0.6 %Above high normal0.0-0.5Estimated GFR ()December 17, 2024 4:58pmSeptember 2024 4:58pm>60>=60 mL/min/1.73m 2Immature Granulocyte % (Auto)December 17, 2024 4:58pmSeptember 2024 4:58pm0.5 %0.0-0.5Calcium LevelAugust 2024 3:22pmAugust 2024 3:22pm9.0 mg/dL8.5-10.1Lymphocytes # (Auto)October 24, 2024 3:22pmAugust 2024 3:22pm1.8 10 3/uL1.2-3.8Estimated GFR (Non- AmericanSept2024 4:58pmSeptember 2024 4:58pm>60>=60 mL/min/1.73m 2Lymphocytes # (Auto)December 17, 2024 4:58pmSeptember 2024 4:58pm1.7 10 3/uL1.2-3.8 Chloride LevelAugust 2024 3:22pmAugust 2024 3:93qw603 mmol/L98-107 Lymphocytes (%) (Auto)October 24, 2024 3:22pmAugust 2024 3:22pm25.0 % 20.5-60.0Glucose LevelSeptember 2024 4:58pmSeptember 2024 4:89vq641 mg/dLAbove high hbbnmy19-725Bbjerdhkvuq (%) (Auto)December 17, 2024 4:58pm December 17, 2024 4:58pm19.9 %Below low angtxw50.5-60.0Carbon Dioxide Level October 24, 2024 3:22pmAugust 2024 3:22pm26.9 mmol/L21.0-32.0Mean Corpuscular HemoglobinAugust 2024 3:22pmAugust 2024 3:22pm32.1 pg 26.7-34.0Potassium LevelSept2024 4:58pmSeptember 2024 4:58pm 3.4 mmol/LBelow low normal3.5-5.1Mean Corpuscular HemoglobinSept2024 4:58pmSeptember 2024 4:58pm32.0 pg26.7-34.0CreatinineAugu2024 3:22pmAugust 2024 3:22pm0.70 mg/dL0.55-1.02Mean Corpuscular Hemoglobin ConcentAugus2024 3:22pmAugust 2024 3:22pm34.3 g/dL29.9-35.2Sodium LevelSept2024 4:58pmSeptember 2024 4:00er241 mmol/D452-684Wwcg Corpuscular Hemoglobin ConcentSeptember 2024 4:58pmSeptember 2024 4:58pm34.2 g/dL29.9-35.2Estimated GFR ()October 24, 2024 3:22pm October 24, 2024 3:22pm>60>=60 mL/min/1.73m 2Mean Corpuscular VolumeAugus2024 3:22pmAugust 2024 3:22pm93.6 fL81.0-99.0Mean Corpuscular Volume December 17, 2024 4:58pmSept2024 4:58pm93.8 fL81.0-99.0Estimated GFR (Non- AmericanAugust 2024 3:22pmAugust 2024 3:22pm>60>=60 mL/min/1.73m 2Monocytes # (Auto)October 24, 2024 3:22pmAugust 2024 3:22pm 0.6 10 3/uL0.3-0.8Monocytes # (Auto)December 17, 2024 4:58pmSept2024 4:58pm0.8 10 3/uL0.3-0.8GlobulinAugust 2024 3:22pmAugust 2024 3:22pm3.9 g/dLMonocytes (%) (Auto)October 24, 2024 3:pmAugust 2024 3:22pm 8.4 %1.7-12.0Monocytes (%) (Auto)December 17, 2024 4:58pmSeptember 2024 4:58pm8.8 %1.7-12.0Glucose LevelAugust 2024 3:22pmAugust 2024 3:22pm 105 mg/rW80-933Zval Platelet VolumeAugust 2024 3:22pmAugust 2024 3:22pm11.7 fL9.5-13.5Mean Platelet VolumeSept2024 4:58pmSeptember 2024 4:58pm11.7 fL9.5-13.5Potassium LevelAugust 2024 3:22pmAugust 2024 3:22pm3.8 mmol/L3.5-5.1Neutrophils # (Auto)October 24, 2024 3:22pm October 24, 2024 3:22pm4.5 10 3/uL1.4-6.5Neutrophils # (Auto)December 17, 2024 4:58pmSeptember 2024 4:58pm6.0 10 3/uL1.4-6.5Sodium LevelAugust 2024 3:22pmAugust 2024 3:95zk431 mmol/A765-846Dgojsnsdrvh (%) (Auto)October 24, 2024 3:22pmAugust 2024 3:22pm62.5 %43.0-75.0Neutrophils (%) (Auto) December 17, 2024 4:58pmSeptember 2024 4:58pm69.5 %43.0-75.0Total BilirubinAugust 2024 3:22pmAugust 2024 3:22pm0.3 mg/dL0.2-1.0Platelet CountAugust 2024 3:22pmAugust 2024 3:26po985 10 3/cL116-497Iyphvids CountSeptember 2024 4:58pmSeptember 2024 4:73xc862 10 3/hN931-713 Total ProteinAugust 2024 3:22pmAugust 2024 3:22pm7.6 g/dL6.4-8.2Red Blood CountAugust 2024 3:22pmAugust 2024 3:22pm4.24 10 6/uL4.20-5.40 Red Blood CountSept2024 4:58pmSeptember 2024 4:58pm3.87 10 6/uLBelow low normal4.20-5.40Red Cell Distribution WidthAugust 2024 3:22pm October 24, 2024 3:22pm11.5 %11.0-15.0Red Cell Distribution WidthSeptember 2024 4:58pmSeptember 2024 4:58pm11.8 %11.0-15.0Corrected White Blood CountAugust 2024 3:22pmAugust 2024 3:22pm7.2 10 3/uL4.0-11.0Corrected White Blood CountSeptember 2024 4:58pmSeptember 30th, 2025 4:58pm8.6 10 3/uL4.0-11.0 Vital Signs Vital Reading Result Reference Range Collection Date/Time Height 61 [in_i] January 06, 2025 9:36ngEnyvfs05.52 kgOct2024 9:00amBody Temperature 98.0 [degF]97.6-99.0Oct2024 9:00amHeart Rate76 /qnd52-877Joasscs 20th, 2025 9:00amBP Umzssxmt178 mm[Hg]100-140Oct2024 9:00amBP Bkqpebdbf21 mm[Hg]60-100Oct2024 9:00amBMI (Body Mass Index)40.6 kg/m2 January 06, 2025 9:83elBuagcw88 [in_i]January 21, 2025 3:08ylJlqthe09.52 kg January 21, 2025 3:05pmHeart Rate75 /vbx38-111Hnukwyyg 4th, 2025 3:05pmBP Pfxbkmym983 mm[Hg]100-140Nov2024 3:05pmBP Aaqnvnhdo10 mm[Hg]60-100 January 21, 2025 3:05pmBMI (Body Mass Index)40.6 kg/q0RcgpuwolJanuary 21, 2025 3:05pm Advance Directives Advance Directive Response Recorded Date/ Time Advance Directives No August 25 8:06am Insurance Providers Guarantor Eveline Platt Address [address] [place], [place] [address]Contact Info.Home Phone: Coverage Status Update:2024 Payer Group Member ID Coverage Type Subscriber Relationship to Subscriber Effective Date Expiration Date MMO Id: [id number] R Lozano Id: [id number] [address] [place] [address] Home Phone: Email: Declined 2017[employer] Id: [id number] R Lozano Id: [id number] [address] [place] [address] Home Phone: Email: [facility]ined [facility] Id: [id number] Nola Levineno Id: [id number] [address] [address] Home Phone: Email: Declined 2017 Encounters Encounter Location(s) Arrival/Admit Date Discharge/Departure Date Discharge/Departure Disposition Provider(s) Non-patient / Non-visit -[facility] ugust 2024 4:22pm ЕКАТЕРИНА Blackman-CNon-patient / Iia-ggnyw-[facility]GR[facility] 9:55amCatKike Rivas-patient / Npd-nqdhl-[facility] CoSeptember 2024 5:58pmЕКАТЕРИНА Brina-CDeparted Physician/Provider [facility] 9:52am January 06, 2025 10:34amDischarged to home care or self care (routine discharge)Kimberly Boles , MDDeparted Physician/Provider Office Visit-[facility] 2024 3:04pmNov2024 3:34pmDischarged to home care or self care (routine discharge)Kimberly Boles MD Recent Diagnosis Onset Date Admit Date Bronchitis Unknown January 06 9:52am Assessments Diagnosis Onset Date Resolution Status Admit Date Bronchitis acuteOct2024 9:52am Plan of Treatment Author Kimberly Boles [facility] 20[facility] 2:56pmDiscussed diagnosis with patient. Patient to start Zithromax. Patient to take Zithromax daily with food as prescribed. Finish entire course of antibiotic. Tessalon Pearles ordered to take as needed for cough. Increase fluids and rest. Tpwv-xwz-bdaxqge antipyretics as needed. Warning signs and symptoms reviewed with patient today. Patient to go immediately to the ER should she experience any of these. Patient to notify office should her symptoms persist and not improve. Patient verbalizes understanding and agrees to treatment plan. Future Tests Future scheduled test information is unavailable Pending Tests Pending diagnostic test information is unavailable Future Visits Future appointment information is unavailable Future Procedures Future procedure information is unavailable Future Medications Future medication information is unavailable Patient Instructions Patient instructions are unavailable
--- NOTE | 2025-02-03 07:12 | US_ITS ---
The [address] [address] Patient Name: ELIEZER BUTLER MRN: [id number] date: 1980 Sex: F Assigned Patient Location: [place] Current Patient Location: [place] Accession/Order Number: [id number] Exam Date: 02/03/2025 07:30 Report Date: 02/03/2025 08:34 At the request of: MIRANDA BOTELLO MD Procedure: US right upper quadrant LIMITED RIGHT UPPER QUADRANT ABDOMINAL ULTRASOUND CLINICAL HISTORY: Right upper quadrant and back pain for the past 3 months COMPARISON: 07/06/2024 CT The gallbladder is physiologically distended without shadowing calculi, wall thickening or pericholecystic fluid. No intra- or extrahepatic biliary dilatation is evident. The common duct measures 2 mm. The liver parenchymal is echogenic suggesting fatty infiltration. No focal intrahepatic masses are seen. There is appropriate hepatopetal flow within the main portal vein. The pancreas shows no significant sonographic abnormality. Cursory evaluation of the right kidney reveals no hydronephrosis or fluid within Frances's pouch. US/US right upper quadrant IMPRESSION: FATTY LIVER. NO GALLBLADDER PATHOLOGY Impression dictated by: Anai Blanco M.D. 02/03/2025 8:34 AM Dictation Location: [place] [address] Electronically authenticated by: [id number] Y Date: 02/03/2025 08:34
--- OUTSIDE RECORDS SUMMARY | 2025-02-03 07:14 | XMS_ITS | CCD ---
Author Organization [facility] Care Team Providers Care Stylist Assistant Name Role Phone ED RAMIREZ Attending Unavailable JOSELUIS LAO Referring Unavailable MIRANDA BOTELLO Primary Care Unavailable JENNIFER OLIVIER Admitting Unavailable Miranda Botello Primary Care Provider [phone] LEO Schroeder, DR MALLOY Consulting Unavailable LEO ., DR MALLOY Attending Unavailable LEO ., DR MALLOY Admitting Unavailable ROSMERY, DR MIRANDA Peñaloza Primary Care Unavailable BOTELLO, DR MIRANDA Peñaloza Primary Care Unavailable ROSMERY, DR MIRANDA Peñaloza Consulting Unavailable ROSMERY, DR MIRANDA Peñaloza Attending Unavailable ROSMERY, DR MIRANDA Peñaloza Admitting Unavailable Miranda Botello Unavailable Carrie Pope Attending Unavailable Carrie Pope Admitting Unavailable Miranda Botello Primary Care Unavailable Miranda Botello MD Primary Care Provider Carrie Pope DO Attending Provider Miranda Botello MD Primary Care Provider [phone] SHANNAN MÉNDEZ Attending Unavailable MIRANDA BOTELLO Referring Unavailable MIRANDA BOTELLO Primary Care Unavailable Miranda Botello MD Primary Care Provider Jad Perez PA-C Attending Provider Carrie Schwartz CMA Attending Provider UnavailUma Wynne PA-C Attending Provider [phone] Miranda Botello MD Attending Provider [phone] Miranda Botello MD Primary Care Provider Jad Perez PA-C Attending Provider Carrie Schwartz CMA Attending Provider UnavailUma Wynne PA-C Attending Provider [phone] Miranda Botello MD Attending Provider [phone] SHANNAN MÉNDEZ Attending Unavailable SHANNAN MÉNDEZ Referring Unavailable MIRANDA BOTELLO Primary Care Unavailable SHANNAN MÉNDEZ Referring Unavailable MIRANDA BOTELLO Primary Care Unavailable SHANNAN MÉNDEZ Attending Unavailable SHANNAN MÉNDEZ Referring Unavailable MIRANDA BOTELLO Primary Care Unavailable Allergies Allergy ClassificationReported Allergen(s)Allergy TypeDate of OnsetReaction(s) Facility (2 sources)AcetaminophenDrug Ukrehld38-89-6522QbpatXhmlnaudmPremier [facility] (2 sources)DextromethorphanDrug Omwtqpb60-88-2798FcayoHyqykgxcxPremier Health [facility] (2 sources)DoxylamineDrug Bipvmmf95-16-6313YydbgUuwxhrzfjPremier Health [facility] (2 sources)guaiFENesinDrug Ojmlblq40-78-0125SaqkhQfypkxxmpPremier Health [facility] (2 sources)PseudoephedrineDrug Zjrcgzk46-02-8521QsepxLbklywdbyPremier Health [facility] Medications Current Medications MedicationDrug Class(es)DatesSig (Normalized)Sig (Original)amoxicillin 500 mg oral capsule (4 sources)Penicillin-class AntibacterialStart: 01-23-6304cpwa 1 capsule by mouth every eight hoursAmoxicillin 500 MG 1 capsule Orally every 8 hrs for 5 day(s) Jan, Activeazithromycin 250 mg oral tablet (8 sources)Macrolide AntimicrobialStart: 01-06-2025 End: 86-59-9179Dtpyarlzcfvd 250 mg tablet Active 0 PO .COMPLEX 6 0 January 15, 2025 4:04pm For 250 mg dose pack:take 500 mg today (day 1), then 250 mg for 4 days (days 2-5) PO Complies with drug therapyStart: 05-30-2023 End: 77-32-2668Ntkkophjkihf 250 mg tablet Discontinued 0 PO .COMPLEX 6 0 May 29, 2023 11:00pm December 11, 2023 2:52pm For 250 mg dose pack: take 500 mg today (day 1), then 250 mg for 4 days (days 2-5) POStart: 05-30-2023 End: 01-23-1789Ausslfscbxcp Discontinued 0 PO .COMPLEX 6 May 30, 2023 12:00am December 11, 2023 3:52pm For 250 mg dose pack: take 500 mg today (day 1), then 250 mg for 4 days (days 2-5) PObenzonatate 200 mg oral capsule (5 sources)Non-narcotic AntitussiveStart: 01-06-2025 End: 34-63-2437Lqipvfogngq 200 mg capsule Active 200 MG PO 2-3 TIMES PER DAY as needed for cough January 15, 2025 4:04pm Complies with drug therapyStart: 85-74-7411sgjp 1 capsule by mouth every eight hoursBenzonatate 200 MG 1 capsule Orally Three times a day for 10 day(s) Jan, Activecyclobenzaprine hydrochloride 10 mg oral tablet (2 sources)Muscle RelaxantStart: 50-36-0248vium 1 tablet by mouth every eight hoursCyclobenzaprine HCl 10 MG 1 tablet as needed Orally Three times a day for 10 days Aug, Activedexlansoprazole 60 mg delayed release oral capsule (10 sources)Proton Pump InhibitorStart: 04-29-2024 End: 14-61-8388icbz 1 capsule by mouth once dailyDexlansoprazole 60 mg capsule,biphase delayed releas Active 60 MG PO Daily December 24, 2024 10 :08am Complies with drug therapyStart: 06-02-2022 End: 26-86-0293sftu 1 capsule by mouth once dailyDexlansoprazole 60 mg capsule,biphase delayed releas Discontinued 60 MG PO Daily May 29, 2023 11 :00pm December 11, 2023 2:52pmDexlansoprazole 60 mg capsule,biphase delayed releas (4 sources)Start: 97-08-9153negl 1 capsule by mouth once dailyDexlansoprazole 60 mg capsule,biphase delayed releas Active 60 MG PO Daily April 29, 2024 1:00amStart: 07-85-8808utdz 1 capsule by mouth once dailyDexlansoprazole 60 mg capsule,biphase delayed releas Active 60 MG PO Daily April 29, 2024 12 :00amStart: 05-30-2023 End: 96-33-9579uvhf 1 capsule by mouth once dailyDexlansoprazole 60 mg capsule,biphase delayed releas Discontinued 60 MG PO Daily May 30, 2023 12 :00am December 11, 2023 3:52pmStart: 05-30-2023 End: 66-11-3992nwyz 1 capsule by mouth once dailyDexlansoprazole 60 mg capsule,biphase delayed releas Discontinued 60 MG PO Daily May 29, 2023 11 :00pm December 11, 2023 2:52pmferrous gluconate 240 mg oral tablet (2 sources)Start: 50-15-2157kzfi 1 tablet by mouth once dailyFerrous Gluconate (Ferate) 240 mg (27 mg iron) tablet Active 240 MG PO Daily January 05, 2025 11:00pm Complies with drug therapyIron (2 sources)Iron ActiveIRON, FERROUS SULFATE, ORAL (1 source)IRON, FERROUS SULFATE, ORAL Take by mouth. Oedlib24 hr metoprolol succinate 50 mg extended release oral tablet (20 sources)beta-Adrenergic BlockerStart: 98-14-5787gxnz 1 tablet by mouth every twenty-four hoursmetoprolol succinate XL (TOPROL XL) 50 mg 24 hr tablet Take 1 tablet (50 mg total) by mouth. 11/26/2024 ActiveStart: 05-30-2023 End: 93-10-2146jshn 1 tablet by mouth once dailyMetoprolol Succinate 50 mg tablet extended release 24 hr Discontinued 50 MG PO Daily 90 April 29, 2024 12:05pm October 25, 2024 1:04pm End: 27-83-0426pcco 1 tablet by mouth in the morningmetoprolol tartrate (LOPRESSOR) 50 mg tablet Take 50 mg by mouth in the morning. 12/05/2024 Disconti nued (Alternate therapy)take 1 tablet by mouth once dailyMetoprolol Succinate ER 50 MG take 1 tablet by mouth once daily for 30 days Activenorethindrone 0.35 mg oral tablet (1 source)Start: 10-13-2021 End: 15-63-9284igpq 1 tablet by mouth in the morningnorethindrone (ORTHO MICRONOR) 0.35 mg tablet Indications: Encounter for initial prescription of con traceptive pills Take 1 tablet (0.35 mg total) by mouth in the morning. 28 SOLN 12 10/13/2021 12/05/2024 Discontinued (Therapy completed)pantoprazole (2 sources)Proton Pump InhibitorPantoprazole Sodium ActivepredniSONE 20 mg oral tablet (2 sources)Start: 06-13-2351nkss 2 tablets by mouth every twenty-four hours predniSONE 20 MG 2 tablet Orally Once a day for 6 day(s) Aug, Active Completed/Discontinued Medications MedicationDrug Class(es)DatesSig (Normalized)Sig (Original)ferrous sulfate 325 mg oral tablet (5 sources)Start: 05-30-2023 End: 36-31-7820ohhe 1 tablet by mouth once dailyFerrous Sulfate (Feosol) 325 mg (65 mg iron) tablet Discontinued 325 MG PO Daily May 29, 2023 11:00pm April 29, 2024 3:32pmKetorolac (2 sources)Nonsteroidal Anti-inflammatory Drug, Cyclooxygenase InhibitorStart: 31-58-2912Hckhwrr per 15 mg Aug, 30 mgmeloxicam 15 mg oral tablet (5 sources)Nonsteroidal Anti-inflammatory DrugStart: 12-11-2023 End: 94-11-3024gbmd 1 tablet by mouth once dailyMeloxicam 15 mg tablet Discontinued 15 MG PO Daily 30 December 10, 2023 11:00pm April 3:32pmmethylPREDNISolone 4 mg oral tablet (2 sources)CorticosteroidStart: 09-02-2024 End: 66-23-5485jmoi 1 tablet by mouth onceMethylprednisolone (Medrol (Oleg)) 4 mg tablets,dose pack Discontinued 0 PO per package directions September 01, 2024 11:00pm January 06, 2025 9:05am PO PER PKG DIR for 6 daysnaproxen 500 mg oral tablet (7 sources)Nonsteroidal Anti-inflammatory DrugStart: 05-30-2023 End: 72-70-7035bagw 1 tablet by mouth twice daily as neededNaproxen 500 mg tablet Discontinued 500 MG PO Twice daily as needed May 29, 2023 11:00pm May 30, 2023 12:42pmStart: 10-30-2528rsdy 1 tablet by mouth every twelve hours at mealtime as neededNaproxen Sodium 550 MG 1 tablet with food or milk as needed Orally every 12 hrs for 7 days Aug, Active Problems Active Problems Problem ClassificationProblemDateDocumented DateEpisodic/ChronicAbdominal pain (6 sources)Generalized abdominal pain; Translations: [Generalized abdominal pain]Onset: 91-15-8579ZwgfbjstPsszf bronchitis (2 sources)Acute bronchitis; Translations: [Acute bronchitis due to other specified organisms]EpisodicBacterial infection; unspecified site (1 source)Other specified bacterial agents as the cause of diseases classified elsewhereEpisodicBenign neoplasm of uterus (1 source)Leiomyoma of uterus, unspecified; Translations: [Leiomyoma of uterus, unspecified]Onset: 96-94-8077WbtpkauoBibymic obstructive pulmonary disease and bronchiectasis (2 sources)Bronchitis; Translations: [Bronchitis, not specified as acute or chronic]18-99-4373YkdzskjcJqruhjrtve associated with dizziness or vertigo (7 sources)Benign paroxysmal positional vertigo; Translations: [Benign paroxysmal vertigo, right ear]70-17-3255JfyelgjzYlpmbsmwcg and other anemia (1 source)Iron deficiency anemia due to blood loss; Translations: [Iron deficiency anemia secondary to blood loss (chronic)]Onset: ChronicDeficiency and other anemia (7 sources)Anemia; Translations: [Anemia, unspecified]75-08-7256Inwhlqcu Deficiency and other anemia (2 sources)Iron deficiency anemia; Translations: [Iron deficiency anemia, unspecified]EpisodicEsophageal disorders (12 sources)Esophageal reflux finding; Translations: [Esophageal reflux]Onset: 340115-02-4542MpgftumNewheaccj hypertension (8 sources)Essential hypertension; Translations: [Essential (primary) hypertension]41-77-0637TrpsvgeNrkch and electrolyte disorders (3 sources)Hypokalemia; Translations: [Hypokalemia]Onset: 71-71-3988Sxosaycf Genitourinary symptoms and ill-defined conditions (1 source)Urinary incontinence; Translations: [Unspecified urinary incontinence] Onset: 011344-37-4427FlksswoOlhshboq; including migraine (1 source)Migraine without aura; Translations: [Migraine without aura, not intractable, without status migrainosus]Onset: hronic Malaise and fatigue (2 sources)Fatigue; Translations: [Other fatigue]EpisodicMenstrual disorders (4 sources)Menometrorrhagia; Translations: [Excessive and frequent menstruation with irregular cycle]Onset: 397705-70-3689OcsmicbTaqpyz and vomiting (2 sources)Nausea; Translations: [Nausea]EpisodicNonspecific chest pain (2 sources)Chest pain; Translations: [Chest pain, unspecified]EpisodicOther aftercare (1 source)Other chcf (current) drug therapy; Translations: [OTH CARE HOME CURRENT DRUG THERAPY]Onset: 14-33-5530ArkwmfkkJdond circulatory disease (2 sources)Elevated blood-pressure reading without diagnosis of hypertension; Translations: [Elevated blood-pressure reading, without diagnosis of hypertension]EpisodicOther connective tissue disease (4 sources)Muscle pain; Translations: [MYALGIA, UNSPECIFIED SITE]09-02-2024 EpisodicOther female genital disorders (1 source)Abnormal uterine bleeding; Translations: [Abnormal uterine and vaginal bleeding, unspecified]92-75-3116QtvotegRhwho female genital disorders (2 sources)Abnormal uterine and vaginal bleeding, unspecified; Translations: [Abnormal uterine and vaginal bleeding, unspecified]Onset: 24-75-8596Ercsvsi Other gastrointestinal disorders (2 sources)Abdominal bloating; Translations: [Abdominal distension (gaseous)] EpisodicOther lower respiratory disease (1 source)Cough; Translations: [Acute cough]15-31-0910TjdusoxjZjktx lower respiratory disease (4 sources)Cough; Translations: [Acute cough]65-20-1027HqnkztvvTzuqs nervous system disorders (7 sources)Loss of sense of smell; Translations: [Anosmia]92-54-1230Kozcshhv Other nutritional; endocrine; and metabolic disorders (2 sources)Body mass index 30+ - obesity; Translations: [Body mass index 36.0- 36.9, adult]Onset: 25-24-9104UpopoguJiocl nutritional; endocrine; and metabolic disorders (2 sources)Obese class II; Translations: [Body mass index 37.0-37.9, adult] Onset: 44-49-1608IbnkscxKbuzo nutritional; endocrine; and metabolic disorders (2 sources)Loss of appetite; Translations: [Anorexia]EpisodicOther screening for suspected conditions (not mental disorders or infectious disease) (1 source)Abnormal findings on diagnostic imaging of other specified body structures; Translations: [Abnormalfindings on diagnostic imaging of other specified body structures]Onset: 28-51-3367GjnjnwnLenns screening for suspected conditions (not mental disorders or infectious disease) (5 sources)Patient encounter status; Translations: [Encounter for screening for malignant neoplasm of colon]96-46-6851FwsegyqiKuvhl upper respiratory infections (8 sources)Chronic sinusitis; Translations: [Chronic sinusitis, unspecified] ChronicOther upper respiratory infections (11 sources)Acute pharyngitis, unspecified; Translations: [Acute pharyngitis] Onset: 69-26-5807ZkguiiyrGpoyljmez and history of mental health and substance abuse codes (1 source)Personal history of nicotine dependence; Translations: [PERSONAL HISTORY OF NICOTINE DEPEND]Onset: 07-69-1675IwyphkdiFmjyfnhepdb; intervertebral disc disorders; other back problems (14 sources)Sacroiliac disorder; 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, sacral and sacrococcygeal region]12-14-0214BbocvmhYgsxrkuiunx; intervertebral disc disorders; other back problems (2 sources)Left cervical root neuropathy; Translations: [Radiculopathy, cervical region]64-29-6812SvznlutbSfdvsrwefppy (2 sources)Exposure to acute respiratory syndrome coronavirus 2; Translations: [Contact with and (suspected) exposure to COVID-19]Viral infection (2 sources)Disease caused by 2019-nCoV; Translations: [COVID-19] Past or Other Problems Problem ClassificationProblemDateDocumented DateEpisodic/ChronicAbdominal hernia (2 sources)Diaphragmatic hernia; Translations: [Diaphragmatic hernia without obstruction or gangrene]Onset: 70-20-4426GzjlieobVnwxkre dysrhythmias (4 sources)Palpitations; Translations: [Palpitations]Onset: 05-89-8258Adkzgvvx Deficiency and other anemia (4 sources)Iron deficiency anemia, unspecified; Translations: [IRON DEFICIENCY ANEMIA UNSPECIFIED]Onset: 42-85-2416VumcgutpKeskpgzlw and duodenitis (2 sources)Acute gastritis; Translations: [Acute gastritis without mention of hemorrhage]Onset: 17-91-5117TougtjdkOxmxr skin disorders (2 sources)Mass in head or neck; Translations: [Swelling, mass, or lump in head and neck]Onset: 96-38-6148HagghfopXzspjpsp codes; unclassified (2 sources)Requires influenza virus vaccination; Translations: [Need for prophylactic vaccination and inoculation, Influenza]Onset: 91-52-1938Mkbljpkh Residual codes; unclassified (2 sources)C/O - a back symptom; Translations: [Other symptoms referable to back]Onset: 11-18-2981JwnsjdbxKkapzyts codes; unclassified (1 source)Family history of breast cancer; Translations: [Family history of malignant neoplasm of breast]Onset: 204510-67-3678UvilggblWapfmvbf codes; unclassified (1 source)Family history of malignant neoplasm of uterus; Translations: [Family history of malignant neoplasmof other genital organs]Onset: EpisodicUnclassified (2 sources)Screening; Translations: [Screening for unspecified condition]Onset: 51-62-6908Yvzbqhfttejy (1 source)Onset: Results Test NameValueInterpretationReference RangeFacilityMR PELVIS W WO CONTon 30-97-0197UT PELVIS W WO CONTMR PELVIS W WO CONT History: Abnormal uterine bleeding. EXAM: MRI pelvis [...] by Elliot Stanley MD on 01/20/2025 10:06 AMNormalProMedica John Muir Walnut Creek Medical CenterUS PELVIC WITH TRANSVAGINALon 42-24-6617NM PELVIC WITH TRANSVAGINALUS PELVIC WITH TRANSVAGINAL US PELVIC WITH TRANSVAGINAL HISTORY: Abnormal uterine bleeding, menorrhagia, right oophorectomy COMPARISON: Pelvic ultrasound 10/22/2021 TECHNIQUE: Transabdominal and transvaginal sonographic evaluation of the pelvis. Transabdominal imaging performed to evaluate for extra adnexal pelvic pathology. Transvaginal imaging performed for better delineation of the adnexal and endometrial contents. Color Doppler used. FINDINGS: Uterus: 7.3 x 4.3 x 6.1 cm Endometrial Thickness: 0.95 cm Right Ovary: Surgically absent. Left Ovary: 3.6 x 3.0 x 3.5 cm The uterus demonstrates appropriate size. Anechoic structure within the uterine fundus which is nonspecific however may represent a myometrial cyst or cystic degeneration of a fibroid. There are multiple hypoechoic regions likely representing uterine fibroids the largest of which measures 2.1 cm. It is difficult to determine whether they abut the endometrium. The endometrium is unremarkable. Cervical nabothian cysts. Anechoic structure measuring 3.4 x 2.7 x 3.4 cm within the left ovary, likely represents a dominantfollicle. Normal color flow bilaterally. No adnexal masses demonstrated. No free fluid. IMPRESSION: Multiple uterine fibroids. Difficult to determine whether they abut the endometrium sonographically. Consider contrast-enhanced MRI if clinically indicated. Approved by Cecilia Sauceda MD on 12/26/2024 9:30 AM I, Ang Ellison MD have personally reviewed the image(s) and agree with and/or edited the report Finalized by Ang Ellison MD on 12/26/2024 9:50 AMNormalMercy Health Clerm[facility] Hospital CBC (NO DIFF)on 58-00-1594Exjcbavsydx distribution width (RBC) [Ratio]12.3 % Veigzi15.5-15Mer[facility]erm[facility] HospitalComment on above:Performed By: #### CBC #### [facility] ([facility]) [address] [place] [address] VIRHematocrit (Bld) [Volume fraction]38.3 %Fdukbe43-26DpwBklvnnMercy Health Clermont HospitalComment on above:Performed By: #### CBC #### [facility] ([facility]) [address] [place] [address] VIRHemoglobin (Bld) [Mass/Vol]13.1 g/oQUmldao49.7-15.5PMartins Ferry HospitalComment on above:Performed By: #### CBC #### [facility] ([facility]) [address] [place] [address] VIRMCH (RBC) [Entitic mass]32.4 voYqhlkk24-56NnzUllywzBaylor Scott & White Medical Center – TaylorComment on above:Performed By: #### CBC #### [facility] ([facility]) [address] [place] [address] VIRMCHC (RBC) [Mass/Vol]34.2 g/cJIbsiwd10-64ZutVpunnrBaylor Scott & White Medical Center – TaylorComment on above:Performed By: #### CBC #### [facility] ([facility]) [address] [place] [address] VIRMCV (RBC) [Entitic vol]95 yCEobbnj70-979RjeUxnsar [facility] HospitalComment on above:Performed By: #### CBC #### [facility] ([facility]) [address] [place] [address] VIRPlatelet mean volume (Bld) [Entitic vol]10.4 fLNormal7-12 [facility] HospitalComment on above:Performed By: #### CBC #### [facility] ([facility]) [address] [place] [address] VIRPlatelets (Bld) [#/Vol]225 10*3/tIHgghke435-330YedXyaqgm [facility] HospitalComment on above:Performed By: #### CBC #### [facility] ([facility]) [address] [place] [address] VIRRBC COUNT4.05 X10E12/LNormal3.8-5.2PMartins Ferry HospitalComment on above:Performed By: #### CBC #### [facility] ([facility]) [address] [place] [address] VIRWBC (Bld) [#/Vol]8.0 10*3/uLNormal4-11ProBaylor Scott & White Medical Center – TaylorComment on above:Performed By: #### CBC #### [facility] ([facility]) [address] [place] [address] VIRTHYROID PROFILE INCLUDES TSH FT4on 21-67-8011Felm T4 [Mass/Vol]0.96 ng/dLNormal0.61-1.60ProBaylor Scott & White Medical Center – TaylorComment on above: Performed By: #### THYR #### [facility] ([facility]) [address] [place] [address] VIRTSH1.68 uIU/mLNormal0.49-4.67ProBaylor Scott & White Medical Center – Taylor Comment on above:Performed By: #### THYR #### [facility] ([facility]) [address] [place] [address] VIRBasophils Auto (Bld) [#/Vol]Ordered By: Uma Cueto on 95-16-1556Fszvduesj (Bld) [#/Vol]0.0 10 3/uL0.0-0.1FMarymount HospitalBasophils/100 WBC Auto (Bld)Ordered By: Uma Cueto on 12-17-2024 Basophils/100 WBC (Bld)0.3 %0.2-2.0[facility] Eosinophils/100 WBC Auto (Bld)Ordered By: Uma Cueto on 12-17-2024 Eosinophils/100 WBC (Bld)1.0 %0.9-7.0[facility] Erythrocyte distribution width Auto (RBC) [Ratio]Ordered By: Uma Cueto on 30-01-5725Fbqaukdwefb distribution width (RBC) [Ratio]11.8 %11.0-15.0 [facility] HospitalFibrin D-dimer [Presence] in Platelet poor plasma by Latex agglutinationOrdered By: Uma Cueto on 16-82-4237Dfwbbx D-dimer LA Ql (PPP)<0.19 mg/L FEU<=0.59[facility]aritan HospitalComment on above:Increases in D-Dimer concentration observed withthromboembolic events can be variable due to localization,size, and age of the thrombus. Therefore, a thromboembolicevent cannot be diagnosed with certainty on the basis of thereference range. D-Dimers may also be elevated for a varietyof disorders inc luding advanced age, , coronarydisease, cancer, liver disease, infection, inflammation,hematoma, DIC, trauma, post-surgery, diabetes, thrombolyticor anticoagulant therapy, stress, and generalizedhospitalization. Glomerular filtration rate (GFR) estimation in non- AmericanOrdered By: Uma [place] on 33-62-8059QWT/1.73 sq M.predicted among non-blacks MDRD (S/P/Bld) [Vol rate/Area]mL/min/{1.73_m2}>=60 mL/min/1.73m 2FMarymount HospitalHematocrit Auto (Bld) [Volume fraction]Ordered By: [facility] on 31-60-6648Qckpfgakbr (Bld) [Volume fraction]36.3 %36.0-48.0 [facility] HospitalHemoglobin [Mass/volume] in BloodOrdered By: [facility] on 34-22-5934Dzoolvxybu (Bld) [Mass/Vol]12.4 g/dL12.0-16.0 [facility] HospitalLaboratory - Chemistry and Chemistry - challengeOrdered By: [facility] on 57-05-8427Mxrdvbz [Mass/Vol]8.8 mg/dL 8.5-10.1FMarymount HospitalChloride [Moles/Vol]104 mmol/L98-107 [facility] HospitalCO2 [Moles/Vol]29.0 mmol/L21.0-32.0[facility] HospitalCreatinine [Mass/Vol]0.70 mg/dL0.55-1.02[facility] HospitalGFR/1.73 sq M.predicted MDRD (S/P/Bld) [Vol rate/Area] mL/min/{1.73_m2}>=60 mL/min/1.73m 2FMarymount HospitalGlucose [Mass/Vol]121 mg/hNGtgd83-033ZjjwpvdulTrihealth Good Samaritan HospitalPotassium [Moles/Vol]3.4 mmol/LLow3.5-5.1FFairfield Medical Centerodium [Moles/Vol]141 mmol/N048-390AdzmxjphzTrihealth Good Samaritan HospitalTSH Qn1.805 m[IU]/L 0.358-3.740[facility] HospitalUrea nitrogen [Mass/Vol]9.0 mg/dL 7.0-18.0[facility] HospitalUrea nitrogen/Creatinine [Mass ratio] 12.9 mg/mgTrihealth Good Samaritan HospitalLaboratory - Hematology and Cell countsOrdered By: Uma Cueto on 28-67-7804Hmjmorfi granulocytes/100 WBC (Bld)0.5 %0.0-0.5FMarymount HospitalLeukocytes [#/volume] corrected for nucleated erythrocytes in Blood by Automated counOrdered By: Uma Cueto on 04-25-2021PHD corrected for nucl RBC Auto (Bld) [#/Vol]8.6 10 3/uL4.0-11.0[facility]aritan HospitalLymphocytes Auto (Bld) [#/Vol] Ordered By: Umamarky Cueto on 92-73-4077Gnggbkkydab (Bld) [#/Vol]1.7 10 3/uL 1.2-3.8[facility]itan HospitalLymphocytes/100 WBC Auto (Bld)Ordered By: Uma Cueto on 01-25-6237Mblcmdpawvb/100 WBC (Bld)19.9 %Low20.5-60.0 [facility] Auto (RBC) [Entitic mass]Ordered By: Uma Cueto on 09-52-8030WME (RBC) [Entitic mass]32.0 pg26.7-34.0 [facility] HospitalMCHC Auto (RBC) [Mass/Vol]Ordered By: Uma Cueto on 45-18-3152ASQJ (RBC) [Mass/Vol]34.2 g/dL29.9-35.2FMarymount HospitalMCV Auto (RBC) [Entitic vol]Ordered By: Uma Cueot on 68-19-8075VNW (RBC) [Entitic vol]93.8 fL81.0-99.0[facility] HospitalMonocytes Auto (Bld) [#/Vol]Ordered By: [facility] on 12-17-2024 Monocytes (Bld) [#/Vol]0.8 10 3/uL0.3-0.8[facility] Monocytes/100 WBC Auto (Bld)Ordered By: [facility] on 12-17-2024 Monocytes/100 WBC (Bld)8.8 %1.7-12.0[facility] HospitalNeutrophils Auto (Bld) [#/Vol]Ordered By: [facility] on 33-49-0571Typwesynwdz (Bld) [#/Vol]6.0 10 3/uL1.4-6.5FMarymount HospitalNeutrophils/100 WBC Auto (Bld)Ordered By: [facility] on 89-60-3556Uzgnzsnxuiy/100 WBC (Bld) 69.5 %43.0-75.0[facility] HospitalNo Panel InformationOrdered By: [facility] on 32-71-5385Ltbrnltzxeb # (Auto)0.1 10 3/uL0.0-0.7FMarymount HospitalHuman Chorionic Gonadotropin, QualNegativeNEGATIVE [facility] HospitalImmature Granulocyte # (Auto)0.04 10 3/uLHigh 0.00-0.03[facility] HospitalTroponin I High Sensitivity5.5 pg/mL 4.0-51.3FMarymount HospitalComment on above:CUT-OFF POINTS HAVE BEEN ESTABLISHED BASED ON THE FOURTHUNIVERSAL DEFINITION OF MYOCARDIAL INFARCTIO N. THE UPPERREFERENCE LIMIT (URL) OF TROPONIN, DEFINED THE 99THPERCENTILE OF cTnI DISTRIBUTION IN A REFERENCE POPULATION,HAS BEEN CONFIRMED THE DECISION THRESHOLD FOR MIDIAGNOSIS.99TH PERCENTILE = 51.4 PG/MLNOTE: HIGH-SENSITIVITY TROPONIN ASSAY IS NOT INTENDED TO BEUSED IN ISOLATION BUT SHOULD BE INTERPRETED IN CONJUNCTIONWITH OTHER DIAGNOSTIC AND CLINICAL INFORMATION.Platelet mean volume Auto (Bld) [Entitic vol]Ordered By: [facility] on 12-17-2024 Platelet mean volume (Bld) [Entitic vol]11.7 fL9.5-13.5FMarymount HospitalPlatelets Auto (Bld) [#/Vol]Ordered By: Uma Cueto on 82-61-3111Rhhundwso (Bld) [#/Vol]248 10 3/rS568-326XilqgtevhTrihealth Good Samaritan HospitalRBC Auto (Bld) [#/Vol]Ordered By: Uma Cueto on 30-47-1756PWO (Bld) [#/Vol]3.87 10 6/uLLow4.20-5.40[facility] Hospitalerum or plasma anion gap determinationOrdered By: Uma Cueto on 77-98-1479Uyvtt gap [Moles/Vol]11.4 mmol/LFMarymount HospitalBasophils Auto (Bld) [#/Vol]Ordered By: Jad Perez on 72-10-8831Hxffcijpj (Bld) [#/Vol]0.0 10 3/uL0.0-0.1FMarymount HospitalBasophils/100 WBC Auto (Bld)Ordered By: Jad Perez on 44-69-7064Yarszccdy/100 WBC (Bld)0.3 %0.2-2.0[facility] HospitalEosinophils/100 WBC Auto (Bld)Ordered By: Jad Perez on 37-13-5738Yhdmrofamiw/100 WBC (Bld)3.2 %0.9-7.0[facility] HospitalErythrocyte distribution width Auto (RBC) [Ratio]Ordered By: Jad Perez on 50-86-8897Ltbbphxqowh distribution width (RBC) [Ratio]11.5 %11.0-15.0[facility] HospitalGlobulin Calc (S) [Mass/Vol]Ordered By: Jad Perez on 51-33-6117Kxxpoemx (S) [Mass/Vol]3.9 g/dLTrihealth Good Samaritan HospitalGlomerular filtration rate (GFR) estimation in non- AmericanOrdered By: Jad Perez on 93-95-0724BUC/1.73 sq M.predicted among non-blacks MDRD (S/P/Bld) [Vol rate/Area]mL/min/{1.73_m2}>=60 mL/min/1.73m 2FMarymount HospitalHematocrit Auto (Bld) [Volume fraction]Ordered By: Jad Perez on 86-62-6742Dsntdxtucn (Bld) [Volume fraction]39.7 %36.0-48.0[facility] HospitalHemoglobin [Mass/volume] in BloodOrdered By: Jad Perez on 75-07-3783Rogcwynezm (Bld) [Mass/Vol]13.6 g/dL12.0-16.0[facility] HospitalLaboratory - Chemistry and Chemistry - challengeOrdered By: Jad Perez on 10-24-2024 Albumin [Mass/Vol]3.7 g/dL3.4-5.0[facility] HospitalALP [Catalytic activity/Vol]89 U/W27-383EtyppswobTrihealth Good Samaritan HospitalALT [Catalytic activity/Vol]61 U/BClyr65-98IxtsiilqsTrihealth Good Samaritan HospitalAST [Catalytic activity/Vol]34 U/G00-33WmzhsubdoTrihealth Good Samaritan HospitalBilirubin [Mass/Vol]0.3 mg/dL0.2-1.0[facility] HospitalCalcium [Mass/Vol]9.0 mg/dL 8.5-10.1FMarymount HospitalChloride [Moles/Vol]105 mmol/L98-107 [facility] HospitalCO2 [Moles/Vol]26.9 mmol/L21.0-32.0[facility] HospitalCreatinine [Mass/Vol]0.70 mg/dL0.55-1.02[facility] HospitalGFR/1.73 sq M.predicted MDRD (S/P/Bld) [Vol rate/Area] mL/min/{1.73_m2}>=60 mL/min/1.73m 2FMarymount HospitalGlucose [Mass/Vol]105 mg/sK53-333KdckuhkumTrihealth Good Samaritan HospitalLipase [Catalytic activity/Vol]43.0 U/L16.0-77.0[facility] HospitalMagnesium [Mass/Vol]2.0 mg/dL1.8-2.4FMarymount HospitalPotassium [Moles/Vol] 3.8 mmol/L3.5-5.1FMarymount HospitalProtein [Mass/Vol]7.6 g/dL 6.4-8.2FFairfield Medical Centerodium [Moles/Vol]139 mmol/M320-365 [facility] HospitalUrea nitrogen [Mass/Vol]13.0 mg/dL7.0-18.0 [facility] HospitalUrea nitrogen/Creatinine [Mass ratio]18.6 mg/mg [facility] HospitalLaboratory - Hematology and Cell countsOrdered By: Jad Perez on 06-29-0259Upfsqivt granulocytes/100 WBC (Bld)0.6 %High 0.0-0.5FMarymount HospitalLeukocytes [#/volume] corrected for nucleated erythrocytes in Blood by Automated counOrdered By: Jad Perez on 77-59-5546UCS corrected for nucl RBC Auto (Bld) [#/Vol]7.2 10 3/uL4.0-11.0 [facility] HospitalLymphocytes Auto (Bld) [#/Vol]Ordered By: Jad Perez on 56-15-0333Etgdukqmmfi (Bld) [#/Vol]1.8 10 3/uL1.2-3.8 [facility] HospitalLymphocytes/100 WBC Auto (Bld)Ordered By: Jad Perez on 75-11-7806Ggtisaxzkdm/100 WBC (Bld)25.0 %20.5-60.0[facility] Auto (RBC) [Entitic mass]Ordered By: Jad Perez on 76-57-6323MQZ (RBC) [Entitic mass]32.1 pg26.7-34.0[facility] HospitalMCHC Auto (RBC) [Mass/Vol]Ordered By: Jad Perez on 87-63-4773YUIE (RBC) [Mass/Vol]34.3 g/dL29.9-35.2FMarymount HospitalMCV Auto (RBC) [Entitic vol]Ordered By: Jad Perez on 09-45-2939IPE (RBC) [Entitic vol]93.6 fL81.0-99.0[facility] HospitalMonocytes Auto (Bld) [#/Vol]Ordered By: Jad Perez on 44-84-8430Vugqbmbvr (Bld) [#/Vol]0.6 10 3/uL0.3-0.8[facility] HospitalMonocytes/100 WBC Auto (Bld)Ordered By: Jad Perez on 45-38-4268Kzkvlvekn/100 WBC (Bld)8.4 % 1.7-12.0[facility] HospitalNeutrophils Auto (Bld) [#/Vol]Ordered By: Jad Perez on 57-90-5908Btzdhrooqvp (Bld) [#/Vol]4.5 10 3/uL1.4-6.5 [facility] HospitalNeutrophils/100 WBC Auto (Bld)Ordered By: Jad Perez on 60-71-2606Nmqnzptziur/100 WBC (Bld)62.5 %43.0-75.0[facility] HospitalNo Panel InformationOrdered By: Jad Perez on 62-32-8325Bfbqcfdv I High Sensitivity5.2 pg/mL4.0-51.3FMarymount HospitalComment on above:CUT-OFF POINTS HAVE BEEN ESTABLISHED BASED ON THE FOURTHUNIVERSAL DEFINITION OF MYOCARDIAL INFARCTION. THE UPPERREFERENCE LIMIT (URL) OF TROPONIN, DEFINED THE 99THPERCENTILE OF cTnI DISTRIBUTION IN A REFERENCE POPULATION,HAS BEEN CONFIRMED THE DECISION THRESHOLD FOR MIDIAGNOSIS.99TH PERCENTILE = 51.4 PG/MLNOTE: HIGH-SENSITIVITY TROPONIN ASSAY IS NOT INTENDED TO BEUSED IN ISOLATION BUT SHOULD BE INTERPRETED IN CONJUNCTIONWITH OTHER DIAGNOSTIC AND CLINICAL INFORMATION.Eosinophils # (Auto) 0.2 10 3/uL0.0-0.7FMarymount HospitalImmature Granulocyte # (Auto) 0.04 10 3/uLHigh0.00-0.03[facility] HospitalPlatelet mean volume Auto (Bld) [Entitic vol]Ordered By: Jad Perez on 66-41-8424Dtekzuji mean volume (Bld) [Entitic vol]11.7 fL9.5-13.5FMarymount Hospital Platelets Auto (Bld) [#/Vol]Ordered By: Jad Perez on 57-05-9877Fqqvjcxiu (Bld) [#/Vol]255 10 3/hJ428-273YihggitozTrihealth Good Samaritan HospitalRBC Auto (Bld) [#/Vol]Ordered By: Jad Perez on 86-61-1952GUS (Bld) [#/Vol]4.24 10 6/uL 4.20-5.40[facility] Hospitalerum or plasma albumin/globulin mass ratioOrdered By: Jad Perez on 01-46-4282Ggbtilr/Globulin [Mass ratio]0.9 {ratio}[facility] Hospitalerum or plasma anion gap determination Ordered By: Jad Perez on 52-73-1488Axvrj gap [Moles/Vol]10.9 mmol/L [facility] HospitalBasophils Auto (Bld) [#/Vol]on 07-06-2024 Basophils (Bld) [#/Vol]Automated basophil count0.0-0.1FMarymount HospitalBasophils/100 WBC Auto (Bld)on 68-82-5252Fludrqhgm/100 WBC (Bld)Automated basophil %0.2-2.0[facility] HospitalEosinophils/100 WBC Auto (Bld)on 55-33-4966Fzpugquufga/100 WBC (Bld)Automated eosinophil %0.9-7.0 [facility] HospitalErythrocyte distribution width Auto (RBC) [Ratio]on 25-75-8533Njyuwcxqagt distribution width (RBC) [Ratio]Erythrocyte distribution width [Ratio] by Automated count11.0-15.0[facility] HospitalEstimated glomerular filtration rate (GFR) non- Americanon 93-79-0391IBF/1.73 sq M.predicted among non-blacks MDRD (S/P/Bld) [Vol rate/Area]Estimated glomerular filtration rate (GFR) non->=60 mL/min/1.73m 2FMarymount HospitalGlobulin Calc (S) [Mass/Vol]on 43-75-8599Hnvvpxad (S) [Mass/Vol]Serum globulin measurement by calculation (mass/volume)[facility] HospitalHCG ( test) IA.rapid Ql (U)on 72-65-9844QIT ( test) Ql (U)Urine human chorionic gonadotropin (hCG) detection by immunoassayNEGATIVETrihealth Good Samaritan Hospital Hematocrit Auto (Bld) [Volume fraction]on 76-50-8994Tfzjqrihvj (Bld) [Volume fraction]Hematocrit [Volume Fraction] of Blood by Automated count36.0-48.0 [facility] HospitalHemoglobin [Mass/volume] in Bloodon 07-06-2024 Hemoglobin (Bld) [Mass/Vol]Hemoglobin [Mass/volume] in Blood12.0-16.0[facility] HospitalLaboratory - Chemistry and Chemistry - challengeon 25-31-3459Rtofvkb [Mass/Vol]3.5 g/dL3.4-5.0[facility] HospitalALP [Catalytic activity/Vol]95 U/J89-462FmbjnhtbgTrihealth Good Samaritan HospitalALT [Catalytic activity/Vol]41 U/W11-45OqxiahnngTrihealth Good Samaritan HospitalAST [Catalytic activity/Vol]23 U/X76-87JiuconrlpTrihealth Good Samaritan HospitalBilirubin [Mass/Vol]0.4 mg/dL0.2-1.0[facility] HospitalCalcium [Mass/Vol]8.4 mg/dLLow8.5-10.1FMarymount HospitalChloride [Moles/Vol]101 mmol/L 98-107[facility] HospitalCO2 [Moles/Vol]29.1 mmol/L21.0-32.0 [facility] HospitalCreatinine [Mass/Vol]0.86 mg/dL0.55-1.02 [facility] HospitalGFR/1.73 sq M.predicted MDRD (S/P/Bld) [Vol rate/Area]mL/min/{1.73_m2}>=60 mL/min/1.73m 2FMarymount Hospital Glucose [Mass/Vol]96 mg/oN23-205RpabyjfokTrihealth Good Samaritan HospitalLactate [Moles/Vol]1.3 mmol/L0.4-2.0[facility] HospitalLipase [Catalytic activity/Vol]36.0 U/L16.0-77.0[facility] HospitalPotassium [Moles/Vol]3.6 mmol/L3.5-5.1FMarymount HospitalProtein [Mass/Vol] 7.2 g/dL6.4-8.2FFairfield Medical Centerodium [Moles/Vol]140 mmol/L 136-145[facility] HospitalUrea nitrogen [Mass/Vol]9.0 mg/dL 7.0-18.0[facility] HospitalUrea nitrogen/Creatinine [Mass ratio] 10.5 mg/mgTrihealth Good Samaritan HospitalLaboratory - Hematology and Cell countson 73-29-1638Vvrwotbd granulocytes/100 WBC (Bld)1.0 %High0.0-0.5FMarymount HospitalLeukocytes [#/volume] corrected for nucleated erythrocytes in Blood by Automated counon 53-89-6210NMM corrected for nucl RBC Auto (Bld) [#/Vol]Leukocytes [#/volume] corrected for nucleated erythrocytes in Blood by Automated coun4.0-11.0[facility] HospitalLymphocytes Auto (Bld) [#/Vol]on 59-86-2965Vbpbwlokmam (Bld) [#/Vol]Lymphocytes [#/volume] in Blood by Automated countLow1.2-3.8[facility] Lymphocytes/100 WBC Auto (Bld)on 77-74-6698Tltkjflxfxj/100 WBC (Bld) Lymphocytes/100 leukocytes in Blood by Automated dgaauHbd79.5-60.0[facility] HospitalH Auto (RBC) [Entitic mass]on 34-39-5430AZD (RBC) [Entitic mass]MCH [Entitic mass] by Automated count26.7-34.0[facility] HospitalMCHC Auto (RBC) [Mass/Vol]on 61-15-6527LDAG (RBC) [Mass/Vol]MCHC [Mass/volume] by Automated count29.9-35.2FMarymount HospitalMCV Auto (RBC) [Entitic vol]on 27-71-3090ANF (RBC) [Entitic vol]MCV [Entitic volume] by Automated count81.0-99.0[facility] HospitalMonocytes Auto (Bld) [#/Vol]on 23-70-3742Kdhltckxg (Bld) [#/Vol]Automated blood monocyte countHigh 0.3-0.8[facility] HospitalMonocytes/100 WBC Auto (Bld)on 01-25-3848Wbvftpjpf/100 WBC (Bld)Automated monocyte %High1.7-12.0[facility] HospitalNeutrophils Auto (Bld) [#/Vol]on 06-67-9215Myaifcjmrqd (Bld) [#/Vol]Neutrophils [#/volume] in Blood by Automated count1.4-6.5FMarymount HospitalNeutrophils/100 WBC Auto (Bld)on 07-06-2024 Neutrophils/100 WBC (Bld)Automated neutrophil %43.0-75.0[facility] HospitalNo Panel Informationon 66-36-7887Taxvuetwrcv # (Auto)0.1 10 3/uL 0.0-0.7FMarymount HospitalImmature Granulocyte # (Auto)0.07 10 3/uLHigh0.00-0.03[facility] HospitalPlatelet mean volume Auto (Bld) [Entitic vol]on 68-05-1256Ttdkcjbd mean volume (Bld) [Entitic vol]Platelet mean volume [Entitic volume] in Blood by Automated count9.5-13.5FMarymount HospitalPlatelets Auto (Bld) [#/Vol]on 45-70-1837Hmipjbjxu (Bld) [#/Vol]Platelets [#/volume] in Blood by Automated ztweo261-406UdltmbcxuTrihealth Good Samaritan HospitalRBC Auto (Bld) [#/Vol]on 59-46-1548GQB (Bld) [#/Vol]Erythrocytes [#/volume] in Blood by Automated count4.20-5.40[facility] Serum or plasma albumin/globulin mass ratioon 65-20-6224Iqszqnp/Globulin [Mass ratio]Serum or plasma albumin/globulin mass ratioMorrow County Hospitalerum or plasma anion gap determinationon 93-42-2522Stiht gap [Moles/Vol] Serum or plasma anion gap determinationTrihealth Good Samaritan Hospital Basophils Auto (Bld) [#/Vol]on 09-86-7556Ofqvvkoie (Bld) [#/Vol]Automated basophil count0.0-0.1FMarymount HospitalBasophils/100 WBC Auto (Bld)on 89-85-5182Izzemhynb/100 WBC (Bld)Automated basophil %0.2-2.0[facility] HospitalEosinophils/100 WBC Auto (Bld)on 06-10-2024 Eosinophils/100 WBC (Bld)Automated eosinophil %0.9-7.0[facility] HospitalErythrocyte distribution width Auto (RBC) [Ratio]on 29-42-7841Vhhgjfoxqny distribution width (RBC) [Ratio]Erythrocyte distribution width [Ratio] by Automated count11.0-15.0[facility] HospitalEstimated glomerular filtration rate (GFR) non- Americanon 55-15-1485NJZ/1.73 sq M.predicted among non-blacks MDRD (S/P/Bld) [Vol rate/Area]Estimated glomerular filtration rate (GFR) non->=60 mL/min/1.73m 2FMarymount HospitalGlobulin Calc (S) [Mass/Vol]on 82-08-1453Bxkcomaw (S) [Mass/Vol]Serum globulin measurement by calculation (mass/volume)[facility] HospitalHematocrit Auto (Bld) [Volume fraction]on 61-00-2824Fmbhnylsvo (Bld) [Volume fraction]Hematocrit [Volume Fraction] of Blood by Automated count 36.0-48.0[facility] HospitalHemoglobin [Mass/volume] in Bloodon 03-24-6121Nhssqeiwbc (Bld) [Mass/Vol]Hemoglobin [Mass/volume] in Blood12.0-16.0 [facility] HospitalLaboratory - Chemistry and Chemistry - challengeon 19-61-9518Mjxavdq [Mass/Vol]3.5 g/dL3.4-5.0[facility] HospitalALP [Catalytic activity/Vol]82 U/A00-379BdzdcbglnTrihealth Good Samaritan HospitalALT [Catalytic activity/Vol]35 U/T41-87FlpvdxcerTrihealth Good Samaritan Hospital AST [Catalytic activity/Vol]17 U/W08-51ScxoqtxlzTrihealth Good Samaritan Hospital Bilirubin [Mass/Vol]0.4 mg/dL0.2-1.0[facility] HospitalCalcium [Mass/Vol]8.4 mg/dLLow8.5-10.1FMarymount HospitalChloride [Moles/Vol]104 mmol/T94-676QrgvnpaeoTrihealth Good Samaritan HospitalCO2 [Moles/Vol]29.4 mmol/L21.0-32.0[facility] HospitalCreatinine [Mass/Vol]0.82 mg/dL 0.55-1.02[facility] HospitalGFR/1.73 sq M.predicted MDRD (S/P/Bld) [Vol rate/Area]mL/min/{1.73_m2}>=60 mL/min/1.73m 2FMarymount HospitalGlucose [Mass/Vol]111 mg/yHDjnu68-559YwpehxbgaTrihealth Good Samaritan Hospital Lipase [Catalytic activity/Vol]35.0 U/L16.0-77.0[facility] HospitalPotassium [Moles/Vol]3.4 mmol/LLow3.5-5.1FMarymount Hospital Protein [Mass/Vol]6.9 g/dL6.4-8.2FFairfield Medical Centerodium [Moles/Vol]140 mmol/R828-932AjplltsmrTrihealth Good Samaritan HospitalUrea nitrogen [Mass/Vol]12.0 mg/dL7.0-18.0[facility] HospitalUrea nitrogen/Creatinine [Mass ratio]14.6 mg/mgTrihealth Good Samaritan Hospital Laboratory - Hematology and Cell countson 63-36-7449Kzazhoqi granulocytes/100 WBC (Bld)0.6 %High0.0-0.5FMarymount HospitalLeukocytes [#/volume] corrected for nucleated erythrocytes in Blood by Automated counon 92-87-2284QDX corrected for nucl RBC Auto (Bld) [#/Vol]Leukocytes [#/volume] corrected for nucleated erythrocytes in Blood by Automated coun4.0-11.0[facility] HospitalLymphocytes Auto (Bld) [#/Vol]on 30-09-8523Ybjaxpllcef (Bld) [#/Vol]Lymphocytes [#/volume] in Blood by Automated count1.2-3.8[facility] HospitalLymphocytes/100 WBC Auto (Bld)on 06-10-2024 Lymphocytes/100 WBC (Bld)Lymphocytes/100 leukocytes in Blood by Automated count 20.5-60.0[facility] HospitalH Auto (RBC) [Entitic mass]on 93-28-9512ZCR (RBC) [Entitic mass]MCH [Entitic mass] by Automated count26.7-34.0 [facility] HospitalMCHC Auto (RBC) [Mass/Vol]on 04-15-4485KTFU (RBC) [Mass/Vol]MCHC [Mass/volume] by Automated count29.9-35.2FThe Surgical Hospital at SouthwoodsV Auto (RBC) [Entitic vol]on 22-16-4220VMO (RBC) [Entitic vol] MCV [Entitic volume] by Automated count81.0-99.0[facility] HospitalMonocytes Auto (Bld) [#/Vol]on 73-67-2884Dqlwdnoup (Bld) [#/Vol]Automated blood monocyte count0.3-0.8[facility] HospitalMonocytes/100 WBC Auto (Bld)on 75-99-7738Ghzkfqzno/100 WBC (Bld)Automated monocyte %1.7-12.0 [facility] HospitalNeutrophils Auto (Bld) [#/Vol]on 06-10-2024 Neutrophils (Bld) [#/Vol]Neutrophils [#/volume] in Blood by Automated count 1.4-6.5FMarymount HospitalNeutrophils/100 WBC Auto (Bld)on 91-84-6799Qfewszxxkfx/100 WBC (Bld)Automated neutrophil %43.0-75.0[facility] HospitalNo Panel Informationon 94-15-9468Vusjwuacxoo # (Auto)0.2 10 3/uL0.0-0.7FMarymount HospitalHuman Chorionic Gonadotropin, QualNegativeNEGATIVETrihealth Good Samaritan HospitalImmature Granulocyte # (Auto)0.05 10 3/uLHigh0.00-0.03[facility] HospitalPlatelet mean volume Auto (Bld) [Entitic vol]on 29-68-9804Wadqaqjl mean volume (Bld) [Entitic vol]Platelet mean volume [Entitic volume] in Blood by Automated count9.5-13.5 [facility] HospitalPlatelets Auto (Bld) [#/Vol]on 06-10-2024 Platelets (Bld) [#/Vol]Platelets [#/volume] in Blood by Automated nxcli243-386 [facility] HospitalRBC Auto (Bld) [#/Vol]on 62-58-4960VLD (Bld) [#/Vol]Erythrocytes [#/volume] in Blood by Automated countLow4.20-5.40[facility] Hospitalerum or plasma albumin/globulin mass ratioon 06-10-2024 Albumin/Globulin [Mass ratio]Serum or plasma albumin/globulin mass ratio [facility] Hospitalerum or plasma anion gap determinationon 61-90-4990Zdzmy gap [Moles/Vol]Serum or plasma anion gap determinationTrihealth Good Samaritan HospitalLaboratory - Microbiology and Antimicrobial susceptibilityon 31-39-6720FBYC-CoV-2 (COVID-19) RNA ALEYDA+probe Ql (Unsp spec) NegativeNEGATIVETrihealth Good Samaritan HospitalComment on above:This test has not been FDA cleared or approved, but has beenauthorized by the FDA under an Emergency Use Authorization(EUA) for use by authorized laboratories certified underIA that meet the requirements to perform moderate or highcomplexity testing. This test has been authorized only forthe detection of proteins from SARS-CoV-2, not for any otherviruses or pathogens. The emergency use of this t est isauthorized for the duration of the declaration thatcircumstances exist justifying the authorization ofemergency use of in vitro diagnostic tests for detectionand/or diagnosis of Covid-19 under section 564(b)(1) of theAct, 21 U.S.C. 360bbb-3(b)(1), unless the declaration isterminated or authorization is revoked sooner.No Panel Informationon 51-19-4184Uullong Influenza Type A Antigen NegativeTrihealth Good Samaritan HospitalComment on above:Negative for Flu A protein antigen. Infection due to Flu Acannot be ruled out. Flu A antigen in the sample may bebelow the detection limit of the test.Bedside Influenza Type B AntigenNegativeTrihealth Good Samaritan HospitalComment on above:Negative for Flu B protein antigen. Infection due to Flu Bcannot be ruled out. Flu B antigen in thesample may bebelow the detection limit of the test.CBC AUTO DIFFon 43-46-6768GEDK #0.0 103/ulNormal0.0-0.1The [facility] HospitalComment on above: Performed By: #### CBC #### [facility] [address] [place] [address] Dr. Da GrahamBasophils/100 WBC (Bld)0.3 %Normal0.2-2.0[facility] Comment on above:Performed By: #### CBC #### [facility] [address] [place] [address] Dr. Da Díaz #0.2 103/ulNormal0.0-0.7The [facility] HospitalComment on above: Performed By: #### CBC #### [facility] [address] [place] [address] Dr. Da Ruizosinophils/100 WBC (Bld)2.3 %Normal0.9-7.0[facility] Comment on above:Performed By: #### CBC #### [facility] [address] [place] [address] Dr. Da Ruizrythrocyte distribution width (RBC) [Ratio]11.5 %Nqlsay95.0-15.0 [facility] HospitalComment on above:Performed By: #### CBC #### [facility] [address] [place] [address] Dr. Da GrahamHematocrit (Bld) [Volume fraction]41.0 %Wbtqej74.0-48.0[facility] CenterComment on above:Performed By: #### CBC #### [facility] [address] [place] [address] Dr. Da GrahamHemoglobin (Bld) [Mass/Vol]13.5 g/qQFazruh63.0-16.0The [facility] HospitalComment on above:Performed By: #### CBC #### [facility] [address] [place] [address] Dr. Da Dorado #0.04 10e3/ulCritically high0.00-0.03[facility] Comment on above:Performed By: #### CBC #### [facility] [address] [place] [address] Dr. Da Dorado %0.5 %Normal0.0-0.5The [facility] HospitalComment on above: Performed By: #### CBC #### [facility] [address] [place] [address] Dr. Da Joshua #1.9 103/ulNormal1.2-3.8The [facility] HospitalComment on above:Performed By: #### CBC #### [facility] [address] [place] [address] Dr. Da Roperhocytes/100 WBC (Bld)25.2 %Nmnfob32.5-60.0The [facility] HospitalComment on above:Performed By: #### CBC #### [facility] [address] [place] [address] Dr. Da Marcelo DIFF REQNONormalThe [facility] HospitalComment on above: Performed By: #### CBC #### [facility] [address] [place] [address] Dr. Da Izquierdo (RBC) [Entitic mass]31.6 eoLzsakr39.7-34.0The [facility] HospitalComment on above:Performed By: #### CBC #### [facility] [address] [place] [address] Dr. Da Coronel (RBC) [Mass/Vol]32.9 g/kQPsbrij50.9-35.2The [facility] HospitalComment on above:Performed By: #### CBC #### [facility] [address] [place] [address] Dr. Da Vo (RBC) [Entitic vol]96.0 yRNcjchp62.0-99.0The [facility] HospitalComment on above:Performed By: #### CBC #### [facility] [address] [place] [address] Dr. Da Holguin #0.6 103/ulNormal0.3-0.8The [facility] HospitalComment on above:Performed By: #### CBC #### [facility] [address] [place] [address] Dr. Da Michaudocytes/100 WBC (Bld)7.7 %Normal1.7-12.0The [facility] Comment on above:Performed By: #### CBC #### [facility] [address] [place] [address] Dr. Da Medina #4.8 103/ulNormal1.4-6.5The [facility] [facility] Memorial HospitalComment on above:Performed By: #### CBC #### [facility] [address] [place] [address] Dr. Da Esparzautrophils/100 WBC (Bld)64.0 %Pwuars20.0-75.0The [facility] HospitalComment on above:Performed By: #### CBC #### [facility] [address] [place] [address] Dr. Da Sorensonlet mean volume (Bld) [Entitic vol]11.4 fLNormal9.5-13.5The [facility] HospitalComment on above:Performed By: #### CBC #### [facility] [address] [place] [address] Dr. Da BonillaT247 103/hfQdkeow324-734Acm [facility] HospitalComment on above: Performed By: #### CBC #### [facility] [address] [place] [address] Dr. Da GrahamRBC4.27 106/ulNormal4.20-5.40The [facility] HospitalComment on above:Performed By: #### CBC #### [facility] [address] [place] [address] Dr. Da MckeonBC7.5 103/ulNormal4.0-11.0The [facility] HospitalComment on above: Performed By: #### CBC #### [facility] [address] [place] [address] Dr. Da Jordan 73-11-1827Gxallzve [Mass/Vol]132.0 ng/mLNormal 6.2-137.0The [facility] HospitalComment on above:Performed By: #### FERR #### [facility] [address] [place] [address] Dr. Da GrahamPROF CHEM 8 (BAS METB)on 56-22-2548Depuw gap [Moles/Vol]11.2 mmol/LNormalThe [facility] HospitalComment on above:Performed By: #### BMP #### [facility] [address] [place] [address] Dr. Da GrahamCalcium [Mass/Vol]8.0 mg/dLCritically low8.4-10.2The [facility] HospitalComment on above:Performed By: #### BMP #### [facility] [address] [place] [address] Dr. Da GrahamChloride [Moles/Vol]104 mmol/NCcrnkw35-564Dgs [facility] Comment on above:Performed By: #### BMP #### [facility] [address] [place] [address] Dr. Da GrahamCO2 [Moles/Vol]27.4 mmol/ZPoqfpr46.0-30.0The [facility] Comment on above:Performed By: #### BMP #### [facility] [address] [place] [address] Dr. Da GrahamCreatinine [Mass/Vol]0.66 mg/dLNormal0.52-1.04The [facility] HospitalComment on above:Performed By: #### BMP #### [facility] [address] [place] [address] Dr. Roberson ChangEGFR-AF CZECH>60Normal>=60The [facility] HospitalComment on above:Performed By: #### BMP #### [facility] [address] [place] [address] Dr. Da RuizGFR-NON AF CZECH>60Normal>=60The [facility] HospitalComment on above:Performed By: #### BMP #### [facility] [address] [place] [address] Dr. aD GrahamGlucose [Mass/Vol]129 mg/dLCritically jass23-545Kbx [facility] HospitalComment on above:Performed By: #### BMP #### [facility] [address] [address] [address] Da GrahamPotassium [Moles/Vol]3.6 mmol/LNormal3.4-5.0[facility] Comment on above:Performed By: #### BMP #### [facility] [address] [address] [address] Da GrahamSodium [Moles/Vol]139 mmol/SEdhxfx827-876Eht [facility] Comment on above:Performed By: #### BMP #### [facility] [address] [address] [address] Da GrahamUrea nitrogen [Mass/Vol]10.0 mg/dLNormal7.0-17.0The [facility] HospitalComment on above:Performed By: #### BMP #### [facility] [address] [address] [address] Da Roberts nitrogen/Creatinine [Mass ratio]15.2 mg/mgNormalThe [facility] HospitalComment on above:Performed By: #### BMP #### [facility] [address] [place] [address] Dr. Da Salas [id number] (NCCAP) EVELINE PLATT ([id number]) 1980 F Date Time Provider Department 09/16/20 [...] los*05/13/2020 Encounter Status:Closed by ALYCIA FELIX on 09/17/20[facility] HospitalCNOVSPon [id number] (SP) Office ([place]) EVELINE PLATT ([id number]) 1980 F Date Time Provider Department 06/24/20 2:15 PM BLAKE PATEL During your visit today, we recorded the following information about you: Temperature Pulse Respiration Blood pressure 97.4 degrees 98/minute 16/minute 135/68 Weight Height Last Period 94.1 kg 1.549 m 05/25/20 Blake Patel MD 06/25/2020 6:20 AM Signed NAME: Eveline Platt CLINIC NO.: [id number] DATE OF SERVICE: June 24, 2020 Some elements in this clinic note that are critical to medical decision making have been carefully reviewed and included from a prior clinic note dated: May 13, 2020 Referring Provider: Miranda Botello Additional Clinicians involved in Eveline Platt's [...] also endorses heavy menses. 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 Per HPI and [...] 11.5 Glucose (mg/dL) Date (more content not included)...NormalMercy Health – The Jewish Hospitalp Metabolic Panelon 44-27-4650Tkdadme [Mass/Vol]4.5 g/dLNormal3.9-4.9CSt. [facility] ClevelandALP [Catalytic activity/Vol]86 U/RUnhveb01-697Eepmtcira Clinic ClevelandALT [Catalytic activity/Vol]27 U/LNormal7-38[facility] Hospitalveland Anion gap [Moles/Vol]7 mmol/LLow9-18[facility] ClevelandAST [Catalytic activity/Vol]22 U/CVgpntu11-00Busyznipe Clinic ClevelandBilirubin [Mass/Vol]0.2 mg/dLNormal0.2-1.3ClevelMercy Health St. [facility] ClevelandCalcium [Mass/Vol]9.0 mg/dLNormal 8.5-10.2CSt. [facility] ClevelandChloride [Moles/Vol]106 mmol/MHgeb18-400 [facility] ClevelandCO2 [Moles/Vol]25 mmol/IArlbao77-04JcfvqtwekShelby Memorial HospitalCreatinine [Mass/Vol]0.64 mg/dLNormal0.58-0.96Shelby Memorial HospitaleGFR- Amer.>60NormalCBlanchard Valley Health System Bluffton HospitaleGFR-All Other Races>60NormalCBlanchard Valley Health System Bluffton HospitalComment on above:Result Comment: eGFR (Estimated GFR) Units of measure: [...] the eGFR may not accurately reflect actual GFR.Glucose [Mass/Vol]101 mg/dLHigh 74-99[facility] on above:Result Comment: The [place] Diabetes Association (ADA) provides guidance for cutoff [...] Standards of Medical Care in Diabetes 2016, [place] Diabetes Association. Diabetes Care. 2016.39(Suppl 1).Potassium [Moles/Vol]3.9 mmol/L Normal3.7-5.1CBlanchard Valley Health System Bluffton HospitalProtein [Mass/Vol]7.1 g/dLNormal6.3-8.0 [facility] Memorial HospitalSodium [Moles/Vol]138 mmol/NNvadbd902-077MngdpzybzShelby Memorial HospitalUrea nitrogen [Mass/Vol]10 mg/dLNormal7-21S[facility] Memorial HospitalFerritinon 43-92-4445Wotaysyd [Mass/Vol]64.2 ng/jBOweedf45.7-205.1 [facility] HospitalCombronson methodist hospital on above:Performed By: #### FERR, IRON #### [address] [address] Ljpo and TIBCon 97-72-1782Qjvh [Mass/Vol]43 ug/jDIjzary00-430 [facility] on above:Performed By: #### FERR, IRON #### [address] [address] JSZB179 ug/dODssjtn449-387NodsozulzSalem Regional Medical Center on above:Performed By: #### FERR, IRON #### [address] [phone] Xixlerwe44 %Xet43-86GaxbufjnpShelby Memorial HospitalCombronson methodist hospital on above:Performed By: #### FERR, IRON #### [address] [address] Vasygh CBCDIF (for [facility] use only)on 00-11-3259Sal Baso<0.03Normal <0.11CBlanchard Valley Health System Bluffton HospitalAbs Mono0.76 k/uLNormal<0.87Shelby Memorial HospitalAbs Neut4.47 k/uLNormal1.45-7.50S[facility] Memorial HospitalAbsolute nRBC <0.01Normal<0.01S[facility] Memorial HospitalBasophils/100 WBC (Bld)0.3 %Normal Shelby Memorial HospitalDTYPEAuto DiffNormalCBlanchard Valley [facility] Hospital Eosinophils (Bld) [#/Vol]0.13 10*3/uLNormal<0.46[facility] Eosinophils/100 WBC (Bld)1.9 %NormalShelby Memorial HospitalErythrocyte distribution width (RBC) [Ratio]13.2 %Jgmftf83.5-15.0[facility] Hematocrit (Bld) [Volume fraction]40.6 %Qawaqc20.0-46.0S[facility] Memorial HospitalHemoglobin (Bld) [Mass/Vol]13.1 g/cKFrrttf24.5-15.5CBlanchard Valley Health System Bluffton HospitalLymphocytes (Bld) [#/Vol]1.60 10*3/uLNormal1.00-4.00[facility] HospitalLymphocytes/100 WBC (Bld)22.9 %NormalShelby Memorial HospitalMCH29.4 gZRjbzif44.0-34.0[facility] Memorial HospitalMCHC (RBC) [Mass/Vol]32.3 g/dLNormal 30.5-36.0[facility] HospitalV (RBC) [Entitic vol]91.2 fLNormal 80.0-100.0[facility] HospitalMonocytes/100 WBC (Bld)10.9 %NormalShelby Memorial HospitalNeutrophils/100 WBC (Bld)64.0 %NormalShelby Memorial Hospital NRBCs0.0 /100 RNNFuavci2YewhwotheShelby Memorial HospitalPlatelet mean volume (Bld) [Entitic vol]11.5 fLNormal9.0-12.7CBlanchard Valley Health System Bluffton HospitalPlatelets (Bld) [#/Vol]235 10*3/lVLqpsvx098-305TzxyebdjiShelby Memorial HospitalRBC (Bld) [#/Vol]4.45 10*6/uLNormal3.90-5.20S[facility] Memorial HospitalWBC (Bld) [#/Vol]6.98 10*3/uL Normal3.70-11.00[facility] HospitalCNOVSPon 77-69-5136OBFLYIBytxx (SP) Office ([place]) EVELINE PLATT ([id number]) 1980 F Date Time Provider Department 05/13/20 11:15 AM BLAKE PATEL During your visit today, we recorded the following information about you: Temperature Pulse Respiration Blood pressure 97.3 degrees 79/minute 18/minute 142/87 Weight Height 92.6 kg 1.549 m Blake Patel MD 05/13/2020 12:21 PM Signed NAME: Eveline Platt NO.: [id number] DATE OF SERVICE: May 13, 2020 Referring Provider: Miranda Botello Consultation requested by Dr. Botello for [...] also endorses heavy menses. 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 Per HPI and [...] [facility] Maricarmen (more content not included)...NormalShelby Memorial Hospital Comp Metabolic Panelon 18-53-5093Duxwrml [Mass/Vol]4.4 g/dLNormal3.9-4.9 [facility] memorial hospitalALP [Catalytic activity/Vol]81 U/IVqyvqv01-625 [facility] HospitalALT [Catalytic activity/Vol]38 U/LNormal7-38[facility] HospitalAnion gap [Moles/Vol]7 mmol/LLow9-18[facility] AST [Catalytic activity/Vol]29 U/PFpxubt73-71JlfkivtawShelby Memorial HospitalBilirubin [Mass/Vol]0.3 mg/dLNormal0.2-1.3CSt. [facility] Clefayette county memorial hospitalCalcium [Mass/Vol]9.2 mg/dLNormal8.5-10.2CBlanchard Valley Health System Bluffton HospitalChloride [Moles/Vol]105 mmol/L Ilslys24-032BzbtgftkuShelby Memorial HospitalCO2 [Moles/Vol]27 mmol/DEtzkmv99-25 [facility] HospitalCreatinine [Mass/Vol]0.69 mg/dLNormal0.58-0.96 [facility] HospitaleGFR- Amer.>60NormalCBlanchard [facility] eGFR-All Other Races>60NormalCBlanchard Valley Health System Bluffton HospitalComment on above:Result Comment: eGFR (Estimated GFR) Units of measure: [...] the eGFR may not accurately reflect actual GFR.Glucose [Mass/Vol]127 mg/dLHigh 74-99[facility] on above:Result Comment: The [place] Diabetes Association (ADA) provides guidance for cutoff [...] Standards of Medical Care in Diabetes 2016, [place] Diabetes Association. Diabetes Care. 2016.39(Suppl 1).Potassium [Moles/Vol]4.2 mmol/L Normal3.7-5.1CBlanchard Valley Health System Bluffton HospitalProtein [Mass/Vol]7.1 g/dLNormal6.3-8.0 [facility] Memorial HospitalSodium [Moles/Vol]139 mmol/QInmzdt482-931WpoaqgtbjShelby Memorial HospitalUrea nitrogen [Mass/Vol]9 mg/dLNormal7-21[facility] Memorial HospitalFerritinon 03-04-8724Ccvshtjj [Mass/Vol]45.5 ng/lGCohgxt09.7-205.1 [facility] on above:Performed By: #### FERR, IRON #### [facility] [address] [address] Njwj and TIBCon 47-96-5161Faxo [Mass/Vol]85 ug/iVGinewz82-342 [facility] on above:Performed By: #### FERR, IRON #### [address] [place], [place] [address] NDOA262 ug/fMZluxep334-070MqsorwoigSalem Regional Medical Center on above:Performed By: #### FERR, IRON #### [address] [place], [place] [address] Eyoqrkcfmcs Fvsukiyz23 %Zjifwp96-95OfwqxhbcgSalem Regional Medical Center on above:Performed By: #### FERR, IRON #### [facility] [address] [address] Ixwylo CBCDIF (for [facility] use only)on 44-50-4411Clg Baso<0.03Normal <0.11CBlanchard Valley Health System Bluffton HospitalAbs Mono0.64 k/uLNormal<0.87S[facility] Memorial HospitalAbs Neut3.85 k/uLNormal1.45-7.50S[facility] Memorial HospitalAbsolute nRBC <0.01Normal<0.01S[facility] Memorial HospitalBasophils/100 WBC (Bld)0.3 %Normal [facility] Memorial HospitalDTYPEAuto DiffNormalCBlanchard [facility] Eosinophils (Bld) [#/Vol]0.19 10*3/uLNormal<0.46[facility] Eosinophils/100 WBC (Bld)3.3 %NormalShelby Memorial HospitalErythrocyte distribution width (RBC) [Ratio]13.4 %Haqply43.5-15.0[facility] Hematocrit (Bld) [Volume fraction]38.8 %Drnjzr82.0-46.0S[facility] Memorial HospitalHemoglobin (Bld) [Mass/Vol]12.7 g/hCJnqqet87.5-15.5CBlanchard Valley Health System Bluffton HospitalLymphocytes (Bld) [#/Vol]1.05 10*3/uLNormal1.00-4.00S[facility] Memorial HospitalLymphocytes/100 WBC (Bld)18.2 %NormalShelby Memorial HospitalMCH29.5 yUZjypwj08.0-34.0S[facility] Memorial HospitalMCHC (RBC) [Mass/Vol]32.7 g/dLNormal 30.5-36.0S[facility] Memorial HospitalMCV (RBC) [Entitic vol]90.2 fLNormal 80.0-100.0[facility] HospitalMonocytes/100 WBC (Bld)11.1 %NormalShelby Memorial HospitalNeutrophils/100 WBC (Bld)67.1 %NormalShelby Memorial Hospital NRBCs0.0 /100 RPBHrvfcd2RuwgctwnlShelby Memorial HospitalPlatelet mean volume (Bld) [Entitic vol]11.2 fLNormal9.0-12.7CSt. [facility] Clefayette county memorial hospitalPlatelets (Bld) [#/Vol]240 10*3/pQRszxnf319-528LrowgenuqShelby Memorial HospitalRBC (Bld) [#/Vol]4.30 10*6/uLNormal3.90-5.20S[facility] Memorial HospitalWBC (Bld) [#/Vol]5.77 10*3/uL Normal3.70-11.00S[facility]by Memorial HospitalCoding Summaryon 93-09-7242Nuifbr SummaryCODING DATE: 01/22/2019 [facility] STATUS: Home 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 APC [...] PROC APC STAT DESCRIPTION DOCTOR NAME DATE 28299 5361 J1 Laparoscopy, surgical; Eliezer Torres DO with removal of adnexal structures (partial or total oophorectomy and/or salpingectomy) RT Right side (used to identify procedures performed on the right side of the body) 36670 5361 J1 Laparoscopy, surgical; Eliezer Torres DO [...] By: Awilda Edouard Date Saved: 01/22/2019 10:54 [facility] - AP Resultson 91-17-8274Ypt - AP [id number]#1.00OTGTIFF [facility] Postoperative Recordon 27-51-2196PVGZ Postoperative RecordMAGR Phase II Record Summary Primary Physician: Eliezer Torres DO Finalized Date/Time: 01/21/19 13:15:02 Pt. Name: EVELINE PLATT/Sex: 1980 FEMALE Med Rec #: [id number] Physician: Eliezer Torres DO Financial #: [id number] Pt. Type: D Room/Bed: / Admit/Disch: 01/15/19 08:48:00 - 01/15/19 15:57:00 Institution: [facility] II Case Times MAGR Pre-Care Text: Patient is free from s/s of injury. Patient remains free from compromised physical state related tosurgery or anesthesia. Patient comfort maintained. Patient/family verbalize [...] Signatures Signed By: Brittany Soler RN 01/21/19 13:15NMarietta Memorial HospitalPathology Sendout Teston 66-82-5819Mregkdcmu Send Out.See ReportMercy Health St. Vincent Medical CenterComment on above:Order Comment: Right fallopian tube and right ovaryPost op Dx: Pelvic pain Performed By: #### [id number] ####[facility] (DEFAULT)[address] [place], [place] [address]History and Physicalon 24-28-3041Wkwmrpa and [id number]#1.00OTSumma Health Barberton CampusOperative Report - Surgeon/Physicianon 03-03-9598Mzhusncsm Report - Surgeon/[id number]#1.00OTGTHarrison Community HospitalProvider Orderson 77-60-0951Jihwghuq Orders [id number]#1.00OTGTVan Wert County Hospital Consent Formson 91-77-1705Gncvmlt Forms [id number]#1.00OTGTVan Wert County HospitalMAGR Intraoperative Recordon [id number] Intraoperative RecordMAGR Intra-Op Record Summary Primary Physician: Eliezer Torres DO Finalized Date/Time: 01/16/19 15:11:50 Pt. Name: KAYLIN PLATTABRAM Muñoz/Sex: 1980 FEMALE Med Rec #: [id number] Physician: Eliezer Torres DO Financial #: [id number] Pt. Type: D Room/Bed: / Admit/Disch: 01/15/19 [...] Role Performed Surgeon - Primary Anesthesiologist of Railroad Wheels And Axles Inspector Record Time In 01/15/19 11:36:00 01/15/19 11:36:00 [...] M Role Performed Scrub Personnel Scrub Personnel Paid Search Analyst Time In 01/15/19 11:36:00 01/15/19 11:36:00 01/15/19 11:36:00 Time Out 01/15/19 13:26:00 01/15/19 13:26:00 01/15/19 13:26:00 Procedure Tubal Ligation Tubal Ligation Tubal Ligation Laparoscopic Laparoscopic Laparoscopic Last Modified By: Rodriguez LEE, Bianka Frias RN, Bianka Meyer RN 01/15/19 13:34:13 01/15/19 13:34:13 01/15/19 13:32:06 Entry 7 Case Attendee Brittany Guthrie RN Role Performed [employer] Inspector Time In 01/15/19 11:36:00 Time Out 01/15/19 [...] Uncrossed? Yes Press Points Checked Yes Additional [place] Pad Positioning Device Safety Strap Information Outcome Met (O.80) Yes Last Modified By: Bianka Frias RN 01/15/19 12:19:08 Post-Care Text: E.290 Evaluates musculoskeletal status O.80 Patient is free from signs and symptoms of injury related to positioning Skin Prep MAGR Pre-Care Text: A.30 Verifies allergies Im.270 Performs skin preparation Im.270.1 Implements protective measures toprevent skin and tissue injury due to chemical [...] regulation A.40 Verifies presence of prosthetics or correctivedevices Im.280 Implements thermoregulation measures Im.60 Uses supplies [...] Signatures Signed By: Bianka Frias RN 01/16/19 15:11[facility] Vincent Medical CenterOperative Report - Surgeon/Physicianon [id number] Report - Surgeon/PhysicianDATE OF PROCEDURE: 01/15/19 SURGEON: Eliezer Torres DO ANESTHESIA: Tray Gill MD (General) PREOPERATIVE DIAGNOSIS: Pelvic pain. POSTOPERATIVE DIAGNOSIS: 1. Pelvic pain. 2. Pending pathology. PROCEDURES: 1. Diagnostic laparoscopy. 2. Operative laparoscopy. 3. Left ovary cystectomy x2. 4. Right salpingo-oophorectomy. 5. Bowel adhesiolysis. 6. Repair of cervix [...] years ago from a laparoscopy. Next, an [place] uterine manipulator was advanced into the cervix [...] a subcuticular manner on the skin. The [place] uterine manipulator was then removed from the [...] stable condition. Eliezer Torres DO JOB #: [id number] [Electronically Signed on: 01/21/2019 09:10 EST] Eliezer Torres DO [Verified on: 01/21/2019 09:10 EST] Eliezer Torres DO [Transcribed on: 01/16/2019 10:53 EDT] [facility] HospitalTelemetry Stripson 90-84-1399Glfceshqa Strips [id number]#1.00OTGTVan Wert County Hospital Anesthesia Noteon 27-92-9626Hdmeejxcyg NotePatient: EVELINE PLATT Age: 38 years Sex: FEMALE : 1980 Associated Diagnoses: None Author: Tray Gill MD Preoperative Information Anesthesia history: Patient history: No difficult intubation, No malignant hyperthermia. Family history: No malignant hyperthermia. Review of Systems Respiratory: No shortness of breath, No apnea. Cardiovascular: No known MD, No chest pain. Gastrointestinal: Heartburn. Health Status Allergies: Allergic Reactions (All) No known allergies Current medications: Home Medications (1) Active pantoprazole 40 mg oral delayed release tablet 40 mg = 1 tab(s), PO, BID Problem list (past medical history): All Problems Right ovarian cyst / SNOMED CT 409542400 / Confirmed DDD (degenerative disc disease), lumbosacral / SNOMED CT 465285042 / Confirmed Eye symptom / SNOMED CT 6144126050 / Confirmed GERD (gastroesophageal reflux disease) / SNOMED CT 966629269 / Confirmed Resolved: Chest pain / SNOMED CT 71460209 Resolved: Palpitations / SNOMED CT 534275932 Canceled: DDD (degenerative disc disease), thoracic / SNOMED CT 227515385 Histories Family History: Esophagus Mother Comments: 04/26/2017 16:57 Aicha Wasserman RN esophagus extra long Kidney Brother Comments: 04/26/2017 16:57 Aicha Wasserman RN kidney transplant Thyroid disease Mother Brother Diabetes mellitus type I Father Brain tumor Mother High blood pressure Father Brother Osteoarthritis Mother Coronary heart disease Father Procedure history: Polypectomy of cervix (984587443) on 04/26/2017 at 36 Years. Comments: 01/02/2019 13:19 Haritha Barger RN ovarian cyst. Patient stated laceration under cervix also with repair Dilation and curettage (06995632) on 03/20/2010 at 29 Years. Comments: 04/26/2017 16:00 Aicha Wasserman hemorrhaged 1 hour after procedure was done Dilation and curettage (65948457). Arthroscopy of knee (067007605). Comments: 01/02/2019 13:00 Haritha Barger RN left [...] U Preg Negative . Laboratory Results Plan [place] Society of Anesthesiologists#(ASA) physical status classification: Class II. Anesthetic Preoperative Plan Anesthesia: General. . Anesthetic plan, risks, benefits, and alternatives discussed with the patient and/or family. Patient verbalized understanding. Family/Guardian present. Informed consent was given. Consent was signed by the patient. [Electronically Signed on: 01/15/2019 12:03 EDT] Tray Gill MD [Verified on: 01/15/2019 12:03 EDT] Tray Gill MDMercy Health St. Vincent Medical CenterInpatient Patient Summaryon 01-15-2019 [place] [address] Patient Discharge Instructions Name: PLATT EVELINE M : 1980 Patient Address: [address] [place] [address] Primary Care Provider: Name: Miranda Botello MD After you are discharged if you find you have any questions, please, call [phone] ext [phone] to speak to a nurse. Discharge Diagnosis: Pelvic pain Prescription Information: If you have been given a prescription for narcotics, seek immediate medical attention if you have any difficulty breathing or any sudden status changes such as confusion andsleepiness. If you or anyone you know is experiencing suicidal thoughts, mental health, alcohol and/or drug addiction problems; contact the [facility] 10/10 Crisis Hotline -Text 4HKNB hy 929891. If you received any narcotics, sedation, or [...] business decisions or sign any legal documents [facility] would like to thank you for allowing us to assist you with your healthcare needs.The following includes patient education materials and information regarding your injury/illness. EVELINE PLATT has been given the following list of follow-up instructions, prescriptions, and patient education materials: Follow-up Instructions With: Address: When: Eliezer Vivaron [address] [place] [id number] Business (1) In 2 weeks 01/29/2019 With: Address: When: Miranda Botello [address] [place], [place] [id number] Business (1) Medications During the course of your visit, your medication list was updated with the most current information. The details of those changes are reflected below: New Medications Printed Prescriptions acetaminophen-hydrocodone (Skandia 5 mg-325 mg oral tablet) 1 tab(s) Oral Every 6 hours as needed forpain. may take 1 or 2 tablets not [...] list that you can keep with you. acetaminophen-hydrocodone (Skandia 5 mg-325 mg oral tablet) 1 tab(s) Oral Every 6 hours as needed forpain. may take 1 or 2 tablets not [...] and abdomen. HOME CARE INSTRUCTIONS ? Take vroj-fyb-sryriyq and prescription medicines only as told by [...] and water are not available, use hand executive talent acquisition consultant. ? Change your dressings (Band Aids) daily [...] provider. Document Released: 02/15/2016 Document Reviewed: 02/15/2016 [employer] Interactive Patient Education ?2015 [email or web address]. Viruses or Bacteria What?s got you sick? [...] Centers for Disease Control and Prevention November [address] MAGR PACU Recordon 14-12-1263USUZ PACU RecordMAGR PACU Record Summary Primary Physician: Eliezer Torres DO Finalized Date/Time: 01/15/19 14:27:14 Pt. Name: EVELINE PLATT/Sex: 1980 FEMALE Med Rec #: [id number] Physician: Eliezer Torres DO Financial #: [id number] Pt. Type: D Room/Bed: / Admit/Disch: 01/15/19 [...] Signatures Signed By: Paty Anne RN 01/15/19 14:27[facility] CenterMA Preoperative Recordon [id number] Preoperative RecordMAGR Pre-Op Record Summary Primary Physician: Eliezer Torres DO Finalized Date/Time: 01/15/19 12:44:26 Pt. Name: EVELINE PLATT /Sex: 1980 FEMALE Med Rec #: [id number] Physician: Eliezer Torres DO Financial #: [id number] Pt. Type: D Room/Bed: / Admit/Disch: 01/15/19 [...] ready for surgery. The patient remains free froms/s of injury. Patient/family express understanding of plan of care and participate in decisions affectinghis or her perioperrative plan of care. Allergies documented appropriately. Patient identifiers and consent correct. General Comments: Pt arrived ambulatory to psw. Denies SOB,chest pain, fever, sleep apnea, or pacemaker. Finalized By: Bianka Frias RN Document Signatures Signed By: Bianka Frias RN 01/15/19 12:44NoHolzer HospitalPatient Handouton [id number] HandoutDiagnostic Laparoscopy, Care After Refer to this sheet [...] and abdomen. HOME CARE INSTRUCTIONS ? Take cund-aya-gbglsfk and prescription medicines only as told by [...] and water are not available, use hand executive talent acquisition consultant. ? Change your dressings (Band Aids) daily [...] provider. Document Released: 02/15/2016 Document Reviewed: 02/15/2016 [employer] Interactive Patient Education ?[address] [employer] CenterPregnancy Test Urine 1on 01-15-2019 [facility] Comment on above:Performed By: #### [id number] #### [facility] (DEFAULT) [address] [place] [address] [id number] Preg Internal ControlPassFisher-Titus Medical Center HospitalComment on above:Performed By: #### [id number] #### [facility] (DEFAULT) [address] [place] [address] [id number] Note - Nurseon 34-12-0665Wfpfhopl Note - NursePre op phone call complete. Spoke with patient, confirmed time of arrival for 0900 on 01/14/19 [Electronically Signed on: 01/14/2019 10:13 EDT] Haritha Lee RN [Verified on: 01/14/2019 10:13 EDT] Haritha Lee RNMercy Health St. Vincent Medical CenterABORhon [id number] and Rh group Nom (Bld)Hx Check: Found Anti-A: 0 Anti-B: 0 Anti-D: 4+ DCon: NT A1: 4+ B: 4+ ABORh Interp: O POSCleveland Clinic [facility] HospitalComment on above:Performed By: #### [id number], [id number], [id number], [id number] #### [facility] (DEFAULT) [address] [place] [address] 19636HEZD Gelon 57-77-1808MVLE GelNegativeFisher-Titus Medical Center HospitalComment on above:Performed By: #### [id number], [id number], [id number], [id number] #### [facility] (DEFAULT) [address] [place] [address] 68905Jyfqt Bank IDon [id number] Bank IDBBID: [id number] [facility] HospitalComment on above:Performed By: #### [id number], [id number], [id number], [id number] #### [facility] (DEFAULT) [address] [place] [address] 18402Znvvl 37-64-3576Porcdxkues (Bld) [Mass/Vol]13.9 g/dLNormal 11.3-15.9Access Hospital DaytonComment on above:Performed By: #### [id number], [id number], [id number], [id number] #### [facility] (DEFAULT) [address] [place] [address] 02042Xoojlg Summaryon 24-01-6032Wnqwkm SummaryCODING DATE: 01/10/2019 [facility] STATUS: Home 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 ADMIT [...] By: Bianka Silva Date Saved: 01/10/2019 04:33 pmNMarietta Memorial HospitalProvider Orderson 99-01-9238Cvetapit [id number]#1.00OTGTIFF [facility].Auto Diff 1on 77-58-3888Fhdg Williamson %9 %Normal1-12Access Hospital DaytonComment on above:Performed By: #### [id number], [id number] #### [facility] (DEFAULT) [address] [place] [address] 91210Ewjm Abs#0.0 a21Chmwmo9.0-0.2[facility] HospitalComment on above:Performed By: #### [id number], [id number] #### [facility] (DEFAULT) [address] [place] [address] 12589Gotovwqpv/100 WBC (Bld)0.4 %Normal0.2-2.0[facility] Comment on above:Performed By: #### [id number], [id number] #### [facility] (DEFAULT) [address] [place] [address] 21394Zzz Abs#0.1 a40Dxgldq0.0-0.4[facility] HospitalComment on above:Performed By: #### [id number], [id number] #### [facility] (DEFAULT) [address] [place] [address] 41826Breztyeusnk/100 WBC (Bld)1.7 %Normal0.9-4.0[facility] HospitalComment on above:Performed By: #### [id number], [id number] #### [facility] (DEFAULT) [address] [place] [address] 12187Ybknketpgdv (Bld) [#/Vol]1.4 u56Ovcybu9.3-2.9[facility] HospitalComment on above:Performed By: #### [id number], [id number] #### [facility] (DEFAULT) [address] [place] [address] 08322Dwzqmmtrbww/100 WBC (Bld)26 %Aqrlbu16-04Gpbobwis Hospital Comment on above:Performed By: #### [id number], [id number] #### [facility] (DEFAULT) [address] [place] [address] 30695Wacq Abs#0.5 e26Zsumcs6.0-0.8[facility] HospitalComment on above:Performed By: #### [id number], [id number] #### [facility] (DEFAULT) [address] [place] [address] 54317Tfnc Abs#3.3 g74Xljfoq9.5-9.2Magrcleveland clinic mentor hospital HospitalComment on above:Performed By: #### [id number], [id number] #### [facility] (DEFAULT) [address] [place] [address] 80318Ztkpczqopdo/100 WBC (Bld)63 %Lcezbj22-44Sikwbhzl Hospital Comment on above:Performed By: #### [id number], [id number] #### [facility] (DEFAULT) [address] [place] [address] 11214VSJ w/ Auto Diffon 54-74-8312Cvfrwzjzwkl distribution width (RBC) [Ratio]12.6 %Cxgama65.5-15.0Access Hospital DaytonComment on above: Performed By: #### [id number], [id number] #### [facility] (DEFAULT) [address] [place] [address] 47288Dpvveemgba (Bld) [Volume fraction]39.8 %Wpsmim32.7-40.4 [facility] HospitalComment on above:Performed By: #### [id number], [id number] #### [facility] (DEFAULT) [address] [place] [address] 85959Nhkrgfudxp (Bld) [Mass/Vol]13.2 g/bOYcodit20.3-15.9 [facility] DaytonComment on above:Performed By: #### [id number], [id number] #### [facility] (DEFAULT) [address] [place] [address] 80877Oya Diff?AutoNormalAccess Hospital DaytonComment on above: Performed By: #### [id number], [id number] #### [facility] (DEFAULT) [address] [place] [address] 24061CUG (RBC) [Entitic mass]31 tmEdfimk53-21Agkwwohl Hospital Comment on above:Performed By: #### [id number], [id number] #### [facility] (DEFAULT) [address] [place] [address] 32054JIIX (RBC) [Mass/Vol]33 g/zJQnibve74-97Zktpjbrv Hospital Comment on above:Performed By: #### [id number], [id number] #### [facility] (DEFAULT) [address] [place] [address] 24792DMR (RBC) [Entitic vol]93 uSYqeyad03-435Ettiiunl Hospital Comment on above:Performed By: #### [id number], [id number] #### [facility] (DEFAULT) [address] [place] [address] 01567Pbdlnqog mean volume (Bld) [Entitic vol]11.2 fLHigh 6.3-10.2[facility] HospitalComment on above:Performed By: #### [id number], [id number] #### [facility] (DEFAULT) [address] [place] [address] 87016Qbjyhziwp (Bld) [#/Vol]242 h88Rugbtk338-093Vkbgxqmm HospitalComment on above:Performed By: #### [id number], [id number] #### [facility] (DEFAULT) [address] [place] [address] 16682ESF (Bld) [#/Vol]4.26 g53Wrdkdz5.70-5.30[facility] Comment on above:Performed By: #### [id number], [id number] #### [facility] (DEFAULT) [address] [place] [address] 83572DUZ (Bld) [#/Vol]5.2 x49Bvzsbr1.5-10.5[facility] Comment on above:Performed By: #### [id number], [id number] #### [facility] (DEFAULT) [address] [place] [address] 01651GQTUY METABOLIC PANELon 90-58-0304Kqnrmen [Mass/Vol]8.8 mg/dLNormal8.6-10.3The [facility] HospitalComment on above:Order Comment: No: Do not add to previous drawPerformed By: #### 97165, 32232 #### [facility] [address] [place] [address], USAChloride [Moles/Vol]108 mmol/HAobc13-593Cth [facility] HospitalComment on above:Order Comment: No: Do not add to previous drawPerformed By: #### 60698, 67386 #### [facility] [address] [place] [address], USACO2 [Moles/Vol]23 mmol/YHsemuo64-30Flv [facility] HospitalComment on above:Order Comment: No: Do not add to previous draw Performed By: #### 21310, 87552 #### [facility] [address] [place] [address], USACreatinine [Mass/Vol]0.59 mg/dLLow0.60-1.20The [facility] HospitalComment on above:Order Comment: No: Do not add to previous drawPerformed By: #### 94767, 97584 #### [facility] [address] [place] [address], USAGFR/1.73 sq M predicted among blacks MDRD (S/P/Bld) [Vol rate/Area]mL/min/{1.73_m2}Normal>60[facility] Comment on above:Order Comment: No: Do not add to previous drawPerformed By: #### 50387, 21766 #### [facility] [address] [place] [address], USAGFR/1.73 sq M predicted among non-blacks MDRD (S/P/Bld) [Vol rate/Area]mL/min/{1.73_m2}Normal>60The [facility] Comment on above:Order Comment: No: Do not add to previous drawPerformed By: #### 86690, 24853 #### [facility] [address] [place] [address], USAGlucose [Mass/Vol]272 mg/eXRubr06-290Doz [facility] HospitalComment on above:Order Comment: No: Do not add to previous drawPerformed By: #### 06686, 03619 #### [facility] [address] [place] [address], USAPotassium [Moles/Vol]3.6 mmol/LNormal3.5-5.1The [facility] HospitalComment on above:Order Comment: No: Do not add to previous drawPerformed By: #### 43577, 17339 #### [facility] [address] [place] [address], USASodium [Moles/Vol]137 mmol/SQlniia373-864Lfx [facility] HospitalComment on above:Order Comment: No: Do not add to previous drawPerformed By: #### 43890, 52723 #### [facility] [address] [place] [address], USAUrea nitrogen [Mass/Vol]17 mg/dLNormal7-25The [facility] HospitalComment on above:Order Comment: No: Do not add to previous drawPerformed By: #### 24505, 93226 #### [facility] [address] [place] [address], USACBC COMPLETE BLOOD COUNTon 84-20-1876Fvpniqrlvol distribution width (RBC) [Ratio]13.0 %Plojwq06.5-15.0The [facility] HospitalComment on above:Order Comment: No: Do not add to previous draw Performed By: #### 48929, 47095 #### [facility] [address] [place] [address], USAHematocrit (Bld) [Volume fraction]40.2 %Ovteqt18.0-45.0The [facility] HospitalComment on above:Order Comment: No: Do not add to previous drawPerformed By: #### 57320, 54439 #### [facility] [address] [place] [address], USAHemoglobin (Bld) [Mass/Vol]13.1 g/sBQdmavt42.0-15.0The [facility] HospitalComment on above:Order Comment: No: Do not add to previous drawPerformed By: #### 33622, 14383 #### [facility] [address] [place] [address], USAMCH (RBC) [Entitic mass]30.7 afOvbgdo05.0-33.0The [facility] HospitalComment on above:Order Comment: No: Do not add to previous drawPerformed By: #### 48963, 35417 #### [facility] [address] [place] [address], USAMCHC (RBC) [Mass/Vol]32.6 g/uWXvohls20.0-35.0The [facility] HospitalComment on above:Order Comment: No: Do not add to previous drawPerformed By: #### 62956, 64781 #### [facility] [address] [place] [address], USAMCV (RBC) [Entitic vol]94.1 sGLesygq37.0-98.0The [facility] HospitalComment on above:Order Comment: No: Do not add to previous drawPerformed By: #### 67282, 27439 #### [facility] [address] [place] [id number], USANucleated RBC/100 WBC (Bld) [Ratio]0 %Normal0-0The [facility] HospitalComment on above:Order Comment: No: Do not add to previous drawPerformed By: #### 99643, 39893 #### [facility] [address] [place] [address], USAPLAT KIP329 10*3/cRQnyrlr395-376Vks [facility] HospitalComment on above:Order Comment: No: Do not add to previous draw Performed By: #### 80581, 25070 #### [facility] [address] [place] [address], USARBC (Bld) [#/Vol]4.27 10*6/uLNormal3.80-5.00The [facility] HospitalComment on above:Order Comment: No: Do not add to previous drawPerformed By: #### 31822, 48216 #### [facility] [address] [place] [address], USAWBC (Bld) [#/Vol]16.78 10*3/uLHigh4.00-10.60The [facility] HospitalComment on above:Order Comment: No: Do not add to previous drawPerformed By: #### 98237, 19339 #### [facility] [address] [place] [address], USABASIC METABOLIC PANELon 66-09-9955Dodlmnf [Mass/Vol]9.4 mg/dLNormal8.6-10.3The [facility] HospitalComment on above:Order Comment: No: Do not add to previous drawPerformed By: #### 18719, 90464 #### [facility] [address] [place] [address], USAChloride [Moles/Vol]105 mmol/NAivzwj65-706Ksx [facility] HospitalComment on above:Order Comment: No: Do not add to previous drawPerformed By: #### 49109, 07378 #### [facility] [address] [place] [address], USACO2 [Moles/Vol]22 mmol/PUwxhzy97-76Enj [facility] HospitalComment on above:Order Comment: No: Do not add to previous draw Performed By: #### 64504, 48279 #### [facility] [address] [place] [address], USACreatinine [Mass/Vol]0.51 mg/dLLow0.60-1.20The [facility] HospitalComment on above:Order Comment: No: Do not add to previous drawPerformed By: #### 78658, 48508 #### [facility] [address] [place] [address], USAGFR/1.73 sq M predicted among blacks MDRD (S/P/Bld) [Vol rate/Area]mL/min/{1.73_m2}Normal>60The [facility] Comment on above:Order Comment: No: Do not add to previous drawPerformed By: #### 92281, 95921 #### [facility] [address] [place] [address], USAGFR/1.73 sq M predicted among non-blacks MDRD (S/P/Bld) [Vol rate/Area]mL/min/{1.73_m2}Normal>60The [facility] Comment on above:Order Comment: No: Do not add to previous drawPerformed By: #### 40593, 05715 #### [facility] [address] [place] [address], USAGlucose [Mass/Vol]187 mg/tOWqju47-749Ezy [facility] HospitalComment on above:Order Comment: No: Do not add to previous drawPerformed By: #### 08900, 16052 #### [facility] [address] [place] [address], USAPotassium [Moles/Vol]3.6 mmol/LNormal3.5-5.1The [facility] HospitalComment on above:Order Comment: No: Do not add to previous drawPerformed By: #### 23511, 27899 #### [facility] [address] [place] [address], USASodium [Moles/Vol]136 mmol/GUvewth958-943Rgy [facility] HospitalComment on above:Order Comment: No: Do not add to previous drawPerformed By: #### 99383, 21066 #### [facility] [address] [place] [address], USAUrea nitrogen [Mass/Vol]12 mg/dLNormal7-25The [facility] HospitalComment on above:Order Comment: No: Do not add to previous drawPerformed By: #### 66769, 90199 #### [facility] [address] [place] [address], USACBC COMPLETE BLOOD COUNTon 45-66-4884Ysyhhuwwzmy distribution width (RBC) [Ratio]12.7 %Vhbrqj00.5-15.0The [facility] HospitalComment on above:Order Comment: No: Do not add to previous draw Performed By: #### 40054, 48855 #### [facility] [address] [place] [address], USAHematocrit (Bld) [Volume fraction]40.8 %Ulscuy71.0-45.0The [facility] HospitalComment on above:Order Comment: No: Do not add to previous drawPerformed By: #### 49005, 12642 #### [facility] [address] [place] [address], [facility] MEXICOHemoglobin (Bld) [Mass/Vol]13.6 g/dEStlgcu59.0-15.0The [facility] HospitalComment on above:Order Comment: No: Do not add to previous drawPerformed By: #### 17947, 12390 #### [facility] [address] [facility] [place] [address], [facility] (RBC) [Entitic mass]30.0 spSazybc55.0-33.0The [facility] HospitalComment on above:Order Comment: No: Do not add to previous drawPerformed By: #### 45355, 99376 #### [facility] [address] [place] [address], [facility] MEXICOMCHC (RBC) [Mass/Vol]33.3 g/eZJzemel20.0-35.0The [facility] HospitalComment on above:Order Comment: No: Do not add to previous drawPerformed By: #### 76899, 95332 #### [facility] [address] [facility] [place] [address], [facility] SOUTHER[facility] NEW MEXICOMCV (RBC) [Entitic vol]90.1 yAOxcbeh96.0-98.0The [facility] HospitalComment on above:Order Comment: No: Do not add to previous drawPerformed By: #### 95707, 28647 #### [facility] [address] [place] [address], USANucleated RBC/100 WBC (Bld) [Ratio]0 %Normal0-0The [facility] HospitalComment on above:Order Comment: No: Do not add to previous drawPerformed By: #### 05409, 55041 #### [facility] [address] [place] [address], USAPLAT NGI432 10*3/nZFncpxh944-178Ngk [facility] HospitalComment on above:Order Comment: No: Do not add to previous draw Performed By: #### 00161, 49219 #### [facility] [address] [place] [address], USARBC (Bld) [#/Vol]4.53 10*6/uLNormal3.80-5.00The [facility] HospitalComment on above:Order Comment: No: Do not add to previous drawPerformed By: #### 23111, 74625 #### [facility] [address] [place] [address], USAWBC (Bld) [#/Vol]18.13 10*3/uLHigh4.00-10.60The [facility] HospitalComment on above:Order Comment: No: Do not add to previous drawPerformed By: #### 91235, 88119 #### [facility] [address] [place] [address], USAPOC GLUCOSE LABon 85-71-5546Yyokjzm [Mass/Vol]357 mg/dLHigh 70-100The [facility] HospitalComment on above:Performed By: #### 59060, 46111 #### [facility] [address] [place] [address], USAGlucose [Mass/Vol]272 mg/dULvbo36-991Frd [facility] HospitalComment on above:Performed By: #### 37026, 50165 #### [facility] [address] [place] [address], USAGlucose [Mass/Vol]201 mg/sGTtgx45-585Usk [facility] HospitalComment on above:Performed By: #### 12404, 61183 #### [facility] [address] [place] [address], USAGlucose [Mass/Vol]183 mg/hDVesp21-111Qbk [facility] HospitalComment on above:Performed By: #### 90389, 15452 #### [facility] [address] [place] [address], USABASIC METABOLIC PANELon 19-67-0677Ksyyhkd [Mass/Vol]8.7 mg/dLNormal8.6-10.3The [facility] HospitalComment on above:Order Comment: No: Do not add to previous drawPerformed By: #### 16025 #### [facility] [address] [place] [address], USAChloride [Moles/Vol]106 mmol/HKuygbo32-689Zjd [facility] HospitalComment on above:Order Comment: No: Do not add to previous drawPerformed By: #### 53560 #### [facility] [address] [place] [address], USACO2 [Moles/Vol]25 mmol/NPyhxij61-38Hes [facility] HospitalComment on above:Order Comment: No: Do not add to previous draw Performed By: #### 25038 #### [facility] [address] [place] [address], USACreatinine [Mass/Vol]0.62 mg/dLNormal0.60-1.20The [facility] HospitalComment on above:Order Comment: No: Do not add to previous drawPerformed By: #### 31978 #### [facility] [address] [place] [address], USAGFR/1.73 sq M predicted among blacks MDRD (S/P/Bld) [Vol rate/Area]mL/min/{1.73_m2}Normal>60The [facility] Comment on above:Order Comment: No: Do not add to previous drawPerformed By: #### 43988 #### [facility] [address] [place] [id number], USAGFR/1.73 sq M predicted among non-blacks MDRD (S/P/Bld) [Vol rate/Area]mL/min/{1.73_m2}Normal>60The [facility] Comment on above:Order Comment: No: Do not add to previous drawPerformed By: #### 88233 #### [facility] [address] [place] [address], USAGlucose [Mass/Vol]126 mg/dRMbvg23-195Fir [facility] HospitalComment on above:Order Comment: No: Do not add to previous drawPerformed By: #### 17667 #### [facility] [address] [facility] [place] [address], USAPotassium [Moles/Vol]3.7 mmol/LNormal3.5-5.1The [facility] HospitalComment on above:Order Comment: No: Do not add to previous drawPerformed By: #### 96879 #### [facility] [address] [facility] [place] [address], USASodium [Moles/Vol]137 mmol/RFqccvl688-603Fro [facility] HospitalComment on above:Order Comment: No: Do not add to previous drawPerformed By: #### 11824 #### [facility] [address] [place] [address], USAUrea nitrogen [Mass/Vol]14 mg/dLNormal7-25The [facility] HospitalComment on above:Order Comment: No: Do not add to previous drawPerformed By: #### 44277 #### [facility] [address] [facility] [place] [id number], USACBC COMPLETE BLOOD COUNTon 86-78-4490Tmnkislxevc distribution width (RBC) [Ratio]12.7 %Uxfnqx83.5-15.0The [facility] HospitalComment on above:Order Comment: No: Do not add to previous draw Performed By: #### 26109 #### [facility] [address] [place] [address], USAHematocrit (Bld) [Volume fraction]40.8 %Xjopli89.0-45.0The [facility] HospitalComment on above:Order Comment: No: Do not add to previous drawPerformed By: #### 76659 #### [facility] [address] [place] [address], USAHemoglobin (Bld) [Mass/Vol]13.3 g/uINmquqh28.0-15.0The [facility] HospitalComment on above:Order Comment: No: Do not add to previous drawPerformed By: #### 40144 #### [facility] [address] [place] [address], [facility] S[facility] MEXICOMCH (RBC) [Entitic mass]30.6 yyQpdizf26.0-33.0The [facility] HospitalComment on above:Order Comment: No: Do not add to previous drawPerformed By: #### 63079 #### [facility] [address] [place] [address], [facility] S[facility] MEXICOMCHC (RBC) [Mass/Vol]32.6 g/zBIyrrmz24.0-35.0The Pomerene HospitalComment on above:Order Comment: No: Do not add to previous drawPerformed By: #### [id number] #### [facility] [address] [place] [address], [facility] S[facility]THER[facility] NEW MEXICOMCV (RBC) [Entitic vol]93.8 jVTpvapy20.0-98.0The Pomerene HospitalComment on above:Order Comment: No: Do not add to previous drawPerformed By: #### [id number] #### [facility] [address] [place] [address], USANucleated RBC/100 WBC (Bld) [Ratio]0 %Normal0-0The Pomerene HospitalComment on above:Order Comment: No: Do not add to previous drawPerformed By: #### [id number] #### [facility] [address] [place] [address], [place]APLAT [id number] 10*3/zUOoswwh770-602Ayv Pomerene HospitalComment on above:Order Comment: No: Do not add to previous draw Performed By: #### [id number] #### [facility] [address] [place] [address], USARBC (Bld) [#/Vol]4.35 10*6/uLNormal3.80-5.00The Pome[facility] HospitalComment on above:Order Comment: No: Do not add to previous drawPerformed By: #### [id number] #### [facility] [address] [place] [address], USAWBC (Bld) [#/Vol]6.28 10*3/uLNormal4.00-10.60The Pomerene HospitalComment on above:Order Comment: No: Do not add to previous drawPerformed By: #### [id number] #### [facility] [address] [place] [address], [place]APOC GLUCOSE LABon [id number] [Mass/Vol]236 mg/dLHigh 70-100The [facility]ome[facility] HospitalComment on above:Performed By: #### [id number] #### [facility] [address] [place] [address], USAGlucose [Mass/Vol]217 mg/qVMwvm46-281Voz [facility] HospitalComment on above:Performed By: #### 43732 #### [facility] [address] [place] [address], USAGlucose [Mass/Vol]180 mg/qWDfcl01-925Npw [facility] HospitalComment on above:Performed By: #### 89494 #### [facility] [address] [place] [address], USAGlucose [Mass/Vol]110 mg/wJBpwe77-515Ckz [facility] HospitalComment on above:Performed By: #### 84407 #### [facility] [address] [address], [facility] MEXICOCBC W/DIFFon 52-25-4960FWC BASOPHILS0.0 10*3/uLNormal 0.0-0.2The [facility] HospitalComment on above:Order Comment: UnknownPerformed By: #### 17931 #### [facility] [address] [facility] [place] [address], USAABS IMM GRANS0.0 10*3/uLNormal0.0-0.2The [facility] HospitalComment on above:Order Comment: UnknownPerformed By: #### 72474 #### [facility] [address] [facility] [place] [address], [facility] MEXICOABS NEUTROPHILS3.3 10*3/uLNormal1.6-7.6The [facility] HospitalComment on above:Order Comment: UnknownPerformed By: #### 92155 #### [facility] [address] [facility] [place] [address], USABasophils/100 WBC (Bld)0.4 %Normal0.0-1.0The [facility] HospitalComment on above:Order Comment: UnknownPerformed By: #### 43801 #### [facility] [address] [facility] [place] [address], USAEosinophils (Bld) [#/Vol]0.1 10*3/uLNormal0.0-0.5The [facility] HospitalComment on above:Order Comment: Unknown Performed By: #### 06217 #### [facility] [address] [facility] [place] [address], USAEosinophils/100 WBC (Bld)2.3 %Normal0.0-6.0The [facility] HospitalComment on above:Order Comment: UnknownPerformed By: #### 44477 #### [facility] [address] [place] [address], USAErythrocyte distribution width (RBC) [Ratio]12.8 %Normal 11.5-15.0The [facility] HospitalComment on above:Order Comment: UnknownPerformed By: #### [id number] #### [facility] [address] [place] [address], USAHematocrit (Bld) [Volume fraction]38.6 %Qjhcaq43.0-45.0The [facility] HospitalComment on above:Order Comment: Unknown Performed By: #### 57479 #### [facility] [address] [place] [address], USAHemoglobin (Bld) [Mass/Vol]12.8 g/wHAnuaag39.0-15.0The [facility] HospitalComment on above:Order Comment: Unknown Performed By: #### 45917 #### [facility] [address] [place] [address], USAIMMATURE GRANS0.5 %Normal0.0-1.0The [facility] HospitalComment on above:Order Comment: UnknownPerformed By: #### 28698 #### [facility] [address] [place] [address], USALymphocytes (Bld) [#/Vol]1.6 10*3/uLNormal1.2-4.0The [facility] HospitalComment on above:Order Comment: Unknown Performed By: #### 51410 #### [facility] [address] [place] [address], USALymphocytes/100 WBC (Bld)28.1 %Eqxvxl33.0-45.0The [facility] HospitalComment on above:Order Comment: Unknown Performed By: #### 65770 #### [facility] [address] [place] [address], USAMCH (RBC) [Entitic mass]30.2 lxHontcu65.0-33.0The [facility] HospitalComment on above:Order Comment: Unknown Performed By: #### 77993 #### [facility] [address] [place] [address], [facility] S[facility] MEXICOMCHC (RBC) [Mass/Vol]33.2 g/fCSfeqgl64.0-35.0The [facility] HospitalComment on above:Order Comment: UnknownPerformed By: #### 71789 #### [facility] [address] [facility] [place] [address], [facility] SOUTHER[facility] NEW MEXICOMCV (RBC) [Entitic vol]91.0 iUXtimey49.0-98.0The [facility] HospitalComment on above:Order Comment: UnknownPerformed By: #### 24383 #### [facility] [address] [facility] [place] [address], [facility] MEXICOMonocytes (Bld) [#/Vol]0.5 10*3/uLNormal0.1-1.0The [facility] HospitalComment on above:Order Comment: Unknown Performed By: #### 61929 #### [facility] [address] [address], USAMONOS9.0 %Normal5.0-12.0The [facility] HospitalComment on above:Order Comment: UnknownPerformed By: #### 68754 #### [facility] [address] [facility] [place] [address], USANeutrophils/100 WBC (Bld)59.7 %Yxhogx37.0-72.0The [facility] HospitalComment on above:Order Comment: Unknown Performed By: #### 82085 #### [facility] [address] [facility] [place] [address], USANucleated RBC/100 WBC (Bld) [Ratio]0 %Normal0-0The P[facility] HospitalComment on above:Order Comment: Unknown Performed By: #### 56445 #### [facility] [address] [place] [address], USAPLAT BHY337 10*3/tTFnfklj163-540Msd [facility] HospitalComment on above:Order Comment: UnknownPerformed By: #### 75581 #### [facility] [address] [place] [address], USARBC (Bld) [#/Vol]4.24 10*6/uLNormal3.80-5.00The [facility] HospitalComment on above:Order Comment: UnknownPerformed By: #### 87590 #### [facility] [address] [place] [address], USAWBC (Bld) [#/Vol]5.55 10*3/uLNormal4.00-10.60The [facility] HospitalComment on above:Order Comment: UnknownPerformed By: #### 61292 #### [facility] [address] [place] [address], USACOMP METABOLIC PANELon 35-83-0143Oztkniv [Mass/Vol]3.7 g/dL Normal3.5-5.7The [facility] HospitalComment on above:Order Comment: UnknownPerformed By: #### 69694 #### [facility] [address] [place] [address], USAALKALINE NHPPZB33 IU/BKivnxz42-065Ang [facility] HospitalComment on above:Order Comment: UnknownPerformed By: #### 23076 #### [facility] [address] [place] [address], USAALT [Catalytic activity/Vol]22 U/LNormal7-52The [facility] HospitalComment on above:Order Comment: UnknownPerformed By: #### 20770 #### [facility] [address] [place] [address], USAAST [Catalytic activity/Vol]20 U/HKxbtwo54-76Est [facility] HospitalComment on above:Order Comment: UnknownPerformed By: #### 96492 #### [facility] [address] [place] [address], USABilirubin [Mass/Vol]0.3 mg/dLNormal0.3-1.0The [facility] HospitalComment on above:Order Comment: UnknownPerformed By: #### 29072 #### [facility] [address] [place] [address], USACalcium [Mass/Vol]8.3 mg/dLLow8.6-10.3The [facility] HospitalComment on above:Order Comment: UnknownPerformed By: #### 92594 #### [facility] [address] [place] [address], USAChloride [Moles/Vol]107 mmol/ETlogwr23-513Chz [facility] HospitalComment on above:Order Comment: UnknownPerformed By: #### 45734 #### [facility] [address] [place] [address], USACO2 [Moles/Vol]22 mmol/DQsgmrg30-90Jcf [facility] HospitalComment on above:Order Comment: UnknownPerformed By: #### 79421 #### [facility] [address] [place] [address], USACreatinine [Mass/Vol]0.60 mg/dLNormal0.60-1.20The [facility] HospitalComment on above:Order Comment: Unknown Performed By: #### 38160 #### [facility] [address] [place] [address], USAGFR/1.73 sq M predicted among blacks MDRD (S/P/Bld) [Vol rate/Area]mL/min/{1.73_m2}Normal>60The [facility] Comment on above:Order Comment: UnknownPerformed By: #### 75395 #### [facility] [address] [place] [address], USAGFR/1.73 sq M predicted among non-blacks MDRD (S/P/Bld) [Vol rate/Area]mL/min/{1.73_m2}Normal>60The [facility] Comment on above:Order Comment: UnknownPerformed By: #### 82270 #### [facility] [address] [place] [address], USAGlucose [Mass/Vol]126 mg/wKZjwb14-290Imn [facility] HospitalComment on above:Order Comment: UnknownPerformed By: #### 27993 #### [facility] [address] [place] [address], USAPotassium [Moles/Vol]3.7 mmol/LNormal3.5-5.1The [facility] HospitalComment on above:Order Comment: UnknownPerformed By: #### 08962 #### [facility] [address] [place] [address], USAProtein [Mass/Vol]6.6 g/dLNormal6.0-8.3The [facility] HospitalComment on above:Order Comment: UnknownPerformed By: #### 83047 #### [facility] [address] [place] [address], USASodium [Moles/Vol]135 mmol/NDge169-939Afl [facility] HospitalComment on above:Order Comment: UnknownPerformed By: #### 33307 #### [facility] [address] [place] [address], USAUrea nitrogen [Mass/Vol]10 mg/dLNormal7-25The [facility] HospitalComment on above:Order Comment: UnknownPerformed By: #### 05185 #### [facility] [address] [place] [address], USAHEMOGLOBIN A1Con 40-46-9809KlR1w (Bld) [Mass fraction]103 mg/oWNgcjam66-986Zkq [facility] HospitalComment on above:Order Comment: No: Do not add to previous drawPerformed By: #### 14428, 15390 #### [facility] [address] [facility] [address], RMTCzK2a (Bld) [Mass fraction]5.2 %Normal4.0-6.0The [facility] HospitalComment on above:Order Comment: No: Do not add to previous drawPerformed By: #### 78889, 18538 #### [facility] [address] [facility] [place] [address], USAMRI FACE ORBIT NECK W WO CONTRASTon 95-88-5342CLH FACE ORBIT NECK W WO CONTRASTUnGreene Memorial Hospital Department of Radiology [address] [place] [id number] Patient Name: EVELINE PLATT : 1980 Sex: F Age: Race: White Pt. Location: [id number] Patient Status: I Ordered Date: 11/18/2018 1:50:00 PM Completed Date: 11/18/2018 03:01 PM Requesting Provider: WILD AUSTIN Attending Provider: ED RAMIREZ Report Copy To: Signs & Symptoms: [...] of orbits with and without contrast. Approved by:Tavon Vieyra on 11/18/2018 9:33 PM EDT. I, Lisbeth Guzman, have reviewed the images and report and concur with these findings. Electronically signed by:Lisbeth Guzman. Transcribed by: [email or web address], User Resident: TAVON VIEYRA Electronically Signed by: LISBETH GUZMAN @ 11/19/2018 08:37 AM I personally read this/these film(s) with this residentMain Campus Medical CenterComment on above:Order Comment: No: Do not add to previous drawPOC GLUCOSE LABon 49-22-5418Vzbhvhp [Mass/Vol]150 mg/sLOudi84-942Iju [facility] HospitalComment on above:Performed By: #### 02251 #### [facility] [address] [place] [address], [facility] MEXICOGlucose [Mass/Vol]103 mg/hPFkpu84-709Rns [facility] HospitalComment on above:Performed By: #### 76751 #### [facility] [address] [place] [address], USABASIC METABOLIC PANELon 53-53-2043Mhzuqty [Mass/Vol]8.8 mg/dLNormal8.6-10.3The [facility] HospitalComment on above:Order Comment: No: Do not add to previous drawPerformed By: #### 61238, 59527 #### [facility] [address] [place] [address], USAChloride [Moles/Vol]105 mmol/PNljvip58-408Sgd [facility] HospitalComment on above:Order Comment: No: Do not add to previous drawPerformed By: #### 91068, 56497 #### [facility] [address] [place] [address], USACO2 [Moles/Vol]26 mmol/UMnbmrc79-42Nxu [facility] HospitalComment on above:Order Comment: No: Do not add to previous draw Performed By: #### 89122, 64648 #### [facility] [address] [place] [address], USACreatinine [Mass/Vol]0.71 mg/dLNormal0.60-1.20The [facility] HospitalComment on above:Order Comment: No: Do not add to previous drawPerformed By: #### 16200, 85094 #### [facility] [address] [place] [address], USAGFR/1.73 sq M predicted among blacks MDRD (S/P/Bld) [Vol rate/Area]mL/min/{1.73_m2}Normal>60The [facility] Comment on above:Order Comment: No: Do not add to previous drawPerformed By: #### 13252, 89894 #### [facility] [address] [place] [address], USAGFR/1.73 sq M predicted among non-blacks MDRD (S/P/Bld) [Vol rate/Area]mL/min/{1.73_m2}Normal>60The [facility] Comment on above:Order Comment: No: Do not add to previous drawPerformed By: #### 30839, 95199 #### [facility] [address] [place] [address], USAGlucose [Mass/Vol]90 mg/pAZaaasu39-760Xlu [facility] HospitalComment on above:Order Comment: No: Do not add to previous drawPerformed By: #### 85167, 69784 #### [facility] [address] [place] [address], USAPotassium [Moles/Vol]3.6 mmol/LNormal3.5-5.1The [facility] HospitalComment on above:Order Comment: No: Do not add to previous drawPerformed By: #### 73727, 48749 #### [facility] [address] [place] [address], USASodium [Moles/Vol]138 mmol/TTisswp765-346Fcy [facility] HospitalComment on above:Order Comment: No: Do not add to previous drawPerformed By: #### 14389, 42748 #### [facility] [address] [place] [address], USAUrea nitrogen [Mass/Vol]10 mg/dLNormal7-25The [facility] HospitalComment on above:Order Comment: No: Do not add to previous drawPerformed By: #### 39789, 48073 #### [facility] [address] [place] [address], USACBC COMPLETE BLOOD COUNTon 25-19-9283Sgocvldxejp distribution width (RBC) [Ratio]12.8 %Ifhhvs63.5-15.0The [facility] HospitalComment on above:Order Comment: No: Do not add to previous draw Performed By: #### 71120 #### [facility] [address] [place] [address], USAHematocrit (Bld) [Volume fraction]40.1 %Roveei55.0-45.0The [facility] HospitalComment on above:Order Comment: No: Do not add to previous drawPerformed By: #### 97765 #### [facility] [address] [place] [address], USAHemoglobin (Bld) [Mass/Vol]13.1 g/yBZyfwws05.0-15.0The [facility] HospitalComment on above:Order Comment: No: Do not add to previous drawPerformed By: #### 10371 #### [facility] [address] [place] [address], [facility] SOU[facility] NEW MEXICOMCH (RBC) [Entitic mass]30.5 xhQedgsq38.0-33.0The [facility] HospitalComment on above:Order Comment: No: Do not add to previous drawPerformed By: #### 30353 #### [facility] [address] [place] [address], [facility] SOUTHER[facility] MEXICOMCHC (RBC) [Mass/Vol]32.7 g/xENbubso51.0-35.0The [facility] HospitalComment on above:Order Comment: No: Do not add to previous drawPerformed By: #### 66129 #### [facility] [address] [place] [address], [facility] OF SOUTHERN NEW MEXICOMCV (RBC) [Entitic vol]93.3 cBPejagt93.0-98.0The [facility] HospitalComment on above:Order Comment: No: Do not add to previous drawPerformed By: #### 68732 #### [facility] [address] [place] [address], USANucleated RBC/100 WBC (Bld) [Ratio]0 %Normal0-0The [facility] HospitalComment on above:Order Comment: No: Do not add to previous drawPerformed By: #### 58670 #### [facility] [address] [place] [address], USAPLAT XQC876 10*3/pJNzxpxt455-919Obj [facility] HospitalComment on above:Order Comment: No: Do not add to previous draw Performed By: #### 48769 #### [facility] [address] [facility] [place] [address], USARBC (Bld) [#/Vol]4.30 10*6/uLNormal3.80-5.00The [facility] HospitalComment on above:Order Comment: No: Do not add to previous drawPerformed By: #### 43218 #### [facility] [address] [facility] [address], USAWBC (Bld) [#/Vol]5.88 10*3/uLNormal4.00-10.60The [facility] HospitalComment on above:Order Comment: No: Do not add to previous drawPerformed By: #### 37514 #### [address] [place] [address], USACTA HEADon 73-39-1374MLR HEADUnGreene Memorial Hospital Department of Radiology [address] [place] [id number] Patient Name: EVELINE PLATT : 1980 Sex: F Age: Race: White Pt. Location: [id number] Patient Status: I Ordered Date: 11/17/2018 11:30:00 AM Completed Date: 11/17/2018 02:18 PM Requesting Provider: ED RAMIREZ Attending Provider: ED RAMIREZ Report Copy To: Signs & Symptoms: [...] Fonseca on 11/17/2018 4:27 PM EDT. I, Preston Macho, have reviewed the images and report and concur with these findings. Electronically signed by:Kary Mario. Transcribed by: [email or web address], User Resident: WHITNEY GLEASON Electronically Signed by: KARY MARIO @ 11/18/2018 07:23 PM I personally read this/these film(s) with this residentMain Campus Medical CenterComment on above:Order Comment: No: Do not add to previous drawCTA NECKon 30-61-4449ZAM NECKUnGreene Memorial Hospital Department of Radiology [address] [place] [id number] Patient Name: EVELINE PLATT : 1980 Sex: F Age: Race: White Pt. Location: [id number] Patient Status: I Ordered Date: 11/17/2018 11:30:00 AM Completed Date: 11/17/2018 02:18 PM Requesting Provider: ED RAMIREZ Attending Provider: ED RAMIREZ Report Copy To: Signs & Symptoms: [...] Fonseca on 11/17/2018 4:27 PM EDT. I, Kary Mario, have reviewed the images and report and concur with these findings. Electronically signed by:Kary Mario. Transcribed by: [email or web address], User Resident: WHITNEY GLEASON Electronically Signed by: KARY MARIO @ 11/18/2018 07:23 PM I personally read this/these film(s) with this [facility] CampusHistory and Physicalon 63-03-8657Ekxcler and PhysicalMR#: [id number] [facility] Pt. Name: Eveline Platt Admitted: 11/17/2018 Date of : 1980 Attending Physician: Jennifer Kincaid MD Room #: [id number] Discharge Date: HISTORY AND PHYSICAL CHIEF COMPLAINT: [...] A/Jennifer Kincaid MD Date Trans: 11/17/2018 05:13 A/mmo DN_JN:[id number] Hospital LimaLIPID PROFILEon 50-80-9827Phrpgrobqkj [Mass/Vol]133 mg/wGRtcetw838-629Vjh [facility] HospitalComment on above:Order Comment: No: Do not add to previous draw Result Comment: CHOLESTEROL REFERENCE RANGE: 20 YEARS AND OLDER CARDIOVASCULAR RISK Less than 200 mg/dl Low Risk 200 to 239 mg/dl Borderline Risk 240 mg/dl and greater High RiskPerformed By: #### 74577, 72570 #### [facility] [address] [place] [address], USACholesterol in HDL [Mass/Vol]39 mg/gBJzbfdj98-73Fbd [facility] HospitalComment on above:Order Comment: No: Do not add to previous drawResult Comment: Slight variation in normal range could be due to gender and/or age. HDL CHOLESTEROL REFERENCE RANGE: 20 years and older Cardiovascular Risk > or =60 mg/dL Desirable 40 TO 59 mg/dL Low Risk <40 mg/dL High RiskPerformed By: #### 25940, 01521 #### [facility] [address] [place] [address], USACholesterol in LDL [Mass/Vol]52 mg/dLNormal0-130The [facility] HospitalComment on above:Order Comment: No: Do not add to previous drawResult Comment: LDL IS A CALCULATION LDL IS ONLY VALID IF THE TRIG IS LESS THAN 400.Performed By: #### 52247, 65466 #### [facility] [address] [place] [address], USACholesterol.total/Cholesterol in HDL [Mass ratio]3.4 {ratio}Normal0.0-4.5The [facility] HospitalComment on above: Order Comment: No: Do not add to previous drawPerformed By: #### 42631, 33842 #### [facility] [address] [place] [address], USANON-HDL CMBUBRHZXWW66 mg/dLNormalThe [facility] HospitalComment on above:Order Comment: No: Do not add to previous draw Performed By: #### 48557, 97206 #### [facility] [address] [place] [address], USATriglyceride [Mass/Vol]208 mg/zXJews19-655Vap [facility] HospitalComment on above:Order Comment: No: Do not add to previous drawResult Comment: TRIGLYCERIDE REFERENCE RANGE: 20 YEARS AND OLDER CARDIOVASCULAR RISK LESS THAN 150 mg/dl LOW RISK 150 TO 199 mg/dl BORDERLINE RISK 200 mg/dl AND GREATER HIGH RISKPerformed By: #### 89365, 51260 #### [facility] [address] [place] [address], USAVLDL CHOL42 mg/dLHigh0-40The [facility] HospitalComment on above:Order Comment: No: Do not add to previous drawPerformed By: #### 91553, 27883 #### [facility] [address] [place] [address], USAMRI BRAIN W WO CONTRASTon 37-92-9113BOY BRAIN W WO CONTRAST [facility] Department of Radiology [address] [place] [phone] Patient Name: EVELINE PLATT : 1980 Sex: F Age: Race: White Pt. Location: [id number] Patient Status: I Ordered Date: 11/17/2018 2:50:00 AM Completed Date: 11/17/2018 02:16 PM Requesting Provider: JENNIFER OLIVIER Attending Provider: ED RAMIREZ Report Copy To: Signs & Symptoms: [...] Fonseca on 11/17/2018 6:08 PM EDT. I, Kary Mario, have reviewed the images and report and concur with these findings. Electronically signed by:Kary Mario. Transcribed by: [email or web address], User Resident: WHITNEY GLEASON Electronically Signed by: KARY MARIO @ 11/18/2018 07:22 PM I personally read this/these film(s) with this [facility] CampusComment on above:Order Comment: R/O CVASEDIMENTATION RATEon 69-63-2764XQE RATE13 mm/hrNormal0-20The [facility] Comment on above:Order Comment: No: Do not add to previous drawPerformed By: #### 71063 #### [facility] [address] [place] [address], USATOX PANEL URINEon 58-96-560868 THCNegativeNormalNEGATIVEThe [facility] HospitalComment on above:Order Comment: No: Do not add to previous drawPerformed By: #### 32465 #### [facility] [address] [place] [address], USABARBITURATESNegativeNormalNEGATIVEThe [facility] HospitalComment on above:Order Comment: No: Do not add to previous draw Performed By: #### 76183 #### [facility] [address] [place] [address], USABenzodiazepines Ql (U)NegativeNormalNEGATIVEThe [facility] HospitalComment on above:Order Comment: No: Do not add to previous drawPerformed By: #### 87321 #### [facility] [address] [place] [address], USACocaine Ql (U)NegativeNormalNEGATIVEThe [facility] HospitalComment on above:Order Comment: No: Do not add to previous drawPerformed By: #### 19269 #### [facility] [address] [place] [address], USAMethadone Ql (U)NegativeNormalNEGATIVEThe [facility] HospitalComment on above:Order Comment: No: Do not add to previous drawPerformed By: #### 10514 #### [facility] [address] [place] [address], USAMONO AMPHETNegativeNormalNEGATIVEThe [facility] HospitalComment on above:Order Comment: No: Do not add to previous draw Performed By: #### 22396 #### [facility] [address] [place] [address], USAOpiates Ql (U)NegativeNormalNEGATIVEThe [facility] HospitalComment on above:Order Comment: No: Do not add to previous drawPerformed By: #### 70917 #### [facility] [address] [place] [address], USAPhencyclidine Ql (U)NegativeNormalNEGATIVEThe [facility] HospitalComment on above:Order Comment: No: Do not add to previous drawPerformed By: #### 29400 #### [facility] [address] [place] [address], USAPROPOXYPHENENegativeNormalNEGATIVEThe [facility] HospitalComment on above:Order Comment: No: Do not add to previous draw Performed By: #### 44073 #### [facility] [address] [facility] [place] [address], USATRICYCLICSNegativeNormalNEGATIVEThe [facility] HospitalComment on above:Order Comment: No: Do not add to previous draw Performed By: #### [id number] #### [facility] [address] [facility] [place] [address], [facility] Vital Signs Date TimeVital SignValuePerforming [id number] 15:05-0500Body efsehz464.94 cmMiranda Botello MD Work Phone: [phone]11-04-2025 15:05-0500 Body mass index (BMI) [Ratio]40.6 kg/m8ManmloMiranda Botello MD Work Phone: [phone]11-04-2025 15:05-0500 Body ofuqlz46.52 kgMiranda Botello MD Work Phone: [phone]11-04-2025 15:05-0500 Diastolic blood pozuajfl81 mm[Hg]Miranda Botello MD Work Phone: [phone]11-04-2025 15:05-0500 Heart rate75 /minMiranda Botello MD Work Phone: [phone]11-04-2025 15:05-0500 Systolic blood edblnebv504 mm[Hg]Miranda Botello MD Work Phone: [phone]80[facility]10-20-2025 10:00-0400 Body .94 cmMiranda Botello MD Work Phone: [phone]10-20-2025 10:00-0400 Body mass index (BMI) [Ratio]40.6 kg/d9YdbiiaMiranda Botello MD Work Phone: [phone]10-20-2025 10:00-0400 Body yfpussehgkl02 [degF]Miranda Botello MD Work Phone: [phone] [place], [place] [address]1010-20-2025 10:00-0400 Body jenyip77.52 kgMiranda Botello MD Work Phone: [phone] [place], [place] [address]1010-20-2025 10:00-0400 Diastolic blood ikjpcbca42 mm[Hg]Miranda Botello MD Work Phone: [phone] [place], [place] [address]0-20-2025 10:00-0400 Heart rate76 /minMiranda Botello MD Work Phone: [phone]10-20-2025 10:00-0400 Systolic blood qyickgva424 mm[Hg]Miranda Botello MD Work Phone: [phone]09-18-2025 09:48-0400 Body orhubr686.5 cmLisa Krotzer DICTAPHONE OPERATOR-HISTORICAL ARCHEOLOGIST Work Phone: [facility]09-18-2025 09:48-0400Body mass index (BMI) [Ratio]39.4 kg/m2Lisa Krotzer DICTAPHONE OPERATOR-HISTORICAL ARCHEOLOGIST Work Phone: [facility]09-18-2025 09:48-0400Body vsqlyb50.7 kgLisa Krotzer DICTAPHONE OPERATOR-HISTORICAL ARCHEOLOGIST Work Phone: [facility]09-18-2025 09:48-0400Diastolic blood sswyoeyb731 mm[Hg]Shannan Krotzer DICTAPHONE OPERATOR-HISTORICAL ARCHEOLOGIST Work Phone: [facility]09-18-2025 09:48-0400Systolic blood ewqrcifa974 mm[Hg]Shannan Méndez DICTAPHONE OPERATOR-HISTORICAL ARCHEOLOGIST Work Phone: [facility]03-11-2025 11:50-0400Body lphhaq029.94 cmMiranda Botello MD Work Phone: [facility]03-11-2025 11:50-0400 Body jphelr53.61 kgMiranda Botello MD Work Phone: [facility]02-10-2025 15:27-0500 Body xljulo953.94 cmTri[facility]02-10-2025 15:27-0500Body mass index (BMI) [Ratio]40.4 kg/o3AiotxfndnTrihealth Good Samaritan Hospital02-10-2025 15:27-0500Body orgper64.06 kgTrihealth [facility]02-10-2025 15:27-0500Diastolic blood deevhmbu89 mm[Hg][facility] 04-29-2024 15:27-0500Heart rate72 /[facility] 04-29-2024 15:27-0500Systolic blood rrewxoqa035 mm[Hg][facility]09-23-2024 15:49-0400Body yyogzh022.94 cmTri[facility]09-23-2024 15:49-0400Body mass index (BMI) [Ratio]39.1 kg/s4MmciimunmTrihealth Good Samaritan Hospital09-23-2024 15:49-0400Body .89 [facility]09-23-2024 15:49-0400Diastolic blood tkyejjbk30 mm[Hg] [facility]09-23-2024 15:49-0400Heart rate67 /[facility]09-23-2024 15:49-0400Systolic blood jsyyycka816 mm[Hg] [facility] Encounters Encounter DateEncounter TypeCare ProviderFacilityStart: 01-21-2025 End: 87-75-1003esecpqtsorSjmqsl E Braun MD [facility] Phone: [facility]2025 End: 30-77-7471Thxuuqd encounter procedureMiranda Botello MD-[facility] Work Phone: Start: 01-20-2025 End: 08-75-6158rrnywuwnmwQUANRegency Hospital Toledotart: 01-06-2025 End: 85-23-7394tkqyyheiprPrxuqs E Braun MD Work Phone: [facility] 01-06-2025 End: 57-66-8690Eeukxxx encounter procedureMiranda Botello MD-[facility] Work Phone: Start: 12-25-2024 End: 34-38-8497ufomhwzckbAKQSBridgeWay Hospital HospitalStart: 61-34-4975Pvt-patient / Non-visitUma Cueto PA-C-[facility] Work Phone: Start: 12-05-2024 End: 66-46-5547yewaehvmapRLMKCumberland Medical Center Ambulatory PPGStart: 12-05-2024 End: 26-58-3877Qcynxd outpatient new 30 minutesLisa [facility] DICTAPHONE OPERATOR-HISTORICAL ARCHEOLOGIST Work Phone: [facility] Physicians Obstetrics/GynecologyComment on above:Abnormal uterine bleeding (AUB) (Primary Dx); Menorrhagia with irregular cycleStart: 13-14-6154Wnz-patient / Non-visit Carrie Schwartz CMA-[facility] Work Phone: Start: 00-58-5542Nvh-patient / Non-visitJad Perez PA-C-[facility] Work Phone: Start: 98-86-0489Vqx-patient / Non-visitMiranda Botello MD Work Phone: [facility] Work Phone: Start: 14-26-6649Bcj-patient / Non-visitMiranda Botello MD Work Phone: [facility] Work Phone: Start: 89-44-2134Iuo-patient / Non-visitMiranda Botello MD Work Phone: [facility] Work Phone: Start: 06-65-7669Ftg-patient / Non-visitMiranda Botello MD Work Phone: [facility] Work Phone: Start: 05-28-2024 End: 48-28-8301tikvnmivncAaopppqia L LyFacility:[facility]: 05-28-2024 End: 75-10-7686Oekpwkrk ReferredMiranda Botello MD Work Phone: [facility] Work Phone: Start: 04-29-2024 End: 94-98-3864oberfdckocFjlraxyodSelect [facility] Work Phone: Start: 04-29-2024 End: 41-53-2554Hdjygbs encounter procedureSelect [facility] Work Phone: Start: 01-50-8844Agw-patient / Non-visitSelect [facility] Work Phone: Start: 14-14-5571Hgguxks encounter statusMorrow County Hospitaltart: 12-11-2023 End: 33-87-2886evclrzowlfDmuocldebSelect [facility] Work Phone: Start: 12-11-2023 End: 89-21-0289Ovsbbqmlj for general adult medical examination without abnormal findingsMorrow County Hospitaltart: 12-11-2023 End: 84-51-8346Oaydkro encounter procedureSelect [facility] Work Phone: Start: 02-07-2023 End: 46-25-5494pajkqpbifsKuhnrv Braun Other [facility] Other Start: 59-70-9837Tolodmxlx encounterMiranda [facility] ClinicStart: 01-23-2023(Televisit) TelevisitMiranda [facility] ClinicStart: 01-23-2023 End: 52-17-4917utyhhsdkmtLpsopt Braun Other [facility] Other Start: 05-10-2022 End: 37-95-7437xsqjrqlbraYL MELLISSA BAILEY .Facility:J9Juwqn: 05-21-2021 End: 97-91-2626uxcrnpmjsqZO MIRANDA BOTELLOFacility:C9Wooaa: 51-18-0394Jfuxq health examinationMiranda Botello Other [facility] Other Start: 77-51-0279Spiphxk, abnormal examinationMiranda Botello Other [facility] Other Start: 05-07-2020 End: 42-26-1021Rrvkexi encounter procedureExternal ProviderCity Hospital Start: 71-68-0791Zsdssnw OnlyExternal ProviderExternal-NonCCFStart: 11-17-2018 End: 07-39-3902Jbhrhrcadu and management of inpatientASIF MAHMOODFacility:[facility] Procedures DateProcedureProcedure DetailPerforming ClinicianStart: 57-51-8043Gkxhpratzdh observation [Identifier] in Cervix by Sharda MANCILLA Work Phone: Start: 05-07-2020 End: 29-97-4431MKEZJEKR LABExternal ProviderScreening for malignant neoplasm of breastMiranda Botello Other Plan of Treatment DateCare ActivityDetailAuthorStart: 67-78-0459Rqjft BMI ScreeningAdult BMI ScreeningProMercy Health Tiffin Hospitalca Health SystemStart: 79-78-6735Tjmqrdb ScreeningTobacco ScreeningProMercy Health Tiffin Hospitalca [facility] SystemStart: 01-09-2025 End: 16-38-6872Gxwvsnp encounter tzjhmotad18/23/2025 3:45 PM EDT Office Visit [facility] [address] [place] [address] Shannan Méndez, DICTAPHONE OPERATOR-HISTORICAL ARCHEOLOGIST [address] [place] [address] [facility] Obstetrics/GynecologyStart: 12-05-2024 End: 26-38-6336KD Pelvis transabdominal and transvaginalUltrasound pelvic with transvaginal Imaging Routine Abnormal uterine bleeding (AUB) Menorrhagia with irregular cycle Expected: 12/05/2024, Expires: 12/05/2025[facility] Work Phone: Comment on above:Expected: 12/05/2024, Expires: 12/05/2025Start: 77-62-6182Unveglrmc vaccinationInfluenza VaccineSt. Mary's Medical Center SystemStart: 65-29-6019Oxypzzmdp for malignant neoplasm of cervixPap SmearSt. Mary's Medical Center SystemStart: 77-27-4211Hbmnuvm referralPremier Health [facility] Work Phone: Start: 31-32-5837BEiW,Tdap and Td Vaccines (2 - Td or Tdap)DTaP,Tdap and Td Vaccines (2 - Td or Tdap)[facility]art: 89-56-4347Ciswe BMI Follow Up PlanAdult BMI Follow Up PlanSt. Mary's Medical Center SystemStart: 87-25-6971Irzbbmulaw ScreeningDepression ScreeningSt. Mary's Medical Center System End: 91-56-9176NQJ panel - Blood by Automated countCBC without diff Lab Routine Abnormal uterine bleeding (AUB) Menorrhagia with irregular cycle 1 Occurrences starting 12/05/2024 until 12/06/2025ProMount St. Mary Hospital SystemComment on above:1 Occurrences starting 12/05/2024 until 12/06/2025Patient EducationBack Flexion Strengthening ExercisesPremier Health Upper Valley Medical Center Work Phone: Patient referralPremier Health Upper Valley [facility] Center Work Phone: End: 74-62-4338Nceaoiu profile includes TSH OI2Qxbyahs profile includes TSH FT4 Lab Routine Abnormal uterine bleeding (AUB) Menorrhagia with irregular cycle 1 Occurrences starting 12/05/2024 until 12/05/2025ProMount St. Mary Hospital SystemComment on above:1 Occurrences starting 12/05/2024 until 12/05/2025XR Lumbar spine 2 or 3 [facility] Immunizations Immunization DateImmunizationNotesCare EjgmydizJtwashrg53-32-9684wemdktntl virus vaccine, split virus (incl. purified surface antigen)Miranda Botello Other [facility] [employer] Other 10100915-25-1610zfgyaxpzu virus vaccine, unspecified formulationTrihealth Good Samaritan Hospital Payers DatePayer CategoryPayerPolicy [id number]-stm [id number] Managed Care - PPO [employer] Member Subscriber Plan / Payer (Effective 2024-Present) Name: Evelnie Platt MMember ID: [id number] Relation to Subscriber: Spouse Name: David Platt Date of : 1981 (Home) Address: [address] [place] [address] Payer ID: Not on file Type: Not on file Address: [address] [id number] 07-72-2477GbmpvcgEIG MMO SUPERMED PLUS [id number] 2020-Present PPO [id number] 2.0.1.594596.3.57[id number] 2.840.1.793649.3.57[id number] 2.0.1.745888.3.57[id number] 2.0.1.883425.3.57[id number] 2.0.1.146536.3.57[id number] 2.0.1.279308.3.57[id number] Health [id number] Health [id number] 2..1.945565.3.579.2.531 Social History DateTypeDetailFacilityTobacco smoking status NHISUnknown if ever smokedMercy Health Allen Hospitaltart: 97-65-0125Urm Assigned At BirthNot on [facility]art: 04-30-2020 End: 19-81-9416Rsj Assigned At [facility] [employer] Other Start: 05-30-2023 End: 36-87-7255Ijizeqs smoking status NHISNever smoked tobacco (finding) [facility]: 12-14-0091Vau Assigned At BirthFeSelect Medical Specialty Hospital - Southeast Ohiotart: 10-23-2014 End: 18-62-9213EcjVmrzir (finding)[facility]tart: 49-35-5596Mjvlmym use and exposureSmokeless tobacco non-userSt. Mary's Medical Center SystemStart: 04-62-9478Gcekajams beverage intakeEx-drinker (finding)[facility] Hospitaltart: 04-30-2020 End: 14-72-2088Qdtnthd of Social functionKettering Health Main CampusChildcareUnknown [facility] CampusNEGATED: Highlighted [facility] Clinical Notes 05-13-2020 to 01-06-2025 Note Date & NvppXfasTiybaarb72-40-3133 Evaluation note* Diagnosis Onset Date Resolution Status Admit Date Bronchitis acuteOctober 2024 9:52am [facility] Work Phone: [phone]) 298-746909-18-2025 History of Present illness Narrative* Shannan Méndez, DICTAPHONE OPERATOR-HISTORICAL ARCHEOLOGIST - 12/05/2024 9:30 AM EDT Eveline Platt is a 44 y.o.female. Patient's last menstrual period was 12/05/2021 (approximate).. She presents for menorrhagia. Patient has not had a period in 3 years, then started having vaginal bleeding on 11/25/24. She was going through a maxi pad an hour and had golfball size blood clots. Current contraception: coitus interruptus OB History 4 Para 3 Term 3 AB Living SAB IAB Ectopic Multiple Live Births MEDICAL HX Past Medical History: Diagnosis Date Acid reflux History of low potassium Hypertension SURGICAL HX Past Surgical History: Procedure Laterality Date KNEE ARTHROSCOPY Left 1993 OOPHORECTOMY Right 2019 POLYPECTOMY uterine FAMILY HX Family History Problem Relation Age of Onset Stomach cancer Paternal Grandfather Diabetes Paternal Grandmother Hypertension Maternal Grandmother Diabetes Maternal Grandmother Uterine cancer Maternal Grandmother 60 Bone cancer Maternal Grandfather Hypertension Father Diabetes Father Glaucoma Father Cataracts Mother Brain Tumor Mother Breast cancer Maternal Aunt 48 Breast cancer Maternal Aunt 48 Macular degeneration Neg Hx MEDS Current Outpatient Medications Medication Sig Dispense Refill dexlansoprazole (DEXILANT) 60 mg capsule Take by mouth. IRON, FERROUS SULFATE, ORAL Take by mouth. metoprolol succinate XL (TOPROL XL) 50 mg 24 hr tablet Take 1 tablet (50 mg total) by mouth. No current facility-administered medications for this visit. ALLERGIES No Known Allergies Review of Systems Review of Systems Constitutional: Negative. Respiratory: Negative. Negative for chest tightness and shortness of breath. Cardiovascular: Negative. Negative for chest pain and palpitations. Gastrointestinal: Negative. Genitourinary: Positive for menstrual problem. Negative for pelvic pain. Neurological: Negative. Psychiatric/Behavioral: Negative. Objective BP (!) 150/110 Ht 157.5 cm (5' 2 ) Wt 97.7 kg (215 lb 6.4 oz) LMP 12/05/2021 (Approximate) BMI 39.40 kg/m Physical Exam Vitals and nursing note reviewed. Constitutional: Appearance: Normal appearance. Cardiovascular: Rate and Rhythm: Normal rate and regular rhythm. Pulses: Normal pulses. Heart sounds: Normal heart sounds. Pulmonary: Effort: Pulmonary effort is normal. Breath sounds: Normal breath sounds. Musculoskeletal: General: Normal range of motion. Skin: General: Skin is warm and dry. Neurological: Mental Status: She is alert and oriented to person, place, and time. Psychiatric: Mood and Affect: Mood normal. Behavior: Behavior normal. Thought Content: Thought content normal. Judgment: Judgment normal. Assessment/Plan: Eveline was seen today for menorrhagia. Diagnoses and all orders for this visit: Abnormal uterine bleeding (AUB) - Ultrasound pelvic with transvaginal; Future - Thyroid profile includes TSH FT4; Future - CBC without diff; Future Menorrhagia with irregular cycle - Ultrasound pelvic with transvaginal; Future - Thyroid profile includes TSH FT4; Future - CBC without diff; Future Await u/s and labs. Follow up / treat as indicated. Discussed possibility of EMB and procedure explained. All questions answered. Educational material provided through [employer]. RTO for annual (due now) or sooner as needed. LOR Layne APRN-CNP Lisa M Krotzer, APRN-CNP 12/05/24 1014 documented in this encounterPorter Medical CenterFlynn11-06-2023 Evaluation note* Encounter Date Diagnosis Assessment Notes Treatment Notes Treatment Clinical Notes Jan, Chronic sinusitis, unspecified (ICD-10 - J32.9) >15 min spent in discussion/decision making. Sinus infections can be triggered by [...] verbalized understanding and agreement with treatment plan. Jan,Other specified bacterial agents as the cause of diseases classified elsewhere (ICD-10 - B96.89) [facility] Other 05-03-2021 NoteHNO ID: [id number] Author: Cat Wilson RD Service: ? Author Type: Registered Dietitian Type: Progress Notes Filed: 07/20/2020 12:50 PM Note Text: 12:01- Called pt at this time for scheduled phone appointment. No answer, left message for patient with provider contact information. Cat Wilson RDN, GHADAShel[facility]05-03-2021 NoteEducation (NUTRSA) EVELINE PLATT ([id number]) 1980 F Date Time Provider Department 07/20/20 12:00 PM CAT WILSON Reason for Visit: Nutrition Telephone [2013] Progress Notes: Cat Wilson RD 07/20/2020 12:50 PM Signed 12:01- Called pt at this time for scheduled phone appointment. No answer, left message for patient with provider contact information. Cat Wilson RDN, GHADA During your visit today, we recorded the following information about you: Allergies As of Date: 07/20/2020 (No Known Allergies) Date Reviewed: 06/29/2020 Reviewed by: Cat Wilson - Fully Assessed Prescriptions as of 07/20/2020 [...] mouth twice * Encounter Status:Closed by CAT WILSON on 07/20/20[facility]04-12-2021 NoteEducation (NUTRSA) EVELINE PLATT ([id number]) 1980 F Date Time Provider Department 06/29/20 12:00 PM CAT WILSON (ASIF) NUTR Reason for Visit: Nutrition Telephone [2013] Progress Notes: Cat Wilson RD 06/30/2020 9:24 AM Signed Nutrition Therapy [...] 4 course- meat/pot/corn/non-starchy vegetable Snack(s): evening snacker- 9-570p something sweet Fluids: 3-24 oz water during [...] reading -ok to use gama such as [employer] or [employer] to take caloric intake if desired -call [...] Estimated kilocalorie needs: 1854 kilocalories determined by [place] x 1.2 Estimated protein needs: 75-94 [...] nutrition counseling for obesity. 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 Author Type: Registered Dietitian Type: [...] 4 course- meat/pot/corn/non-starchy vegetable Snack(s): evening snacker- 3-430p something sweet Fluids: 3-24 oz water during the day. At home 48oz water. Nutrition Diagnosis: Problem, Etiology and Signs/Symptoms: Overweight/Obesity related to excessive energy intake as evidenced by BMI 39.2. Nutrition Intervention: -aim for 3 meals + snack if needed -use [employer] plate for dinner -ok to use meal replacement for lunch -ok to have snack of 1 CHO + Pro for breakfast -continue drinking at least 64 oz non-caffeine containing beverages -begin label reading -ok to use gama such as [employer] or [employer] to take caloric intake if desired -call [...] Estimated kilocalorie needs: 1854 kilocalories determined by [place] x 1.2 Estimated protein needs: 75-94 [...] nutrition counseling for obesity. 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 [facility]04-07-2021 NoteHNO ID: [id number] Author: Blake Patel Service: ? Author Type: Physician Type: Progress Notes Filed: 06/25/2020 6:20 AM Note Text: NAME: Eveline Platt CLINIC NO.: [id number] DATE OF SERVICE: June 24, 2020 Some elements in this clinic note that are critical to medical decision making have been carefully reviewed and included from a prior clinic note dated: May 13, 2020 Referring Provider: Miranda Botello Additional Clinicians involved in Eveline Platt's [...] also endorses heavy menses. 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 Per HPI and [...] 25 Protein, Total (g/ (more content not included)...[facility] 05-13-2020 NoteHNO ID: [id number] Author: Blake Patel Service: ? Author Type: Physician Type: Progress Notes Filed: 05/13/2020 12:21 PM Note Text: NAME: Eveline Platt [facility] NO.: [id number] DATE OF SERVICE: May 13, 2020 Referring Provider: Miranda Botello Consultation requested by Dr. Botello for [...] also endorses heavy menses. 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 Per HPI and [...] Patel MD, CPE [facility] [place], [place] CC: Miranda Botello MD ([facility]) [address] [facility] [address]TtakfinpiMiddletown Hospitalaluation noteNo Information [facility] [employer] Other Evaluation note* Diagnosis Onset Date Resolution Status DDD (degenerative disc disease), lumbar acuteSI joint arthritisacuteWellness examinationacute [facility] Work Phone: Evaluation note* Diagnosis Onset Date Resolution Status Admit Date Colon cancer screening acuteFebruary 2024 3:26pmGastro-esophageal reflux disease without esophagitisacuteFebruary 2024 3:26pm [facility] Work Phone: Evaluation noteNo assessment information available [facility] Work Phone: Evaluation note* Diagnosis Abnormal uterine bleeding (AUB)- Primary Menorrhagia with irregular cycle documented in this encounter [facility] SystemHistory general Narrative - Reported* Type Description Date Medical History DDD LUMBAR ARTHRITIS Medical HistoryGERDMedical HistoryBOWEL ADHESIONSMedical HistoryUTERINE AND VAGINAL POLYPSMedical HistoryhypertensionSurgical HistoryD&CSurgical History CERVICAL AND UTERINE POLYPSSurgical HistoryOVARIAN CYST/BOWELS RELEASED FOR UTERUSSurgical HistoryoophorectomySurgical Historyknee surgeryHospitalization Historysee above [facility] Other Hospital Discharge instructionsAmbulatory Orders* Referral to Gastroenterology Location: None Selected [facility] Work Phone: Instructions* Attachments The following attachments cannot be sent through Care Everywhere. * Heavy periods (Russian) * Bleeding After Menopause (Russian) documented in this encounterProMount St. Mary Hospital SystemReason for referral (narrative)No reason for referral information availablePremier Health Upper [facility] Center Work Phone: Summary Purpose Family History No Family History Records Found Relationship Condition Age at Onset Recorded Date/T laurita father Hypertension Unknown Diabetes mellitusUnknown Advance Directives No Advanced Directives Records Found Advance Directive Response Recorded Date/ Time Advance Directives No August 25 0 9:06am Advance Directive Response Recorded Date/ Time Advance Directives No August 25 0 8:06am Hospital Course Note MR#: [id number] [facility] Pt. Name: Eveline Platt Admitted: 11/17/2018 Discharged: 11/21/2018 Date of : 1980 Physician: Ed Ramirez MD DISCHARGE SUMMARY date of discharge, [...] a pleasant 38-year-old female, who presented to [facility] on account of left acute visual loss and the patient was brought to the [facility] for further evaluation and management. Has had an extensive evaluation done including ESR, which is normal along (more content not included)... Note [facility] SURGERY Clinical Discharge Summary PERSON INFORMATION Name EVELINE PLATT Age 38 Years 1980 Sex FEMALE Language Russian PCP Rosmery ALVA, Miranda Peñaloza Marital Status Med Service Ambulatory Surgery Acct# Arrival 01/15/2019 08:48:00 Visit Reason SURGERY-RIGHT SALPINGO-OOPHORECTOMY AND DIAGNOSTIC LAPAROSCOPY Acuity LOS 043 00:30 Address: [address] [place] [address] Comment: PROVIDER INFORMATION VITALS INFORMATION Vital Sign Triage Latest Temp Oral Temp Temporal Temp Intravascular Temp Axillary Temp Rectal 02 Sat 100 % 100 % Respiratory Rate Peripheral Pulse Rate Apical Heart Rate Blood Pressure / 93 mmHg / 81 mmHg Comment: MEDICAL INFORMATION Allergy Info: No known allergies Prescriptions Given: acetaminophen-hydrocodone (Skandia 5 mg-325 mg oral tablet) 1 tab(s) [...] Amb Documentation July 08, 2024 1:4 4pm Chief Complaint Admit Date Amb Documentation October 25, 2024 9:5 5am possible strep January 06, 2025 9 :52am Chief Complaint Admit Date Amb Documentation October 25, 2024 9:5 5am possible strep January 06, 2025 9 :52am Go over results January 21, 2025 3 :04pm Reason for Visit Admit Date Bronchitis January 06, 2025 9 :52am Additional Source Comments INFORMATION SOURCE (unrecogn ized section and content) DATE CREATED AUTHOR 12/10/2018 [facility] DATE CREATED AUTHOR AUTHOR'S ORGANIZ ATION 01/22/2019 [facility] DATE CREATED AUTHOR AUTHOR'S ORGANIZ ATION 04/16/2021 [facility] DATE CREATED AUTHOR AUTHOR'S ORGANIZ ATION 05/13/2022 [facility] DATE CREATED AUTHOR AUTHOR'S ORGANIZ ATION 07/31/2024 [facility] DATE CREATED AUTHOR AUTHOR'S ORGANIZ ATION 12/06/2024 [facility] DATE CREATED AUTHOR AUTHOR'S ORGANIZ ATION 01/22/2025 [facility] Source Comments (unrecognize d section and content) In the event this informatio n is protected by the Federal Confidentiality of Alcohol and Drug Abuse Patient Records regulations: The Federal rules restrict any use of the information to criminally investigate or prosecute any alcohol or drug abuse patient.City HospitalIn the event this information is protected by the Federal Confidentiality of Alcohol and Drug Abuse Patient Records regulations: The Federal rules restrict any use of the information to criminally investigate or prosecute any alcohol or drug abuse patient.City HospitalIn the event this information is protected by the Federal Confidentiality of Alcohol and Drug Abuse Patient Records regulations: The Federal rules restrict any use of the information to criminally investigate or prosecute any alcohol or drug abuse patient.City HospitalIn the event this information is protected by the Federal Confidentiality of Alcohol and Drug Abuse Patient Records regulations: The Federal rules restrict any use of the information to criminally investigate or prosecute any alcohol or drug abuse patient.[facility] REASON FOR VISIT (unrecogniz ed section and content) ReasonCommentsMenorrhagiaPatient presents for menorrhagia. Care Teams (unrecognized sec tion and content) Team Status: Active Member Role Status Dates Miranda Botello MD Primary Care Provider Active Team Status: Inactive Member Role Status Dates Miranda Botello MD Primary Care Provider Active Start: May 28, 2024 End: May 28kayli Pope DOAttsrinivasa ProviderActiveStart: May 28, 2024 End: May 28, 2024 Team Status: Active Member Role Status Dates Miranda Botello MD Primary Care Provider Active Start: June 07, 2024 ЕКАТЕРИНА Rider-Sammy ProviderActiveStart: June 07, 2024 Team Status: Active Member Role Status Dates Miranda Botello MD Primary Care Provider Active Start: June 10, 2024 Scarlett Camara ProviderActiveStart: June 10, 2024 Team Status: Active Member Role Status Dates Miranda Botello MD Primary Care Provider Active Start: July 06, 2024 Bryan Price MDAttending ProviderActiveStart: July 06, 2024 Team Status: Active Member Role Status Dates Miranda Botello MD Primary Care Provider Active Start: July 08, 2024 Scarlett Camara ProviderActiveStart: July 08, 2024 Team Status: Active Member Role Status Dates Miranda Botello MD Primary Care Provider Active Start: February 12, 2024 Scarlett Camara ProviderActiveStart: February 12, 2024 Team Status: Inactive Member Role Status Dates Miranda Botello MD Primary Care Provide r, Attending Provider Active Start: April 29, 2024 End: April 29, 2024 Team Status: Inactive Member Role Status Dates Miranda Botello MD Primary Care Provide r, Attending Provider Active Start: December 11, 2023 End: December 11, 2023Team MemberRelationshipSpecialtyStart DateEnd Date Miranda Botello MD [address] [place] [address] [facility]04/26/17 Team Status: Active Member Role/Relationship Status Dates Miranda Botello MD Primary Care Provider Active Team Status: Active Member Role/Relationship Status Dates Miranda Botello MD Primary Care Provider Active Start: October 24, 2024 Shannan Blackman ProviderActiveStart: October 24, 2024 Team Status: Active Member Role/Relationship Status Dates Miranda Botello MD Primary Care Provider Active Start: October 25, 2024 Scarlett Camara ProviderActiveStart: October 25, 2024 Team Status: Active Member Role/Relationship Status Dates Miranda Botello MD Primary Care Provider Active Start: December 17, 2024 Shannan Brian ProviderActiveStart: December 17, 2024 Team Status: Inactive Member Role/Relationship Status Dates Miranda Botello MD Primary Care Provider Active Start: January 06, 2025 End: January 06, 2025Eron Thayer ProviderActiveStart: January 06, 2025 End: January 06, 2025 Team Status: Inactive Member Role/Relationship Status Dates Miranda Botello MD Primary Care Provider Active Start: January 21, 2025 End: January 21, 2025Eron Thayer ProviderActiveStart: January 21, 2025 End: January 21, 2025 Goals (unrecognized section and content) Goals may [...] ON THE PRIMARY CLINICAL RECORDS. [facility] [employer] [facility]. provides no warranty or guarantee of the accuracy or completeness of information in this document.
--- OUTSIDE RECORDS SUMMARY | 2025-02-03 07:14 | XMS_ITS | Encounter Summary ---
Author Organization [facility] Address [address] [place] [address] Care Team Providers Care Lieutenant General Name Role Phone Kimberly Boles MD Primary Care Provider [phone] Encounter Details DateTypeDepartmentCare Team (Latest Contact Info)Nvgfgtfhzxk50/10/2025Travel Social History Tobacco UseTypesPacks/DayYears UsedDateSmoking Tobacco: Never Assessed CommentsUnknownSex and Gender InformationValueDate RecordedSex Assigned at Not on fileLegal DlwGoruru57/15/2023 8:24 PM EDTGender IdentityNot on fileSexual OrientationNot on filedocumented as of this encounter Plan of Treatment DateTypeDepartmentCare Team (Latest Contact Info)Aancxoqbnrr32/26/2025 10:00 AM ESTConsult [facility] [address] [phone] Danny Abrams MD [address] [address] documented as of this encounter Visit Diagnoses Not on filedocumented in this encounter Care Teams Team MemberRelationshipSpecialtyStart DateEnd Date Kimberly Boles MD [address] [facility] [place] [phone] PCP - GeneralFamily Qbjlrbjv94/10/25documented as of this encounter
--- OUTSIDE RECORDS SUMMARY | 2025-02-03 07:14 | XMS_ITS | Clinical Summary ---
Author Organization [facility] Address [address] [place] [address] Care Team Providers Care Stockfeed Miller Name Role Phone Kimberly Boles MD Primary Care Provider [phone] Encounters DateTypeDepartmentCare HdpuMjtwrrtntni37/12/8593Qvolte33/10/2025Travelfrom Last 3 Months Social History Tobacco UseTypesPacks/DayYears UsedDateSmoking Tobacco: Never Assessed CommentsUnknownSex and Gender InformationValueDate RecordedSex Assigned at Not on fileLegal JehJwdquk59/15/2023 8:24 PM EDTGender IdentityNot on fileSexual OrientationNot on file Last Filed Vital Signs Vital SignReadingTime TakenCommentsBlood Pressure--Pulse--Temperature-- Respiratory Rate--Oxygen Saturation--Inhaled Oxygen Concentration--Oahwiw32 kg (194 lb)10/27/2017 12:00 PM BVUPhpadz473.4 cm (5')10/27/2017 12:00 PM EDTBody Mass Index37.8910/27/2017 12:00 PM EDT Plan of Treatment DateTypeDepartmentCare Team (Latest Contact Info)Jsdaeojpzpy57/26/2025 10:00 AM ESTConsult [facility] [address] [phone] Danny Abrams MD [address] [address] Insurance Care Teams Team MemberRelationshipSpecialtyStart DateEnd Date Kimberly Boles MD [address] [place] [address] PCP - GeneralFamily Bzauooik38/10/25
--- OUTSIDE RECORDS SUMMARY | 2025-02-03 07:14 | XMS_ITS | Clinical Summary ---
Author Organization [facility] tem Address [id number] [address] [place] [address] Care Team Providers Care Car Unloader Name Role Phone Kimberly Boles MD Primary Care Provider [phone] Allergies No known active allergies Medications MedicationSigDispense QuantityRefillsLast FilledStart DateEnd DateStatus IRON, FERROUS SULFATE, ORAL Take by mouth.Active dexlansoprazole (DEXILANT) 60 mg capsule Take by mouth.Active metoprolol succinate XL (TOPROL XL) 50 mg 24 hr tablet Take 1 tablet (50 mg total) by mouth.5Active Active Problems ProblemNoted DateDiagnosed DateFamily history of breast dcrseq7210/13/2021 Overview (10/13/2021): Two maternal aunts Family history of uterine ytmgti4510/13/2021 Overview (10/13/2021): Maternal grandmother and maternal aunt Migraine without aura10/13/2021 Overview (10/13/2021): Neuro consult placed Urinary lryhhlmefwrf82/27/2022 Overview (10/13/2021): Pelvic floor therapy ordered Iron deficiency anemia due to chronic blood loss05/13/2020Hypertension Encounters DateTypeDepartmentCare DlgfSrixfupcygp33/03/2025 7:43 AM EST - 01/20/2025 11:59 PM ESTHospital Encounter [facility] [address] [place] [address] Shannan Méndez APRN-CNP Menorrhagia with irregular cycle; Uterine leiomyoma, unspecified location; Abnormal pelvic ultrasound; Abnormal uterine bleeding (AUB) Discharge Disposition: Home01/20/2025Results Follow-Up [facility] [address] [place] [place] [address] Shannan Méndez APRN-CNP MR pelvis with and without jgujotud69/03/8021Qdwnaq02/09/2025Results Follow-Up [facility] [address] [place] [address] Shannan Méndez APRN-CNP Thyroid profile includes TSH FT4, CBC without diff, Ultrasound pelvic with ctfopzssusgn94/08/2025 2:06 PM EDT - 12/25/2024 11:59 PM EDTHospital Encounter [facility] [address] [place] [address] Shannan Méndez APRN-CNP Abnormal uterine bleeding (AUB); Menorrhagia with irregular cycle Discharge Disposition: Home12/25/20249802Zhtlhe39/18/2025 9:30 AM EDTOffice Visit [facility] [address] [place] [address] Shannan Méndez APRN-CNP Abnormal uterine bleeding (AUB) (Primary Dx); Menorrhagia with irregular cycle12/05/2024Travelfrom Last 3 Months Immunizations ImmunizationAdministration DatesNext DueInfluenza (IM) Preservative Free 02/02/2016Influenza, Injectable, MDCK, Edkxvsccpvkd52/24/6448Fgdv11/19/2013 Family History Medical HistoryRelationNameCommentsDiabetesFatherGlaucomaFatherHypertension FatherBreast cancerMaternal Aunt 1Breast cancerMaternal Aunt 2Bone cancer Maternal GrandfatherDiabetesMaternal GrandmotherHypertensionMaternal Grandmother Uterine cancerMaternal GrandmotherBrain TumorMotherCataractsMotherStomach cancer Paternal GrandfatherDiabetesPaternal GrandmotherMacular degenerationNeg Hx RelationNameStatusCommentsBrotherFatherMaternal Aunt 1AliveMaternal Aunt 2Alive Maternal GrandfatherMaternal GrandmotherMotherPaternal GrandfatherPaternal Grandmother Social History Tobacco UseTypesPacks/DayYears UsedDateSmoking Tobacco: NeverSmokeless Tobacco: Never Tobacco Cessation:Counseling Given: Not Answered Alcohol UseStandard Drinks/WeekCommentsNot Currently0 (1 standard drink = 0.6 oz pure alcohol)ChildcareAnswerDate NnaohvrlYfdflhxgdVyklhcv07/12/2019Employment AnswerDate VqlwyqalNgizesqzhfDtnktjk58/12/2019Hunger ScreeningAnswerDate RecordedWithin the past 12 months we worried whether our food would run out before we got money to buy more.Never True12/05/2024Within the past 12 months the food we bought just didn't last and we didn't have money to get more.Never True12/05/2024Purpose - LifeAnswerDate RecordedPurpose and direction in life Rlpqptp72/11/2021CommentsNoSex and Gender InformationValueDate Recorded Sex Assigned at BirthNot on fileLegal ExfQrhwex37/06/2015 11:57 AM EDTGender IdentityNot on fileSexual OrientationNot on file Last Filed Vital Signs Vital SignReadingTime TakenCommentsBlood Gpmrwwmx404/17454 9:48 AM EDT Oxhtp9157 2:09 PM DMKMleyzrdaxwq81 ??C (98.6 ??F)04/26/2017 2:09 PM EST Respiratory Gqcf2408 2:09 PM ESTOxygen Fgillmgwjv445%04/26/2017 2:09 PM ESTInhaled Oxygen Concentration--Akemhs82.5 kg (215 lb)01/20/2025 7:48 AM EST Eybcsq546.5 cm (5' 2 )01/20/2025 7:45 AM ESTBody Mass Index39.32103/22/2024 7:45 AM EST Plan of Treatment DateTypeDepartmentCare Team (Latest Contact Info)Ecebzfmxuxd40/17/2025 9:15 AM ESTProcedure visit [facility] [address] [place] [address] Gaby Zuleta MD [address] [place] [address] Health MaintenanceDue DateLast DoneCommentsDepression Fhhmjsbci78/04/1991Adult BMI Follow Up Plan1996DTaP,Tdap and Td Vaccines (2 - Td or Tdap)09/05/2022 09/05/2012Pap Smear507/, 10/13/2021Influenza Xnxfuzq4611/18/2024 01/10/2018, 02/02/2016Tobacco Btmwdhjlw30/dult BMI Screening Medical Devices Not on file Procedures Procedure NamePriorityDate/TimeAssociated DiagnosisCommentsMR PELVIS W WO CONT Dxylrlw2001/20/2025 8:51 AM EST Menorrhagia with irregular cycle Uterine leiomyoma, unspecified location Abnormal pelvic ultrasound Abnormal uterine bleeding (AUB) CBC (NO DIFF)Yczqobg3512/25/2024 2:55 PM EDT Abnormal uterine bleeding (AUB) Menorrhagia with irregular cycle THYROID PROFILE INCLUDES TSH IW0Ulykbjl36/08/2025 2:55 PM EDT Abnormal uterine bleeding (AUB) Menorrhagia with irregular cycle US PELVIC WITH PKCHPEYXABEMInmbfaw12/08/2025 2:47 PM EDT Abnormal uterine bleeding (AUB) Menorrhagia with irregular cycle HIGH RISK HPV W/MEAEZinmwhp63/27/2022 7:38 AM EDT from Last 3 Months or Most Recently Relevant to Health Maintenance Results * MR pelvis with and without [...] on 01/20/2025 10:06 AM Authorizing ProviderResult TypeResult StatusLisa Praveen Méndez PEOPLESOFT DEVELOPER-CNPIMG MRI ORDERABLESFinal Result * Thyroid profile includes TSH FT4 (12/25/2024 2:55 PM EDT)ComponentValueRef RangeTest MethodAnalysis TimePerformed AtPathologist SignatureFREE T40.960.61 - 1.60 ng/dL12/25/2024 7:41 PM [facility]ORATORYTSH1.68 0.49 - 4.67 uIU/mL12/25/2024 7:41 PM [facility] Specimen (Source)Anatomical Location / LateralityCollection Method / Volume Collection TimeReceived TimeBloodVenous blood / UnknownVenipuncture / Unknown 12/25/2024 2:55 PM EDT1 2:55 PM EDT Narrative Authorizing ProviderResult TypeResult StatusLisa Praveen Méndez PEOPLESOFT DEVELOPER-CNPLAB BLOOD ORDERABLESFinal ResultPerforming OrganizationAddressCity/State/ZIP CodePhone Number [facility] [address] [place] [phone], * CBC without diff (12/25/2024 2:55 PM EDT)ComponentValueRef RangeTest Method Analysis TimePerformed AtPathologist SignatureWBC8.04 - 11 x10E9/L1 6:56 PM [facility] LABORATORYRBC Count4.053.8 - 5.2 X10E12/L 12/25/2024 6:56 PM [facility] JBWTFLCLFOQiyqyxhbac44.111.7 - 15.5 g/dL12/25/2024 6:56 PM [facility] LABORATORYHematocrit 38.335 - 47 %12/25/2024 6:56 PM [facility] UQCFPBILWIJVB7646 - 100 fL12/25/2024 6:56 PM [facility] EPZCSPZJOSABF81.427 - 34 pg12/25/2024 6:56 PM [facility] KFDRFKBUYHTYKZ93.232 - 36 g/dL12/25/2024 6:56 PM [facility] NXGNICHNIJIZR71.311.5 - 15 %12/25/2024 6:56 PM [facility] LABORATORYPlatelet Alyqy571234 - 450 X10E9/L1 6:56 PM [facility] ABZJGVYAUYQIP31.47 - 12 fL12/25/2024 6:56 PM [facility] LABORATORYSpecimen (Source)Anatomical Location / LateralityCollection Method / VolumeCollection TimeReceived TimeBloodVenous blood / UnknownVenipuncture / Ygsudrs2812/25/2024 2:55 PM EDT1 2:55 PM EDT Narrative Authorizing ProviderResult TypeResult StatusLisa Praveen Méndez PEOPLESOFT DEVELOPER-CNPLAB BLOOD ORDERABLESFinal ResultPerforming OrganizationAddressCity/State/ZIP CodePhone Number [facility] [address] [place] [address], [place] [phone] * Ultrasound pelvic with transvaginal (12/25/2024 2:47 PM EDT)Anatomical Region LateralityModalityBody, PelvisUltrasoundSpecimen (Source)Anatomical Location / LateralityCollection Method / VolumeCollection TimeReceived Time12/26/2024 9:30 AM EDT Narrative 12/26/2024 9:50 AM EDT US PELVIC WITH TRANSVAGINAL HISTORY: Abnormal uterine bleeding, menorrhagia, right oophorectomy COMPARISON: Pelvic ultrasound 10/22/2021 TECHNIQUE: Transabdominal and transvaginal sonographic evaluation of the pelvis. ??Transabdominal imaging performed to evaluate for extra adnexal pelvic pathology. ??Transvaginal imaging performed for better delineation of the adnexal and endometrial contents. ??Color Doppler used. FINDINGS: Uterus: 7.3 x 4.3 [...] to determine whether they abut the endometrium. ?? The endometrium is unremarkable. Cervical nabothian cysts. Anechoic structure measuring 3.4 x 2.7 x 3.4 cm within the left ovary, likely represents a dominantfollicle. ??Normal color flow bilaterally. ??No adnexal masses demonstrated. ??No free fluid. ?? IMPRESSION: Multiple uterine fibroids. Difficult to determine whether they abut the endometrium sonographically. Consider contrast-enhanced MRI if clinically indicated. Approved by Cecilia Sauceda MD ??on 12/26/2024 9:30 AM Ang Hansen MD have personally reviewed the image(s) and agree with and/or edited the report Finalized by Ang Ellison MD on 12/26/2024 9:50 AM Procedure Note Ang Ellison MD - 12/26/2024 US PELVIC WITH TRANSVAGINAL HISTORY: Abnormal uterine bleeding, menorrhagia, right oophorectomy COMPARISON: Pelvic ultrasound 10/22/2021 TECHNIQUE: Transabdominal and transvaginal sonographic evaluation of thepelvis. Transabdominal imaging performed to evaluate for extra adnexalpelvic pathology. Transvaginal imaging performed for better delineationof the adnexal and endometrial contents. Color Doppler used. FINDINGS: Uterus: 7.3 x 4.3 x 6.1 cm Endometrial Thickness: 0.95 cm Right Ovary: Surgically absent. Left Ovary: 3.6 x 3.0 x 3.5 cm The uterus demonstrates appropriate size. Anechoic structure within theuterine fundus which is nonspecific however may represent a myometrialcyst or cystic degeneration of a fibroid. There are multiple hypoechoic regions likely representing uterine fibroidsthe largest of which measures 2.1 cm. It is difficult to determine whetherthey abut the endometrium. The endometrium is unremarkable. Cervical nabothian cysts. Anechoic structure measuring 3.4 x 2.7 x 3.4 cm within the left ovary,likely represents a dominant follicle. Normal color flow bilaterally. Noadnexal masses demonstrated. No free fluid. IMPRESSION: Multiple uterine fibroids. Difficult to determine whether they abut the endometrium sonographically. Consider contrast-enhanced MRI if clinically indicated. Approved by Cecilia Sauceda MD on 12/26/2024 9:30 AM Ang Hansen MD have personally reviewed the image(s) and agree withand/or edited the report Finalized by Ang Ellison MD on 12/26/2024 9:50 AM Authorizing ProviderResult TypeResult StatusShannan Méndez PEOPLESOFT DEVELOPER-CNPIMG US ORDERABLESFinal Result * High risk HPV w/latha (10/13/2021 7:38 AM EDT)ComponentValueRef RangeTest MethodAnalysis TimePerformed AtPathologist SignatureHpv specimen typeThinPrep 10/14/2021 7:39 AM EDTSUNQUESTHpv 16NegativeNegative^Fndykwgs15/29/2022 2:01 PM [facility] LABHpv 18NegativeNegative^Tflvpzxe74/29/2022 2:01 PM [facility] LABOther high risk hpvNegative Negative^Izrtqfii83/29/2022 2:01 PM [facility] LABComment: HPV types 31,33,35,39,45,52,56,58,59,66 and 68 DNA were undetectable. Specimen (Source)Anatomical Location / LateralityCollection Method / Volume Collection TimeReceived SttzWFTYN30/27/2022 7:38 AM EDT10/14/2021 7:38 AM EDT Narrative Authorizing ProviderResult TypeResult Gregoria Méndez PEOPLESOFT DEVELOPER-CNPLAB BLOOD ORDERABLESFinal ResultPerforming OrganizationAddressCity/State/ZIP CodePhone Number [facility] [address] [facility] [address] [place] [address] from Last 3 Months or Most Recently Relevant to Health Maintenance Insurance Care Teams Team MemberRelationshipSpecialtyStart DateEnd Date Kimberly Boles MD [address] [place] [phone] PCP - General04/26/17
--- OUTSIDE RECORDS SUMMARY | 2025-02-03 07:14 | XMS_ITS | Encounter Summary ---
Author Organization [email or web address] [employer] Address [id number] [address] [place] [address] Care Team Providers Care Aircraft Structural Fitter Name Role Phone Kimberly Boles MD Primary Care Provider [phone] Encounter Details DateTypeDepartmentCare Team (Latest Contact Info)Xdqfwkiangy89/03/2025Travel Social History Tobacco UseTypesPacks/DayYears UsedDateSmoking Tobacco: NeverSmokeless Tobacco: NeverAlcohol UseStandard Drinks/WeekCommentsNot Currently0 (1 standard drink = 0.6 oz pure alcohol)ChildcareAnswerDate EkuaubwwIczhiohiaZmcnkot99/12/2019 EmploymentAnswerDate SscqdjwkJkhyfmguleWqntrtl86/12/2019Hunger ScreeningAnswer Date RecordedWithin the past 12 months we worried whether our food would run out before we got money to buy more.Never True12/05/2024Within the past 12 months the food we bought just didn't last and we didn't have money to get more.Never True12/05/2024Purpose - LifeAnswerDate RecordedPurpose and direction in life Rtbgmci15/11/2021CommentsNoSex and Gender InformationValueDate Recorded Sex Assigned at BirthNot on fileLegal CksPkkzmu02/06/2015 11:57 AM EDTGender IdentityNot on fileSexual OrientationNot on filedocumented as of this encounter Plan of Treatment DateTypeDepartmentCare Team (Latest Contact Info)Urtrbiuvpsf08/17/2025 9:15 AM ESTProcedure visit [facility] [address] [place] [address] Gaby Zuleta MD [address] [facility] [place] [address] documented as of this encounter Visit Diagnoses Not on filedocumented in this encounter Additional Health Concerns AssessmentNoted TimeA Body Mass Index follow-up plan has been documented for the xmvfiwh0210/13/2021 1:02 PM EDTdocumented as of this encounter Care Teams Team MemberRelationshipSpecialtyStart DateEnd Date Kimberly Boles MD [address] [place] [address] PCP - General04/26/17documented as of this encounter
--- OUTSIDE RECORDS SUMMARY | 2025-02-03 07:14 | XMS_ITS | Encounter Summary ---
Author Organization [facility] Address [address] [place] [address] Care Team Providers Care Pharmacist'S Aide Name Role Phone Kimberly Boles MD Primary Care Provider [phone] Encounter Details DateTypeDepartmentCare Team (Latest Contact Info)Ybceiysxosk15/12/2025Travel Social History Tobacco UseTypesPacks/DayYears UsedDateSmoking Tobacco: Never Assessed CommentsUnknownSex and Gender InformationValueDate RecordedSex Assigned at Not on fileLegal ZfnKnjshh02/15/2023 8:24 PM EDTGender IdentityNot on fileSexual OrientationNot on filedocumented as of this encounter Plan of Treatment DateTypeDepartmentCare Team (Latest Contact Info)Gzhbhhpgqpu83/26/2025 10:00 AM ESTConsult [facility] [address] [phone] Danny Abrams MD [address] [address] documented as of this encounter Visit Diagnoses Not on filedocumented in this encounter Care Teams Team MemberRelationshipSpecialtyStart DateEnd Date Kimberly Boles MD [address] [facility] [place] [phone] PCP - GeneralFamily Xflqpdpa43/10/25documented as of this encounter
--- OUTSIDE RECORDS SUMMARY | 2025-02-03 07:14 | XMS_ITS | Encounter Summary ---
Author Organization [facility] [employer] Address [id number] [address] [place] [address] Care Team Providers Care Medical Registrar Name Role Phone Kimberly Boles MD Primary Care Provider [phone] Encounter Details DateTypeDepartmentCare Team (Latest Contact Info)Rqlffktyava82/03/2025Results Follow-Up [facility] Obstetrics/[facility]necology [address] [facility] [id number] Shannan Méndez, [employer]LECT[employer]TE[employer] SYSTEMS MECHANIC-PROGRAM MANAGER TRANSPORTATION [address] [place], [place] [id number] MR pelvis with and without contrast Social History Tobacco UseTypesPacks/DayYears UsedDateSmoking Tobacco: NeverSmokeless Tobacco: NeverAlcohol UseStandard Drinks/WeekCommentsNot Currently0 (1 standard drink = 0.6 oz pure alcohol)ChildcareAnswerDate CvzhczhlKhphfqeqcRutjaou51/12/2019 EmploymentAnswerDate NdegfbvoKtmrkhzwmaJuyzvqm03/12/2019Hunger ScreeningAnswer Date RecordedWithin the past 12 months we worried whether our food would run out before we got money to buy more.Never True12/05/2024Within the past 12 months the food we bought just didn't last and we didn't have money to get more.Never True12/05/2024Purpose - LifeAnswerDate RecordedPurpose and direction in life Xhhsigk82/11/2021CommentsNoSex and Gender InformationValueDate Recorded Sex Assigned at BirthNot on fileLegal NalLbjeai76/06/2015 11:57 AM EDTGender IdentityNot on fileSexual OrientationNot on filedocumented as of this encounter Plan of Treatment DateTypeDepartmentCare Team (Latest Contact Info)Lmpikveqwug23/17/2025 9:15 AM ESTProcedure visit [facility] [address] [place] [id number] Gaby Zuleta MD [address] [facility] [place] [address] documented as of this encounter Visit Diagnoses Not on filedocumented in this encounter Additional Health Concerns AssessmentNoted TimeA Body Mass Index follow-up plan has been documented for the kywvhdv7410/13/2021 1:02 PM EDTdocumented as of this encounter Care Teams Team MemberRelationshipSpecialtyStart DateEnd Date Kimberly Boles MD [address] [place] [id number] PCP - General04/26/17documented as of this encounter
--- OUTSIDE RECORDS SUMMARY | 2025-02-03 07:14 | XMS_ITS | Clinical Summary ---
Author Organization [facility] Address [address] [place], [place] [id number] Care Team Providers Care Hot End Operator Name Role Phone Kimberly Boles MD Primary Care Provider [phone] Allergies No known active allergies Medications MedicationSigDispense QuantityRefillsLast FilledStart DateEnd DateStatus Dexlansoprazole (DEXILANT) 60 mg CpDM Take by mouth.Active metoprolol tartrate, short acting, (LOPRESSOR) 50 mg tablet Take 50 mg by mouth once daily.Active norgestimate 0.25 mg-ethinyl estradiol 35 mcg (SPRINTEC) 0.25-35 mg-mcg per tablet Take 1 tablet by mouth once daily.Active fluticasone propionate (FLONASE NASAL) Use in the nose.Active meclizine (ANTIVERT) 25 mg tab Take 25 mg by mouth three times daily.Active cetirizine-pseudoephedrine (CETIRI-D) 5-120 mg per tablet Take 1 tablet by mouth twice daily.Active ferrous sulfate (IRON ORAL) Take by mouth.Active metoprolol succinate ER (TOPROL XL) 50 mg 24 hr tablet Take 50 mg by mouth once daily.06/12/2020ctive pantoprazole DR (PROTONIX) 40 mg tablet Take 40 mg by mouth.Active Active Problems ProblemNoted DateDiagnosed DateIron deficiency anemia due to chronic blood loss 05/13/2020 Immunizations ImmunizationAdministration DatesNext Dueinfluenza (IIV3) vaccine, trivalent, PF (AFLURIA, FLUARIX, FLULAVAL, FLUVIRIN, FLUZONE)02/02/2016influenza (ccIIV4) vaccine, age 6+ mo, quadrivalent (FLUCELVAX)01/10/2018tetanus diphtheria pertussis (Tdap) vaccine, age 7+ yr (ADACEL, BOOSTRIX)09/05/2012 Family History Medical HistoryRelationCommentsCancerMotherBrain tumorRelationStatusComments MotherOther Social History Tobacco UseTypesPacks/DayYears UsedDateSmoking Tobacco: NeverSmokeless Tobacco: NeverPHQ-2AnswerDate RecordedPHQ-2 gozov205rea Deprivation IndexAnswer Date RecordedNational Score (1-100), lower number is lower riskNot on file 05/13/2020tate Score (1-10), lower number is lower riskNot on file05/13/2020 Data from: https://www.neighborhoodatlas.medicine.[facility].edu/. Last address used for calculationNot on file05/13/2020CommentsNoSex and Gender Information ValueDate RecordedSex Assigned at BirthNot on fileLegal MgvUkybkn36/15/2021 1:15 PM ESTGender IdentityNot on fileSexual OrientationNot on file Last Filed Vital Signs Vital SignReadingTime TakenCommentsBlood Tlhopfnq470/6804 2:17 PM EDT Vdmrt1312/07/2021 2:17 PM FPAIdxotgbzbgz60.3 ??C (97.4 ??F)06/24/2020 2:17 PM EDTRespiratory Rkpl386206/24/2020 2:17 PM EDTOxygen Ygytebfrql92%06/24/2020 2:17 PM EDTInhaled Oxygen Concentration--Rjjfpd07.1 kg (207 lb 6.4 oz)06/24/2020 2:17 PM YPJNvmfyz950.9 cm (5' 0.98 )06/24/2020 2:17 PM EDTBody Mass Index39.21 06/24/2020 2:17 PM EDT Plan of Treatment Health MaintenanceDue DateLast DoneCommentsAnxiety Ndrkwnhpl10/04/1997Depression Tydogfqsp93/04/1997HIV Bmdvsower41/04/1997Hepatitis C Jvrklnmlh07/04/1997 Hepatitis B Vaccine (1 of 3 - 19+ 3-dose series)1997Cervical Cancer Rrosumhog62/04/2000Mammogram Ozuoeepuo50/04/2019DTaP,Tdap,Td Vaccine (2 - Td or Tdap)/CT Ksmfabpcquah03/04/2024ologuard (FIT-DNA)08/22/2023 Aiebmycglwp85/04/2024olorectal Cancer Ivspnlzsn79/04/2024iabetes Screening /09/2020, 05/13/2020, 04/26/2017Fecal Occult Blood08/22/2023Lipid Jncxobojj00/04/8842Epjukpieqvbrr28/04/2024ovid-19 Vaccine (1 season) 2024Influenza Vaccine (#1), 02/02/2016 Procedures Procedure NamePriorityDate/TimeAssociated DiagnosisCommentsCOMPREHENSIVE METABOLIC FGVZTDdihsrt56/07/2021 1:57 PM EDT Iron deficiency anemia due to chronic blood loss from Last 3 Months or Most Recently Relevant to Health Maintenance Results * (ABNORMAL) COMP METABOLIC PANEL (06/24/2020 1:57 PM EDT)ComponentValueRef RangeTest MethodAnalysis TimePerformed AtPathologist SignatureProtein, Total 7.16.3 - 8.0 g/dL06/24/2020 2:54 PM EDTCMcCull[facility] Cancer CareAlbumin4.53.9 - 4.9 g/dL06/24/2020 2:54 PM EDTCMcCullough-Hyde [facility] Cancer CareCalcium9.08.5 - 10.2 mg/dL06/24/2020 2:54 PM EDTCMcCullough-Hyde [facility] Cancer CareBilirubin, Total0.20.2 - 1.3 mg/dL06/24/2020 2:54 PM EDTCMcCullough-Hyde [facility] Cancer CareAlkaline Svwbrawtlqe4635 - 123 U/L 06/24/2020 2:54 PM EDTCMcCullough-Hy[facility] Cancer SvunUHU5068 - 35 U/L 06/24/2020 2:54 PM EDTCMcCullough-Hy[facility] Cancer YtqyUsceocg744(H)74 - 99 mg/dL06/24/2020 2:54 PM EDTCMcCullough-Hyde [facility] Comment: The [place] [employer] (ADA) provides guidance for cutoff [...] Standards of Medical Care in Diabetes 2016, [place] [employer]. Diabetes Care. 2016.39(Suppl 1). PQI015 - 21 mg/dL06/24/2020 2:54 PM [facility] Creatinine0.640.58 - 0.96 mg/dL06/24/2020 2:54 PM [facility] GogsXcohzy117855 - 144 mmol/L06/24/2020 2:54 PM [facility] Cancer CarePotassium3.93.7 - 5.1 mmol/L06/24/2020 2:54 PM EDT [facility] HljmXeywseqc564(H)97 - 105 mmol/L06/24/2020 2:54 PM [facility] XrmjYC73280 - 30 mmol/L06/24/2020 2:54 PM [facility] Cancer CareAnion Gap7(L)9 - 18 mmol/L 06/24/2020 2:54 PM [facility] OkexBFG408 - 38 U/L 06/24/2020 2:54 PM [facility] Cancer CareeGFR->6004 2:54 PM [facility] Cancer CareeGFR- All Other Races>60.06/24/2020 2:54 PM [facility] Cancer CareComment: eGFR (Estimated GFR) Units of measure: mL/min/1.73 [...] eGFR may not accurately reflect actual GFR. Specimen (Source)Anatomical Location / LateralityCollection Method / Volume Collection TimeReceived TimeBloodBLOOD SPECIMEN / Gargvbz6306/24/2020 1:57 PM EDT 06/24/2020 2:14 PM EDT Narrative Authorizing ProviderResult TypeResult StatusBlake Bui MDLABORATORYFinal ResultPerforming OrganizationAddressCity/State/ZIP CodePhone Number [facility] [address] [address] [facility] [address] [place] [address] from Last 3 Months or Most Recently Relevant to Health Maintenance Insurance Care Teams Team MemberRelationshipSpecialtyStart DateEnd Date Kimberly Boles MD [address] [place] [phone] PCP - GeneralFamily Medicine05/04/20
== END 2025-02-03 07:11 | disposition home or self-care (01) ==
LOC: US 07:10
PROVIDERS: PCP Family Medicine; Visit Provider Family Medicine
DX: D13.5 Benign neoplasm of extrahepatic bile ducts (principal); R10.11 Right upper quadrant pain; K76.0 Fatty (change of) liver, not elsewhere classified
CPT/HCPCS: 76705